=== PATIENT | female | born 1930 | race Two or more races ===

== ENCOUNTER 2016-08-03 19:11 | Inpatient (IN) | payer MEDICARE, OTHER ==
[~2016-08-03] VITALS: Ht 152.4 cm; Wt 69.5 kg
[~2016-08-03 19:11] MED LIST: ACET1TAB33 PO; AMIT25TA PO; AMOX1TAB10 PO; ANAS1TAB PO; ASPI-482 PO; BRIM5DRO4 OP; CALC1TAB PO; CARB15DR98 OP; CEPH-264 PO; CLIN300C86 PO; CLOP75TA PO; CYCL1DRO EACHEYE; DOCU100C5 PO; ERTA1VIA2 IV; FAMO40TA4 PO; FENO145T2 PO; FENO150C3 PO; FERR-26 PO; FLAX100031 PO; INSU100I13 SQ; INSU100I17 SQ; INSU100V31 SQ; INSU100V8 SQ; LEVO25TA4 PO; LINA5TAB PO; LISI2.5T PO; LORA10TA3 PO; MECL12.52 PO; METF500T9 PO; MUPI22OI TP; MUPI22OI2 TP; NIAC500T9 PO; PREG150C PO; PREG50CA PO; SYNTHROID; TRAV2.5D2 OP; TRAV5DRO LEFTEYE
[2016-08-03 19:59] LABS: BASO # 0.1 x10^3/uL (0.0-0.2); BASO % 0 % (0-3); EOS % 0 % (0-3); HEMATOCRIT 28.1 % (36.0-47.0); HEMOGLOBIN 9.1 g/dL (12.0-15.5); LYMPH # 0.6 x10^3/uL (1.0-4.8); LYMPH % 3 % (24-48); MEAN CORPUSCULAR HEMOGLOBIN 27 pg (25-35); MEAN CORPUSCULAR HGB CONC 33 g/dL (31-37); MEAN CORPUSCULAR VOLUME 83 fL (79-100); MONO % 4 % (0-9); NEUT % 92 % (31-73); PLATELET COUNT 202 x10^3/uL (140-400); RED BLOOD COUNT 3.39 x10^6/uL (3.50-5.40); RED CELL DISTRIBUTION WIDTH 15.5 % (11.5-14.5); WHITE BLOOD COUNT 20.2 x10^3/uL (4.0-11.0)
[2016-08-03] MEDS ORDERED: IV NORMAL SALINE 1000ML BAG 1,000 ML IV ONE (20:00)
[2016-08-03] MEDS ORDERED: ACETAMINOPHEN 500 MG TABLET PO ONE (20:00)
[2016-08-03 20:05] LABS: CALCIUM 8.8 mg/dL (8.5-10.1); CREATININE 1.1 mg/dL (0.6-1.0); GFR 47.3; POTASSIUM 3.5 mmol/L (3.5-5.1)
[2016-08-03 20:11] LABS: ALBUMIN 2.7 g/dL (3.4-5.0); ALBUMIN/GLOBULIN RATIO 0.6 (1.0-1.7); TOTAL BILIRUBIN 0.3 mg/dL (0.2-1.0)
[2016-08-03 20:36] LABS: HYPOCHROMIA SLIGHT; PLT ESTIMATE ADEQUATE (ADEQUATE)
[2016-08-03 20:37] LABS: ANISOCYTOSIS SLIGHT; TOXIC GRANULATION SLIGHT
[2016-08-03 20:43] LABS: OBC FLU VALID
[2016-08-03] MEDS ORDERED: CEFTRIAXONE 1GM IVPB FOR OMNI 50 ML IV ONE (21:00)
[2016-08-03] MEDS: IV NORMAL SALINE 1000ML BAG 1,000 ML IV SCH (21:12)
[2016-08-03] MEDS ORDERED: ONDANSETRON PF 4 MG/2 ML VIAL. IV PRN (21:15)
[2016-08-03] MEDS ORDERED: IV NORMAL SALINE 500ML BAG 500 ML IV ONE (21:30)
[2016-08-04] VITALS (14 sets, daily range): BP systolic 55–140; BP diastolic 35–58
[2016-08-04] MEDS ORDERED: MULT-671 PO (01:15)
[2016-08-04] MEDS ORDERED: LEVO50TA5 PO (01:15)
[2016-08-04] MEDS ORDERED: INSU100I27 SQ (01:15)
[2016-08-04] MEDS ORDERED: CHLO15MO2 (01:15)
[2016-08-04] MEDS ORDERED: ACET325T21 PO (01:15)
[2016-08-04] MEDS ORDERED: FURO-69 PO (01:15)
[2016-08-04] MEDS ORDERED: PANT40TA3 PO (01:15)
[2016-08-04] MEDS ORDERED: CEFE1VIA5 IJ (01:15)
[2016-08-04] MEDS ORDERED: LACT1CAP2 PO (01:15)
[2016-08-04] MEDS ORDERED: AMLO5TAB2 PO (01:15)
[2016-08-04] MEDS ORDERED: SILV20CR4 TP (01:15)
[2016-08-04] MEDS: ACETAMINOPHEN 325 MG TABLET. PO PRN ×2 (02:21→10:51)
[2016-08-04] MEDS: IV NORMAL SALINE 1000ML BAG 1,000 ML IV SCH ×2 (05:12→13:12)
--- NOTE | 2016-08-04 06:01 | EKG ---
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
--- NOTE | 2016-08-04 08:00 | RAD ---
Indication: Fever today. Hypertension. Technique: Upright portable chest radiograph was obtained. Comparison is from July 10, 2015. Findings: There is minimal basilar atelectasis or less likely infiltrate. Upper lung spann are clear. The heart is not enlarged. The pulmonary vasculature may be mildly cephalized. Right PICC line is noted. There are degenerative changes in the shoulders. Impression: 1. Mild basilar atelectasis and/or infiltrate. 2. Mild vascular congestion also suspected.
--- NOTE | 2016-08-04 09:16 | PDOC ---
Infectious Disease Note Subjective Subjective Pt known to us, was on cefepime at rehab , came here with fever 1 days origin, no n/v/pain was walking and doing really good per daughter. Diarrhea here today. culture and c diff ordered and pending ROS RIYA HEENT: Denies blurred vision, sore throat CV: Denies chest pain RESP: Denies shortness of air, cough GI: Denies n/v/d NEURO: Denies confusion, dizziness MSK: Denies weakness, joint pain/swelling Vital Sign Vital Signs Vital Signs Date Time Temp Pulse Resp B/P Pulse Ox O2 Delivery O2 Flow Rate FiO2 08/04/16 07:00 100.4 91 18 102/42 91 Room Air 100.4 Physical Exam PHYSICAL EXAM GENERAL: NAD, Alert HEENT: PERRL, OC/OP NECK: Supple, no JVD, no LN LUNGS: Clear HEART: S1S2, no gallop, no murmur ABD: Soft, NT, no organomegaly, no rebound EXT: No edema, no cyanosis,, left foot wound clean UR COORDINATOR: Alert, oriented x 3, no focal neurologic deficit SKIN: No rash IV: picc site good Labs Lab Laboratory Tests Test 08/03/16 19:35 08/03/16 19:50 08/03/16 20:09 08/04/16 03:29 White Blood Count 20.2x10^3/uL (4.0-11.0) Red Blood Count 3.39x10^6/uL (3.50-5.40) Hemoglobin 9.1g/dL (12.0-15.5) Hematocrit 28.1% (36.0-47.0) Mean Corpuscular Volume 83fL (79-100) Mean Corpuscular Hemoglobin 27pg (25-35) Mean Corpuscular Hemoglobin Concent 33g/dL (31-37) Red Cell Distribution Width 15.5% (11.5-14.5) Platelet Count 202x10^3/uL (140-400) Neutrophils (%) (Auto) 92% (31-73) Lymphocytes (%) (Auto) 3% (24-48) Monocytes (%) (Auto) 4% (0-9) Eosinophils (%) (Auto) 0% (0-3) Basophils (%) (Auto) 0% (0-3) Neutrophils # (Auto) 18.6x10^3uL (1.8-7.7) Lymphocytes # (Auto) 0.6x10^3/uL (1.0-4.8) Monocytes # (Auto) 0.9x10^3/uL (0.0-1.1) Eosinophils # (Auto) 0.0x10^3/uL (0.0-0.7) Basophils # (Auto) 0.1x10^3/uL (0.0-0.2) Segmented Neutrophils % 81% (35-66) Band Neutrophils % 15% (0-9) Lymphocytes % 4% (24-48) Toxic Granulation Slight Platelet Estimate Adequate (ADEQUATE) Hypochromasia Slight Anisocytosis Slight Sodium Level 136mmol/L (136-145) Potassium Level 3.5mmol/L (3.5-5.1) Chloride Level 102mmol/L (98-107) Carbon Dioxide Level 24mmol/L (21-32) Anion Gap 10 (6-14) Blood Urea Nitrogen 32mg/dL (7-20) Creatinine 1.1mg/dL (0.6-1.0) Estimated GFR (Cockcroft-Gault) 47.3 BUN/Creatinine Ratio 29 (6-20) Glucose Level 80mg/dL (70-99) Lactic Acid Level 1.4mmol/L (0.4-2.0) Calcium Level 8.8mg/dL (8.5-10.1) Total Bilirubin 0.3mg/dL (0.2-1.0) Aspartate Amino Transf (AST/SGOT) 17U/L (15-37) Alanine Aminotransferase (ALT/SGPT) 13U/L (14-59) Alkaline Phosphatase 81U/L (46-116) Total Protein 7.0g/dL (6.4-8.2) Albumin 2.7g/dL (3.4-5.0) Albumin/Globulin Ratio 0.6 (1.0-1.7) Glucose (Fingerstick) 85mg/dL (70-99) 132mg/dL (70-99) Influenza Type A Antigen Negative (NEGATIVE) Influenza Type B Antigen Negative (NEGATIVE) Objective Assessment Fever Leukocytosis Left foot wound /osteo DM Diarrhea rule out c diff Plan Plan of Care iv vanc and zosyn, po vanc check cultures and c diff d/w dr Mcdonough d/w daughter supportive care JOHANA MALDONADO MD Aug 04, 2016 09:16
[2016-08-04] MEDS ORDERED: ACETAMINOPHEN 325 MG TABLET. PO PRN (09:30)
[2016-08-04] MEDS ORDERED: VANCOMYCIN 1.5 GM in IV NORMAL SALINE 500ML BAG 500 ML IV ONE (09:30)
[2016-08-04] MEDS ORDERED: DEXTROSE 50% 25 GM / 50ML DISP.SYRIN. IV PRN (09:30)
[2016-08-04] MEDS ORDERED: ACETAMINOPHEN/CODEINE 300/30MG TABLET PO PRN (09:30)
--- NOTE | 2016-08-04 09:39 | PDOC ---
Provider Note Provider Note Pt seen.H&P dictated. #[id number] JAMES CORCORAN MD Aug 04, 2016 09:39
[2016-08-04] MEDS ORDERED: FLUCONAZOLE 200MG/100ML PREMIX 100 ML IV SCH (10:00)
[2016-08-04] MEDS ORDERED: LISINOPRIL 2.5 MG TABLET PO SCH (10:30)
[2016-08-04] MEDS ORDERED: HEPARIN PF for SUB-Q USE 5,000 UNIT/0.5 ML VIAL. SQ SCH (10:30)
[2016-08-04] MEDS ORDERED: FUROSEMIDE 20 MG TABLET PO SCH (10:30)
[2016-08-04] MEDS ORDERED: AMLODIPINE BESYLATE 5 MG TABLET PO SCH (10:30)
[2016-08-04] MEDS ORDERED: IV NORMAL SALINE 1000ML BAG 1,000 ML IV SCH ×2 (10:30→15:30)
--- NOTE | 2016-08-04 10:40 | EKG ---
[facility] [address] [place] [address] Test Date: 2016-08-04 Test Time: 10:38:20 Pat Name: CHRIS CURRIE Department: Room: 648 1 Gender: F Master [place]: HERMINIA : 1930 Requested By: JAMES CORCORAN Order Number: [id number] Reading MD: Kvng Oneal Measurements Intervals [place] Rate: 101 P: 27 MI: 154 QRS: 20 QRSD: 90 T: 22 QT: 338 QTc: 439 Interpretive Statements SINUS TACHYCARDIA NO SPECIFIC ECG ABNORMALITIES Electronically Signed On 08-04-2016 10:55:44 NETWORK DESIGNER by Kvng Oneal
[2016-08-04] MEDS: CLOPIDOGREL BISULFATE 75 MG TABLET PO SCH (10:51)
[2016-08-04] MEDS: PREGABALIN 50 MG CAPSULE PO SCH ×2 (10:52→21:09)
[2016-08-04] MEDS: ASPIRIN ENTERIC COATED 81 MG TABLET.DR. PO SCH (10:53)
[2016-08-04] MEDS: LINAGLIPTIN 5 MG TABLET PO SCH (10:53)
[2016-08-04] MEDS: PANTOPRAZOLE 40 MG TABLET. PO SCH (10:53)
[2016-08-04] MEDS: LEVOTHYROXINE 50 MCG TABLET PO SCH (10:53)
[2016-08-04] MEDS: VANCOMYCIN 125 MG/2.5 ML ORAL SOLUTION. PO SCH ×5 (10:54→22:17)
[2016-08-04] MEDS: ANASTROZOLE 1 MG TABLET PO SCH (11:09)
[2016-08-04] MEDS: INSULIN ASPART 300 UNITS/3 ML INSULN.PEN SQ SCH ×2 (12:00→18:13)
[2016-08-04] MEDS ORDERED: ALBUTEROL SULFATE 2.5 MG/3 ML NEBU. NEB ONE (12:30)
[2016-08-04] MEDS ORDERED: HEPARIN for IV BOLUS 10,000 UNIT/10 ML VIAL. IV PRN (12:45)
[2016-08-04 12:56] LABS: FIO2 ABG 32; HCO3 ABG 13 mmol/L (21-28); PCO2 ABG 22 mmHg (35-46); PO2 ABG 63 mmHg (65-108); SAT O2 ABG 91 % (92-99)
--- NOTE | 2016-08-04 12:56 | EKG ---
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
[2016-08-04] MEDS ORDERED: FUROSEMIDE 40 MG/4 ML VIAL IVP ONE (13:00)
[2016-08-04] MEDS ORDERED: ASPIRIN 325 MG TABLET PO ONE (13:00)
--- NOTE | 2016-08-04 13:08 | PDOC2 ---
KAYLA WAITE JAVA J2EE LEAD 08/04/16 1308: CARDIAC CONSULT DATE OF CONSULT Date of Consult DATE: 08/04/16 TIME: 12:30 REASON FOR CONSULT Reason for Consult: Elevated troponin REFERRING PHYSICIAN Referring Physician: Vane SOURCE Source: Caregiver (daughter), Chart review, Patient HISTORY OF PRESENT ILLNESS HISTORY OF PRESENT ILLNESS This is an 86 yo female admitted for fever and diarrhea. Talked to son briefly via phone and reported that her left foot has infection and is being treated with antibiotics. Limited details as pt is and daughter is unable to speak much Divehi. Upon admission she has been noted with elevated troponin but at the same time noted with high fever. She is currently sitting up and was noted to be in distress, SOA. After breathing treatment her SOA did not significantly improve. There was no noted cardiac symptoms prior to hospitalization. Currently denies any chest pain but SOA. No prior nausea, vomiting. Denies any prior CAD but per daughter noted with bypass to lower extremities I believe in relation to her arteries with notable toe amputations in the past. She is positive for HTN, HLP, and DM2. Rapid response was called since due to progressive SOA. EKG changes have been noted and pt is to transfer to ICU. PAST MEDICAL HISTORY Cardiovascular: HTN, Hyperlipidemia, Other (PAD) Pulmonary: No pertinent hx CENTRAL NERVOUS SYSTEM: Periperal neuropathy, Vertigo GI: GERD Heme/Onc: Anemia NOS, Cancer Hepatobiliary: No pertinent hx Psych: Anxiety Musculoskeletal: Osteoarthritis, Other (osteomyelitis) Rheumatologic: No pertinent hx Infectious disease: No pertinent hx ENT: Other (glaucoma) Renal/: Urinary Incontinence Endocrine: Diabetes (2), Hypothyroidism, Osteoporosis PAST SURGICAL HISTORY Past Surgical History: Cholecystectomy, Cataract Removal, Mastectomy (left), Other (right toe amputations) FAMILY HISTORY Family History: Diabetes SOCIAL HISTORY Smoke: No ALCOHOL: none Drugs: None Lives: with Family CURRENT MEDICATIONS CURRENT MEDICATIONS Current Medications Medications (Trade) Dose Ordered Sig/Kyle Route PRN Reason Start Time Stop Time Status Last Admin Dose Admin Acetaminophen 1000 mg 1,000 mg 1X ONCE PO 08/03/16 20:00 08/03/16 20:01 DC 08/03/16 20:02 Sodium Chloride 1,000 ml @ 1,000 mls/hr 1X ONCE IV 08/03/16 20:00 08/03/16 20:59 DC 08/03/16 20:02 Ceftriaxone Sodium 50 ml @ 100 mls/hr 1X ONCE IV 08/03/16 21:00 08/03/16 21:29 DC 08/03/16 22:07 Sodium Chloride 500 ml @ 500 mls/hr 1X ONCE IV 08/03/16 21:30 08/03/16 22:29 DC 08/03/16 23:20 Sodium Chloride (Iv Sodium Chloride 0.9% 1000ml Bag) 1,000 ml @ 125 mls/hr Q8H IV 08/03/16 21:12 08/04/16 21:11 08/04/16 05:12 Acetaminophen 650 mg 650 mg PRN Q4HRS PRN PO FEVER 08/03/16 21:15 08/04/16 21:14 08/04/16 10:51 Vancomycin HCl/ Sodium Chloride (Iv Sodium Chloride 0.9% 500ml Bag) 500 ml @ 250 mls/hr 1X ONCE IV 08/04/16 09:30 08/04/16 11:29 DC 08/04/16 10:54 Vancomycin HCl 125 mg [id number] PO 08/04/16 10:00 08/04/16 10:54 Amlodipine Besylate (Norvasc) 5 mg DAILY PO 08/04/16 10:30 08/04/16 10:52 Anastrozole (Arimidex) 1 mg DAILY PO 08/04/16 10:30 08/04/16 11:09 Aspirin (Ecotrin) 81 mg DAILY PO 08/04/16 10:30 08/04/16 10:53 Clopidogrel Bisulfate (Plavix) 75 mg DAILY PO 08/04/16 10:30 08/04/16 10:51 Furosemide (Lasix) 20 mg DAILY PO 08/04/16 10:30 08/04/16 10:53 Levothyroxine Sodium (Synthroid) 50 mcg DAILY07 PO 08/04/16 10:30 08/04/16 10:53 Linagliptin (Tradjenta) 5 mg DAILY PO 08/04/16 10:30 08/04/16 10:53 Lisinopril (Prinivil) 2.5 mg DAILY PO 08/04/16 10:30 08/04/16 10:51 Pantoprazole Sodium (Protonix) 40 mg DAILYAC PO 08/04/16 10:30 08/04/16 10:53 Pregabalin (Lyrica) 50 mg BID PO 08/04/16 10:30 08/04/16 10:52 Heparin Sodium (Porcine) 5,000 unit Q12HR SQ 08/04/16 10:30 08/04/16 11:09 Albuterol Sulfate (Ventolin Neb Soln) 2.5 mg 1X ONCE NEB 08/04/16 12:30 08/04/16 12:31 08/04/16 12:29 ALLERGIES ALLERGIES: Coded Allergies: No Known Drug Allergies (Unverified , 04/29/14) ROS Review of System limited, language barrier, pt in distress PHYSICAL EXAM General: Alert, Cooperative, moderate distress HEENT: Atraumatic, Mucous membr. moist/pink Lungs: Other (diffuse crackles with faint wheeze) Heart: Regular rate, Normal S1, Normal S2, Other (2/6 systolic murmur to LLS border) Abdomen: Soft, No tenderness Skin: Other (left toe surgical wound) Neuro: Normal speech, Sensation intact Psych/Mental Status: Mood NL MUSCULOSKELETAL: Osteoarthritic changes both hands VITALS VITALS Vital Signs Date Time Temp Pulse Resp B/P Pulse Ox O2 Delivery O2 Flow Rate FiO2 08/04/16 12:22 88 Room Air 08/04/16 11:00 102.6 102 18 116/49 102.6 LABS Lab: Laboratory Tests Test 08/03/16 19:35 08/03/16 19:50 08/03/16 20:09 08/04/16 00:15 White Blood Count 20.2x10^3/uL (4.0-11.0) Red Blood Count 3.39x10^6/uL (3.50-5.40) Hemoglobin 9.1g/dL (12.0-15.5) Hematocrit 28.1% (36.0-47.0) Mean Corpuscular Volume 83fL (79-100) Mean Corpuscular Hemoglobin 27pg (25-35) Mean Corpuscular Hemoglobin Concent 33g/dL (31-37) Red Cell Distribution Width 15.5% (11.5-14.5) Platelet Count 202x10^3/uL (140-400) Neutrophils (%) (Auto) 92% (31-73) Lymphocytes (%) (Auto) 3% (24-48) Monocytes (%) (Auto) 4% (0-9) Eosinophils (%) (Auto) 0% (0-3) Basophils (%) (Auto) 0% (0-3) Neutrophils # (Auto) 18.6x10^3uL (1.8-7.7) Lymphocytes # (Auto) 0.6x10^3/uL (1.0-4.8) Monocytes # (Auto) 0.9x10^3/uL (0.0-1.1) Eosinophils # (Auto) 0.0x10^3/uL (0.0-0.7) Basophils # (Auto) 0.1x10^3/uL (0.0-0.2) Segmented Neutrophils % 81% (35-66) Band Neutrophils % 15% (0-9) Lymphocytes % 4% (24-48) Toxic Granulation Slight Platelet Estimate Adequate (ADEQUATE) Hypochromasia Slight Anisocytosis Slight Sodium Level 136mmol/L (136-145) Potassium Level 3.5mmol/L (3.5-5.1) Chloride Level 102mmol/L (98-107) Carbon Dioxide Level 24mmol/L (21-32) Anion Gap 10 (6-14) Blood Urea Nitrogen 32mg/dL (7-20) Creatinine 1.1mg/dL (0.6-1.0) Estimated GFR (Cockcroft-Gault) 47.3 BUN/Creatinine Ratio 29 (6-20) Glucose Level 80mg/dL (70-99) Lactic Acid Level 1.4mmol/L (0.4-2.0) Calcium Level 8.8mg/dL (8.5-10.1) Total Bilirubin 0.3mg/dL (0.2-1.0) Aspartate Amino Transf (AST/SGOT) 17U/L (15-37) Alanine Aminotransferase (ALT/SGPT) 13U/L (14-59) Alkaline Phosphatase 81U/L (46-116) Total Protein 7.0g/dL (6.4-8.2) Albumin 2.7g/dL (3.4-5.0) Albumin/Globulin Ratio 0.6 (1.0-1.7) Glucose (Fingerstick) 85mg/dL (70-99) Influenza Type A Antigen Negative (NEGATIVE) Influenza Type B Antigen Negative (NEGATIVE) Nasal Screen MRSA (PCR) Negative (Negative) Test 08/04/16 03:29 08/04/16 04:00 08/04/16 09:35 Glucose (Fingerstick) 132mg/dL (70-99) Clostridium difficile Toxin (PCR) Positive (Negative) Troponin I Quantitative 1.413ng/mL (0.000-0.055) ASSESSMENT/PLAN ASSESSMENT/PLAN 1. Sepsis: T max 102.6, positive for C-diff with left foot osteomyelitis. ID following 2. Acute CHF with possible systolic dysfunction: Lasix IV to commence. Multifactorial with underlying NSTEMI. BMP, Mg, ABG, PCXR. Transfer to ICU. Replace Mg and K as warranted 3. NSTEMI: EKG changes. SR with notable ST depression to anterolateral leads. Initial troponin at 1.4, will trend. CP free with significant SOA. Heparin drip per protocol to commence. ASA. LHC once ID clears. TTE today. 4. Hx of PAD with past bypass: on plavix at home. 5. HTN: controlled 6. HLP: TSH, lipid panel. 7. DM2: per PCP 8. Hx of breast CA 9. Anemia of chronic disease: Hgb 9.1, CBC today 10. 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 Defer further to PCP Problems: GERI ANGULO MD 08/04/16 1645: CARDIAC CONSULT ALLERGIES ALLERGIES: Coded Allergies: No Known Drug Allergies (Unverified , 04/29/14) ASSESSMENT/PLAN ASSESSMENT/PLAN Patient seen and examined. Agree with AUTOMOBILE CLUB TRAVEL COUNSELOR's assessment and plan. Continue intravenous antibiotics for sepsis. Consider starting pressors for hypotension. Diabetes very gently for mild acute on chronic systolic heart failure. 2-D echo showed LVEF 40-45%. Plan for cardiac catheterization for non -STEMI once hemodynamically stable. Agree with heparin infusion per protocol. Thank you for your consultation. Problems: KAYLA WAITE APRN Aug 04, 2016 13:08 GERI ANGULO MD Aug 04, 2016 16:45
[2016-08-04] MEDS: VANCOMYCIN PER PHARMACY MC PRN ×2 (13:16→13:22)
[2016-08-04 13:28] LABS: CALCIUM 8.1 mg/dL (8.5-10.1); CHOLESTEROL/HDL RATIO 3.7; CREATININE 1.5 mg/dL (0.6-1.0); GFR 33.1; MAGNESIUM 1.4 mg/dL (1.8-2.4); POTASSIUM 3.5 mmol/L (3.5-5.1)
[2016-08-04 13:34] LABS: CKMB INDEX 0.8 % (0-4); CKMB MASS 5.8 ng/mL (0.0-3.6)
--- NOTE | 2016-08-04 14:17 | RAD ---
Indication: Dyspnea. Technique: Upright portable chest radiograph was obtained. Comparison is from one day earlier. Findings: Right PICC line is in place. Pulmonary vasculature is further cephalized with interstitial lung markings now increased. Right costophrenic angle is blunted. Heart is upper limits of normal in size. Basilar opacities are increased. Impression: 1. Vascular congestion and interstitial edema, increased. 2. Basilar atelectasis, increased. 3. Small right pleural effusion now suspected.
[2016-08-04] MEDS ORDERED: INSULIN ASPART 300 UNITS/3 ML INSULN.PEN SQ ONE ×2 (14:30→23:00)
[2016-08-04 14:39] LABS: BASO % 0 % (0-3); EOS % 0 % (0-3); HEMATOCRIT 26.8 % (36.0-47.0); HEMOGLOBIN 8.9 g/dL (12.0-15.5); LYMPH # 0.2 x10^3/uL (1.0-4.8); LYMPH % 4 % (24-48); MEAN CORPUSCULAR HEMOGLOBIN 28 pg (25-35); MEAN CORPUSCULAR HGB CONC 33 g/dL (31-37); MEAN CORPUSCULAR VOLUME 84 fL (79-100); MONO % 1 % (0-9); NEUT % 94 % (31-73); PLATELET COUNT 170 x10^3/uL (140-400); RED BLOOD COUNT 3.21 x10^6/uL (3.50-5.40); RED CELL DISTRIBUTION WIDTH 15.6 % (11.5-14.5); WHITE BLOOD COUNT 5.8 x10^3/uL (4.0-11.0)
--- NOTE | 2016-08-04 14:48 | PDOC2 ---
CONSULT Date of Consult Date of Consult DATE: 08/04/16 TIME: 14:35 Reason for Consult Reason for Consult: Left fifth toe open amputation Identification/Chief Complaint Chief Complaint Patient admitted with fever, weakness Source Source: Caregiver, Chart review History of Present Illness Reason for Visit: This is a pleasant 86 year old female admitted with fever and weakness. She is well known to our practice with recent left fifth toe open amputation with wound vac. The family states that the wound vac was removed last week with continued local wound care. Past Medical History Cardiovascular: HTN, Hyperlipidemia, Other (PAD) Pulmonary: No pertinent hx CENTRAL NERVOUS SYSTEM: Periperal neuropathy, Vertigo GI: GERD Heme/Onc: Anemia NOS, Cancer Hepatobiliary: No pertinent hx Psych: Anxiety Musculoskeletal: Osteoarthritis, Other (osteomyelitis) Rheumatologic: No pertinent hx Infectious disease: No pertinent hx ENT: Other (glaucoma) Renal/: Urinary Incontinence Endocrine: Diabetes (2), Hypothyroidism, Osteoporosis Past Surgical History Past Surgical History: Cholecystectomy, Cataract Removal, Mastectomy (left), Other (left fifth toe amputation) Family History Family History: Diabetes Social History No ALCOHOL: none Drugs: None Lives: with Family Current Problem List Problem List Problems Medical Problems: (1) NSTEMI (non-ST elevated myocardial infarction) Status: Acute (2) Sepsis Status: Acute Current Medications Current Medications Current Medications Acetaminophen 1000 mg 1,000 mg 1X ONCE PO Last administered on 08/03/16 20:02 ; Start 08/03/16 at 20:00; Stop 08/03/16 at 20:01; Status DC Sodium Chloride 1,000 ml @ 1,000 mls/hr 1X ONCE IV Last administered on 20:02; Start 08/03/16 at 20:00; Stop 08/03/16 at 20:59; Status DC Ceftriaxone Sodium 50 ml @ 100 mls/hr 1X ONCE IV Last administered on 22:07; Start 08/03/16 at 21:00; Stop 08/03/16 at 21:29; Status DC Sodium Chloride (Iv Sodium Chloride 0.9% 500ml Bag) 500 ml @ 500 mls/hr 1X ONCE IV Last administered on 08/03/16 23:20; Start 08/03/16 at 21:30; Stop at 22:29; Status DC Ondansetron HCl 4 mg 4 mg PRN Q8HRS PRN IV NAUSEA/VOMITING; Start 08/03/16 at 21 :15; Stop 08/04/16 at 21:14 Sodium Chloride (Iv Sodium Chloride 0.9% 1000ml Bag) 1,000 ml @ 125 mls/hr Q8H IV Last administered on 08/04/16 05:12; Start 08/03/16 at 21:12; Stop 08/04/16 at 21:11 Acetaminophen 650 mg 650 mg PRN Q4HRS PRN PO FEVER Last administered on 10:51; Start 08/03/16 at 21:15; Stop 08/04/16 at 21:14 Vancomycin HCl/ Sodium Chloride (Iv Sodium Chloride 0.9% 500ml Bag) 500 ml @ 250 mls/hr 1X ONCE IV Last administered on 08/04/16 10:54; Start 08/04/16 at 09 :30; Stop 08/04/16 at 11:29; Status DC Vancomycin HCl 1 each 1 each PRN DAILY PRN MC SEE COMMENTS Last administered on 08/04/16 13:22; Start 08/04/16 at 09:15 Piperacillin Sod/ Tazobactam Sod/ Sodium Chloride (Zosyn/Iv Sodium Chloride 0.9 % 50ml) 50 ml @ 100 mls/hr Q6HRS IV ; Start 08/04/16 at 10:00 Vancomycin HCl 125 mg 125 mg [id number] PO Last administered on 08/04/16 10:54; Start 08/04/16 at 10:00 Fluconazole/ Sodium Chloride (Diflucan 200mg/ 100ml Premix) 100 ml @ 100 mls/ hr Q24H IV ; Start 08/04/16 at 10:00 Acetaminophen (Tylenol) 325 mg PRN QID PRN PO FEVER; Start 08/04/16 at 09:30 Acetaminophen/ Codeine Phosphate (Tylenol #3) 1 tab PRN BID PRN PO PAIN; Start 08/04/16 at 09:30 Amitriptyline HCl (Elavil) 25 mg HS PO ; Start 08/04/16 at 21:00 Amlodipine Besylate (Norvasc) 5 mg DAILY PO Last administered on 08/04/16 10:52 ; Start 08/04/16 at 10:30 Anastrozole (Arimidex) 1 mg DAILY PO Last administered on 08/04/16 11:09; Start 08/04/16 at 10:30 Aspirin (Ecotrin) 81 mg DAILY PO Last administered on 08/04/16 10:53; Start 08/04/16 at 10:30 Clopidogrel Bisulfate (Plavix) 75 mg DAILY PO Last administered on 08/04/16 10: 51; Start 08/04/16 at 10:30 Furosemide (Lasix) 20 mg DAILY PO Last administered on 08/04/16 10:53; Start at 10:30; Stop 08/04/16 at 14:25; Status DC Insulin Aspart (Novolog) 7 units TIDWMEALS SQ ; Start 08/04/16 at 12:00 Insulin Detemir (Levemir) 10 units DAILY@18 SQ ; Start 08/04/16 at 18:00; Stop at 18:00; Status DC Levothyroxine Sodium (Synthroid) 50 mcg DAILY07 PO Last administered on 10:53; Start 08/04/16 at 10:30 Linagliptin (Tradjenta) 5 mg DAILY PO Last administered on 08/04/16 10:53; Start 08/04/16 at 10:30 Lisinopril (Prinivil) 2.5 mg DAILY PO Last administered on 08/04/16 10:51; Start 08/04/16 at 10:30 Pantoprazole Sodium (Protonix) 40 mg DAILYAC PO Last administered on 08/04/16 10:53; Start 08/04/16 at 10:30 Pregabalin (Lyrica) 50 mg BID PO Last administered on 08/04/16 10:52; Start 08/04/16 at 10:30 Silver Sulfadiazine (Silvadene) 1 suzanna DAILY TP ; Start 08/04/16 at 10:30 Dextrose 12.5 gm PRN Q15MIN PRN IV SEE COMMENTS; Start 08/04/16 at 09:30 Heparin Sodium (Porcine) 5,000 unit Q12HR SQ Last administered on 08/04/16 11: 09; Start 08/04/16 at 10:30; Stop 08/04/16 at 12:39; Status DC Insulin Detemir 20 units 20 units DAILY@18 SQ ; Start 08/04/16 at 18:00 Sodium Chloride (Iv Sodium Chloride 0.9% 1000ml Bag) 1,000 ml @ 100 mls/hr Q10H IV ; Start 08/04/16 at 10:30 Albuterol Sulfate 2.5 mg 2.5 mg 1X ONCE NEB Last administered on 08/04/16 12: 29; Start 08/04/16 at 12:30; Stop 08/04/16 at 12:31; Status DC Heparin Sodium/ Dextrose 500 ml @ 0 mls/hr CONT PRN IV SEE I/O RECORD; Start at 12:45 Heparin Sodium (Porcine) 1,600 unit PRN Q6HRS PRN IV FOR UFH LEVEL LESS THAN 0.2; Start 08/04/16 at 12:45 Info (Anti-Coagulation Monitoring By Pharmacy) 1 each PRN DAILY PRN MC SEE COMMENTS; Start 08/04/16 at 12:45 Furosemide (Lasix) 40 mg 1X ONCE IVP Last administered on 08/04/16 13:12; Start 08/04/16 at 13:00; Stop 08/04/16 at 13:01; Status DC Aspirin 325 mg 325 mg 1X ONCE PO ; Start 08/04/16 at 13:00; Stop 08/04/16 at 13: 01; Status DC Vancomycin HCl/ Sodium Chloride (Iv Sodium Chloride 0.9% 250ml) 250 ml @ 167 mls/hr Q24H IV ; Start 08/05/16 at 11:00 Vancomycin HCl 1 each 1X ONCE MC ; Start 08/06/16 at 10:30; Stop 08/06/16 at 10: 31 Insulin Aspart (Novolog) 3 units ONCE ONCE SQ Last administered on 08/04/16 14 :14; Start 08/04/16 at 14:30; Stop 08/04/16 at 14:31; Status DC Furosemide 40 mg 40 mg DAILY IVP ; Start 08/04/16 at 15:00 Magnesium Sulfate/ Dextrose 100 ml @ 25 mls/hr 1X ONCE IV ; Start 08/04/16 at 15:00; Stop 08/04/16 at 18:59 Potassium Chloride (KCl Premix 10meq) 100 ml @ 100 mls/hr Q1H IV ; Start at 15:00; Stop 08/04/16 at 16:59 Active Scripts Active Novolog Flexpen (Insulin Aspart) 300 Units/3 Ml Insuln.pen 7 Units SQ TIDWMEALS Reported Xkmlr-Djnavcx-Sdurxunf Tablet (Multivit-Min/Iron Fum/Folic AC) 1 Each Tablet 1 Each PO Acetaminophen 325 Mg Tablet 325 Mg PO Silvadene (Silver Sulfadiazine) 20 Gm Cream..g. 1 Suzanna TP DAILY Levemir Flextouch (Insulin Detemir) 100 Unit/1 Ml Insuln.pen 100 Unit SQ Levothyroxine Sodium 50 Mcg Tablet 1 Tab PO DAILY Acidophilus (Lactobacillus Acidophilus) 1 Each Capsule 1 Each PO Lasix (Furosemide) 20 Mg Tablet 1 Tab PO DAILY Protonix (Pantoprazole Sodium) 40 Mg Tablet.dr 1 Tab PO DAILY Peridex (Chlorhexidine Gluconate) 15 Ml Mouthwash 15 Ml Cefepime Hcl 1 Gm Vial 1 Gm IJ Amlodipine Besylate 5 Mg Tablet 5 Mg PO DAILY Acetaminophen-Cod #3 Tablet (Acetaminophen/Codeine Phosphate) 1 Each Tablet 1 Tab PO BID PRN Lyrica (Pregabalin) 50 Mg Capsule 50 Mg PO BID Aspir 81 (Aspirin) 81 Mg Tablet.dr 81 Mg PO DAILY Lisinopril 2.5 Mg Tablet 2.5 Mg PO DAILY Tradjenta (Linagliptin) 5 Mg Tablet 5 Mg PO DAILY Clopidogrel (Clopidogrel Bisulfate) 75 Mg Tablet 75 Mg PO DAILY Amitriptyline Hcl 25 Mg Tablet 25 Mg PO HS Anastrozole 1 Mg Tablet 1 Mg PO DAILY Allergies Allergies: Coded Allergies: No Known Drug Allergies (Unverified , 04/29/14) ROS Skin: Yes Other (negative except HPI) Physical Exam General: Alert Heart: Regular rate, Other (palpable femoral pulses bilaterally) Skin: Other (left fifth toe open amputation with some areas of fibrin and dusky tissue, foot warm, unable to palpate DP pulse) Vitals VITALS Vital Signs Date Time Temp Pulse Resp B/P Pulse Ox O2 Delivery O2 Flow Rate FiO2 08/04/16 12:22 88 Room Air 08/04/16 11:00 102.6 102 18 116/49 102.6 Labs Labs Laboratory Tests Test 08/03/16 19:35 08/03/16 19:50 08/03/16 20:09 08/04/16 00:15 White Blood Count 20.2x10^3/uL (4.0-11.0) Red Blood Count 3.39x10^6/uL (3.50-5.40) Hemoglobin 9.1g/dL (12.0-15.5) Hematocrit 28.1% (36.0-47.0) Mean Corpuscular Volume 83fL (79-100) Mean Corpuscular Hemoglobin 27pg (25-35) Mean Corpuscular Hemoglobin Concent 33g/dL (31-37) Red Cell Distribution Width 15.5% (11.5-14.5) Platelet Count 202x10^3/uL (140-400) Neutrophils (%) (Auto) 92% (31-73) Lymphocytes (%) (Auto) 3% (24-48) Monocytes (%) (Auto) 4% (0-9) Eosinophils (%) (Auto) 0% (0-3) Basophils (%) (Auto) 0% (0-3) Neutrophils # (Auto) 18.6x10^3uL (1.8-7.7) Lymphocytes # (Auto) 0.6x10^3/uL (1.0-4.8) Monocytes # (Auto) 0.9x10^3/uL (0.0-1.1) Eosinophils # (Auto) 0.0x10^3/uL (0.0-0.7) Basophils # (Auto) 0.1x10^3/uL (0.0-0.2) Segmented Neutrophils % 81% (35-66) Band Neutrophils % 15% (0-9) Lymphocytes % 4% (24-48) Toxic Granulation Slight Platelet Estimate Adequate (ADEQUATE) Hypochromasia Slight Anisocytosis Slight Sodium Level 136mmol/L (136-145) Potassium Level 3.5mmol/L (3.5-5.1) Chloride Level 102mmol/L (98-107) Carbon Dioxide Level 24mmol/L (21-32) Anion Gap 10 (6-14) Blood Urea Nitrogen 32mg/dL (7-20) Creatinine 1.1mg/dL (0.6-1.0) Estimated GFR (Cockcroft-Gault) 47.3 BUN/Creatinine Ratio 29 (6-20) Glucose Level 80mg/dL (70-99) Lactic Acid Level 1.4mmol/L (0.4-2.0) Calcium Level 8.8mg/dL (8.5-10.1) Total Bilirubin 0.3mg/dL (0.2-1.0) Aspartate Amino Transf (AST/SGOT) 17U/L (15-37) Alanine Aminotransferase (ALT/SGPT) 13U/L (14-59) Alkaline Phosphatase 81U/L (46-116) Total Protein 7.0g/dL (6.4-8.2) Albumin 2.7g/dL (3.4-5.0) Albumin/Globulin Ratio 0.6 (1.0-1.7) Glucose (Fingerstick) 85mg/dL (70-99) Influenza Type A Antigen Negative (NEGATIVE) Influenza Type B Antigen Negative (NEGATIVE) Nasal Screen MRSA (PCR) Negative (Negative) Test 08/04/16 03:29 08/04/16 04:00 08/04/16 09:35 08/04/16 12:33 Glucose (Fingerstick) 132mg/dL (70-99) Clostridium difficile Toxin (PCR) Positive (Negative) Troponin I Quantitative 1.413ng/mL (0.000-0.055) O2 Saturation 91% (92-99) Arterial Blood pH 7.40 (7.35-7.45) Arterial Blood pCO2 at Patient Temp 22mmHg (35-46) Arterial Blood pO2 at Patient Temp 63mmHg (65-108) Arterial Blood HCO3 13mmol/L (21-28) Arterial Blood Base Excess -10mmol/L (-3-3) FiO2 32 Laboratory Tests Test 08/04/16 12:45 Sodium Level 133mmol/L (136-145) Potassium Level 3.5mmol/L (3.5-5.1) Chloride Level 103mmol/L (98-107) Carbon Dioxide Level 15mmol/L (21-32) Anion Gap 15 (6-14) Blood Urea Nitrogen 34mg/dL (7-20) Creatinine 1.5mg/dL (0.6-1.0) Estimated GFR (Cockcroft-Gault) 33.1 Glucose Level 378mg/dL (70-99) Calcium Level 8.1mg/dL (8.5-10.1) Magnesium Level 1.4mg/dL (1.8-2.4) Creatine Kinase 733U/L (26-192) Creatine Kinase MB (Mass) 5.8ng/mL (0.0-3.6) Creatine Kinase MB Relative Index 0.8% (0-4) Triglycerides Level 176mg/dL (0-150) Cholesterol Level 158mg/dL (0-200) LDL Cholesterol, Calculated 80mg/dL (0-100) VLDL Cholesterol, Calculated 35mg/dL (0-40) HDL Cholesterol 43mg/dL (40-60) Cholesterol/HDL Ratio 3.7 Thyroid Stimulating Hormone (TSH) 0.955uIU/mL (0.358-3.74) Assessment/Plan Assessment/Plan Sepsis PVD with left fifth toe open amputation, wound clean with some fibrin and dusky tissue, might benefit from bedside debridement versus surgical debridement. Left leg failed bypass graft Discussed patient examination with Dr. Espinal, patient might benefit from some local bedside debridement and continued monitoring. Will consult wound care nurse, evaluate and treat, wound vac if possible. Patient may need left leg redo bypass in the future if amputation fails to heal when patient is medically stable. I agree with above assessment and plan. Please see subsequent progress note by me. BURKE VICTORIA APRN Aug 04, 2016 14:47 THAD IRAHETA II, MD Aug 05, 2016 17:26
--- NOTE | 2016-08-04 14:49 | HP ---
ADMIT DATE: 08/03/2016 PATIENT LOCATION: [facility]. REASON FOR ADMISSION TO THE HOSPITAL: Fever and sepsis. HISTORY OF PRESENT ILLNESS: The patient is an 86-year-old female. The patient was admitted last month for osteomyelitis of the left big toe. The patient underwent ray amputation of the toe and the wound was left to heal. The patient was seen by Infectious Disease. She also had intervention done to improve the circulation to the leg. The patient had a PICC line, was sent to [facility] [place] to continue IV antibiotics for a total of 4 weeks. The patient was discharged probably 2 weeks ago and she was doing well at the [facility]. She had a fever yesterday, got progressively worse. White count was 22,000 and the family decided to bring back to the hospital. She started having diarrhea yesterday, could be line infection, could be C. diff colitis. PAST MEDICAL HISTORY: The patient has history of diabetes, diabetic neuropathy, hypertension, peripheral vascular disease, breast cancer and previous amputation of the toes. PAST SURGICAL HISTORY: Gallbladder surgery, had a bypass to the right leg, bypass to the left leg, amputation of the toes on the right fourth and fifth toe and last admission, last month, she had amputation of the left fifth toe. She had a left mastectomy for breast cancer. ALLERGIES: No known drug allergies. MEDICATIONS: She is on vitamin D, calcium, Artificial Tears, Tylenol, amitriptyline 10 mg daily, anastrozole 1 mg daily, aspirin 81 mg daily, Plavix 75 mg daily, Pepcid 40 mg daily, fenofibrate 140 mg daily, iron daily, insulin 7 units 3 times daily, NovoLog 15 units three times daily, Lantus 30 units at bedtime, levothyroxine 25 mcg daily, Tradjenta 5 mg daily, lisinopril 2.5 daily, loratadine 10 mg daily, meclizine p.r.n., metformin 1000 mg daily, niacin 500 mg daily, Lyrica 50 mg twice a day, Travatan eyedrops daily. SOCIAL HISTORY: No history of smoking, alcohol or drug abuse. Lives with her daughter, walks with a walker. FAMILY HISTORY: Positive for diabetes, hypertension, heart disease. REVIEW OF SYSTEMS: CARDIAC: No chest pain. Has fever and chills. GASTROINTESTINAL: She also has diarrhea. NEUROLOGICAL: No weakness. Rest of the 14-system was reviewed and negative. PHYSICAL EXAMINATION: VITAL SIGNS: At the time of admission, 101 went up to 103, pulse 91, respirations 18, blood pressure 102/42 and 91% on room air. HEENT: Head is atraumatic. Pupils equal. Oral cavity: Dentures. NECK: Supple. Thyroid not enlarged, JVD not elevated. CHEST: Left mastectomy. CARDIOVASCULAR: S1, S2. LUNGS: Clear to auscultation. ABDOMEN: Soft. Bowel sounds present, no mass palpable, slight tender to deep palpation. No rebound. EXTERNAL GENITALIA: No Simpson. RECTAL: Deferred. EXTREMITIES: The patient had a bypass to the right leg, had a previous amputation of the right fourth and fifth toes. No open sores on the right foot. Left foot, she had a previous bypass to the left leg, pulses and patient had amputation of the left fifth toe recently as there was open wound, where she had that amputation done and is open to heal and some good granulation tissue. NEUROLOGIC: Cranial nerves intact. No focal deficit noted. LABORATORY DATA: Shows white count of 20,000, hemoglobin 9.1, platelets 202. Electrolytes show sodium 136, potassium 3.5, chloride 102, bicarbonate 24, BUN 32, creatinine 1.1, and glucose 80. LFTs were normal. Albumin 2.7. Influenza test A and B antigen was negative. Chest x-ray was negative. EKG not done. FINAL IMPRESSION: 1. Febrile illness, temperature of 103. 2. Possible sepsis, could be line infection. The patient has a PICC line in the right arm, could be Clostridium difficile colitis. 3. Diabetes, insulin dependent. 4. Hypothyroidism. 5. Peripheral vascular disease, bypass to both lower extremities. 6. Recent amputation of the left fifth toe for osteomyelitis, has open wound to heal. 7. Breast carcinoma, left mastectomy. 8. Anemia of chronic disease. 9. Protein-calorie malnutrition, mild to moderate. PLAN: At this time, was admitted to the hospital. Blood cultures, urine cultures, stool for C. diff, was given dose of vancomycin and Zosyn. ID is consulted. Wound care nurse is constant. We will have vascular consult and see how the patient's condition improves. Also if C. diff is positive, we will add vancomycin. I spoke with the family and Infectious Disease. JAMES CORCORAN MD DR: ADRIANA/liang JOB#: [id number] / [id number]
[2016-08-04] MEDS ORDERED: NOREPINEPHRINE VIAL 8 MG in IV NORMAL SALINE 250ML 250 ML IV PRN (15:00)
[2016-08-04] MEDS ORDERED: MAGNESIUM SULFATE 4GM 100 ML IV ONE (15:00)
[2016-08-04] MEDS: FUROSEMIDE 40 MG/4 ML VIAL IVP SCH (15:00)
[2016-08-04] MEDS: POTASSIUM CHLORIDE 10MEQ 100 ML IV SCH ×2 (15:08→18:06)
[2016-08-04] MEDS: silver sulfADIAZINE 1% CREAM 25GM TUBE. TP SCH (15:09)
[2016-08-04] MEDS: PIPERACILLIN/TAZOBACTAM 3.375 GM in IV NORMAL SALINE 50ML 50 ML IV SCH ×2 (15:10→19:41)
[2016-08-04 16:13] LABS: PLT ESTIMATE ADEQUATE (ADEQUATE); POIKILOCYTOSIS SLIGHT; TOXIC GRANULATION PRESENT; TOXIC VACUOLATION PRESENT
[2016-08-04 16:14] LABS: BURR CELLS OCC; OVALOCYTES FEW; SCHISTOCYTES OCC
--- NOTE | 2016-08-04 16:15 | CARD ---
APPROVED REPORT EXAM: Two-dimensional and M-mode echocardiogram with Doppler and color Doppler. Other Information Quality : GoodHR: 94bpm Rhythm : NSR INDICATION NSTEMI 2D DIMENSIONS RVDd3.4 (2.9-3.5cm)Left Atrium(2D)3.5 (1.6-4.0cm) IVSd0.9 (0.7-1.1cm)Aortic Root(2D)3.0 (2.0-3.7cm) LVDd4.3 (3.9-5.9cm)LVOT Diameter2.3 (1.8-2.4cm) PWd0.9 (0.7-1.1cm)LVDs3.3 (2.5-4.0cm) FS (%) 22.0 %SV36.5 ml LVEF(%)44.8 (>50%) Aortic Valve AoV Peak Jacobo.162.9cm/sAoV VTI28.9cm AO Peak GR.10.6mmHgLVOT Peak Jacobo.88.9cm/s AO Mean GR.6mmHgAVA (VMAX)2.17cm2 Mitral Valve MV E Ducrlltg70.3cm/sMV E Peak Gr.4mmHg MV DECEL [id number] A Zlngzxgu80.2cm/s MV E Mean Gr.2mmHgE/A Ratio0.8 MV A [id number] Pulmonary Valve PV Peak Tujzpnfp09.8cm/s Tricuspid Valve TR P. [id number]/sTR Peak Gr.21mmHg LEFT VENTRICLE The left ventricle is normal size. There is normal left ventricular wall thickness. Left ventricle sy stolic function is mildly impaired. The Ejection Fraction is 40-45%. There is global hypokinesis of t he left ventricle. Transmitral Doppler flow pattern is Grade I-abnormal relaxation pattern. RIGHT VENTRICLE The right ventricle is normal size. There is normal right ventricular wall thickness. The right ventr icular systolic function is normal. ATRIA The left atrium size is normal. The right atrium size is normal. The interatrial septum is intact wit h no evidence for an atrial septal defect or patent foramen ovale as noted on 2-D or Doppler imaging. AORTIC VALVE The aortic valve is moderately sclerotic. Doppler and Color Flow revealed no significant aortic regur gitation. There is no significant aortic valvular stenosis. MITRAL VALVE Mitral annular calcification is mild. There is no evidence of mitral valve prolapse. There is no mitr al valve stenosis. Doppler and Color Flow revealed mild mitral regurgitation. TRICUSPID VALVE Doppler and Color Flow revealed mild tricuspid regurgitation. The pulmonary artery systolic pressure is estimated at 33 mmHg. There is mild pulmonary hypertension. PULMONIC VALVE The pulmonary valve is normal in structure and function. Doppler and Color Flow revealed no pulmonic valvular regurgitation. There is no pulmonic valvular stenosis. GREAT VESSELS The aortic root is normal in size. The ascending aorta is normal in size. The pulmonary artery is nor mal. The IVC is normal in size and collapses >50% with inspiration. PERICARDIAL EFFUSION There is no evidence of significant pericardial effusion. Critical Notification Critical Value: No <Conclusion> Left ventricle systolic function is mildly impaired. The Ejection Fraction is 40-45%. Transmitral Doppler flow pattern is Grade I-abnormal relaxation pattern. Mild mitral regurgitation. Mild tricuspid regurgitation. The pulmonary artery systolic pressure is estimated at 33 mmHg. There is mild pulmonary hypertension. There is no evidence of significant pericardial effusion.
[2016-08-04 17:36] LABS: PCO2 ABG 27 mmHg (35-46); PH ABG 7.31 (7.35-7.45); PO2 ABG 79 mmHg (65-108)
[2016-08-04 17:37] LABS: FIO2 ABG 36; HCO3 ABG 13 mmol/L (21-28); SAT O2 ABG 94 % (92-99)
[2016-08-04] MEDS ORDERED: INSULIN DETEMIR 300 UNITS/3 ML INSULN.PEN. SQ SCH (18:00)
[2016-08-04] MEDS: INSULIN DETEMIR 300 UNITS/3 ML INSULN.PEN. SQ SCH (18:14)
[2016-08-04] MEDS: SODIUM BICARBONATE VIAL 75 MEQ in IV 1/2 NORMAL SALINE 1,000 ML IV SCH (19:52)
[2016-08-04] MEDS: AMITRIPTYLINE HCL 25 MG TABLET PO SCH (21:09)
[2016-08-04 21:29] LABS: BILIRUBIN,URINE NEGATIVE (NEG); GLUCOSE,URINE 500 mg/dL (NEG); NITRITE,URINE NEGATIVE (NEG); PH,URINE 5.5; PROTEIN,URINE 30 mg/dL (NEG-TRACE); UROBILINOGEN,URINE 0.2 mg/dL (0.2 mg/dL)
--- NOTE | 2016-08-04 21:30 | RAD ---
PROCEDURE Renal ultrasound. HISTORY Sepsis, fever. TECHNIQUE Real-time trejo scale imaging of the kidneys is performed and images were obtained. COMPARISON None available FINDINGS The right kidney measures 11.0 x 5.2 x 5.1 centimeter and the left kidney measures 12.4 x 4.2 x 4.6 centimeter. Mild bilateral renal cortical thinning is noted. There is no hydronephrosis or nephrolithiasis. Small bilateral pleural effusions. The urinary bladder is decompressed. IMPRESSION Mild renal cortical thinning. This is a nonspecific finding and may be related to chronic changes Small bilateral pleural effusions. Electronically signed by: Kaia Vivar MD (Aug 04, 2016 21:28:06)
[2016-08-04 21:37] LABS: BACTERIA,URINE MODERATE /HPF (0-FEW); RBC,URINE 20-40 /HPF (0-2); SQUAMOUS EPITHELIAL CELL,UR FEW /LPF; WBC,URINE TNTC /HPF (0-4); YEAST,URINE PRESENT /HPF
[2016-08-04] MEDS: ACETYLCYSTEINE 20% ORAL SOLN 600 MG/3 ML SYRINGE. PO SCH (22:18)
--- NOTE | 2016-08-04 22:50 | PHYS DOC ---
Past Medical History Past Medical History: Arthritis, Cancer, Constipation, Depression, Diabetes- Type II, Glaucoma, Hypertension, Hypothyroid, Other Additional Past Medical Histor: vertigo Past Surgical History: Cholecystectomy, Other Additional Past Surgical Histo: l mastectomy, amputation l grt toe and l 2nd toe, right leg bypass Alcohol Use: None Drug Use: None Adult General Chief Complaint Chief Complaint: FEVER HPI HPI [ 86-year-old female with a complicated history over the last month or so. She is had osteomyelitis of the left big toe where she underwent amputation of the toe. She was sent to the healthcare [facility] in [place] with a PICC line to continue IV antibiotics. She did have some diarrhea yesterday but is not had any in the last 24 hours. Patient had temperature of 103 at home. Review of Systems Review of Systems Constitutional: Denies fever or chills [] Eyes: Denies change in visual acuity, redness, or eye pain [] HENT: Denies nasal congestion or sore throat [] Respiratory: Denies cough or shortness of breath [] Cardiovascular: No additional information not addressed in HPI [] GI: Denies abdominal pain, nausea, vomiting, bloody stools or diarrhea [] : Denies dysuria or hematuria [] Musculoskeletal: Denies back pain or joint pain [] Integument: Denies rash or skin lesions [] Neurologic: Denies headache, focal weakness or sensory changes [] Endocrine: Denies polyuria or polydipsia [] Current Medications Current Medications Current Medications Medications (Trade) Dose Ordered Sig/Kyle Start Time Stop Time Status Last Admin Dose Admin Acetaminophen 1000 mg 1,000 mg 1X ONCE 08/03/16 20:00 08/03/16 20:01 DC 08/03/16 20:02 1,000 MG Ceftriaxone Sodium (Rocephin 1gm Ivpb For Omni) 50 ml @ 100 mls/hr 1X ONCE 08/03/16 21:00 08/03/16 21:29 DC 08/03/16 22:07 100 MLS/HR Sodium Chloride 1,000 ml @ 1,000 mls/hr 1X ONCE 08/03/16 20:00 08/03/16 20:59 DC 08/03/16 20:02 1,000 MLS/HR Allergies Allergies Allergies Coded Allergies Type Severity Reaction Last Updated Verified No Known Drug Allergies 04/29/14 No Physical Exam Physical Exam Constitutional: Well developed, well nourished, no acute distress, non-toxic appearance. [] HENT: Normocephalic, atraumatic, bilateral external ears normal, oropharynx moist, no oral exudates, nose normal. [] Eyes: PERRLA, EOMI, conjunctiva normal, no discharge. [] Neck: Normal range of motion, no tenderness, supple, no stridor. [] Cardiovascular:Heart rate regular rhythm, no murmur [] Lungs & Thorax: Bilateral breath sounds clear to auscultation [] Abdomen: Bowel sounds normal, soft, no tenderness, no masses, no pulsatile masses. [] Skin: Warm, dry, no erythema, no rash. [] Back: No tenderness, no CVA tenderness. [] Extremities: Amputated left big toe. [] Neurologic: Alert and oriented X 3, normal motor function, normal sensory function, no focal deficits noted. [] Psychologic: Affect normal, judgement normal, mood normal. [] Current Patient Data Vital Signs Vital Signs Date Time Temp Pulse Resp B/P Pulse Ox O2 Delivery O2 Flow Rate FiO2 08/03/16 19:21 103 94 16 148/65 93 Room Air 103.0 Lab Values Laboratory Tests Test 08/03/16 19:35 08/03/16 19:50 08/03/16 20:09 White Blood Count 20.2x10^3/uL (4.0-11.0) H Red Blood Count 3.39x10^6/uL (3.50-5.40) L Hemoglobin 9.1g/dL (12.0-15.5) L Hematocrit 28.1% (36.0-47.0) L Mean Corpuscular Volume 83fL (79-100) Mean Corpuscular Hemoglobin 27pg (25-35) Mean Corpuscular Hemoglobin Concent 33g/dL (31-37) Red Cell Distribution Width 15.5% (11.5-14.5) H Platelet Count 202x10^3/uL (140-400) Neutrophils (%) (Auto) 92% (31-73) H Lymphocytes (%) (Auto) 3% (24-48) L Monocytes (%) (Auto) 4% (0-9) Eosinophils (%) (Auto) 0% (0-3) Basophils (%) (Auto) 0% (0-3) Neutrophils # (Auto) 18.6x10^3uL (1.8-7.7) H Lymphocytes # (Auto) 0.6x10^3/uL (1.0-4.8) L Monocytes # (Auto) 0.9x10^3/uL (0.0-1.1) Eosinophils # (Auto) 0.0x10^3/uL (0.0-0.7) Basophils # (Auto) 0.1x10^3/uL (0.0-0.2) Segmented Neutrophils % 81% (35-66) H Band Neutrophils % 15% (0-9) H Lymphocytes % 4% (24-48) L Toxic Granulation Slight Platelet Estimate Adequate (ADEQUATE) Hypochromasia Slight Anisocytosis Slight Sodium Level 136mmol/L (136-145) Potassium Level 3.5mmol/L (3.5-5.1) Chloride Level 102mmol/L (98-107) Carbon Dioxide Level 24mmol/L (21-32) Anion Gap 10 (6-14) Blood Urea Nitrogen 32mg/dL (7-20) H Creatinine 1.1mg/dL (0.6-1.0) H Estimated GFR (Cockcroft-Gault) 47.3 BUN/Creatinine Ratio 29 (6-20) H Glucose Level 80mg/dL (70-99) Lactic Acid Level 1.4mmol/L (0.4-2.0) Calcium Level 8.8mg/dL (8.5-10.1) Total Bilirubin 0.3mg/dL (0.2-1.0) Aspartate Amino Transferase (AST) 17U/L (15-37) Alanine Aminotransferase (ALT) 13U/L (14-59) L Alkaline Phosphatase 81U/L (46-116) Total Protein 7.0g/dL (6.4-8.2) Albumin 2.7g/dL (3.4-5.0) L Albumin/Globulin Ratio 0.6 (1.0-1.7) L Glucose (Fingerstick) 85mg/dL (70-99) Influenza Type A Antigen Negative (NEGATIVE) Influenza Type B Antigen Negative (NEGATIVE) Laboratory Tests 08/03/16 19:35 Laboratory Tests 08/03/16 19:35 Microbiology 08/03/16 Blood Culture - Preliminary, Resulted NO GROWTH AFTER 1 DAY EKG EKG [] Radiology/Procedures Radiology/Procedures [] Impressions: PROCEDURE: CHEST AP ONLY Indication: Fever today. Hypertension. Technique: Upright portable chest radiograph was obtained. Comparison is from July 10, 2015. Findings: There is minimal basilar atelectasis or less likely infiltrate. Upper lung spann are clear. The heart is not enlarged. The pulmonary vasculature may be mildly cephalized. Right PICC line is noted. There are degenerative changes in the shoulders. Impression: 1. Mild basilar atelectasis and/or infiltrate. 2. Mild vascular congestion also suspected. Course & Med Decision Making Course & Med Decision Making Pertinent Labs and Imaging studies reviewed. (See chart for details) [ED course: Evaluation reveals an 86-year-old female who has any number of reasons to have fever. Today however it appears that a urinary tract infection as a culprit. She was given IV fluids and a gram or Rocephin during her stay in the emergency department. She does meet sepsis criteria. I will admit the patient to Dr. leon for further evaluation and treatment. We will consult infectious disease.] Dragon Disclaimer Dragon Disclaimer This electronic medical record was generated, in whole or in part, using a voice recognition dictation system. Departure Departure Impression: Primary Impression: Sepsis Additional Impression: Urinary tract infection Disposition: ADMITTED INPATIENT Admitting Physician: Jackie Mcdonough Condition: STABLE Problem Qualifiers Primary Impression: Sepsis Sepsis type: sepsis due to unspecified organism Qualified Code: A41.9 - Sepsis, unspecified organism Additional Impression: Urinary tract infection Urinary tract infection type: site unspecified Hematuria presence: without hematuria Qualified Code: N39.0 - Urinary tract infection, site not specified AUSTIN ARZATE DO Aug 04, 2016 22:50
[2016-08-05] VITALS (25 sets, daily range): BP systolic 87–143; BP diastolic 42–74
[2016-08-05] MEDS: PIPERACILLIN/TAZOBACTAM 3.375 GM in IV NORMAL SALINE 50ML 50 ML IV SCH ×5 (01:09→23:44)
[2016-08-05] MEDS: SODIUM BICARBONATE VIAL 75 MEQ in IV 1/2 NORMAL SALINE 1,000 ML IV SCH ×2 (04:45→15:30)
[2016-08-05 06:46] LABS: BASO # 0.1 x10^3/uL (0.0-0.2); BASO % 0 % (0-3); EOS % 2 % (0-3); HEMATOCRIT 23.4 % (36.0-47.0); HEMOGLOBIN 7.8 g/dL (12.0-15.5); LYMPH # 0.6 x10^3/uL (1.0-4.8); LYMPH % 5 % (24-48); MEAN CORPUSCULAR HEMOGLOBIN 27 pg (25-35); MEAN CORPUSCULAR HGB CONC 33 g/dL (31-37); MEAN CORPUSCULAR VOLUME 82 fL (79-100); MONO % 4 % (0-9); NEUT % 89 % (31-73); PLATELET COUNT 173 x10^3/uL (140-400); RED BLOOD COUNT 2.87 x10^6/uL (3.50-5.40); RED CELL DISTRIBUTION WIDTH 15.8 % (11.5-14.5); WHITE BLOOD COUNT 12.9 x10^3/uL (4.0-11.0)
[2016-08-05 06:48] LABS: CALCIUM 7.5 mg/dL (8.5-10.1); CREATININE 1.6 mg/dL (0.6-1.0); GFR 30.7
--- NOTE | 2016-08-05 07:48 | PDOC ---
Infectious Disease Note Subjective Subjective pt is hypotensive on vasopressors in ICU Elevated troponin 4 liquid stool ROS ROS GEN: Denies fevers, chills, sweats HEENT: Denies blurred vision, sore throat CV: Denies chest pain RESP: Denies shortness of air, cough GI: Denies n/v/ NEURO: Denies confusion, dizziness MSK: Denies weakness, joint pain/swelling Vital Sign Vital Signs Vital Signs Date Time Temp Pulse Resp B/P Pulse Ox O2 Delivery O2 Flow Rate FiO2 08/05/16 06:00 78 16 98/48 100 Nasal Cannula 4.0 08/05/16 04:00 98.2 98.2 Physical Exam PHYSICAL EXAM GENERAL: NAD, Alert HEENT: PERRL, OC/OP NECK: Supple, no JVD, no LN LUNGS: Clear HEART: S1S2, no gallop, no murmur ABD: Soft, NT, no organomegaly, no rebound EXT: No edema, no cyanosis GLAZIER STRUCTURAL GLASS: Alert, oriented x 3, no focal neurologic deficit SKIN: No rash IV: ok Labs Lab Laboratory Tests Test 08/04/16 09:35 08/04/16 12:33 08/04/16 12:45 08/04/16 15:22 Troponin I Quantitative 1.413ng/mL (0.000-0.055) 2.380ng/mL (0.000-0.055) O2 Saturation 91% (92-99) Arterial Blood pH 7.40 (7.35-7.45) Arterial Blood pCO2 at Patient Temp 22mmHg (35-46) Arterial Blood pO2 at Patient Temp 63mmHg (65-108) Arterial Blood HCO3 13mmol/L (21-28) Arterial Blood Base Excess -10mmol/L (-3-3) FiO2 32 White Blood Count 5.8x10^3/uL (4.0-11.0) Red Blood Count 3.21x10^6/uL (3.50-5.40) Hemoglobin 8.9g/dL (12.0-15.5) Hematocrit 26.8% (36.0-47.0) Mean Corpuscular Volume 84fL (79-100) Mean Corpuscular Hemoglobin 28pg (25-35) Mean Corpuscular Hemoglobin Concent 33g/dL (31-37) Red Cell Distribution Width 15.6% (11.5-14.5) Platelet Count 170x10^3/uL (140-400) Neutrophils (%) (Auto) 94% (31-73) Lymphocytes (%) (Auto) 4% (24-48) Monocytes (%) (Auto) 1% (0-9) Eosinophils (%) (Auto) 0% (0-3) Basophils (%) (Auto) 0% (0-3) Neutrophils # (Auto) 5.5x10^3uL (1.8-7.7) Lymphocytes # (Auto) 0.2x10^3/uL (1.0-4.8) Monocytes # (Auto) 0.1x10^3/uL (0.0-1.1) Eosinophils # (Auto) 0.0x10^3/uL (0.0-0.7) Basophils # (Auto) 0.0x10^3/uL (0.0-0.2) Segmented Neutrophils % 22% (35-66) Band Neutrophils % 70% (0-9) Lymphocytes % 5% (24-48) Monocytes % 1% (0-10) Metamyelocytes % 2% (0-0) Toxic Granulation Present Toxic Vacuolation Present Dohle Bodies Present Platelet Estimate Adequate (ADEQUATE) Poikilocytosis Slight Ovalocytes Few [place] Cells Occ Schistocytes Occ Sodium Level 133mmol/L (136-145) Potassium Level 3.5mmol/L (3.5-5.1) Chloride Level 103mmol/L (98-107) Carbon Dioxide Level 15mmol/L (21-32) Anion Gap 15 (6-14) Blood Urea Nitrogen 34mg/dL (7-20) Creatinine 1.5mg/dL (0.6-1.0) Estimated GFR (Cockcroft-Gault) 33.1 Glucose Level 378mg/dL (70-99) Lactic Acid Level 4.1mmol/L (0.4-2.0) Calcium Level 8.1mg/dL (8.5-10.1) Magnesium Level 1.4mg/dL (1.8-2.4) Creatine Kinase 733U/L (26-192) Creatine Kinase MB (Mass) 5.8ng/mL (0.0-3.6) Creatine Kinase MB Relative Index 0.8% (0-4) Triglycerides Level 176mg/dL (0-150) Cholesterol Level 158mg/dL (0-200) LDL Cholesterol, Calculated 80mg/dL (0-100) VLDL Cholesterol, Calculated 35mg/dL (0-40) HDL Cholesterol 43mg/dL (40-60) Cholesterol/HDL Ratio 3.7 Thyroid Stimulating Hormone (TSH) 0.955uIU/mL (0.358-3.74) Test 08/04/16 17:00 08/04/16 17:30 08/04/16 18:09 08/04/16 21:15 O2 Saturation 94% (92-99) Arterial Blood pH 7.31 (7.35-7.45) Arterial Blood pCO2 at Patient Temp 27mmHg (35-46) Arterial Blood pO2 at Patient Temp 79mmHg (65-108) Arterial Blood HCO3 13mmol/L (21-28) Arterial Blood Base Excess -12mmol/L (-3-3) FiO2 36 Lactic Acid Level 2.2mmol/L (0.4-2.0) Glucose (Fingerstick) 388mg/dL (70-99) Urine Collection Type Unknown Urine Color Yellow Urine Clarity Cloudy Urine pH 5.5 Urine Specific Gregory 1.010 Urine Protein 30mg/dL (NEG-TRACE) Urine Glucose (UA) 500mg/dL (NEG) Urine Ketones (Stick) Negativemg/dL (NEG) Urine Blood Large (NEG) Urine Nitrite Negative (NEG) Urine Bilirubin Negative (NEG) Urine Urobilinogen Dipstick 0.2mg/dL (0.2 mg/dL) Urine Leukocyte Esterase Large (NEG) Urine RBC 20-40/HPF (0-2) Urine WBC Tntc/HPF (0-4) Urine Squamous Epithelial Cells Few/LPF Urine Amorphous Sediment Present/HPF Urine Bacteria Moderate/HPF (0-FEW) Urine Granular Casts Occasional/HPF Urine Mucus Slight/LPF Urine Yeast Present/HPF Test 08/04/16 22:32 08/04/16 23:40 08/05/16 06:10 Glucose (Fingerstick) 445mg/dL (70-99) Heparin Anti-Xa Act, Unfractionated 0.27IU/mL (0.30-0.70) 0.29IU/mL (0.30-0.70) Troponin I Quantitative 9.002ng/mL (0.000-0.055) 9.265ng/mL (0.000-0.055) White Blood Count 12.9x10^3/uL (4.0-11.0) Red Blood Count 2.87x10^6/uL (3.50-5.40) Hemoglobin 7.8g/dL (12.0-15.5) Hematocrit 23.4% (36.0-47.0) Mean Corpuscular Volume 82fL (79-100) Mean Corpuscular Hemoglobin 27pg (25-35) Mean Corpuscular Hemoglobin Concent 33g/dL (31-37) Red Cell Distribution Width 15.8% (11.5-14.5) Platelet Count 173x10^3/uL (140-400) Neutrophils (%) (Auto) 89% (31-73) Lymphocytes (%) (Auto) 5% (24-48) Monocytes (%) (Auto) 4% (0-9) Eosinophils (%) (Auto) 2% (0-3) Basophils (%) (Auto) 0% (0-3) Neutrophils # (Auto) 11.5x10^3uL (1.8-7.7) Lymphocytes # (Auto) 0.6x10^3/uL (1.0-4.8) Monocytes # (Auto) 0.5x10^3/uL (0.0-1.1) Eosinophils # (Auto) 0.2x10^3/uL (0.0-0.7) Basophils # (Auto) 0.1x10^3/uL (0.0-0.2) Sodium Level 135mmol/L (136-145) Potassium Level 3.0mmol/L (3.5-5.1) Chloride Level 105mmol/L (98-107) Carbon Dioxide Level 20mmol/L (21-32) Anion Gap 10 (6-14) Blood Urea Nitrogen 35mg/dL (7-20) Creatinine 1.6mg/dL (0.6-1.0) Estimated GFR (Cockcroft-Gault) 30.7 Glucose Level 422mg/dL (70-99) Lactic Acid Level 1.0mmol/L (0.4-2.0) Calcium Level 7.5mg/dL (8.5-10.1) Objective Assessment Fever Leukocytosis Left foot wound /osteo DM C diff Plan Plan of Care po vanc d/c iv vanc and fluconazole d/w dr Mcdonough d/w daughter supportive care JOHANA MALDONADO MD Aug 05, 2016 07:48
[2016-08-05 08:40] LABS: % EOS 7 % (0-5); PLT ESTIMATE ADEQUATE (ADEQUATE)
[2016-08-05] MEDS: POTASSIUM CHLORIDE 20MEQ 50 ML IV SCH ×2 (09:00→10:00)
--- NOTE | 2016-08-05 09:11 | PDOC ---
PROGRESS NOTES Subjective Subjective pt had rapid response yesterday, sob and hypotension ,transferred to icu, elevated troponin non stemi Objective Objective Vital Signs Date Time Temp Pulse Resp B/P Pulse Ox O2 Delivery O2 Flow Rate FiO2 08/05/16 06:00 78 16 98/48 100 Nasal Cannula 4.0 08/05/16 04:00 98.2 98.2 Intake and Output 08/05/16 07:00 Intake Total 4106 ml Output Total 1165 ml Balance 2941 ml Intake Oral 280 ml IV Total 3786 ml Other 40 ml Output Urine Total 1165 ml # Bowel Movements 7 Physical Exam Abdomen: Soft, No tenderness Heart: Regular rate, Normal S1, Normal S2, Other (palpable femoral pulses bilaterally) General: Alert HEENT: Atraumatic, Mucous membr. moist/pink Lungs: Other (diffuse crackles with faint wheeze) MUSCULOSKELETAL: Osteoarthritic changes both hands Neuro: Normal speech, Sensation intact Psych/Mental Status: Mood NL Skin: Other (left fifth toe open amputation with some areas of fibrin and dusky tissue, foot warm, unable to palpate DP pulse) Diagnosis Problem List Problems Medical Problems: (1) NSTEMI (non-ST elevated myocardial infarction) Status: Acute (2) Sepsis Status: Acute (3) Urinary tract infection Status: Acute Assessment Assessment Problems Medical Problems: (1) NSTEMI (non-ST elevated myocardial infarction) Status: Acute (2) Sepsis Status: Acute (3) Urinary tract infection Status: Acute FINAL IMPRESSION: Acute SC -non Stemi. hypotension. C diff colitis 1. Febrile illness, temperature of 103. 2. Sepsis, could be line infection. The patient has a PICC line in the right arm, could be Clostridium difficile colitis. 3. Diabetes, insulin dependent. 4. Hypothyroidism. 5. Peripheral vascular disease, bypass to both lower extremities. 6. Recent amputation of the left fifth toe for osteomyelitis, has open wound to heal. 7. Breast carcinoma, left mastectomy. 8. Anemia of chronic disease. 9. Protein-calorie malnutrition, mild to moderate. PLAN: troponin elevated to 9.0 on heparin drip. cardiac cath once stable Levophed for hypotension. Oral avnco for c diff Zosyn for uti pot 3.0 replace cr 1.8. At this time, was admitted to the hospital. Blood cultures, urine cultures, stool for C. diff, was given dose of vancomycin and Zosyn. ID is consulted. Wound care nurse is constant. We will have vascular consult and see how the patient's condition improves. Also if C. diff is positive, we will add vancomycin. I spoke with the family and Infectious Disease. Problems: Plan Plan of Care Problems Medical Problems: (1) NSTEMI (non-ST elevated myocardial infarction) Status: Acute (2) Sepsis Status: Acute (3) Urinary tract infection Status: Acute Comment Review of Relevant I have reviewed the following items kathleen (where applicable) has been applied. Labs Laboratory Tests Test 08/04/16 09:35 08/04/16 12:33 08/04/16 12:45 08/04/16 15:22 Troponin I Quantitative 1.413ng/mL (0.000-0.055) 2.380ng/mL (0.000-0.055) O2 Saturation 91% (92-99) Arterial Blood pH 7.40 (7.35-7.45) Arterial Blood pCO2 at Patient Temp 22mmHg (35-46) Arterial Blood pO2 at Patient Temp 63mmHg (65-108) Arterial Blood HCO3 13mmol/L (21-28) Arterial Blood Base Excess -10mmol/L (-3-3) FiO2 32 White Blood Count 5.8x10^3/uL (4.0-11.0) Red Blood Count 3.21x10^6/uL (3.50-5.40) Hemoglobin 8.9g/dL (12.0-15.5) Hematocrit 26.8% (36.0-47.0) Mean Corpuscular Volume 84fL (79-100) Mean Corpuscular Hemoglobin 28pg (25-35) Mean Corpuscular Hemoglobin Concent 33g/dL (31-37) Red Cell Distribution Width 15.6% (11.5-14.5) Platelet Count 170x10^3/uL (140-400) Neutrophils (%) (Auto) 94% (31-73) Lymphocytes (%) (Auto) 4% (24-48) Monocytes (%) (Auto) 1% (0-9) Eosinophils (%) (Auto) 0% (0-3) Basophils (%) (Auto) 0% (0-3) Neutrophils # (Auto) 5.5x10^3uL (1.8-7.7) Lymphocytes # (Auto) 0.2x10^3/uL (1.0-4.8) Monocytes # (Auto) 0.1x10^3/uL (0.0-1.1) Eosinophils # (Auto) 0.0x10^3/uL (0.0-0.7) Basophils # (Auto) 0.0x10^3/uL (0.0-0.2) Segmented Neutrophils % 22% (35-66) Band Neutrophils % 70% (0-9) Lymphocytes % 5% (24-48) Monocytes % 1% (0-10) Metamyelocytes % 2% (0-0) Toxic Granulation Present Toxic Vacuolation Present Dohle Bodies Present Platelet Estimate Adequate (ADEQUATE) Poikilocytosis Slight Ovalocytes Few Matthew Cells Occ Schistocytes Occ Sodium Level 133mmol/L (136-145) Potassium Level 3.5mmol/L (3.5-5.1) Chloride Level 103mmol/L (98-107) Carbon Dioxide Level 15mmol/L (21-32) Anion Gap 15 (6-14) Blood Urea Nitrogen 34mg/dL (7-20) Creatinine 1.5mg/dL (0.6-1.0) Estimated GFR (Cockcroft-Gault) 33.1 Glucose Level 378mg/dL (70-99) Lactic Acid Level 4.1mmol/L (0.4-2.0) Calcium Level 8.1mg/dL (8.5-10.1) Magnesium Level 1.4mg/dL (1.8-2.4) Creatine Kinase 733U/L (26-192) Creatine Kinase MB (Mass) 5.8ng/mL (0.0-3.6) Creatine Kinase MB Relative Index 0.8% (0-4) Triglycerides Level 176mg/dL (0-150) Cholesterol Level 158mg/dL (0-200) LDL Cholesterol, Calculated 80mg/dL (0-100) VLDL Cholesterol, Calculated 35mg/dL (0-40) HDL Cholesterol 43mg/dL (40-60) Cholesterol/HDL Ratio 3.7 Thyroid Stimulating Hormone (TSH) 0.955uIU/mL (0.358-3.74) Test 08/04/16 17:00 08/04/16 17:30 08/04/16 18:09 08/04/16 21:15 O2 Saturation 94% (92-99) Arterial Blood pH 7.31 (7.35-7.45) Arterial Blood pCO2 at Patient Temp 27mmHg (35-46) Arterial Blood pO2 at Patient Temp 79mmHg (65-108) Arterial Blood HCO3 13mmol/L (21-28) Arterial Blood Base Excess -12mmol/L (-3-3) FiO2 36 Lactic Acid Level 2.2mmol/L (0.4-2.0) Glucose (Fingerstick) 388mg/dL (70-99) Urine Collection Type Unknown Urine Color Yellow Urine Clarity Cloudy Urine pH 5.5 Urine Specific [place] 1.010 Urine Protein 30mg/dL (NEG-TRACE) Urine Glucose (UA) 500mg/dL (NEG) Urine Ketones (Stick) Negativemg/dL (NEG) Urine Blood Large (NEG) Urine Nitrite Negative (NEG) Urine Bilirubin Negative (NEG) Urine Urobilinogen Dipstick 0.2mg/dL (0.2 mg/dL) Urine Leukocyte Esterase Large (NEG) Urine RBC 20-40/HPF (0-2) Urine WBC Tntc/HPF (0-4) Urine Squamous Epithelial Cells Few/LPF Urine Amorphous Sediment Present/HPF Urine Bacteria Moderate/HPF (0-FEW) Urine Granular Casts Occasional/HPF Urine Mucus Slight/LPF Urine Yeast Present/HPF Test 08/04/16 22:32 08/04/16 23:40 08/05/16 06:10 08/05/16 08:37 Glucose (Fingerstick) 445mg/dL (70-99) 351mg/dL (70-99) Heparin Anti-Xa Act, Unfractionated 0.27IU/mL (0.30-0.70) 0.29IU/mL (0.30-0.70) Troponin I Quantitative 9.002ng/mL (0.000-0.055) 9.265ng/mL (0.000-0.055) White Blood Count 12.9x10^3/uL (4.0-11.0) Red Blood Count 2.87x10^6/uL (3.50-5.40) Hemoglobin 7.8g/dL (12.0-15.5) Hematocrit 23.4% (36.0-47.0) Mean Corpuscular Volume 82fL (79-100) Mean Corpuscular Hemoglobin 27pg (25-35) Mean Corpuscular Hemoglobin Concent 33g/dL (31-37) Red Cell Distribution Width 15.8% (11.5-14.5) Platelet Count 173x10^3/uL (140-400) Neutrophils (%) (Auto) 89% (31-73) Lymphocytes (%) (Auto) 5% (24-48) Monocytes (%) (Auto) 4% (0-9) Eosinophils (%) (Auto) 2% (0-3) Basophils (%) (Auto) 0% (0-3) Neutrophils # (Auto) 11.5x10^3uL (1.8-7.7) Lymphocytes # (Auto) 0.6x10^3/uL (1.0-4.8) Monocytes # (Auto) 0.5x10^3/uL (0.0-1.1) Eosinophils # (Auto) 0.2x10^3/uL (0.0-0.7) Basophils # (Auto) 0.1x10^3/uL (0.0-0.2) Segmented Neutrophils % 37% (35-66) Band Neutrophils % 53% (0-9) Lymphocytes % 3% (24-48) Eosinophils % 7% (0-5) Platelet Estimate Adequate (ADEQUATE) Sodium Level 135mmol/L (136-145) Potassium Level 3.0mmol/L (3.5-5.1) Chloride Level 105mmol/L (98-107) Carbon Dioxide Level 20mmol/L (21-32) Anion Gap 10 (6-14) Blood Urea Nitrogen 35mg/dL (7-20) Creatinine 1.6mg/dL (0.6-1.0) Estimated GFR (Cockcroft-Gault) 30.7 Glucose Level 422mg/dL (70-99) Lactic Acid Level 1.0mmol/L (0.4-2.0) Calcium Level 7.5mg/dL (8.5-10.1) Magnesium Level 2.7mg/dL (1.8-2.4) Microbiology 08/03/16 Blood Culture - Preliminary, Resulted NO GROWTH AFTER 1 DAY 08/04/16 Gram Stain - Final, Complete Medications Current Medications Acetaminophen (Tylenol) 325 mg PRN QID PRN PO FEVER; Start 08/04/16 at 09:30 Acetaminophen/ Codeine Phosphate (Tylenol #3) 1 tab PRN BID PRN PO PAIN; Start 08/04/16 at 09:30 Acetylcysteine (Mucomyst 20% Oral Solution) 1,200 mg BID PO Last administered on 08/04/16 22:18; Start 08/04/16 at 21:00; Stop 08/06/16 at 20:59 Albuterol Sulfate 2.5 mg 2.5 mg 1X ONCE NEB Last administered on 08/04/16 12: 29; Start 08/04/16 at 12:30; Stop 08/04/16 at 12:31; Status DC Amitriptyline HCl (Elavil) 25 mg HS PO Last administered on 08/04/16 21:09; Start 08/04/16 at 21:00 Amlodipine Besylate (Norvasc) 5 mg DAILY PO Last administered on 08/04/16 10:52 ; Start 08/04/16 at 10:30 Anastrozole (Arimidex) 1 mg DAILY PO Last administered on 08/04/16 11:09; Start 08/04/16 at 10:30 Aspirin (Ecotrin) 81 mg DAILY PO Last administered on 08/04/16 10:53; Start 08/04/16 at 10:30 Aspirin 325 mg 325 mg 1X ONCE PO Last administered on 08/04/16 15:26; Start at 13:00; Stop 08/04/16 at 13:01; Status DC Clopidogrel Bisulfate (Plavix) 75 mg DAILY PO Last administered on 08/04/16 10: 51; Start 08/04/16 at 10:30 Dextrose 12.5 gm PRN Q15MIN PRN IV SEE COMMENTS; Start 08/04/16 at 09:30 Fluconazole/ Sodium Chloride (Diflucan 200mg/ 100ml Premix) 100 ml @ 100 mls/ hr Q24H IV Last administered on 08/04/16 15:17; Start 08/04/16 at 10:00; Stop at 07:47; Status DC Furosemide (Lasix) 20 mg DAILY PO Last administered on 08/04/16 10:53; Start at 10:30; Stop 08/04/16 at 14:25; Status DC Furosemide (Lasix) 40 mg 1X ONCE IVP Last administered on 08/04/16 13:12; Start 08/04/16 at 13:00; Stop 08/04/16 at 13:01; Status DC Furosemide 40 mg 40 mg DAILY IVP ; Start 08/04/16 at 15:00 Heparin Sodium (Porcine) 1,600 unit PRN Q6HRS PRN IV FOR UFH LEVEL LESS THAN 0.2; Start 08/04/16 at 12:45 Heparin Sodium (Porcine) 5,000 unit Q12HR SQ Last administered on 08/04/16 11: 09; Start 08/04/16 at 10:30; Stop 08/04/16 at 12:39; Status DC Heparin Sodium/ Dextrose 500 ml @ 0 mls/hr CONT PRN IV SEE I/O RECORD; Start at 12:45 Info (Anti-Coagulation Monitoring By Pharmacy) 1 each PRN DAILY PRN MC SEE COMMENTS; Start 08/04/16 at 12:45 Insulin Aspart (Novolog) 3 units ONCE ONCE SQ Last administered on 08/04/16 14 :14; Start 08/04/16 at 14:30; Stop 08/04/16 at 14:31; Status DC Insulin Aspart (Novolog) 7 units TIDWMEALS SQ Last administered on 08/04/16 18: 13; Start 08/04/16 at 12:00 Insulin Aspart 10 units 10 units 1X ONCE SQ Last administered on 08/04/16 22: 55; Start 08/04/16 at 23:00; Stop 08/04/16 at 23:01; Status DC Insulin Detemir (Levemir) 10 units DAILY@18 SQ ; Start 08/04/16 at 18:00; Stop at 18:00; Status DC Insulin Detemir 20 units 20 units DAILY@18 SQ Last administered on 08/04/16 18: 14; Start 08/04/16 at 18:00 Levothyroxine Sodium (Synthroid) 50 mcg DAILY07 PO Last administered on 10:53; Start 08/04/16 at 10:30 Linagliptin (Tradjenta) 5 mg DAILY PO Last administered on 08/04/16 10:53; Start 08/04/16 at 10:30 Lisinopril (Prinivil) 2.5 mg DAILY PO Last administered on 08/04/16 10:51; Start 08/04/16 at 10:30; Stop 08/04/16 at 15:22; Status DC Magnesium Sulfate/ Dextrose 100 ml @ 25 mls/hr 1X ONCE IV Last administered on 08/04/16 15:08; Start 08/04/16 at 15:00; Stop 08/04/16 at 18:59; Status DC Norepinephrine Bitartrate/Sodium Chloride (Levophed Vial/ Iv Sodium Chloride 0.9 % 250ml) 258 ml @ 0 mls/hr CONT PRN IV SEE I/O RECORD; Start 08/04/16 at 15:00 Pantoprazole Sodium (Protonix) 40 mg DAILYAC PO Last administered on 08/04/16 10:53; Start 08/04/16 at 10:30 Piperacillin Sod/ Tazobactam Sod/ Sodium Chloride (Zosyn/Iv Sodium Chloride 0.9 % 50ml) 50 ml @ 100 mls/hr Q6HRS IV Last administered on 08/05/16 06:03; Start 08/04/16 at 10:00 Potassium Chloride 100 ml @ 100 mls/hr Q1H IV Last administered on 08/04/16 18 :06; Start 08/04/16 at 15:00; Stop 08/04/16 at 16:59; Status DC Potassium Chloride (KCl Premix 20meq) 50 ml @ 50 mls/hr Q1H IV ; Start 08/05/16 at 09:00; Stop 08/05/16 at 10:59 Pregabalin (Lyrica) 50 mg BID PO Last administered on 08/04/16 21:09; Start 08/04/16 at 10:30 Silver Sulfadiazine (Silvadene) 1 opal DAILY TP Last administered on 08/04/16 15 :09; Start 08/04/16 at 10:30 Sodium Bicarbonate/ Sodium Chloride (Iv Sodium Chloride 0.45%) 1,075 ml @ 100 mls/hr [id number] IV Last administered on 08/05/16 04:45; Start 08/04/16 at 18:00 Sodium Chloride 1,000 ml @ 495 mls/hr Q2H2M IV Last administered on 08/04/16 15:30; Start 08/04/16 at 15:30; Stop 08/04/16 at 19:30; Status DC Sodium Chloride (Iv Sodium Chloride 0.9% 1000ml Bag) 1,000 ml @ 100 mls/hr Q10H IV ; Start 08/04/16 at 10:30 Vancomycin HCl 1 each 1X ONCE MC ; Start 08/06/16 at 10:30; Stop 08/06/16 at 10: 30; Status DC Vancomycin HCl 125 mg 125 mg [id number] PO Last administered on 08/04/16 22:17; Start 08/04/16 at 10:00 Vancomycin HCl 125 mg 125 mg [id number] PO ; Start 08/04/16 at 17:00; Stop 08/05/16 at 08:03; Status DC Vancomycin HCl 1 each 1 each PRN DAILY PRN MC SEE COMMENTS Last administered on 08/04/16 13:22; Start 08/04/16 at 09:15; Stop 08/05/16 at 08:02; Status DC Vancomycin HCl/ Sodium Chloride (Iv Sodium Chloride 0.9% 250ml) 250 ml @ 167 mls/hr Q24H IV ; Start 08/05/16 at 11:00; Stop 08/05/16 at 11:00; Status DC Vancomycin HCl/ Sodium Chloride (Iv Sodium Chloride 0.9% 500ml Bag) 500 ml @ 250 mls/hr 1X ONCE IV Last administered on 08/04/16 10:54; Start 08/04/16 at 09 :30; Stop 08/04/16 at 11:29; Status DC Vitals/I & O Vital Sign - Last 24 Hours 08/04/16 08/04/16 08/04/16 08/04/16 10:51 10:52 11:00 12:22 Temp 102.6 102.6 Pulse 91 91 102 Resp 18 B/P 102/42 102/42 116/49 Pulse Ox 91 88 O2 Delivery Room Air Room Air 08/04/16 08/04/16 08/04/16 08/04/16 14:30 15:00 16:00 16:00 Temp 99.8 97.8 99.8 97.8 Pulse 102 100 90 B/P 57/35 55/37 58/39 Pulse Ox 90 98 99 O2 Delivery Nasal Cannula Nasal Cannula Nasal Cannula Nasal Cannula O2 Flow Rate 4.0 4.0 4.0 4.0 08/04/16 08/04/16 08/04/16 08/04/16 17:00 17:30 18:00 18:45 Pulse 90 80 86 B/P 66/42 124/58 124/58 Pulse Ox 97 94 100 O2 Delivery Nasal Cannula Nasal Cannula Nasal Cannula Nasal Cannula O2 Flow Rate 4.0 4.0 4.0 4.0 08/04/16 08/04/16 08/04/16 08/04/16 19:00 19:45 20:00 21:00 Temp 98.1 98.1 Pulse 84 84 79 Resp 20 19 B/P 140/58 131/52 Pulse Ox 100 99 98 O2 Delivery Nasal Cannula Nasal Cannula Nasal Cannula Nasal Cannula O2 Flow Rate 4.0 4.0 4.0 4.0 08/04/16 08/04/16 08/05/16 08/05/16 22:00 23:00 00:10 00:20 Temp 98.4 98.4 Pulse 78 78 72 Resp 12 B/P 137/58 114/54 143/63 Pulse Ox 98 98 97 O2 Delivery Nasal Cannula Nasal Cannula Nasal Cannula Nasal Cannula O2 Flow Rate 4.0 4.0 4.0 4.0 08/05/16 08/05/16 08/05/16 08/05/16 01:00 02:00 03:00 04:00 Pulse 80 76 74 Resp 17 B/P 113/59 109/58 97/53 Pulse Ox 99 99 100 O2 Delivery Nasal Cannula Nasal Cannula Nasal Cannula Nasal Cannula O2 Flow Rate 4.0 4.0 4.0 4.0 08/05/16 08/05/16 08/05/16 08/05/16 04:00 04:30 05:00 06:00 Temp 98.2 98.2 Pulse 73 78 78 78 Resp 16 16 B/P 87/44 112/49 111/51 98/48 Pulse Ox 98 98 100 100 O2 Delivery Nasal Cannula Nasal Cannula Nasal Cannula Nasal Cannula O2 Flow Rate 4.0 4.0 4.0 4.0 Intake and Output 08/04/16 08/04/16 08/05/16 15:00 23:00 07:00 Intake Total 70 ml 2350 ml 1686 ml Output Total 450 ml 355 ml 360 ml Balance -380 ml 1995 ml 1326 ml JAMES CORCORAN MD Aug 05, 2016 09:11
[2016-08-05] MEDS: METOPROLOL TART IMMED RELEASE 25 MG TABLET PO SCH ×2 (09:15→21:00)
[2016-08-05] MEDS: LISINOPRIL 2.5 MG TABLET PO SCH (09:15)
--- NOTE | 2016-08-05 09:57 | RAD ---
Portable chest, 08/05/2016: History: Congestive heart failure Comparison is made to yesterday's study. The right PICC extends to the level of the atriocaval junction. The heart remains at the upper limits of normal in size. The pulmonary vascularity remains prominent with loss of vascular margination. There are mild basilar opacities, slightly increased on the left since yesterday's study. No pleural fluid is evident. IMPRESSION: Ongoing mild congestive heart failure with slight interval worsening of the mild left basilar infiltrate.
[2016-08-05] MEDS: ASPIRIN ENTERIC COATED 81 MG TABLET.DR. PO SCH (10:38)
[2016-08-05] MEDS: VANCOMYCIN 125 MG/2.5 ML ORAL SOLUTION. PO SCH ×4 (10:38→21:40)
--- NOTE | 2016-08-05 10:39 | PDOC ---
[facility] EVP OPERATIONS 08/05/16 1039: CARDIO Progress Notes Date and Time Date of Service 08/05/2016 Time of Evaluation 0945 Subjective Subjective: No Chest Pain, No Palpitations, No Dizziness, Other (SOA much better) Vitals Vitals Vital Signs Date Time Temp Pulse Resp B/P Pulse Ox O2 Delivery O2 Flow Rate FiO2 08/05/16 10:00 78 18 96/48 100 Nasal Cannula 4.0 08/05/16 08:00 97.9 97.9 Weight Weight [ ] Input and Output Intake and Output Intake and Output 08/05/16 07:00 Intake Total 4106 ml Output Total 1165 ml Balance 2941 ml Intake Oral 280 ml IV Total 3786 ml Other 40 ml Output Urine Total 1165 ml # Bowel Movements 7 Laboratory Labs Laboratory Tests Test 08/04/16 12:33 08/04/16 12:45 08/04/16 15:22 08/04/16 17:00 O2 Saturation 91% (92-99) 94% (92-99) Arterial Blood pH 7.40 (7.35-7.45) 7.31 (7.35-7.45) Arterial Blood pCO2 at Patient Temp 22mmHg (35-46) 27mmHg (35-46) Arterial Blood pO2 at Patient Temp 63mmHg (65-108) 79mmHg (65-108) Arterial Blood HCO3 13mmol/L (21-28) 13mmol/L (21-28) Arterial Blood Base Excess -10mmol/L (-3-3) -12mmol/L (-3-3) FiO2 32 36 White Blood Count 5.8x10^3/uL (4.0-11.0) Red Blood Count 3.21x10^6/uL (3.50-5.40) Hemoglobin 8.9g/dL (12.0-15.5) Hematocrit 26.8% (36.0-47.0) Mean Corpuscular Volume 84fL (79-100) Mean Corpuscular Hemoglobin 28pg (25-35) Mean Corpuscular Hemoglobin Concent 33g/dL (31-37) Red Cell Distribution Width 15.6% (11.5-14.5) Platelet Count 170x10^3/uL (140-400) Neutrophils (%) (Auto) 94% (31-73) Lymphocytes (%) (Auto) 4% (24-48) Monocytes (%) (Auto) 1% (0-9) Eosinophils (%) (Auto) 0% (0-3) Basophils (%) (Auto) 0% (0-3) Neutrophils # (Auto) 5.5x10^3uL (1.8-7.7) Lymphocytes # (Auto) 0.2x10^3/uL (1.0-4.8) Monocytes # (Auto) 0.1x10^3/uL (0.0-1.1) Eosinophils # (Auto) 0.0x10^3/uL (0.0-0.7) Basophils # (Auto) 0.0x10^3/uL (0.0-0.2) Segmented Neutrophils % 22% (35-66) Band Neutrophils % 70% (0-9) Lymphocytes % 5% (24-48) Monocytes % 1% (0-10) Metamyelocytes % 2% (0-0) Toxic Granulation Present Toxic Vacuolation Present Dohle Bodies Present Platelet Estimate Adequate (ADEQUATE) Poikilocytosis Slight Ovalocytes Few Matthew Cells Occ Schistocytes Occ Sodium Level 133mmol/L (136-145) Potassium Level 3.5mmol/L (3.5-5.1) Chloride Level 103mmol/L (98-107) Carbon Dioxide Level 15mmol/L (21-32) Anion Gap 15 (6-14) Blood Urea Nitrogen 34mg/dL (7-20) Creatinine 1.5mg/dL (0.6-1.0) Estimated GFR (Cockcroft-Gault) 33.1 Glucose Level 378mg/dL (70-99) Lactic Acid Level 4.1mmol/L (0.4-2.0) Calcium Level 8.1mg/dL (8.5-10.1) Magnesium Level 1.4mg/dL (1.8-2.4) Creatine Kinase 733U/L (26-192) Creatine Kinase MB (Mass) 5.8ng/mL (0.0-3.6) Creatine Kinase MB Relative Index 0.8% (0-4) Triglycerides Level 176mg/dL (0-150) Cholesterol Level 158mg/dL (0-200) LDL Cholesterol, Calculated 80mg/dL (0-100) VLDL Cholesterol, Calculated 35mg/dL (0-40) HDL Cholesterol 43mg/dL (40-60) Cholesterol/HDL Ratio 3.7 Thyroid Stimulating Hormone (TSH) 0.955uIU/mL (0.358-3.74) Troponin I Quantitative 2.380ng/mL (0.000-0.055) Test 08/04/16 17:30 08/04/16 18:09 08/04/16 21:15 08/04/16 22:32 Lactic Acid Level 2.2mmol/L (0.4-2.0) Glucose (Fingerstick) 388mg/dL (70-99) 445mg/dL (70-99) Urine Collection Type Unknown Urine Color Yellow Urine Clarity Cloudy Urine pH 5.5 Urine Specific [place] 1.010 Urine Protein 30mg/dL (NEG-TRACE) Urine Glucose (UA) 500mg/dL (NEG) Urine Ketones (Stick) Negativemg/dL (NEG) Urine Blood Large (NEG) Urine Nitrite Negative (NEG) Urine Bilirubin Negative (NEG) Urine Urobilinogen Dipstick 0.2mg/dL (0.2 mg/dL) Urine Leukocyte Esterase Large (NEG) Urine RBC 20-40/HPF (0-2) Urine WBC Tntc/HPF (0-4) Urine Squamous Epithelial Cells Few/LPF Urine Amorphous Sediment Present/HPF Urine Bacteria Moderate/HPF (0-FEW) Urine Granular Casts Occasional/HPF Urine Mucus Slight/LPF Urine Yeast Present/HPF Test 08/04/16 23:40 08/05/16 06:10 08/05/16 08:37 08/05/16 08:40 Heparin Anti-Xa Act, Unfractionated 0.27IU/mL (0.30-0.70) 0.29IU/mL (0.30-0.70) Troponin I Quantitative 9.002ng/mL (0.000-0.055) 9.265ng/mL (0.000-0.055) 7.936ng/mL (0.000-0.055) White Blood Count 12.9x10^3/uL (4.0-11.0) Red Blood Count 2.87x10^6/uL (3.50-5.40) Hemoglobin 7.8g/dL (12.0-15.5) Hematocrit 23.4% (36.0-47.0) Mean Corpuscular Volume 82fL (79-100) Mean Corpuscular Hemoglobin 27pg (25-35) Mean Corpuscular Hemoglobin Concent 33g/dL (31-37) Red Cell Distribution Width 15.8% (11.5-14.5) Platelet Count 173x10^3/uL (140-400) Neutrophils (%) (Auto) 89% (31-73) Lymphocytes (%) (Auto) 5% (24-48) Monocytes (%) (Auto) 4% (0-9) Eosinophils (%) (Auto) 2% (0-3) Basophils (%) (Auto) 0% (0-3) Neutrophils # (Auto) 11.5x10^3uL (1.8-7.7) Lymphocytes # (Auto) 0.6x10^3/uL (1.0-4.8) Monocytes # (Auto) 0.5x10^3/uL (0.0-1.1) Eosinophils # (Auto) 0.2x10^3/uL (0.0-0.7) Basophils # (Auto) 0.1x10^3/uL (0.0-0.2) Segmented Neutrophils % 37% (35-66) Band Neutrophils % 53% (0-9) Lymphocytes % 3% (24-48) Eosinophils % 7% (0-5) Platelet Estimate Adequate (ADEQUATE) Sodium Level 135mmol/L (136-145) Potassium Level 3.0mmol/L (3.5-5.1) Chloride Level 105mmol/L (98-107) Carbon Dioxide Level 20mmol/L (21-32) Anion Gap 10 (6-14) Blood Urea Nitrogen 35mg/dL (7-20) Creatinine 1.6mg/dL (0.6-1.0) Estimated GFR (Cockcroft-Gault) 30.7 Glucose Level 422mg/dL (70-99) Lactic Acid Level 1.0mmol/L (0.4-2.0) Calcium Level 7.5mg/dL (8.5-10.1) Magnesium Level 2.7mg/dL (1.8-2.4) 2.9mg/dL (1.8-2.4) Glucose (Fingerstick) 351mg/dL (70-99) Microbiology Micro Microbiology 08/04/16 Blood Culture - Preliminary, Resulted NO GROWTH AFTER 1 DAY 08/04/16 Gram Stain - Final, Complete Physical Exam HEENT: Neck Supple W Full Motion Chest: Symmetric LUNGS: Other (bibasilar crackles) Heart: S1S2, RRR (SR no significant ectopies overnight) Abdomen: Soft N/T Extremities: No Calf Tenderness, Other (trace LE edema) Neurology: alert, oriented, follow commands Assessment Assessment 1. Sepsis/hypotension: positive for C-diff/UTI with left foot osteomyelitis. Lactic acidosis resolved. vasopressor as warranted. ID following 2. Acute CHF with systolic dysfunction: improved SOA with lasix x1 yesterday with 350 ml within 2 hours post (not recorded in EMR). Continue with diuretic therapy. TTE with 40-45% with mild MR/TR and mild impariment to LV systolic function. 3. NSTEMI: CP free. Trop peaked 9.2. EKG with anterolateral ST depression. heparin drip ongoing. ASA. Further discussion with nephrology and lieu of renal dysfunction will tentatively schedule LHC for Monday next week. Discussed with pt/daughter /granddaughter re LHC and agreeable to proceed. Replace K. 4. Hx of PAD with past bypass: on plavix at home. 5. HTN: will place on BB later when of Levo and will hold any ACEi or ARB until renal function is optimized. 6. HLP: TSH normal, lipids on goal. Statin 7. DM2: uncontrolled, continue optimization per PCP 8. Hx of breast CA 9. Anemia of chronic disease: Hgb 7.8 from 9.1, likely hemodilutional 10. IGOR with suspected CKD3: Optimization per nephrology. GERI ANGULO MD 08/05/16 1209: CARDIO Progress Notes Assessment Assessment Patient seen and examined. Agree with [employer]'s assessment and plan. Agree with postponing left heart catheterization for Monday secondary to renal insufficiency as recommended by nephrology team. Continue intravenous heparin per protocol. Continue treatment of sepsis per ID team. KAYLA WAITE APRN Aug 05, 2016 10:39 GERI ANGULO MD Aug 05, 2016 12:09
[2016-08-05] MEDS: ANASTROZOLE 1 MG TABLET PO SCH (10:40)
[2016-08-05] MEDS: FUROSEMIDE 40 MG/4 ML VIAL IVP SCH (10:41)
[2016-08-05] MEDS: LEVOTHYROXINE 50 MCG TABLET PO SCH (10:41)
[2016-08-05] MEDS: CLOPIDOGREL BISULFATE 75 MG TABLET PO SCH (10:41)
[2016-08-05] MEDS: PREGABALIN 50 MG CAPSULE PO SCH ×2 (10:41→21:40)
[2016-08-05] MEDS: silver sulfADIAZINE 1% CREAM 25GM TUBE. TP SCH (10:42)
[2016-08-05] MEDS: PANTOPRAZOLE 40 MG TABLET. PO SCH (10:42)
[2016-08-05] MEDS: LINAGLIPTIN 5 MG TABLET PO SCH (10:42)
--- NOTE | 2016-08-05 10:42 | PDOC2 ---
CONSULT Date of Consult Date of Consult DATE: 08/05/16 TIME: 10:22 Reason for Consult Reason for Consult: IGOR Referring Physician Referring Physician: Dr Mcdonough Identification/Chief Complaint Chief Complaint Foot wound, fever weakness Problems: Source Source: Caregiver, Patient History of Present Illness Reason for Visit: as dictated Past Medical History Cardiovascular: HTN, Hyperlipidemia, Other (PAD) Pulmonary: No pertinent hx CENTRAL NERVOUS SYSTEM: Periperal neuropathy, Vertigo GI: GERD Heme/Onc: Anemia NOS, Cancer Hepatobiliary: No pertinent hx Psych: Anxiety Musculoskeletal: Osteoarthritis, Other (osteomyelitis) Rheumatologic: No pertinent hx Infectious disease: No pertinent hx ENT: Other (glaucoma) Renal/: Chronic renal insuff, Urinary Incontinence Endocrine: Diabetes (2), Hypothyroidism, Osteoporosis Past Surgical History Past Surgical History: Cholecystectomy, Cataract Removal, Mastectomy (left), Other (left fifth toe amputation) Family History Family History: Diabetes Social History No ALCOHOL: none Drugs: None Lives: with Family Current Problem List Problem List Problems Medical Problems: (1) NSTEMI (non-ST elevated myocardial infarction) Status: Acute (2) Sepsis Status: Acute (3) Urinary tract infection Status: Acute Current Medications Current Medications Current Medications Acetaminophen 1000 mg 1,000 mg 1X ONCE PO Last administered on 08/03/16 20:02 ; Start 08/03/16 at 20:00; Stop 08/03/16 at 20:01; Status DC Sodium Chloride 1,000 ml @ 1,000 mls/hr 1X ONCE IV Last administered on 20:02; Start 08/03/16 at 20:00; Stop 08/03/16 at 20:59; Status DC Ceftriaxone Sodium 50 ml @ 100 mls/hr 1X ONCE IV Last administered on 22:07; Start 08/03/16 at 21:00; Stop 08/03/16 at 21:29; Status DC Sodium Chloride (Iv Sodium Chloride 0.9% 500ml Bag) 500 ml @ 500 mls/hr 1X ONCE IV Last administered on 08/03/16 23:20; Start 08/03/16 at 21:30; Stop at 22:29; Status DC Ondansetron HCl 4 mg 4 mg PRN Q8HRS PRN IV NAUSEA/VOMITING; Start 08/03/16 at 21 :15; Stop 08/04/16 at 21:14; Status DC Sodium Chloride (Iv Sodium Chloride 0.9% 1000ml Bag) 1,000 ml @ 125 mls/hr Q8H IV Last administered on 08/04/16 05:12; Start 08/03/16 at 21:12; Stop 08/04/16 at 21:11; Status DC Acetaminophen 650 mg 650 mg PRN Q4HRS PRN PO FEVER Last administered on 10:51; Start 08/03/16 at 21:15; Stop 08/04/16 at 21:14; Status DC Vancomycin HCl/ Sodium Chloride (Iv Sodium Chloride 0.9% 500ml Bag) 500 ml @ 250 mls/hr 1X ONCE IV Last administered on 08/04/16 10:54; Start 08/04/16 at 09 :30; Stop 08/04/16 at 11:29; Status DC Vancomycin HCl 1 each 1 each PRN DAILY PRN MC SEE COMMENTS Last administered on 08/04/16 13:22; Start 08/04/16 at 09:15; Stop 08/05/16 at 08:02; Status DC Piperacillin Sod/ Tazobactam Sod/ Sodium Chloride (Zosyn/Iv Sodium Chloride 0.9 % 50ml) 50 ml @ 100 mls/hr Q6HRS IV Last administered on 08/05/16 06:03; Start 08/04/16 at 10:00 Vancomycin HCl 125 mg 125 mg [id number] PO Last administered on 08/04/16 22:17; Start 08/04/16 at 10:00 Fluconazole/ Sodium Chloride (Diflucan 200mg/ 100ml Premix) 100 ml @ 100 mls/ hr Q24H IV Last administered on 08/04/16 15:17; Start 08/04/16 at 10:00; Stop at 07:47; Status DC Acetaminophen (Tylenol) 325 mg PRN QID PRN PO FEVER; Start 08/04/16 at 09:30 Acetaminophen/ Codeine Phosphate (Tylenol #3) 1 tab PRN BID PRN PO PAIN; Start 08/04/16 at 09:30 Amitriptyline HCl (Elavil) 25 mg HS PO Last administered on 08/04/16 21:09; Start 08/04/16 at 21:00 Amlodipine Besylate (Norvasc) 5 mg DAILY PO Last administered on 08/04/16 10:52 ; Start 08/04/16 at 10:30; Stop 08/05/16 at 09:21; Status DC Anastrozole (Arimidex) 1 mg DAILY PO Last administered on 08/04/16 11:09; Start 08/04/16 at 10:30 Aspirin (Ecotrin) 81 mg DAILY PO Last administered on 08/04/16 10:53; Start 08/04/16 at 10:30 Clopidogrel Bisulfate (Plavix) 75 mg DAILY PO Last administered on 08/04/16 10: 51; Start 08/04/16 at 10:30 Furosemide (Lasix) 20 mg DAILY PO Last administered on 08/04/16 10:53; Start at 10:30; Stop 08/04/16 at 14:25; Status DC Insulin Aspart (Novolog) 7 units TIDWMEALS SQ Last administered on 08/04/16 18: 13; Start 08/04/16 at 12:00 Insulin Detemir (Levemir) 10 units DAILY@18 SQ ; Start 08/04/16 at 18:00; Stop at 18:00; Status DC Levothyroxine Sodium (Synthroid) 50 mcg DAILY07 PO Last administered on 10:53; Start 08/04/16 at 10:30 Linagliptin (Tradjenta) 5 mg DAILY PO Last administered on 08/04/16 10:53; Start 08/04/16 at 10:30 Lisinopril (Prinivil) 2.5 mg DAILY PO Last administered on 08/04/16 10:51; Start 08/04/16 at 10:30; Stop 08/04/16 at 15:22; Status DC Pantoprazole Sodium (Protonix) 40 mg DAILYAC PO Last administered on 08/04/16 10:53; Start 08/04/16 at 10:30 Pregabalin (Lyrica) 50 mg BID PO Last administered on 08/04/16 21:09; Start 08/04/16 at 10:30 Silver Sulfadiazine (Silvadene) 1 suzanna DAILY TP Last administered on 08/04/16 15 :09; Start 08/04/16 at 10:30 Dextrose 12.5 gm PRN Q15MIN PRN IV SEE COMMENTS; Start 08/04/16 at 09:30 Heparin Sodium (Porcine) 5,000 unit Q12HR SQ Last administered on 08/04/16 11: 09; Start 08/04/16 at 10:30; Stop 08/04/16 at 12:39; Status DC Insulin Detemir 20 units 20 units DAILY@18 SQ Last administered on 08/04/16 18: 14; Start 08/04/16 at 18:00 Sodium Chloride (Iv Sodium Chloride 0.9% 1000ml Bag) 1,000 ml @ 100 mls/hr Q10H IV ; Start 08/04/16 at 10:30; Stop 08/05/16 at 09:21; Status DC Albuterol Sulfate 2.5 mg 2.5 mg 1X ONCE NEB Last administered on 08/04/16 12: 29; Start 08/04/16 at 12:30; Stop 08/04/16 at 12:31; Status DC Heparin Sodium/ Dextrose 500 ml @ 0 mls/hr CONT PRN IV SEE I/O RECORD; Start at 12:45 Heparin Sodium (Porcine) 1,600 unit PRN Q6HRS PRN IV FOR UFH LEVEL LESS THAN 0.2; Start 08/04/16 at 12:45 Info (Anti-Coagulation Monitoring By Pharmacy) 1 each PRN DAILY PRN MC SEE COMMENTS; Start 08/04/16 at 12:45 Furosemide (Lasix) 40 mg 1X ONCE IVP Last administered on 08/04/16 13:12; Start 08/04/16 at 13:00; Stop 08/04/16 at 13:01; Status DC Aspirin 325 mg 325 mg 1X ONCE PO Last administered on 08/04/16 15:26; Start at 13:00; Stop 08/04/16 at 13:01; Status DC Vancomycin HCl/ Sodium Chloride (Iv Sodium Chloride 0.9% 250ml) 250 ml @ 167 mls/hr Q24H IV ; Start 08/05/16 at 11:00; Stop 08/05/16 at 11:00; Status DC Vancomycin HCl 1 each 1X ONCE MC ; Start 08/06/16 at 10:30; Stop 08/06/16 at 10: 30; Status DC Insulin Aspart (Novolog) 3 units ONCE ONCE SQ Last administered on 08/04/16 14 :14; Start 08/04/16 at 14:30; Stop 08/04/16 at 14:31; Status DC Furosemide 40 mg 40 mg DAILY IVP ; Start 08/04/16 at 15:00 Magnesium Sulfate/ Dextrose 100 ml @ 25 mls/hr 1X ONCE IV Last administered on 08/04/16 15:08; Start 08/04/16 at 15:00; Stop 08/04/16 at 18:59; Status DC Potassium Chloride 100 ml @ 100 mls/hr Q1H IV Last administered on 08/04/16 18 :06; Start 08/04/16 at 15:00; Stop 08/04/16 at 16:59; Status DC Sodium Chloride 1,000 ml @ 495 mls/hr Q2H2M IV Last administered on 08/04/16 15:30; Start 08/04/16 at 15:30; Stop 08/04/16 at 19:30; Status DC Norepinephrine Bitartrate/Sodium Chloride (Levophed Vial/ Iv Sodium Chloride 0.9 % 250ml) 258 ml @ 0 mls/hr CONT PRN IV SEE I/O RECORD; Start 08/04/16 at 15:00 Vancomycin HCl 125 mg 125 mg [id number] PO ; Start 08/04/16 at 17:00; Stop 08/05/16 at 08:03; Status DC Sodium Bicarbonate/ Sodium Chloride (Iv Sodium Chloride 0.45%) 1,075 ml @ 100 mls/hr [id number] IV Last administered on 08/05/16 04:45; Start 08/04/16 at 18:00 Acetylcysteine (Mucomyst 20% Oral Solution) 1,200 mg BID PO Last administered on 08/04/16 22:18; Start 08/04/16 at 21:00; Stop 08/06/16 at 20:59 Insulin Aspart 10 units 10 units 1X ONCE SQ Last administered on 08/04/16 22: 55; Start 08/04/16 at 23:00; Stop 08/04/16 at 23:01; Status DC Potassium Chloride (KCl Premix 20meq) 50 ml @ 50 mls/hr Q1H IV ; Start 08/05/16 at 09:00; Stop 08/05/16 at 10:59 Metoprolol Tartrate (Lopressor) 12.5 mg BID PO ; Start 08/05/16 at 09:15 Atorvastatin Calcium (Lipitor) 10 mg QHS PO ; Start 08/05/16 at 21:00 Lisinopril (Prinivil) 2.5 mg DAILY PO ; Start 08/05/16 at 09:15 Active Scripts Active Novolog Flexpen (Insulin Aspart) 300 Units/3 Ml Insuln.pen 7 Units SQ TIDWMEALS Reported Fvmpg-Nhmfjux-Bjdabthp Tablet (Multivit-Min/Iron Fum/Folic AC) 1 Each Tablet 1 Each PO Acetaminophen 325 Mg Tablet 325 Mg PO Silvadene (Silver Sulfadiazine) 20 Gm Cream..g. 1 Suzanna TP DAILY Levemir Flextouch (Insulin Detemir) 100 Unit/1 Ml Insuln.pen 100 Unit SQ Levothyroxine Sodium 50 Mcg Tablet 1 Tab PO DAILY Acidophilus (Lactobacillus Acidophilus) 1 Each Capsule 1 Each PO Lasix (Furosemide) 20 Mg Tablet 1 Tab PO DAILY Protonix (Pantoprazole Sodium) 40 Mg Tablet.dr 1 Tab PO DAILY Peridex (Chlorhexidine Gluconate) 15 Ml Mouthwash 15 Ml Cefepime Hcl 1 Gm Vial 1 Gm IJ Amlodipine Besylate 5 Mg Tablet 5 Mg PO DAILY Acetaminophen-Cod #3 Tablet (Acetaminophen/Codeine Phosphate) 1 Each Tablet 1 Tab PO BID PRN Lyrica (Pregabalin) 50 Mg Capsule 50 Mg PO BID Aspir 81 (Aspirin) 81 Mg Tablet.dr 81 Mg PO DAILY Lisinopril 2.5 Mg Tablet 2.5 Mg PO DAILY Tradjenta (Linagliptin) 5 Mg Tablet 5 Mg PO DAILY Clopidogrel (Clopidogrel Bisulfate) 75 Mg Tablet 75 Mg PO DAILY Amitriptyline Hcl 25 Mg Tablet 25 Mg PO HS Anastrozole 1 Mg Tablet 1 Mg PO DAILY Allergies Allergies: Coded Allergies: No Known Drug Allergies (Unverified , 04/29/14) ROS Review of System GEN: + Fevers no Chills EYES: ch Visual loss jacki ENT: no EN Drainage no Hearing deficiets CVS: no Orthopnea no CP RESP: no SOB no ORDAZ GI: no Nausea no Vomiting + Diarrhea : no Dysuria no Urgency HEME: no easy bruising no Palp Ly Nodes NEURO no Focal Weakness no Sz PSYCH: no Suicidal Ideation no Depression SKIN: no Rashes ENDO: no Polyuria or Polydipsia no Hot/Cold Intolerance MU SK: occ Arthraigia no Myalgia Physical Exam Physical Exam General Appearance: Awake Alert Oriented x 3 In no Distress Eyes: VIsion Unchanged Conjunctiva Normal EN: No EN Drainage Mucous Memb. moist Neck: no JVD min JVP Supple no Thyromegaly CVS: S1 S2 soft Murmur No Gallop No Rub no Edema Resp: few basal Rales no Rhonchi no Acc. Muscle use GI: BAS +ve NO Bruit Non Tender Non Distended : no CVA tenderness; no Suprapubic Tenderness SKIN: no Rashes Breast Exam deferred Mu.Sk: Adequate ROM no Muscle Atrophy Heme: Unable to palpate Obvious LAD no palp Splenomegaly NEURO: Good Strength and Tone Cranial Nerves II - XII grossly intact Psych: not Depressed no Active hallucination Vital Signs Vital Signs Date Time Temp Pulse Resp B/P Pulse Ox O2 Delivery O2 Flow Rate FiO2 08/05/16 10:00 78 18 96/48 100 Nasal Cannula 4.0 08/05/16 08:00 97.9 97.9 Assessment & Plan ARF/ ATN: Suspect after Rapid Response. BP are lowish still and requiring Pressors. Current FLuid and E-lyte status does not necessitate emergent need for Dialysis. Will re-evaluate for Dialysis in am - suspect ^ed CK is due to NSTEMI - doubt Rhabdo ? CKD III - baseline creat 1.1 - 1.3 Nephritic appearing Urine - ? ATN vs AIN/ Pyelo - await Urine culture Hypotension - on pressors - suspect asso with Sepsis from CDiff Met. Acidosis (with Lactic Acdemia ) - now some better with IVF with bicarb. change to PO Bicarb - suspect due to colitis too Anemia: may need Epogen. ? Transfuse as needed NSTEMI - no Arrhythmia or Angina currently - discussed with Dr Oneal - We would like to hold off of [facility] for now until Creat settles. CHF on CXR - will stop IVF for now Discussed Plan of Care and prognosis etc. at length with family - they agree to hold off of [facility] for now Labs Labs Laboratory Tests Test 08/03/16 19:35 08/03/16 19:50 08/03/16 20:09 08/04/16 00:15 White Blood Count 20.2x10^3/uL (4.0-11.0) Red Blood Count 3.39x10^6/uL (3.50-5.40) Hemoglobin 9.1g/dL (12.0-15.5) Hematocrit 28.1% (36.0-47.0) Mean Corpuscular Volume 83fL (79-100) Mean Corpuscular Hemoglobin 27pg (25-35) Mean Corpuscular Hemoglobin Concent 33g/dL (31-37) Red Cell Distribution Width 15.5% (11.5-14.5) Platelet Count 202x10^3/uL (140-400) Neutrophils (%) (Auto) 92% (31-73) Lymphocytes (%) (Auto) 3% (24-48) Monocytes (%) (Auto) 4% (0-9) Eosinophils (%) (Auto) 0% (0-3) Basophils (%) (Auto) 0% (0-3) Neutrophils # (Auto) 18.6x10^3uL (1.8-7.7) Lymphocytes # (Auto) 0.6x10^3/uL (1.0-4.8) Monocytes # (Auto) 0.9x10^3/uL (0.0-1.1) Eosinophils # (Auto) 0.0x10^3/uL (0.0-0.7) Basophils # (Auto) 0.1x10^3/uL (0.0-0.2) Segmented Neutrophils % 81% (35-66) Band Neutrophils % 15% (0-9) Lymphocytes % 4% (24-48) Toxic Granulation Slight Platelet Estimate Adequate (ADEQUATE) Hypochromasia Slight Anisocytosis Slight Sodium Level 136mmol/L (136-145) Potassium Level 3.5mmol/L (3.5-5.1) Chloride Level 102mmol/L (98-107) Carbon Dioxide Level 24mmol/L (21-32) Anion Gap 10 (6-14) Blood Urea Nitrogen 32mg/dL (7-20) Creatinine 1.1mg/dL (0.6-1.0) Estimated GFR (Cockcroft-Gault) 47.3 BUN/Creatinine Ratio 29 (6-20) Glucose Level 80mg/dL (70-99) Lactic Acid Level 1.4mmol/L (0.4-2.0) Calcium Level 8.8mg/dL (8.5-10.1) Total Bilirubin 0.3mg/dL (0.2-1.0) Aspartate Amino Transf (AST/SGOT) 17U/L (15-37) Alanine Aminotransferase (ALT/SGPT) 13U/L (14-59) Alkaline Phosphatase 81U/L (46-116) Total Protein 7.0g/dL (6.4-8.2) Albumin 2.7g/dL (3.4-5.0) Albumin/Globulin Ratio 0.6 (1.0-1.7) Glucose (Fingerstick) 85mg/dL (70-99) Influenza Type A Antigen Negative (NEGATIVE) Influenza Type B Antigen Negative (NEGATIVE) Nasal Screen MRSA (PCR) Negative (Negative) Test 08/04/16 03:29 08/04/16 04:00 08/04/16 09:35 08/04/16 12:33 Glucose (Fingerstick) 132mg/dL (70-99) Clostridium difficile Toxin (PCR) Positive (Negative) Troponin I Quantitative 1.413ng/mL (0.000-0.055) O2 Saturation 91% (92-99) Arterial Blood pH 7.40 (7.35-7.45) Arterial Blood pCO2 at Patient Temp 22mmHg (35-46) Arterial Blood pO2 at Patient Temp 63mmHg (65-108) Arterial Blood HCO3 13mmol/L (21-28) Arterial Blood Base Excess -10mmol/L (-3-3) FiO2 32 Test 08/04/16 12:45 08/04/16 15:22 08/04/16 17:00 08/04/16 17:30 White Blood Count 5.8x10^3/uL (4.0-11.0) Red Blood Count 3.21x10^6/uL (3.50-5.40) Hemoglobin 8.9g/dL (12.0-15.5) Hematocrit 26.8% (36.0-47.0) Mean Corpuscular Volume 84fL (79-100) Mean Corpuscular Hemoglobin 28pg (25-35) Mean Corpuscular Hemoglobin Concent 33g/dL (31-37) Red Cell Distribution Width 15.6% (11.5-14.5) Platelet Count 170x10^3/uL (140-400) Neutrophils (%) (Auto) 94% (31-73) Lymphocytes (%) (Auto) 4% (24-48) Monocytes (%) (Auto) 1% (0-9) Eosinophils (%) (Auto) 0% (0-3) Basophils (%) (Auto) 0% (0-3) Neutrophils # (Auto) 5.5x10^3uL (1.8-7.7) Lymphocytes # (Auto) 0.2x10^3/uL (1.0-4.8) Monocytes # (Auto) 0.1x10^3/uL (0.0-1.1) Eosinophils # (Auto) 0.0x10^3/uL (0.0-0.7) Basophils # (Auto) 0.0x10^3/uL (0.0-0.2) Segmented Neutrophils % 22% (35-66) Band Neutrophils % 70% (0-9) Lymphocytes % 5% (24-48) Monocytes % 1% (0-10) Metamyelocytes % 2% (0-0) Toxic Granulation Present Toxic Vacuolation Present Dohle Bodies Present Platelet Estimate Adequate (ADEQUATE) Poikilocytosis Slight Ovalocytes Few Matthew Cells Occ Schistocytes Occ Sodium Level 133mmol/L (136-145) Potassium Level 3.5mmol/L (3.5-5.1) Chloride Level 103mmol/L (98-107) Carbon Dioxide Level 15mmol/L (21-32) Anion Gap 15 (6-14) Blood Urea Nitrogen 34mg/dL (7-20) Creatinine 1.5mg/dL (0.6-1.0) Estimated GFR (Cockcroft-Gault) 33.1 Glucose Level 378mg/dL (70-99) Lactic Acid Level 4.1mmol/L (0.4-2.0) 2.2mmol/L (0.4-2.0) Calcium Level 8.1mg/dL (8.5-10.1) Magnesium Level 1.4mg/dL (1.8-2.4) Creatine Kinase 733U/L (26-192) Creatine Kinase MB (Mass) 5.8ng/mL (0.0-3.6) Creatine Kinase MB Relative Index 0.8% (0-4) Triglycerides Level 176mg/dL (0-150) Cholesterol Level 158mg/dL (0-200) LDL Cholesterol, Calculated 80mg/dL (0-100) VLDL Cholesterol, Calculated 35mg/dL (0-40) HDL Cholesterol 43mg/dL (40-60) Cholesterol/HDL Ratio 3.7 Thyroid Stimulating Hormone (TSH) 0.955uIU/mL (0.358-3.74) Troponin I Quantitative 2.380ng/mL (0.000-0.055) O2 Saturation 94% (92-99) Arterial Blood pH 7.31 (7.35-7.45) Arterial Blood pCO2 at Patient Temp 27mmHg (35-46) Arterial Blood pO2 at Patient Temp 79mmHg (65-108) Arterial Blood HCO3 13mmol/L (21-28) Arterial Blood Base Excess -12mmol/L (-3-3) FiO2 36 Test 08/04/16 18:09 08/04/16 21:15 08/04/16 22:32 08/04/16 23:40 Glucose (Fingerstick) 388mg/dL (70-99) 445mg/dL (70-99) Urine Collection Type Unknown Urine Color Yellow Urine Clarity Cloudy Urine pH 5.5 Urine Specific [place] 1.010 Urine Protein 30mg/dL (NEG-TRACE) Urine Glucose (UA) 500mg/dL (NEG) Urine Ketones (Stick) Negativemg/dL (NEG) Urine Blood Large (NEG) Urine Nitrite Negative (NEG) Urine Bilirubin Negative (NEG) Urine Urobilinogen Dipstick 0.2mg/dL (0.2 mg/dL) Urine Leukocyte Esterase Large (NEG) Urine RBC 20-40/HPF (0-2) Urine WBC Tntc/HPF (0-4) Urine Squamous Epithelial Cells Few/LPF Urine Amorphous Sediment Present/HPF Urine Bacteria Moderate/HPF (0-FEW) Urine Granular Casts Occasional/HPF Urine Mucus Slight/LPF Urine Yeast Present/HPF Heparin Anti-Xa Act, Unfractionated 0.27IU/mL (0.30-0.70) Troponin I Quantitative 9.002ng/mL (0.000-0.055) Test 08/05/16 06:10 08/05/16 08:37 08/05/16 08:40 White Blood Count 12.9x10^3/uL (4.0-11.0) Red Blood Count 2.87x10^6/uL (3.50-5.40) Hemoglobin 7.8g/dL (12.0-15.5) Hematocrit 23.4% (36.0-47.0) Mean Corpuscular Volume 82fL (79-100) Mean Corpuscular Hemoglobin 27pg (25-35) Mean Corpuscular Hemoglobin Concent 33g/dL (31-37) Red Cell Distribution Width 15.8% (11.5-14.5) Platelet Count 173x10^3/uL (140-400) Neutrophils (%) (Auto) 89% (31-73) Lymphocytes (%) (Auto) 5% (24-48) Monocytes (%) (Auto) 4% (0-9) Eosinophils (%) (Auto) 2% (0-3) Basophils (%) (Auto) 0% (0-3) Neutrophils # (Auto) 11.5x10^3uL (1.8-7.7) Lymphocytes # (Auto) 0.6x10^3/uL (1.0-4.8) Monocytes # (Auto) 0.5x10^3/uL (0.0-1.1) Eosinophils # (Auto) 0.2x10^3/uL (0.0-0.7) Basophils # (Auto) 0.1x10^3/uL (0.0-0.2) Segmented Neutrophils % 37% (35-66) Band Neutrophils % 53% (0-9) Lymphocytes % 3% (24-48) Eosinophils % 7% (0-5) Platelet Estimate Adequate (ADEQUATE) Heparin Anti-Xa Act, Unfractionated 0.29IU/mL (0.30-0.70) Sodium Level 135mmol/L (136-145) Potassium Level 3.0mmol/L (3.5-5.1) Chloride Level 105mmol/L (98-107) Carbon Dioxide Level 20mmol/L (21-32) Anion Gap 10 (6-14) Blood Urea Nitrogen 35mg/dL (7-20) Creatinine 1.6mg/dL (0.6-1.0) Estimated GFR (Cockcroft-Gault) 30.7 Glucose Level 422mg/dL (70-99) Lactic Acid Level 1.0mmol/L (0.4-2.0) Calcium Level 7.5mg/dL (8.5-10.1) Magnesium Level 2.7mg/dL (1.8-2.4) 2.9mg/dL (1.8-2.4) Troponin I Quantitative 9.265ng/mL (0.000-0.055) 7.936ng/mL (0.000-0.055) Glucose (Fingerstick) 351mg/dL (70-99) Laboratory Tests Test 08/04/16 12:33 08/04/16 12:45 08/04/16 15:22 08/04/16 17:00 O2 Saturation 91% (92-99) 94% (92-99) Arterial Blood pH 7.40 (7.35-7.45) 7.31 (7.35-7.45) Arterial Blood pCO2 at Patient Temp 22mmHg (35-46) 27mmHg (35-46) Arterial Blood pO2 at Patient Temp 63mmHg (65-108) 79mmHg (65-108) Arterial Blood HCO3 13mmol/L (21-28) 13mmol/L (21-28) Arterial Blood Base Excess -10mmol/L (-3-3) -12mmol/L (-3-3) FiO2 32 36 White Blood Count 5.8x10^3/uL (4.0-11.0) Red Blood Count 3.21x10^6/uL (3.50-5.40) Hemoglobin 8.9g/dL (12.0-15.5) Hematocrit 26.8% (36.0-47.0) Mean Corpuscular Volume 84fL (79-100) Mean Corpuscular Hemoglobin 28pg (25-35) Mean Corpuscular Hemoglobin Concent 33g/dL (31-37) Red Cell Distribution Width 15.6% (11.5-14.5) Platelet Count 170x10^3/uL (140-400) Neutrophils (%) (Auto) 94% (31-73) Lymphocytes (%) (Auto) 4% (24-48) Monocytes (%) (Auto) 1% (0-9) Eosinophils (%) (Auto) 0% (0-3) Basophils (%) (Auto) 0% (0-3) Neutrophils # (Auto) 5.5x10^3uL (1.8-7.7) Lymphocytes # (Auto) 0.2x10^3/uL (1.0-4.8) Monocytes # (Auto) 0.1x10^3/uL (0.0-1.1) Eosinophils # (Auto) 0.0x10^3/uL (0.0-0.7) Basophils # (Auto) 0.0x10^3/uL (0.0-0.2) Segmented Neutrophils % 22% (35-66) Band Neutrophils % 70% (0-9) Lymphocytes % 5% (24-48) Monocytes % 1% (0-10) Metamyelocytes % 2% (0-0) Toxic Granulation Present Toxic Vacuolation Present Dohle Bodies Present Platelet Estimate Adequate (ADEQUATE) Poikilocytosis Slight Ovalocytes Few [place] Cells Occ Schistocytes Occ Sodium Level 133mmol/L (136-145) Potassium Level 3.5mmol/L (3.5-5.1) Chloride Level 103mmol/L (98-107) Carbon Dioxide Level 15mmol/L (21-32) Anion Gap 15 (6-14) Blood Urea Nitrogen 34mg/dL (7-20) Creatinine 1.5mg/dL (0.6-1.0) Estimated GFR (Cockcroft-Gault) 33.1 Glucose Level 378mg/dL (70-99) Lactic Acid Level 4.1mmol/L (0.4-2.0) Calcium Level 8.1mg/dL (8.5-10.1) Magnesium Level 1.4mg/dL (1.8-2.4) Creatine Kinase 733U/L (26-192) Creatine Kinase MB (Mass) 5.8ng/mL (0.0-3.6) Creatine Kinase MB Relative Index 0.8% (0-4) Triglycerides Level 176mg/dL (0-150) Cholesterol Level 158mg/dL (0-200) LDL Cholesterol, Calculated 80mg/dL (0-100) VLDL Cholesterol, Calculated 35mg/dL (0-40) HDL Cholesterol 43mg/dL (40-60) Cholesterol/HDL Ratio 3.7 Thyroid Stimulating Hormone (TSH) 0.955uIU/mL (0.358-3.74) Troponin I Quantitative 2.380ng/mL (0.000-0.055) Test 08/04/16 17:30 08/04/16 18:09 08/04/16 21:15 08/04/16 22:32 Lactic Acid Level 2.2mmol/L (0.4-2.0) Glucose (Fingerstick) 388mg/dL (70-99) 445mg/dL (70-99) Urine Collection Type Unknown Urine Color Yellow Urine Clarity Cloudy Urine pH 5.5 Urine Specific [place] 1.010 Urine Protein 30mg/dL (NEG-TRACE) Urine Glucose (UA) 500mg/dL (NEG) Urine Ketones (Stick) Negativemg/dL (NEG) Urine Blood Large (NEG) Urine Nitrite Negative (NEG) Urine Bilirubin Negative (NEG) Urine Urobilinogen Dipstick 0.2mg/dL (0.2 mg/dL) Urine Leukocyte Esterase Large (NEG) Urine RBC 20-40/HPF (0-2) Urine WBC Tntc/HPF (0-4) Urine Squamous Epithelial Cells Few/LPF Urine Amorphous Sediment Present/HPF Urine Bacteria Moderate/HPF (0-FEW) Urine Granular Casts Occasional/HPF Urine Mucus Slight/LPF Urine Yeast Present/HPF Test 08/04/16 23:40 08/05/16 06:10 08/05/16 08:37 08/05/16 08:40 Heparin Anti-Xa Act, Unfractionated 0.27IU/mL (0.30-0.70) 0.29IU/mL (0.30-0.70) Troponin I Quantitative 9.002ng/mL (0.000-0.055) 9.265ng/mL (0.000-0.055) 7.936ng/mL (0.000-0.055) White Blood Count 12.9x10^3/uL (4.0-11.0) Red Blood Count 2.87x10^6/uL (3.50-5.40) Hemoglobin 7.8g/dL (12.0-15.5) Hematocrit 23.4% (36.0-47.0) Mean Corpuscular Volume 82fL (79-100) Mean Corpuscular Hemoglobin 27pg (25-35) Mean Corpuscular Hemoglobin Concent 33g/dL (31-37) Red Cell Distribution Width 15.8% (11.5-14.5) Platelet Count 173x10^3/uL (140-400) Neutrophils (%) (Auto) 89% (31-73) Lymphocytes (%) (Auto) 5% (24-48) Monocytes (%) (Auto) 4% (0-9) Eosinophils (%) (Auto) 2% (0-3) Basophils (%) (Auto) 0% (0-3) Neutrophils # (Auto) 11.5x10^3uL (1.8-7.7) Lymphocytes # (Auto) 0.6x10^3/uL (1.0-4.8) Monocytes # (Auto) 0.5x10^3/uL (0.0-1.1) Eosinophils # (Auto) 0.2x10^3/uL (0.0-0.7) Basophils # (Auto) 0.1x10^3/uL (0.0-0.2) Segmented Neutrophils % 37% (35-66) Band Neutrophils % 53% (0-9) Lymphocytes % 3% (24-48) Eosinophils % 7% (0-5) Platelet Estimate Adequate (ADEQUATE) Sodium Level 135mmol/L (136-145) Potassium Level 3.0mmol/L (3.5-5.1) Chloride Level 105mmol/L (98-107) Carbon Dioxide Level 20mmol/L (21-32) Anion Gap 10 (6-14) Blood Urea Nitrogen 35mg/dL (7-20) Creatinine 1.6mg/dL (0.6-1.0) Estimated GFR (Cockcroft-Gault) 30.7 Glucose Level 422mg/dL (70-99) Lactic Acid Level 1.0mmol/L (0.4-2.0) Calcium Level 7.5mg/dL (8.5-10.1) Magnesium Level 2.7mg/dL (1.8-2.4) 2.9mg/dL (1.8-2.4) Glucose (Fingerstick) 351mg/dL (70-99) Images Images The right kidney measures 11.0 x 5.2 x 5.1 centimeter and the left kidney measures 12.4 x 4.2 x 4.6 centimeter. Mild bilateral renal cortical thinning is noted. There is no hydronephrosis or nephrolithiasis. Small bilateral pleural effusions. The urinary bladder is decompressed. IMPRESSION Mild renal cortical thinning. This is a nonspecific finding and may be related to chronic changes Small bilateral pleural effusions. RAMIN MALDONADO MD Aug 05, 2016 10:42
[2016-08-05] MEDS ORDERED: MAGNESIUM SULFATE 2GM 50 ML IV PRN ×2 (10:45)
[2016-08-05] MEDS ORDERED: POTASSIUM CHLORIDE 20MEQ 50 ML IV PRN ×2 (10:45)
[2016-08-05] MEDS: INSULIN ASPART 300 UNITS/3 ML INSULN.PEN SQ SCH ×3 (10:45→21:41)
[2016-08-05] MEDS: ACETYLCYSTEINE 20% ORAL SOLN 600 MG/3 ML SYRINGE. PO SCH ×2 (10:58→21:39)
[2016-08-05] MEDS ORDERED: VANCOMYCIN 1.25 GM in IV NORMAL SALINE 250ML 250 ML IV SCH (11:00)
[2016-08-05] MEDS: NORMAL SALINE IV SCH ×4 (11:59→21:40)
[2016-08-05] MEDS: POTASSIUM ACETATE IV SCH ×4 (11:59→21:40)
--- NOTE | 2016-08-05 17:25 | PDOC ---
SURGICAL PROGRESS NOTE Vital Signs Vital Signs Date Time Temp Pulse Resp B/P Pulse Ox O2 Delivery O2 Flow Rate FiO2 08/05/16 17:00 86 18 102/42 96 Nasal Cannula 4.0 08/05/16 16:00 97.5 97.5 I&O Intake and Output 08/05/16 07:00 Intake Total 4156 ml Output Total 1165 ml Balance 2991 ml Intake Oral 280 ml IV Total 3836 ml Other 40 ml Output Urine Total 1165 ml # Bowel Movements 7 Extremities: Other (the patient has a wound vac in place. Photo taken yesterday of the wound shows a stable wound. There is no surrounding erythema.) Labs Laboratory Tests Test 08/03/16 19:35 08/03/16 19:50 08/03/16 20:09 08/04/16 00:15 White Blood Count 20.2x10^3/uL (4.0-11.0) Red Blood Count 3.39x10^6/uL (3.50-5.40) Hemoglobin 9.1g/dL (12.0-15.5) Hematocrit 28.1% (36.0-47.0) Mean Corpuscular Volume 83fL (79-100) Mean Corpuscular Hemoglobin 27pg (25-35) Mean Corpuscular Hemoglobin Concent 33g/dL (31-37) Red Cell Distribution Width 15.5% (11.5-14.5) Platelet Count 202x10^3/uL (140-400) Neutrophils (%) (Auto) 92% (31-73) Lymphocytes (%) (Auto) 3% (24-48) Monocytes (%) (Auto) 4% (0-9) Eosinophils (%) (Auto) 0% (0-3) Basophils (%) (Auto) 0% (0-3) Neutrophils # (Auto) 18.6x10^3uL (1.8-7.7) Lymphocytes # (Auto) 0.6x10^3/uL (1.0-4.8) Monocytes # (Auto) 0.9x10^3/uL (0.0-1.1) Eosinophils # (Auto) 0.0x10^3/uL (0.0-0.7) Basophils # (Auto) 0.1x10^3/uL (0.0-0.2) Segmented Neutrophils % 81% (35-66) Band Neutrophils % 15% (0-9) Lymphocytes % 4% (24-48) Toxic Granulation Slight Platelet Estimate Adequate (ADEQUATE) Hypochromasia Slight Anisocytosis Slight Sodium Level 136mmol/L (136-145) Potassium Level 3.5mmol/L (3.5-5.1) Chloride Level 102mmol/L (98-107) Carbon Dioxide Level 24mmol/L (21-32) Anion Gap 10 (6-14) Blood Urea Nitrogen 32mg/dL (7-20) Creatinine 1.1mg/dL (0.6-1.0) Estimated GFR (Cockcroft-Gault) 47.3 BUN/Creatinine Ratio 29 (6-20) Glucose Level 80mg/dL (70-99) Lactic Acid Level 1.4mmol/L (0.4-2.0) Calcium Level 8.8mg/dL (8.5-10.1) Total Bilirubin 0.3mg/dL (0.2-1.0) Aspartate Amino Transf (AST/SGOT) 17U/L (15-37) Alanine Aminotransferase (ALT/SGPT) 13U/L (14-59) Alkaline Phosphatase 81U/L (46-116) Total Protein 7.0g/dL (6.4-8.2) Albumin 2.7g/dL (3.4-5.0) Albumin/Globulin Ratio 0.6 (1.0-1.7) Glucose (Fingerstick) 85mg/dL (70-99) Influenza Type A Antigen Negative (NEGATIVE) Influenza Type B Antigen Negative (NEGATIVE) Nasal Screen MRSA (PCR) Negative (Negative) Test 08/04/16 03:29 08/04/16 04:00 08/04/16 09:35 08/04/16 12:33 Glucose (Fingerstick) 132mg/dL (70-99) Clostridium difficile Toxin (PCR) Positive (Negative) Troponin I Quantitative 1.413ng/mL (0.000-0.055) O2 Saturation 91% (92-99) Arterial Blood pH 7.40 (7.35-7.45) Arterial Blood pCO2 at Patient Temp 22mmHg (35-46) Arterial Blood pO2 at Patient Temp 63mmHg (65-108) Arterial Blood HCO3 13mmol/L (21-28) Arterial Blood Base Excess -10mmol/L (-3-3) FiO2 32 Test 08/04/16 12:45 08/04/16 15:22 08/04/16 17:00 08/04/16 17:30 White Blood Count 5.8x10^3/uL (4.0-11.0) Red Blood Count 3.21x10^6/uL (3.50-5.40) Hemoglobin 8.9g/dL (12.0-15.5) Hematocrit 26.8% (36.0-47.0) Mean Corpuscular Volume 84fL (79-100) Mean Corpuscular Hemoglobin 28pg (25-35) Mean Corpuscular Hemoglobin Concent 33g/dL (31-37) Red Cell Distribution Width 15.6% (11.5-14.5) Platelet Count 170x10^3/uL (140-400) Neutrophils (%) (Auto) 94% (31-73) Lymphocytes (%) (Auto) 4% (24-48) Monocytes (%) (Auto) 1% (0-9) Eosinophils (%) (Auto) 0% (0-3) Basophils (%) (Auto) 0% (0-3) Neutrophils # (Auto) 5.5x10^3uL (1.8-7.7) Lymphocytes # (Auto) 0.2x10^3/uL (1.0-4.8) Monocytes # (Auto) 0.1x10^3/uL (0.0-1.1) Eosinophils # (Auto) 0.0x10^3/uL (0.0-0.7) Basophils # (Auto) 0.0x10^3/uL (0.0-0.2) Segmented Neutrophils % 22% (35-66) Band Neutrophils % 70% (0-9) Lymphocytes % 5% (24-48) Monocytes % 1% (0-10) Metamyelocytes % 2% (0-0) Toxic Granulation Present Toxic Vacuolation Present Dohle Bodies Present Platelet Estimate Adequate (ADEQUATE) Poikilocytosis Slight Ovalocytes Few [place] Cells Occ Schistocytes Occ Sodium Level 133mmol/L (136-145) Potassium Level 3.5mmol/L (3.5-5.1) Chloride Level 103mmol/L (98-107) Carbon Dioxide Level 15mmol/L (21-32) Anion Gap 15 (6-14) Blood Urea Nitrogen 34mg/dL (7-20) Creatinine 1.5mg/dL (0.6-1.0) Estimated GFR (Cockcroft-Gault) 33.1 Glucose Level 378mg/dL (70-99) Lactic Acid Level 4.1mmol/L (0.4-2.0) 2.2mmol/L (0.4-2.0) Calcium Level 8.1mg/dL (8.5-10.1) Magnesium Level 1.4mg/dL (1.8-2.4) Creatine Kinase 733U/L (26-192) Creatine Kinase MB (Mass) 5.8ng/mL (0.0-3.6) Creatine Kinase MB Relative Index 0.8% (0-4) Triglycerides Level 176mg/dL (0-150) Cholesterol Level 158mg/dL (0-200) LDL Cholesterol, Calculated 80mg/dL (0-100) VLDL Cholesterol, Calculated 35mg/dL (0-40) HDL Cholesterol 43mg/dL (40-60) Cholesterol/HDL Ratio 3.7 Thyroid Stimulating Hormone (TSH) 0.955uIU/mL (0.358-3.74) Troponin I Quantitative 2.380ng/mL (0.000-0.055) O2 Saturation 94% (92-99) Arterial Blood pH 7.31 (7.35-7.45) Arterial Blood pCO2 at Patient Temp 27mmHg (35-46) Arterial Blood pO2 at Patient Temp 79mmHg (65-108) Arterial Blood HCO3 13mmol/L (21-28) Arterial Blood Base Excess -12mmol/L (-3-3) FiO2 36 Test 08/04/16 18:09 08/04/16 21:15 08/04/16 22:32 08/04/16 23:40 Glucose (Fingerstick) 388mg/dL (70-99) 445mg/dL (70-99) Urine Collection Type Unknown Urine Color Yellow Urine Clarity Cloudy Urine pH 5.5 Urine Specific [place] 1.010 Urine Protein 30mg/dL (NEG-TRACE) Urine Glucose (UA) 500mg/dL (NEG) Urine Ketones (Stick) Negativemg/dL (NEG) Urine Blood Large (NEG) Urine Nitrite Negative (NEG) Urine Bilirubin Negative (NEG) Urine Urobilinogen Dipstick 0.2mg/dL (0.2 mg/dL) Urine Leukocyte Esterase Large (NEG) Urine RBC 20-40/HPF (0-2) Urine WBC Tntc/HPF (0-4) Urine Squamous Epithelial Cells Few/LPF Urine Amorphous Sediment Present/HPF Urine Bacteria Moderate/HPF (0-FEW) Urine Granular Casts Occasional/HPF Urine Mucus Slight/LPF Urine Yeast Present/HPF Heparin Anti-Xa Act, Unfractionated 0.27IU/mL (0.30-0.70) Troponin I Quantitative 9.002ng/mL (0.000-0.055) Test 08/05/16 06:10 08/05/16 08:37 08/05/16 08:40 08/05/16 12:04 White Blood Count 12.9x10^3/uL (4.0-11.0) Red Blood Count 2.87x10^6/uL (3.50-5.40) Hemoglobin 7.8g/dL (12.0-15.5) Hematocrit 23.4% (36.0-47.0) Mean Corpuscular Volume 82fL (79-100) Mean Corpuscular Hemoglobin 27pg (25-35) Mean Corpuscular Hemoglobin Concent 33g/dL (31-37) Red Cell Distribution Width 15.8% (11.5-14.5) Platelet Count 173x10^3/uL (140-400) Neutrophils (%) (Auto) 89% (31-73) Lymphocytes (%) (Auto) 5% (24-48) Monocytes (%) (Auto) 4% (0-9) Eosinophils (%) (Auto) 2% (0-3) Basophils (%) (Auto) 0% (0-3) Neutrophils # (Auto) 11.5x10^3uL (1.8-7.7) Lymphocytes # (Auto) 0.6x10^3/uL (1.0-4.8) Monocytes # (Auto) 0.5x10^3/uL (0.0-1.1) Eosinophils # (Auto) 0.2x10^3/uL (0.0-0.7) Basophils # (Auto) 0.1x10^3/uL (0.0-0.2) Segmented Neutrophils % 37% (35-66) Band Neutrophils % 53% (0-9) Lymphocytes % 3% (24-48) Eosinophils % 7% (0-5) Platelet Estimate Adequate (ADEQUATE) Heparin Anti-Xa Act, Unfractionated 0.29IU/mL (0.30-0.70) Sodium Level 135mmol/L (136-145) Potassium Level 3.0mmol/L (3.5-5.1) Chloride Level 105mmol/L (98-107) Carbon Dioxide Level 20mmol/L (21-32) Anion Gap 10 (6-14) Blood Urea Nitrogen 35mg/dL (7-20) Creatinine 1.6mg/dL (0.6-1.0) Estimated GFR (Cockcroft-Gault) 30.7 Glucose Level 422mg/dL (70-99) Lactic Acid Level 1.0mmol/L (0.4-2.0) Calcium Level 7.5mg/dL (8.5-10.1) Magnesium Level 2.7mg/dL (1.8-2.4) 2.9mg/dL (1.8-2.4) Troponin I Quantitative 9.265ng/mL (0.000-0.055) 7.936ng/mL (0.000-0.055) Glucose (Fingerstick) 351mg/dL (70-99) 290mg/dL (70-99) Test 08/05/16 14:36 Heparin Anti-Xa Act, Unfractionated 0.27IU/mL (0.30-0.70) Laboratory Tests Test 08/04/16 17:30 08/04/16 18:09 08/04/16 21:15 08/04/16 22:32 Lactic Acid Level 2.2mmol/L (0.4-2.0) Glucose (Fingerstick) 388mg/dL (70-99) 445mg/dL (70-99) Urine Collection Type Unknown Urine Color Yellow Urine Clarity Cloudy Urine pH 5.5 Urine Specific [place] 1.010 Urine Protein 30mg/dL (NEG-TRACE) Urine Glucose (UA) 500mg/dL (NEG) Urine Ketones (Stick) Negativemg/dL (NEG) Urine Blood Large (NEG) Urine Nitrite Negative (NEG) Urine Bilirubin Negative (NEG) Urine Urobilinogen Dipstick 0.2mg/dL (0.2 mg/dL) Urine Leukocyte Esterase Large (NEG) Urine RBC 20-40/HPF (0-2) Urine WBC Tntc/HPF (0-4) Urine Squamous Epithelial Cells Few/LPF Urine Amorphous Sediment Present/HPF Urine Bacteria Moderate/HPF (0-FEW) Urine Granular Casts Occasional/HPF Urine Mucus Slight/LPF Urine Yeast Present/HPF Test 08/04/16 23:40 08/05/16 06:10 08/05/16 08:37 08/05/16 08:40 Heparin Anti-Xa Act, Unfractionated 0.27IU/mL (0.30-0.70) 0.29IU/mL (0.30-0.70) Troponin I Quantitative 9.002ng/mL (0.000-0.055) 9.265ng/mL (0.000-0.055) 7.936ng/mL (0.000-0.055) White Blood Count 12.9x10^3/uL (4.0-11.0) Red Blood Count 2.87x10^6/uL (3.50-5.40) Hemoglobin 7.8g/dL (12.0-15.5) Hematocrit 23.4% (36.0-47.0) Mean Corpuscular Volume 82fL (79-100) Mean Corpuscular Hemoglobin 27pg (25-35) Mean Corpuscular Hemoglobin Concent 33g/dL (31-37) Red Cell Distribution Width 15.8% (11.5-14.5) Platelet Count 173x10^3/uL (140-400) Neutrophils (%) (Auto) 89% (31-73) Lymphocytes (%) (Auto) 5% (24-48) Monocytes (%) (Auto) 4% (0-9) Eosinophils (%) (Auto) 2% (0-3) Basophils (%) (Auto) 0% (0-3) Neutrophils # (Auto) 11.5x10^3uL (1.8-7.7) Lymphocytes # (Auto) 0.6x10^3/uL (1.0-4.8) Monocytes # (Auto) 0.5x10^3/uL (0.0-1.1) Eosinophils # (Auto) 0.2x10^3/uL (0.0-0.7) Basophils # (Auto) 0.1x10^3/uL (0.0-0.2) Segmented Neutrophils % 37% (35-66) Band Neutrophils % 53% (0-9) Lymphocytes % 3% (24-48) Eosinophils % 7% (0-5) Platelet Estimate Adequate (ADEQUATE) Sodium Level 135mmol/L (136-145) Potassium Level 3.0mmol/L (3.5-5.1) Chloride Level 105mmol/L (98-107) Carbon Dioxide Level 20mmol/L (21-32) Anion Gap 10 (6-14) Blood Urea Nitrogen 35mg/dL (7-20) Creatinine 1.6mg/dL (0.6-1.0) Estimated GFR (Cockcroft-Gault) 30.7 Glucose Level 422mg/dL (70-99) Lactic Acid Level 1.0mmol/L (0.4-2.0) Calcium Level 7.5mg/dL (8.5-10.1) Magnesium Level 2.7mg/dL (1.8-2.4) 2.9mg/dL (1.8-2.4) Glucose (Fingerstick) 351mg/dL (70-99) Test 08/05/16 12:04 08/05/16 14:36 Glucose (Fingerstick) 290mg/dL (70-99) Heparin Anti-Xa Act, Unfractionated 0.27IU/mL (0.30-0.70) Problem List Problems Medical Problems: (1) NSTEMI (non-ST elevated myocardial infarction) Status: Acute (2) Sepsis Status: Acute (3) Urinary tract infection Status: Acute Assessment/Plan 1. nstemi . ICU monitoring. Will need heart cath pending renal assessment 2. stable wound. Failed bypass. 3. renal insuficiency Rec: cont. wound management with suction dressing. Will evaluate as necessary. Problems: THAD IRAHETA II, MD Aug 05, 2016 17:25
[2016-08-05] MEDS: HEPARIN 25,000UTS/500ML PREMIX 500 ML IV PRN (17:44)
[2016-08-05] MEDS: INSULIN DETEMIR 300 UNITS/3 ML INSULN.PEN. SQ SCH ×2 (18:00→18:03)
[2016-08-05] MEDS ORDERED: INSULIN DETEMIR 300 UNITS/3 ML INSULN.PEN. SQ ONE (18:30)
[2016-08-05] MEDS ORDERED: DEXTROSE 50% 25 GM / 50ML DISP.SYRIN. IV PRN (18:30)
[2016-08-05] MEDS ORDERED: INSULIN ASPART 300 UNITS/3 ML INSULN.PEN SQ ONE (18:45)
[2016-08-05] MEDS: ATORVASTATIN CALCIUM 10 MG TABLET. PO SCH (21:40)
[2016-08-05] MEDS: AMITRIPTYLINE HCL 25 MG TABLET PO SCH (21:40)
[2016-08-05 22:09] LABS: HEMATOCRIT 23.5 % (36.0-47.0); HEMOGLOBIN 7.8 g/dL (12.0-15.5); RED BLOOD COUNT 2.83 x10^6/uL (3.50-5.40); RED CELL DISTRIBUTION WIDTH 15.6 % (11.5-14.5); WHITE BLOOD COUNT 7.9 x10^3/uL (4.0-11.0)
[2016-08-06] VITALS (24 sets, daily range): BP systolic 95–147; BP diastolic 40–74
--- NOTE | 2016-08-06 05:27 | CONS ---
DATE OF CONSULTATION: PRIMARY PHYSICIAN: Dr. Mcdonough. REASON FOR CONSULTATION: Acute renal failure. HISTORY OF PRESENT ILLNESS: The patient is an 86-year-old female, does not speak much [place]. Her granddaughter in the room translates for me. 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 She developed fevers, chills recently. She had a PICC line and was sent to healthcare [facility] at [place] to continue IV antibiotics. She is now felt to have C. diff and febrile illness, possible sepsis. She underwent rapid response upstairs and was brought to the ICU. On arrival here, she was noted to have bicarbonate of 15, creatinine is 1.5, glucose 378, lactic acid 4.1, magnesium 1.4. In this setting, magnesium was replaced. IV fluids were changed to bicarbonate. Lactate has been trended ____ this morning. She was still running high. Creatinine has gone up from 1.5-1.6. She usually runs a baseline creatinine of about 1.1-1.3. Her renal sonogram today was normal. She does have nephritic appearing urine with a lot of glucose, large amount of blood. CK is not elevated, but she has also sustained a non-STEMI. In this setting, we were asked to see her for further evaluation. For rest of the details, please see electronic renal consult note. RAMIN MALDONADO MD DR: GABRIEL/liang JOB#: [id number] / [id number]
[2016-08-06] MEDS: PIPERACILLIN/TAZOBACTAM 3.375 GM in IV NORMAL SALINE 50ML 50 ML IV SCH (06:04)
[2016-08-06 06:47] LABS: BASO # 0.1 x10^3/uL (0.0-0.2); BASO % 1 % (0-3); EOS % 4 % (0-3); HEMATOCRIT 23.2 % (36.0-47.0); HEMOGLOBIN 7.6 g/dL (12.0-15.5); LYMPH # 0.7 x10^3/uL (1.0-4.8); LYMPH % 8 % (24-48); MEAN CORPUSCULAR HEMOGLOBIN 27 pg (25-35); MEAN CORPUSCULAR HGB CONC 33 g/dL (31-37); MEAN CORPUSCULAR VOLUME 83 fL (79-100); MONO % 6 % (0-9); NEUT % 82 % (31-73); PLATELET COUNT 164 x10^3/uL (140-400); RED CELL DISTRIBUTION WIDTH 15.7 % (11.5-14.5); WHITE BLOOD COUNT 9.4 x10^3/uL (4.0-11.0)
[2016-08-06 06:48] LABS: ALBUMIN 1.9 g/dL (3.4-5.0); CALCIUM 7.8 mg/dL (8.5-10.1); CREATININE 1.6 mg/dL (0.6-1.0); GFR 30.7; PHOSPHORUS 2.3 mg/dL (2.6-4.7); POTASSIUM 3.2 mmol/L (3.5-5.1)
[2016-08-06] MEDS: INSULIN ASPART 300 UNITS/3 ML INSULN.PEN SQ SCH ×6 (08:00→17:33)
[2016-08-06] MEDS: LISINOPRIL 2.5 MG TABLET PO SCH (09:00)
[2016-08-06] MEDS: silver sulfADIAZINE 1% CREAM 25GM TUBE. TP SCH (09:00)
[2016-08-06] MEDS: METOPROLOL TART IMMED RELEASE 25 MG TABLET PO SCH ×2 (09:00→21:00)
[2016-08-06] MEDS: VANCOMYCIN 125 MG/2.5 ML ORAL SOLUTION. PO SCH ×4 (09:20→21:17)
--- NOTE | 2016-08-06 09:20 | PDOC ---
Infectious Disease Note Subjective Subjective Fever 100.2 Hypotensive, on Levophed 2 mcg. "mucho" diarrhea. Abdomen feels sore but no cramping, N/V. Granddaughters present, assisting with interpreting. ROS ROS GEN: Denies chills CV: Denies chest pain RESP: Denies shortness of air, cough Vital Sign Vital Signs Vital Signs Date Time Temp Pulse Resp B/P Pulse Ox O2 Delivery O2 Flow Rate FiO2 08/06/16 06:00 80 19 95/53 100 Nasal Cannula 4.0 08/06/16 04:00 99.4 99.4 Physical Exam PHYSICAL EXAM GENERAL: Propped up in bed, eating HEENT: Oral cavity pink and moist NECK: Supple LUNGS: Clear HEART: S1S2 ABD: Round, BS present, soft, NT : [place] EXT: Left foot trace edema w/ wound vac in place; no redness. [employer]ING [employer]WMEMBER: Alert, coop, no focal neurologic deficit SKIN: No rash RUE-PICC. clean Labs Lab Laboratory Tests Test 08/05/16 12:04 08/05/16 14:36 08/05/16 17:41 08/05/16 21:38 Glucose (Fingerstick) 290mg/dL (70-99) 312mg/dL (70-99) 338mg/dL (70-99) Heparin Anti-Xa Act, Unfractionated 0.27IU/mL (0.30-0.70) Test 08/05/16 22:00 08/06/16 00:20 08/06/16 06:25 08/06/16 08:37 White Blood Count 7.9x10^3/uL (4.0-11.0) 9.4x10^3/uL (4.0-11.0) Red Blood Count 2.83x10^6/uL (3.50-5.40) 2.80x10^6/uL (3.50-5.40) Hemoglobin 7.8g/dL (12.0-15.5) 7.6g/dL (12.0-15.5) Hematocrit 23.5% (36.0-47.0) 23.2% (36.0-47.0) Mean Corpuscular Volume 83fL (79-100) 83fL (79-100) Mean Corpuscular Hemoglobin 28pg (25-35) 27pg (25-35) Mean Corpuscular Hemoglobin Concent 33g/dL (31-37) 33g/dL (31-37) Red Cell Distribution Width 15.6% (11.5-14.5) 15.7% (11.5-14.5) Platelet Count 165x10^3/uL (140-400) 164x10^3/uL (140-400) Potassium Level 3.4mmol/L (3.5-5.1) 3.2mmol/L (3.5-5.1) Heparin Anti-Xa Act, Unfractionated 0.36IU/mL (0.30-0.70) Neutrophils (%) (Auto) 82% (31-73) Lymphocytes (%) (Auto) 8% (24-48) Monocytes (%) (Auto) 6% (0-9) Eosinophils (%) (Auto) 4% (0-3) Basophils (%) (Auto) 1% (0-3) Neutrophils # (Auto) 7.7x10^3uL (1.8-7.7) Lymphocytes # (Auto) 0.7x10^3/uL (1.0-4.8) Monocytes # (Auto) 0.6x10^3/uL (0.0-1.1) Eosinophils # (Auto) 0.3x10^3/uL (0.0-0.7) Basophils # (Auto) 0.1x10^3/uL (0.0-0.2) Sodium Level 139mmol/L (136-145) Chloride Level 108mmol/L (98-107) Carbon Dioxide Level 21mmol/L (21-32) Anion Gap 10 (6-14) Blood Urea Nitrogen 32mg/dL (7-20) Creatinine 1.6mg/dL (0.6-1.0) Estimated GFR (Cockcroft-Gault) 30.7 Glucose Level 139mg/dL (70-99) Calcium Level 7.8mg/dL (8.5-10.1) Phosphorus Level 2.3mg/dL (2.6-4.7) Magnesium Level 2.3mg/dL (1.8-2.4) Albumin 1.9g/dL (3.4-5.0) Glucose (Fingerstick) 125mg/dL (70-99) Micro BLOOD CULTURE Preliminary NO GROWTH AFTER 1 DAY Foot GRAM STAIN Final WBCS MANY RBCS MANY GRAM NEGATIVE RODS OCCASIONAL YEAST OCCASIONAL Objective Assessment Fever Leukocytosis, improved Left foot wound /osteo. GNR and yeast on GS on Aug 04. -s/p left fifth toe open amputation with wound vac C diff. 2/2. DM w/ peripheral neuropathy PVD. s/p failed LLE bypass graft IGOR Anemia NSTEMI CHF on x-ray Plan Plan of Care Cont po vanc Add Probiitics Hold Zosyn f/u cultures and cults supportive care ARMAAN NGUYEN APRN Aug 06, 2016 09:20 CHRISTINE CARL MD Aug 06, 2016 12:13
[2016-08-06] MEDS: ACETYLCYSTEINE 20% ORAL SOLN 600 MG/3 ML SYRINGE. PO SCH (09:21)
[2016-08-06] MEDS: LEVOTHYROXINE 50 MCG TABLET PO SCH (09:22)
[2016-08-06] MEDS: PANTOPRAZOLE 40 MG TABLET. PO SCH (09:22)
[2016-08-06] MEDS: FUROSEMIDE 40 MG/4 ML VIAL IVP SCH (09:22)
[2016-08-06] MEDS: ANASTROZOLE 1 MG TABLET PO SCH (09:24)
[2016-08-06] MEDS: ASPIRIN ENTERIC COATED 81 MG TABLET.DR. PO SCH (09:26)
[2016-08-06] MEDS: CLOPIDOGREL BISULFATE 75 MG TABLET PO SCH (09:26)
[2016-08-06] MEDS: LINAGLIPTIN 5 MG TABLET PO SCH (09:27)
[2016-08-06] MEDS: PREGABALIN 50 MG CAPSULE PO SCH ×2 (09:27→21:17)
--- NOTE | 2016-08-06 12:23 | PDOC ---
SUBJECTIVE ROS IGOR DOing OK overall CVS: no Orthopnea, no CP RESP: no SOB, no ORDAZ GI: no Nausea, no Vomiting + Diarrhea : no Dysuria, no Urgency OBJECTIVE Vital Signs Vital Signs Date Time Temp Pulse Resp B/P Pulse Ox O2 Delivery O2 Flow Rate FiO2 08/06/16 06:00 80 19 95/53 100 Nasal Cannula 4.0 08/06/16 04:00 99.4 99.4 I & 0 Intake and Output 08/06/16 07:00 Intake Total 2370 ml Output Total 1325 ml Balance 1045 ml Intake Oral 1100 ml IV Total 455 ml Other 815 ml Output Urine Total 1325 ml # Bowel Movements 4 PHYSICAL EXAM Physical Exam General Appearance: Awake Alert Oriented x 3 In no Distress Eyes: VIsion Unchanged Conjunctiva Normal EN: No EN Drainage Mucous Memb. moist Neck: no JVD min JVP Supple no Thyromegaly CVS: S1 S2 soft Murmur No Gallop No Rub no Edema Resp: few basal Rales no Rhonchi no Acc. Muscle use GI: BS +ve NO Bruit min Tender on the Rt Side Non Distended : no CVA tenderness; no Suprapubic Tenderness SKIN: no Rashes Breast Exam deferred Mu.Sk: Adequate ROM no Muscle Atrophy Heme: Unable to palpate Obvious LAD no palp Splenomegaly NEURO: Good Strength and Tone Cranial Nerves II - XII grossly intact Psych: not Depressed no Active hallucination Assessment & Plan ARF/ ATN: Suspect after Rapid Response. BP are lowish still and just off of Pressors. Current FLuid and E-lyte status does not necessitate emergent need for Dialysis. Will re-evaluate for Dialysis in am - suspect ^ed CK is due to NSTEMI - doubt Rhabdo; Hold Lasix while she is having profuse diarrhea. IVF as ordered ? CKD III - baseline creat 1.1 - 1.3 Nephritic appearing Urine - ? ATN vs AIN/ Pyelo - await Urine culture Hypotension - off of pressors - suspect asso with Sepsis from CDiff Met. Acidosis (with Lactic Acdemia ) - now some better with IVF with bicarb. suspect due to colitis too Anemia: may need Epogen. ? Transfuse as needed NSTEMI - no Arrhythmia or Angina currently - discussed with Dr Oneal - We would like to hold off of [facility] for now until Creat settles. CHF on CXR - will stop IVF for now - recehck CXR - hold lasix unless worsening of CHF on CXR. Clnically looks OK Low K - replace with K PHos x 1 then KCL; Mag is OK Low PHos - K PHos x 1 Discussed Plan of Care and prognosis etc. at length with family - they agree to hold off of [facility] for now COMMENT/RELEVANT DATA Meds Current Medications Medications (Trade) Dose Ordered Sig/Kyle Start Time Stop Time Status Last Admin Dose Admin Acetaminophen (Tylenol) 325 mg PRN QID PRN 08/04/16 09:30 Acetaminophen 1000 mg 1,000 mg 1X ONCE 08/03/16 20:00 08/03/16 20:01 DC 08/03/16 20:02 1,000 MG Acetaminophen 650 mg 650 mg PRN Q4HRS PRN 08/03/16 21:15 08/04/16 21:14 DC 08/04/16 10:51 650 MG Acetaminophen/ Codeine Phosphate (Tylenol #3) 1 tab PRN BID PRN 08/04/16 09:30 Acetylcysteine (Mucomyst 20% Oral Solution) 1,200 mg BID 08/04/16 21:00 08/06/16 20:59 08/06/16 09:21 1,200 MG Albuterol Sulfate 2.5 mg 2.5 mg 1X ONCE 08/04/16 12:30 08/04/16 12:31 DC 08/04/16 12:29 2.5 MG Amitriptyline HCl (Elavil) 25 mg HS 08/04/16 21:00 08/05/16 21:40 25 MG Amlodipine Besylate (Norvasc) 5 mg DAILY 08/04/16 10:30 08/05/16 09:21 DC 08/04/16 10:52 5 MG Anastrozole (Arimidex) 1 mg DAILY 08/04/16 10:30 08/06/16 09:24 1 MG Aspirin (Ecotrin) 81 mg DAILY 08/04/16 10:30 08/06/16 09:26 81 MG Aspirin 325 mg 325 mg 1X ONCE 08/04/16 13:00 08/04/16 13:01 DC 08/04/16 15:26 325 MG Atorvastatin Calcium (Lipitor) 10 mg QHS 08/05/16 21:00 2/3/17 21:40 10 MG Ceftriaxone Sodium 50 ml @ 100 mls/hr 1X ONCE 08/03/16 21:00 08/03/16 21:29 DC 08/03/16 22:07 100 MLS/HR Clopidogrel Bisulfate (Plavix) 75 mg DAILY 08/04/16 10:30 08/06/16 09:26 75 MG Dextrose 12.5 gm PRN Q15MIN PRN 08/05/16 18:30 Fluconazole/ Sodium Chloride (Diflucan 200mg/ 100ml Premix) 100 ml @ 100 mls/hr Q24H 08/04/16 10:00 08/05/16 07:47 DC 08/04/16 15:17 100 MLS/HR Furosemide (Lasix) 40 mg 1X ONCE 08/04/16 13:00 08/04/16 13:01 DC 08/04/16 13:12 40 MG Furosemide 40 mg 40 mg DAILY 08/04/16 15:00 08/06/16 09:22 40 MG Heparin Sodium (Porcine) 1,600 unit PRN Q6HRS PRN 08/04/16 12:45 Heparin Sodium/ Dextrose 500 ml @ 0 mls/hr CONT PRN 08/04/16 12:45 08/05/16 17:44 23.8 MLS/HR Info (Anti-Coagulation Monitoring By Pharmacy) 1 each PRN DAILY PRN 08/04/16 12:45 Insulin Aspart (Novolog) 7 units 1X ONCE 08/05/16 18:45 08/05/16 18:46 DC 08/05/16 21:42 7 UNITS Insulin Aspart 10 units 10 units 1X ONCE 08/04/16 23:00 08/04/16 23:01 DC 08/04/16 22:55 10 UNITS Insulin Detemir (Levemir) 10 units 1X ONCE 08/05/16 18:30 08/05/16 18:31 DC 08/05/16 21:42 10 UNITS Insulin Detemir 20 units 20 units DAILY@18 08/04/16 18:00 08/05/16 18:23 DC 08/05/16 18:03 20 UNITS Levothyroxine Sodium (Synthroid) 50 mcg DAILY07 08/04/16 10:30 08/06/16 09:22 50 MCG Linagliptin (Tradjenta) 5 mg DAILY 08/04/16 10:30 08/06/16 09:27 5 MG Lisinopril (Prinivil) 2.5 mg DAILY 08/04/16 10:30 08/04/16 15:22 DC 08/04/16 10:51 2.5 MG Lisinopril 2.5 mg 2.5 mg DAILY 08/05/16 09:15 Magnesium Sulfate/ Dextrose 50 ml @ 25 mls/hr PRN DAILY PRN 08/05/16 10:45 Metoprolol Tartrate (Lopressor) 12.5 mg BID 08/05/16 09:15 Norepinephrine Bitartrate/Sodium Chloride (Levophed Vial/ Iv Sodium Chloride 0.9% 250ml) 258 ml @ 0 mls/hr CONT PRN 08/04/16 15:00 Ondansetron HCl (Zofran) 4 mg PRN Q8HRS PRN 08/03/16 21:15 08/04/16 21:14 DC Pantoprazole Sodium (Protonix) 40 mg DAILYAC 08/04/16 10:30 08/06/16 09:22 40 MG Piperacillin Sod/ Tazobactam Sod 3.375 gm/Sodium Chloride 50 ml @ 100 mls/hr Q6HRS 08/04/16 10:00 08/06/16 06:04 100 MLS/HR Potassium Acetate 20 meq/Sodium Chloride 110 ml @ 55 mls/hr Q2H 08/05/16 11:00 08/05/16 14:59 DC 08/05/16 11:59 55 MLS/HR Potassium Acetate/ Sodium Chloride (Iv Sodium Chloride 0.9% 100ml) 110 ml @ 55 mls/hr Q2H 08/05/16 17:00 08/05/16 20:59 DC 08/05/16 21:40 55 MLS/HR Potassium Chloride 50 ml @ 50 mls/hr PRN Q2HR PRN 08/05/16 10:45 Potassium Chloride (KCl Premix 20meq) 50 ml @ 50 mls/hr Q1H 08/05/16 09:00 08/05/16 10:59 DC Pregabalin (Lyrica) 50 mg BID 08/04/16 10:30 08/06/16 09:27 50 MG Silver Sulfadiazine (Silvadene) 1 opal DAILY 08/04/16 10:30 08/05/16 10:42 1 OPAL Sodium Bicarbonate/ Sodium Chloride (Iv Sodium Chloride 0.45%) 1,075 ml @ 100 mls/hr [id number] 08/04/16 18:00 08/06/16 03:19 DC 08/05/16 04:45 100 MLS/HR Sodium Chloride 1,000 ml @ 495 mls/hr Q2H2M 08/04/16 15:30 08/04/16 19:30 DC 08/04/16 15:30 495 MLS/HR Sodium Chloride (Iv Sodium Chloride 0.9% 500ml Bag) 500 ml @ 500 mls/hr 1X ONCE 08/03/16 21:30 08/03/16 22:29 DC 08/03/16 23:20 500 MLS/HR Sodium Chloride (Iv Sodium Chloride 0.9% 1000ml Bag) 1,000 ml @ 100 mls/hr Q10H 08/04/16 10:30 08/05/16 09:21 DC Vancomycin HCl 125 mg 125 mg [id number] 08/04/16 17:00 08/05/16 08:03 DC Vancomycin HCl 1 each 1 each PRN DAILY PRN 08/04/16 09:15 08/05/16 08:02 DC 08/04/16 13:22 1 EACH Vancomycin HCl/ Sodium Chloride (Iv Sodium Chloride 0.9% 250ml) 250 ml @ 167 mls/hr Q24H 08/05/16 11:00 08/05/16 11:00 DC Vancomycin HCl/ Sodium Chloride (Iv Sodium Chloride 0.9% 500ml Bag) 500 ml @ 250 mls/hr 1X ONCE 08/04/16 09:30 08/04/16 11:29 DC 08/04/16 10:54 250 MLS/HR Lab Laboratory Tests Test 08/05/16 14:36 08/05/16 17:41 08/05/16 21:38 08/05/16 22:00 Heparin Anti-Xa Act, Unfractionated 0.27IU/mL (0.30-0.70) Glucose (Fingerstick) 312mg/dL (70-99) 338mg/dL (70-99) White Blood Count 7.9x10^3/uL (4.0-11.0) Red Blood Count 2.83x10^6/uL (3.50-5.40) Hemoglobin 7.8g/dL (12.0-15.5) Hematocrit 23.5% (36.0-47.0) Mean Corpuscular Volume 83fL (79-100) Mean Corpuscular Hemoglobin 28pg (25-35) Mean Corpuscular Hemoglobin Concent 33g/dL (31-37) Red Cell Distribution Width 15.6% (11.5-14.5) Platelet Count 165x10^3/uL (140-400) Potassium Level 3.4mmol/L (3.5-5.1) Test 08/06/16 00:20 08/06/16 06:25 08/06/16 08:37 08/06/16 09:30 Heparin Anti-Xa Act, Unfractionated 0.36IU/mL (0.30-0.70) 0.33IU/mL (0.30-0.70) White Blood Count 9.4x10^3/uL (4.0-11.0) Red Blood Count 2.80x10^6/uL (3.50-5.40) Hemoglobin 7.6g/dL (12.0-15.5) Hematocrit 23.2% (36.0-47.0) Mean Corpuscular Volume 83fL (79-100) Mean Corpuscular Hemoglobin 27pg (25-35) Mean Corpuscular Hemoglobin Concent 33g/dL (31-37) Red Cell Distribution Width 15.7% (11.5-14.5) Platelet Count 164x10^3/uL (140-400) Neutrophils (%) (Auto) 82% (31-73) Lymphocytes (%) (Auto) 8% (24-48) Monocytes (%) (Auto) 6% (0-9) Eosinophils (%) (Auto) 4% (0-3) Basophils (%) (Auto) 1% (0-3) Neutrophils # (Auto) 7.7x10^3uL (1.8-7.7) Lymphocytes # (Auto) 0.7x10^3/uL (1.0-4.8) Monocytes # (Auto) 0.6x10^3/uL (0.0-1.1) Eosinophils # (Auto) 0.3x10^3/uL (0.0-0.7) Basophils # (Auto) 0.1x10^3/uL (0.0-0.2) Sodium Level 139mmol/L (136-145) Potassium Level 3.2mmol/L (3.5-5.1) Chloride Level 108mmol/L (98-107) Carbon Dioxide Level 21mmol/L (21-32) Anion Gap 10 (6-14) Blood Urea Nitrogen 32mg/dL (7-20) Creatinine 1.6mg/dL (0.6-1.0) Estimated GFR (Cockcroft-Gault) 30.7 Glucose Level 139mg/dL (70-99) Calcium Level 7.8mg/dL (8.5-10.1) Phosphorus Level 2.3mg/dL (2.6-4.7) Magnesium Level 2.3mg/dL (1.8-2.4) Albumin 1.9g/dL (3.4-5.0) Glucose (Fingerstick) 125mg/dL (70-99) RAMIN MALDONADO MD Aug 06, 2016 12:23
[2016-08-06] MEDS ORDERED: POTASSIUM ACETATE IV SCH (12:30)
[2016-08-06] MEDS ORDERED: SODIUM BICARBONATE IV SCH (12:30)
[2016-08-06] MEDS ORDERED: [UNRECOGNIZED DRUG - OTHER] IV SCH (12:30)
[2016-08-06] MEDS: LACTOBACILLUS ACIDOPH & BULGAR 1 TABLET. PO SCH ×2 (12:30→17:31)
--- NOTE | 2016-08-06 13:22 | RAD ---
AP portable chest radiograph 08/06/2016 Clinical History: CHF. An AP portable erect digital radiograph of the chest was obtained. Comparison study is dated 08/05/2016. A right arm PICC is unchanged position. The cardiac silhouette is mildly enlarged. The thoracic aorta is tortuous. Atherosclerotic calcification of the thoracic aorta is seen. Mild to moderate congestive changes are seen involving both lungs essentially unchanged. Improving left lower lobe atelectasis and/or infiltrate is noted. Increasing right lower lobe atelectasis and/or infiltrate is seen. No pleural effusion or pneumothorax is noted. The osseous structures are unchanged. Impression: 1. Findings consistent with CHF, unchanged. 2. Improving left lower lobe atelectasis and/or infiltrate. Increasing right lower lobe atelectasis and/or infiltrate.
[2016-08-06] MEDS: ANTI-COAG MONITOR BY PHARMACY. MC PRN (13:27)
--- NOTE | 2016-08-06 14:01 | PDOC ---
PROGRESS NOTES Subjective Subjective pt feels better ,still has loose stools Objective Objective Vital Signs Date Time Temp Pulse Resp B/P Pulse Ox O2 Delivery O2 Flow Rate FiO2 08/06/16 12:00 76 28 99/63 98 Room Air 08/06/16 11:00 98.5 4.0 98.5 Intake and Output 08/06/16 07:00 Intake Total 2370 ml Output Total 1325 ml Balance 1045 ml Intake Oral 1100 ml IV Total 455 ml Other 815 ml Output Urine Total 1325 ml # Bowel Movements 4 Physical Exam Abdomen: Soft, No tenderness Heart: Regular rate, Normal S1, Normal S2, Other (palpable femoral pulses bilaterally) Extremities: Other (the patient has a wound vac in place. Photo taken yesterday of the wound shows a stable wound. There is no surrounding erythema.) General: Alert HEENT: Atraumatic, Mucous membr. moist/pink Lungs: Other (diffuse crackles with faint wheeze) MUSCULOSKELETAL: Osteoarthritic changes both hands Neuro: Normal speech, Sensation intact Psych/Mental Status: Mood NL Skin: Other (left fifth toe open amputation with some areas of fibrin and dusky tissue, foot warm, unable to palpate DP pulse) Diagnosis Problem List Problems Medical Problems: (1) NSTEMI (non-ST elevated myocardial infarction) Status: Acute (2) Sepsis Status: Acute (3) Urinary tract infection Status: Acute Assessment Assessment Problems Medical Problems: (1) NSTEMI (non-ST elevated myocardial infarction) Status: Acute (2) Sepsis Status: Acute (3) Urinary tract infection Status: Acute FINAL IMPRESSION: chf Acute [place] -non Stemi. hypotension. C diff colitis 1. Febrile illness, temperature of 103. 2. Sepsis, could be line infection. The patient has a PICC line in the right arm, could be Clostridium difficile colitis. 3. Diabetes, insulin dependent. 4. Hypothyroidism. 5. Peripheral vascular disease, bypass to both lower extremities. 6. Recent amputation of the left fifth toe for osteomyelitis, has open wound to heal. 7. Breast carcinoma, left mastectomy. 8. Anemia of chronic disease. 9. Protein-calorie malnutrition, mild to moderate. PLAN: po vancomycin troponin elevated to 9.0 cardiac cath monday on heparin drip. cardiac cath once stable Off Levophed for hypotension. Oral avnco for c diff Zosyn for uti, on hold pot 3.2 replace cr 1.6 cxr chf. Problems: Plan Plan of Care Problems Medical Problems: (1) NSTEMI (non-ST elevated myocardial infarction) Status: Acute (2) Sepsis Status: Acute (3) Urinary tract infection Status: Acute Comment Review of Relevant I have reviewed the following items kathleen (where applicable) has been applied. Labs Laboratory Tests Test 08/05/16 14:36 08/05/16 17:41 08/05/16 21:38 08/05/16 22:00 Heparin Anti-Xa Act, Unfractionated 0.27IU/mL (0.30-0.70) Glucose (Fingerstick) 312mg/dL (70-99) 338mg/dL (70-99) White Blood Count 7.9x10^3/uL (4.0-11.0) Red Blood Count 2.83x10^6/uL (3.50-5.40) Hemoglobin 7.8g/dL (12.0-15.5) Hematocrit 23.5% (36.0-47.0) Mean Corpuscular Volume 83fL (79-100) Mean Corpuscular Hemoglobin 28pg (25-35) Mean Corpuscular Hemoglobin Concent 33g/dL (31-37) Red Cell Distribution Width 15.6% (11.5-14.5) Platelet Count 165x10^3/uL (140-400) Potassium Level 3.4mmol/L (3.5-5.1) Test 08/06/16 00:20 08/06/16 06:25 08/06/16 08:37 08/06/16 09:30 Heparin Anti-Xa Act, Unfractionated 0.36IU/mL (0.30-0.70) 0.33IU/mL (0.30-0.70) White Blood Count 9.4x10^3/uL (4.0-11.0) Red Blood Count 2.80x10^6/uL (3.50-5.40) Hemoglobin 7.6g/dL (12.0-15.5) Hematocrit 23.2% (36.0-47.0) Mean Corpuscular Volume 83fL (79-100) Mean Corpuscular Hemoglobin 27pg (25-35) Mean Corpuscular Hemoglobin Concent 33g/dL (31-37) Red Cell Distribution Width 15.7% (11.5-14.5) Platelet Count 164x10^3/uL (140-400) Neutrophils (%) (Auto) 82% (31-73) Lymphocytes (%) (Auto) 8% (24-48) Monocytes (%) (Auto) 6% (0-9) Eosinophils (%) (Auto) 4% (0-3) Basophils (%) (Auto) 1% (0-3) Neutrophils # (Auto) 7.7x10^3uL (1.8-7.7) Lymphocytes # (Auto) 0.7x10^3/uL (1.0-4.8) Monocytes # (Auto) 0.6x10^3/uL (0.0-1.1) Eosinophils # (Auto) 0.3x10^3/uL (0.0-0.7) Basophils # (Auto) 0.1x10^3/uL (0.0-0.2) Sodium Level 139mmol/L (136-145) Potassium Level 3.2mmol/L (3.5-5.1) Chloride Level 108mmol/L (98-107) Carbon Dioxide Level 21mmol/L (21-32) Anion Gap 10 (6-14) Blood Urea Nitrogen 32mg/dL (7-20) Creatinine 1.6mg/dL (0.6-1.0) Estimated GFR (Cockcroft-Gault) 30.7 Glucose Level 139mg/dL (70-99) Calcium Level 7.8mg/dL (8.5-10.1) Phosphorus Level 2.3mg/dL (2.6-4.7) Magnesium Level 2.3mg/dL (1.8-2.4) Albumin 1.9g/dL (3.4-5.0) Glucose (Fingerstick) 125mg/dL (70-99) Test 08/06/16 12:21 Glucose (Fingerstick) 222mg/dL (70-99) Microbiology 08/04/16 Blood Culture - Preliminary, Resulted NO GROWTH AFTER 2 DAYS 08/04/16 Gram Stain - Final, Complete Medications Current Medications Atorvastatin Calcium 10 mg 10 mg QHS PO Last administered on 08/05/16t 21:40; Start 08/05/16 at 21:00 Dextrose 12.5 gm PRN Q15MIN PRN IV SEE COMMENTS; Start 08/05/16 at 18:30 Insulin Aspart (Novolog) 0-7 UNITS TIDWMEALS SQ Last administered on 08/06/16 12:28; Start 08/06/16 at 08:00 Insulin Aspart (Novolog) 7 units 1X ONCE SQ Last administered on 08/05/16 21: 42; Start 08/05/16 at 18:45; Stop 08/05/16 at 18:46; Status DC Insulin Detemir (Levemir) 10 units 1X ONCE SQ Last administered on 08/05/16 21 :42; Start 08/05/16 at 18:30; Stop 08/05/16 at 18:31; Status DC Insulin Detemir (Levemir) 30 units DAILY@18 SQ ; Start 08/05/16 at 18:00 Lactobacillus Acidophilus 1 tab 1 tab TIDWMEALS PO ; Start 08/06/16 at 12:30 Potassium Phosphate 13.6 mmol/Sodium Chloride 104.5333 ml @ 52.267 m... Q2H IV ; Start 08/06/16 at 13:00; Stop 08/06/16 at 18:59 Potassium Acetate/ Sodium Chloride (Iv Sodium Chloride 0.9% 100ml) 110 ml @ 55 mls/hr Q2H IV Last administered on 08/05/16 21:40; Start 08/05/16 at 17:00; Stop 08/05/16 at 20:59; Status DC Sodium Bicarbonate/ Potassium Acetate/ Sodium Chloride (Iv Sodium Chloride 0.45% ) 1,070 ml @ 75 mls/hr [id number] IV ; Start 08/06/16 at 12:30; Stop 08/06/16 at 12: 30; Status DC Vancomycin HCl 1 each 1X ONCE MC ; Start 08/06/16 at 10:30; Stop 08/06/16 at 10: 30; Status DC Vitals/I & O Vital Sign - Last 24 Hours 08/05/16 08/05/16 08/05/16 08/05/16 14:00 15:00 16:00 16:00 Temp 97.5 97.5 Pulse 86 83 81 Resp 18 23 21 B/P 126/58 117/64 92/47 Pulse Ox 99 100 99 O2 Delivery Nasal Cannula Nasal Cannula Nasal Cannula Nasal Cannula O2 Flow Rate 4.0 4.0 4.0 4.0 08/05/16 08/05/16 08/05/16 08/05/16 17:00 18:00 19:00 20:00 Temp 99.2 99.2 Pulse 86 89 86 84 Resp 18 18 20 25 B/P 102/42 136/63 115/51 119/50 Pulse Ox 96 97 99 98 O2 Delivery Nasal Cannula Nasal Cannula Nasal Cannula Nasal Cannula O2 Flow Rate 4.0 4.0 4.0 4.0 08/05/16 08/05/16 08/05/16 08/05/16 20:00 21:00 21:00 22:00 Pulse 82 84 88 Resp B/P 113/46 104/50 113/46 Pulse Ox 98 99 O2 Delivery Nasal Cannula Nasal Cannula Nasal Cannula O2 Flow Rate 4.0 4.0 4.0 08/05/16 08/06/16 08/06/16 08/06/16 23:00 00:00 00:00 01:00 Temp 100.2 100.2 Pulse 84 84 82 Resp 20 B/P 113/48 119/51 124/49 Pulse Ox 100 97 98 O2 Delivery Nasal Cannula Nasal Cannula Nasal Cannula Nasal Cannula O2 Flow Rate 4.0 4.0 4.0 4.0 08/06/16 08/06/16 08/06/16 08/06/16 02:00 03:00 04:00 04:00 Temp 99.4 99.4 Pulse 88 79 83 Resp 23 B/P 97/46 112/49 106/45 Pulse Ox 99 99 98 O2 Delivery Nasal Cannula Nasal Cannula Nasal Cannula Nasal Cannula O2 Flow Rate 4.0 4.0 4.0 4.0 08/06/16 08/06/16 08/06/16 08/06/16 05:00 06:00 07:00 08:00 Temp 98.8 98.8 Pulse 82 80 82 82 Resp 26 19 19 18 B/P 106/40 95/53 114/47 115/49 Pulse Ox 99 100 98 98 O2 Delivery Nasal Cannula Nasal Cannula Nasal Cannula Nasal Cannula O2 Flow Rate 4.0 4.0 4.0 4.0 08/06/16 08/06/16 08/06/16 08/06/16 09:00 10:00 11:00 12:00 Temp 98.5 98.5 Pulse 82 82 78 76 Resp 16 18 24 28 B/P 137/66 104/53 100/52 99/63 Pulse Ox 96 98 99 98 O2 Delivery Nasal Cannula Nasal Cannula Nasal Cannula Room Air O2 Flow Rate 4.0 4.0 4.0 Intake and Output 08/05/16 08/05/16 08/06/16 15:00 23:00 07:00 Intake Total 655 ml 500 ml 1215 ml Output Total 340 ml 535 ml 450 ml Balance 315 ml -35 ml 765 ml JAMES CORCORAN MD Aug 06, 2016 14:01
[2016-08-06] MEDS: POTASSIUM PHOSPHATE DIBASIC 13.6 MMOL in IV NORMAL SALINE 100ML 100 ML IV SCH ×3 (14:35→18:59)
[2016-08-06] MEDS: HEPARIN 25,000UTS/500ML PREMIX 500 ML IV PRN (17:14)
[2016-08-06] MEDS: INSULIN DETEMIR 300 UNITS/3 ML INSULN.PEN. SQ SCH (17:37)
[2016-08-06] MEDS: AMITRIPTYLINE HCL 25 MG TABLET PO SCH (21:17)
[2016-08-06] MEDS: ATORVASTATIN CALCIUM 10 MG TABLET. PO SCH (21:17)
[2016-08-07] VITALS (23 sets, daily range): BP systolic 124–166; BP diastolic 51–76
[2016-08-07 05:41] LABS: BASO % 1 % (0-3); EOS % 4 % (0-3); LYMPH # 0.9 x10^3/uL (1.0-4.8); LYMPH % 14 % (24-48); MEAN CORPUSCULAR HEMOGLOBIN 27 pg (25-35); MEAN CORPUSCULAR HGB CONC 33 g/dL (31-37); MEAN CORPUSCULAR VOLUME 82 fL (79-100); MONO % 9 % (0-9); NEUT % 72 % (31-73); PLATELET COUNT 175 x10^3/uL (140-400); RED BLOOD COUNT 2.56 x10^6/uL (3.50-5.40); RED CELL DISTRIBUTION WIDTH 16.1 % (11.5-14.5); WHITE BLOOD COUNT 6.2 x10^3/uL (4.0-11.0)
[2016-08-07 05:45] LABS: HEMOGLOBIN 6.9 g/dL (12.0-15.5)
[2016-08-07 06:03] LABS: ALBUMIN 1.8 g/dL (3.4-5.0); CALCIUM 7.9 mg/dL (8.5-10.1); CREATININE 1.2 mg/dL (0.6-1.0); GFR 42.8; PHOSPHORUS 3.8 mg/dL (2.6-4.7); POTASSIUM 3.8 mmol/L (3.5-5.1)
[2016-08-07] MEDS: INSULIN ASPART 300 UNITS/3 ML INSULN.PEN SQ SCH ×6 (08:00→17:24)
[2016-08-07] MEDS ORDERED: FUROSEMIDE 20 MG/2 ML VIAL IVP ONE (08:00)
--- NOTE | 2016-08-07 08:14 | PDOC ---
Infectious Disease Note Subjective Subjective No fever last 24 hours BP stable, off pressors + diarrhea. 5 episodes through night Vital Sign Vital Signs Vital Signs Date Time Temp Pulse Resp B/P Pulse Ox O2 Delivery O2 Flow Rate FiO2 08/07/16 07:00 78 19 124/61 97 Nasal Cannula 2.0 08/07/16 04:00 99.2 99.2 Physical Exam PHYSICAL EXAM GENERAL: Resting quietly, NAD HEENT: Oral cavity pink and dry NECK: Supple LUNGS: Clear HEART: S1S2 ABD: BS present, soft, NT : Simpson EXT: Left foot trace edema w/ wound vac in place; no redness. SKIN: No rash RUE-PICC. clean Labs Lab Laboratory Tests Test 08/06/16 08:37 08/06/16 09:30 08/06/16 12:21 08/06/16 17:29 Glucose (Fingerstick) 125mg/dL (70-99) 222mg/dL (70-99) 208mg/dL (70-99) Heparin Anti-Xa Act, Unfractionated 0.33IU/mL (0.30-0.70) Test 08/06/16 21:54 08/07/16 05:20 Glucose (Fingerstick) 171mg/dL (70-99) White Blood Count 6.2x10^3/uL (4.0-11.0) Red Blood Count 2.56x10^6/uL (3.50-5.40) Hemoglobin 6.9g/dL (12.0-15.5) Hematocrit 21.0% (36.0-47.0) Mean Corpuscular Volume 82fL (79-100) Mean Corpuscular Hemoglobin 27pg (25-35) Mean Corpuscular Hemoglobin Concent 33g/dL (31-37) Red Cell Distribution Width 16.1% (11.5-14.5) Platelet Count 175x10^3/uL (140-400) Neutrophils (%) (Auto) 72% (31-73) Lymphocytes (%) (Auto) 14% (24-48) Monocytes (%) (Auto) 9% (0-9) Eosinophils (%) (Auto) 4% (0-3) Basophils (%) (Auto) 1% (0-3) Neutrophils # (Auto) 4.5x10^3uL (1.8-7.7) Lymphocytes # (Auto) 0.9x10^3/uL (1.0-4.8) Monocytes # (Auto) 0.5x10^3/uL (0.0-1.1) Eosinophils # (Auto) 0.3x10^3/uL (0.0-0.7) Basophils # (Auto) 0.0x10^3/uL (0.0-0.2) Sodium Level 143mmol/L (136-145) Potassium Level 3.8mmol/L (3.5-5.1) Chloride Level 111mmol/L (98-107) Carbon Dioxide Level 24mmol/L (21-32) Anion Gap 8 (6-14) Blood Urea Nitrogen 25mg/dL (7-20) Creatinine 1.2mg/dL (0.6-1.0) Estimated GFR (Cockcroft-Gault) 42.8 Glucose Level 109mg/dL (70-99) Calcium Level 7.9mg/dL (8.5-10.1) Phosphorus Level 3.8mg/dL (2.6-4.7) Magnesium Level 1.9mg/dL (1.8-2.4) Albumin 1.8g/dL (3.4-5.0) Micro BLOOD CULTURE Preliminary NO GROWTH AFTER 2 DAY Foot GRAM STAIN Final WBCS MANY RBCS MANY GRAM NEGATIVE RODS OCCASIONAL YEAST OCCASIONAL ANAEROBIC-AEROBIC CULTURE Preliminary Preliminary report ANAEROBIC RES 1 Preliminary Comment No anaerobes recovered in 48 hours. AEROBIC CULT Final Final report AEROBIC RES 1 Final Yeast isolated. URINE CULTURE RES 1 Preliminary Yeast isolated. 50,000-100,000 colony forming units per mL Objective Assessment Fever, better Leukocytosis, improved Left foot wound /osteo. GNR and yeast on GS on Aug 04. CX: yeast -h/o PSA -s/p left fifth toe open amputation with wound vac, 07/25 C diff. 2/2. DM w/ peripheral neuropathy PVD. s/p failed LLE bypass graft IGOR Anemia NSTEMI CHF on x-ray Yeast in urine Plan Plan of Care Cont po vanc Probiotics Add Fluconazole for a few doses Hold Zosyn Blood transfusion underway f/u cultures Supportive care D/w family Attending Co-Sign Attending Co-Sign The patient was seen and interviewed as well as examined at the bedside. The chart was reviewed. The case was discussed. Agree with the plan of care. ARMAAN NGUYEN APRN Aug 07, 2016 08:14 CHRISTINE CARL MD Aug 07, 2016 11:57
[2016-08-07] MEDS: ANASTROZOLE 1 MG TABLET PO SCH (08:34)
[2016-08-07] MEDS: LACTOBACILLUS ACIDOPH & BULGAR 1 TABLET. PO SCH ×3 (08:38→17:18)
[2016-08-07] MEDS: VANCOMYCIN 125 MG/2.5 ML ORAL SOLUTION. PO SCH ×4 (08:38→21:04)
[2016-08-07] MEDS: PANTOPRAZOLE 40 MG TABLET. PO SCH (08:40)
[2016-08-07] MEDS: LEVOTHYROXINE 50 MCG TABLET PO SCH (08:40)
[2016-08-07] MEDS: METOPROLOL TART IMMED RELEASE 25 MG TABLET PO SCH ×2 (08:40→21:05)
[2016-08-07] MEDS: ASPIRIN ENTERIC COATED 81 MG TABLET.DR. PO SCH (08:40)
[2016-08-07] MEDS: silver sulfADIAZINE 1% CREAM 25GM TUBE. TP SCH (08:41)
[2016-08-07] MEDS: LINAGLIPTIN 5 MG TABLET PO SCH (08:47)
[2016-08-07] MEDS: CLOPIDOGREL BISULFATE 75 MG TABLET PO SCH (08:47)
[2016-08-07] MEDS: LISINOPRIL 2.5 MG TABLET PO SCH (08:47)
[2016-08-07] MEDS: PREGABALIN 50 MG CAPSULE PO SCH ×2 (08:48→21:04)
--- NOTE | 2016-08-07 10:34 | PDOC ---
SUBJECTIVE ROS IGOR / ATN Doing OK OVerall CVS: no Orthopnea, no CP RESP: no SOB, no ORDAZ GI: no Nausea, no Vomiting : no Dysuria, no Urgency OBJECTIVE Vital Signs Vital Signs Date Time Temp Pulse Resp B/P Pulse Ox O2 Delivery O2 Flow Rate FiO2 08/07/16 10:00 98.6 80 20 137/56 97 Nasal Cannula 2.0 98.6 I & 0 Intake and Output 08/07/16 07:00 Intake Total 2916 ml Output Total 2280 ml Balance 636 ml Intake Oral 1030 ml Other 1886 ml Output Urine Total 2280 ml # Bowel Movements 5 PHYSICAL EXAM Physical Exam General Appearance: Awake Alert Oriented x 3 In no Distress Eyes: VIsion Unchanged Conjunctiva Normal EN: No EN Drainage Mucous Memb. moist Neck: no JVD min JVP Supple no Thyromegaly CVS: S1 S2 soft Murmur No Gallop No Rub no Edema Resp: few basal Rales no Rhonchi no Acc. Muscle use GI: BS +ve NO Bruit min Tender on the Rt Side Non Distended : no CVA tenderness; no Suprapubic Tenderness Assessment & Plan ARF/ ATN: Suspect after Rapid Response. Creat is better. Current FLuid and E- lyte status does not necessitate emergent need for Dialysis. Will re-evaluate for Dialysis in am - suspect ^ed CK is due to NSTEMI - doubt Rhabdo; Diarrhea is slowing down ? CKD III - baseline creat 1.1 - 1.3 - Creat is back to baseline today (? After IVF) Nephritic appearing Urine - Culture noted Met. Acidosis -resolved Anemia: Transfuse as planned today NSTEMI - LHC in am - No IVF ordered due to CHF on CXR CHF on CXR - No IVF, BT as Planned for Vol Expansion, Lasix as planned. Resume scheduled lasix 48-hrs post Cath Low K - replaced Low PHos -replaced Discussed Plan of Care and prognosis etc. at length with family COMMENT/RELEVANT DATA Meds Current Medications Medications (Trade) Dose Ordered Sig/Kyle Start Time Stop Time Status Last Admin Dose Admin Acetaminophen (Tylenol) 325 mg PRN QID PRN 08/04/16 09:30 Acetaminophen 1000 mg 1,000 mg 1X ONCE 08/03/16 20:00 08/03/16 20:01 DC 08/03/16 20:02 1,000 MG Acetaminophen 650 mg 650 mg PRN Q4HRS PRN 08/03/16 21:15 08/04/16 21:14 DC 08/04/16 10:51 650 MG Acetaminophen/ Codeine Phosphate (Tylenol #3) 1 tab PRN BID PRN 08/04/16 09:30 Acetylcysteine (Mucomyst 20% Oral Solution) 1,200 mg BID 08/04/16 21:00 08/06/16 20:59 DC 08/06/16 09:21 1,200 MG Albuterol Sulfate 2.5 mg 2.5 mg 1X ONCE 08/04/16 12:30 08/04/16 12:31 DC 08/04/16 12:29 2.5 MG Amitriptyline HCl (Elavil) 25 mg HS 08/04/16 21:00 08/06/16 21:17 25 MG Amlodipine Besylate (Norvasc) 5 mg DAILY 08/04/16 10:30 08/05/16 09:21 DC 08/04/16 10:52 5 MG Anastrozole (Arimidex) 1 mg DAILY 08/04/16 10:30 08/07/16 08:34 1 MG Aspirin (Ecotrin) 81 mg DAILY 08/04/16 10:30 08/07/16 08:40 81 MG Aspirin 325 mg 325 mg 1X ONCE 08/04/16 13:00 08/04/16 13:01 DC 08/04/16 15:26 325 MG Atorvastatin Calcium (Lipitor) 10 mg QHS 08/05/16 21:00 08/06/16 21:17 10 MG Ceftriaxone Sodium 50 ml @ 100 mls/hr 1X ONCE 08/03/16 21:00 08/03/16 21:29 DC 08/03/16 22:07 100 MLS/HR Clopidogrel Bisulfate (Plavix) 75 mg DAILY 08/04/16 10:30 08/07/16 08:47 75 MG Dextrose 12.5 gm PRN Q15MIN PRN 08/05/16 18:30 Fluconazole/ Sodium Chloride (Diflucan 200mg/ 100ml Premix) 100 ml @ 100 mls/hr Q24H 08/04/16 10:00 08/05/16 07:47 DC 08/04/16 15:17 100 MLS/HR Furosemide (Lasix) 20 mg 1X ONCE 08/07/16 08:00 08/07/16 08:01 DC Furosemide 40 mg 40 mg DAILY 08/04/16 15:00 08/06/16 12:13 DC 08/06/16 09:22 40 MG Heparin Sodium (Porcine) 1,600 unit PRN Q6HRS PRN 08/04/16 12:45 Heparin Sodium/ Dextrose 500 ml @ 0 mls/hr CONT PRN 08/04/16 12:45 08/06/16 17:14 23.8 MLS/HR Info (Anti-Coagulation Monitoring By Pharmacy) 1 each PRN DAILY PRN 08/04/16 12:45 08/06/16 13:27 1 EACH Insulin Aspart (Novolog) 7 units 1X ONCE 08/05/16 18:45 08/05/16 18:46 DC 08/05/16 21:42 7 UNITS Insulin Aspart 10 units 10 units 1X ONCE 08/04/16 23:00 08/04/16 23:01 DC 08/04/16 22:55 10 UNITS Insulin Detemir (Levemir) 10 units 1X ONCE 08/05/16 18:30 08/05/16 18:31 DC 08/05/16 21:42 10 UNITS Insulin Detemir 20 units 20 units DAILY@18 08/04/16 18:00 08/05/16 18:23 DC 08/05/16 18:03 20 UNITS Lactobacillus Acidophilus 1 tab 1 tab TIDWMEALS 08/06/16 12:30 08/07/16 08:38 1 TAB Levothyroxine Sodium (Synthroid) 50 mcg DAILY07 08/04/16 10:30 08/07/16 08:40 50 MCG Linagliptin (Tradjenta) 5 mg DAILY 08/04/16 10:30 08/07/16 08:47 5 MG Lisinopril (Prinivil) 2.5 mg DAILY 08/04/16 10:30 08/04/16 15:22 DC 08/04/16 10:51 2.5 MG Lisinopril 2.5 mg 2.5 mg DAILY 08/05/16 09:15 08/07/16 08:47 2.5 MG Magnesium Sulfate/ Dextrose 50 ml @ 25 mls/hr PRN DAILY PRN 08/05/16 10:45 Metoprolol Tartrate (Lopressor) 12.5 mg BID 08/05/16 09:15 08/07/16 08:40 12.5 MG Norepinephrine Bitartrate/Sodium Chloride (Levophed Vial/ Iv Sodium Chloride 0.9% 250ml) 258 ml @ 0 mls/hr CONT PRN 08/04/16 15:00 Ondansetron HCl (Zofran) 4 mg PRN Q8HRS PRN 08/03/16 21:15 08/04/16 21:14 DC Pantoprazole Sodium (Protonix) 40 mg DAILYAC 08/04/16 10:30 08/07/16 08:40 40 MG Piperacillin Sod/ Tazobactam Sod 3.375 gm/Sodium Chloride 50 ml @ 100 mls/hr Q6HRS 08/04/16 10:00 08/06/16 12:10 DC 08/06/16 06:04 100 MLS/HR Potassium Phosphate 13.6 mmol/Sodium Chloride 104.5333 ml @ 52.267 m... Q2H 08/06/16 13:00 08/06/16 18:59 DC 08/06/16 18:59 52.267 MLS/HR Potassium Acetate 20 meq/Sodium Chloride 110 ml @ 55 mls/hr Q2H 08/05/16 11:00 08/05/16 14:59 DC 08/05/16 11:59 55 MLS/HR Potassium Acetate/ Sodium Chloride (Iv Sodium Chloride 0.9% 100ml) 110 ml @ 55 mls/hr Q2H 08/05/16 17:00 08/05/16 20:59 DC 08/05/16 21:40 55 MLS/HR Potassium Chloride 50 ml @ 50 mls/hr PRN Q2HR PRN 08/05/16 10:45 Potassium Chloride (KCl Premix 20meq) 50 ml @ 50 mls/hr Q1H 08/05/16 09:00 08/05/16 10:59 DC Pregabalin (Lyrica) 50 mg BID 08/04/16 10:30 08/07/16 08:48 50 MG Silver Sulfadiazine (Silvadene) 1 opal DAILY 08/04/16 10:30 08/05/16 10:42 1 OPAL Sodium Bicarbonate/ Potassium Acetate/ Sodium Chloride (Iv Sodium Chloride 0.45%) 1,070 ml @ 75 mls/hr [id number] 08/06/16 12:30 08/06/16 12:30 DC Sodium Bicarbonate/ Sodium Chloride (Iv Sodium Chloride 0.45%) 1,075 ml @ 100 mls/hr [id number] 08/04/16 18:00 08/06/16 03:19 DC 08/05/16 04:45 100 MLS/HR Sodium Chloride 1,000 ml @ 495 mls/hr Q2H2M 08/04/16 15:30 08/04/16 19:30 DC 08/04/16 15:30 495 MLS/HR Sodium Chloride (Iv Sodium Chloride 0.9% 500ml Bag) 500 ml @ 500 mls/hr 1X ONCE 08/03/16 21:30 08/03/16 22:29 DC 08/03/16 23:20 500 MLS/HR Sodium Chloride (Iv Sodium Chloride 0.9% 1000ml Bag) 1,000 ml @ 100 mls/hr Q10H 08/04/16 10:30 08/05/16 09:21 DC Vancomycin HCl 125 mg 125 mg [id number] 08/04/16 17:00 08/05/16 08:03 DC Vancomycin HCl 1 each 1 each PRN DAILY PRN 08/04/16 09:15 08/05/16 08:02 DC 08/04/16 13:22 1 EACH Vancomycin HCl/ Sodium Chloride (Iv Sodium Chloride 0.9% 250ml) 250 ml @ 167 mls/hr Q24H 08/05/16 11:00 08/05/16 11:00 DC Vancomycin HCl/ Sodium Chloride (Iv Sodium Chloride 0.9% 500ml Bag) 500 ml @ 250 mls/hr 1X ONCE 08/04/16 09:30 08/04/16 11:29 DC 08/04/16 10:54 250 MLS/HR Lab Laboratory Tests Test 08/06/16 12:21 08/06/16 17:29 08/06/16 21:54 08/07/16 05:20 Glucose (Fingerstick) 222mg/dL (70-99) 208mg/dL (70-99) 171mg/dL (70-99) White Blood Count 6.2x10^3/uL (4.0-11.0) Red Blood Count 2.56x10^6/uL (3.50-5.40) Hemoglobin 6.9g/dL (12.0-15.5) Hematocrit 21.0% (36.0-47.0) Mean Corpuscular Volume 82fL (79-100) Mean Corpuscular Hemoglobin 27pg (25-35) Mean Corpuscular Hemoglobin Concent 33g/dL (31-37) Red Cell Distribution Width 16.1% (11.5-14.5) Platelet Count 175x10^3/uL (140-400) Neutrophils (%) (Auto) 72% (31-73) Lymphocytes (%) (Auto) 14% (24-48) Monocytes (%) (Auto) 9% (0-9) Eosinophils (%) (Auto) 4% (0-3) Basophils (%) (Auto) 1% (0-3) Neutrophils # (Auto) 4.5x10^3uL (1.8-7.7) Lymphocytes # (Auto) 0.9x10^3/uL (1.0-4.8) Monocytes # (Auto) 0.5x10^3/uL (0.0-1.1) Eosinophils # (Auto) 0.3x10^3/uL (0.0-0.7) Basophils # (Auto) 0.0x10^3/uL (0.0-0.2) Sodium Level 143mmol/L (136-145) Potassium Level 3.8mmol/L (3.5-5.1) Chloride Level 111mmol/L (98-107) Carbon Dioxide Level 24mmol/L (21-32) Anion Gap 8 (6-14) Blood Urea Nitrogen 25mg/dL (7-20) Creatinine 1.2mg/dL (0.6-1.0) Estimated GFR (Cockcroft-Gault) 42.8 Glucose Level 109mg/dL (70-99) Calcium Level 7.9mg/dL (8.5-10.1) Phosphorus Level 3.8mg/dL (2.6-4.7) Magnesium Level 1.9mg/dL (1.8-2.4) Albumin 1.8g/dL (3.4-5.0) RAMIN MALDONADO MD Aug 07, 2016 10:34
--- NOTE | 2016-08-07 10:53 | PDOC ---
PROGRESS NOTES Subjective Subjective 4 loose stools yesterday Objective Objective Vital Signs Date Time Temp Pulse Resp B/P Pulse Ox O2 Delivery O2 Flow Rate FiO2 08/07/16 10:45 98.6 79 21 142/67 98.6 08/07/16 10:00 97 Nasal Cannula 2.0 Intake and Output 08/07/16 07:00 Intake Total 2916 ml Output Total 2280 ml Balance 636 ml Intake Oral 1030 ml Other 1886 ml Output Urine Total 2280 ml # Bowel Movements 5 Physical Exam Abdomen: Soft, No tenderness Heart: Regular rate, Normal S1, Normal S2, Other (palpable femoral pulses bilaterally) Extremities: Other (the patient has a wound vac in place. Photo taken yesterday of the wound shows a stable wound. There is no surrounding erythema.) General: Alert HEENT: Atraumatic, Mucous membr. moist/pink Lungs: Other (diffuse crackles with faint wheeze) MUSCULOSKELETAL: Osteoarthritic changes both hands Neuro: Normal speech, Sensation intact Psych/Mental Status: Mood NL Skin: Other (left fifth toe open amputation with some areas of fibrin and dusky tissue, foot warm, unable to palpate DP pulse) Diagnosis Problem List Problems Medical Problems: (1) NSTEMI (non-ST elevated myocardial infarction) Status: Acute (2) Sepsis Status: Acute (3) Urinary tract infection Status: Acute Assessment Assessment Problems Medical Problems: (1) NSTEMI (non-ST elevated myocardial infarction) Status: Acute (2) Sepsis Status: Acute (3) Urinary tract infection Status: Acute FINAL IMPRESSION: anemia chf Acute CO -non Stemi. hypotension. C diff colitis 1. Febrile illness, temperature of 103. 2. Sepsis, could be line infection. The patient has a PICC line in the right arm, could be Clostridium difficile colitis. 3. Diabetes, insulin dependent. 4. Hypothyroidism. 5. Peripheral vascular disease, bypass to both lower extremities. 6. Recent amputation of the left fifth toe for osteomyelitis, has open wound to heal. 7. Breast carcinoma, left mastectomy. 8. Anemia of chronic disease. 9. Protein-calorie malnutrition, mild to moderate. PLAN: transfuse today for anemia hb 6.9 . po vancomycin+add questran powder 1 po bid troponin elevated to 9.0 cardiac cath monday on heparin drip. cardiac cath once stable Off Levophed for hypotension. Oral avnco for c diff uti-yeast pot 3.8 replaced cr 1.6 cxr chf. Problems: Plan Plan of Care Problems Medical Problems: (1) NSTEMI (non-ST elevated myocardial infarction) Status: Acute (2) Sepsis Status: Acute (3) Urinary tract infection Status: Acute Comment Review of Relevant I have reviewed the following items kathleen (where applicable) has been applied. Labs Laboratory Tests Test 08/06/16 12:21 08/06/16 17:29 08/06/16 21:54 08/07/16 05:20 Glucose (Fingerstick) 222mg/dL (70-99) 208mg/dL (70-99) 171mg/dL (70-99) White Blood Count 6.2x10^3/uL (4.0-11.0) Red Blood Count 2.56x10^6/uL (3.50-5.40) Hemoglobin 6.9g/dL (12.0-15.5) Hematocrit 21.0% (36.0-47.0) Mean Corpuscular Volume 82fL (79-100) Mean Corpuscular Hemoglobin 27pg (25-35) Mean Corpuscular Hemoglobin Concent 33g/dL (31-37) Red Cell Distribution Width 16.1% (11.5-14.5) Platelet Count 175x10^3/uL (140-400) Neutrophils (%) (Auto) 72% (31-73) Lymphocytes (%) (Auto) 14% (24-48) Monocytes (%) (Auto) 9% (0-9) Eosinophils (%) (Auto) 4% (0-3) Basophils (%) (Auto) 1% (0-3) Neutrophils # (Auto) 4.5x10^3uL (1.8-7.7) Lymphocytes # (Auto) 0.9x10^3/uL (1.0-4.8) Monocytes # (Auto) 0.5x10^3/uL (0.0-1.1) Eosinophils # (Auto) 0.3x10^3/uL (0.0-0.7) Basophils # (Auto) 0.0x10^3/uL (0.0-0.2) Sodium Level 143mmol/L (136-145) Potassium Level 3.8mmol/L (3.5-5.1) Chloride Level 111mmol/L (98-107) Carbon Dioxide Level 24mmol/L (21-32) Anion Gap 8 (6-14) Blood Urea Nitrogen 25mg/dL (7-20) Creatinine 1.2mg/dL (0.6-1.0) Estimated GFR (Cockcroft-Gault) 42.8 Glucose Level 109mg/dL (70-99) Calcium Level 7.9mg/dL (8.5-10.1) Phosphorus Level 3.8mg/dL (2.6-4.7) Magnesium Level 1.9mg/dL (1.8-2.4) Albumin 1.8g/dL (3.4-5.0) Microbiology 08/04/16 Blood Culture - Preliminary, Resulted NO GROWTH AFTER 3 DAYS 08/04/16 Urine Culture - Preliminary, Resulted 08/04/16 Urine Culture Result 1 (AMADOU) - Preliminary, Resulted 08/04/16 Gram Stain - Final, Complete Medications Current Medications Furosemide (Lasix) 20 mg 1X ONCE IVP ; Start 08/07/16 at 08:00; Stop 08/07/16 at 08:01; Status DC Lactobacillus Acidophilus 1 tab 1 tab TIDWMEALS PO Last administered on 08:38; Start 08/06/16 at 12:30 Potassium Phosphate 13.6 mmol/Sodium Chloride 104.5333 ml @ 52.267 m... Q2H IV Last administered on 08/06/16 18:59; Start 08/06/16 at 13:00; Stop 08/06/16 at 18:59; Status DC Sodium Bicarbonate/ Potassium Acetate/ Sodium Chloride (Iv Sodium Chloride 0.45% ) 1,070 ml @ 75 mls/hr [id number] IV ; Start 08/06/16 at 12:30; Stop 08/06/16 at 12: 30; Status DC Vitals/I & O Vital Sign - Last 24 Hours 08/06/16 08/06/16 08/06/16 08/06/16 11:00 12:00 12:00 13:00 Temp 98.5 98.5 Pulse 78 76 82 Resp 24 28 28 B/P 100/52 99/63 117/61 Pulse Ox 99 98 94 O2 Delivery Nasal Cannula Nasal Cannula Room Air O2 Flow Rate 4.0 4.0 08/06/16 08/06/16 08/06/16 08/06/16 14:00 15:00 16:00 16:00 Temp 98.7 98.7 Pulse 76 80 82 Resp 18 22 29 B/P 116/52 121/61 117/54 Pulse Ox 93 95 95 O2 Delivery Room Air Nasal Cannula O2 Flow Rate 4.0 08/06/16 08/06/16 08/06/16 08/06/16 17:00 18:00 19:00 20:00 Pulse 84 86 82 Resp 18 B/P 121/52 147/74 136/64 Pulse Ox 94 94 98 O2 Delivery Nasal Cannula Nasal Cannula O2 Flow Rate 2.0 2.0 08/06/16 08/06/16 08/06/16 08/06/16 20:00 21:00 21:00 22:00 Temp 98.6 98.6 Pulse 82 79 84 84 Resp 17 B/P 123/58 122/51 122/53 134/62 Pulse Ox 99 97 98 O2 Delivery Nasal Cannula Nasal Cannula Nasal Cannula O2 Flow Rate 2.0 2.0 2.0 08/06/16 08/07/16 08/07/16 08/07/16 23:00 00:00 00:00 01:00 Temp 98.5 98.5 Pulse 82 84 80 Resp 17 18 14 B/P 128/53 140/56 128/51 Pulse Ox 98 95 96 O2 Delivery Nasal Cannula Nasal Cannula Nasal Cannula Nasal Cannula O2 Flow Rate 2.0 2.0 2.0 2.0 08/07/16 08/07/16 08/07/16 08/07/16 02:00 03:00 04:00 04:00 Temp 99.2 99.2 Pulse 84 85 81 Resp 17 B/P 142/61 125/55 132/61 Pulse Ox 90 96 98 O2 Delivery Nasal Cannula Nasal Cannula Nasal Cannula Nasal Cannula O2 Flow Rate 2.0 2.0 2.0 2.0 08/07/16 08/07/16 08/07/16 08/07/16 05:00 06:00 07:00 08:00 Pulse 80 84 78 Resp 20 16 19 B/P 128/58 133/67 124/61 Pulse Ox 98 98 97 O2 Delivery Nasal Cannula Nasal Cannula Nasal Cannula Nasal Cannula O2 Flow Rate 2.0 2.0 2.0 2.0 08/07/16 08/07/16 08/07/16 08/07/16 08:00 08:40 08:47 09:00 Temp 99.1 99.1 Pulse 78 82 87 83 Resp 20 24 B/P 140/56 140/56 140/56 140/56 Pulse Ox 96 94 O2 Delivery Nasal Cannula Nasal Cannula O2 Flow Rate 2.0 2.0 08/07/16 08/07/16 08/07/16 08/07/16 09:40 10:00 10:00 10:45 Temp 99.1 98.6 98.6 98.6 99.1 98.6 98.6 98.6 Pulse 83 80 80 79 Resp 24 20 20 21 B/P 140/56 137/56 137/56 142/67 Pulse Ox 97 O2 Delivery Nasal Cannula O2 Flow Rate 2.0 Intake and Output 08/06/16 08/06/16 08/07/16 15:00 23:00 07:00 Intake Total 1193 ml 1723 ml Output Total 720 ml 950 ml 610 ml Balance -720 ml 243 ml 1113 ml JAMES CORCORAN MD Aug 07, 2016 10:53
[2016-08-07] MEDS ORDERED: DARBEPOETIN ALFA 60 MCG/0.3 ML DISP.SYRIN. SQ ONE (11:30)
--- NOTE | 2016-08-07 12:37 | RAD ---
AP portable chest radiograph 08/07/2016 Clinical History: CHF. An AP portable erect digital radiograph of the chest was obtained. Comparison study is dated 08/06/2016. The cardiac silhouette is mildly enlarged. The thoracic aorta is tortuous. The right arm PICC is unchanged position. Increasing congestive changes are seen involving both longs. No pneumothorax or large pleural effusion is seen. The osseous structures are unchanged. Impression: Increasing CHF.
[2016-08-07] MEDS: FLUCONAZOLE 100 MG TABLET. PO SCH (13:33)
[2016-08-07] MEDS: HEPARIN 25,000UTS/500ML PREMIX 500 ML IV PRN (13:34)
[2016-08-07] MEDS: ANTI-COAG MONITOR BY PHARMACY. MC PRN (16:32)
[2016-08-07] MEDS: INSULIN DETEMIR 300 UNITS/3 ML INSULN.PEN. SQ SCH (17:25)
[2016-08-07 19:34] LABS: % SAT IRON 39 % (15-34); IRON,SERUM 69 ug/dL (50-170)
[2016-08-07] MEDS: AMITRIPTYLINE HCL 25 MG TABLET PO SCH (21:04)
[2016-08-07] MEDS: ATORVASTATIN CALCIUM 10 MG TABLET. PO SCH (21:04)
[2016-08-07] MEDS: ACETYLCYSTEINE 20% ORAL SOLN 600 MG/3 ML SYRINGE. PO SCH (21:05)
[2016-08-08] VITALS (12 sets, daily range): BP systolic 124–182; BP diastolic 50–103
[2016-08-08] MEDS: POTASSIUM CHLORIDE 20MEQ 50 ML IV SCH ×2 (00:02→01:00)
[2016-08-08 05:39] LABS: BASO % 1 % (0-3); EOS % 4 % (0-3); HEMATOCRIT 30.4 % (36.0-47.0); HEMOGLOBIN 10.3 g/dL (12.0-15.5); LYMPH # 1.3 x10^3/uL (1.0-4.8); LYMPH % 19 % (24-48); MEAN CORPUSCULAR HEMOGLOBIN 28 pg (25-35); MEAN CORPUSCULAR HGB CONC 34 g/dL (31-37); MEAN CORPUSCULAR VOLUME 82 fL (79-100); MONO % 10 % (0-9); NEUT % 66 % (31-73); PLATELET COUNT 185 x10^3/uL (140-400); RED CELL DISTRIBUTION WIDTH 16.2 % (11.5-14.5); WHITE BLOOD COUNT 6.6 x10^3/uL (4.0-11.0)
[2016-08-08 05:44] LABS: CALCIUM 8.3 mg/dL (8.5-10.1); CREATININE 0.9 mg/dL (0.6-1.0); GFR 59.7; PHOSPHORUS 2.9 mg/dL (2.6-4.7); POTASSIUM 4.1 mmol/L (3.5-5.1)
[2016-08-08] MEDS: LEVOTHYROXINE 50 MCG TABLET PO SCH (07:00)
[2016-08-08] MEDS: PANTOPRAZOLE 40 MG TABLET. PO SCH (07:30)
[2016-08-08] MEDS: LACTOBACILLUS ACIDOPH & BULGAR 1 TABLET. PO SCH ×3 (08:00→18:00)
[2016-08-08] MEDS: INSULIN ASPART 300 UNITS/3 ML INSULN.PEN SQ SCH ×6 (08:00→18:05)
[2016-08-08] MEDS: ANTI-COAG MONITOR BY PHARMACY. MC PRN (08:32)
--- NOTE | 2016-08-08 08:47 | PDOC ---
Infectious Disease Note Subjective Subjective No fever last 24 hours Better 3 stools - better ROS ROS GEN: Denies fevers, chills, sweats HEENT: Denies blurred vision, sore throat CV: Denies chest pain RESP: Denies shortness of air, cough GI: Denies n/v/d NEURO: Denies confusion, dizziness MSK: Denies weakness, joint pain/swelling Vital Sign Vital Signs Vital Signs Date Time Temp Pulse Resp B/P Pulse Ox O2 Delivery O2 Flow Rate FiO2 08/08/16 08:04 Nasal Cannula 2.0 08/08/16 04:00 98.6 75 23 139/67 96 98.6 Physical Exam PHYSICAL EXAM GENERAL: Resting quietly, NAD. looks well HEENT: Oral cavity pink and dry NECK: Supple LUNGS: Clear HEART: S1S2 ABD: BS present, soft, NT : Simpson EXT: Left foot trace edema w/ wound vac in place; no redness. SKIN: No rash RUE-PICC. clean Labs Lab Laboratory Tests Test 08/07/16 10:30 08/07/16 12:00 08/07/16 16:46 08/07/16 18:15 Heparin Anti-Xa Act, Unfractionated 0.40IU/mL (0.30-0.70) Glucose (Fingerstick) 150mg/dL (70-99) 142mg/dL (70-99) Reticulocyte Count (auto) 1.0% (0.5-2.5) Potassium Level 3.3mmol/L (3.5-5.1) Iron Level 69ug/dL (50-170) Total Iron Binding Capacity 177ug/dL (250-450) Iron Saturation 39% (15-34) Ferritin 98ng/mL (8-252) Test 08/08/16 05:00 White Blood Count 6.6x10^3/uL (4.0-11.0) Red Blood Count 3.70x10^6/uL (3.50-5.40) Hemoglobin 10.3g/dL (12.0-15.5) Hematocrit 30.4% (36.0-47.0) Mean Corpuscular Volume 82fL (79-100) Mean Corpuscular Hemoglobin 28pg (25-35) Mean Corpuscular Hemoglobin Concent 34g/dL (31-37) Red Cell Distribution Width 16.2% (11.5-14.5) Platelet Count 185x10^3/uL (140-400) Neutrophils (%) (Auto) 66% (31-73) Lymphocytes (%) (Auto) 19% (24-48) Monocytes (%) (Auto) 10% (0-9) Eosinophils (%) (Auto) 4% (0-3) Basophils (%) (Auto) 1% (0-3) Neutrophils # (Auto) 4.4x10^3uL (1.8-7.7) Lymphocytes # (Auto) 1.3x10^3/uL (1.0-4.8) Monocytes # (Auto) 0.7x10^3/uL (0.0-1.1) Eosinophils # (Auto) 0.3x10^3/uL (0.0-0.7) Basophils # (Auto) 0.0x10^3/uL (0.0-0.2) Heparin Anti-Xa Act, Unfractionated 0.47IU/mL (0.30-0.70) Sodium Level 139mmol/L (136-145) Potassium Level 4.1mmol/L (3.5-5.1) Chloride Level 108mmol/L (98-107) Carbon Dioxide Level 25mmol/L (21-32) Anion Gap 6 (6-14) Blood Urea Nitrogen 18mg/dL (7-20) Creatinine 0.9mg/dL (0.6-1.0) Estimated GFR (Cockcroft-Gault) 59.7 Glucose Level 147mg/dL (70-99) Calcium Level 8.3mg/dL (8.5-10.1) Phosphorus Level 2.9mg/dL (2.6-4.7) Magnesium Level 1.8mg/dL (1.8-2.4) Albumin 2.0g/dL (3.4-5.0) Objective Assessment Fever, better Leukocytosis, improved Left foot wound /osteo. yeast on GS on Aug 04. CX: yeast -h/o PSA -s/p left fifth toe open amputation with wound vac, 07/25 C diff. 2/2. DM w/ peripheral neuropathy PVD. s/p failed LLE bypass graft IGOR Anemia NSTEMI CHF on x-ray Yeast in urine Plan Plan of Care Cont po vanc Probiotics Cont Fluconazole for a few doses f/u cultures Supportive care D/w family CHRISTINE CARL MD Aug 08, 2016 08:47
[2016-08-08] MEDS: VANCOMYCIN 125 MG/2.5 ML ORAL SOLUTION. PO SCH ×4 (09:00→21:22)
[2016-08-08] MEDS: ACETYLCYSTEINE 20% ORAL SOLN 600 MG/3 ML SYRINGE. PO SCH ×3 (09:00→21:22)
--- NOTE | 2016-08-08 09:26 | PDOC ---
PROGRESS NOTES Subjective Subjective no complaints ,waiting for cardiac cath Objective Objective Vital Signs Date Time Temp Pulse Resp B/P Pulse Ox O2 Delivery O2 Flow Rate FiO2 08/08/16 08:04 Nasal Cannula 2.0 08/08/16 04:00 98.6 75 23 139/67 96 98.6 Intake and Output 08/08/16 07:00 Intake Total 4015.8 ml Output Total 2450 ml Balance 1565.8 ml Intake Oral 237 ml IV Total 946.8 ml Blood Product 655 ml Blood Product IV Normal Saline Flush 670 ml Other 1507 ml Output Urine Total 2450 ml # Bowel Movements 6 Physical Exam Abdomen: Soft, No tenderness Heart: Regular rate, Normal S1, Normal S2, Other (palpable femoral pulses bilaterally) Extremities: Other (the patient has a wound vac in place. Photo taken yesterday of the wound shows a stable wound. There is no surrounding erythema.) General: Alert HEENT: Atraumatic, Mucous membr. moist/pink Lungs: Other (diffuse crackles with faint wheeze) MUSCULOSKELETAL: Osteoarthritic changes both hands Neuro: Normal speech, Sensation intact Psych/Mental Status: Mood NL Skin: Other (left fifth toe open amputation with some areas of fibrin and dusky tissue, foot warm, unable to palpate DP pulse) Diagnosis Problem List Problems Medical Problems: (1) NSTEMI (non-ST elevated myocardial infarction) Status: Acute (2) Sepsis Status: Acute (3) Urinary tract infection Status: Acute Assessment Assessment Problems Medical Problems: (1) NSTEMI (non-ST elevated myocardial infarction) Status: Acute (2) Sepsis Status: Acute (3) Urinary tract infection Status: Acute FINAL IMPRESSION: cad anemia chf Acute NH -non Stemi. hypotension. C diff colitis 1. Febrile illness, temperature of 103. 2. Sepsis, could be line infection. The patient has a PICC line in the right arm, could be Clostridium difficile colitis. 3. Diabetes, insulin dependent. 4. Hypothyroidism. 5. Peripheral vascular disease, bypass to both lower extremities. 6. Recent amputation of the left fifth toe for osteomyelitis, has open wound to heal. 7. Breast carcinoma, left mastectomy. 8. Anemia of chronic disease. 9. Protein-calorie malnutrition, mild to moderate. PLAN: cardiac cath today. labs good. yeast in wounds and urine on diflucan transfuse today for anemia hb 10 today . po vancomycin+add questran powder 1 po bid troponin elevated to 9.0 cardiac cath monday on heparin drip. cardiac cath once stable Off Levophed for hypotension. Oral avnco for c diff uti-yeast pot 3.8 replaced cr 1.6 cxr chf. Problems: Plan Plan of Care Problems Medical Problems: (1) NSTEMI (non-ST elevated myocardial infarction) Status: Acute (2) Sepsis Status: Acute (3) Urinary tract infection Status: Acute Comment Review of Relevant I have reviewed the following items kathleen (where applicable) has been applied. Labs Laboratory Tests Test 08/07/16 10:30 08/07/16 12:00 08/07/16 16:46 08/07/16 18:15 Heparin Anti-Xa Act, Unfractionated 0.40IU/mL (0.30-0.70) Glucose (Fingerstick) 150mg/dL (70-99) 142mg/dL (70-99) Reticulocyte Count (auto) 1.0% (0.5-2.5) Potassium Level 3.3mmol/L (3.5-5.1) Iron Level 69ug/dL (50-170) Total Iron Binding Capacity 177ug/dL (250-450) Iron Saturation 39% (15-34) Ferritin 98ng/mL (8-252) Test 08/08/16 05:00 White Blood Count 6.6x10^3/uL (4.0-11.0) Red Blood Count 3.70x10^6/uL (3.50-5.40) Hemoglobin 10.3g/dL (12.0-15.5) Hematocrit 30.4% (36.0-47.0) Mean Corpuscular Volume 82fL (79-100) Mean Corpuscular Hemoglobin 28pg (25-35) Mean Corpuscular Hemoglobin Concent 34g/dL (31-37) Red Cell Distribution Width 16.2% (11.5-14.5) Platelet Count 185x10^3/uL (140-400) Neutrophils (%) (Auto) 66% (31-73) Lymphocytes (%) (Auto) 19% (24-48) Monocytes (%) (Auto) 10% (0-9) Eosinophils (%) (Auto) 4% (0-3) Basophils (%) (Auto) 1% (0-3) Neutrophils # (Auto) 4.4x10^3uL (1.8-7.7) Lymphocytes # (Auto) 1.3x10^3/uL (1.0-4.8) Monocytes # (Auto) 0.7x10^3/uL (0.0-1.1) Eosinophils # (Auto) 0.3x10^3/uL (0.0-0.7) Basophils # (Auto) 0.0x10^3/uL (0.0-0.2) Heparin Anti-Xa Act, Unfractionated 0.47IU/mL (0.30-0.70) Sodium Level 139mmol/L (136-145) Potassium Level 4.1mmol/L (3.5-5.1) Chloride Level 108mmol/L (98-107) Carbon Dioxide Level 25mmol/L (21-32) Anion Gap 6 (6-14) Blood Urea Nitrogen 18mg/dL (7-20) Creatinine 0.9mg/dL (0.6-1.0) Estimated GFR (Cockcroft-Gault) 59.7 Glucose Level 147mg/dL (70-99) Calcium Level 8.3mg/dL (8.5-10.1) Phosphorus Level 2.9mg/dL (2.6-4.7) Magnesium Level 1.8mg/dL (1.8-2.4) Albumin 2.0g/dL (3.4-5.0) Microbiology 08/04/16 Blood Culture - Preliminary, Resulted NO GROWTH AFTER 3 DAYS 08/04/16 Urine Culture - Final, Complete 08/04/16 Urine Culture Result 1 (AMADOU) - Final, Complete 08/04/16 Gram Stain - Final, Complete Medications Current Medications Acetylcysteine (Mucomyst 20% Oral Solution) 1,200 mg BID PO Last administered on 08/07/16 21:05; Start 08/07/16 at 21:00; Stop 08/09/16 at 20:59 Darbepoetin Aidan (Aranesp) 60 mcg 1X ONCE SQ Last administered on 08/07/16 12: 03; Start 08/07/16 at 11:30; Stop 08/07/16 at 11:31; Status DC Fluconazole 100 mg 100 mg DAILY PO Last administered on 08/07/16 13:33; Start 08/07/16 at 12:00 Potassium Chloride (KCl Premix 20meq) 50 ml @ 50 mls/hr Q1H IV Last administered on 08/08/16 01:00; Start 08/08/16 at 00:00; Stop 08/08/16 at 01:59; Status DC Vitals/I & O Vital Sign - Last 24 Hours 08/07/16 08/07/16 08/07/16 08/07/16 09:40 10:00 10:00 10:45 Temp 99.1 98.6 98.6 98.6 99.1 98.6 98.6 98.6 Pulse 83 80 80 79 Resp 24 20 21 B/P 140/56 137/56 137/56 142/67 Pulse Ox 97 O2 Delivery Nasal Cannula O2 Flow Rate 2.0 08/07/16 08/07/16 08/07/16 08/07/16 11:00 11:44 12:00 12:00 Temp 99.1 99.1 99.1 99.1 Pulse 78 81 78 Resp B/P 146/69 145/69 128/59 Pulse Ox 98 97 O2 Delivery Nasal Cannula Nasal Cannula Nasal Cannula O2 Flow Rate 2.0 2.0 2.0 08/07/16 08/07/16 08/07/16 08/07/16 12:22 12:46 13:00 13:22 Temp 99.1 98.1 98.8 99.1 98.1 98.8 Pulse 74 78 78 74 Resp 19 B/P 128/59 143/59 165/76 132/56 Pulse Ox 99 O2 Delivery Nasal Cannula O2 Flow Rate 2.0 08/07/16 08/07/16 08/07/16 08/07/16 14:00 16:00 20:00 20:00 Temp 99.1 98.9 98.4 99.1 98.9 98.4 Pulse 78 77 84 Resp B/P 147/73 152/61 166/70 Pulse Ox 97 95 O2 Delivery Nasal Cannula Nasal Cannula Nasal Cannula O2 Flow Rate 2.0 2.0 2.0 08/07/16 08/08/16 08/08/16 08/08/16 21:05 00:00 04:00 08:04 Temp 98.7 98.6 98.7 98.6 Pulse 82 62 75 Resp 22 23 B/P 166/70 141/50 139/67 Pulse Ox 94 96 O2 Delivery Nasal Cannula Nasal Cannula Nasal Cannula O2 Flow Rate 2.0 2.0 2.0 Intake and Output 08/07/16 08/07/16 08/08/16 15:00 23:00 07:00 Intake Total 927 ml 2739 ml 349.8 ml Output Total 465 ml 985 ml 1000 ml Balance 462 ml 1754 ml -650.2 ml JAMES CORCORAN MD Aug 08, 2016 09:26
--- NOTE | 2016-08-08 09:30 | EKG ---
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
--- NOTE | 2016-08-08 09:48 | PDOC ---
SUBJECTIVE ROS IGOR - doing better, for LHC later today OBJECTIVE Vital Signs Vital Signs Date Time Temp Pulse Resp B/P Pulse Ox O2 Delivery O2 Flow Rate FiO2 08/08/16 08:04 Nasal Cannula 2.0 08/08/16 04:00 98.6 75 23 139/67 96 98.6 I & 0 Intake and Output 08/08/16 07:00 Intake Total 4015.8 ml Output Total 2450 ml Balance 1565.8 ml Intake Oral 237 ml IV Total 946.8 ml Blood Product 655 ml Blood Product IV Normal Saline Flush 670 ml Other 1507 ml Output Urine Total 2450 ml # Bowel Movements 6 PHYSICAL EXAM Physical Exam General Appearance: Awake Alert Oriented x 3 In no Distress Eyes: VIsion Unchanged Conjunctiva Normal EN: No EN Drainage Mucous Memb. moist Neck: no JVD min JVP Supple no Thyromegaly CVS: S1 S2 soft Murmur No Gallop No Rub no Edema Resp: few basal Rales no Rhonchi no Acc. Muscle use GI: BS +ve NO Bruit min Tender on the Rt Side Non Distended : no CVA tenderness; no Suprapubic Tenderness Assessment & Plan ARF/ ATN: Suspect after Rapid Response. Creat is better. IGOR resolved ? CKD III - baseline creat 1.1 - 1.3 - Creat is better today - suspect due to ? min Fl OVerloaded state Anemia: Transfused and better today NSTEMI - C today CHF on CXR (worse on Yesterday's CXR) - hence No IVF given pre-cath, Resume scheduled lasix 48-hrs post Cath Discussed Plan of Care and prognosis etc. at length with family; Dr Mcdonough Will be available prn COMMENT/RELEVANT DATA Meds Current Medications Medications (Trade) Dose Ordered Sig/Kyle Start Time Stop Time Status Last Admin Dose Admin Acetaminophen (Tylenol) 325 mg PRN QID PRN 08/04/16 09:30 Acetaminophen 1000 mg 1,000 mg 1X ONCE 08/03/16 20:00 08/03/16 20:01 DC 08/03/16 20:02 1,000 MG Acetaminophen 650 mg 650 mg PRN Q4HRS PRN 08/03/16 21:15 08/04/16 21:14 DC 08/04/16 10:51 650 MG Acetaminophen/ Codeine Phosphate (Tylenol #3) 1 tab PRN BID PRN 08/04/16 09:30 Acetylcysteine (Mucomyst 20% Oral Solution) 1,200 mg BID 08/07/16 21:00 08/09/16 20:59 08/07/16 21:05 1,200 MG Albuterol Sulfate 2.5 mg 2.5 mg 1X ONCE 08/04/16 12:30 08/04/16 12:31 DC 08/04/16 12:29 2.5 MG Amitriptyline HCl (Elavil) 25 mg HS 08/04/16 21:00 08/07/16 21:04 25 MG Amlodipine Besylate (Norvasc) 5 mg DAILY 08/04/16 10:30 08/05/16 09:21 DC 08/04/16 10:52 5 MG Anastrozole (Arimidex) 1 mg DAILY 08/04/16 10:30 08/07/16 08:34 1 MG Aspirin (Ecotrin) 81 mg DAILY 08/04/16 10:30 08/07/16 08:40 81 MG Aspirin 325 mg 325 mg 1X ONCE 08/04/16 13:00 08/04/16 13:01 DC 08/04/16 15:26 325 MG Atorvastatin Calcium (Lipitor) 10 mg QHS 08/05/16 21:00 08/07/16 21:04 10 MG Ceftriaxone Sodium 50 ml @ 100 mls/hr 1X ONCE 08/03/16 21:00 08/03/16 21:29 DC 08/03/16 22:07 100 MLS/HR Clopidogrel Bisulfate (Plavix) 75 mg DAILY 08/04/16 10:30 08/07/16 08:47 75 MG Darbepoetin Aidan (Aranesp) 60 mcg 1X ONCE 08/07/16 11:30 08/07/16 11:31 DC 08/07/16 12:03 60 MCG Dextrose 12.5 gm PRN Q15MIN PRN 08/05/16 18:30 Fluconazole 100 mg 100 mg DAILY 08/07/16 12:00 08/07/16 13:33 100 MG Fluconazole/ Sodium Chloride (Diflucan 200mg/ 100ml Premix) 100 ml @ 100 mls/hr Q24H 08/04/16 10:00 08/05/16 07:47 DC 08/04/16 15:17 100 MLS/HR Furosemide (Lasix) 20 mg 1X ONCE 08/07/16 08:00 08/07/16 08:01 DC 08/07/16 12:04 20 MG Furosemide 40 mg 40 mg DAILY 08/04/16 15:00 08/06/16 12:13 DC 08/06/16 09:22 40 MG Heparin Sodium (Porcine) 1,600 unit PRN Q6HRS PRN 08/04/16 12:45 Heparin Sodium/ Dextrose 500 ml @ 0 mls/hr CONT PRN 08/04/16 12:45 08/07/16 13:34 23.6 MLS/HR Info (Anti-Coagulation Monitoring By Pharmacy) 1 each PRN DAILY PRN 08/04/16 12:45 08/08/16 08:32 1 EACH Insulin Aspart (Novolog) 7 units 1X ONCE 08/05/16 18:45 08/05/16 18:46 DC 08/05/16 21:42 7 UNITS Insulin Detemir (Levemir) 10 units 1X ONCE 08/05/16 18:30 08/05/16 18:31 DC 08/05/16 21:42 10 UNITS Insulin Detemir 20 units 20 units DAILY@18 08/04/16 18:00 08/05/16 18:23 DC 08/05/16 18:03 20 UNITS Lactobacillus Acidophilus 1 tab 1 tab TIDWMEALS 08/06/16 12:30 08/07/16 17:18 1 TAB Levothyroxine Sodium (Synthroid) 50 mcg DAILY07 08/04/16 10:30 08/07/16 08:40 50 MCG Linagliptin (Tradjenta) 5 mg DAILY 08/04/16 10:30 08/07/16 08:47 5 MG Lisinopril (Prinivil) 2.5 mg DAILY 08/04/16 10:30 08/04/16 15:22 DC 08/04/16 10:51 2.5 MG Lisinopril 2.5 mg 2.5 mg DAILY 08/05/16 09:15 08/07/16 08:47 2.5 MG Magnesium Sulfate/ Dextrose 50 ml @ 25 mls/hr PRN DAILY PRN 08/05/16 10:45 Metoprolol Tartrate (Lopressor) 12.5 mg BID 08/05/16 09:15 08/07/16 21:05 12.5 MG Norepinephrine Bitartrate/Sodium Chloride (Levophed Vial/ Iv Sodium Chloride 0.9% 250ml) 258 ml @ 0 mls/hr CONT PRN 08/04/16 15:00 Ondansetron HCl (Zofran) 4 mg PRN Q8HRS PRN 08/03/16 21:15 08/04/16 21:14 DC Pantoprazole Sodium (Protonix) 40 mg DAILYAC 08/04/16 10:30 08/07/16 08:40 40 MG Piperacillin Sod/ Tazobactam Sod 3.375 gm/Sodium Chloride 50 ml @ 100 mls/hr Q6HRS 08/04/16 10:00 08/06/16 12:10 DC 08/06/16 06:04 100 MLS/HR Potassium Phosphate 13.6 mmol/Sodium Chloride 104.5333 ml @ 52.267 m... Q2H 08/06/16 13:00 08/06/16 18:59 DC 08/06/16 18:59 52.267 MLS/HR Potassium Acetate 20 meq/Sodium Chloride 110 ml @ 55 mls/hr Q2H 08/05/16 11:00 08/05/16 14:59 DC 08/05/16 11:59 55 MLS/HR Potassium Acetate/ Sodium Chloride (Iv Sodium Chloride 0.9% 100ml) 110 ml @ 55 mls/hr Q2H 08/05/16 17:00 08/05/16 20:59 DC 08/05/16 21:40 55 MLS/HR Potassium Chloride (KCl Premix 20meq) 50 ml @ 50 mls/hr Q1H 08/08/16 00:00 08/08/16 01:59 DC 08/08/16 01:00 50 MLS/HR Pregabalin (Lyrica) 50 mg BID 08/04/16 10:30 08/07/16 21:04 50 MG Silver Sulfadiazine (Silvadene) 1 opal DAILY 08/04/16 10:30 08/05/16 10:42 1 OPAL Sodium Bicarbonate/ Potassium Acetate/ Sodium Chloride (Iv Sodium Chloride 0.45%) 1,070 ml @ 75 mls/hr [id number] 08/06/16 12:30 08/06/16 12:30 DC Sodium Bicarbonate/ Sodium Chloride (Iv Sodium Chloride 0.45%) 1,075 ml @ 100 mls/hr [id number] 08/04/16 18:00 08/06/16 03:19 DC 08/05/16 04:45 100 MLS/HR Sodium Chloride 1,000 ml @ 495 mls/hr Q2H2M 08/04/16 15:30 08/04/16 19:30 DC 08/04/16 15:30 495 MLS/HR Sodium Chloride (Iv Sodium Chloride 0.9% 500ml Bag) 500 ml @ 500 mls/hr 1X ONCE 08/03/16 21:30 08/03/16 22:29 DC 08/03/16 23:20 500 MLS/HR Sodium Chloride (Iv Sodium Chloride 0.9% 1000ml Bag) 1,000 ml @ 100 mls/hr Q10H 08/04/16 10:30 08/05/16 09:21 DC Vancomycin HCl 125 mg 125 mg [id number] 08/04/16 17:00 08/05/16 08:03 DC Vancomycin HCl 1 each 1 each PRN DAILY PRN 08/04/16 09:15 08/05/16 08:02 DC 08/04/16 13:22 1 EACH Vancomycin HCl/ Sodium Chloride (Iv Sodium Chloride 0.9% 250ml) 250 ml @ 167 mls/hr Q24H 08/05/16 11:00 08/05/16 11:00 DC Vancomycin HCl/ Sodium Chloride (Iv Sodium Chloride 0.9% 500ml Bag) 500 ml @ 250 mls/hr 1X ONCE 08/04/16 09:30 08/04/16 11:29 DC 08/04/16 10:54 250 MLS/HR Lab Laboratory Tests Test 08/07/16 10:30 08/07/16 12:00 08/07/16 16:46 08/07/16 18:15 Heparin Anti-Xa Act, Unfractionated 0.40IU/mL (0.30-0.70) Glucose (Fingerstick) 150mg/dL (70-99) 142mg/dL (70-99) Reticulocyte Count (auto) 1.0% (0.5-2.5) Potassium Level 3.3mmol/L (3.5-5.1) Iron Level 69ug/dL (50-170) Total Iron Binding Capacity 177ug/dL (250-450) Iron Saturation 39% (15-34) Ferritin 98ng/mL (8-252) Test 08/08/16 05:00 White Blood Count 6.6x10^3/uL (4.0-11.0) Red Blood Count 3.70x10^6/uL (3.50-5.40) Hemoglobin 10.3g/dL (12.0-15.5) Hematocrit 30.4% (36.0-47.0) Mean Corpuscular Volume 82fL (79-100) Mean Corpuscular Hemoglobin 28pg (25-35) Mean Corpuscular Hemoglobin Concent 34g/dL (31-37) Red Cell Distribution Width 16.2% (11.5-14.5) Platelet Count 185x10^3/uL (140-400) Neutrophils (%) (Auto) 66% (31-73) Lymphocytes (%) (Auto) 19% (24-48) Monocytes (%) (Auto) 10% (0-9) Eosinophils (%) (Auto) 4% (0-3) Basophils (%) (Auto) 1% (0-3) Neutrophils # (Auto) 4.4x10^3uL (1.8-7.7) Lymphocytes # (Auto) 1.3x10^3/uL (1.0-4.8) Monocytes # (Auto) 0.7x10^3/uL (0.0-1.1) Eosinophils # (Auto) 0.3x10^3/uL (0.0-0.7) Basophils # (Auto) 0.0x10^3/uL (0.0-0.2) Heparin Anti-Xa Act, Unfractionated 0.47IU/mL (0.30-0.70) Sodium Level 139mmol/L (136-145) Potassium Level 4.1mmol/L (3.5-5.1) Chloride Level 108mmol/L (98-107) Carbon Dioxide Level 25mmol/L (21-32) Anion Gap 6 (6-14) Blood Urea Nitrogen 18mg/dL (7-20) Creatinine 0.9mg/dL (0.6-1.0) Estimated GFR (Cockcroft-Gault) 59.7 Glucose Level 147mg/dL (70-99) Calcium Level 8.3mg/dL (8.5-10.1) Phosphorus Level 2.9mg/dL (2.6-4.7) Magnesium Level 1.8mg/dL (1.8-2.4) Albumin 2.0g/dL (3.4-5.0) RAMIN MALDONADO MD Aug 08, 2016 09:48
[2016-08-08] MEDS ORDERED: IOHEXOL 300 MG/ML 100ML VIAL. ONE (11:47)
[2016-08-08] MEDS ORDERED: LIDOCAINE 2% 20 ML VIAL. ONE (11:47)
--- NOTE | 2016-08-08 11:48 | PDOC ---
PROGRESS NOTES Subjective Subjective Patient seen with multiple family members present. Per family, patient is not complaining of pain in left foot. Objective Objective Vascular Surgery - follow up: Wound vac dressing removed from 5th toe open amp site of left foot. Wound base dry. Increase in slough material in base with pallorous white tissue changes to surrounding tissue. Unable to palpate DP, PT or popliteal pulses. Assessment/Plan: 1. Sepsis - improving. Afebrile for 24 hours and improvement in leukocytosis on antibiotic therapy. ID following. C-diff+ and left foot osteo. 2. 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 Wound base has declined in appearance. Dry base without drainage and white pallorous tissue color change to surrounding tissue. No erythema. Wound vac therapy will be stopped at this time and wet dressing applied to wound to keep tissue moist. Most likely, will need additional debridement once cardiac status stabilized. Continue antiplatelet therapy on ASA and Plavix. 3. Known left leg failed bypass graft. Will need to address revascularization plan to promote amp healing once stabilized from a heart perspective. Awaiting heart cath today. 4. CKD - nephrology following. Stable renal function. 5. 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 Required blood transfusion. Continue to optimize H&H for tissue perfusion. Vital Signs Date Time Temp Pulse Resp B/P Pulse Ox O2 Delivery O2 Flow Rate FiO2 08/08/16 10:21 82 22 167/103 95 Nasal Cannula 2.0 08/08/16 08:00 98.5 98.5 Intake and Output 08/08/16 07:00 Intake Total 4015.8 ml Output Total 2450 ml Balance 1565.8 ml Intake Oral 237 ml IV Total 946.8 ml Blood Product 655 ml Blood Product IV Normal Saline Flush 670 ml Other 1507 ml Output Urine Total 2450 ml # Bowel Movements 6 Assessment Assessment Problems Medical Problems: (1) NSTEMI (non-ST elevated myocardial infarction) Status: Acute (2) Sepsis Status: Acute (3) Urinary tract infection Status: Acute Comment Review of Relevant I have reviewed the following items kathleen (where applicable) has been applied. Labs Laboratory Tests Test 08/06/16 12:21 08/06/16 17:29 08/06/16 21:54 08/07/16 05:20 Glucose (Fingerstick) 222mg/dL (70-99) 208mg/dL (70-99) 171mg/dL (70-99) White Blood Count 6.2x10^3/uL (4.0-11.0) Red Blood Count 2.56x10^6/uL (3.50-5.40) Hemoglobin 6.9g/dL (12.0-15.5) Hematocrit 21.0% (36.0-47.0) Mean Corpuscular Volume 82fL (79-100) Mean Corpuscular Hemoglobin 27pg (25-35) Mean Corpuscular Hemoglobin Concent 33g/dL (31-37) Red Cell Distribution Width 16.1% (11.5-14.5) Platelet Count 175x10^3/uL (140-400) Neutrophils (%) (Auto) 72% (31-73) Lymphocytes (%) (Auto) 14% (24-48) Monocytes (%) (Auto) 9% (0-9) Eosinophils (%) (Auto) 4% (0-3) Basophils (%) (Auto) 1% (0-3) Neutrophils # (Auto) 4.5x10^3uL (1.8-7.7) Lymphocytes # (Auto) 0.9x10^3/uL (1.0-4.8) Monocytes # (Auto) 0.5x10^3/uL (0.0-1.1) Eosinophils # (Auto) 0.3x10^3/uL (0.0-0.7) Basophils # (Auto) 0.0x10^3/uL (0.0-0.2) Sodium Level 143mmol/L (136-145) Potassium Level 3.8mmol/L (3.5-5.1) Chloride Level 111mmol/L (98-107) Carbon Dioxide Level 24mmol/L (21-32) Anion Gap 8 (6-14) Blood Urea Nitrogen 25mg/dL (7-20) Creatinine 1.2mg/dL (0.6-1.0) Estimated GFR (Cockcroft-Gault) 42.8 Glucose Level 109mg/dL (70-99) Calcium Level 7.9mg/dL (8.5-10.1) Phosphorus Level 3.8mg/dL (2.6-4.7) Magnesium Level 1.9mg/dL (1.8-2.4) Albumin 1.8g/dL (3.4-5.0) Test 08/07/16 10:30 08/07/16 12:00 08/07/16 16:46 08/07/16 18:15 Heparin Anti-Xa Act, Unfractionated 0.40IU/mL (0.30-0.70) Glucose (Fingerstick) 150mg/dL (70-99) 142mg/dL (70-99) Reticulocyte Count (auto) 1.0% (0.5-2.5) Potassium Level 3.3mmol/L (3.5-5.1) Iron Level 69ug/dL (50-170) Total Iron Binding Capacity 177ug/dL (250-450) Iron Saturation 39% (15-34) Ferritin 98ng/mL (8-252) Test 08/08/16 05:00 08/08/16 11:22 White Blood Count 6.6x10^3/uL (4.0-11.0) Red Blood Count 3.70x10^6/uL (3.50-5.40) Hemoglobin 10.3g/dL (12.0-15.5) Hematocrit 30.4% (36.0-47.0) Mean Corpuscular Volume 82fL (79-100) Mean Corpuscular Hemoglobin 28pg (25-35) Mean Corpuscular Hemoglobin Concent 34g/dL (31-37) Red Cell Distribution Width 16.2% (11.5-14.5) Platelet Count 185x10^3/uL (140-400) Neutrophils (%) (Auto) 66% (31-73) Lymphocytes (%) (Auto) 19% (24-48) Monocytes (%) (Auto) 10% (0-9) Eosinophils (%) (Auto) 4% (0-3) Basophils (%) (Auto) 1% (0-3) Neutrophils # (Auto) 4.4x10^3uL (1.8-7.7) Lymphocytes # (Auto) 1.3x10^3/uL (1.0-4.8) Monocytes # (Auto) 0.7x10^3/uL (0.0-1.1) Eosinophils # (Auto) 0.3x10^3/uL (0.0-0.7) Basophils # (Auto) 0.0x10^3/uL (0.0-0.2) Heparin Anti-Xa Act, Unfractionated 0.47IU/mL (0.30-0.70) Sodium Level 139mmol/L (136-145) Potassium Level 4.1mmol/L (3.5-5.1) Chloride Level 108mmol/L (98-107) Carbon Dioxide Level 25mmol/L (21-32) Anion Gap 6 (6-14) Blood Urea Nitrogen 18mg/dL (7-20) Creatinine 0.9mg/dL (0.6-1.0) Estimated GFR (Cockcroft-Gault) 59.7 Glucose Level 147mg/dL (70-99) Calcium Level 8.3mg/dL (8.5-10.1) Phosphorus Level 2.9mg/dL (2.6-4.7) Magnesium Level 1.8mg/dL (1.8-2.4) Albumin 2.0g/dL (3.4-5.0) Glucose (Fingerstick) 94mg/dL (70-99) Laboratory Tests Test 08/07/16 12:00 08/07/16 16:46 08/07/16 18:15 08/08/16 05:00 Glucose (Fingerstick) 150mg/dL (70-99) 142mg/dL (70-99) Reticulocyte Count (auto) 1.0% (0.5-2.5) Potassium Level 3.3mmol/L (3.5-5.1) 4.1mmol/L (3.5-5.1) Iron Level 69ug/dL (50-170) Total Iron Binding Capacity 177ug/dL (250-450) Iron Saturation 39% (15-34) Ferritin 98ng/mL (8-252) White Blood Count 6.6x10^3/uL (4.0-11.0) Red Blood Count 3.70x10^6/uL (3.50-5.40) Hemoglobin 10.3g/dL (12.0-15.5) Hematocrit 30.4% (36.0-47.0) Mean Corpuscular Volume 82fL (79-100) Mean Corpuscular Hemoglobin 28pg (25-35) Mean Corpuscular Hemoglobin Concent 34g/dL (31-37) Red Cell Distribution Width 16.2% (11.5-14.5) Platelet Count 185x10^3/uL (140-400) Neutrophils (%) (Auto) 66% (31-73) Lymphocytes (%) (Auto) 19% (24-48) Monocytes (%) (Auto) 10% (0-9) Eosinophils (%) (Auto) 4% (0-3) Basophils (%) (Auto) 1% (0-3) Neutrophils # (Auto) 4.4x10^3uL (1.8-7.7) Lymphocytes # (Auto) 1.3x10^3/uL (1.0-4.8) Monocytes # (Auto) 0.7x10^3/uL (0.0-1.1) Eosinophils # (Auto) 0.3x10^3/uL (0.0-0.7) Basophils # (Auto) 0.0x10^3/uL (0.0-0.2) Heparin Anti-Xa Act, Unfractionated 0.47IU/mL (0.30-0.70) Sodium Level 139mmol/L (136-145) Chloride Level 108mmol/L (98-107) Carbon Dioxide Level 25mmol/L (21-32) Anion Gap 6 (6-14) Blood Urea Nitrogen 18mg/dL (7-20) Creatinine 0.9mg/dL (0.6-1.0) Estimated GFR (Cockcroft-Gault) 59.7 Glucose Level 147mg/dL (70-99) Calcium Level 8.3mg/dL (8.5-10.1) Phosphorus Level 2.9mg/dL (2.6-4.7) Magnesium Level 1.8mg/dL (1.8-2.4) Albumin 2.0g/dL (3.4-5.0) Test 08/08/16 11:22 Glucose (Fingerstick) 94mg/dL (70-99) Microbiology 08/04/16 Blood Culture - Preliminary, Resulted NO GROWTH AFTER 4 DAYS 08/04/16 Urine Culture - Final, Complete 08/04/16 Urine Culture Result 1 (AMADOU) - Final, Complete 08/04/16 Gram Stain - Final, Complete Medications Current Medications Acetaminophen 1000 mg 1,000 mg 1X ONCE PO Last administered on 08/03/16 20:02 ; Start 08/03/16 at 20:00; Stop 08/03/16 at 20:01; Status DC Sodium Chloride 1,000 ml @ 1,000 mls/hr 1X ONCE IV Last administered on 20:02; Start 08/03/16 at 20:00; Stop 08/03/16 at 20:59; Status DC Ceftriaxone Sodium 50 ml @ 100 mls/hr 1X ONCE IV Last administered on 22:07; Start 08/03/16 at 21:00; Stop 08/03/16 at 21:29; Status DC Sodium Chloride (Iv Sodium Chloride 0.9% 500ml Bag) 500 ml @ 500 mls/hr 1X ONCE IV Last administered on 08/03/16 23:20; Start 08/03/16 at 21:30; Stop at 22:29; Status DC Ondansetron HCl 4 mg 4 mg PRN Q8HRS PRN IV NAUSEA/VOMITING; Start 08/03/16 at 21 :15; Stop 08/04/16 at 21:14; Status DC Sodium Chloride (Iv Sodium Chloride 0.9% 1000ml Bag) 1,000 ml @ 125 mls/hr Q8H IV Last administered on 08/04/16 05:12; Start 08/03/16 at 21:12; Stop 08/04/16 at 21:11; Status DC Acetaminophen 650 mg 650 mg PRN Q4HRS PRN PO FEVER Last administered on 10:51; Start 08/03/16 at 21:15; Stop 08/04/16 at 21:14; Status DC Vancomycin HCl/ Sodium Chloride (Iv Sodium Chloride 0.9% 500ml Bag) 500 ml @ 250 mls/hr 1X ONCE IV Last administered on 08/04/16 10:54; Start 08/04/16 at 09 :30; Stop 08/04/16 at 11:29; Status DC Vancomycin HCl 1 each 1 each PRN DAILY PRN MC SEE COMMENTS Last administered on 08/04/16 13:22; Start 08/04/16 at 09:15; Stop 08/05/16 at 08:02; Status DC Piperacillin Sod/ Tazobactam Sod/ Sodium Chloride (Zosyn/Iv Sodium Chloride 0.9 % 50ml) 50 ml @ 100 mls/hr Q6HRS IV Last administered on 08/06/16 06:04; Start 08/04/16 at 10:00; Stop 08/06/16 at 12:10; Status DC Vancomycin HCl 125 mg 125 mg [id number] PO Last administered on 08/07/16 21:04; Start 08/04/16 at 10:00 Fluconazole/ Sodium Chloride (Diflucan 200mg/ 100ml Premix) 100 ml @ 100 mls/ hr Q24H IV Last administered on 08/04/16 15:17; Start 08/04/16 at 10:00; Stop at 07:47; Status DC Acetaminophen (Tylenol) 325 mg PRN QID PRN PO FEVER; Start 08/04/16 at 09:30 Acetaminophen/ Codeine Phosphate (Tylenol #3) 1 tab PRN BID PRN PO PAIN; Start 08/04/16 at 09:30 Amitriptyline HCl (Elavil) 25 mg HS PO Last administered on 08/07/16 21:04; Start 08/04/16 at 21:00 Amlodipine Besylate (Norvasc) 5 mg DAILY PO Last administered on 08/04/16 10:52 ; Start 08/04/16 at 10:30; Stop 08/05/16 at 09:21; Status DC Anastrozole (Arimidex) 1 mg DAILY PO Last administered on 08/07/16 08:34; Start 08/04/16 at 10:30 Aspirin (Ecotrin) 81 mg DAILY PO Last administered on 08/07/16 08:40; Start 08/04/16 at 10:30 Clopidogrel Bisulfate (Plavix) 75 mg DAILY PO Last administered on 08/07/16 08: 47; Start 08/04/16 at 10:30 Furosemide (Lasix) 20 mg DAILY PO Last administered on 08/04/16 10:53; Start at 10:30; Stop 08/04/16 at 14:25; Status DC Insulin Aspart (Novolog) 7 units TIDWMEALS SQ Last administered on 08/07/16 17: 24; Start 08/04/16 at 12:00 Insulin Detemir (Levemir) 10 units DAILY@18 SQ ; Start 08/04/16 at 18:00; Stop at 18:00; Status DC Levothyroxine Sodium (Synthroid) 50 mcg DAILY07 PO Last administered on 08:40; Start 08/04/16 at 10:30 Linagliptin (Tradjenta) 5 mg DAILY PO Last administered on 08/07/16 08:47; Start 08/04/16 at 10:30 Lisinopril (Prinivil) 2.5 mg DAILY PO Last administered on 08/04/16 10:51; Start 08/04/16 at 10:30; Stop 08/04/16 at 15:22; Status DC Pantoprazole Sodium (Protonix) 40 mg DAILYAC PO Last administered on 08/07/16 08:40; Start 08/04/16 at 10:30 Pregabalin (Lyrica) 50 mg BID PO Last administered on 08/07/16 21:04; Start 08/04/16 at 10:30 Silver Sulfadiazine (Silvadene) 1 suzanna DAILY TP Last administered on 08/05/16 10 :42; Start 08/04/16 at 10:30 Dextrose 12.5 gm PRN Q15MIN PRN IV SEE COMMENTS; Start 08/04/16 at 09:30; Stop 08/05/16 at 18:24; Status DC Heparin Sodium (Porcine) 5,000 unit Q12HR SQ Last administered on 08/04/16 11: 09; Start 08/04/16 at 10:30; Stop 08/04/16 at 12:39; Status DC Insulin Detemir 20 units 20 units DAILY@18 SQ Last administered on 08/05/16 18: 03; Start 08/04/16 at 18:00; Stop 08/05/16 at 18:23; Status DC Sodium Chloride (Iv Sodium Chloride 0.9% 1000ml Bag) 1,000 ml @ 100 mls/hr Q10H IV ; Start 08/04/16 at 10:30; Stop 08/05/16 at 09:21; Status DC Albuterol Sulfate 2.5 mg 2.5 mg 1X ONCE NEB Last administered on 08/04/16 12: 29; Start 08/04/16 at 12:30; Stop 08/04/16 at 12:31; Status DC Heparin Sodium/ Dextrose 500 ml @ 0 mls/hr CONT PRN IV SEE I/O RECORD Last administered on 08/07/16 13:34; Start 08/04/16 at 12:45 Heparin Sodium (Porcine) 1,600 unit PRN Q6HRS PRN IV FOR UFH LEVEL LESS THAN 0.2; Start 08/04/16 at 12:45 Info (Anti-Coagulation Monitoring By Pharmacy) 1 each PRN DAILY PRN MC SEE COMMENTS Last administered on 08/08/16 08:32; Start 08/04/16 at 12:45 Furosemide (Lasix) 40 mg 1X ONCE IVP Last administered on 08/04/16 13:12; Start 08/04/16 at 13:00; Stop 08/04/16 at 13:01; Status DC Aspirin 325 mg 325 mg 1X ONCE PO Last administered on 08/04/16 15:26; Start at 13:00; Stop 08/04/16 at 13:01; Status DC Vancomycin HCl/ Sodium Chloride (Iv Sodium Chloride 0.9% 250ml) 250 ml @ 167 mls/hr Q24H IV ; Start 08/05/16 at 11:00; Stop 08/05/16 at 11:00; Status DC Vancomycin HCl 1 each 1X ONCE MC ; Start 08/06/16 at 10:30; Stop 08/06/16 at 10: 30; Status DC Insulin Aspart (Novolog) 3 units ONCE ONCE SQ Last administered on 08/04/16 14 :14; Start 08/04/16 at 14:30; Stop 08/04/16 at 14:31; Status DC Furosemide 40 mg 40 mg DAILY IVP Last administered on 08/06/16 09:22; Start 08/04/16 at 15:00; Stop 08/06/16 at 12:13; Status DC Magnesium Sulfate/ Dextrose 100 ml @ 25 mls/hr 1X ONCE IV Last administered on 08/04/16 15:08; Start 08/04/16 at 15:00; Stop 08/04/16 at 18:59; Status DC Potassium Chloride 100 ml @ 100 mls/hr Q1H IV Last administered on 08/04/16 18 :06; Start 08/04/16 at 15:00; Stop 08/04/16 at 16:59; Status DC Sodium Chloride 1,000 ml @ 495 mls/hr Q2H2M IV Last administered on 08/04/16 15:30; Start 08/04/16 at 15:30; Stop 08/04/16 at 19:30; Status DC Norepinephrine Bitartrate/Sodium Chloride (Levophed Vial/ Iv Sodium Chloride 0.9 % 250ml) 258 ml @ 0 mls/hr CONT PRN IV SEE I/O RECORD; Start 08/04/16 at 15:00 Vancomycin HCl 125 mg 125 mg [id number] PO ; Start 08/04/16 at 17:00; Stop 08/05/16 at 08:03; Status DC Sodium Bicarbonate/ Sodium Chloride (Iv Sodium Chloride 0.45%) 1,075 ml @ 100 mls/hr [id number] IV Last administered on 08/05/16 04:45; Start 08/04/16 at 18:00; Stop 08/06/16 at 03:19; Status DC Acetylcysteine (Mucomyst 20% Oral Solution) 1,200 mg BID PO Last administered on 08/06/16 09:21; Start 08/04/16 at 21:00; Stop 08/06/16 at 20:59; Status DC Insulin Aspart 10 units 10 units 1X ONCE SQ Last administered on 08/04/16 22: 55; Start 08/04/16 at 23:00; Stop 08/04/16 at 23:01; Status DC Potassium Chloride (KCl Premix 20meq) 50 ml @ 50 mls/hr Q1H IV ; Start 08/05/16 at 09:00; Stop 08/05/16 at 10:59; Status DC Metoprolol Tartrate (Lopressor) 12.5 mg BID PO Last administered on 08/07/16 21 :05; Start 08/05/16 at 09:15 Atorvastatin Calcium (Lipitor) 10 mg QHS PO Last administered on 08/07/16 21:04 ; Start 08/05/16 at 21:00 Lisinopril 2.5 mg 2.5 mg DAILY PO Last administered on 08/07/16 08:47; Start at 09:15 Magnesium Sulfate/ Dextrose 50 ml @ 25 mls/hr PRN DAILY PRN IV for Mag < 1.7 on am labs; Start 08/05/16 at 10:45; Stop 08/05/16 at 10:45; Status DC Magnesium Sulfate/ Dextrose 50 ml @ 25 mls/hr PRN DAILY PRN IV for Mag < 1.7 on am labs; Start 08/05/16 at 10:45 Potassium Chloride 50 ml @ 50 mls/hr PRN Q6HRS PRN IV For K < 3.7; Start at 10:45 Potassium Chloride 50 ml @ 50 mls/hr PRN Q2HR PRN IV total of 40mEq for K < 3.5; Start 08/05/16 at 10:45 Potassium Acetate 20 meq/Sodium Chloride 110 ml @ 55 mls/hr Q2H IV Last administered on 08/05/16 11:59; Start 08/05/16 at 11:00; Stop 08/05/16 at 14:59; Status DC Potassium Acetate/ Sodium Chloride (Iv Sodium Chloride 0.9% 100ml) 110 ml @ 55 mls/hr Q2H IV Last administered on 08/05/16 21:40; Start 08/05/16 at 17:00; Stop 08/05/16 at 20:59; Status DC Insulin Detemir (Levemir) 30 units DAILY@18 SQ Last administered on 08/07/16 17 :25; Start 08/05/16 at 18:00 Insulin Aspart (Novolog) 0-7 UNITS TIDWMEALS SQ Last administered on 08/06/16 17:32; Start 08/06/16 at 08:00 Dextrose 12.5 gm PRN Q15MIN PRN IV SEE COMMENTS; Start 08/05/16 at 18:30 Insulin Detemir (Levemir) 10 units 1X ONCE SQ Last administered on 08/05/16 21 :42; Start 08/05/16 at 18:30; Stop 08/05/16 at 18:31; Status DC Insulin Aspart (Novolog) 7 units 1X ONCE SQ Last administered on 08/05/16 21: 42; Start 08/05/16 at 18:45; Stop 08/05/16 at 18:46; Status DC Lactobacillus Acidophilus 1 tab 1 tab TIDWMEALS PO Last administered on 17:18; Start 08/06/16 at 12:30 Potassium Phosphate 13.6 mmol/Sodium Chloride 104.5333 ml @ 52.267 m... Q2H IV Last administered on 08/06/16 18:59; Start 08/06/16 at 13:00; Stop 08/06/16 at 18:59; Status DC Sodium Bicarbonate/ Potassium Acetate/ Sodium Chloride (Iv Sodium Chloride 0.45% ) 1,070 ml @ 75 mls/hr [id number] IV ; Start 08/06/16 at 12:30; Stop 08/06/16 at 12: 30; Status DC Furosemide (Lasix) 20 mg 1X ONCE IVP Last administered on 08/07/16 12:04; Start 08/07/16 at 08:00; Stop 08/07/16 at 08:01; Status DC Darbepoetin Aidan (Aranesp) 60 mcg 1X ONCE SQ Last administered on 08/07/16 12: 03; Start 08/07/16 at 11:30; Stop 08/07/16 at 11:31; Status DC Acetylcysteine (Mucomyst 20% Oral Solution) 1,200 mg BID PO Last administered on 08/07/16 21:05; Start 08/07/16 at 21:00; Stop 08/09/16 at 20:59 Fluconazole 100 mg 100 mg DAILY PO Last administered on 08/07/16 13:33; Start 08/07/16 at 12:00 Potassium Chloride (KCl Premix 20meq) 50 ml @ 50 mls/hr Q1H IV Last administered on 08/08/16 01:00; Start 08/08/16 at 00:00; Stop 08/08/16 at 01:59; Status DC Active Scripts Active Novolog Flexpen (Insulin Aspart) 300 Units/3 Ml Insuln.pen 7 Units SQ TIDWMEALS Reported Afeww-Uxhwpqy-Cpfjvwfm Tablet (Multivit-Min/Iron Fum/Folic AC) 1 Each Tablet 1 Each PO Acetaminophen 325 Mg Tablet 325 Mg PO Silvadene (Silver Sulfadiazine) 20 Gm Cream..g. 1 Suzanna TP DAILY Levemir Flextouch (Insulin Detemir) 100 Unit/1 Ml Insuln.pen 100 Unit SQ Levothyroxine Sodium 50 Mcg Tablet 1 Tab PO DAILY Acidophilus (Lactobacillus Acidophilus) 1 Each Capsule 1 Each PO Lasix (Furosemide) 20 Mg Tablet 1 Tab PO DAILY Protonix (Pantoprazole Sodium) 40 Mg Tablet. 1 Tab PO DAILY Peridex (Chlorhexidine Gluconate) 15 Ml Mouthwash 15 Ml Cefepime Hcl 1 Gm Vial 1 Gm IJ Amlodipine Besylate 5 Mg Tablet 5 Mg PO DAILY Acetaminophen-Cod #3 Tablet (Acetaminophen/Codeine Phosphate) 1 Each Tablet 1 Tab PO BID PRN Lyrica (Pregabalin) 50 Mg Capsule 50 Mg PO BID Aspir 81 (Aspirin) 81 Mg Tablet. 81 Mg PO DAILY Lisinopril 2.5 Mg Tablet 2.5 Mg PO DAILY Tradjenta (Linagliptin) 5 Mg Tablet 5 Mg PO DAILY Clopidogrel (Clopidogrel Bisulfate) 75 Mg Tablet 75 Mg PO DAILY Amitriptyline Hcl 25 Mg Tablet 25 Mg PO HS Anastrozole 1 Mg Tablet 1 Mg PO DAILY Vitals/I & O Vital Sign - Last 24 Hours 08/07/16 08/07/16 08/07/16 08/07/16 11:44 12:00 12:00 12:22 Temp 99.1 99.1 99.1 99.1 99.1 99.1 Pulse 81 78 74 Resp B/P 145/69 128/59 128/59 Pulse Ox 97 O2 Delivery Nasal Cannula Nasal Cannula O2 Flow Rate 2.0 2.0 08/07/16 08/07/16 08/07/16 08/07/16 12:46 13:00 13:22 14:00 Temp 98.1 98.8 99.1 98.1 98.8 99.1 Pulse 78 78 74 78 Resp 18 B/P 143/59 165/76 132/56 147/73 Pulse Ox 99 O2 Delivery Nasal Cannula O2 Flow Rate 2.0 08/07/16 08/07/16 08/07/16 08/07/16 16:00 20:00 20:00 21:05 Temp 98.9 98.4 98.9 98.4 Pulse 77 84 82 Resp 22 B/P 152/61 166/70 166/70 Pulse Ox 97 95 O2 Delivery Nasal Cannula Nasal Cannula Nasal Cannula O2 Flow Rate 2.0 2.0 2.0 08/08/16 08/08/16 08/08/16 08/08/16 00:00 04:00 08:00 08:04 Temp 98.7 98.6 98.5 98.7 98.6 98.5 Pulse 62 75 75 Resp 22 23 23 B/P 141/50 139/67 139/67 Pulse Ox 94 96 96 O2 Delivery Nasal Cannula Nasal Cannula Nasal Cannula Nasal Cannula O2 Flow Rate 2.0 2.0 2.0 2.0 08/08/16 10:21 Pulse 82 Resp 22 B/P 167/103 Pulse Ox 95 O2 Delivery Nasal Cannula O2 Flow Rate 2.0 Intake and Output 08/07/16 08/07/16 08/08/16 15:00 23:00 07:00 Intake Total 927 ml 2739 ml 349.8 ml Output Total 465 ml 985 ml 1000 ml Balance 462 ml 1754 ml -650.2 ml DENNIS MARTIN APRN Aug 08, 2016 11:47
[2016-08-08] MEDS ORDERED: FENTANYL PF 100 MCG/2 ML VIAL. ONE (11:52)
[2016-08-08] MEDS ORDERED: HEPARIN for IV BOLUS 10,000 UNIT/10 ML VIAL. ONE (11:52)
[2016-08-08] MEDS ORDERED: MIDAZOLAM HCL 2 MG/2 ML VIAL. ONE (11:52)
[2016-08-08] MEDS ORDERED: VERAPAMIL 5 MG/2 ML VIAL. ONE (11:52)
[2016-08-08] MEDS ORDERED: NITROGLYCERIN 200 MCG/2 ML SYRINGE FOR CATH/VASC LAB. ONE (11:52)
[2016-08-08] MEDS ORDERED: FENTANYL PF 100 MCG/2 ML VIAL. IV ONE (13:15)
[2016-08-08] MEDS ORDERED: HEPARIN for IV BOLUS 10,000 UNIT/10 ML VIAL. IART ONE (13:15)
[2016-08-08] MEDS ORDERED: MIDAZOLAM HCL 2 MG/2 ML VIAL. IV ONE (13:15)
[2016-08-08] MEDS ORDERED: VERAPAMIL 5 MG/2 ML VIAL. IART ONE (13:15)
[2016-08-08] MEDS ORDERED: NITROGLYCERIN 200 MCG/2 ML SYRINGE FOR CATH/VASC LAB. IART ONE (13:15)
[2016-08-08] MEDS ORDERED: IOHEXOL 300 MG/ML 50 ML VIAL. IART ONE (13:15)
[2016-08-08] MEDS ORDERED: LIDOCAINE 2% 20 ML VIAL. IJ ONE (13:15)
[2016-08-08] MEDS: PREGABALIN 50 MG CAPSULE PO SCH ×2 (13:41→21:23)
[2016-08-08] MEDS: CLOPIDOGREL BISULFATE 75 MG TABLET PO SCH (13:41)
[2016-08-08] MEDS: FLUCONAZOLE 100 MG TABLET. PO SCH (13:41)
[2016-08-08] MEDS: METOPROLOL TART IMMED RELEASE 25 MG TABLET PO SCH ×2 (13:42→21:24)
[2016-08-08] MEDS: ASPIRIN ENTERIC COATED 81 MG TABLET.DR. PO SCH (13:42)
[2016-08-08] MEDS: LINAGLIPTIN 5 MG TABLET PO SCH (13:42)
[2016-08-08] MEDS: LISINOPRIL 2.5 MG TABLET PO SCH (13:42)
[2016-08-08] MEDS: silver sulfADIAZINE 1% CREAM 25GM TUBE. TP SCH (13:43)
[2016-08-08] MEDS: ANASTROZOLE 1 MG TABLET PO SCH (13:48)
[2016-08-08] MEDS: hydrALAZINE 20 MG/ML VIAL. IVP PRN ×2 (14:57→22:18)
--- NOTE | 2016-08-08 15:08 | CARD ---
APPROVED REPORT Procedure(s) performed: Left heart catheterization, selective coronary angiography and left ventricul ography via right transradial approach INDICATION The indication(s) include : non-STEMI . PROCEDURE NARRATIVE After explaining the risks, benefits and alternative options, informed consent was obtained from katelyn ent. Patient was brought to the cardiac [employer] and right wrist was prepped and draped in the usual fashion after confirming a positive modified Simon's test. Arterial access was obtained in the [facility] radial artery and a 6 Nepalese sheath was inserted. A 5 Nepalese JL 3.5 and 5 Nepalese JR4 catheters wer e used to perform selective angiography of the left and right coronary arteries respectively after in itial attempts to engage these vessels with 6 Nepalese Tim catheter were unsuccessful. 5 Nepalese pig tail catheter was used to perform left ventriculography. Patient tolerated the procedure well. Hemo stasis was achieved using TR band. There were no immediate complications. The following findings we re noted. FINDINGS 1. Hemodynamics: Left ventricular end-diastolic pressure of 29 mmHg. No pullback gradient across th e aortic valve. 2. Left ventriculography: Mild global left ventricular systolic dysfunction with ejection fraction e stimated at 40-45%. No significant mitral regurgitation seen. 3. Coronary angiography: a. The left main coronary artery arose from the left sinus of Valsalva, gave rise to the left anteri or descending and left circumflex arteries and showed 60-70% proximal segment stenosis. b. The left anterior descending artery showed 50% stenosis the proximal segment, 60% stenosis in the midsegment and 70% stenosis in the mid to distal segment. The first diagonal branch which is a smal l caliber vessel showed 70% proximal segment stenosis. The second diagonal branch which is a medium caliber vessel showed 80% stenosis in the proximal segment. c. The left circumflex artery showed critical 90-95% stenosis involving the proximal segment. d. The right coronary artery was a large and dominant vessel arising from the right sinus of Valsalv a that showed 90% stenosis in the midsegment. The posterolateral branch showed 90% stenosis in the p roximal to midsegment. The posterior descending artery showed severe diffuse disease. Conclusion 1. Severe three-vessel coronary artery disease 2. Mild global left ventricular systolic dysfunction with ejection fraction estimated at 40-45% Recommendations Cardiothoracic surgery team referral for possible coronary artery bypass surgery. If patient is deemed a poor surgical candidate, we will consider high risk PCI with hemodynamic suppo rt from Impella percutaneous ventricular assist device.
--- NOTE | 2016-08-08 16:51 | PDOC2 ---
CONSULT Date of Consult Date of Consult DATE: 08/08/16 TIME: 16:48 Reason for Consult Reason for Consult: Three-vessel coronary artery disease Referring Physician Referring Physician: Corby Oneal MD Identification/Chief Complaint Chief Complaint Sepsis Source Source: Chart review, Patient History of Present Illness Reason for Visit: The patient is an 86-year-old female was admitted on August 04 with sepsis. Possible sources include bacteremia from a PICC vs urosepsis vs C. difficile colitis vs open toe amputation wound. The patient has a history of diabetes, hypertension and severe peripheral vascular disease for which she required a left fifth toe amputation approximately a month ago. She was placed on long- term intravenous antibiotics via PICC line. She was admitted 4 days ago with severe sepsis requiring vasopressors. She also developed a non-STEMI with a troponin leak which peaked at 9. She had an echo which showed an ejection fraction of 40-45% and no valvular disease. She had a left heart catheterization today which showed a 60% left main disease, multiple stenosis in a relatively small LAD, a proximal second diagonal stenosis which was of moderate size, a tight stenosis at a very small left circumflex, and a dominant RCA with a tight stenosis in its mid and distal segment which is followed by a small PDA which is diffusely diseased and a RPL which has a 80% proximal stenosis. I was consulted to consider the patient for surgical coronary revascularization. Past Medical History Cardiovascular: HTN, Hyperlipidemia, Other (PAD) Pulmonary: No pertinent hx CENTRAL NERVOUS SYSTEM: Periperal neuropathy, Vertigo GI: GERD Heme/Onc: Anemia NOS, Cancer Hepatobiliary: No pertinent hx Psych: Anxiety Musculoskeletal: Osteoarthritis, Other (osteomyelitis) Rheumatologic: No pertinent hx Infectious disease: No pertinent hx ENT: Other (glaucoma) Renal/: Chronic renal insuff, Urinary Incontinence Endocrine: Diabetes (2), Hypothyroidism, Osteoporosis Past Surgical History Past Surgical History: Cholecystectomy, Cataract Removal, Mastectomy (left), Other (left fifth toe amputation) Family History Family History: Diabetes Social History No ALCOHOL: none Drugs: None Lives: with Family Current Problem List Problem List Problems Medical Problems: (1) NSTEMI (non-ST elevated myocardial infarction) Status: Acute (2) Sepsis Status: Acute (3) Urinary tract infection Status: Acute Current Medications Current Medications Current Medications Acetaminophen 1000 mg 1,000 mg 1X ONCE PO Last administered on 08/03/16t 20:02 ; Start 08/03/16 at 20:00; Stop 08/03/16 at 20:01; Status DC Sodium Chloride 1,000 ml @ 1,000 mls/hr 1X ONCE IV Last administered on 20:02; Start 08/03/16 at 20:00; Stop 08/03/16 at 20:59; Status DC Ceftriaxone Sodium 50 ml @ 100 mls/hr 1X ONCE IV Last administered on 22:07; Start 08/03/16 at 21:00; Stop 08/03/16 at 21:29; Status DC Sodium Chloride (Iv Sodium Chloride 0.9% 500ml Bag) 500 ml @ 500 mls/hr 1X ONCE IV Last administered on 08/03/16 23:20; Start 08/03/16 at 21:30; Stop at 22:29; Status DC Ondansetron HCl 4 mg 4 mg PRN Q8HRS PRN IV NAUSEA/VOMITING; Start 08/03/16 at 21 :15; Stop 08/04/16 at 21:14; Status DC Sodium Chloride (Iv Sodium Chloride 0.9% 1000ml Bag) 1,000 ml @ 125 mls/hr Q8H IV Last administered on 08/04/16 05:12; Start 08/03/16 at 21:12; Stop 08/04/16 at 21:11; Status DC Acetaminophen 650 mg 650 mg PRN Q4HRS PRN PO FEVER Last administered on 10:51; Start 08/03/16 at 21:15; Stop 08/04/16 at 21:14; Status DC Vancomycin HCl/ Sodium Chloride (Iv Sodium Chloride 0.9% 500ml Bag) 500 ml @ 250 mls/hr 1X ONCE IV Last administered on 08/04/16 10:54; Start 08/04/16 at 09 :30; Stop 08/04/16 at 11:29; Status DC Vancomycin HCl 1 each 1 each PRN DAILY PRN MC SEE COMMENTS Last administered on 08/04/16 13:22; Start 08/04/16 at 09:15; Stop 08/05/16 at 08:02; Status DC Piperacillin Sod/ Tazobactam Sod/ Sodium Chloride (Zosyn/Iv Sodium Chloride 0.9 % 50ml) 50 ml @ 100 mls/hr Q6HRS IV Last administered on 08/06/16 06:04; Start 08/04/16 at 10:00; Stop 08/06/16 at 12:10; Status DC Vancomycin HCl 125 mg 125 mg [id number] PO Last administered on 08/08/16 13:43; Start 08/04/16 at 10:00 Fluconazole/ Sodium Chloride (Diflucan 200mg/ 100ml Premix) 100 ml @ 100 mls/ hr Q24H IV Last administered on 08/04/16 15:17; Start 08/04/16 at 10:00; Stop at 07:47; Status DC Acetaminophen (Tylenol) 325 mg PRN QID PRN PO FEVER; Start 08/04/16 at 09:30 Acetaminophen/ Codeine Phosphate (Tylenol #3) 1 tab PRN BID PRN PO PAIN; Start 08/04/16 at 09:30 Amitriptyline HCl (Elavil) 25 mg HS PO Last administered on 08/07/16 21:04; Start 08/04/16 at 21:00 Amlodipine Besylate (Norvasc) 5 mg DAILY PO Last administered on 08/04/16 10:52 ; Start 08/04/16 at 10:30; Stop 08/05/16 at 09:21; Status DC Anastrozole (Arimidex) 1 mg DAILY PO Last administered on 08/08/16 13:48; Start 08/04/16 at 10:30 Aspirin (Ecotrin) 81 mg DAILY PO Last administered on 08/08/16 13:42; Start 08/04/16 at 10:30 Clopidogrel Bisulfate (Plavix) 75 mg DAILY PO Last administered on 08/08/16 13: 41; Start 08/04/16 at 10:30 Furosemide (Lasix) 20 mg DAILY PO Last administered on 08/04/16 10:53; Start at 10:30; Stop 08/04/16 at 14:25; Status DC Insulin Aspart (Novolog) 7 units TIDWMEALS SQ Last administered on 08/07/16 17: 24; Start 08/04/16 at 12:00 Insulin Detemir (Levemir) 10 units DAILY@18 SQ ; Start 08/04/16 at 18:00; Stop at 18:00; Status DC Levothyroxine Sodium (Synthroid) 50 mcg DAILY07 PO Last administered on 08:40; Start 08/04/16 at 10:30 Linagliptin (Tradjenta) 5 mg DAILY PO Last administered on 08/08/16 13:42; Start 08/04/16 at 10:30 Lisinopril (Prinivil) 2.5 mg DAILY PO Last administered on 08/04/16 10:51; Start 08/04/16 at 10:30; Stop 08/04/16 at 15:22; Status DC Pantoprazole Sodium (Protonix) 40 mg DAILYAC PO Last administered on 08/07/16 08:40; Start 08/04/16 at 10:30 Pregabalin (Lyrica) 50 mg BID PO Last administered on 08/08/16 13:41; Start 08/04/16 at 10:30 Silver Sulfadiazine (Silvadene) 1 suzanna DAILY TP Last administered on 08/08/16 13 :43; Start 08/04/16 at 10:30 Dextrose 12.5 gm PRN Q15MIN PRN IV SEE COMMENTS; Start 08/04/16 at 09:30; Stop 08/05/16 at 18:24; Status DC Heparin Sodium (Porcine) 5,000 unit Q12HR SQ Last administered on 08/04/16 11: 09; Start 08/04/16 at 10:30; Stop 08/04/16 at 12:39; Status DC Insulin Detemir 20 units 20 units DAILY@18 SQ Last administered on 08/05/16 18: 03; Start 08/04/16 at 18:00; Stop 08/05/16 at 18:23; Status DC Sodium Chloride (Iv Sodium Chloride 0.9% 1000ml Bag) 1,000 ml @ 100 mls/hr Q10H IV ; Start 08/04/16 at 10:30; Stop 08/05/16 at 09:21; Status DC Albuterol Sulfate 2.5 mg 2.5 mg 1X ONCE NEB Last administered on 08/04/16 12: 29; Start 08/04/16 at 12:30; Stop 08/04/16 at 12:31; Status DC Heparin Sodium/ Dextrose 500 ml @ 0 mls/hr CONT PRN IV SEE I/O RECORD Last administered on 08/07/16 13:34; Start 08/04/16 at 12:45 Heparin Sodium (Porcine) 1,600 unit PRN Q6HRS PRN IV FOR UFH LEVEL LESS THAN 0.2; Start 08/04/16 at 12:45 Info (Anti-Coagulation Monitoring By Pharmacy) 1 each PRN DAILY PRN MC SEE COMMENTS Last administered on 08/08/16 08:32; Start 08/04/16 at 12:45 Furosemide (Lasix) 40 mg 1X ONCE IVP Last administered on 08/04/16 13:12; Start 08/04/16 at 13:00; Stop 08/04/16 at 13:01; Status DC Aspirin 325 mg 325 mg 1X ONCE PO Last administered on 08/04/16 15:26; Start at 13:00; Stop 08/04/16 at 13:01; Status DC Vancomycin HCl/ Sodium Chloride (Iv Sodium Chloride 0.9% 250ml) 250 ml @ 167 mls/hr Q24H IV ; Start 08/05/16 at 11:00; Stop 08/05/16 at 11:00; Status DC Vancomycin HCl 1 each 1X ONCE MC ; Start 08/06/16 at 10:30; Stop 08/06/16 at 10: 30; Status DC Insulin Aspart (Novolog) 3 units ONCE ONCE SQ Last administered on 08/04/16 14 :14; Start 08/04/16 at 14:30; Stop 08/04/16 at 14:31; Status DC Furosemide 40 mg 40 mg DAILY IVP Last administered on 08/06/16 09:22; Start 08/04/16 at 15:00; Stop 08/06/16 at 12:13; Status DC Magnesium Sulfate/ Dextrose 100 ml @ 25 mls/hr 1X ONCE IV Last administered on 08/04/16 15:08; Start 08/04/16 at 15:00; Stop 08/04/16 at 18:59; Status DC Potassium Chloride 100 ml @ 100 mls/hr Q1H IV Last administered on 08/04/16 18 :06; Start 08/04/16 at 15:00; Stop 08/04/16 at 16:59; Status DC Sodium Chloride 1,000 ml @ 495 mls/hr Q2H2M IV Last administered on 08/04/16 15:30; Start 08/04/16 at 15:30; Stop 08/04/16 at 19:30; Status DC Norepinephrine Bitartrate/Sodium Chloride (Levophed Vial/ Iv Sodium Chloride 0.9 % 250ml) 258 ml @ 0 mls/hr CONT PRN IV SEE I/O RECORD; Start 08/04/16 at 15:00 Vancomycin HCl 125 mg 125 mg [id number] PO ; Start 08/04/16 at 17:00; Stop 08/05/16 at 08:03; Status DC Sodium Bicarbonate/ Sodium Chloride (Iv Sodium Chloride 0.45%) 1,075 ml @ 100 mls/hr [id number] IV Last administered on 08/05/16 04:45; Start 08/04/16 at 18:00; Stop 08/06/16 at 03:19; Status DC Acetylcysteine (Mucomyst 20% Oral Solution) 1,200 mg BID PO Last administered on 08/06/16 09:21; Start 08/04/16 at 21:00; Stop 08/06/16 at 20:59; Status DC Insulin Aspart 10 units 10 units 1X ONCE SQ Last administered on 08/04/16 22: 55; Start 08/04/16 at 23:00; Stop 08/04/16 at 23:01; Status DC Potassium Chloride (KCl Premix 20meq) 50 ml @ 50 mls/hr Q1H IV ; Start 08/05/16 at 09:00; Stop 08/05/16 at 10:59; Status DC Metoprolol Tartrate (Lopressor) 12.5 mg BID PO Last administered on 08/08/16 13 :42; Start 08/05/16 at 09:15 Atorvastatin Calcium (Lipitor) 10 mg QHS PO Last administered on 08/07/16 21:04 ; Start 08/05/16 at 21:00 Lisinopril 2.5 mg 2.5 mg DAILY PO Last administered on 08/08/16 13:42; Start at 09:15 Magnesium Sulfate/ Dextrose 50 ml @ 25 mls/hr PRN DAILY PRN IV for Mag < 1.7 on am labs; Start 08/05/16 at 10:45; Stop 08/05/16 at 10:45; Status DC Magnesium Sulfate/ Dextrose 50 ml @ 25 mls/hr PRN DAILY PRN IV for Mag < 1.7 on am labs; Start 08/05/16 at 10:45 Potassium Chloride 50 ml @ 50 mls/hr PRN Q6HRS PRN IV For K < 3.7; Start at 10:45 Potassium Chloride 50 ml @ 50 mls/hr PRN Q2HR PRN IV total of 40mEq for K < 3.5; Start 08/05/16 at 10:45 Potassium Acetate 20 meq/Sodium Chloride 110 ml @ 55 mls/hr Q2H IV Last administered on 08/05/16 11:59; Start 08/05/16 at 11:00; Stop 08/05/16 at 14:59; Status DC Potassium Acetate/ Sodium Chloride (Iv Sodium Chloride 0.9% 100ml) 110 ml @ 55 mls/hr Q2H IV Last administered on 08/05/16 21:40; Start 08/05/16 at 17:00; Stop 08/05/16 at 20:59; Status DC Insulin Detemir (Levemir) 30 units DAILY@18 SQ Last administered on 08/07/16 17 :25; Start 08/05/16 at 18:00 Insulin Aspart (Novolog) 0-7 UNITS TIDWMEALS SQ Last administered on 08/06/16 17:32; Start 08/06/16 at 08:00 Dextrose 12.5 gm PRN Q15MIN PRN IV SEE COMMENTS; Start 08/05/16 at 18:30 Insulin Detemir (Levemir) 10 units 1X ONCE SQ Last administered on 08/05/16 21 :42; Start 08/05/16 at 18:30; Stop 08/05/16 at 18:31; Status DC Insulin Aspart (Novolog) 7 units 1X ONCE SQ Last administered on 08/05/16 21: 42; Start 08/05/16 at 18:45; Stop 08/05/16 at 18:46; Status DC Lactobacillus Acidophilus 1 tab 1 tab TIDWMEALS PO Last administered on 13:41; Start 08/06/16 at 12:30 Potassium Phosphate 13.6 mmol/Sodium Chloride 104.5333 ml @ 52.267 m... Q2H IV Last administered on 08/06/16 18:59; Start 08/06/16 at 13:00; Stop 08/06/16 at 18:59; Status DC Sodium Bicarbonate/ Potassium Acetate/ Sodium Chloride (Iv Sodium Chloride 0.45% ) 1,070 ml @ 75 mls/hr [id number] IV ; Start 08/06/16 at 12:30; Stop 08/06/16 at 12: 30; Status DC Furosemide (Lasix) 20 mg 1X ONCE IVP Last administered on 08/07/16 12:04; Start 08/07/16 at 08:00; Stop 08/07/16 at 08:01; Status DC Darbepoetin Aidan (Aranesp) 60 mcg 1X ONCE SQ Last administered on 08/07/16 12: 03; Start 08/07/16 at 11:30; Stop 08/07/16 at 11:31; Status DC Acetylcysteine (Mucomyst 20% Oral Solution) 1,200 mg BID PO Last administered on 08/08/16 13:52; Start 08/07/16 at 21:00; Stop 08/09/16 at 20:59 Fluconazole 100 mg 100 mg DAILY PO Last administered on 08/08/16 13:41; Start 08/07/16 at 12:00 Potassium Chloride (KCl Premix 20meq) 50 ml @ 50 mls/hr Q1H IV Last administered on 08/08/16 01:00; Start 08/08/16 at 00:00; Stop 08/08/16 at 01:59; Status DC Lidocaine HCl 20 ml 20 ml STK-MED ONCE .ROUTE ; Start 08/08/16 at 11:47; Stop 08/08/16 at 11:48; Status DC Heparin Sodium/ Sodium Chloride 500 ml @ As Directed STK-MED ONCE .ROUTE ; Start 08/08/16 at 11:47; Stop 08/08/16 at 11:48; Status DC Iohexol (Omnipaque 300 Mg/ml) 100 ml STK-MED ONCE .ROUTE ; Start 08/08/16 at 11: 47; Stop 08/08/16 at 11:48; Status DC Nitroglycerin (Nitroglycerin) 200 mcg STK-MED ONCE .ROUTE ; Start 08/08/16 at 11: 52; Stop 08/08/16 at 11:53; Status DC Verapamil HCl (Verapamil) 5 mg STK-MED ONCE .ROUTE ; Start 08/08/16 at 11:52; Stop 08/08/16 at 11:53; Status DC Midazolam HCl (Versed) 2 mg STK-MED ONCE .ROUTE ; Start 08/08/16 at 11:52; Stop 08/08/16 at 11:53; Status DC Fentanyl Citrate (Fentanyl 2ml Vial) 100 mcg STK-MED ONCE .ROUTE ; Start at 11:52; Stop 08/08/16 at 11:53; Status DC Heparin Sodium (Porcine) 10,000 unit STK-MED ONCE .ROUTE ; Start 08/08/16 at 11: 52; Stop 08/08/16 at 11:53; Status DC Nitroglycerin (Nitroglycerin) 400 mcg 1X ONCE IART Last administered on 13:15; Start 08/08/16 at 13:15; Stop 08/08/16 at 13:16; Status DC Verapamil HCl (Verapamil) 5 mg 1X ONCE IART Last administered on 08/08/16 13: 15; Start 08/08/16 at 13:15; Stop 08/08/16 at 13:16; Status DC Heparin Sodium (Porcine) 2,500 unit 1X ONCE IART Last administered on 13:15; Start 08/08/16 at 13:15; Stop 08/08/16 at 13:16; Status DC Heparin Sodium/ Sodium Chloride 1,000 unit 1X ONCE IART Last administered on 13:15; Start 08/08/16 at 13:15; Stop 08/08/16 at 13:16; Status DC Midazolam HCl (Versed) 1.5 mg 1X ONCE IV Last administered on 08/08/16 13:15; Start 08/08/16 at 13:15; Stop 08/08/16 at 13:16; Status DC Fentanyl Citrate (Fentanyl 2ml Vial) 75 mcg 1X ONCE IV Last administered on 13:15; Start 08/08/16 at 13:15; Stop 08/08/16 at 13:16; Status DC Iohexol (Omnipaque 300 Mg/ml) 140 ml 1X ONCE IART Last administered on 13:15; Start 08/08/16 at 13:15; Stop 08/08/16 at 13:16; Status DC Lidocaine HCl 1 ml 1X ONCE IJ Last administered on 08/08/16t 12:43; Start at 13:15; Stop 08/08/16 at 13:16; Status DC Hydralazine HCl (Apresoline) 10 mg PRN Q4HRS PRN IVP ELEVATED BP, SEE COMMENTS Last administered on 08/08/16 14:57; Start 08/08/16 at 15:00 Active Scripts Active Novolog Flexpen (Insulin Aspart) 300 Units/3 Ml Insuln.pen 7 Units SQ TIDWMEALS Reported Xemni-Fgselxy-Eydqdnae Tablet (Multivit-Min/Iron Fum/Folic AC) 1 Each Tablet 1 Each PO Acetaminophen 325 Mg Tablet 325 Mg PO Silvadene (Silver Sulfadiazine) 20 Gm Cream..g. 1 Suzanna TP DAILY Levemir Flextouch (Insulin Detemir) 100 Unit/1 Ml Insuln.pen 100 Unit SQ Levothyroxine Sodium 50 Mcg Tablet 1 Tab PO DAILY Acidophilus (Lactobacillus Acidophilus) 1 Each Capsule 1 Each PO Lasix (Furosemide) 20 Mg Tablet 1 Tab PO DAILY Protonix (Pantoprazole Sodium) 40 Mg Tablet.dr 1 Tab PO DAILY Peridex (Chlorhexidine Gluconate) 15 Ml Mouthwash 15 Ml Cefepime Hcl 1 Gm Vial 1 Gm IJ Amlodipine Besylate 5 Mg Tablet 5 Mg PO DAILY Acetaminophen-Cod #3 Tablet (Acetaminophen/Codeine Phosphate) 1 Each Tablet 1 Tab PO BID PRN Lyrica (Pregabalin) 50 Mg Capsule 50 Mg PO BID Aspir 81 (Aspirin) 81 Mg Tablet.dr 81 Mg PO DAILY Lisinopril 2.5 Mg Tablet 2.5 Mg PO DAILY Tradjenta (Linagliptin) 5 Mg Tablet 5 Mg PO DAILY Clopidogrel (Clopidogrel Bisulfate) 75 Mg Tablet 75 Mg PO DAILY Amitriptyline Hcl 25 Mg Tablet 25 Mg PO HS Anastrozole 1 Mg Tablet 1 Mg PO DAILY Allergies Allergies: Coded Allergies: No Known Drug Allergies (Unverified , 04/29/14) ROS General: No: Appetite, Chills, Fatigue, Malaise, Night Sweats PSYCHOLOGICAL ROS: No: Anxiety, Behavioral Disorder, Concentration difficultie , Decreased libido, Depression, Disorientation, Hallucinations, Hostility, Irritablity, Memory difficulties, Mood Swings, Obsessive thoughts, Physical abuse, Sexual abuse, Sleep disturbances, Suicidal ideation Eyes: No Blurry vision, No Decreased vision, No Double vision, No Dry eyes, No Excessive tearing, No Eye Pain, No Itchy Eyes, No Loss of vision, No Photophobia , No Scotomata, No Uses contacts, No Uses glasses HEENT: No: Epistaxis, Heacaches, Hearing change, Nasal congestion, Nasal discharge, Oral lesions, Sinus pain, Sneezing, Snoring, Sore Throat, Tinnitus, Vertigo, Visual Changes, Vocal changes ALLERGY AND IMMUNOLOGY: No: Hives, Insect Bite Sensitivity, Itchy/Watery Eyes, Nasal Congestion, Post Nasal Drip, Seasonal Allergies Hematological and Lymphatic: No: Bleeding Problems, Blood Clots, Blood Transfusions, Brusing, Night Sweats, Pallor, Swollen Lymph Nodes ENDOCRINE: No: Breast Changes, Galactorrhea, Hair Pattern Changes, Hot Flashes , Malaise/lethargy, Mood Swings, Palpitations, Polydipsia/polyuria, Skin Changes , Temperature Intolerance, Unexpected Weight Changes Breast: No New/Changing Breast Lumps, No Nipple changes, No Nipple discharge Respiratory: No: Cough, Hemoptysis, Orthopnea, Pleuritic Pain, SOB with excertion, Shortness of breath, Sputum Changes, Stridor, Tachypnea, Wheezing Cardiovascular: No Chest Pain, No Edema, No Lt Headedness, No Orthopnea, No Palpitations, No Paroxysmal Noc. Dyspnea Gastrointestinal: No Abdominal Pain, No Constipation, No Diarrhea, No Hematochezia, No Melena, No Nausea, No Vomiting Genitourinary: No Discharge, No Dysuria, No Flank Pain, No Frequency, No Hematuria, No Incontinence, No Pain, No Retention, No Urgency Musculoskeletal: No Gait Disturbance, No Joint Pain, No Joint Stiffness, No Joint Swelling, No Muscle Pain, No Muscular Weakness, No Pain In:, No Swelling In: Neurological: No Behavorial Changes, No Bowel/Bladder ControlChng, No Confusion , No Dizziness, No Gait Disturbance, No Headaches, No Impaired Coord/balance, No Memory Loss, No Numbness/Tingling, No Seizures, No Speech Problems, No Tremors, No Visual Changes, No Weakness Skin: No Acne, No Dry Skin, No Eczema, No Hair Changes, No Lumps, No Mole Changes, No Mottling, No Nail Changes, No Pruritus, No Rash, No Skin Lesion Changes Physical Exam General: Alert, Oriented X3 HEENT: Atraumatic Lungs: Clear to auscultation Heart: Regular rate, Normal S1, Normal S2, No murmurs Abdomen: Soft Extremities: No edema Skin: No breakdown Neuro: Normal speech, Strength at 5/5 X4 ext, Sensation intact, Cranial nerves 3-12 NL Psych/Mental Status: Mental status NL MUSCULOSKELETAL: No deformity Vitals VITALS Vital Signs Date Time Temp Pulse Resp B/P Pulse Ox O2 Delivery O2 Flow Rate FiO2 08/08/16 15:09 86 22 169/83 98 Nasal Cannula 2.0 08/08/16 08:00 98.5 98.5 Labs Labs Laboratory Tests Test 08/06/16 17:29 08/06/16 21:54 08/07/16 05:20 08/07/16 10:30 Glucose (Fingerstick) 208mg/dL (70-99) 171mg/dL (70-99) White Blood Count 6.2x10^3/uL (4.0-11.0) Red Blood Count 2.56x10^6/uL (3.50-5.40) Hemoglobin 6.9g/dL (12.0-15.5) Hematocrit 21.0% (36.0-47.0) Mean Corpuscular Volume 82fL (79-100) Mean Corpuscular Hemoglobin 27pg (25-35) Mean Corpuscular Hemoglobin Concent 33g/dL (31-37) Red Cell Distribution Width 16.1% (11.5-14.5) Platelet Count 175x10^3/uL (140-400) Neutrophils (%) (Auto) 72% (31-73) Lymphocytes (%) (Auto) 14% (24-48) Monocytes (%) (Auto) 9% (0-9) Eosinophils (%) (Auto) 4% (0-3) Basophils (%) (Auto) 1% (0-3) Neutrophils # (Auto) 4.5x10^3uL (1.8-7.7) Lymphocytes # (Auto) 0.9x10^3/uL (1.0-4.8) Monocytes # (Auto) 0.5x10^3/uL (0.0-1.1) Eosinophils # (Auto) 0.3x10^3/uL (0.0-0.7) Basophils # (Auto) 0.0x10^3/uL (0.0-0.2) Sodium Level 143mmol/L (136-145) Potassium Level 3.8mmol/L (3.5-5.1) Chloride Level 111mmol/L (98-107) Carbon Dioxide Level 24mmol/L (21-32) Anion Gap 8 (6-14) Blood Urea Nitrogen 25mg/dL (7-20) Creatinine 1.2mg/dL (0.6-1.0) Estimated GFR (Cockcroft-Gault) 42.8 Glucose Level 109mg/dL (70-99) Calcium Level 7.9mg/dL (8.5-10.1) Phosphorus Level 3.8mg/dL (2.6-4.7) Magnesium Level 1.9mg/dL (1.8-2.4) Albumin 1.8g/dL (3.4-5.0) Heparin Anti-Xa Act, Unfractionated 0.40IU/mL (0.30-0.70) Test 08/07/16 12:00 08/07/16 16:46 08/07/16 18:15 08/08/16 05:00 Glucose (Fingerstick) 150mg/dL (70-99) 142mg/dL (70-99) Reticulocyte Count (auto) 1.0% (0.5-2.5) Potassium Level 3.3mmol/L (3.5-5.1) 4.1mmol/L (3.5-5.1) Iron Level 69ug/dL (50-170) Total Iron Binding Capacity 177ug/dL (250-450) Iron Saturation 39% (15-34) Ferritin 98ng/mL (8-252) Vitamin B12 Level 1411pg/mL (211-946) White Blood Count 6.6x10^3/uL (4.0-11.0) Red Blood Count 3.70x10^6/uL (3.50-5.40) Hemoglobin 10.3g/dL (12.0-15.5) Hematocrit 30.4% (36.0-47.0) Mean Corpuscular Volume 82fL (79-100) Mean Corpuscular Hemoglobin 28pg (25-35) Mean Corpuscular Hemoglobin Concent 34g/dL (31-37) Red Cell Distribution Width 16.2% (11.5-14.5) Platelet Count 185x10^3/uL (140-400) Neutrophils (%) (Auto) 66% (31-73) Lymphocytes (%) (Auto) 19% (24-48) Monocytes (%) (Auto) 10% (0-9) Eosinophils (%) (Auto) 4% (0-3) Basophils (%) (Auto) 1% (0-3) Neutrophils # (Auto) 4.4x10^3uL (1.8-7.7) Lymphocytes # (Auto) 1.3x10^3/uL (1.0-4.8) Monocytes # (Auto) 0.7x10^3/uL (0.0-1.1) Eosinophils # (Auto) 0.3x10^3/uL (0.0-0.7) Basophils # (Auto) 0.0x10^3/uL (0.0-0.2) Heparin Anti-Xa Act, Unfractionated 0.47IU/mL (0.30-0.70) Sodium Level 139mmol/L (136-145) Chloride Level 108mmol/L (98-107) Carbon Dioxide Level 25mmol/L (21-32) Anion Gap 6 (6-14) Blood Urea Nitrogen 18mg/dL (7-20) Creatinine 0.9mg/dL (0.6-1.0) Estimated GFR (Cockcroft-Gault) 59.7 Glucose Level 147mg/dL (70-99) Calcium Level 8.3mg/dL (8.5-10.1) Phosphorus Level 2.9mg/dL (2.6-4.7) Magnesium Level 1.8mg/dL (1.8-2.4) Albumin 2.0g/dL (3.4-5.0) Test 08/08/16 11:22 Glucose (Fingerstick) 94mg/dL (70-99) Laboratory Tests Test 08/07/16 18:15 08/08/16 05:00 08/08/16 11:22 Reticulocyte Count (auto) 1.0% (0.5-2.5) Potassium Level 3.3mmol/L (3.5-5.1) 4.1mmol/L (3.5-5.1) Iron Level 69ug/dL (50-170) Total Iron Binding Capacity 177ug/dL (250-450) Iron Saturation 39% (15-34) Ferritin 98ng/mL (8-252) Vitamin B12 Level 1411pg/mL (211-946) White Blood Count 6.6x10^3/uL (4.0-11.0) Red Blood Count 3.70x10^6/uL (3.50-5.40) Hemoglobin 10.3g/dL (12.0-15.5) Hematocrit 30.4% (36.0-47.0) Mean Corpuscular Volume 82fL (79-100) Mean Corpuscular Hemoglobin 28pg (25-35) Mean Corpuscular Hemoglobin Concent 34g/dL (31-37) Red Cell Distribution Width 16.2% (11.5-14.5) Platelet Count 185x10^3/uL (140-400) Neutrophils (%) (Auto) 66% (31-73) Lymphocytes (%) (Auto) 19% (24-48) Monocytes (%) (Auto) 10% (0-9) Eosinophils (%) (Auto) 4% (0-3) Basophils (%) (Auto) 1% (0-3) Neutrophils # (Auto) 4.4x10^3uL (1.8-7.7) Lymphocytes # (Auto) 1.3x10^3/uL (1.0-4.8) Monocytes # (Auto) 0.7x10^3/uL (0.0-1.1) Eosinophils # (Auto) 0.3x10^3/uL (0.0-0.7) Basophils # (Auto) 0.0x10^3/uL (0.0-0.2) Heparin Anti-Xa Act, Unfractionated 0.47IU/mL (0.30-0.70) Sodium Level 139mmol/L (136-145) Chloride Level 108mmol/L (98-107) Carbon Dioxide Level 25mmol/L (21-32) Anion Gap 6 (6-14) Blood Urea Nitrogen 18mg/dL (7-20) Creatinine 0.9mg/dL (0.6-1.0) Estimated GFR (Cockcroft-Gault) 59.7 Glucose Level 147mg/dL (70-99) Calcium Level 8.3mg/dL (8.5-10.1) Phosphorus Level 2.9mg/dL (2.6-4.7) Magnesium Level 1.8mg/dL (1.8-2.4) Albumin 2.0g/dL (3.4-5.0) Glucose (Fingerstick) 94mg/dL (70-99) Images Images 1. Hemodynamics: Left ventricular end-diastolic pressure of 29 mmHg. No pullback gradient across the aortic valve. 2. Left ventriculography: Mild global left ventricular systolic dysfunction with ejection fraction estimated at 40-45%. No significant mitral regurgitation seen. 3. Coronary angiography: a. The left main coronary artery arose from the left sinus of Valsalva, gave rise to the left anterior descending and left circumflex arteries and showed 60- 70% proximal segment stenosis. b. The left anterior descending artery showed 50% stenosis the proximal segment , 60% stenosis in the midsegment and 70% stenosis in the mid to distal segment. The first diagonal branch which is a small caliber vessel showed 70% proximal segment stenosis. The second diagonal branch which is a medium caliber vessel showed 80% stenosis in the proximal segment. c. The left circumflex artery showed critical 90-95% stenosis involving the proximal segment. d. The right coronary artery was a large and dominant vessel arising from the right sinus of Valsalva that showed 90% stenosis in the midsegment. The posterolateral branch showed 90% stenosis in the proximal to midsegment. The posterior descending artery showed severe diffuse disease. Conclusion 1. Severe three-vessel coronary artery disease 2. Mild global left ventricular systolic dysfunction with ejection fraction estimated at 40-45% Assessment/Plan Assessment/Plan 86-year-old female, with a history of diabetes, severe peripheral vascular disease, left fifth toe amputation a month ago on long-term intravenous antibiotics via PICC line for osteomyelitis, hypertension, who was admitted on August 04 with severe sepsis. Sources of her sepsis include bacteremia from the PICC line, urosepsis, C. difficile colitis. The left fifth toe amputation wound is open and is currently receiving wet-to-dry dressings. During her septic episode the patient developed a non-STEMI and a left heart catheterization today demonstrated 60% left main disease, multiple stenosis in a relatively small LAD, a proximal second diagonal stenosis which was of moderate size, a tight stenosis at a very small left circumflex, and a dominant RCA with a tight stenosis in its mid and distal segment which is followed by a small PDA which is diffusely diseased and a RPL which has a 80% proximal stenosis. Her ejection fraction is 40-45% and there is no valvular disease on the transthoracic echo. The open wound of the left fifth toe is a relative contraindication for open heart surgery, as it significantly increases the risk for sternal wound infection and mediastinitis. In addition, the patient does not have targets for CABG. The LAD is small, the left circumflex is a puny system and the RCA has a moderate size but is diffusely diseased especially the RPDA which is extremely small. In addition the patient is frail and overall a poor surgical candidate. Would recommend PCI to the left main and the RCA. MARIN CANTU MD Aug 08, 2016 16:51
[2016-08-08] MEDS: INSULIN DETEMIR 300 UNITS/3 ML INSULN.PEN. SQ SCH (18:05)
[2016-08-08] MEDS: ATORVASTATIN CALCIUM 10 MG TABLET. PO SCH (21:22)
[2016-08-08] MEDS: AMITRIPTYLINE HCL 25 MG TABLET PO SCH (21:23)
[2016-08-09] VITALS (7 sets, daily range): BP systolic 124–175; BP diastolic 50–78
[2016-08-09] MEDS: LEVOTHYROXINE 50 MCG TABLET PO SCH (06:50)
[2016-08-09 07:19] LABS: BASO % 1 % (0-3); EOS % 2 % (0-3); HEMATOCRIT 30.5 % (36.0-47.0); HEMOGLOBIN 10.1 g/dL (12.0-15.5); LYMPH # 1.1 x10^3/uL (1.0-4.8); LYMPH % 11 % (24-48); MEAN CORPUSCULAR HEMOGLOBIN 28 pg (25-35); MEAN CORPUSCULAR HGB CONC 33 g/dL (31-37); MEAN CORPUSCULAR VOLUME 83 fL (79-100); MONO % 7 % (0-9); NEUT % 80 % (31-73); PLATELET COUNT 201 x10^3/uL (140-400); RED BLOOD COUNT 3.67 x10^6/uL (3.50-5.40); RED CELL DISTRIBUTION WIDTH 16.6 % (11.5-14.5); WHITE BLOOD COUNT 9.8 x10^3/uL (4.0-11.0)
[2016-08-09 07:36] LABS: CALCIUM 8.4 mg/dL (8.5-10.1); CREATININE 0.8 mg/dL (0.6-1.0); GFR 68.3; MAGNESIUM 1.7 mg/dL (1.8-2.4); PHOSPHORUS 3.4 mg/dL (2.6-4.7); POTASSIUM 3.8 mmol/L (3.5-5.1)
--- NOTE | 2016-08-09 07:42 | PDOC ---
Infectious Disease Note Subjective Subjective Low grade temp this am Better stools - better ROS ROS GEN: Denies fevers, chills, sweats HEENT: Denies blurred vision, sore throat CV: Denies chest pain RESP: Denies shortness of air, cough GI: Denies n/v/d NEURO: Denies confusion, dizziness MSK: Denies weakness, joint pain/swelling Vital Sign Vital Signs Vital Signs Date Time Temp Pulse Resp B/P Pulse Ox O2 Delivery O2 Flow Rate FiO2 08/09/16 04:08 100.4 88 22 135/59 94 Nasal Cannula 2.0 100.4 Physical Exam PHYSICAL EXAM GENERAL: NAD, Alert HEENT: PERRL, OC/OP -clear NECK: Supple, no JVD, no LN LUNGS: Clear HEART: S1S2, no gallop, no murmur ABD: Soft, NT, no organomegaly, no rebound Simpson EXT: No edema, no cyanosis. Foot wound is clean. Off vac UI ENGINEER: Alert, oriented x 3, no focal neurologic deficit SKIN: No rash IV: ok Labs Lab Laboratory Tests Test 08/08/16 11:22 08/08/16 17:59 08/08/16 21:29 08/09/16 06:55 Glucose (Fingerstick) 94mg/dL (70-99) 237mg/dL (70-99) 245mg/dL (70-99) White Blood Count 9.8x10^3/uL (4.0-11.0) Red Blood Count 3.67x10^6/uL (3.50-5.40) Hemoglobin 10.1g/dL (12.0-15.5) Hematocrit 30.5% (36.0-47.0) Mean Corpuscular Volume 83fL (79-100) Mean Corpuscular Hemoglobin 28pg (25-35) Mean Corpuscular Hemoglobin Concent 33g/dL (31-37) Red Cell Distribution Width 16.6% (11.5-14.5) Platelet Count 201x10^3/uL (140-400) Neutrophils (%) (Auto) 80% (31-73) Lymphocytes (%) (Auto) 11% (24-48) Monocytes (%) (Auto) 7% (0-9) Eosinophils (%) (Auto) 2% (0-3) Basophils (%) (Auto) 1% (0-3) Neutrophils # (Auto) 7.8x10^3uL (1.8-7.7) Lymphocytes # (Auto) 1.1x10^3/uL (1.0-4.8) Monocytes # (Auto) 0.7x10^3/uL (0.0-1.1) Eosinophils # (Auto) 0.2x10^3/uL (0.0-0.7) Basophils # (Auto) 0.0x10^3/uL (0.0-0.2) Objective Assessment Fever - ? Room was hot per nursing but will monitor. Clinically looks ok. ? PRBCs Leukocytosis, improved Left foot wound /osteo. yeast on GS on Aug 04. CX: yeast. Wound is clean -h/o PSA -s/p left fifth toe open amputation with wound vac, 07/25 C diff. 2/2. DM w/ peripheral neuropathy PVD. s/p failed LLE bypass graft IGOR Anemia s/p PRBCs 2/5 NSTEMI CHF on x-ray Yeast in urine on Fluconazole Plan Plan of Care Cont po vanc Repeat Urine. If spikes will need abx CBC in am Probiotics Cont Fluconazole for a few doses f/u cultures Supportive care D/w family CHRISTINE CARL MD Aug 09, 2016 07:42
[2016-08-09] MEDS: INSULIN ASPART 300 UNITS/3 ML INSULN.PEN SQ SCH ×6 (08:00→18:00)
[2016-08-09] MEDS: CLOPIDOGREL BISULFATE 75 MG TABLET PO SCH (08:14)
[2016-08-09] MEDS: PREGABALIN 50 MG CAPSULE PO SCH ×2 (08:14→21:17)
[2016-08-09] MEDS: LACTOBACILLUS ACIDOPH & BULGAR 1 TABLET. PO SCH ×3 (08:15→17:53)
[2016-08-09] MEDS: LINAGLIPTIN 5 MG TABLET PO SCH (08:15)
[2016-08-09] MEDS: LISINOPRIL 2.5 MG TABLET PO SCH (08:15)
[2016-08-09] MEDS: VANCOMYCIN 125 MG/2.5 ML ORAL SOLUTION. PO SCH ×4 (08:15→21:27)
[2016-08-09] MEDS: FLUCONAZOLE 100 MG TABLET. PO SCH (08:15)
[2016-08-09] MEDS: ASPIRIN ENTERIC COATED 81 MG TABLET.DR. PO SCH (08:15)
[2016-08-09] MEDS: METOPROLOL TART IMMED RELEASE 25 MG TABLET PO SCH ×2 (08:15→21:17)
[2016-08-09] MEDS: PANTOPRAZOLE 40 MG TABLET. PO SCH (08:15)
[2016-08-09] MEDS: ACETYLCYSTEINE 20% ORAL SOLN 600 MG/3 ML SYRINGE. PO SCH (08:16)
[2016-08-09] MEDS: silver sulfADIAZINE 1% CREAM 25GM TUBE. TP SCH (08:16)
[2016-08-09] MEDS: ANASTROZOLE 1 MG TABLET PO SCH (08:19)
[2016-08-09 09:47] LABS: % BASOS 1 % (0-3); % EOS 1 % (0-5); PLT ESTIMATE ADEQUATE (ADEQUATE)
[2016-08-09 09:48] LABS: ANISOCYTOSIS SLIGHT
[2016-08-09 10:02] LABS: BILIRUBIN,URINE NEGATIVE (NEG); GLUCOSE,URINE NEGATIVE (NEG); NITRITE,URINE NEGATIVE (NEG); PH,URINE 5.5; UROBILINOGEN,URINE 0.2 mg/dL (0.2 mg/dL)
--- NOTE | 2016-08-09 10:15 | PDOC ---
PROGRESS NOTES Subjective Subjective want to move to med floor Objective Objective Vital Signs Date Time Temp Pulse Resp B/P Pulse Ox O2 Delivery O2 Flow Rate FiO2 08/09/16 08:20 99.1 76 20 149/77 97 Nasal Cannula 2.0 99.1 Intake and Output 08/09/16 07:00 Intake Total 700 ml Output Total 1400 ml Balance -700 ml Intake Oral 340 ml Other 360 ml Output Urine Total 1400 ml # Bowel Movements 1 Physical Exam Abdomen: Soft Heart: Regular rate, Normal S1, Normal S2, No murmurs Extremities: No edema General: Alert, Oriented X3 HEENT: Atraumatic Lungs: Clear to auscultation MUSCULOSKELETAL: No deformity Neuro: Normal speech, Strength at 5/5 X4 ext, Sensation intact, Cranial nerves 3-12 NL Psych/Mental Status: Mental status NL Skin: No breakdown Diagnosis Problem List Problems Medical Problems: (1) NSTEMI (non-ST elevated myocardial infarction) Status: Acute (2) Sepsis Status: Acute (3) Urinary tract infection Status: Acute Assessment Assessment Problems Medical Problems: (1) NSTEMI (non-ST elevated myocardial infarction) Status: Acute (2) Sepsis Status: Acute (3) Urinary tract infection Status: Acute FINAL IMPRESSION: cad-3 vessel on cardiac cath anemia chf Acute MO -non Stemi. hypotension. C diff colitis 1. Febrile illness, temperature of 103. 2. Sepsis, could be line infection. The patient has a PICC line in the right arm, could be Clostridium difficile colitis. 3. Diabetes, insulin dependent. 4. Hypothyroidism. 5. Peripheral vascular disease, bypass to both lower extremities. 6. Recent amputation of the left fifth toe for osteomyelitis, has open wound to heal. 7. Breast carcinoma, left mastectomy. 8. Anemia of chronic disease. 9. Protein-calorie malnutrition, mild to moderate. PLAN: cardiac cath today showed 3 vessel disease. high risk for CABG, medical treatment. yeast in wounds and urine on diflucan transfuse today for anemia hb 10 today . po vancomycin+add questran powder 1 po bid troponin elevated to 9.0 on heparin drip. cardiac cath once stable Off Levophed for hypotension. Oral avnco for c diff uti-yeast pot 3.8 replaced cr 1.3 cxr chf. Problems: Plan Plan of Care Problems Medical Problems: (1) NSTEMI (non-ST elevated myocardial infarction) Status: Acute (2) Sepsis Status: Acute (3) Urinary tract infection Status: Acute Comment Review of Relevant I have reviewed the following items kathleen (where applicable) has been applied. Labs Laboratory Tests Test 08/08/16 11:22 08/08/16 17:59 08/08/16 21:29 08/09/16 06:55 Glucose (Fingerstick) 94mg/dL (70-99) 237mg/dL (70-99) 245mg/dL (70-99) White Blood Count 9.8x10^3/uL (4.0-11.0) Red Blood Count 3.67x10^6/uL (3.50-5.40) Hemoglobin 10.1g/dL (12.0-15.5) Hematocrit 30.5% (36.0-47.0) Mean Corpuscular Volume 83fL (79-100) Mean Corpuscular Hemoglobin 28pg (25-35) Mean Corpuscular Hemoglobin Concent 33g/dL (31-37) Red Cell Distribution Width 16.6% (11.5-14.5) Platelet Count 201x10^3/uL (140-400) Neutrophils (%) (Auto) 80% (31-73) Lymphocytes (%) (Auto) 11% (24-48) Monocytes (%) (Auto) 7% (0-9) Eosinophils (%) (Auto) 2% (0-3) Basophils (%) (Auto) 1% (0-3) Neutrophils # (Auto) 7.8x10^3uL (1.8-7.7) Lymphocytes # (Auto) 1.1x10^3/uL (1.0-4.8) Monocytes # (Auto) 0.7x10^3/uL (0.0-1.1) Eosinophils # (Auto) 0.2x10^3/uL (0.0-0.7) Basophils # (Auto) 0.0x10^3/uL (0.0-0.2) Segmented Neutrophils % 56% (35-66) Band Neutrophils % 16% (0-9) Lymphocytes % 22% (24-48) Atypical Lymphocytes % (Manual) 1% (0-0) Monocytes % 3% (0-10) Eosinophils % 1% (0-5) Basophils % 1% (0-3) Platelet Estimate Adequate (ADEQUATE) Anisocytosis Slight Heparin Anti-Xa Act, Unfractionated < 0.10IU/mL (0.30-0.70) Sodium Level 141mmol/L (136-145) Potassium Level 3.8mmol/L (3.5-5.1) Chloride Level 108mmol/L (98-107) Carbon Dioxide Level 26mmol/L (21-32) Anion Gap 7 (6-14) Blood Urea Nitrogen 13mg/dL (7-20) Creatinine 0.8mg/dL (0.6-1.0) Estimated GFR (Cockcroft-Gault) 68.3 Glucose Level 104mg/dL (70-99) Calcium Level 8.4mg/dL (8.5-10.1) Phosphorus Level 3.4mg/dL (2.6-4.7) Magnesium Level 1.7mg/dL (1.8-2.4) Albumin 2.0g/dL (3.4-5.0) Test 08/09/16 08:12 Glucose (Fingerstick) 71mg/dL (70-99) Microbiology 08/04/16 Blood Culture - Preliminary, Resulted NO GROWTH AFTER 4 DAYS 08/04/16 Urine Culture - Final, Complete 08/04/16 Urine Culture Result 1 (AMADOU) - Final, Complete 08/04/16 Gram Stain - Final, Complete Medications Current Medications Fentanyl Citrate (Fentanyl 2ml Vial) 75 mcg 1X ONCE IV Last administered on 13:15; Start 08/08/16 at 13:15; Stop 08/08/16 at 13:16; Status DC Fentanyl Citrate (Fentanyl 2ml Vial) 100 mcg STK-MED ONCE .ROUTE ; Start at 11:52; Stop 08/08/16 at 11:53; Status DC Heparin Sodium (Porcine) 2,500 unit 1X ONCE IART Last administered on 13:15; Start 08/08/16 at 13:15; Stop 08/08/16 at 13:16; Status DC Heparin Sodium (Porcine) 10,000 unit STK-MED ONCE .ROUTE ; Start 08/08/16 at 11: 52; Stop 08/08/16 at 11:53; Status DC Heparin Sodium/ Sodium Chloride 500 ml @ As Directed STK-MED ONCE .ROUTE ; Start 08/08/16 at 11:47; Stop 08/08/16 at 11:48; Status DC Heparin Sodium/ Sodium Chloride 1,000 unit 1X ONCE IART Last administered on 13:15; Start 08/08/16 at 13:15; Stop 08/08/16 at 13:16; Status DC Hydralazine HCl (Apresoline) 10 mg PRN Q4HRS PRN IVP ELEVATED BP, SEE COMMENTS Last administered on 08/08/16 22:18; Start 08/08/16 at 15:00 Iohexol (Omnipaque 300 Mg/ml) 100 ml STK-MED ONCE .ROUTE ; Start 08/08/16 at 11: 47; Stop 08/08/16 at 11:48; Status DC Iohexol (Omnipaque 300 Mg/ml) 140 ml 1X ONCE IART Last administered on 13:15; Start 08/08/16 at 13:15; Stop 08/08/16 at 13:16; Status DC Lidocaine HCl 1 ml 1X ONCE IJ Last administered on 08/08/16 12:43; Start at 13:15; Stop 08/08/16 at 13:16; Status DC Lidocaine HCl 20 ml 20 ml STK-MED ONCE .ROUTE ; Start 08/08/16 at 11:47; Stop 08/08/16 at 11:48; Status DC Midazolam HCl (Versed) 1.5 mg 1X ONCE IV Last administered on 08/08/16 13:15; Start 08/08/16 at 13:15; Stop 08/08/16 at 13:16; Status DC Midazolam HCl (Versed) 2 mg STK-MED ONCE .ROUTE ; Start 08/08/16 at 11:52; Stop 08/08/16 at 11:53; Status DC Nitroglycerin (Nitroglycerin) 200 mcg STK-MED ONCE .ROUTE ; Start 08/08/16 at 11: 52; Stop 08/08/16 at 11:53; Status DC Nitroglycerin (Nitroglycerin) 400 mcg 1X ONCE IART Last administered on 13:15; Start 08/08/16 at 13:15; Stop 08/08/16 at 13:16; Status DC Verapamil HCl (Verapamil) 5 mg 1X ONCE IART Last administered on 08/08/16t 13: 15; Start 08/08/16 at 13:15; Stop 08/08/16 at 13:16; Status DC Verapamil HCl (Verapamil) 5 mg STK-MED ONCE .ROUTE ; Start 08/08/16 at 11:52; Stop 08/08/16 at 11:53; Status DC Vitals/I & O Vital Sign - Last 24 Hours 08/08/16 08/08/16 08/08/16 08/08/16 10:21 13:02 13:15 13:15 Pulse 82 74 70 Resp 22 12 12 B/P 167/103 Pulse Ox 95 92 92 O2 Delivery Nasal Cannula Room Air Nasal Cannula O2 Flow Rate 2.0 4.0 08/08/16 08/08/16 08/08/16 08/08/16 13:30 13:42 13:42 13:45 Pulse 82 81 82 84 Resp 18 B/P 154/65 154/65 154/65 182/84 Pulse Ox 93 95 O2 Delivery Nasal Cannula Nasal Cannula O2 Flow Rate 2.0 2.0 08/08/16 08/08/16 08/08/16 08/08/16 14:00 14:15 14:30 14:57 Pulse 84 82 82 84 Resp 20 20 B/P 175/81 173/79 182/88 188/86 Pulse Ox 97 97 96 O2 Delivery Nasal Cannula Nasal Cannula Nasal Cannula O2 Flow Rate 2.0 2.0 2.0 08/08/16 08/08/16 08/08/16 08/08/16 15:09 20:00 20:15 21:24 Temp 99.3 99.3 Pulse 86 82 81 Resp 18 B/P 169/83 164/68 155/78 Pulse Ox 98 95 O2 Delivery Nasal Cannula Nasal Cannula Nasal Cannula O2 Flow Rate 2.0 2.0 2.0 08/08/16 08/09/16 08/09/16 08/09/16 22:18 00:00 04:08 07:43 Temp 99.3 100.4 99.3 100.4 Pulse 79 76 88 Resp B/P 161/71 124/50 135/59 Pulse Ox 93 94 O2 Delivery Nasal Cannula Nasal Cannula Nasal Cannula O2 Flow Rate 2.0 2.0 2.0 08/09/16 08/09/16 08/09/16 08:15 08:15 08:20 Temp 99.1 99.1 Pulse 77 77 76 Resp 20 B/P 149/77 149/77 149/77 Pulse Ox 97 O2 Delivery Nasal Cannula O2 Flow Rate 2.0 Intake and Output 08/08/16 08/08/16 08/09/16 15:00 23:00 07:00 Intake Total 360 ml 340 ml Output Total 1400 ml Balance -1040 ml 340 ml JAMES CORCORAN MD Aug 09, 2016 10:14
[2016-08-09 10:18] LABS: BACTERIA,URINE FEW /HPF (0-FEW); PROTEIN,URINE 20 mg/dL (NEG-TRACE); RBC,URINE OCC /HPF (0-2); SQUAMOUS EPITHELIAL CELL,UR OCC /LPF; WBC,URINE 20-40 /HPF (0-4)
[2016-08-09 10:19] LABS: YEAST,URINE PRESENT /HPF
--- NOTE | 2016-08-09 10:48 | PDOC ---
CARDIO Progress Notes Date and Time Date of Service 08/09/2016 Time of Evaluation 1045 Subjective Subjective: No Chest Pain, No shortness of breath, No Palpitations, No Dizziness Vitals Vitals Vital Signs Date Time Temp Pulse Resp B/P Pulse Ox O2 Delivery O2 Flow Rate FiO2 08/09/16 08:20 99.1 76 20 149/77 97 Nasal Cannula 2.0 99.1 Weight Weight [ ] Stability Assessment Stability Assess.: other (agreeable with transfer to [facility] - with tele) Input and Output Intake and Output Intake and Output 08/09/16 07:00 Intake Total 700 ml Output Total 1400 ml Balance -700 ml Intake Oral 340 ml Other 360 ml Output Urine Total 1400 ml # Bowel Movements 1 Laboratory Labs Laboratory Tests Test 08/08/16 11:22 08/08/16 17:59 08/08/16 21:29 08/09/16 06:55 Glucose (Fingerstick) 94mg/dL (70-99) 237mg/dL (70-99) 245mg/dL (70-99) White Blood Count 9.8x10^3/uL (4.0-11.0) Red Blood Count 3.67x10^6/uL (3.50-5.40) Hemoglobin 10.1g/dL (12.0-15.5) Hematocrit 30.5% (36.0-47.0) Mean Corpuscular Volume 83fL (79-100) Mean Corpuscular Hemoglobin 28pg (25-35) Mean Corpuscular Hemoglobin Concent 33g/dL (31-37) Red Cell Distribution Width 16.6% (11.5-14.5) Platelet Count 201x10^3/uL (140-400) Neutrophils (%) (Auto) 80% (31-73) Lymphocytes (%) (Auto) 11% (24-48) Monocytes (%) (Auto) 7% (0-9) Eosinophils (%) (Auto) 2% (0-3) Basophils (%) (Auto) 1% (0-3) Neutrophils # (Auto) 7.8x10^3uL (1.8-7.7) Lymphocytes # (Auto) 1.1x10^3/uL (1.0-4.8) Monocytes # (Auto) 0.7x10^3/uL (0.0-1.1) Eosinophils # (Auto) 0.2x10^3/uL (0.0-0.7) Basophils # (Auto) 0.0x10^3/uL (0.0-0.2) Segmented Neutrophils % 56% (35-66) Band Neutrophils % 16% (0-9) Lymphocytes % 22% (24-48) Atypical Lymphocytes % (Manual) 1% (0-0) Monocytes % 3% (0-10) Eosinophils % 1% (0-5) Basophils % 1% (0-3) Platelet Estimate Adequate (ADEQUATE) Anisocytosis Slight Heparin Anti-Xa Act, Unfractionated < 0.10IU/mL (0.30-0.70) Sodium Level 141mmol/L (136-145) Potassium Level 3.8mmol/L (3.5-5.1) Chloride Level 108mmol/L (98-107) Carbon Dioxide Level 26mmol/L (21-32) Anion Gap 7 (6-14) Blood Urea Nitrogen 13mg/dL (7-20) Creatinine 0.8mg/dL (0.6-1.0) Estimated GFR (Cockcroft-Gault) 68.3 Glucose Level 104mg/dL (70-99) Calcium Level 8.4mg/dL (8.5-10.1) Phosphorus Level 3.4mg/dL (2.6-4.7) Magnesium Level 1.7mg/dL (1.8-2.4) Albumin 2.0g/dL (3.4-5.0) Test 08/09/16 08:12 08/09/16 09:45 Glucose (Fingerstick) 71mg/dL (70-99) Urine Collection Type Unknown Urine Color Yellow Urine Clarity Clear Urine pH 5.5 Urine Specific [place] >=1.030 Urine Protein 20mg/dL (NEG-TRACE) Urine Glucose (UA) Negativemg/dL (NEG) Urine Ketones (Stick) Negativemg/dL (NEG) Urine Blood Trace (NEG) Urine Nitrite Negative (NEG) Urine Bilirubin Negative (NEG) Urine Urobilinogen Dipstick 0.2mg/dL (0.2 mg/dL) Urine Leukocyte Esterase Moderate (NEG) Urine RBC Occ/HPF (0-2) Urine WBC 20-40/HPF (0-4) Urine Squamous Epithelial Cells Occ/LPF Urine Bacteria Few/HPF (0-FEW) Urine Mucus Slight/LPF Urine Yeast Present/HPF Microbiology Micro Microbiology 08/04/16 Blood Culture - Final, Complete NO GROWTH AFTER 5 DAYS 08/04/16 Urine Culture - Final, Complete 08/04/16 Urine Culture Result 1 (AMADOU) - Final, Complete 08/04/16 Gram Stain - Final, Complete Physical Exam HEENT: Neck Supple W Full Motion Chest: Symmetric LUNGS: Clear to Auscultation (clear anteriorly) Heart: S1S2, RRR (SR no significant ectopies overnight) Abdomen: Soft N/T Extremities: Other (trace LE edema) Neurology: alert, oriented, follow commands Assessment Assessment 1. Sepsis/hypotension per ID open foot wound precludes pt undergoing cardiac surgery 2. Acute systolic CHF LVEF mildly depressed @ 40-45% reasonably compensated with medical management: BB; ACEI 3. NSTEMI cath with severe 3 vessel disease CTS declined surgery for this patient will need Impella assisted PCI - ? scheduling; Cr normal after contrast yesterday continue DAPT 4. Hx of PAD with past bypass: on plavix at home per vascular surgery 5. HTN reasonably controlled with meds 6. Hyperlipidemia LDLs = 80; 08/04/16 continue statin therapy CEDRICK CAN APRN Aug 09, 2016 10:48
[2016-08-09] MEDS: INSULIN DETEMIR 300 UNITS/3 ML INSULN.PEN. SQ SCH (18:00)
[2016-08-09] MEDS: ATORVASTATIN CALCIUM 10 MG TABLET. PO SCH (21:18)
[2016-08-09] MEDS: AMITRIPTYLINE HCL 25 MG TABLET PO SCH (21:18)
[2016-08-10 03:02] VITALS: BP 144/60
[2016-08-10] MEDS: LEVOTHYROXINE 50 MCG TABLET PO SCH (05:55)
[2016-08-10 06:07] LABS: BASO # 0.1 x10^3/uL (0.0-0.2); BASO % 1 % (0-3); EOS % 3 % (0-3); HEMOGLOBIN 9.9 g/dL (12.0-15.5); LYMPH # 1.1 x10^3/uL (1.0-4.8); LYMPH % 13 % (24-48); MEAN CORPUSCULAR HEMOGLOBIN 28 pg (25-35); MEAN CORPUSCULAR HGB CONC 33 g/dL (31-37); MEAN CORPUSCULAR VOLUME 84 fL (79-100); MONO % 8 % (0-9); NEUT % 74 % (31-73); PLATELET COUNT 227 x10^3/uL (140-400); RED BLOOD COUNT 3.57 x10^6/uL (3.50-5.40); RED CELL DISTRIBUTION WIDTH 16.7 % (11.5-14.5); WHITE BLOOD COUNT 8.3 x10^3/uL (4.0-11.0)
[2016-08-10 06:22] LABS: ALBUMIN 2.1 g/dL (3.4-5.0); CALCIUM 8.4 mg/dL (8.5-10.1); CREATININE 0.9 mg/dL (0.6-1.0); GFR 59.7; PHOSPHORUS 4.4 mg/dL (2.6-4.7); POTASSIUM 4.1 mmol/L (3.5-5.1)
[2016-08-10 07:00] VITALS: BP 159/57
[2016-08-10] MEDS: INSULIN ASPART 300 UNITS/3 ML INSULN.PEN SQ SCH ×6 (08:00→18:44)
--- NOTE | 2016-08-10 08:35 | PDOC ---
Infectious Disease Note Subjective Subjective Better stools - better Eating more ROS ROS GEN: Denies fevers, chills, sweats HEENT: Denies blurred vision, sore throat CV: Denies chest pain RESP: Denies shortness of air, cough GI: Denies n/v/d NEURO: Denies confusion, dizziness MSK: Denies weakness, joint pain/swelling Vital Sign Vital Signs Vital Signs Date Time Temp Pulse Resp B/P Pulse Ox O2 Delivery O2 Flow Rate FiO2 08/10/16 07:23 Nasal Cannula 2.0 08/10/16 07:00 98.9 81 18 159/57 95 98.9 Physical Exam PHYSICAL EXAM GENERAL: NAD, Alert - looks well HEENT: PERRL, OC/OP -clear NECK: Supple, no JVD, no LN LUNGS: Clear HEART: S1S2, no gallop, no murmur ABD: Soft, NT, no organomegaly, no rebound Simpson EXT: No edema, no cyanosis. Foot wound is clean. 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 THREAD TOOL: Alert, oriented x 3, no focal neurologic deficit SKIN: No rash IV: ok Labs Lab Laboratory Tests Test 08/09/16 09:45 08/09/16 11:47 08/09/16 16:47 08/09/16 20:48 Urine Collection Type Unknown Urine Color Yellow Urine Clarity Clear Urine pH 5.5 Urine Specific [place] >=1.030 Urine Protein 20mg/dL (NEG-TRACE) Urine Glucose (UA) Negativemg/dL (NEG) Urine Ketones (Stick) Negativemg/dL (NEG) Urine Blood Trace (NEG) Urine Nitrite Negative (NEG) Urine Bilirubin Negative (NEG) Urine Urobilinogen Dipstick 0.2mg/dL (0.2 mg/dL) Urine Leukocyte Esterase Moderate (NEG) Urine RBC Occ/HPF (0-2) Urine WBC 20-40/HPF (0-4) Urine Squamous Epithelial Cells Occ/LPF Urine Bacteria Few/HPF (0-FEW) Urine Mucus Slight/LPF Urine Yeast Present/HPF Glucose (Fingerstick) 130mg/dL (70-99) 146mg/dL (70-99) 208mg/dL (70-99) Test 08/10/16 05:45 White Blood Count 8.3x10^3/uL (4.0-11.0) Red Blood Count 3.57x10^6/uL (3.50-5.40) Hemoglobin 9.9g/dL (12.0-15.5) Hematocrit 30.0% (36.0-47.0) Mean Corpuscular Volume 84fL (79-100) Mean Corpuscular Hemoglobin 28pg (25-35) Mean Corpuscular Hemoglobin Concent 33g/dL (31-37) Red Cell Distribution Width 16.7% (11.5-14.5) Platelet Count 227x10^3/uL (140-400) Neutrophils (%) (Auto) 74% (31-73) Lymphocytes (%) (Auto) 13% (24-48) Monocytes (%) (Auto) 8% (0-9) Eosinophils (%) (Auto) 3% (0-3) Basophils (%) (Auto) 1% (0-3) Neutrophils # (Auto) 6.2x10^3uL (1.8-7.7) Lymphocytes # (Auto) 1.1x10^3/uL (1.0-4.8) Monocytes # (Auto) 0.7x10^3/uL (0.0-1.1) Eosinophils # (Auto) 0.3x10^3/uL (0.0-0.7) Basophils # (Auto) 0.1x10^3/uL (0.0-0.2) Sodium Level 141mmol/L (136-145) Potassium Level 4.1mmol/L (3.5-5.1) Chloride Level 108mmol/L (98-107) Carbon Dioxide Level 27mmol/L (21-32) Anion Gap 6 (6-14) Blood Urea Nitrogen 14mg/dL (7-20) Creatinine 0.9mg/dL (0.6-1.0) Estimated GFR (Cockcroft-Gault) 59.7 Glucose Level 146mg/dL (70-99) Calcium Level 8.4mg/dL (8.5-10.1) Phosphorus Level 4.4mg/dL (2.6-4.7) Magnesium Level 1.7mg/dL (1.8-2.4) Albumin 2.1g/dL (3.4-5.0) Objective Assessment Fever - better. UA ? contamination with Squamous cells and yeast Leukocytosis, improved Left foot wound /osteo. yeast on GS on Aug 04. CX: yeast. Wound is clean -h/o PSA -s/p left fifth toe open amputation with wound vac, 07/25 C diff. /. DM w/ peripheral neuropathy PVD. s/p failed LLE bypass graft IGOR Anemia s/p PRBCs / NSTEMI CHF on x-ray Yeast in urine on Fluconazole Plan Plan of Care Cont po vanc total of 14 days wound care Probiotics Cont Fluconazole for 2 more doses Ok to transfer D/w family CHRISTINE CARL MD Aug 10, 2016 08:35
[2016-08-10] MEDS: FLUCONAZOLE 100 MG TABLET. PO SCH (10:01)
[2016-08-10] MEDS: LACTOBACILLUS ACIDOPH & BULGAR 1 TABLET. PO SCH ×3 (10:01→18:40)
[2016-08-10] MEDS: PANTOPRAZOLE 40 MG TABLET. PO SCH (10:01)
[2016-08-10] MEDS: CLOPIDOGREL BISULFATE 75 MG TABLET PO SCH (10:01)
[2016-08-10] MEDS: ASPIRIN ENTERIC COATED 81 MG TABLET.DR. PO SCH (10:01)
[2016-08-10] MEDS: LISINOPRIL 2.5 MG TABLET PO SCH (10:01)
[2016-08-10] MEDS: PREGABALIN 50 MG CAPSULE PO SCH ×2 (10:01→20:44)
[2016-08-10] MEDS: LINAGLIPTIN 5 MG TABLET PO SCH (10:01)
[2016-08-10] MEDS: METOPROLOL TART IMMED RELEASE 25 MG TABLET PO SCH ×2 (10:02→20:47)
--- NOTE | 2016-08-10 10:10 | PDOC ---
PROGRESS NOTES Subjective Subjective feels good ,want to go home Objective Objective Vital Signs Date Time Temp Pulse Resp B/P Pulse Ox O2 Delivery O2 Flow Rate FiO2 08/10/16 07:23 Nasal Cannula 2.0 08/10/16 07:00 98.9 81 18 159/57 95 98.9 Intake and Output 08/10/16 07:00 Intake Total 220 ml Output Total 700 ml Balance -480 ml Intake Oral 220 ml Output Urine Total 700 ml # Bowel Movements 1 Physical Exam Abdomen: Soft Heart: Regular rate, Normal S1, Normal S2, No murmurs Extremities: No edema General: Alert, Oriented X3 HEENT: Atraumatic Lungs: Clear to auscultation MUSCULOSKELETAL: No deformity Neuro: Normal speech, Strength at 5/5 X4 ext, Sensation intact, Cranial nerves 3-12 NL Psych/Mental Status: Mental status NL Diagnosis Problem List Problems Medical Problems: (1) NSTEMI (non-ST elevated myocardial infarction) Status: Acute (2) Sepsis Status: Acute (3) Urinary tract infection Status: Acute Assessment Assessment Problems Medical Problems: (1) NSTEMI (non-ST elevated myocardial infarction) Status: Acute (2) Sepsis Status: Acute (3) Urinary tract infection Status: Acute FINAL IMPRESSION: 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 hypotension. C diff colitis 1. Febrile illness, temperature of 103. 2. Sepsis, could be line infection. The patient has a PICC line in the right arm, could be Clostridium difficile colitis. 3. Diabetes, insulin dependent. 4. Hypothyroidism. 5. Peripheral vascular disease, bypass to both lower extremities. 6. Recent amputation of the left fifth toe for osteomyelitis, has open wound to heal. 7. Breast carcinoma, left mastectomy. 8. Anemia of chronic disease. 9. Protein-calorie malnutrition, mild to moderate. PLAN: d/c [facility].inc ambulation.home in 1-2 days cardiac cath-showed 3 vessel disease medical treatment. high risk for CABG or stent, medical treatment spoke with cardiology. yeast in wounds and urine on diflucan transfuse today for anemia hb 10 today . po vancomycin+add questran powder 1 po bid troponin elevated to 9.0 on heparin drip. cardiac cath once stable Off Levophed for hypotension. Oral avnco for c diff uti-yeast pot 3.8 replaced cr 1.3 cxr chf. Problems: Plan Plan of Care Problems Medical Problems: (1) NSTEMI (non-ST elevated myocardial infarction) Status: Acute (2) Sepsis Status: Acute (3) Urinary tract infection Status: Acute Comment Review of Relevant I have reviewed the following items kathleen (where applicable) has been applied. Labs Laboratory Tests Test 08/09/16 11:47 08/09/16 16:47 08/09/16 20:48 08/10/16 05:45 Glucose (Fingerstick) 130mg/dL (70-99) 146mg/dL (70-99) 208mg/dL (70-99) White Blood Count 8.3x10^3/uL (4.0-11.0) Red Blood Count 3.57x10^6/uL (3.50-5.40) Hemoglobin 9.9g/dL (12.0-15.5) Hematocrit 30.0% (36.0-47.0) Mean Corpuscular Volume 84fL (79-100) Mean Corpuscular Hemoglobin 28pg (25-35) Mean Corpuscular Hemoglobin Concent 33g/dL (31-37) Red Cell Distribution Width 16.7% (11.5-14.5) Platelet Count 227x10^3/uL (140-400) Neutrophils (%) (Auto) 74% (31-73) Lymphocytes (%) (Auto) 13% (24-48) Monocytes (%) (Auto) 8% (0-9) Eosinophils (%) (Auto) 3% (0-3) Basophils (%) (Auto) 1% (0-3) Neutrophils # (Auto) 6.2x10^3uL (1.8-7.7) Lymphocytes # (Auto) 1.1x10^3/uL (1.0-4.8) Monocytes # (Auto) 0.7x10^3/uL (0.0-1.1) Eosinophils # (Auto) 0.3x10^3/uL (0.0-0.7) Basophils # (Auto) 0.1x10^3/uL (0.0-0.2) Sodium Level 141mmol/L (136-145) Potassium Level 4.1mmol/L (3.5-5.1) Chloride Level 108mmol/L (98-107) Carbon Dioxide Level 27mmol/L (21-32) Anion Gap 6 (6-14) Blood Urea Nitrogen 14mg/dL (7-20) Creatinine 0.9mg/dL (0.6-1.0) Estimated GFR (Cockcroft-Gault) 59.7 Glucose Level 146mg/dL (70-99) Calcium Level 8.4mg/dL (8.5-10.1) Phosphorus Level 4.4mg/dL (2.6-4.7) Magnesium Level 1.7mg/dL (1.8-2.4) Albumin 2.1g/dL (3.4-5.0) Microbiology 08/04/16 Blood Culture - Final, Complete NO GROWTH AFTER 5 DAYS 08/04/16 Urine Culture - Final, Complete 08/04/16 Urine Culture Result 1 (AMADOU) - Final, Complete 08/04/16 Gram Stain - Final, Complete Vitals/I & O Vital Sign - Last 24 Hours 08/09/16 08/09/16 08/09/16 08/09/16 12:07 15:05 19:54 20:00 Temp 98.8 99.0 98.8 99.0 Pulse 76 82 83 Resp 22 18 B/P 147/76 175/78 170/63 Pulse Ox 98 96 94 O2 Delivery Nasal Cannula Nasal Cannula Nasal Cannula Nasal Cannula O2 Flow Rate 2.0 2.0 2.0 2.0 08/09/16 08/09/16 08/10/16 08/10/16 21:17 23:34 03:02 07:00 Temp 98.4 98.4 98.9 98.4 98.4 98.9 Pulse 83 77 74 81 Resp 18 16 18 B/P 170/63 157/65 144/60 159/57 Pulse Ox 92 91 95 O2 Delivery Nasal Cannula Nasal Cannula Nasal Cannula O2 Flow Rate 1.0 1.0 1.0 08/10/16 07:23 O2 Delivery Nasal Cannula O2 Flow Rate 2.0 Intake and Output 08/09/16 08/09/16 08/10/16 15:00 23:00 07:00 Intake Total 120 ml 100 ml Output Total 500 ml 200 ml Balance -380 ml -100 ml JAMES CORCORAN MD Aug 10, 2016 10:10
[2016-08-10] MEDS: VANCOMYCIN 125 MG/2.5 ML ORAL SOLUTION. PO SCH ×4 (10:23→20:44)
[2016-08-10] MEDS: silver sulfADIAZINE 1% CREAM 25GM TUBE. TP SCH (10:23)
[2016-08-10] MEDS: ANASTROZOLE 1 MG TABLET PO SCH (10:27)
[2016-08-10 10:59] VITALS: BP 160/71
[2016-08-10] MEDS ORDERED: LISINOPRIL 10 MG TABLET PO ONE (11:45)
--- NOTE | 2016-08-10 11:52 | PDOC ---
KAYLA WAITE PSYCHOLOGIST CLINICAL 08/10/16 1152: CARDIO Progress Notes Date and Time Date of Service 08/10/2016 Time of Evaluation 1120 Subjective Subjective: No Chest Pain, No shortness of breath, No Palpitations, No Dizziness Vitals Vitals Vital Signs Date Time Temp Pulse Resp B/P Pulse Ox O2 Delivery O2 Flow Rate FiO2 08/10/16 10:59 98.1 81 18 160/71 96 Nasal Cannula 1.0 98.1 Weight Weight [ ] Input and Output Intake and Output Intake and Output 08/10/16 07:00 Intake Total 220 ml Output Total 700 ml Balance -480 ml Intake Oral 220 ml Output Urine Total 700 ml # Bowel Movements 1 Laboratory Labs Laboratory Tests Test 08/09/16 11:47 08/09/16 16:47 08/09/16 20:48 08/10/16 05:45 Glucose (Fingerstick) 130mg/dL (70-99) 146mg/dL (70-99) 208mg/dL (70-99) White Blood Count 8.3x10^3/uL (4.0-11.0) Red Blood Count 3.57x10^6/uL (3.50-5.40) Hemoglobin 9.9g/dL (12.0-15.5) Hematocrit 30.0% (36.0-47.0) Mean Corpuscular Volume 84fL (79-100) Mean Corpuscular Hemoglobin 28pg (25-35) Mean Corpuscular Hemoglobin Concent 33g/dL (31-37) Red Cell Distribution Width 16.7% (11.5-14.5) Platelet Count 227x10^3/uL (140-400) Neutrophils (%) (Auto) 74% (31-73) Lymphocytes (%) (Auto) 13% (24-48) Monocytes (%) (Auto) 8% (0-9) Eosinophils (%) (Auto) 3% (0-3) Basophils (%) (Auto) 1% (0-3) Neutrophils # (Auto) 6.2x10^3uL (1.8-7.7) Lymphocytes # (Auto) 1.1x10^3/uL (1.0-4.8) Monocytes # (Auto) 0.7x10^3/uL (0.0-1.1) Eosinophils # (Auto) 0.3x10^3/uL (0.0-0.7) Basophils # (Auto) 0.1x10^3/uL (0.0-0.2) Sodium Level 141mmol/L (136-145) Potassium Level 4.1mmol/L (3.5-5.1) Chloride Level 108mmol/L (98-107) Carbon Dioxide Level 27mmol/L (21-32) Anion Gap 6 (6-14) Blood Urea Nitrogen 14mg/dL (7-20) Creatinine 0.9mg/dL (0.6-1.0) Estimated GFR (Cockcroft-Gault) 59.7 Glucose Level 146mg/dL (70-99) Calcium Level 8.4mg/dL (8.5-10.1) Phosphorus Level 4.4mg/dL (2.6-4.7) Magnesium Level 1.7mg/dL (1.8-2.4) Albumin 2.1g/dL (3.4-5.0) Microbiology Micro Microbiology 08/04/16 Blood Culture - Final, Complete NO GROWTH AFTER 5 DAYS 08/04/16 Urine Culture - Final, Complete 08/04/16 Urine Culture Result 1 (AMADOU) - Final, Complete 08/04/16 Gram Stain - Final, Complete Physical Exam HEENT: Neck Supple W Full Motion Chest: Symmetric LUNGS: Clear to Auscultation, Other (right basilar crackles) Heart: S1S2, RRR (SR no significant ectopies overnight) Abdomen: Soft N/T Extremities: No Calf Tenderness, Other (1+ bilateral LE pitting edema) Neurology: alert, oriented, follow commands Assessment Assessment 1. Sepsis/hypotension: much improved 2. Left foot osteomyelitis/UTI/C-diff 3. Acute systolic CHF/ischemic cardiomyopathy: compensated 4. CAD/NSTEMI/TVD 5. Hx of PAD with past bypass 6. HTN: labile 7. Hyperlipidemia Recommendations 1. Continue with secondary prevention including DAPT. 2. Not a surgical candidate, significant CAD and considering for complex PCI with impella assistance. Will need to discuss with family re procedure. Will discuss with primary front services agent. 3. Continue antibiotic therapy per ID. 4. Replace Mg 5. Increase lisinopril. Continue with IV PRN hydralazine. Start on low dose lasix. 6. Lytes and Mg in AM. PASNOORI,GERI R MD 08/11/16 0906: CARDIO Progress Notes Assessment Assessment Patient seen and examined 08/10/16. Agree with TUTORING CLINICIAN's assessment and plan. Patient presently chest pain-free. She was deemed a poor surgical candidate for coronary artery bypass surgery. The option of high risk PCI was discussed in detail with patient and family who opted for conservative medical management. Continue intravenous antibiotics per ID team. KAYLA WAITE APRN Aug 10, 2016 11:52 GERI ANGULO MD Aug 11, 2016 09:06
[2016-08-10 15:43] VITALS: BP 173/72
[2016-08-10] MEDS: INSULIN DETEMIR 300 UNITS/3 ML INSULN.PEN. SQ SCH (18:43)
[2016-08-10 19:00] VITALS: BP 183/77
[2016-08-10] MEDS: ATORVASTATIN CALCIUM 10 MG TABLET. PO SCH (20:45)
[2016-08-10] MEDS: AMITRIPTYLINE HCL 25 MG TABLET PO SCH (20:45)
[2016-08-10 23:00] VITALS: BP 177/72
[2016-08-11 04:00] VITALS: BP 158/69
[2016-08-11] MEDS: LEVOTHYROXINE 50 MCG TABLET PO SCH (05:58)
[2016-08-11 07:07] LABS: ALBUMIN 2.1 g/dL (3.4-5.0); CALCIUM 8.5 mg/dL (8.5-10.1); CREATININE 0.8 mg/dL (0.6-1.0); GFR 68.3; PHOSPHORUS 5.7 mg/dL (2.6-4.7); POTASSIUM 4.1 mmol/L (3.5-5.1)
[2016-08-11 07:54] VITALS: BP 158/60
[2016-08-11] MEDS: INSULIN ASPART 300 UNITS/3 ML INSULN.PEN SQ SCH ×6 (08:00→17:14)
[2016-08-11] MEDS: ASPIRIN ENTERIC COATED 81 MG TABLET.DR. PO SCH (08:08)
[2016-08-11] MEDS: PANTOPRAZOLE 40 MG TABLET. PO SCH (08:08)
[2016-08-11] MEDS: LACTOBACILLUS ACIDOPH & BULGAR 1 TABLET. PO SCH ×3 (08:09→17:10)
[2016-08-11] MEDS: CLOPIDOGREL BISULFATE 75 MG TABLET PO SCH (08:09)
[2016-08-11] MEDS: METOPROLOL TART IMMED RELEASE 25 MG TABLET PO SCH ×2 (08:09→22:05)
[2016-08-11] MEDS: PREGABALIN 50 MG CAPSULE PO SCH ×2 (08:10→22:05)
[2016-08-11] MEDS: FLUCONAZOLE 100 MG TABLET. PO SCH (08:10)
[2016-08-11] MEDS: LINAGLIPTIN 5 MG TABLET PO SCH (08:11)
[2016-08-11] MEDS: VANCOMYCIN 125 MG/2.5 ML ORAL SOLUTION. PO SCH ×4 (08:11→22:06)
[2016-08-11] MEDS: ANASTROZOLE 1 MG TABLET PO SCH (08:18)
[2016-08-11] MEDS ORDERED: LISINOPRIL 10 MG TABLET PO SCH (09:00)
[2016-08-11] MEDS: silver sulfADIAZINE 1% CREAM 25GM TUBE. TP SCH (09:00)
[2016-08-11] MEDS: FUROSEMIDE 20 MG TABLET PO SCH (09:16)
[2016-08-11] MEDS ORDERED: LISINOPRIL 10 MG TABLET PO ONE (09:30)
--- NOTE | 2016-08-11 09:32 | PDOC ---
CARDIO Progress Notes Date and Time Date of Service 08/11/2016 Time of Evaluation 0920 Subjective Subjective: No Chest Pain, No shortness of breath, No Palpitations, No Dizziness Vitals Vitals Vital Signs Date Time Temp Pulse Resp B/P Pulse Ox O2 Delivery O2 Flow Rate FiO2 08/11/16 09:16 72 158/60 08/11/16 07:54 98.6 16 100 Room Air 98.6 08/10/16 15:43 1.0 Weight Weight [ ] Input and Output Intake and Output Intake and Output 08/11/16 07:00 Intake Total 270 ml Output Total 600 ml Balance -330 ml Intake Oral 270 ml Output Urine Total 600 ml Laboratory Labs Laboratory Tests Test 08/10/16 11:45 08/10/16 17:09 08/11/16 06:30 08/11/16 07:57 Glucose (Fingerstick) 117mg/dL (70-99) 129mg/dL (70-99) 116mg/dL (70-99) Heparin Anti-Xa Act, Unfractionated 0.15IU/mL (0.30-0.70) Sodium Level 142mmol/L (136-145) Potassium Level 4.1mmol/L (3.5-5.1) Chloride Level 108mmol/L (98-107) Carbon Dioxide Level 27mmol/L (21-32) Anion Gap 7 (6-14) Blood Urea Nitrogen 15mg/dL (7-20) Creatinine 0.8mg/dL (0.6-1.0) Estimated GFR (Cockcroft-Gault) 68.3 Glucose Level 133mg/dL (70-99) Calcium Level 8.5mg/dL (8.5-10.1) Phosphorus Level 5.7mg/dL (2.6-4.7) Albumin 2.1g/dL (3.4-5.0) Microbiology Micro Microbiology 08/04/16 Blood Culture - Final, Complete NO GROWTH AFTER 5 DAYS 08/09/16 Urine Culture - Preliminary, Resulted 08/09/16 Urine Culture Result 1 (AMADOU) - Preliminary, Resulted 08/04/16 Gram Stain - Final, Complete Physical Exam HEENT: Neck Supple W Full Motion Chest: Symmetric LUNGS: Clear to Auscultation, Other (right basilar crackles) Heart: S1S2, RRR (SR no significant ectopies overnight) Abdomen: Soft N/T Extremities: No Calf Tenderness, Other (1+ bilateral LE pitting edema) Neurology: alert, oriented, follow commands Assessment Assessment 1. Sepsis/hypotension: much improved 2. Left foot osteomyelitis/UTI/C-diff 3. Acute systolic CHF/ischemic cardiomyopathy: compensated 4. CAD/NSTEMI/TVD 5. Hx of PAD with past bypass 6. HTN: labile 7. Hyperlipidemia Recommendations 1. Continue with secondary prevention including DAPT. 2. Not a surgical candidate, discussion with family with concluded conservative measures only and opt out any PCIs. 3. Continue antibiotic therapy per ID. 4. Continue with po diuretic therapy, increase metoprolol and lisinopril. Hydralazine IV prn. 5. Continue with med optimization 6. Rehab as tolerated. Possible DC tomorrow. Follow up in office in 2-3 weeks. KAYLA WAITE APRN Aug 11, 2016 09:32
--- NOTE | 2016-08-11 10:14 | PDOC ---
PROGRESS NOTES Subjective Subjective anxious to go home Objective Objective Vital Signs Date Time Temp Pulse Resp B/P Pulse Ox O2 Delivery O2 Flow Rate FiO2 08/11/16 09:16 72 158/60 08/11/16 08:00 Nasal Cannula 2.0 08/11/16 07:54 98.6 16 100 98.6 Intake and Output 08/11/16 07:00 Intake Total 270 ml Output Total 600 ml Balance -330 ml Intake Oral 270 ml Output Urine Total 600 ml Physical Exam Abdomen: Soft Heart: Regular rate, Normal S1, Normal S2, No murmurs Extremities: No edema General: Alert, Oriented X3 HEENT: Atraumatic Lungs: Clear to auscultation MUSCULOSKELETAL: No deformity Neuro: Normal speech, Strength at 5/5 X4 ext, Sensation intact, Cranial nerves 3-12 NL Psych/Mental Status: Mental status NL Diagnosis Problem List Problems Medical Problems: (1) NSTEMI (non-ST elevated myocardial infarction) Status: Acute (2) Sepsis Status: Acute (3) Urinary tract infection Status: Acute Assessment Assessment Problems Medical Problems: (1) NSTEMI (non-ST elevated myocardial infarction) Status: Acute (2) Sepsis Status: Acute (3) Urinary tract infection Status: Acute FINAL IMPRESSION: 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 hypotension. C diff colitis wounds left foot 1. Febrile illness, temperature of 103. 2. Sepsis, could be line infection. The patient has a PICC line in the right arm, could be Clostridium difficile colitis. 3. Diabetes, insulin dependent. 4. Hypothyroidism. 5. Peripheral vascular disease, bypass to both lower extremities. 6. Recent amputation of the left fifth toe for osteomyelitis, has open wound to heal. 7. Breast carcinoma, left mastectomy. 8. Anemia of chronic disease. 9. Protein-calorie malnutrition, mild to moderate. PLAN: social service consult. d/c home tomorrow. d/c picc line d/cd agu[facility].inc ambulation.home in 1 day cardiac cath-showed 3 vessel disease medical treatment. high risk for CABG or stent, medical treatment spoke with cardiology. yeast in wounds and urine on diflucan transfuse today for anemia hb 10 today . po vancomycin+add questran powder 1 po bid troponin elevated to 9.0 on heparin drip. cardiac cath once stable Off Levophed for hypotension. Oral avnco for c diff uti-yeast pot 3.8 replaced cr 1.3 cxr chf. Problems: Plan Plan of Care Problems Medical Problems: (1) NSTEMI (non-ST elevated myocardial infarction) Status: Acute (2) Sepsis Status: Acute (3) Urinary tract infection Status: Acute Comment Review of Relevant I have reviewed the following items kathleen (where applicable) has been applied. Labs Laboratory Tests Test 08/10/16 11:45 08/10/16 17:09 08/11/16 06:30 08/11/16 07:57 Glucose (Fingerstick) 117mg/dL (70-99) 129mg/dL (70-99) 116mg/dL (70-99) Heparin Anti-Xa Act, Unfractionated 0.15IU/mL (0.30-0.70) Sodium Level 142mmol/L (136-145) Potassium Level 4.1mmol/L (3.5-5.1) Chloride Level 108mmol/L (98-107) Carbon Dioxide Level 27mmol/L (21-32) Anion Gap 7 (6-14) Blood Urea Nitrogen 15mg/dL (7-20) Creatinine 0.8mg/dL (0.6-1.0) Estimated GFR (Cockcroft-Gault) 68.3 Glucose Level 133mg/dL (70-99) Calcium Level 8.5mg/dL (8.5-10.1) Phosphorus Level 5.7mg/dL (2.6-4.7) Albumin 2.1g/dL (3.4-5.0) Microbiology 08/04/16 Blood Culture - Final, Complete NO GROWTH AFTER 5 DAYS 08/09/16 Urine Culture - Preliminary, Resulted 08/09/16 Urine Culture Result 1 (AMADOU) - Preliminary, Resulted 08/04/16 Gram Stain - Final, Complete Medications Current Medications Furosemide (Lasix) 20 mg DAILY PO Last administered on 08/11/16 09:16; Start at 09:00 Lisinopril (Prinivil) 10 mg 1X ONCE PO Last administered on 08/10/16 12:44; Start 08/10/16 at 11:45; Stop 08/10/16 at 11:46; Status DC Lisinopril (Prinivil) 10 mg DAILY PO Last administered on 2/9/17at 09:16; Start 08/11/16 at 09:00; Stop 08/11/16 at 09:33; Status DC Lisinopril (Prinivil) 20 mg 1X ONCE PO ; Start 08/11/16 at 09:30; Stop 08/11/16 at 09:35; Status DC Lisinopril (Prinivil) 40 mg DAILY PO ; Start 08/12/16 at 09:00 Metoprolol Tartrate (Lopressor) 25 mg BID PO ; Start 08/11/16 at 21:00 Vitals/I & O Vital Sign - Last 24 Hours 08/10/16 08/10/16 08/10/16 08/10/16 10:59 12:44 15:43 19:00 Temp 98.1 97.9 97.0 98.1 97.9 97.0 Pulse 81 81 78 83 Resp 18 18 18 B/P 160/71 160/71 173/72 183/77 Pulse Ox 96 88 93 O2 Delivery Nasal Cannula Nasal Cannula Room Air O2 Flow Rate 1.0 1.0 08/10/16 08/10/16 08/10/16 08/11/16 20:00 20:47 23:00 04:00 Temp 97.8 97.8 Pulse 80 77 79 Resp 16 18 B/P 183/77 177/72 158/69 Pulse Ox 100 97 O2 Delivery Nasal Cannula Room Air 08/11/16 08/11/16 08/11/16 08/11/16 07:54 08:00 08:09 09:16 Temp 98.6 98.6 Pulse 72 72 72 Resp 16 B/P 158/60 158/60 158/60 Pulse Ox 100 O2 Delivery Room Air Nasal Cannula O2 Flow Rate 2.0 Intake and Output 08/10/16 08/10/16 08/11/16 15:00 23:00 07:00 Intake Total 120 ml 150 ml Output Total 400 ml 200 ml Balance -400 ml 120 ml -50 ml JAMES CORCORAN MD Aug 11, 2016 10:14
[2016-08-11 11:27] VITALS: BP 165/70
[2016-08-11 15:20] VITALS: BP 178/72
[2016-08-11] MEDS: INSULIN DETEMIR 300 UNITS/3 ML INSULN.PEN. SQ SCH (18:12)
[2016-08-11 19:42] VITALS: BP 191/81
[2016-08-11] MEDS: AMITRIPTYLINE HCL 25 MG TABLET PO SCH (22:05)
[2016-08-11] MEDS: ATORVASTATIN CALCIUM 10 MG TABLET. PO SCH (22:05)
[2016-08-11] MEDS: hydrALAZINE 20 MG/ML VIAL. IVP PRN (22:06)
[2016-08-11 22:51] VITALS: BP 128/57
[2016-08-12 02:15] VITALS: BP 125/56
[2016-08-12 05:18] LABS: ALBUMIN 2.1 g/dL (3.4-5.0); CALCIUM 8.5 mg/dL (8.5-10.1); CREATININE 0.9 mg/dL (0.6-1.0); GFR 59.7; PHOSPHORUS 4.7 mg/dL (2.6-4.7)
[2016-08-12 07:27] VITALS: BP 144/60
[2016-08-12] MEDS: INSULIN ASPART 300 UNITS/3 ML INSULN.PEN SQ SCH ×3 (08:00→12:00)
[2016-08-12] MEDS: FUROSEMIDE 20 MG TABLET PO SCH (08:52)
[2016-08-12] MEDS: LACTOBACILLUS ACIDOPH & BULGAR 1 TABLET. PO SCH ×2 (08:52→12:27)
[2016-08-12] MEDS: CLOPIDOGREL BISULFATE 75 MG TABLET PO SCH (08:52)
[2016-08-12] MEDS: LEVOTHYROXINE 50 MCG TABLET PO SCH (08:52)
[2016-08-12] MEDS: PANTOPRAZOLE 40 MG TABLET. PO SCH (08:53)
[2016-08-12] MEDS: PREGABALIN 50 MG CAPSULE PO SCH (08:53)
[2016-08-12] MEDS: FLUCONAZOLE 100 MG TABLET. PO SCH (08:53)
[2016-08-12] MEDS: ASPIRIN ENTERIC COATED 81 MG TABLET.DR. PO SCH (08:53)
[2016-08-12] MEDS: LINAGLIPTIN 5 MG TABLET PO SCH (08:53)
[2016-08-12] MEDS: METOPROLOL TART IMMED RELEASE 25 MG TABLET PO SCH (08:55)
[2016-08-12] MEDS: silver sulfADIAZINE 1% CREAM 25GM TUBE. TP SCH (08:56)
[2016-08-12] MEDS: ANASTROZOLE 1 MG TABLET PO SCH (08:59)
[2016-08-12] MEDS ORDERED: LISINOPRIL 40 MG TABLET. PO SCH (09:00)
[2016-08-12] MEDS: VANCOMYCIN 125 MG/2.5 ML ORAL SOLUTION. PO SCH (09:37)
--- NOTE | 2016-08-12 09:48 | PDOC ---
PROGRESS NOTES Subjective Subjective want to go home Objective Objective Vital Signs Date Time Temp Pulse Resp B/P Pulse Ox O2 Delivery O2 Flow Rate FiO2 08/12/16 08:55 72 144/60 08/12/16 07:27 98.1 18 95 Nasal Cannula 1.0 98.1 Intake and Output 08/12/16 07:00 Intake Total 350 ml Output Total 700 ml Balance -350 ml Intake Oral 350 ml Output Urine Total 700 ml # Voids 1 # Bowel Movements 5 Physical Exam Abdomen: Soft Heart: Regular rate, Normal S1, Normal S2, No murmurs Extremities: No edema General: Alert, Oriented X3 HEENT: Atraumatic Lungs: Clear to auscultation MUSCULOSKELETAL: No deformity Neuro: Normal speech, Strength at 5/5 X4 ext, Sensation intact, Cranial nerves 3-12 NL Psych/Mental Status: Mental status NL COMMENT lt foot ulcer Diagnosis Problem List Problems Medical Problems: (1) NSTEMI (non-ST elevated myocardial infarction) Status: Acute (2) Sepsis Status: Acute (3) Urinary tract infection Status: Acute Assessment Assessment Problems Medical Problems: (1) NSTEMI (non-ST elevated myocardial infarction) Status: Acute (2) Sepsis Status: Acute (3) Urinary tract infection Status: Acute FINAL IMPRESSION: stable for discharge 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 hypotension. C diff colitis wounds left foot 1. Febrile illness, temperature of 103. 2. Sepsis, could be line infection. The patient has a PICC line in the right arm, could be Clostridium difficile colitis. 3. Diabetes, insulin dependent. 4. Hypothyroidism. 5. Peripheral vascular disease, bypass to both lower extremities. 6. Recent amputation of the left fifth toe for osteomyelitis, has open wound to heal. 7. Breast carcinoma, left mastectomy. 8. Anemia of chronic disease. 9. Protein-calorie malnutrition, mild to moderate. PLAN: 6 mts walk. d/c picc ;ine d/c home with home health. social service consult. d/c home tomorrow. d/c picc line d/cd ag[facility].inc ambulation.home in 1 day cardiac cath-showed 3 vessel disease medical treatment. high risk for CABG or stent, medical treatment spoke with cardiology. yeast in wounds and urine on diflucan transfuse today for anemia hb 10 today . po vancomycin+add questran powder 1 po bid troponin elevated to 9.0 on heparin ip. cardiac cath once stable Off Levophed for hypotension. Oral avnco for c diff uti-yeast pot 3.8 replaced cr 1.3 cxr chf. Problems: Plan Plan of Care Problems Medical Problems: (1) NSTEMI (non-ST elevated myocardial infarction) Status: Acute (2) Sepsis Status: Acute (3) Urinary tract infection Status: Acute Comment Review of Relevant I have reviewed the following items kathleen (where applicable) has been applied. Labs Laboratory Tests Test 08/11/16 12:15 08/11/16 17:08 08/11/16 20:36 08/12/16 05:00 Glucose (Fingerstick) 109mg/dL (70-99) 242mg/dL (70-99) 209mg/dL (70-99) Sodium Level 141mmol/L (136-145) Potassium Level 4.0mmol/L (3.5-5.1) Chloride Level 107mmol/L (98-107) Carbon Dioxide Level 29mmol/L (21-32) Anion Gap 5 (6-14) Blood Urea Nitrogen 19mg/dL (7-20) Creatinine 0.9mg/dL (0.6-1.0) Estimated GFR (Cockcroft-Gault) 59.7 Glucose Level 162mg/dL (70-99) Calcium Level 8.5mg/dL (8.5-10.1) Phosphorus Level 4.7mg/dL (2.6-4.7) Albumin 2.1g/dL (3.4-5.0) Test 08/12/16 07:29 Glucose (Fingerstick) 104mg/dL (70-99) Microbiology 08/04/16 Blood Culture - Final, Complete NO GROWTH AFTER 5 DAYS 08/09/16 Urine Culture - Final, Complete 08/09/16 Urine Culture Result 1 (AMADOU) - Final, Complete 08/04/16 Gram Stain - Final, Complete Medications Current Medications Lisinopril (Prinivil) 40 mg DAILY PO Last administered on 08/12/16 08:52; Start 08/12/16 at 09:00 Metoprolol Tartrate (Lopressor) 25 mg BID PO Last administered on 08/12/16 08: 55; Start 08/11/16 at 21:00 Vitals/I & O Vital Sign - Last 24 Hours 08/11/16 08/11/16 08/11/16 08/11/16 11:27 12:17 15:20 19:42 Temp 98.3 97.3 97.6 98.3 97.3 97.6 Pulse 77 77 77 82 Resp 18 18 18 B/P 165/70 165/70 178/72 191/81 Pulse Ox 97 98 96 O2 Delivery Nasal Cannula Nasal Cannula Room Air O2 Flow Rate 1.0 1.0 08/11/16 08/11/16 08/11/16 08/11/16 20:00 22:05 22:06 22:51 Temp 99.0 99.0 Pulse 82 Resp 20 B/P 191/81 191/81 128/57 Pulse Ox 93 O2 Delivery Nasal Cannula Nasal Cannula O2 Flow Rate 1.0 1.0 08/12/16 08/12/16 08/12/16 08/12/16 02:15 07:27 08:52 08:55 Temp 99.0 98.1 99.0 98.1 Pulse 83 72 72 72 Resp B/P 125/56 144/60 144/60 144/60 Pulse Ox 93 95 O2 Delivery Nasal Cannula Nasal Cannula O2 Flow Rate 1.0 1.0 Intake and Output 08/11/16 08/11/16 08/12/16 15:00 23:00 07:00 Intake Total 350 ml Output Total 300 ml 400 ml Balance 50 ml -400 ml JAMES CORCORAN MD Aug 12, 2016 09:48
[2016-08-12] MEDS ORDERED: LISI40TA PO (09:58)
[2016-08-12] MEDS ORDERED: ATOR10TA60 PO (09:58)
[2016-08-12] MEDS ORDERED: METO25TA4 PO (09:58)
[2016-08-12] MEDS ORDERED: Vancomycin Hcl PO (09:58)
[2016-08-12 11:50] VITALS: BP 123/62
[2016-08-12 11:55] VITALS: BP 176/77
--- NOTE | 2016-08-12 12:57 | PDOC ---
PROGRESS NOTES Subjective Subjective Per daughter at bedside (interpreting) "I am ready to go home." Objective Objective Vascular Surgery follow up: Patient dressed in clothes and ready for discharge. Left foot dressing was just changed about 30 minutes ago. Daughter states wound has improved with less pallor around wound edges since the last time I looked at it last week. No local erythema to foot. Assessment/Plan: 1. PAD - known occluded bypass graft to LLE. Recent amp of left 5th toe with non-healing of amp site. Wound vac therapy stopped due to dry wound base. Continue daily local wound care with cleansing and Silvadene to keep wound base slightly moist. Scheduled with Dr. Hong in 2 weeks to follow up and make further decisions about if add'l wound debridement necessary. Need to recover from ACS/Non-STEMI. Continue antiplatelet therapy on ASA+Plavix upon discharge. Vital Signs Date Time Temp Pulse Resp B/P Pulse Ox O2 Delivery O2 Flow Rate FiO2 08/12/16 11:55 98.2 70 18 176/77 95 Nasal Cannula 1.0 98.2 Intake and Output 08/12/16 07:00 Intake Total 350 ml Output Total 700 ml Balance -350 ml Intake Oral 350 ml Output Urine Total 700 ml # Voids 1 # Bowel Movements 5 Assessment Assessment Problems Medical Problems: (1) NSTEMI (non-ST elevated myocardial infarction) Status: Acute (2) Osteomyelitis Status: Acute (3) Sepsis Status: Acute (4) Urinary tract infection Status: Acute Comment Review of Relevant I have reviewed the following items kathleen (where applicable) has been applied. Labs Laboratory Tests Test 08/10/16 17:09 08/11/16 06:30 08/11/16 07:57 08/11/16 12:15 Glucose (Fingerstick) 129mg/dL (70-99) 116mg/dL (70-99) 109mg/dL (70-99) Heparin Anti-Xa Act, Unfractionated 0.15IU/mL (0.30-0.70) Sodium Level 142mmol/L (136-145) Potassium Level 4.1mmol/L (3.5-5.1) Chloride Level 108mmol/L (98-107) Carbon Dioxide Level 27mmol/L (21-32) Anion Gap 7 (6-14) Blood Urea Nitrogen 15mg/dL (7-20) Creatinine 0.8mg/dL (0.6-1.0) Estimated GFR (Cockcroft-Gault) 68.3 Glucose Level 133mg/dL (70-99) Calcium Level 8.5mg/dL (8.5-10.1) Phosphorus Level 5.7mg/dL (2.6-4.7) Albumin 2.1g/dL (3.4-5.0) Test 08/11/16 17:08 08/11/16 20:36 08/12/16 05:00 08/12/16 07:29 Glucose (Fingerstick) 242mg/dL (70-99) 209mg/dL (70-99) 104mg/dL (70-99) Sodium Level 141mmol/L (136-145) Potassium Level 4.0mmol/L (3.5-5.1) Chloride Level 107mmol/L (98-107) Carbon Dioxide Level 29mmol/L (21-32) Anion Gap 5 (6-14) Blood Urea Nitrogen 19mg/dL (7-20) Creatinine 0.9mg/dL (0.6-1.0) Estimated GFR (Cockcroft-Gault) 59.7 Glucose Level 162mg/dL (70-99) Calcium Level 8.5mg/dL (8.5-10.1) Phosphorus Level 4.7mg/dL (2.6-4.7) Albumin 2.1g/dL (3.4-5.0) Laboratory Tests Test 08/11/16 17:08 08/11/16 20:36 08/12/16 05:00 08/12/16 07:29 Glucose (Fingerstick) 242mg/dL (70-99) 209mg/dL (70-99) 104mg/dL (70-99) Sodium Level 141mmol/L (136-145) Potassium Level 4.0mmol/L (3.5-5.1) Chloride Level 107mmol/L (98-107) Carbon Dioxide Level 29mmol/L (21-32) Anion Gap 5 (6-14) Blood Urea Nitrogen 19mg/dL (7-20) Creatinine 0.9mg/dL (0.6-1.0) Estimated GFR (Cockcroft-Gault) 59.7 Glucose Level 162mg/dL (70-99) Calcium Level 8.5mg/dL (8.5-10.1) Phosphorus Level 4.7mg/dL (2.6-4.7) Albumin 2.1g/dL (3.4-5.0) Microbiology 08/04/16 Blood Culture - Final, Complete NO GROWTH AFTER 5 DAYS 08/09/16 Urine Culture - Final, Complete 08/09/16 Urine Culture Result 1 (AMADOU) - Final, Complete 08/04/16 Gram Stain - Final, Complete Medications Current Medications Acetaminophen 1000 mg 1,000 mg 1X ONCE PO Last administered on 08/03/16 20:02 ; Start 08/03/16 at 20:00; Stop 08/03/16 at 20:01; Status DC Sodium Chloride 1,000 ml @ 1,000 mls/hr 1X ONCE IV Last administered on 20:02; Start 08/03/16 at 20:00; Stop 08/03/16 at 20:59; Status DC Ceftriaxone Sodium 50 ml @ 100 mls/hr 1X ONCE IV Last administered on 22:07; Start 08/03/16 at 21:00; Stop 08/03/16 at 21:29; Status DC Sodium Chloride (Iv Sodium Chloride 0.9% 500ml Bag) 500 ml @ 500 mls/hr 1X ONCE IV Last administered on 08/03/16 23:20; Start 08/03/16 at 21:30; Stop at 22:29; Status DC Ondansetron HCl 4 mg 4 mg PRN Q8HRS PRN IV NAUSEA/VOMITING; Start 08/03/16 at 21 :15; Stop 08/04/16 at 21:14; Status DC Sodium Chloride (Iv Sodium Chloride 0.9% 1000ml Bag) 1,000 ml @ 125 mls/hr Q8H IV Last administered on 08/04/16 05:12; Start 08/03/16 at 21:12; Stop 08/04/16 at 21:11; Status DC Acetaminophen 650 mg 650 mg PRN Q4HRS PRN PO FEVER Last administered on 10:51; Start 08/03/16 at 21:15; Stop 08/04/16 at 21:14; Status DC Vancomycin HCl/ Sodium Chloride (Iv Sodium Chloride 0.9% 500ml Bag) 500 ml @ 250 mls/hr 1X ONCE IV Last administered on 08/04/16 10:54; Start 08/04/16 at 09 :30; Stop 08/04/16 at 11:29; Status DC Vancomycin HCl 1 each 1 each PRN DAILY PRN MC SEE COMMENTS Last administered on 08/04/16 13:22; Start 08/04/16 at 09:15; Stop 08/05/16 at 08:02; Status DC Piperacillin Sod/ Tazobactam Sod/ Sodium Chloride (Zosyn/Iv Sodium Chloride 0.9 % 50ml) 50 ml @ 100 mls/hr Q6HRS IV Last administered on 08/06/16 06:04; Start 08/04/16 at 10:00; Stop 08/06/16 at 12:10; Status DC Vancomycin HCl 125 mg 125 mg [id number] PO Last administered on 08/12/16 09:37; Start 08/04/16 at 10:00 Fluconazole/ Sodium Chloride (Diflucan 200mg/ 100ml Premix) 100 ml @ 100 mls/ hr Q24H IV Last administered on 08/04/16 15:17; Start 08/04/16 at 10:00; Stop at 07:47; Status DC Acetaminophen (Tylenol) 325 mg PRN QID PRN PO FEVER Last administered on 04:06; Start 08/04/16 at 09:30 Acetaminophen/ Codeine Phosphate (Tylenol #3) 1 tab PRN BID PRN PO PAIN; Start 08/04/16 at 09:30 Amitriptyline HCl (Elavil) 25 mg HS PO Last administered on 08/11/16 22:05; Start 08/04/16 at 21:00 Amlodipine Besylate (Norvasc) 5 mg DAILY PO Last administered on 08/04/16 10:52 ; Start 08/04/16 at 10:30; Stop 08/05/16 at 09:21; Status DC Anastrozole (Arimidex) 1 mg DAILY PO Last administered on 08/12/16 08:59; Start 08/04/16 at 10:30 Aspirin (Ecotrin) 81 mg DAILY PO Last administered on 08/12/16 08:53; Start at 10:30 Clopidogrel Bisulfate (Plavix) 75 mg DAILY PO Last administered on 08/12/16 08 :52; Start 08/04/16 at 10:30 Furosemide (Lasix) 20 mg DAILY PO Last administered on 08/04/16 10:53; Start at 10:30; Stop 08/04/16 at 14:25; Status DC Insulin Aspart (Novolog) 7 units TIDWMEALS SQ Last administered on 08/12/16 09 :00; Start 08/04/16 at 12:00 Insulin Detemir (Levemir) 10 units DAILY@18 SQ ; Start 08/04/16 at 18:00; Stop at 18:00; Status DC Levothyroxine Sodium (Synthroid) 50 mcg DAILY07 PO Last administered on 08:52; Start 08/04/16 at 10:30 Linagliptin (Tradjenta) 5 mg DAILY PO Last administered on 08/12/16 08:53; Start 08/04/16 at 10:30 Lisinopril (Prinivil) 2.5 mg DAILY PO Last administered on 08/04/16 10:51; Start 08/04/16 at 10:30; Stop 08/04/16 at 15:22; Status DC Pantoprazole Sodium (Protonix) 40 mg DAILYAC PO Last administered on 08/12/16 08:53; Start 08/04/16 at 10:30 Pregabalin (Lyrica) 50 mg BID PO Last administered on 08/12/16 08:53; Start at 10:30 Silver Sulfadiazine (Silvadene) 1 suzanna DAILY TP Last administered on 08/12/16 08:56; Start 08/04/16 at 10:30 Dextrose 12.5 gm PRN Q15MIN PRN IV SEE COMMENTS; Start 08/04/16 at 09:30; Stop 08/05/16 at 18:24; Status DC Heparin Sodium (Porcine) 5,000 unit Q12HR SQ Last administered on 08/04/16 11: 09; Start 08/04/16 at 10:30; Stop 08/04/16 at 12:39; Status DC Insulin Detemir 20 units 20 units DAILY@18 SQ Last administered on 2/3/17at 18: 03; Start 08/04/16 at 18:00; Stop 08/05/16 at 18:23; Status DC Sodium Chloride (Iv Sodium Chloride 0.9% 1000ml Bag) 1,000 ml @ 100 mls/hr Q10H IV ; Start 08/04/16 at 10:30; Stop 08/05/16 at 09:21; Status DC Albuterol Sulfate 2.5 mg 2.5 mg 1X ONCE NEB Last administered on 08/04/16 12: 29; Start 08/04/16 at 12:30; Stop 08/04/16 at 12:31; Status DC Heparin Sodium/ Dextrose 500 ml @ 0 mls/hr CONT PRN IV SEE I/O RECORD Last administered on 08/07/16 13:34; Start 08/04/16 at 12:45; Stop 08/10/16 at 10:12; Status DC Heparin Sodium (Porcine) 1,600 unit PRN Q6HRS PRN IV FOR UFH LEVEL LESS THAN 0.2; Start 08/04/16 at 12:45; Stop 08/10/16 at 10:12; Status DC Info (Anti-Coagulation Monitoring By Pharmacy) 1 each PRN DAILY PRN MC SEE COMMENTS Last administered on 08/08/16 08:32; Start 08/04/16 at 12:45; Stop at 10:13; Status DC Furosemide (Lasix) 40 mg 1X ONCE IVP Last administered on 08/04/16 13:12; Start 08/04/16 at 13:00; Stop 08/04/16 at 13:01; Status DC Aspirin 325 mg 325 mg 1X ONCE PO Last administered on 08/04/16 15:26; Start at 13:00; Stop 08/04/16 at 13:01; Status DC Vancomycin HCl/ Sodium Chloride (Iv Sodium Chloride 0.9% 250ml) 250 ml @ 167 mls/hr Q24H IV ; Start 08/05/16 at 11:00; Stop 08/05/16 at 11:00; Status DC Vancomycin HCl 1 each 1X ONCE MC ; Start 08/06/16 at 10:30; Stop 08/06/16 at 10: 30; Status DC Insulin Aspart (Novolog) 3 units ONCE ONCE SQ Last administered on 08/04/16 14 :14; Start 08/04/16 at 14:30; Stop 08/04/16 at 14:31; Status DC Furosemide 40 mg 40 mg DAILY IVP Last administered on 08/06/16 09:22; Start 08/04/16 at 15:00; Stop 08/06/16 at 12:13; Status DC Magnesium Sulfate/ Dextrose 100 ml @ 25 mls/hr 1X ONCE IV Last administered on 08/04/16 15:08; Start 08/04/16 at 15:00; Stop 08/04/16 at 18:59; Status DC Potassium Chloride 100 ml @ 100 mls/hr Q1H IV Last administered on 08/04/16 18 :06; Start 08/04/16 at 15:00; Stop 08/04/16 at 16:59; Status DC Sodium Chloride 1,000 ml @ 495 mls/hr Q2H2M IV Last administered on 08/04/16 15:30; Start 08/04/16 at 15:30; Stop 08/04/16 at 19:30; Status DC Norepinephrine Bitartrate/Sodium Chloride (Levophed Vial/ Iv Sodium Chloride 0.9 % 250ml) 258 ml @ 0 mls/hr CONT PRN IV SEE I/O RECORD; Start 08/04/16 at 15:00; Stop 08/10/16 at 07:47; Status DC Vancomycin HCl 125 mg 125 mg [id number] PO ; Start 08/04/16 at 17:00; Stop 08/05/16 at 08:03; Status DC Sodium Bicarbonate/ Sodium Chloride (Iv Sodium Chloride 0.45%) 1,075 ml @ 100 mls/hr [id number] IV Last administered on 08/05/16 04:45; Start 08/04/16 at 18:00; Stop 08/06/16 at 03:19; Status DC Acetylcysteine (Mucomyst 20% Oral Solution) 1,200 mg BID PO Last administered on 08/06/16 09:21; Start 08/04/16 at 21:00; Stop 08/06/16 at 20:59; Status DC Insulin Aspart 10 units 10 units 1X ONCE SQ Last administered on 08/04/16 22: 55; Start 08/04/16 at 23:00; Stop 08/04/16 at 23:01; Status DC Potassium Chloride (KCl Premix 20meq) 50 ml @ 50 mls/hr Q1H IV ; Start 08/05/16 at 09:00; Stop 08/05/16 at 10:59; Status DC Metoprolol Tartrate (Lopressor) 12.5 mg BID PO Last administered on 08/11/16 08 :09; Start 08/05/16 at 09:15; Stop 08/11/16 at 09:33; Status DC Atorvastatin Calcium (Lipitor) 10 mg QHS PO Last administered on 08/11/16 22:05 ; Start 08/05/16 at 21:00 Lisinopril 2.5 mg 2.5 mg DAILY PO Last administered on 08/10/16 10:01; Start at 09:15; Stop 08/10/16 at 11:44; Status DC Magnesium Sulfate/ Dextrose 50 ml @ 25 mls/hr PRN DAILY PRN IV for Mag < 1.7 on am labs; Start 08/05/16 at 10:45; Stop 08/05/16 at 10:45; Status DC Magnesium Sulfate/ Dextrose 50 ml @ 25 mls/hr PRN DAILY PRN IV for Mag < 1.7 on am labs Last administered on 08/10/16 12:43; Start 08/05/16 at 10:45 Potassium Chloride 50 ml @ 50 mls/hr PRN Q6HRS PRN IV For K < 3.7; Start at 10:45 Potassium Chloride 50 ml @ 50 mls/hr PRN Q2HR PRN IV total of 40mEq for K < 3.5; Start 08/05/16 at 10:45 Potassium Acetate 20 meq/Sodium Chloride 110 ml @ 55 mls/hr Q2H IV Last administered on 08/05/16 11:59; Start 08/05/16 at 11:00; Stop 08/05/16 at 14:59; Status DC Potassium Acetate/ Sodium Chloride (Iv Sodium Chloride 0.9% 100ml) 110 ml @ 55 mls/hr Q2H IV Last administered on 08/05/16 21:40; Start 08/05/16 at 17:00; Stop 08/05/16 at 20:59; Status DC Insulin Detemir (Levemir) 30 units DAILY@18 SQ Last administered on 08/11/16 18 :12; Start 08/05/16 at 18:00 Insulin Aspart (Novolog) 0-7 UNITS TIDWMEALS SQ Last administered on 08/08/16 18:05; Start 08/06/16 at 08:00 Dextrose 12.5 gm PRN Q15MIN PRN IV SEE COMMENTS; Start 08/05/16 at 18:30 Insulin Detemir (Levemir) 10 units 1X ONCE SQ Last administered on 08/05/16 21 :42; Start 08/05/16 at 18:30; Stop 08/05/16 at 18:31; Status DC Insulin Aspart (Novolog) 7 units 1X ONCE SQ Last administered on 08/05/16 21: 42; Start 08/05/16 at 18:45; Stop 08/05/16 at 18:46; Status DC Lactobacillus Acidophilus 1 tab 1 tab TIDWMEALS PO Last administered on 12:27; Start 08/06/16 at 12:30 Potassium Phosphate 13.6 mmol/Sodium Chloride 104.5333 ml @ 52.267 m... Q2H IV Last administered on 08/06/16 18:59; Start 08/06/16 at 13:00; Stop 08/06/16 at 18:59; Status DC Sodium Bicarbonate/ Potassium Acetate/ Sodium Chloride (Iv Sodium Chloride 0.45% ) 1,070 ml @ 75 mls/hr [id number] IV ; Start 08/06/16 at 12:30; Stop 08/06/16 at 12: 30; Status DC Furosemide (Lasix) 20 mg 1X ONCE IVP Last administered on 08/07/16 12:04; Start 08/07/16 at 08:00; Stop 08/07/16 at 08:01; Status DC Darbepoetin Aidan (Aranesp) 60 mcg 1X ONCE SQ Last administered on 08/07/16 12: 03; Start 08/07/16 at 11:30; Stop 08/07/16 at 11:31; Status DC Acetylcysteine (Mucomyst 20% Oral Solution) 1,200 mg BID PO Last administered on 08/09/16 08:16; Start 08/07/16 at 21:00; Stop 08/09/16 at 20:59; Status DC Fluconazole 100 mg 100 mg DAILY PO Last administered on 08/12/16 08:53; Start 08/07/16 at 12:00 Potassium Chloride (KCl Premix 20meq) 50 ml @ 50 mls/hr Q1H IV Last administered on 08/08/16 01:00; Start 08/08/16 at 00:00; Stop 08/08/16 at 01:59; Status DC Lidocaine HCl 20 ml 20 ml STK-MED ONCE .ROUTE ; Start 08/08/16 at 11:47; Stop 08/08/16 at 11:48; Status DC Heparin Sodium/ Sodium Chloride 500 ml @ As Directed STK-MED ONCE .ROUTE ; Start 08/08/16 at 11:47; Stop 08/08/16 at 11:48; Status DC Iohexol (Omnipaque 300 Mg/ml) 100 ml STK-MED ONCE .ROUTE ; Start 08/08/16 at 11: 47; Stop 08/08/16 at 11:48; Status DC Nitroglycerin (Nitroglycerin) 200 mcg STK-MED ONCE .ROUTE ; Start 08/08/16 at 11: 52; Stop 08/08/16 at 11:53; Status DC Verapamil HCl (Verapamil) 5 mg STK-MED ONCE .ROUTE ; Start 08/08/16 at 11:52; Stop 08/08/16 at 11:53; Status DC Midazolam HCl (Versed) 2 mg STK-MED ONCE .ROUTE ; Start 08/08/16 at 11:52; Stop 08/08/16 at 11:53; Status DC Fentanyl Citrate (Fentanyl 2ml Vial) 100 mcg STK-MED ONCE .ROUTE ; Start at 11:52; Stop 08/08/16 at 11:53; Status DC Heparin Sodium (Porcine) 10,000 unit STK-MED ONCE .ROUTE ; Start 08/08/16 at 11: 52; Stop 08/08/16 at 11:53; Status DC Nitroglycerin (Nitroglycerin) 400 mcg 1X ONCE IART Last administered on 13:15; Start 08/08/16 at 13:15; Stop 08/08/16 at 13:16; Status DC Verapamil HCl (Verapamil) 5 mg 1X ONCE IART Last administered on 08/08/16 13: 15; Start 08/08/16 at 13:15; Stop 08/08/16 at 13:16; Status DC Heparin Sodium (Porcine) 2,500 unit 1X ONCE IART Last administered on 13:15; Start 08/08/16 at 13:15; Stop 08/08/16 at 13:16; Status DC Heparin Sodium/ Sodium Chloride 1,000 unit 1X ONCE IART Last administered on 13:15; Start 08/08/16 at 13:15; Stop 08/08/16 at 13:16; Status DC Midazolam HCl (Versed) 1.5 mg 1X ONCE IV Last administered on 08/08/16 13:15; Start 08/08/16 at 13:15; Stop 08/08/16 at 13:16; Status DC Fentanyl Citrate (Fentanyl 2ml Vial) 75 mcg 1X ONCE IV Last administered on 13:15; Start 08/08/16 at 13:15; Stop 08/08/16 at 13:16; Status DC Iohexol (Omnipaque 300 Mg/ml) 140 ml 1X ONCE IART Last administered on 13:15; Start 08/08/16 at 13:15; Stop 08/08/16 at 13:16; Status DC Lidocaine HCl 1 ml 1X ONCE IJ Last administered on 08/08/16 12:43; Start at 13:15; Stop 08/08/16 at 13:16; Status DC Hydralazine HCl (Apresoline) 10 mg PRN Q4HRS PRN IVP ELEVATED BP, SEE COMMENTS Last administered on 08/11/16 22:06; Start 08/08/16 at 15:00 Lisinopril (Prinivil) 10 mg DAILY PO Last administered on 08/11/16 09:16; Start 08/11/16 at 09:00; Stop 08/11/16 at 09:33; Status DC Lisinopril (Prinivil) 10 mg 1X ONCE PO Last administered on 08/10/16 12:44; Start 08/10/16 at 11:45; Stop 08/10/16 at 11:46; Status DC Furosemide (Lasix) 20 mg DAILY PO Last administered on 08/12/16 08:52; Start 08/11/16 at 09:00 Lisinopril (Prinivil) 40 mg DAILY PO Last administered on 08/12/16 08:52; Start 08/12/16 at 09:00 Metoprolol Tartrate (Lopressor) 25 mg BID PO Last administered on 08/12/16 08: 55; Start 08/11/16 at 21:00 Lisinopril (Prinivil) 20 mg 1X ONCE PO Last administered on 08/11/16 12:17; Start 08/11/16 at 09:30; Stop 08/11/16 at 09:35; Status DC Active Scripts Active [Vancomycin Hcl] 125 MG/2.5 ML Solution 125 Mg PO [id number] 5 Days Metoprolol Tartrate 25 Mg Tablet 25 Mg PO BID 30 Days Lisinopril 40 Mg Tablet 40 Mg PO DAILY 30 Days Atorvastatin Calcium 10 Mg Tablet 10 Mg PO QHS 30 Days Novolog Flexpen (Insulin Aspart) 300 Units/3 Ml Insuln.pen 7 Units SQ TIDWMEALS Reported [id number] Tablet (Multivit-Min/Iron Fum/Folic AC) 1 Each Tablet 1 Each PO Acetaminophen 325 Mg Tablet 325 Mg PO Silvadene (Silver Sulfadiazine) 20 Gm Cream..g. 1 Suzanna TP DAILY Levemir Flextouch (Insulin Detemir) 100 Unit/1 Ml Insuln.pen 100 Unit SQ Levothyroxine Sodium 50 Mcg Tablet 1 Tab PO DAILY Acidophilus (Lactobacillus Acidophilus) 1 Each Capsule 1 Each PO Lasix (Furosemide) 20 Mg Tablet 1 Tab PO DAILY Protonix (Pantoprazole Sodium) 40 Mg Tablet.dr 1 Tab PO DAILY Peridex (Chlorhexidine Gluconate) 15 Ml Mouthwash 15 Ml Acetaminophen-Cod #3 Tablet (Acetaminophen/Codeine Phosphate) 1 Each Tablet 1 Tab PO BID PRN Lyrica (Pregabalin) 50 Mg Capsule 50 Mg PO BID Aspir 81 (Aspirin) 81 Mg Tablet. 81 Mg PO DAILY Tradjenta (Linagliptin) 5 Mg Tablet 5 Mg PO DAILY Clopidogrel (Clopidogrel Bisulfate) 75 Mg Tablet 75 Mg PO DAILY Amitriptyline Hcl 25 Mg Tablet 25 Mg PO HS Anastrozole 1 Mg Tablet 1 Mg PO DAILY Vitals/I & O Vital Sign - Last 24 Hours 08/11/16 08/11/16 08/11/16 08/11/16 15:20 19:42 20:00 22:05 Temp 97.3 97.6 97.3 97.6 Pulse 77 82 Resp 18 18 B/P 178/72 191/81 191/81 Pulse Ox 98 96 O2 Delivery Nasal Cannula Room Air Nasal Cannula O2 Flow Rate 1.0 1.0 08/11/16 08/11/16 08/12/16 08/12/16 22:06 22:51 02:15 07:27 Temp 99.0 99.0 98.1 99.0 99.0 98.1 Pulse 82 83 72 Resp 20 18 18 B/P 191/81 128/57 125/56 144/60 Pulse Ox 93 93 95 O2 Delivery Nasal Cannula Nasal Cannula Nasal Cannula O2 Flow Rate 1.0 1.0 1.0 08/12/16 08/12/16 08/12/16 08/12/16 08:00 08:52 08:55 11:55 Temp 98.2 98.2 Pulse 72 72 70 Resp 18 B/P 144/60 144/60 176/77 Pulse Ox 95 O2 Delivery Nasal Cannula Nasal Cannula O2 Flow Rate 1.0 1.0 Intake and Output 08/11/16 08/11/16 08/12/16 15:00 23:00 07:00 Intake Total 350 ml Output Total 300 ml 400 ml Balance 50 ml -400 ml DENNIS MARTIN APRN Aug 12, 2016 12:57
== END 2016-08-12 14:40 | disposition home or self-care (01) | DRG 871 ==
LOC: ER 19:11 → 6 SOUTH 21:10 → 1 WEST ICU 08-04 12:45 → 2 NORTH 08-09 13:56
PROVIDERS: ADMIT Internal Medicine; ATTEND Internal Medicine
PROC: 30233N1 Transfusion of Nonautologous Red Blood Cells into Peripheral Vein, Percutaneous Approach (ICD-10-PCS; 2016-08-07)
PROC: 4A023N7 Measurement of Cardiac Sampling and Pressure, Left Heart, Percutaneous Approach (ICD-10-PCS; principal; 2016-08-08)
PROC: B2111ZZ Fluoroscopy of Multiple Coronary Arteries using Low Osmolar Contrast (ICD-10-PCS; 2016-08-08)
PROC: B2151ZZ Fluoroscopy of Left Heart using Low Osmolar Contrast (ICD-10-PCS; 2016-08-08)
DX: A41.9 Sepsis, unspecified organism (principal); I21.4 Non-ST elevation (NSTEMI) myocardial infarction; I50.23 Acute on chronic systolic (congestive) heart failure; N17.0 Acute kidney failure with tubular necrosis; A04.7 Enterocolitis due to Clostridium difficile; E44.1 Mild protein-calorie malnutrition; I13.0 Hypertensive heart and chronic kidney disease with heart failure and stage 1 through stage 4 chronic kidney disease, or unspecified chronic kidney disease; N39.0 Urinary tract infection, site not specified; D63.8 Anemia in other chronic diseases classified elsewhere; E03.9 Hypothyroidism, unspecified; E11.22 Type 2 diabetes mellitus with diabetic chronic kidney disease; E11.42 Type 2 diabetes mellitus with diabetic polyneuropathy; E11.51 Type 2 diabetes mellitus with diabetic peripheral angiopathy without gangrene; E11.65 Type 2 diabetes mellitus with hyperglycemia; Z68.29 Body mass index [BMI] 29.0-29.9, adult; E78.5 Hyperlipidemia, unspecified; H40.9 Unspecified glaucoma; I25.10 Atherosclerotic heart disease of native coronary artery without angina pectoris; I25.5 Ischemic cardiomyopathy; K21.9 Gastro-esophageal reflux disease without esophagitis; M81.0 Age-related osteoporosis without current pathological fracture; N18.9 Chronic kidney disease, unspecified; R65.20 Severe sepsis without septic shock; S91.302A Unspecified open wound, left foot, initial encounter; Z79.02 Long term (current) use of antithrombotics/antiplatelets; Z79.4 Long term (current) use of insulin; Z82.49 Family history of ischemic heart disease and other diseases of the circulatory system; Z83.3 Family history of diabetes mellitus; Z85.3 Personal history of malignant neoplasm of breast; Z89.429 Acquired absence of other toe(s), unspecified side; Z90.12 Acquired absence of left breast and nipple
CPT/HCPCS: 36415; 36600; 71010; 76770; 80048; 80053; 80061; 80069; 81001; 82553; 82607; 82728; 82805; 82947; 83540; 83550; 83605; 83735; 84132; 84443; 84484; 85007; 85027; 85045; 85520; 86850; 86900; 86901; 86920; 87040; 87071; 87075; 87086; 87205; 87324; 87641; 87804; 93005; 93306; 93458; 94620; 94640; 96361; 96365; C1769; C1892; J0360; J0690; J0881; J1450; J1815; J1940; J2250; J2543; J3010; J3370; J3475; J3480; J3490; J7030; J7040; J7060; P9016; Q9967; 97110; 97116; 97530; 97535; 97605; 99285-25

== ENCOUNTER → 2016-09-23 | Day surgery (SDC) | payer MEDICARE, OTHER ==
[~2016-09-23] VITALS: Ht 162.6 cm; Wt 63.5 kg
[~2016-09-23] MED LIST changes: +ACET-704 PO; +ACET325T21 PO; +AMLO5TAB2 PO; +ANAS1TAB3 PO; +ATOR10TA60 PO; +ATOR20TA58 PO; +BUME1TAB PO; +BUPIVACAINE 0.25% 50 ML VIAL. ONE; +CARV6.252 PO; +CEFAZOLIN 2GM PREMIX 50 ML IV PRN; +CEFE1VIA5 IJ; +CEPH500T PO; +CHLO15MO2; +DOCU100T5 PO; +FAMO40TA57 PO; +FENTANYL PF 100 MCG/2 ML VIAL. IV PRN; +FENTANYL PF 100 MCG/2 ML VIAL. ONE; +FERR325C PO; +FURO-69 PO; +HYDROMORPHONE 2 MG/ML VIAL. IV PRN; +INSU100I27 SQ; +ISOS30TA4 PO; +IV RINGERS,LACTATED 1000ML 1,000 ML IV SCH; +LACT1CAP2 PO; +LEVO50TA PO; +LEVO50TA5 PO; +LIDOCAINE 1% 1 ML SYRINGE. ID PRN; +LIDOCAINE 1% 20 ML VIAL. ONE; +LIDOCAINE 1% PF 48 ML, SODIUM BICARBONATE VIAL 12 MEQ in TOTAL VOLUME SYRINGE 60 ML ID ONE; +LINE600T PO; +LISI40TA PO; +METF500T4 PO; +METO2.5T PO; +METO25TA4 PO; +MORPHINE SULFATE 2 MG/ML DISP.SYRIN. IV PRN; +MULT-671 PO; +MUPI15CR TP; +NITR0.4T SL; +ONDANSETRON PF 4 MG/2 ML VIAL. IV PRN; +ONDANSETRON PF 4 MG/2 ML VIAL. ONE; +PANT40TA3 PO; +POTA20TA4 PO; +PROCHLORPERAZINE 10 MG/2 ML VIAL. IV PRN; +PROPOFOL 20 ML IV ONE; +SILV20CR4 TP; +SURGICEL FIBRILLAR 1X2 EACH. ONE; +Vancomycin Hcl PO
[2016-09-23 09:58] LABS: BASO % 0 % (0-3); EOS % 1 % (0-3); HEMATOCRIT 29.6 % (36.0-47.0); LYMPH # 1.1 x10^3/uL (1.0-4.8); LYMPH % 12 % (24-48); MEAN CORPUSCULAR HEMOGLOBIN 27 pg (25-35); MEAN CORPUSCULAR HGB CONC 34 g/dL (31-37); MEAN CORPUSCULAR VOLUME 80 fL (79-100); MONO % 6 % (0-9); NEUT % 81 % (31-73); PLATELET COUNT 257 x10^3/uL (140-400); RED BLOOD COUNT 3.72 x10^6/uL (3.50-5.40); RED CELL DISTRIBUTION WIDTH 15.3 % (11.5-14.5); WHITE BLOOD COUNT 9.7 x10^3/uL (4.0-11.0)
[2016-09-23 10:12] LABS: CALCIUM 9.4 mg/dL (8.5-10.1); CREATININE 1.1 mg/dL (0.6-1.0); GFR 47.3; POTASSIUM 3.9 mmol/L (3.5-5.1)
[2016-09-23 10:26] LABS: INR 1.1 (0.8-1.1); PROTHROMBIN TIME PATIENT 13.8 SEC (11.7-14.0)
--- NOTE | 2016-09-23 13:50 | DISCH ---
DISCHARGE WITH HOME HEALTH DISCHARGE INFORMATION: Condition on Discharge: Stable HOME HEALTH: Face to Face: I certify this patient is under my care and that I, or a nurse practitioner or physician's surgeon assistant working with me, had a face to face encounter that meets the physician face to face encounter requirements with this patient on [Date]. Medical Condition(s): Other Nursing Home For: Wound Vac FOLLOW-UP: Follow up with: Dr sheehan at [facility] Follow Up With: Puja Musa [facility] 1 week 1030am on CERTIFICATION STATEMENT: Certification Statement: Certification Statement: Based on the above finding, I certify that this patient is confined to the home and needs intermittent shelter care, physical therapy and/or speech therapy, or continues to need occupational therapy.~ This patient is under my care, and I have initiated the establishment of the plan of care.~ This patient will be followed by myself or a community physician who will periodically review the plan of care. MORGAN SHEEHAN MD Sep 23, 2016 13:50
--- NOTE | 2016-09-23 13:53 | PDOC ---
VASCULAR BRIEF OPERATIVE NOTE Date: Sep 23, 2016 Pre-Op Diagnosis exposed joint space 4th M-P joint right foot Post-Op Diagnosis same Procedure Performed open 3,4th ray amp left foot Surgeon Teddy Anesthesia Type: MAC, Local Blood Loss min MORGAN ELIAS MD Sep 23, 2016 13:53
[2016-09-23 14:18] VITALS: BP 187/81
--- NOTE | 2016-09-23 15:04 | OP ---
DATE OF SURGERY: 09/23/2016 PREOPERATIVE DIAGNOSIS: Exposed fourth metatarsophalangeal joint. 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 Open left fifth toe amputation wound. POSTOPERATIVE DIAGNOSIS: Exposed fourth metatarsophalangeal joint. 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 Open left fifth toe amputation wound. PROCEDURE PERFORMED: Ray amputation of the third and fourth toes. cultures. INDICATIONS: This is an 86-year-old female with severe peripheral vascular disease, had a previous fifth toe amputation and she has a chronic wound at the base of that wound. She has exposed metatarsophalangeal joint of the fourth toe and severe arthritic deformity, recommendation was for third and fourth toe ray amputation, reapplication of wound VAC therapy and bone cultures. DESCRIPTION OF PROCEDURE: The patient was given intravenous sedation. Preoperative antibiotics had been administered. She was prepped and draped in sterile fashion. 1% Xylocaine was utilized as a digit block. An elliptical incision was placed at the digit at the base of the third and fourth toes. Soft tissues were divided sharply. Hemostasis was achieved with electrocautery. There was excellent bleeding. The metatarsophalangeal joint was entered and the digits were amputated. Rongeur was utilized to remove additional proximal bony spicules. Segment of bone was sent for culture. Hemostasis achieved with electrocautery. The wound was dressed with Silvercel and AG, moistened and covered with Xeroform gauze, 4 x 4s, and a Kerlix wrap. The patient tolerated procedure well, moved to recovery in satisfactory stable condition. MORGAN ELIAS MD DR: HELENA/liang JOB#: [id number] / [id number]
--- NOTE | 2016-09-23 15:09 | OP ---
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 PROCEDURE PERFORMED: Open third and fourth toe ray amputation, debridement of residual left foot wound. Bone culture. INDICATION: An 86-year-old female who underwent an open fifth toe amputation in July of this year. She had a previous femoral, dorsalis pedis bypass graft, which was occluded. [facility] where she was noted to have an open wound penetrating down to the fourth metatarsophalangeal joint. She already had the first and second toes partially removed and with a severe deformity of the third toe was also subluxed at the metatarsophalangeal joint was recommended to undergo third and fourth toe ray amputation with a wound VAC placement. The residual fifth toe wound had improved significantly. There is granulation tissue in about 50-60% of the wound. The plantar surface wound still had some nonviable fat. DESCRIPTION: The patient was given intravenous sedation, prepped and draped in a sterile fashion, 1% Xylocaine was utilized as a digital block adjacent to the second and third metatarsals. Elliptical incision was then placed. Soft tissues were divided with electrocautery, metatarsophalangeal joint was entered and the digits were removed. Rongeur was utilized to remove more proximal metatarsal and a bone culture of this bone was obtained. This bone was surprisingly soft, which may indicate underlying chronic osteomyelitis. Hemostasis achieved with electrocautery. Because of the significant wound bleeding, the wound VAC was not reapplied, a dressing was applied using Silvercel dressing covered with Vaseline gauze, 4 x 4 and a Kerlix wrap. We will replace the wound VAC for chronic wound care beginning in a.m. Cultures were obtained. The patient will continue her previous medications. Follow up in the [facility] next week. MORGAN ELIAS MD DR: HELENA/liang JOB#: [id number] / [id number]
== END | disposition home or self-care (01) ==
LOC: SURG 08:45
DX: M19.072 Primary osteoarthritis, left ankle and foot (principal); I73.9 Peripheral vascular disease, unspecified; I25.10 Atherosclerotic heart disease of native coronary artery without angina pectoris; I10 Essential (primary) hypertension; F41.9 Anxiety disorder, unspecified; F32.9 Major depressive disorder, single episode, unspecified; E03.9 Hypothyroidism, unspecified; Z89.422 Acquired absence of other left toe(s); Z90.49 Acquired absence of other specified parts of digestive tract; Z79.01 Long term (current) use of anticoagulants
CPT/HCPCS: 28820; 36415; 80048; 82947; 85027; 85610; 85730; 87071; 87075; 87205; J0690; J2405; J2704; J3010; J3490

== ENCOUNTER → 2018-03-02 | Outpatient (CLI) | payer MEDICARE, OTHER ==
[2018-02-19 12:01] VITALS: BP 215/88
[~2018-03-02] MED LIST changes: +AMIT50TA PO; +ASCO500C9 PO; +ASPI-612 PO; +B12/1TAB3 PO; -BUPIVACAINE 0.25% 50 ML VIAL. ONE; +CALC-98 PO; +CARB15DR2 OP; -CARB15DR98 OP; -CEFAZOLIN 2GM PREMIX 50 ML IV PRN; +CLIN300C8 PO; -CLIN300C86 PO; +DOCU100C28 PO; -DOCU100C5 PO; +FAMO20TA5 PO; -FENO145T2 PO; +FENO145T30 PO; -FENTANYL PF 100 MCG/2 ML VIAL. IV PRN; -FENTANYL PF 100 MCG/2 ML VIAL. ONE; -FERR-26 PO; +FERR325T14 PO; +FOLI1TAB16 PO; +FURO80TA3 PO; +HYDR-2762 PO; -HYDROMORPHONE 2 MG/ML VIAL. IV PRN; +IBUP-1027 PO; +INSU100C SQ; +INSU100I32 SQ; +IPRA3AMP29 NEB; -IV RINGERS,LACTATED 1000ML 1,000 ML IV SCH; -LIDOCAINE 1% 1 ML SYRINGE. ID PRN; -LIDOCAINE 1% 20 ML VIAL. ONE; -LIDOCAINE 1% PF 48 ML, SODIUM BICARBONATE VIAL 12 MEQ in TOTAL VOLUME SYRINGE 60 ML ID ONE; -LINA5TAB PO; +LINA5TAB4 PO; +LISI-130 PO; -LISI40TA PO; +LOSA100T6 PO; -METF500T4 PO; +METF500T5 PO; +METO-239 PO; -MORPHINE SULFATE 2 MG/ML DISP.SYRIN. IV PRN; +ONDA4TAB11 PO; -ONDANSETRON PF 4 MG/2 ML VIAL. IV PRN; -ONDANSETRON PF 4 MG/2 ML VIAL. ONE; +POLY119P19 PO; +POLY17PO29 PO; +POTA10TA12 PO; -PROCHLORPERAZINE 10 MG/2 ML VIAL. IV PRN; -PROPOFOL 20 ML IV ONE; +SENN1TAB21 PO; +SILV20CR14 TP; -SILV20CR4 TP; +SULF-143 PO; -SURGICEL FIBRILLAR 1X2 EACH. ONE; +TAMS0.4C97 PO; +WARF2.5T83 PO; +WARF3TAB50 PO; +[UNRECOGNIZED DRUG - CODE] PO
--- NOTE | 2018-03-02 15:27 | RAD ---
CT HEAD WITHOUT CONTRAST 03/02/2018 3:03 PM Indication: Follow-up traumatic subarachnoid hemorrhage. Comparison: CT head without contrast February 19, 2018 Procedure: Multidetector CT imaging of the head was performed without the administration of contrast. Findings: Interval significant decrease in visualized subarachnoid hemorrhage in the bilateral frontal regions. No new hemorrhage is identified. No acute mass effect or midline shift. The ventricles and basilar cisterns have a stable configuration. No new extra-axial hemorrhage or other abnormal extra-axial fluid collection is identified. Right frontal scalp hematoma has decreased as well. No acute osseous changes are identified in the interim. IMPRESSION: Decreasing bifrontal subarachnoid hemorrhage. Otherwise stable exam. CT DOSING PQRS STATEMENT: One or more of the following individualized dose reduction techniques were utilized for this examination: 1. Automated exposure control 2. Adjustment of the mA and/or kV according to patient size 3. Use of iterative reconstruction technique Electronically signed by: Andre Gil MD (03/02/2018 3:24 PM) [id number]
== END | disposition home or self-care (01) ==
LOC: CT 14:49
PROVIDERS: ATTEND Neurological Surgery
DX: S06.6X9D Traumatic subarachnoid hemorrhage with loss of consciousness of unspecified duration, subsequent encounter (principal); S00.03XD Contusion of scalp, subsequent encounter; I13.0 Hypertensive heart and chronic kidney disease with heart failure and stage 1 through stage 4 chronic kidney disease, or unspecified chronic kidney disease; E11.22 Type 2 diabetes mellitus with diabetic chronic kidney disease; I50.9 Heart failure, unspecified; N18.3 Chronic kidney disease, stage 3 (moderate); D63.8 Anemia in other chronic diseases classified elsewhere; K21.9 Gastro-esophageal reflux disease without esophagitis; Z90.49 Acquired absence of other specified parts of digestive tract; Z89.421 Acquired absence of other right toe(s); Z89.422 Acquired absence of other left toe(s); Z89.412 Acquired absence of left great toe; Z68.31 Body mass index [BMI] 31.0-31.9, adult; Z85.3 Personal history of malignant neoplasm of breast; Z87.891 Personal history of nicotine dependence; Z79.4 Long term (current) use of insulin; Z82.49 Family history of ischemic heart disease and other diseases of the circulatory system; Z83.3 Family history of diabetes mellitus; X58.XXXD Exposure to other specified factors, subsequent encounter
CPT/HCPCS: 70450

== ENCOUNTER → 2018-08-01 | Outpatient (CLI) | payer MEDICARE, OTHER ==
[~2018-08-01] MED LIST changes: +AMLO5TAB10 PO; -AMLO5TAB2 PO; -ANAS1TAB3 PO; +ANAS1TAB47 PO; +BUTA1CAP31 PO; +CARV12.511 PO; +CARV6.2511 PO; -CARV6.252 PO; +CIPR250T PO; +COLC0.6T34 PO; +FURO-68 PO; -HYDR-2762 PO; +HYDR-2765 PO; +LACT1CAP6 PO; +LIDO700A39 TP; +LINA5TAB PO; -LINA5TAB4 PO; +LOPE2CAP88 PO; +LOSA100T14 PO; -LOSA100T6 PO; +MAGN400T3 PO; +MEROPENEM 1 GM in IV NORMAL SALINE 100ML 100 ML IV ONE; +METF500T16 PO; -METF500T5 PO; +NITR0.4T22 SL; -SENN1TAB21 PO; +SENN1TAB62 PO; +TAMS0.4C2 PO; +TRAM50TA PO
[2018-08-01 10:34] VITALS: BP 160/67
--- NOTE | 2018-08-01 11:00 | NUR ---
PICC DRESSING HAS BLOOD FROM INSERTION AND STARTING TO FALL OFF. JERRI BEAR RN TOOK OVER FOR MY LUNCH AND IS TO FLUSH PICC AFTER INFUSION AND CHANGE PICC DRESSING.
== END | disposition home or self-care (01) ==
LOC: OPS 09:55
PROVIDERS: ATTEND Urology
DX: N30.20 Other chronic cystitis without hematuria (principal); I13.0 Hypertensive heart and chronic kidney disease with heart failure and stage 1 through stage 4 chronic kidney disease, or unspecified chronic kidney disease; E11.22 Type 2 diabetes mellitus with diabetic chronic kidney disease; I50.42 Chronic combined systolic (congestive) and diastolic (congestive) heart failure; N18.4 Chronic kidney disease, stage 4 (severe); E11.51 Type 2 diabetes mellitus with diabetic peripheral angiopathy without gangrene; E11.42 Type 2 diabetes mellitus with diabetic polyneuropathy; E11.39 Type 2 diabetes mellitus with other diabetic ophthalmic complication; H42 Glaucoma in diseases classified elsewhere; I25.10 Atherosclerotic heart disease of native coronary artery without angina pectoris; K21.9 Gastro-esophageal reflux disease without esophagitis; E11.36 Type 2 diabetes mellitus with diabetic cataract; I25.5 Ischemic cardiomyopathy; I25.2 Old myocardial infarction; E78.5 Hyperlipidemia, unspecified; E03.9 Hypothyroidism, unspecified; G89.29 Other chronic pain; E78.00 Pure hypercholesterolemia, unspecified; M19.072 Primary osteoarthritis, left ankle and foot; M81.0 Age-related osteoporosis without current pathological fracture; F03.90 Unspecified dementia, unspecified severity, without behavioral disturbance, psychotic disturbance, mood disturbance, and anxiety; F32.9 Major depressive disorder, single episode, unspecified; E43 Unspecified severe protein-calorie malnutrition; F41.8 Other specified anxiety disorders; Z85.3 Personal history of malignant neoplasm of breast; Z89.432 Acquired absence of left foot; Z89.421 Acquired absence of other right toe(s); Z79.4 Long term (current) use of insulin; Z96.642 Presence of left artificial hip joint; Z79.01 Long term (current) use of anticoagulants; Z79.899 Other long term (current) drug therapy; Z79.82 Long term (current) use of aspirin; Z79.1 Long term (current) use of non-steroidal anti-inflammatories (NSAID); Z79.02 Long term (current) use of antithrombotics/antiplatelets; Z90.49 Acquired absence of other specified parts of digestive tract; Z87.891 Personal history of nicotine dependence
CPT/HCPCS: 96365; G0463; J2185

== ENCOUNTER → 2018-08-01 | Outpatient (CLI) | payer MEDICARE, OTHER ==
[~2018-08-01] VITALS: Ht 162.6 cm; Wt 64.4 kg
[~2018-08-01] MED LIST changes: +BUME0.5T2 PO; -BUME1TAB PO; +BUME1TAB3 PO; +CEFP200T PO; +DICL100G18 TP; +LEVO100T5 PO; +LIDO700A21 TP; -LIDO700A39 TP; +LIDOCAINE WITH 8.4% SOD BICARB 3 ML DISP.SYRIN. ONE; +MERO500V15 IV; -MEROPENEM 1 GM in IV NORMAL SALINE 100ML 100 ML IV ONE; -PANT40TA3 PO; +PANT40TA77 PO
[2018-08-01 08:50] VITALS: BP 169/75
--- NOTE | 2018-08-01 13:27 | RAD ---
Procedure: Upper extremity PICC line placement Clinical Indication: 87-year-old requiring central venous access Sedation: Local anesthesia only was provided Antibiotics: None Fluoro Time: 0.6 minutes. Images: 1 Contrast: None Sterility: All elements of maximal sterile barrier technique including the use of a cap, mask, sterile gown, sterile gloves, large sterile sheet, appropriate hand hygiene, and 2% chlorhexidine for cutaneous antisepsis (or acceptable alternative antiseptic per current guidelines) were followed for this procedure. Consent: The procedure was explained in its entirety to the patient or the patients designated sales representative malt liquors by a member of the treatment team, including a discussion of the risks, benefits and commonly accepted alternatives to the procedure, as well as the expected consequences of no therapy whatsoever. Discussion of the risks included, but was not limited to, those that are most frequent and those that are rare but possibly severe or life-threatening, as well as the possibility of unforeseen complications. Technique and Findings: Following informed consent, the patient was prepped and draped in the usual sterile fashion. Ultrasound interrogation of the right arm revealed patency and compressibility of the brachial vein. A hard copy ultrasound image was recorded. 1% Lidocaine was used to achieve local anesthesia and a 21-gauge micropuncture needle was used to gain access to the targeted vein. The needle was exchanged over wire for a 5 [place] peel-away sheath which was used to deploy a PICC line under fluoroscopic guidance such that the distal tip resided at the cavoatrial junction. The catheter flushed and aspirated with ease and was sutured to the skin. Complications: No immediate Impression: 1. Ultrasound guided PICC line placement as described.
== END | disposition home or self-care (01) ==
LOC: INTRAD 08:07
PROVIDERS: ATTEND Urology
DX: Z45.2 Encounter for adjustment and management of vascular access device (principal); N39.0 Urinary tract infection, site not specified; Z79.01 Long term (current) use of anticoagulants; Z79.899 Other long term (current) drug therapy
CPT/HCPCS: 36569; 76937; 77001; C1751; C1892

== ENCOUNTER 2018-08-29 12:51 | Inpatient (IN) | payer MEDICARE, OTHER ==
[~2018-08-29] VITALS: Ht 160 cm; Wt 63.0 kg
[~2018-08-29 12:51] MED LIST changes: -BUME0.5T2 PO; -CEFP200T PO; -DICL100G18 TP; -LEVO100T5 PO; -LIDO700A21 TP; +LIDO700A39 TP; -LIDOCAINE WITH 8.4% SOD BICARB 3 ML DISP.SYRIN. ONE; -MERO500V15 IV; +PANT40TA3 PO; -PANT40TA77 PO
[2018-08-29 14:30] VITALS: BP 130/57
[2018-08-29] MEDS ORDERED: C.DIFF MED SCREEN BY RX. MC ONE (15:15)
[2018-08-29] MEDS ORDERED: CEFP200T PO (15:16)
--- NOTE | 2018-08-29 15:34 | NUR ---
pt admitted direct to 550. pg sent to Dr. Mcdonough for orders
[2018-08-29] MEDS ORDERED: ACETAMINOPHEN/CODEINE 300/30MG TABLET. PO PRN (16:00)
[2018-08-29] MEDS ORDERED: DEXTROSE 50% 25 GM / 50ML DISP.SYRIN. IV PRN (16:00)
[2018-08-29] MEDS ORDERED: IV NORMAL SALINE 250ML 250 ML IV ONE (16:00)
[2018-08-29] MEDS ORDERED: NITROGLYCERIN SUBLINGUAL 0.4 MG BOTTLE OF 25. SL PRN (16:00)
--- NOTE | 2018-08-29 16:47 | EKG ---
[facility] [address] [place] [address] Test Date: 2018-08-29 Test Time: 16:32:27 Pat Name: CHRSI HO Department: Room: [facility] Gender: F Door Slinger: AT : 1930 Requested By: JAMES CORCORAN Order Number: [id number] Reading MD: Manuel Ellis MD Measurements Intervals [place] Rate: 65 P: 37 [place]: 204 QRS: 9 QRSD: 98 T: 31 QT: 420 QTc: 442 Interpretive Statements SINUS RHYTHM PVC'S Electronically Signed On 09-04-2018 10:27:04 EPIC TRAINER by Manuel Ellis MD
[2018-08-29 16:48] LABS: BASO % 0 % (0-3); EOS # 0.2 x10^3/uL (0.0-0.7); EOS % 3 % (0-3); HEMATOCRIT 29.3 % (36.0-47.0); HEMOGLOBIN 9.9 g/dL (12.0-15.5); LYMPH # 1.3 x10^3/uL (1.0-4.8); LYMPH % 18 % (24-48); MEAN CORPUSCULAR HEMOGLOBIN 28 pg (25-35); MEAN CORPUSCULAR HGB CONC 34 g/dL (31-37); MEAN CORPUSCULAR VOLUME 83 fL (79-100); MONO # 0.4 x10^3/uL (0.0-1.1); MONO % 6 % (0-9); NEUT % 72 % (31-73); PLATELET COUNT 147 x10^3/uL (140-400); RED BLOOD COUNT 3.53 x10^6/uL (3.50-5.40); RED CELL DISTRIBUTION WIDTH 14.1 % (11.5-14.5); WHITE BLOOD COUNT 6.9 x10^3/uL (4.0-11.0)
[2018-08-29] MEDS: INSULIN LISPRO 300 UNITS/3 ML INSULN.PEN. SQ SCH (17:00)
[2018-08-29 17:01] LABS: ALBUMIN 3.4 g/dL (3.4-5.0); ALBUMIN/GLOBULIN RATIO 0.8 (1.0-1.7); CALCIUM 8.6 mg/dL (8.5-10.1); CREATININE 2.8 mg/dL (0.6-1.0); POTASSIUM 4.7 mmol/L (3.5-5.1); TOTAL BILIRUBIN 0.2 mg/dL (0.2-1.0); TOTAL PROTEIN 7.7 g/dL (6.4-8.2)
[2018-08-29] MEDS: LIDOCAINE (700MG/PATCH) PATCH. TD SCH (17:27)
[2018-08-29] MEDS: CARVEDILOL 12.5 MG TABLET. PO SCH (17:28)
[2018-08-29 17:52] LABS: BILIRUBIN,URINE NEGATIVE (NEG); CLARITY,URINE CLEAR; COLOR,URINE YELLOW; NITRITE,URINE NEGATIVE (NEG); PROTEIN,URINE NEGATIVE (NEG-TRACE); UROBILINOGEN,URINE 0.2 mg/dL (0.2 mg/dL)
[2018-08-29 17:59] LABS: BACTERIA,URINE 0 /HPF (0-FEW); HYALINE CASTS, URINE FEW /HPF; RBC,URINE RARE /HPF (0-2); SQUAMOUS EPITHELIAL CELL,UR FEW /LPF; WBC,URINE OCC /HPF (0-4)
[2018-08-29] MEDS: IV NORMAL SALINE 1000ML BAG 1,000 ML IV SCH (18:12)
[2018-08-29 19:00] VITALS: BP 119/51
[2018-08-29] MEDS: ATORVASTATIN CALCIUM 20 MG TABLET PO SCH (20:11)
[2018-08-29] MEDS: PREGABALIN 50 MG CAPSULE PO SCH (20:11)
[2018-08-29] MEDS: PATCH REMOVAL. MC SCH (20:18)
[2018-08-29] MEDS: IPRATRPIUM/ALBUTEROL 0.5/2.5MG 3 ML NEBU. NEB SCH (20:58)
[2018-08-29] MEDS ORDERED: FAMOTIDINE 20 MG TABLET. PO PRN (21:00)
[2018-08-29] MEDS ORDERED: INSULIN GLARGINE 300 UNITS/3 ML INSULN.PEN. SQ SCH ×2 (21:00)
[2018-08-29 22:48] VITALS: BP 118/49
--- NOTE | 2018-08-29 23:10 | RAD ---
PROCEDURE: PORTABLE CHEST 1V CLINICAL INDICATION: INPATIENT. CHF. HX HTN, DIABETES, CAD, LEFT MASECTOMY, PRIOR XRAY
COMPARISON: 08/10/2018 FINDINGS: No pneumothorax identified. Cardiac and mediastinal contours unremarkable. No pulmonary consolidation or acute airspace disease. No acute osseous abnormalities identified. IMPRESSION: No pulmonary consolidation or acute airspace disease. Electronically signed by: Seth Stevens DO (08/29/2018 11:08 PM) [facility]
[2018-08-30 02:44] VITALS: BP 137/55
[2018-08-30 05:00] LABS: CALCIUM 8.8 mg/dL (8.5-10.1); CREATININE 2.2 mg/dL (0.6-1.0); GFR 21.2; POTASSIUM 4.2 mmol/L (3.5-5.1)
[2018-08-30] MEDS: LEVOTHYROXINE 50 MCG TABLET PO SCH (05:25)
[2018-08-30] MEDS: IV NORMAL SALINE 1000ML BAG 1,000 ML IV SCH ×2 (05:39→21:32)
--- NOTE | 2018-08-30 05:50 | NUR ---
Pt blood sugar this morning was 43, gave 12.5 gm of D50, sugar went up to 217 after five minutes, rechecked again after 15 min, bs 184, notified Dr. Stevens and received order to hold morning insulin until further 's order. Will continue to monitor pt.
[2018-08-30 07:00] VITALS: BP 107/49
[2018-08-30] MEDS: INSULIN LISPRO 300 UNITS/3 ML INSULN.PEN. SQ SCH ×3 (07:17→17:00)
--- NOTE | 2018-08-30 07:56 | RAD ---
RENAL COMPLETE BILATERAL History: Elevated labs Comparison: None. Findings: Multiple sonographic images of the kidneys and retroperitoneal structures are submitted. Right kidney measured 10.2 x 4.5 x 4 cm. Left kidney measured 11.6 x 3.9 x 4.6 cm. There is no hydronephrosis of either kidney. Visualized abdominal aortic caliber is within normal limits in greatest dimension 2 cm proximally. Distal abdominal aorta is obscured by bowel gas. There is segmental visualization of the proximal inferior vena cava. Urinary bladder morphology is within normal limits, ureteral jets seen bilaterally in the urinary bladder lumen. Impression: 1. No significant abnormality is demonstrated. Electronically signed by: Feliciano Vázquez MD (08/30/2018 7:53 AM) [facility]
[2018-08-30] MEDS: CARVEDILOL 12.5 MG TABLET. PO SCH ×2 (08:00→17:52)
[2018-08-30] MEDS: LIDOCAINE (700MG/PATCH) PATCH. TD SCH (08:12)
[2018-08-30] MEDS: ISOSORBIDE MONONITRATE ER 30 MG TAB.ER.24H PO SCH (08:17)
[2018-08-30] MEDS: DOCUSATE SODIUM 100 MG CAPSULE. PO SCH (08:17)
[2018-08-30] MEDS: PREGABALIN 50 MG CAPSULE PO SCH ×2 (08:19→21:28)
[2018-08-30] MEDS: IPRATRPIUM/ALBUTEROL 0.5/2.5MG 3 ML NEBU. NEB SCH ×3 (08:29→19:47)
[2018-08-30] MEDS: CLOPIDOGREL BISULFATE 75 MG TABLET PO SCH (08:43)
[2018-08-30] MEDS ORDERED: LOSARTAN POTASSIUM 50 MG TABLET. PO SCH (09:00)
[2018-08-30 11:01] VITALS: BP 119/52
--- NOTE | 2018-08-30 11:06 | HP ---
ADMIT DATE: 08/29/2018 LOCATION: [facility]. REASON FOR ADMISSION TO THE HOSPITAL: Acute renal insufficiency on chronic renal failure. HISTORY OF PRESENT ILLNESS: The patient is an 88-year-old female. The patient has chronic systolic heart failure, chronic kidney disease, ejection fraction 20% and hard time balancing her heart failure with kidney problems. She takes Bumex 1 mg twice a day, Lasix 20 mg twice a day. She is being followed by home health. They did labs yesterday, her BUN was 150, creatinine was 2.5. She is usually around 60 BUN and creatinine around less than 2. The patient was admitted to the hospital to correct the acute kidney insufficiency with IV fluids. Her urine was negative, and a chest x-ray was negative. An ultrasound of the kidneys was negative for any hydronephrosis. PAST MEDICAL HISTORY: As mentioned, the patient has a history of chronic kidney disease stage 3 to stage 4. BUN around 60, creatinine around 2. She also has coronary artery disease, 3-vessel, medical management. She also has congestive heart failure, chronic, systolic, ejection fraction 20-30%. She has hypertension, hyperlipidemia, breast cancer, hypothyroidism, anxiety, depression, hyperlipidemia, recurrent UTIs. PAST SURGICAL HISTORY: Left mastectomy, hip replacement from fracture. Cardiac cath shows 3-vessel disease, only medical management. Recurrent UTIs. ALLERGIES: No known drug allergies. MEDICATIONS AT HOME: She is on calcium with vitamin D, Colace 100 mg daily, colchicine 0.6 daily, Fioricet p.r.n., nitro p.r.n., DuoNeb 4 times daily, Lyrica 50 mg twice a day, Plavix 75 mg daily, Lantus 35 units at bedtime, NovoLog 10-15 units 3 times daily, Synthroid 50 mcg daily, Tradjenta 5 mg daily, Bumex 1 mg twice a day, Lasix 40 mg twice a day, Coreg 12.5 twice a day, Pepcid 40 mg daily, amitriptyline 25 mg daily, Flector patch daily, losartan 100 mg daily, isosorbide mononitrate 30 mg daily. PERSONAL HISTORY: No history of smoking, alcohol, drug abuse. SOCIAL HISTORY: She lives at home with her daughter, wheelchair level of activity. REVIEW OF SYSTEMS: CARDIAC: No chest pain. GASTROINTESTINAL: No nausea, no vomiting. NEUROLOGICAL: No weakness. Rest of the 14-system was reviewed and negative. PHYSICAL EXAMINATION: GENERAL: The patient is not in any distress. VITAL SIGNS: Temperature 97, pulse 63, respirations 18, blood pressure 130/57, 95% on room air. HEENT: Head is atraumatic. Pupils equal. Oral cavity: Dentures. NECK: Supple. Thyroid not enlarged. JVD not elevated. CHEST: Left mastectomy. CARDIOVASCULAR: S1, S2. No murmurs. LUNGS: Clear to auscultation. No wheezing, few crackles at the bases. ABDOMEN: Soft, bowel sounds present, no mass palpable. EXTERNAL GENITALIA: No Simpson. RECTAL: Deferred. 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 On the right foot, she had a fifth toe amputation. She had a bypass to lower extremities, bilateral. No skin breakdown, no edema. LABORATORY DATA: Shows a white count of 7, hemoglobin 10, platelets 147. Electrolytes show sodium 144, potassium 4.2, chloride 108, bicarbonate 23, BUN 150, creatinine 2.2, glucose 114 at the time of admission. LFTs were normal. Urine was negative for nitrites and leukocytes. Chest x-ray was negative for infiltrates. Ultrasound of the kidneys negative for hydronephrosis. FINAL IMPRESSION: 1. Acute renal insufficiency. 2. Chronic kidney disease. The patient has stage 3-4. At baseline, BUN around 60, creatinine around less than 2. At the present time, her BUN 160, creatinine was 2.5. 3. Chronic systolic heart failure, ejection fraction 20-30%. 4. Coronary artery disease, 3-vessel disease, medical management. 5. Insulin-dependent diabetes. 6. Hypertension. 7. Hyperlipidemia. 8. Breast cancer, left mastectomy. 9. Peripheral vascular disease, history of previous toe amputations and bypass of lower extremities. 10. General decline. PLAN: At this time, the patient's condition has been deteriorating hard to balance heart failure as well as kidneys, and we will hold off on the Bumex and Lasix, hydrate with IV fluids, bolus 500 mL was given and 75 mL and monitor kidney function. Ultrasound of the kidneys was negative for hydronephrosis. Continue DVT prevention and see how the patient's condition improves. JAMES CORCORAN MD DR: ADRIANA/liang JOB#: [id number] / [id number]
[2018-08-30] MEDS ORDERED: LINAGLIPTIN 5 MG TABLET PO SCH (12:00)
[2018-08-30] MEDS: HEPARIN for SUB-Q USE 5,000 UNIT/ML VIAL. SQ SCH ×2 (12:40→21:00)
[2018-08-30 15:07] VITALS: BP 110/51
--- NOTE | 2018-08-30 15:38 | NUR ---
SS following for discharge planning. SS reviewed pt chart. Pt is from home with daughter, Fide, and was current with [facility]. Pt's RN reported that pt's family has started the process of transitioning pt to [facility] and pt is currently pending hospice services. SS contacted both pt's daughters and left a voicemail for return call for more information and also left a message for [facility] worker, Yasmin, , as well. SS will await return calls from family and [facility] and will proceed accordingly.
[2018-08-30 19:00] VITALS: BP 124/48
[2018-08-30] MEDS ORDERED: INSULIN GLARGINE 300 UNITS/3 ML INSULN.PEN. SQ SCH (21:00)
[2018-08-30] MEDS: PATCH REMOVAL. MC SCH (21:00)
[2018-08-30] MEDS: ATORVASTATIN CALCIUM 20 MG TABLET PO SCH (21:27)
[2018-08-30] MEDS ORDERED: LEVO100T5 PO (22:47)
[2018-08-30 22:49] VITALS: BP 129/50
[2018-08-31 02:46] VITALS: BP 142/60
[2018-08-31] MEDS: LEVOTHYROXINE 50 MCG TABLET PO SCH (05:48)
[2018-08-31] MEDS ORDERED: LEVOTHYROXINE 50 MCG TABLET PO SCH (06:00)
[2018-08-31 06:23] LABS: CALCIUM 8.5 mg/dL (8.5-10.1); CREATININE 1.7 mg/dL (0.6-1.0); GFR 28.5; POTASSIUM 4.8 mmol/L (3.5-5.1)
[2018-08-31 07:00] VITALS: BP 149/57
[2018-08-31] MEDS: IPRATRPIUM/ALBUTEROL 0.5/2.5MG 3 ML NEBU. NEB SCH (07:11)
[2018-08-31] MEDS: INSULIN LISPRO 300 UNITS/3 ML INSULN.PEN. SQ SCH (08:00)
[2018-08-31] MEDS: IV NORMAL SALINE 1000ML BAG 1,000 ML IV SCH (08:00)
[2018-08-31] MEDS: CARVEDILOL 12.5 MG TABLET. PO SCH (08:47)
[2018-08-31] MEDS: DOCUSATE SODIUM 100 MG CAPSULE. PO SCH (08:47)
[2018-08-31] MEDS: ISOSORBIDE MONONITRATE ER 30 MG TAB.ER.24H PO SCH (08:47)
[2018-08-31] MEDS: CLOPIDOGREL BISULFATE 75 MG TABLET PO SCH (08:48)
[2018-08-31] MEDS: LIDOCAINE (700MG/PATCH) PATCH. TD SCH (08:48)
[2018-08-31] MEDS: PREGABALIN 50 MG CAPSULE PO SCH (08:48)
[2018-08-31] MEDS: HEPARIN for SUB-Q USE 5,000 UNIT/ML VIAL. SQ SCH (09:00)
--- NOTE | 2018-08-31 10:07 | PDOC ---
PROGRESS NOTES Subjective Subjective feels better want to go home Objective Objective Vital Signs Date Time Temp Pulse Resp B/P (MAP) Pulse Ox O2 Delivery O2 Flow Rate FiO2 08/31/18 08:47 70 149/57 08/31/18 07:13 98 Room Air 08/31/18 07:00 98.6 18 98.6 Intake and Output 08/31/18 07:00 Intake Total 1840 ml Balance 1840 ml Intake Oral 1840 ml # Voids 4 Physical Exam Abdomen: Normal bowel sounds, Soft Heart: Regular rate, Normal S1, Normal S2 Extremities: No clubbing, No cyanosis General: Alert, Oriented X3 HEENT: Atraumatic Lungs: Clear to auscultation MUSCULOSKELETAL: No swelling Neck: Supple Neuro: Normal speech Psych/Mental Status: Mental status NL Skin: No breakdown Assessment Assessment FINAL IMPRESSION: 1. Acute renal insufficiency improving with iv fluids. 2. Chronic kidney disease. The patient has stage 3-4. At baseline, BUN around 60, creatinine around less than 2. At the present time, her BUN 160, creatinine was 2.5. 3. Chronic systolic heart failure, ejection fraction 20-30%. 4. Coronary artery disease, 3-vessel disease, medical management. 5. Insulin-dependent diabetes. 6. Hypertension. 7. Hyperlipidemia. 8. Breast cancer, left mastectomy. 9. Peripheral vascular disease, history of previous toe amputations and bypass of lower extremities. 10. General decline. PLAN: BUN 112, cr 1.6 improving with iv fluids. pt want to go home.d/c home later today stop bumex and lasix at home check labs monday by home health. At this time, the patient's condition has been deteriorating hard to balance heart failure as well as kidneys, and we will hold off on the Bumex and Lasix, hydrate with IV fluids, bolus 500 mL was given and 75 mL and monitor kidney function. Ultrasound of the kidneys was negative for hydronephrosis. Continue DVT prevention and see how the patient's condition improves. Comment Review of Relevant I have reviewed the following items kathleen (where applicable) has been applied. Labs Laboratory Tests Test 08/30/18 11:39 08/30/18 16:50 08/30/18 20:26 08/31/18 05:29 Glucose (Fingerstick) 228 mg/dL (70-99) 106 mg/dL (70-99) 181 mg/dL (70-99) Sodium Level 147 mmol/L (136-145) Potassium Level 4.8 mmol/L (3.5-5.1) Chloride Level 113 mmol/L (98-107) Carbon Dioxide Level 23 mmol/L (21-32) Anion Gap 11 (6-14) Blood Urea Nitrogen 114 mg/dL (7-20) Creatinine 1.7 mg/dL (0.6-1.0) Estimated GFR (Cockcroft-Gault) 28.5 Glucose Level 158 mg/dL (70-99) Calcium Level 8.5 mg/dL (8.5-10.1) Test 08/31/18 07:58 Glucose (Fingerstick) 133 mg/dL (70-99) Medications Current Medications Heparin Sodium (Porcine) (Heparin Sodium) 5,000 unit Q12HR SQ Last administered on 08/30/18at 12:40; Start 08/30/18 at 11:00 Insulin Glargine (Lantus) 20 units QHS SQ ; Start 08/30/18 at 21:00 Levothyroxine Sodium (Synthroid) 50 mcg WEEKLYAC PO Last administered on at 05:48; Start 08/31/18 at 06:00 Linagliptin (Tradjenta) 5 mg DAILYWLUN PO ; Start 08/30/18 at 12:00; Stop at 12:00; Status DC Vitals/I & O Vital Sign - Last 24 Hours 08/30/18 08/30/18 08/30/18 08/30/18 11:01 13:47 15:07 17:52 Temp 98.4 97.9 98.4 97.9 Pulse 69 69 69 Resp 18 18 B/P (MAP) 119/52 (74) 110/51 (70) 110/51 Pulse Ox 96 97 97 O2 Delivery Room Air Room Air Room Air 08/30/18 08/30/18 08/30/18 08/30/18 19:00 19:47 20:00 22:49 Temp 98.2 97.8 98.2 97.8 Pulse 65 68 Resp 15 17 B/P (MAP) 124/48 (73) 129/50 (76) Pulse Ox 97 97 95 O2 Delivery Room Air Room Air Room Air Room Air 308/31/18 08/31/18 08/31/18 02:46 07:00 07:13 08:47 Temp 98.8 98.6 98.8 98.6 Pulse 58 70 70 Resp 16 18 B/P (MAP) 142/60 (87) 149/57 (87) 149/57 Pulse Ox 95 97 98 O2 Delivery Room Air Room Air Room Air 08/31/18 08:47 Pulse 70 B/P (MAP) 149/57 Intake and Output 08/30/18 08/30/18 08/31/18 15:00 23:00 07:00 Intake Total 660 ml 280 ml 900 ml Balance 660 ml 280 ml 900 ml JAMES CORCORAN MD Aug 31, 2018 10:07
--- NOTE | 2018-08-31 10:13 | DISCH ---
DISCHARGE WITH HOME HEALTH DISCHARGE INFORMATION: Discharge Date: Aug 31, 2018 Condition on Discharge: Stable CODE STATUS: Code Status: Full HOME HEALTH: Face to Face: I certify this patient is under my care and that I, or a nurse practitioner or physician's school psychologist assistant working with me, had a face to face encounter that meets the physician face to face encounter requirements with this patient on [08/31/18]. Medical Complications: CHF, DM, Other (renal failure) Pt Meets Homebound Status: Poor coordination w/ amb. POST DISCHARGE ORDERS: Activity Instructions for Disc: No restrictions Weight Bearing Status after Di: No restrictions Bathing Instructions: No Tub Bath until see DIET AFTER DISCHARGE: Cardiac Wound/Incision Care: Ice to area for comfort, Change dressing, Routine catheter care CHECKS AFTER DISCHARGE: Checks after discharge: Check blood sugar, ac/hs, Weigh Yourself Daily Comment: bmp weekly fax to [phone] TREATMENT/EQUIPMENT ORDERS: Adaptive Equipment Issued: None, Four wheeled walker Discharge Respiratory Equipmen: Oxygen CERTIFICATION STATEMENT: Certification Statement: Certification Statement: Based on the above finding, I certify that this patient is confined to the home and needs intermittent custodial care, physical therapy and/or speech therapy, or continues to need occupational therapy.~ This patient is under my care, and I have initiated the establishment of the plan of care.~ This patient will be followed by myself or a community physician who will periodically review the plan of care. Home Meds Active Scripts Furosemide (LASIX) 40 Mg Tablet, 40 MG PO BID for chf for 30 Days, #60 TAB Prov:JAMES CORCORAN MD 08/13/18 Bumetanide (BUMETANIDE) 1 Mg Tablet, 1 TAB PO BID for chf, #60 TAB 1 Refill Prov:JAMES CORCORAN MD 08/13/18 Carvedilol (CARVEDILOL ) 12.5 Mg Tablet, 12.5 MG PO BIDWMEALS for cad for 30 Days, #60 TAB Prov:JAMES CORCORAN MD 07/23/18 Isosorbide Mononitrate (ISOSORBIDE MONONITRATE ER) 30 Mg Tab.er.24h, 30 MG PO DAILY for 30 Days, TAB 3 Refills Prov:JAMES CORCORAN MD 08/18/16 Atorvastatin Calcium (ATORVASTATIN CALCIUM) 20 Mg Tablet, 20 MG PO QHS for 30 Days, TAB 2 Refills Prov:JAMES CORCORAN MD 08/18/16 Reported Medications Levothyroxine Sodium (LEVOTHYROXINE SODIUM) 100 Mcg Tablet, 1 TAB PO QFR for thyroid, #30 TAB 5 Refills 08/30/18 Cefpodoxime Proxetil (CEFPODOXIME PROXETIL) 200 Mg Tablet, 0.5 TAB PO BID for UTI, #14 TAB 08/29/18 Clopidogrel Bisulfate (CLOPIDOGREL) 75 Mg Tablet, 75 MG PO DAILY for TO PREVENT BLOOD CLOTS, #30 TAB 0 Refills 06/04/18 Pregabalin (LYRICA) 50 Mg Capsule, 1 CAP PO BID for pain, #90 CAP 06/04/18 Famotidine (PEPCID) 40 Mg Tablet, 40 MG PO DAILY PRN for HEARTBURN / GAS, TAB 06/04/18 Ipratropium/Albuterol Sulfate (DUONEB 0.5-3(2.5) MG/3 ML) 3 Ml Ampul.neb, 3 ML NEB TID for difficulty breathing, EACH 06/04/18 Lidocaine (Lidocaine) 1 Each Adh..patch, 1 EACH TP DAILY for pain, PATCH 06/04/18 Nitroglycerin (NITROGLYCERIN SubLingual) 0.4 Mg Tab.subl, 1 TAB SL UD PRN for prn, #25 TAB 3 Refills 06/04/18 Acetaminophen With Codeine (TYLENOL WITH CODEINE #3 TABLET) 1 Each Tablet, 1 TAB PO PRN Q12HR PRN for PAIN, TAB 06/04/18 Losartan Potassium (LOSARTAN POTASSIUM) 100 Mg Tablet, 100 MG PO DAILY, TAB 01/21/18 Insulin Lispro (HUMALOG) 100 Unit/1 Ml Cartridge, 15 UNIT SQ TIDWMEALS, EACH 01/21/18 Docusate Sodium (DOCUSATE SODIUM) 100 Mg Capsule, 1 CAP PO DAILY, #30 CAP 01/21/18 Calcium Carbonate/Vitamin D3 (CALCIUM + VITAMIN D TABLET) 1 Each Tablet, 1 EACH PO, TAB 01/21/18 Insulin Glargine,Hum.rec.anlog (LANTUS) 100 Unit/1 Ml Vial, 35 UNIT SQ HS, VIAL 07/19/16 Linagliptin (TRADJENTA) 5 Mg Tablet, 1 TAB PO DAILYWLUN, #90 TAB 1 Refill 07/19/16 Levothyroxine Sodium (SYNTHROID) 50 Mcg Tablet, 1 TAB PO DAILY06 for thyroid, # 30 TAB 5 Refills 07/19/16 JAMES CORCORAN MD Aug 31, 2018 10:13
[2018-08-31 11:00] VITALS: BP 142/96
--- NOTE | 2018-08-31 11:33 | PDOC2 ---
CONSULT Date of Consult Date of Consult DATE: 08/31/18 TIME: 11:29 Reason for Consult Reason for Consult: ABNORMAL LABS Referring Physician Referring Physician: JEWELL Identification/Chief Complaint Chief Complaint WEAKNESS Source Source: Chart review History of Present Illness Reason for Visit: THIS IS AN 88 YR OLD WITH CKD STAGE 4 WITH CR OF 2.0. SHE IS NOTED TO BE WEAK AND OP LABS SHOWED A BUN OF 164 AND CR OF 2.8. SHE HAS A HX OF CM AND CHF AND HAS BEEN ON DIURETICS. NO COMPLAINTS OF ANY SOB. CKD DUE TO HTN AND DM II HX. RENAL SONO AND CXRAY ARE NEG Past Medical History Cardiovascular: CAD, CHF, HTN, Hyperlipidemia, Other Pulmonary: No pertinent hx CENTRAL NERVOUS SYSTEM: Other GI: Other Heme/Onc: Anemia NOS, Cancer Hepatobiliary: No pertinent hx Psych: Anxiety, Depression Musculoskeletal: Osteoarthritis Rheumatologic: No pertinent hx Infectious disease: Other Renal/: UTI Endocrine: Diabetes Past Surgical History Past Surgical History: Total hip replacement Family History Family History: Other Social History ALCOHOL: none Drugs: None Lives: with Family Current Medications Current Medications Current Medications Pharmacy Consult (C.diff Med Screen By Rx) 1 each 1X ONCE MC ; Start 08/29/18 at 15:15; Stop 08/29/18 at 15:16; Status DC Sodium Chloride 1,000 ml @ 75 mls/hr [id number] IV Last administered on at 21:32; Start 08/29/18 at 16:00 Sodium Chloride 250 ml @ 250 mls/hr 1X ONCE IV Last administered on at 18:12; Start 08/29/18 at 16:00; Stop 08/29/18 at 16:59; Status DC Insulin Glargine (Lantus) 35 units QHS SQ ; Start 08/29/18 at 21:00; Stop at 09:46; Status DC Insulin Human Lispro (HumaLOG) 0-7 UNITS TIDWMEALS SQ Last administered on 08/30at 12:37; Start 08/29/18 at 17:00 Dextrose (Dextrose 50%-Water Syringe) 12.5 gm PRN Q15MIN PRN IV SEE COMMENTS Last administered on 08/30/18at 05:18; Start 08/29/18 at 16:00 Acetaminophen/ Codeine Phosphate (Tylenol #3) 1 tab PRN Q12HR PRN PO PAIN Last administered on 08/31/18 08:52; Start 08/29/18 at 16:00 Atorvastatin Calcium (Lipitor) 20 mg QHS PO Last administered on 08/30/18 21: 27; Start 08/29/18 at 21:00 Carvedilol (Coreg) 12.5 mg BIDWMEALS PO Last administered on 08/31/18 08:47; Start 08/29/18 at 17:00 Clopidogrel Bisulfate (Plavix) 75 mg DAILY PO Last administered on 08/31/18 08: 48; Start 08/30/18 at 09:00 Docusate Sodium (Colace) 100 mg DAILY PO Last administered on 08/31/18 08:47; Start 08/30/18 at 09:00 Albuterol/ Ipratropium (Duoneb) 3 ml TID NEB Last administered on 08/31/18 07: 11; Start 08/29/18 at 21:00 Isosorbide Mononitrate (Imdur) 30 mg DAILY PO Last administered on 08/31/18 08: 47; Start 08/30/18 at 09:00 Linagliptin (Tradjenta) 5 mg DAILYWLUN PO ; Start 08/30/18 at 12:00; Stop at 12:00; Status DC Nitroglycerin (Nitrostat) 0.4 mg PRN Q15MIN PRN SL prn; Start 08/29/18 at 16:00 Pregabalin (Lyrica) 50 mg BID PO Last administered on 08/31/18 08:48; Start at 21:00 Famotidine (Pepcid) 20 mg PRN DAILY PRN PO GI; Start 08/29/18 at 21:00 Insulin Glargine (Lantus) 35 units QHS SQ ; Start 08/29/18 at 21:00; Stop at 09:45; Status DC Levothyroxine Sodium (Synthroid) 50 mcg DAILY06 PO Last administered on 05:48; Start 08/30/18 at 06:00 Lidocaine (Lidoderm) 1 patch DAILY TD Last administered on 08/31/18 08:48; Start 08/29/18 at 16:30 Losartan Potassium (Cozaar) 100 mg DAILY PO Last administered on 08/30/18at 08: 20; Start 08/30/18 at 09:00; Stop 08/30/18 at 09:45; Status DC Miscellaneous (Lidoderm Patch Removal) 1 ea QHS MC Last administered on at 21:00; Start 08/29/18 at 21:00 Insulin Glargine (Lantus) 20 units QHS SQ ; Start 08/30/18 at 21:00 Heparin Sodium (Porcine) (Heparin Sodium) 5,000 unit Q12HR SQ Last administered on 08/30/18at 12:40; Start 08/30/18 at 11:00 Levothyroxine Sodium (Synthroid) 50 mcg WEEKLYAC PO Last administered on at 05:48; Start 08/31/18 at 06:00 Active Scripts Active Carvedilol (Carvedilol) 12.5 Mg Tablet 12.5 Mg PO BIDWMEALS 30 Days Isosorbide Mononitrate Er (Isosorbide Mononitrate) 30 Mg Tab.er.24h 30 Mg PO DAILY 30 Days Atorvastatin Calcium 20 Mg Tablet 20 Mg PO QHS 30 Days Reported Levothyroxine Sodium 100 Mcg Tablet 1 Tab PO QFR Clopidogrel (Clopidogrel Bisulfate) 75 Mg Tablet 75 Mg PO DAILY Lyrica (Pregabalin) 50 Mg Capsule 1 Cap PO BID Pepcid (Famotidine) 40 Mg Tablet 40 Mg PO DAILY PRN Duoneb 0.5-3(2.5) Mg/3 Ml (Albuterol/Ipratropium) 3 Ml Ampul.neb 3 Ml NEB TID Lidocaine 1 Each Adh..patch 1 Each TP DAILY NITROGLYCERIN SubLingual (Nitroglycerin) 0.4 Mg Tab.subl 1 Tab SL UD PRN Tylenol With Codeine #3 Tablet (Acetaminophen/Codeine Phosphate) 1 Each Tablet 1 Tab PO PRN Q12HR PRN Losartan Potassium 100 Mg Tablet 100 Mg PO DAILY Humalog (Insulin Lispro) 100 Unit/1 Ml Cartridge 15 Unit SQ TIDWMEALS Docusate Sodium 100 Mg Capsule 1 Cap PO DAILY Calcium + Vitamin D Tablet (Calcium Carbonate/Vitamin D3) 1 Each Tablet 1 Each PO Lantus (Insulin Glargine,Hum.rec.anlog) 100 Unit/1 Ml Vial 35 Unit SQ HS Synthroid (Levothyroxine Sodium) 50 Mcg Tablet 1 Tab PO DAILY06 Allergies Allergies: Coded Allergies: No Known Medication Allergies (Verified Allergy, Unknown, 08/01/18) ROS Review of System CONFUSED Physical Exam General: Alert, Cooperative, No acute distress HEENT: Atraumatic, PERRLA Lungs: Clear to auscultation Heart: Regular rate, Normal S1, Normal S2 Abdomen: Normal bowel sounds, Soft, No tenderness Extremities: No cyanosis Skin: No breakdown Neuro: Other (CONFUSED) Psych/Mental Status: Other (CONFUSED) MUSCULOSKELETAL: No deformity, No swelling Vitals VITALS Vital Signs Date Time Temp Pulse Resp B/P (MAP) Pulse Ox O2 Delivery O2 Flow Rate FiO2 08/31/18 10:23 Room Air 08/31/18 08:47 70 149/57 08/31/18 07:13 98 08/31/18 07:00 98.6 18 98.6 Labs Labs Laboratory Tests Test 08/29/18 16:29 08/29/18 16:35 08/29/18 17:00 08/29/18 20:10 Glucose (Fingerstick) 114 mg/dL (70-99) 119 mg/dL (70-99) White Blood Count 6.9 x10^3/uL (4.0-11.0) Red Blood Count 3.53 x10^6/uL (3.50-5.40) Hemoglobin 9.9 g/dL (12.0-15.5) Hematocrit 29.3 % (36.0-47.0) Mean Corpuscular Volume 83 fL (79-100) Mean Corpuscular Hemoglobin 28 pg (25-35) Mean Corpuscular Hemoglobin Concent 34 g/dL (31-37) Red Cell Distribution Width 14.1 % (11.5-14.5) Platelet Count 147 x10^3/uL (140-400) Neutrophils (%) (Auto) 72 % (31-73) Lymphocytes (%) (Auto) 18 % (24-48) Monocytes (%) (Auto) 6 % (0-9) Eosinophils (%) (Auto) 3 % (0-3) Basophils (%) (Auto) 0 % (0-3) Neutrophils # (Auto) 5.0 x10^3uL (1.8-7.7) Lymphocytes # (Auto) 1.3 x10^3/uL (1.0-4.8) Monocytes # (Auto) 0.4 x10^3/uL (0.0-1.1) Eosinophils # (Auto) 0.2 x10^3/uL (0.0-0.7) Basophils # (Auto) 0.0 x10^3/uL (0.0-0.2) Sodium Level 138 mmol/L (136-145) Potassium Level 4.7 mmol/L (3.5-5.1) Chloride Level 101 mmol/L (98-107) Carbon Dioxide Level 23 mmol/L (21-32) Anion Gap 14 (6-14) Blood Urea Nitrogen 164 mg/dL (7-20) Creatinine 2.8 mg/dL (0.6-1.0) Estimated GFR (Cockcroft-Gault) 16.0 BUN/Creatinine Ratio 59 (6-20) Glucose Level 126 mg/dL (70-99) Calcium Level 8.6 mg/dL (8.5-10.1) Total Bilirubin 0.2 mg/dL (0.2-1.0) Aspartate Amino Transf (AST/SGOT) 25 U/L (15-37) Alanine Aminotransferase (ALT/SGPT) 30 U/L (14-59) Alkaline Phosphatase 123 U/L (46-116) Total Protein 7.7 g/dL (6.4-8.2) Albumin 3.4 g/dL (3.4-5.0) Albumin/Globulin Ratio 0.8 (1.0-1.7) Urine Collection Type Unknown Urine Color Yellow Urine Clarity Clear Urine pH 5.0 Urine Specific Potter 1.010 Urine Protein Negative mg/dL (NEG-TRACE) Urine Glucose (UA) Negative mg/dL (NEG) Urine Ketones (Stick) Negative mg/dL (NEG) Urine Blood Trace (NEG) Urine Nitrite Negative (NEG) Urine Bilirubin Negative (NEG) Urine Urobilinogen Dipstick 0.2 mg/dL (0.2 mg/dL) Urine Leukocyte Esterase Negative (NEG) Urine RBC Rare /HPF (0-2) Urine WBC Occ /HPF (0-4) Urine Squamous Epithelial Cells Few /LPF Urine Bacteria 0 /HPF (0-FEW) Urine Hyaline Casts Few /HPF Urine Mucus Slight /LPF Test 08/30/18 03:35 08/30/18 05:13 08/30/18 05:28 08/30/18 05:41 Sodium Level 144 mmol/L (136-145) Potassium Level 4.2 mmol/L (3.5-5.1) Chloride Level 108 mmol/L (98-107) Carbon Dioxide Level 23 mmol/L (21-32) Anion Gap 13 (6-14) Blood Urea Nitrogen 150 mg/dL (7-20) Creatinine 2.2 mg/dL (0.6-1.0) Estimated GFR (Cockcroft-Gault) 21.2 Glucose Level 47 mg/dL (70-99) Calcium Level 8.8 mg/dL (8.5-10.1) Glucose (Fingerstick) 43 mg/dL (70-99) 217 mg/dL (70-99) 184 mg/dL (70-99) Test 08/30/18 07:48 08/30/18 11:39 08/30/18 16:50 08/30/18 20:26 Glucose (Fingerstick) 100 mg/dL (70-99) 228 mg/dL (70-99) 106 mg/dL (70-99) 181 mg/dL (70-99) Test 08/31/18 05:29 08/31/18 07:58 Sodium Level 147 mmol/L (136-145) Potassium Level 4.8 mmol/L (3.5-5.1) Chloride Level 113 mmol/L (98-107) Carbon Dioxide Level 23 mmol/L (21-32) Anion Gap 11 (6-14) Blood Urea Nitrogen 114 mg/dL (7-20) Creatinine 1.7 mg/dL (0.6-1.0) Estimated GFR (Cockcroft-Gault) 28.5 Glucose Level 158 mg/dL (70-99) Calcium Level 8.5 mg/dL (8.5-10.1) Glucose (Fingerstick) 133 mg/dL (70-99) Laboratory Tests Test 08/30/18 11:39 08/30/18 16:50 08/30/18 20:26 08/31/18 05:29 Glucose (Fingerstick) 228 mg/dL (70-99) 106 mg/dL (70-99) 181 mg/dL (70-99) Sodium Level 147 mmol/L (136-145) Potassium Level 4.8 mmol/L (3.5-5.1) Chloride Level 113 mmol/L (98-107) Carbon Dioxide Level 23 mmol/L (21-32) Anion Gap 11 (6-14) Blood Urea Nitrogen 114 mg/dL (7-20) Creatinine 1.7 mg/dL (0.6-1.0) Estimated GFR (Cockcroft-Gault) 28.5 Glucose Level 158 mg/dL (70-99) Calcium Level 8.5 mg/dL (8.5-10.1) Test 08/31/18 07:58 Glucose (Fingerstick) 133 mg/dL (70-99) Assessment/Plan Assessment/Plan IMP IGOR WITH CR OF 2.8 DEHYDRATION CKD STAGE 45 WITH CR OF 2.0 CM WITH EF OF 20-30% HX OF ACUTE ON CHRONIC D AND S CHF-COMPENSATED HTN HX DM II PLAN HOLD HER LOSARTAN HYDRATE MONITOR FOR VOLUME OVERLOAD WILL FOLLOW VLADIMIR LAMB MD Aug 31, 2018 11:33
--- NOTE | 2018-08-31 12:00 | NUR ---
pt dishcarged home with family. orders for HH to resume, per Dr. Mcdonough. meds and follow up reviewed. pt daughter voiced understanding.
--- NOTE | 2018-08-31 15:34 | NUR ---
SS following up with discharge planning. Discharge orders for return to home with home healthcare received. SS phoned and faxed referral and discharge order to [facility], ; fax [phone].
--- NOTE | 2018-09-03 15:42 | PDOC ---
Provider Note Provider Note Discharge summary dictated. #[id number] JAMES CORCORAN MD Sep 03, 2018 15:42
--- NOTE | 2018-09-03 23:12 | DS ---
DATE OF DISCHARGE: 08/31/2018 REASON FOR ADMISSION TO THE HOSPITAL: [id number] renal insufficiency. CONSULTATION: Dr. Palacio. PROCEDURE DONE: Ultrasound of the kidneys. HOSPITAL COURSE: The patient is an 88-year-old female with history of chronic congestive heart failure and diuretics, Bumex 1 mg twice a day, Lasix twice a day. She was dry. BUN went up to 150, creatinine 2.5, was admitted to the hospital, given IV fluids and BUN came down to 116, creatinine 1.7 and the patient was feeling better. She was anxious to go home, did not want to stay in the hospital. It was felt that she could be discharged home, hold any diuretics and do outpatient labs by home health. FINAL DIAGNOSES: 1. Kceee-yo-yrtxjcu renal failure, stage 3-4 2. Chronic systolic heart failure 30-40 % ejf. 3. Coronary artery disease 3 vessel disease. 4. Diabetes iddm. DISPOSITION: Home with home health. DISCHARGE MEDICATIONS: See MRAD for discharge medications. JAMES CORCORAN MD DR: ADRIANA/liang JOB#: [id number] / [id number] FERNANDO
== END 2018-08-31 12:00 | disposition home health service (06) | DRG 683 ==
LOC: 5 SOUTH 13:50
PROVIDERS: ADMIT Internal Medicine; ATTEND Internal Medicine
DX: N17.9 Acute kidney failure, unspecified (principal); I13.0 Hypertensive heart and chronic kidney disease with heart failure and stage 1 through stage 4 chronic kidney disease, or unspecified chronic kidney disease; I50.22 Chronic systolic (congestive) heart failure; I42.9 Cardiomyopathy, unspecified; N18.4 Chronic kidney disease, stage 4 (severe); E11.22 Type 2 diabetes mellitus with diabetic chronic kidney disease; I25.10 Atherosclerotic heart disease of native coronary artery without angina pectoris; E03.9 Hypothyroidism, unspecified; E11.51 Type 2 diabetes mellitus with diabetic peripheral angiopathy without gangrene; F32.9 Major depressive disorder, single episode, unspecified; F41.9 Anxiety disorder, unspecified; Z96.643 Presence of artificial hip joint, bilateral; M19.90 Unspecified osteoarthritis, unspecified site; E78.5 Hyperlipidemia, unspecified; E86.0 Dehydration; Z79.4 Long term (current) use of insulin; Z79.899 Other long term (current) drug therapy; Z85.3 Personal history of malignant neoplasm of breast; Z87.440 Personal history of urinary (tract) infections; Z90.12 Acquired absence of left breast and nipple; Z89.422 Acquired absence of other left toe(s); Z89.421 Acquired absence of other right toe(s)
CPT/HCPCS: 36415; 71045; 76770; 80048; 80053; 81001; 82962; 85025; 93005; 94640; J1644; J1815; J7030; J7042; J7050; J7620; 97116; 97535

== ENCOUNTER → 2018-11-15 | Outpatient (CLI) | payer MEDICARE, OTHER ==
[~2018-11-15] MED LIST changes: +BUME0.5T2 PO; +CEFP200T PO; +DICL100G18 TP; +LEVO100T5 PO
--- NOTE | 2018-11-15 16:35 | RAD ---
Cervical spine, 3 views, 11/15/2018: HISTORY: Neck pain, weakness The lower cervical spine was not optimally visualized in the lateral projection due to the high position of the patient shoulders. There is moderate spurring in the mid and lower cervical spine. There are mild mild to moderate degenerative changes involving scattered facet joints bilaterally. No fracture or dislocation is identified. No prevertebral soft tissue swelling is seen. There is moderate calcific plaquing at both carotid bifurcations. IMPRESSION: 1. Mild to moderate scattered degenerative changes. 2. No acute bony abnormality is detected. Electronically signed by: Wil Escudero MD (11/15/2018 4:32 PM) [facility]
== END | disposition home or self-care (01) ==
LOC: RAD 12:28
PROVIDERS: ATTEND Internal Medicine
DX: M47.812 Spondylosis without myelopathy or radiculopathy, cervical region (principal); M46.02 Spinal enthesopathy, cervical region; I65.23 Occlusion and stenosis of bilateral carotid arteries
CPT/HCPCS: 72040

== ENCOUNTER 2018-11-29 18:16 | Inpatient (IN) | payer MEDICARE, OTHER ==
[~2018-11-29] VITALS: Ht 152.4 cm; Wt 64.1 kg
[~2018-11-29 18:16] MED LIST changes: -BUME0.5T2 PO; -DICL100G18 TP
--- NOTE | 2018-11-29 18:41 | PHYS DOC ---
Past Medical History Past Medical History: Anemia, Cancer, CHF, Diabetes-Type II, GERD, High Cholesterol, Hypertension, Hypothyroid, SD, Other Additional Past Medical Histor: L. BREAST CA,CHRONIC PAIN, L EYE BLIND Past Surgical History: Cholecystectomy, Other Additional Past Surgical Histo: L. MASTECTOMY,LEG SURG; L HIPbypass bilat LE,cardiac cath/no stents Smoking: Quit Greater Than 1 Year Alcohol Use: None Drug Use: None Adult General Chief Complaint Chief Complaint: SHORTNESS OF BREATH HPI HPI 88-year-old female with pmh of CHF, kidney failure, DM, hx of pleural effusion, CAD, HTN, breast CA, and hyperlipidemia presents with report of sudden shortness of breath that started at approximately 1500 today. Denies fever or chills. Patient does have a history of former smoking and is prescribed no laser treatments at home. Patient reports she used a nebulizer treatment prior to arrival with some limited improvement of symptoms. Denies leg swelling or calf tenderness. Denies pleuritic pain. Denies known trauma. Patient does report positive sick contact of daughter with URI-type symptoms. Denies chest pain. Denies nausea/vomiting/diarrhea. Denies abdominal pain. Review of Systems Review of Systems Constitutional: Denies fever or chills Eyes: Denies redness or eye pain HENT: Denies nasal congestion or sore throat Respiratory: Reports shortness of breath Cardiovascular: Denies chest pain or palpitations GI: Denies abdominal pain, nausea, or vomiting : Denies dysuria or hematuria Musculoskeletal: Denies back pain or joint pain Integument: Denies rash or skin lesions Neurologic: Denies headache, focal weakness or sensory changes Complete systems were reviewed and found to be within normal limits, except as documented in this note. Current Medications Current Medications Current Medications Medications (Trade) Dose Ordered Sig/Kyle Start Time Stop Time Status Last Admin Dose Admin Acetaminophen (Tylenol) 650 mg PRN Q4HRS PRN 11/29/18 20:30 11/30/18 20:29 Albuterol/ Ipratropium (Duoneb) 3 ml 1X ONCE 11/29/18 18:45 11/29/18 18:46 DC 11/29/18 18:55 3 ML Aspirin (Gege Aspirin) 325 mg 1X ONCE 11/29/18 18:45 11/29/18 18:46 DC 5/30/19 18:45 325 MG Bumetanide (Bumex) 0.5 mg 1X ONCE 11/29/18 20:45 11/29/18 20:46 DC Ceftriaxone Sodium (Rocephin) 1 gm 1X ONCE 11/29/18 20:45 11/29/18 20:46 DC Dexamethasone Sodium Phosphate (Decadron) 10 mg 1X ONCE 11/29/18 18:45 11/29/18 18:46 DC 11/29/18 18:51 10 MG Dextrose (Dextrose 50%-Water Syringe) 12.5 gm PRN Q15MIN PRN 11/29/18 20:30 Enoxaparin Sodium (Lovenox 60mg Syringe) 60 mg 1X ONCE 11/29/18 21:00 11/29/18 21:01 Insulin Human Lispro (HumaLOG) 0-5 UNITS TIDWMEALS 11/30/18 08:00 UNV Labetalol HCl (Normodyne Iv Push) 10 mg 1X ONCE 11/29/18 19:15 11/29/18 19:16 DC 11/29/18 19:24 10 MG Allergies Allergies Allergies Coded Allergies Type Severity Reaction Last Updated Verified No Known Medication Allergies Allergy Unknown 08/01/18 Yes Physical Exam Physical Exam Constitutional: Well developed, well nourished, no acute distress, non-toxic appearance HENT: Normocephalic, atraumatic, oropharynx moist Eyes: Conjunctiva normal, no discharge Neck: Normal range of motion, no tenderness, supple Cardiovascular: Heart rate normal, regular rhythm Lungs & Thorax: Bilateral breath sounds diminished at bases, no distress noted Abdomen: Soft, no tenderness, mild distention Skin: Warm, dry, no erythema, no rash Back: No tenderness, no CVA tenderness Extremities: No tenderness, ROM intact, no edema Neurologic: Alert and oriented X 3, normal motor function, normal sensory function, no focal deficits noted Psychologic: Affect normal, judgement normal, mood normal Current Patient Data Vital Signs Vital Signs Date Time Temp Pulse Resp B/P (MAP) Pulse Ox O2 Delivery O2 Flow Rate FiO2 11/29/18 19:24 67 178/69 11/29/18 18:56 97 Room Air 11/29/18 18:38 99.0 18 99.0 Lab Values Laboratory Tests Test 11/29/18 18:33 11/29/18 18:35 Urine Collection Type Unknown Urine Color Yellow Urine Clarity Clear Urine pH 5.0 Urine Specific [place] 1.015 Urine Protein >=300 mg/dL (NEG-TRACE) Urine Glucose (UA) Negative mg/dL (NEG) Urine Ketones (Stick) Negative mg/dL (NEG) Urine Blood Large (NEG) Urine Nitrite Positive (NEG) Urine Bilirubin Negative (NEG) Urine Urobilinogen Dipstick 0.2 mg/dL (0.2 mg/dL) Urine Leukocyte Esterase Large (NEG) Urine RBC 1-2 /HPF (0-2) Urine WBC 20-40 /HPF (0-4) Urine Squamous Epithelial Cells Mod /LPF Urine Bacteria Many /HPF (0-FEW) White Blood Count 5.7 x10^3/uL (4.0-11.0) Red Blood Count 3.39 x10^6/uL (3.50-5.40) L Hemoglobin 9.6 g/dL (12.0-15.5) L Hematocrit 28.7 % (36.0-47.0) L Mean Corpuscular Volume 85 fL (79-100) Mean Corpuscular Hemoglobin 28 pg (25-35) Mean Corpuscular Hemoglobin Concent 33 g/dL (31-37) Red Cell Distribution Width 14.9 % (11.5-14.5) H Platelet Count 141 x10^3/uL (140-400) Neutrophils (%) (Auto) 70 % (31-73) Lymphocytes (%) (Auto) 21 % (24-48) L Monocytes (%) (Auto) 6 % (0-9) Eosinophils (%) (Auto) 2 % (0-3) Basophils (%) (Auto) 1 % (0-3) Neutrophils # (Auto) 4.0 x10^3uL (1.8-7.7) Lymphocytes # (Auto) 1.2 x10^3/uL (1.0-4.8) Monocytes # (Auto) 0.4 x10^3/uL (0.0-1.1) Eosinophils # (Auto) 0.1 x10^3/uL (0.0-0.7) Basophils # (Auto) 0.0 x10^3/uL (0.0-0.2) D-Dimer (Kristina) 0.91 ug/mlFEU (0.00-0.50) H Sodium Level 139 mmol/L (136-145) Potassium Level 5.2 mmol/L (3.5-5.1) H Chloride Level 106 mmol/L (98-107) Carbon Dioxide Level 24 mmol/L (21-32) Anion Gap 9 (6-14) Blood Urea Nitrogen 54 mg/dL (7-20) H Creatinine 1.6 mg/dL (0.6-1.0) H Estimated GFR (Cockcroft-Gault) 30.6 BUN/Creatinine Ratio 34 (6-20) H Glucose Level 147 mg/dL (70-99) H Lactic Acid Level 0.9 mmol/L (0.4-2.0) Calcium Level 8.7 mg/dL (8.5-10.1) Magnesium Level 2.6 mg/dL (1.8-2.4) H Total Bilirubin 0.3 mg/dL (0.2-1.0) Aspartate Amino Transferase (AST) 20 U/L (15-37) Alanine Aminotransferase (ALT) 27 U/L (14-59) Alkaline Phosphatase 136 U/L (46-116) H Creatine Kinase 127 U/L (26-192) Creatine Kinase MB (Mass) 3.0 ng/mL (0.0-3.6) Creatine Kinase MB Relative Index 2.4 % (0-4) Troponin I Quantitative 0.025 ng/mL (0.000-0.055) WX-Uov-C-Type Natriuretic Peptide 59926 pg/mL (0-449) H Total Protein 6.8 g/dL (6.4-8.2) Albumin 3.4 g/dL (3.4-5.0) Albumin/Globulin Ratio 1.0 (1.0-1.7) Laboratory Tests 11/29/18 18:35 Laboratory Tests 11/29/18 18:35 EKG EKG @1828 NSR at 69bpm, frequent PVCs, NO ST elevation Radiology/Procedures Radiology/Procedures [] Course & Med Decision Making Course & Med Decision Making Pertinent Labs and Imaging studies reviewed. (See chart for details) Patient presents with shortness of breath started today at 1500. Denies trauma. Denies chest pain or pleuritic pain. No edema or calf tenderness noted. Patient unsure of diagnosis of chronic bronchitis or COPD. Patient does have a history of former smoking and is currently prescribed nebulizer treatments. No respiratory distress noted. Symptomatic treatment provided with DuoNeb and IV dexamethasone. Aspirin also provided. Blood pressure elevated upon arrival. Blood pressure addressed. Labs obtained and posted to chart. Troponin ....... D-dimer ....... Lactic acid....EKG stable. Chest x-ray....... Dragon Disclaimer Dragon Disclaimer This electronic medical record was generated, in whole or in part, using a voice recognition dictation system. Departure Departure Impression: Primary Impression: CHF exacerbation Additional Impressions: Elevated d-dimer Urinary tract infection Disposition: ADMITTED INPATIENT Admitting Physician: Jackie Mcdonough Condition: STABLE Referrals: JACKIE MCDONOUGH MD (PCP) Problem Qualifiers Primary Impression: CHF exacerbation Heart failure type: systolic Qualified Codes: I50.23 - Acute on chronic systolic (congestive) heart failure Additional Impressions: Urinary tract infection Urinary tract infection type: acute cystitis Hematuria presence: without hematuria Qualified Codes: N30.00 - Acute cystitis without hematuria HU BUENO DO November 29, 2018 18:41
[2018-11-29] MEDS ORDERED: DEXAMETHASONE SOD PHOS 20 MG/5 ML VIAL. IV ONE (18:45)
[2018-11-29] MEDS ORDERED: ASPIRIN 325 MG TABLET PO ONE (18:45)
[2018-11-29] MEDS ORDERED: IPRATRPIUM/ALBUTEROL 0.5/2.5MG 3 ML NEBU. NEB ONE (18:45)
[2018-11-29 18:50] LABS: BILIRUBIN,URINE NEGATIVE (NEG); CLARITY,URINE CLEAR; COLOR,URINE YELLOW; NITRITE,URINE POSITIVE (NEG); PROTEIN,URINE >=300 mg/dL (NEG-TRACE); UROBILINOGEN,URINE 0.2 mg/dL (0.2 mg/dL)
[2018-11-29 18:50] LABS: BASO % 1 % (0-3); EOS # 0.1 x10^3/uL (0.0-0.7); EOS % 2 % (0-3); HEMATOCRIT 28.7 % (36.0-47.0); HEMOGLOBIN 9.6 g/dL (12.0-15.5); LYMPH # 1.2 x10^3/uL (1.0-4.8); LYMPH % 21 % (24-48); MEAN CORPUSCULAR HEMOGLOBIN 28 pg (25-35); MEAN CORPUSCULAR HGB CONC 33 g/dL (31-37); MEAN CORPUSCULAR VOLUME 85 fL (79-100); MONO # 0.4 x10^3/uL (0.0-1.1); MONO % 6 % (0-9); NEUT % 70 % (31-73); PLATELET COUNT 141 x10^3/uL (140-400); RED BLOOD COUNT 3.39 x10^6/uL (3.50-5.40); RED CELL DISTRIBUTION WIDTH 14.9 % (11.5-14.5); WHITE BLOOD COUNT 5.7 x10^3/uL (4.0-11.0)
[2018-11-29 19:01] LABS: BACTERIA,URINE MANY /HPF (0-FEW); SQUAMOUS EPITHELIAL CELL,UR MOD /LPF; WBC,URINE 20-40 /HPF (0-4)
[2018-11-29 19:11] LABS: CALCIUM 8.7 mg/dL (8.5-10.1); CREATININE 1.6 mg/dL (0.6-1.0); GFR 30.6; POTASSIUM 5.2 mmol/L (3.5-5.1)
[2018-11-29] MEDS ORDERED: LABETALOL 20 MG/4 ML DISP.SYRIN. IVP ONE (19:15)
[2018-11-29 19:18] LABS: ALBUMIN 3.4 g/dL (3.4-5.0); MAGNESIUM 2.6 mg/dL (1.8-2.4); TOTAL BILIRUBIN 0.3 mg/dL (0.2-1.0); TOTAL PROTEIN 6.8 g/dL (6.4-8.2)
[2018-11-29] MEDS ORDERED: ACETAMINOPHEN 325 MG TABLET. PO PRN (20:30)
[2018-11-29] MEDS ORDERED: cefTRIAXone IV Push 1 GM VIAL. IVP ONE (20:45)
[2018-11-29] MEDS ORDERED: BUMETANIDE 1 MG/4 ML VIAL. IV ONE (20:45)
[2018-11-29 23:00] VITALS: BP 191/70
--- NOTE | 2018-11-29 23:40 | RAD ---
PA and lateral chest radiographs 11/29/2018 CLINICAL HISTORY: Shortness of breath. PA and lateral digital radiographs of chest were obtained. Comparison study is dated 08/29/2018. The cardiac silhouette is mildly enlarged. The thoracic aorta is tortuous. Atherosclerotic calcification thoracic aorta is seen. Slight prominence of pulmonary vasculature is seen which could reflect mild CHF. No area of consolidation is noted. No pneumothorax or definite pleural effusion is noted. The osseous structures are unchanged. IMPRESSION: Findings suggesting mild CHF. Electronically signed by: Anand Contreras MD (11/29/2018 11:37 PM) [facility]
[2018-11-30 03:00] VITALS: BP 109/70
[2018-11-30] MEDS ORDERED: FERR325T14 PO (05:35)
[2018-11-30] MEDS ORDERED: DICL100G18 TP (05:35)
--- NOTE | 2018-11-30 06:10 | EKG ---
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
[2018-11-30 07:00] VITALS: BP 204/78
[2018-11-30] MEDS ORDERED: INSULIN LISPRO 300 UNITS/3 ML INSULN.PEN. SQ SCH ×2 (08:00→12:00)
[2018-11-30] MEDS ORDERED: hydrALAZINE 20 MG/ML VIAL. IVP ONE (08:15)
[2018-11-30] MEDS ORDERED: DEXTROSE 50% 25 GM / 50ML DISP.SYRIN. IV PRN (09:45)
--- NOTE | 2018-11-30 09:52 | PDOC ---
Provider Note Provider Note Pt seen.H&P dictated. #[id number] JAMES CORCORAN MD November 30, 2018 09:51
[2018-11-30] MEDS ORDERED: LEVOTHYROXINE 100 MCG TABLET PO SCH (10:00)
[2018-11-30] MEDS: DOCUSATE SODIUM 100 MG CAPSULE. PO SCH (10:00)
[2018-11-30] MEDS ORDERED: BUMETANIDE 1 MG/4 ML VIAL. IV ONE (10:00)
[2018-11-30] MEDS: PREGABALIN 50 MG CAPSULE PO SCH ×2 (10:00→20:59)
--- NOTE | 2018-11-30 10:33 | HP ---
ADMIT DATE: 11/29/2018 LOCATION: 352. REASON FOR ADMISSION TO THE HOSPITAL: Shortness of breath, congestive heart failure exacerbation. HISTORY OF PRESENT ILLNESS: The patient is an 88-year-old female. She has a known 3-vessel disease, not a good candidate for intervention and medical management. She also has chronic systolic heart failure, ejection fraction of 30-35%. She was having shortness of breath, was brought to the hospital. Her BNP was elevated. Chest x-ray shows CHF, was admitted to the hospital, was given IV Bumex. PAST MEDICAL HISTORY: She has history of diabetes, insulin-dependent. Chronic coronary artery disease, 3-vessel, not a candidate for bypass or intervention, conservative with medical treatment. She also has chronic systolic heart failure, and she also has recurrent UTIs. OTHER MEDICAL HISTORY: Breast cancer, hip fracture, hyperlipidemia, hypothyroidism, anxiety, depression, recurrent UTIs. PAST SURGICAL HISTORY: Left mastectomy for breast cancer, left hip replacement for fracture from fall. Cardiac cath shows 3-vessel disease. ALLERGIES: No known allergies. MEDICATIONS: As above. PERSONAL HISTORY: No history of smoking, alcohol or drug abuse FAMILY HISTORY: Positive for diabetes, heart disease. SOCIAL HISTORY: Lives with her daughter. She is in a wheelchair level. She had a trip to [place] recently, came back last week. MEDICATIONS AT HOME: She is on insulin 15 units 3 times daily. NovoLog and Lantus, she takes 35 at bedtime. Iron 325 daily, sublingual nitro, Tylenol p.r.n., atorvastatin 20 mg daily. Calcium with vitamin D daily, Coreg 12.5 mg twice a day. Plavix 75 mg daily. Diclofenac for arthritis, Colace 100 mg daily, Pepcid 40 mg daily, DuoNeb 4 times daily, isosorbide 30 mg daily, levothyroxine 100 mcg daily, losartan 100 mg daily, Lyrica 50 mg twice a day. REVIEW OF SYSTEMS: Denies any chest pain. Comes with shortness of breath, no swelling in the legs. Rest of the 14-system was reviewed and negative. PHYSICAL EXAMINATION: GENERAL: The patient is an elderly female, not in any distress. VITAL SIGNS: Temperature 99, pulse 66, respirations 18, blood pressure 197/86, 98 on room air. HEENT: Head is atraumatic. 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 Oral cavity: Dentures. NECK: Supple. Thyroid not enlarged. JVD not elevated. CHEST: Left mastectomy. CARDIOVASCULAR: S1, S2. No murmurs. LUNGS: Few crackles, otherwise no wheezing. ABDOMEN: Soft, bowel sounds present, no mass palpable. EXTERNAL GENITALIA: No Simpson. RECTAL: Deferred. EXTREMITIES: The patient has no edema. The patient had a previous amputation of a couple of toes and no sores, no ulcers at this time. She also had a history of angioplasty of the leg before for circulation. LABORATORY DATA: Shows a white count 5.7, hemoglobin 9.6, platelets 141. Electrolytes show sodium 139, potassium 5.2, chloride 106, bicarbonate 24, BUN 54, creatinine 1.6, glucose 147. Magnesium 2.6. LFTs normal. BNP 25,000. Troponin 0.025. Albumin 3.4. Urine shows a large leukocyte esterase, 20-40 wbc's. Chest x-ray with mild CHF. EKG negative for ischemia. FINAL IMPRESSION: 1. Congestive heart failure, acute on chronic exacerbation. 2. Coronary artery disease, 3-vessel disease, not a candidate for revascularization. Medical management. 3. Recurrent urinary tract infections. 4. Chronic kidney disease stage 3. 5. Insulin-dependent diabetes. 6. Breast carcinoma, left mastectomy. 7. History of hip fracture. 8. Hypertension. 9. Hyperlipidemia. 10. Hypothyroidism. PLAN: At this time, was admit to hospital. Titrate chronic systolic heart failure with IV Bumex. Monitor electrolytes. Cardiology is consulted. I think last echo shows 25% ejection fraction, and the patient also has elevated D-dimer. We will give Lovenox 1 dose, scheduled for a V/Q scan. JAMES CORCORAN MD DR: ADRIANA/liang JOB#: [id number] / [id number]
[2018-11-30 11:00] VITALS: BP 149/64
[2018-11-30] MEDS: IPRATRPIUM/ALBUTEROL 0.5/2.5MG 3 ML NEBU. NEB SCH ×3 (11:04→20:50)
--- NOTE | 2018-11-30 12:24 | RAD ---
Ventilation/perfusion lung scan, 11/30/2018: HISTORY: Shortness of breath, elevated d-dimer The ventilation study was performed utilizing 14.7 mCi of xenon-133. There is mildly heterogeneous activity in the lungs. There is fairly good washout of the xenon from both lungs. Perfusion imaging was performed utilizing 5.4 mCi of technetium 99m MAA. A similar pattern of activity is present in the lungs. No segmental or significant unmatched perfusion defects are seen. IMPRESSION: There are no VQ findings to suggest pulmonary emboli. Electronically signed by: Wil Escudero MD (11/30/2018 12:21 PM) [facility]
--- NOTE | 2018-11-30 12:33 | PDOC2 ---
CARDIAC CONSULT DATE OF CONSULT Date of Consult DATE: 11/30/18 TIME: 12:28 REASON FOR CONSULT Reason for Consult: CAD CHF REFERRING PHYSICIAN Referring Physician: Dr. Mcdonough SOURCE Source: Chart review, Patient HISTORY OF PRESENT ILLNESS HISTORY OF PRESENT ILLNESS This is a 88 yo female who presented secondary to weakness, fatigue, and shortness of breath. Daughter reports she has been tired/weak for the last couple of days. Has had LE edema. More short of breath the day of arrival. No chest pain, palpitations, dizziness, diaphoresis, or nausea/vomiting. Reports compliance with meds. PAST MEDICAL HISTORY Past Medical History Cardiovascular: CAD, CHF, HTN, Hyperlipidemia, Other ((3 vessel - considered not a surgical candidate; family declined Impella assisted PCI), CHF (chronic systolic), HTN, PA (NSTEMI - 08/2016), Hyperlipidemia, Other (PAD with previous bilateral LE bypass)) Pulmonary: No pertinent hx CENTRAL NERVOUS SYSTEM: Other (traumatic SAH) GI: Other (C-diff) Heme/Onc: Anemia NOS, Cancer (breast) Psych: Anxiety, Depression Musculoskeletal: Osteoarthritis Rheumatologic: No pertinent hx Infectious disease: Other (C-DIff) ENT: Other (glaucoma) Renal/: UTI, CKD Endocrine: Diabetes PAST SURGICAL HISTORY Past Surgical History Mastectomy (left), Total hip replacement (left - after mechanical fall), Other (bilateral LE bypass graft; toe amputations bilaterally) Total hip replacement (left hemiarthroplasty) FAMILY HISTORY Family History noncontributory SOCIAL HISTORY Social History Smoke: No ALCOHOL: none Drugs: None Lives: with Family CURRENT MEDICATIONS CURRENT MEDICATIONS Current Medications Medications (Trade) Dose Ordered Sig/Kyle Route PRN Reason Start Time Stop Time Status Last Admin Dose Admin Albuterol/ Ipratropium (Duoneb) 3 ml 1X ONCE NEB 11/29/18 18:45 11/29/18 18:46 DC 11/29/18 18:55 Dexamethasone Sodium Phosphate (Decadron) 10 mg 1X ONCE IV 11/29/18 18:45 11/29/18 18:46 DC 11/29/18 18:51 Aspirin (Gege Aspirin) 325 mg 1X ONCE PO 11/29/18 18:45 11/29/18 18:46 DC 11/29/18 18:45 Labetalol HCl (Normodyne Iv Push) 10 mg 1X ONCE IVP 11/29/18 19:15 11/29/18 19:16 DC 11/29/18 19:24 Bumetanide (Bumex) 0.5 mg 1X ONCE IV 11/29/18 20:45 11/29/18 20:46 DC 11/29/18 20:57 Ceftriaxone Sodium (Rocephin) 1 gm 1X ONCE IVP 11/29/18 20:45 11/29/18 20:46 DC 11/29/18 21:06 Insulin Human Lispro (HumaLOG) 0-5 UNITS TIDWMEALS SQ 11/30/18 08:00 11/30/18 09:48 DC 11/30/18 08:27 Enoxaparin Sodium (Lovenox 60mg Syringe) 60 mg 1X ONCE SQ 11/29/18 21:00 11/29/18 21:01 DC 11/29/18 21:07 Hydralazine HCl (Apresoline Inj) 10 mg 1X ONCE IVP 11/30/18 08:15 11/30/18 08:16 DC 11/30/18 08:18 Albuterol/ Ipratropium (Duoneb) 3 ml TID NEB 11/30/18 10:00 11/30/18 11:04 ALLERGIES ALLERGIES: Coded Allergies: No Known Medication Allergies (Verified Allergy, Unknown, 08/01/18) ROS Review of System 14 point ROS conducted with pertinent positives noted above in HPI. PHYSICAL EXAM PHYSICAL EXAM General: Alert, Oriented X3, Cooperative, No acute distress HEENT: Mucous membr. moist/pink, Other (JVD) Lungs: Other (basilar crackles) Heart: Regular rate (SR), Other (3/6 systolic murmur to LLS border) Abdomen: Soft, Other (lower abd tenderness) Extremities: No cyanosis, Other (2+ bilateral LE pitting edema) Skin: No breakdown, No significant lesion Psych/Mental Status: Mental status NL, Other (appears tired) MUSCULOSKELETAL: Osteoarthritic changes both hands VITALS VITALS Vital Signs Date Time Temp Pulse Resp B/P (MAP) Pulse Ox O2 Delivery O2 Flow Rate FiO2 11/30/18 11:04 99 Room Air 11/30/18 11:00 97.7 79 16 149/64 (92) 97.7 LABS Lab: Laboratory Tests Test 11/29/18 18:33 11/29/18 18:35 11/29/18 22:47 11/29/18 23:20 Urine Collection Type Unknown Urine Color Yellow Urine Clarity Clear Urine pH 5.0 Urine Specific [place] 1.015 Urine Protein >=300 mg/dL (NEG-TRACE) Urine Glucose (UA) Negative mg/dL (NEG) Urine Ketones (Stick) Negative mg/dL (NEG) Urine Blood Large (NEG) Urine Nitrite Positive (NEG) Urine Bilirubin Negative (NEG) Urine Urobilinogen Dipstick 0.2 mg/dL (0.2 mg/dL) Urine Leukocyte Esterase Large (NEG) Urine RBC 1-2 /HPF (0-2) Urine WBC 20-40 /HPF (0-4) Urine Squamous Epithelial Cells Mod /LPF Urine Bacteria Many /HPF (0-FEW) White Blood Count 5.7 x10^3/uL (4.0-11.0) Red Blood Count 3.39 x10^6/uL (3.50-5.40) Hemoglobin 9.6 g/dL (12.0-15.5) Hematocrit 28.7 % (36.0-47.0) Mean Corpuscular Volume 85 fL (79-100) Mean Corpuscular Hemoglobin 28 pg (25-35) Mean Corpuscular Hemoglobin Concent 33 g/dL (31-37) Red Cell Distribution Width 14.9 % (11.5-14.5) Platelet Count 141 x10^3/uL (140-400) Neutrophils (%) (Auto) 70 % (31-73) Lymphocytes (%) (Auto) 21 % (24-48) Monocytes (%) (Auto) 6 % (0-9) Eosinophils (%) (Auto) 2 % (0-3) Basophils (%) (Auto) 1 % (0-3) Neutrophils # (Auto) 4.0 x10^3uL (1.8-7.7) Lymphocytes # (Auto) 1.2 x10^3/uL (1.0-4.8) Monocytes # (Auto) 0.4 x10^3/uL (0.0-1.1) Eosinophils # (Auto) 0.1 x10^3/uL (0.0-0.7) Basophils # (Auto) 0.0 x10^3/uL (0.0-0.2) D-Dimer (Kristina) 0.91 ug/mlFEU (0.00-0.50) Sodium Level 139 mmol/L (136-145) Potassium Level 5.2 mmol/L (3.5-5.1) Chloride Level 106 mmol/L (98-107) Carbon Dioxide Level 24 mmol/L (21-32) Anion Gap 9 (6-14) Blood Urea Nitrogen 54 mg/dL (7-20) Creatinine 1.6 mg/dL (0.6-1.0) Estimated GFR (Cockcroft-Gault) 30.6 BUN/Creatinine Ratio 34 (6-20) Glucose Level 147 mg/dL (70-99) Lactic Acid Level 0.9 mmol/L (0.4-2.0) Calcium Level 8.7 mg/dL (8.5-10.1) Magnesium Level 2.6 mg/dL (1.8-2.4) Total Bilirubin 0.3 mg/dL (0.2-1.0) Aspartate Amino Transf (AST/SGOT) 20 U/L (15-37) Alanine Aminotransferase (ALT/SGPT) 27 U/L (14-59) Alkaline Phosphatase 136 U/L (46-116) Creatine Kinase 127 U/L (26-192) Creatine Kinase MB (Mass) 3.0 ng/mL (0.0-3.6) Creatine Kinase MB Relative Index 2.4 % (0-4) Troponin I Quantitative 0.025 ng/mL (0.000-0.055) 0.021 ng/mL (0.000-0.055) RW-Xyl-Z-Type Natriuretic Peptide 93607 pg/mL (0-449) Total Protein 6.8 g/dL (6.4-8.2) Albumin 3.4 g/dL (3.4-5.0) Albumin/Globulin Ratio 1.0 (1.0-1.7) Glucose (Fingerstick) 117 mg/dL (70-99) Test 11/30/18 04:30 11/30/18 07:28 Troponin I Quantitative 0.017 ng/mL (0.000-0.055) Glucose (Fingerstick) 264 mg/dL (70-99) ECHOCARDIOGRAM ECHOCARDIOGRAM <Conclusion> The systolic function is mild moderately impaired. The Ejection Fraction is 40%. Septal motion consistent with conduction defect. There is otherwise global hypokinesis. Doppler and Color Flow revealed trace tricuspid regurgitation. There is moderate pulmonary hypertension. PASP is 54mmHg. DATE: 01/18/18 1508 ASSESSMENT/PLAN ASSESSMENT/PLAN 1. Acute on chronic systolic CHF; likely induced by labile BP. 2. Accelerated HTN; labile 3. CAD/3VD; has declined intervention multiple times in the past. Known for d iffused disease as well. Clinically stable. CP free. Daughter confirms desire for medical management 4. Ischemic cardiomyopathy; LVEF 40% 5. CKD; CR stable 6. Diabetes, II 7. Hyperlipidemia Recommendations Diuresis with monitoring of renal function BP control Resume home therapy and titrate as warranted Continue secondary prevention measures. Maintain conservative measures. Daily wt. Monitor I and O. LEVAR ELLIOTT APRN November 30, 2018 12:33
[2018-11-30] MEDS: ENOXAPARIN 30 MG/0.3 ML SYRINGE. SQ SCH (12:48)
[2018-11-30] MEDS: ISOSORBIDE MONONITRATE ER 30 MG TAB.ER.24H PO SCH (12:49)
[2018-11-30] MEDS: CALCIUM CARB/VIT D3 500/200 TABLET. PO SCH (12:49)
[2018-11-30] MEDS: CLOPIDOGREL BISULFATE 75 MG TABLET PO SCH (12:49)
[2018-11-30] MEDS: CARVEDILOL 12.5 MG TABLET. PO SCH ×2 (12:50→17:09)
[2018-11-30] MEDS: LOSARTAN POTASSIUM 50 MG TABLET. PO SCH (12:50)
[2018-11-30] MEDS: DICLOFENAC SODIUM 1% TOPICAL GEL 100GM TUBE. TP SCH ×4 (12:50→20:59)
[2018-11-30] MEDS: cefTRIAXone IV Push 1 GM VIAL. IVP SCH (12:53)
--- NOTE | 2018-11-30 12:53 | NUR ---
SS following for discharge planning. SS reviewed pt chart. Pt is from home with daughter and is currently on room air. Pt was previously on services with [facility], ; fax [phone]. SS will continue to follow for discharge planning.
[2018-11-30] MEDS: INSULIN LISPRO 300 UNITS/3 ML INSULN.PEN. SQ SCH ×4 (14:22→17:16)
--- NOTE | 2018-11-30 15:36 | CARD ---
MR#: [id number] Date of Study: 11/30/2018 Ordering Physician: LEVAR ELLIOTT, Referring Physician: JAMES CORCORAN Tech: Soledad Capone, [facility] APPROVED REPORT EXAM: Two-dimensional and M-mode echocardiogram with Doppler and color Doppler. Other Information Quality : Average Rhythm : Other INDICATION Congestive Heart Failure 2D DIMENSIONS RVDd3.0 (2.9-3.5cm)Left Atrium(2D)3.5 (1.6-4.0cm) IVSd0.9 (0.7-1.1cm)Aortic Root(2D)3.1 (2.0-3.7cm) LVDd5.2 (3.9-5.9cm)LVOT Diameter2.0 (1.8-2.4cm) PWd0.9 (0.7-1.1cm)LVDs3.9 (2.5-4.0cm) FS (%) 24.2 %SV61.2 ml LVEF(%)47.8 (>50%) Aortic Valve AoV Peak Jacobo.204.6cm/sAoV VTI42.6cm AO Peak GR.16.7mmHgLVOT Peak Jacobo.98.7cm/s AO Mean GR.8mmHgAVA (VMAX)1.52cm2 MARITZA (VTI)1.60cm2 Mitral Valve MV E Fjepumcj52.1cm/sMV E Peak Gr.12mmHg MV DECEL [id number] A Jfiakycz934.6cm/s MV E Mean Gr.4mmHgE/A Ratio0.5 Pulmonary Valve PV Peak Qrjhjsfs00.6cm/s Tricuspid Valve TR P. [id number] [id number] TR Peak Gr.45haBbVHJV24ovWe LEFT VENTRICLE The left ventricle is normal size. There is normal left ventricular wall thickness. Left ventricle sy stolic function is mildly impaired. The Ejection Fraction is 45-50%. Septal motion consistent with co nduction abnormality. Transmitral Doppler flow pattern is Grade I-abnormal relaxation pattern. RIGHT VENTRICLE The right ventricle is normal size. There is normal right ventricular wall thickness. The right ventr icular systolic function is normal. ATRIA The left atrium size is normal. The right atrium size is normal. The interatrial septum is intact wit h no evidence for an atrial septal defect or patent foramen ovale as noted on 2-D or Doppler imaging. AORTIC VALVE The aortic valve is mildly calcified. The aortic valve is trileaflet. Doppler and Color Flow revealed no significant aortic regurgitation. There is no significant aortic valvular stenosis. There is no a ortic valvular vegetation. MITRAL VALVE Mitral annular calcification is moderate. There is no evidence of mitral valve prolapse. There is no significant mitral valve stenosis. Doppler and Color-flow revealed trace to mild mitral regurgitation . TRICUSPID VALVE The tricuspid valve is normal in structure and function. Doppler and Color Flow revealed trace tricus pid regurgitation. There is moderate pulmonary hypertension. The PA pressure was estimated at 42 mmHg . There is no tricuspid valve prolapse or vegetation. There is no tricuspid valve stenosis. PULMONIC VALVE The pulmonic valve is not well visualized. GREAT VESSELS The aortic root is normal in size. The ascending aorta is normal in size. The IVC is normal in size a nd collapses >50% with inspiration. PERICARDIAL EFFUSION There is no evidence of significant pericardial effusion. Critical Notification Critical Value: No <Conclusion> Left ventricle systolic function is mildly impaired. The Ejection Fraction is 45-50%. Septal motion consistent with conduction abnormality. Doppler and Color Flow revealed trace tricuspid regurgitation. There is moderate pulmonary hypertensi on. The PA pressure was estimated at 42 mmHg. Signed by : Manuel Ellis, Electronically Approved : 11/30/2018 15:36:23
[2018-11-30 15:45] VITALS: BP 119/49
[2018-11-30] MEDS: ACETAMINOPHEN/CODEINE 300/30MG TABLET. PO PRN (19:21)
[2018-11-30 19:30] VITALS: BP 131/44
[2018-11-30] MEDS: DEXTROSE 50% 25 GM / 50ML DISP.SYRIN. IV PRN (20:56)
[2018-11-30] MEDS: ATORVASTATIN CALCIUM 20 MG TABLET PO SCH (20:59)
[2018-11-30] MEDS ORDERED: FAMOTIDINE 20 MG TABLET. PO PRN (21:00)
[2018-11-30] MEDS ORDERED: INSULIN GLARGINE 300 UNITS/3 ML INSULN.PEN. SQ SCH ×2 (21:00)
[2018-11-30 23:35] VITALS: BP 134/54
[2018-12-01] MEDS: DEXTROSE 50% 25 GM / 50ML DISP.SYRIN. IV PRN (00:08)
[2018-12-01 03:00] VITALS: BP 147/69
[2018-12-01 05:10] LABS: BASO % 1 % (0-3); EOS # 0.1 x10^3/uL (0.0-0.7); EOS % 2 % (0-3); HEMATOCRIT 24.4 % (36.0-47.0); HEMOGLOBIN 8.2 g/dL (12.0-15.5); LYMPH # 1.6 x10^3/uL (1.0-4.8); LYMPH % 32 % (24-48); MEAN CORPUSCULAR HEMOGLOBIN 28 pg (25-35); MEAN CORPUSCULAR HGB CONC 34 g/dL (31-37); MEAN CORPUSCULAR VOLUME 85 fL (79-100); MONO # 0.4 x10^3/uL (0.0-1.1); MONO % 7 % (0-9); NEUT % 59 % (31-73); PLATELET COUNT 114 x10^3/uL (140-400); RED BLOOD COUNT 2.89 x10^6/uL (3.50-5.40); RED CELL DISTRIBUTION WIDTH 15.1 % (11.5-14.5); WHITE BLOOD COUNT 5.1 x10^3/uL (4.0-11.0)
[2018-12-01 05:40] LABS: CALCIUM 8.4 mg/dL (8.5-10.1); CREATININE 1.9 mg/dL (0.6-1.0); GFR 25.1
[2018-12-01 07:00] VITALS: BP 176/93
[2018-12-01] MEDS: IPRATRPIUM/ALBUTEROL 0.5/2.5MG 3 ML NEBU. NEB SCH ×3 (07:50→20:42)
[2018-12-01] MEDS: INSULIN LISPRO 300 UNITS/3 ML INSULN.PEN. SQ SCH ×6 (08:00→17:22)
[2018-12-01] MEDS: CLOPIDOGREL BISULFATE 75 MG TABLET PO SCH (08:33)
[2018-12-01] MEDS: DOCUSATE SODIUM 100 MG CAPSULE. PO SCH (08:33)
[2018-12-01] MEDS: CALCIUM CARB/VIT D3 500/200 TABLET. PO SCH (08:33)
[2018-12-01] MEDS: LACTOBACILLUS RHAMNOSUS GG 1 CAPSULE. PO SCH ×2 (08:33→21:15)
[2018-12-01] MEDS: PREGABALIN 50 MG CAPSULE PO SCH ×2 (08:33→21:16)
[2018-12-01] MEDS: ISOSORBIDE MONONITRATE ER 30 MG TAB.ER.24H PO SCH (08:34)
[2018-12-01] MEDS: BUMETANIDE 1 MG TABLET. PO SCH (08:34)
[2018-12-01] MEDS: CARVEDILOL 12.5 MG TABLET. PO SCH ×2 (08:34→17:20)
[2018-12-01] MEDS: DICLOFENAC SODIUM 1% TOPICAL GEL 100GM TUBE. TP SCH ×5 (08:34→21:16)
[2018-12-01] MEDS: LOSARTAN POTASSIUM 50 MG TABLET. PO SCH (08:34)
[2018-12-01 11:00] VITALS: BP 109/58
--- NOTE | 2018-12-01 11:03 | PDOC ---
IM PROGRESS NOTES- Subjective Subjective She had hypoglycemia yesterday evening. No complaints of dyspnea or dizziness this morning. Eating better. Objective Vitals Vital Signs Date Time Temp Pulse Resp B/P (MAP) Pulse Ox O2 Delivery O2 Flow Rate FiO2 12/01/18 08:34 75 176/93 12/01/18 08:00 Room Air 12/01/18 07:51 98 12/01/18 07:00 97.3 22 97.3 Input & Output Intake and Output 12/01/18 07:00 Intake Total 400 ml Output Total 100 ml Balance 300 ml Intake Oral 400 ml Output Urine Total 100 ml # Voids 7 # Bowel Movements 6 Physical Exam Physical Exam General appearance - alert,well appearing, and in no distress and oriented to person, place, and time Mental Status - alert, oriented to person, place, and time, affect appropriate to mood Head - normal Chest - clear to auscultation, no wheezes, rales or rhonchi, symmetric air entry Heart - S1 and S2 normal Abdomen - soft, nontender, nondistended, no masses or organomegaly Neurological - alert and oriented Musculoskeletal - no muscular tenderness noted Extremities - no pedal edema Skin - warm and dry Labs Laboratory Tests Test 11/29/18 18:33 11/29/18 18:35 11/29/18 22:47 11/29/18 23:20 Urine Collection Type Unknown Urine Color Yellow Urine Clarity Clear Urine pH 5.0 Urine Specific [place] 1.015 Urine Protein >=300 mg/dL (NEG-TRACE) Urine Glucose (UA) Negative mg/dL (NEG) Urine Ketones (Stick) Negative mg/dL (NEG) Urine Blood Large (NEG) Urine Nitrite Positive (NEG) Urine Bilirubin Negative (NEG) Urine Urobilinogen Dipstick 0.2 mg/dL (0.2 mg/dL) Urine Leukocyte Esterase Large (NEG) Urine RBC 1-2 /HPF (0-2) Urine WBC 20-40 /HPF (0-4) Urine Squamous Epithelial Cells Mod /LPF Urine Bacteria Many /HPF (0-FEW) White Blood Count 5.7 x10^3/uL (4.0-11.0) Red Blood Count 3.39 x10^6/uL (3.50-5.40) Hemoglobin 9.6 g/dL (12.0-15.5) Hematocrit 28.7 % (36.0-47.0) Mean Corpuscular Volume 85 fL (79-100) Mean Corpuscular Hemoglobin 28 pg (25-35) Mean Corpuscular Hemoglobin Concent 33 g/dL (31-37) Red Cell Distribution Width 14.9 % (11.5-14.5) Platelet Count 141 x10^3/uL (140-400) Neutrophils (%) (Auto) 70 % (31-73) Lymphocytes (%) (Auto) 21 % (24-48) Monocytes (%) (Auto) 6 % (0-9) Eosinophils (%) (Auto) 2 % (0-3) Basophils (%) (Auto) 1 % (0-3) Neutrophils # (Auto) 4.0 x10^3uL (1.8-7.7) Lymphocytes # (Auto) 1.2 x10^3/uL (1.0-4.8) Monocytes # (Auto) 0.4 x10^3/uL (0.0-1.1) Eosinophils # (Auto) 0.1 x10^3/uL (0.0-0.7) Basophils # (Auto) 0.0 x10^3/uL (0.0-0.2) D-Dimer (Kristina) 0.91 ug/mlFEU (0.00-0.50) Sodium Level 139 mmol/L (136-145) Potassium Level 5.2 mmol/L (3.5-5.1) Chloride Level 106 mmol/L (98-107) Carbon Dioxide Level 24 mmol/L (21-32) Anion Gap 9 (6-14) Blood Urea Nitrogen 54 mg/dL (7-20) Creatinine 1.6 mg/dL (0.6-1.0) Estimated GFR (Cockcroft-Gault) 30.6 BUN/Creatinine Ratio 34 (6-20) Glucose Level 147 mg/dL (70-99) Lactic Acid Level 0.9 mmol/L (0.4-2.0) Calcium Level 8.7 mg/dL (8.5-10.1) Magnesium Level 2.6 mg/dL (1.8-2.4) Total Bilirubin 0.3 mg/dL (0.2-1.0) Aspartate Amino Transf (AST/SGOT) 20 U/L (15-37) Alanine Aminotransferase (ALT/SGPT) 27 U/L (14-59) Alkaline Phosphatase 136 U/L (46-116) Creatine Kinase 127 U/L (26-192) Creatine Kinase MB (Mass) 3.0 ng/mL (0.0-3.6) Creatine Kinase MB Relative Index 2.4 % (0-4) Troponin I Quantitative 0.025 ng/mL (0.000-0.055) 0.021 ng/mL (0.000-0.055) FN-Asa-D-Type Natriuretic Peptide 66210 pg/mL (0-449) Total Protein 6.8 g/dL (6.4-8.2) Albumin 3.4 g/dL (3.4-5.0) Albumin/Globulin Ratio 1.0 (1.0-1.7) Glucose (Fingerstick) 117 mg/dL (70-99) Test 11/30/18 04:30 11/30/18 07:28 11/30/18 12:53 11/30/18 17:00 Troponin I Quantitative 0.017 ng/mL (0.000-0.055) Glucose (Fingerstick) 264 mg/dL (70-99) 277 mg/dL (70-99) 200 mg/dL (70-99) Test 11/30/18 20:53 11/30/18 21:20 12/01/18 00:03 12/01/18 00:19 Glucose (Fingerstick) 31 mg/dL (70-99) 144 mg/dL (70-99) 67 mg/dL (70-99) 147 mg/dL (70-99) Test 12/01/18 04:35 12/01/18 05:31 12/01/18 07:30 White Blood Count 5.1 x10^3/uL (4.0-11.0) Red Blood Count 2.89 x10^6/uL (3.50-5.40) Hemoglobin 8.2 g/dL (12.0-15.5) Hematocrit 24.4 % (36.0-47.0) Mean Corpuscular Volume 85 fL (79-100) Mean Corpuscular Hemoglobin 28 pg (25-35) Mean Corpuscular Hemoglobin Concent 34 g/dL (31-37) Red Cell Distribution Width 15.1 % (11.5-14.5) Platelet Count 114 x10^3/uL (140-400) Neutrophils (%) (Auto) 59 % (31-73) Lymphocytes (%) (Auto) 32 % (24-48) Monocytes (%) (Auto) 7 % (0-9) Eosinophils (%) (Auto) 2 % (0-3) Basophils (%) (Auto) 1 % (0-3) Neutrophils # (Auto) 3.0 x10^3uL (1.8-7.7) Lymphocytes # (Auto) 1.6 x10^3/uL (1.0-4.8) Monocytes # (Auto) 0.4 x10^3/uL (0.0-1.1) Eosinophils # (Auto) 0.1 x10^3/uL (0.0-0.7) Basophils # (Auto) 0.0 x10^3/uL (0.0-0.2) Sodium Level 142 mmol/L (136-145) Potassium Level 5.0 mmol/L (3.5-5.1) Chloride Level 109 mmol/L (98-107) Carbon Dioxide Level 22 mmol/L (21-32) Anion Gap 11 (6-14) Blood Urea Nitrogen 68 mg/dL (7-20) Creatinine 1.9 mg/dL (0.6-1.0) Estimated GFR (Cockcroft-Gault) 25.1 Glucose Level 118 mg/dL (70-99) Calcium Level 8.4 mg/dL (8.5-10.1) Glucose (Fingerstick) 135 mg/dL (70-99) 153 mg/dL (70-99) Laboratory Tests Test 11/30/18 12:53 11/30/18 17:00 11/30/18 20:53 11/30/18 21:20 Glucose (Fingerstick) 277 mg/dL (70-99) 200 mg/dL (70-99) 31 mg/dL (70-99) 144 mg/dL (70-99) Test 12/01/18 00:03 12/01/18 00:19 12/01/18 04:35 12/01/18 05:31 Glucose (Fingerstick) 67 mg/dL (70-99) 147 mg/dL (70-99) 135 mg/dL (70-99) White Blood Count 5.1 x10^3/uL (4.0-11.0) Red Blood Count 2.89 x10^6/uL (3.50-5.40) Hemoglobin 8.2 g/dL (12.0-15.5) Hematocrit 24.4 % (36.0-47.0) Mean Corpuscular Volume 85 fL (79-100) Mean Corpuscular Hemoglobin 28 pg (25-35) Mean Corpuscular Hemoglobin Concent 34 g/dL (31-37) Red Cell Distribution Width 15.1 % (11.5-14.5) Platelet Count 114 x10^3/uL (140-400) Neutrophils (%) (Auto) 59 % (31-73) Lymphocytes (%) (Auto) 32 % (24-48) Monocytes (%) (Auto) 7 % (0-9) Eosinophils (%) (Auto) 2 % (0-3) Basophils (%) (Auto) 1 % (0-3) Neutrophils # (Auto) 3.0 x10^3uL (1.8-7.7) Lymphocytes # (Auto) 1.6 x10^3/uL (1.0-4.8) Monocytes # (Auto) 0.4 x10^3/uL (0.0-1.1) Eosinophils # (Auto) 0.1 x10^3/uL (0.0-0.7) Basophils # (Auto) 0.0 x10^3/uL (0.0-0.2) Sodium Level 142 mmol/L (136-145) Potassium Level 5.0 mmol/L (3.5-5.1) Chloride Level 109 mmol/L (98-107) Carbon Dioxide Level 22 mmol/L (21-32) Anion Gap 11 (6-14) Blood Urea Nitrogen 68 mg/dL (7-20) Creatinine 1.9 mg/dL (0.6-1.0) Estimated GFR (Cockcroft-Gault) 25.1 Glucose Level 118 mg/dL (70-99) Calcium Level 8.4 mg/dL (8.5-10.1) Test 12/01/18 07:30 Glucose (Fingerstick) 153 mg/dL (70-99) Meds Current Medications Atorvastatin Calcium (Lipitor) 20 mg QHS PO Last administered on 11/30/18at 20:59; Start 11/30/18 at 21:00 Bumetanide (Bumex) 1 mg DAILY PO Last administered on 12/01/18at 08:34; Start 12/01/18 at 09:00 Ceftriaxone Sodium (Rocephin) 1 gm Q24H IVP Last administered on 11/30/18at 12:53; Start 11/30/18 at 16:00 Famotidine (Pepcid) 40 mg PRN DAILY PRN PO HEARTBURN.; Start 11/30/18 at 21:00 Insulin Glargine (Lantus) 20 units QHS SQ ; Start 11/30/18 at 21:00; Stop 11/30/18 at 21:33; Status DC Insulin Glargine (Lantus) 35 units QHS SQ ; Start 11/30/18 at 21:00; Stop 11/30/18 at 21:00; Status DC Insulin Human Lispro (HumaLOG) 0-7 UNITS TIDWMEALS SQ Last administered on 12/01/18at 08:41; Start 11/30/18 at 12:00 Insulin Human Lispro (HumaLOG) 6 units TIDWMEALS SQ ; Start 12/01/18 at 08:00 Insulin Human Lispro (HumaLOG) 10 units TIDWMEALS SQ Last administered on 11/30/18at 17:15; Start 11/30/18 at 12:00; Stop 11/30/18 at 21:34; Status DC Insulin Human Lispro (HumaLOG) 15 units TIDWMEALS SQ ; Start 11/30/18 at 12:00; Stop 11/30/18 at 12:00; Status DC Lactobacillus Rhamnosus (Culturelle) 1 cap BID PO Last administered on 12/01/18at 08:33; Start 12/01/18 at 09:00 Assessment Assessment 1. Congestive heart failure, acute on chronic exacerbation. 2. Coronary artery disease, 3-vessel disease, not a candidate for revascularization. Medical management. 3. Recurrent urinary tract infections. 4. Chronic kidney disease stage 3. 5. Insulin-dependent diabetes. 6. Breast carcinoma, left mastectomy. 7. History of hip fracture. 8. Hypertension. 9. Hyperlipidemia. 10. Hypothyroidism. PLAN: At this time, was admit to hospital. Titrate chronic systolic heart failure with IV Bumex. Monitor electrolytes. Cardiology is consulted. I think last echo shows 25% ejection fraction, and the patient also has elevated D-dimer. We will give Lovenox 1 dose, scheduled for a V/Q scan. Hypoglycemia- glucose 31 yesterday evening. Blood sugar is 135 this morning. Insulin was held. Discussed with daughter. She'll use her on average about 5 units of Humalog 3 times a day and the 25-30 units of Lantus at bedtime. She ate well this morning so I will restart the Lantus at about 15 units subcutaneous daily at bedtime and use low-dose sliding scale insulin. Lung V/Q scan is negative for pulmonary emboli. Plan Plan For more details regarding further plans, please refer to the orders. XENA MALAGON MD Dec 01, 2018 11:03
[2018-12-01] MEDS: ENOXAPARIN 30 MG/0.3 ML SYRINGE. SQ SCH (11:32)
--- NOTE | 2018-12-01 14:13 | PDOC ---
PROGRESS NOTES Subjective Subjective Patient seen and examined She looks and feels better today. Objective Objective Vital Signs Date Time Temp Pulse Resp B/P (MAP) Pulse Ox O2 Delivery O2 Flow Rate FiO2 12/01/18 12:14 Room Air 12/01/18 11:00 97.6 69 21 109/58 (75) 96 97.6 Intake and Output 12/01/18 07:00 Intake Total 400 ml Output Total 100 ml Balance 300 ml Intake Oral 400 ml Output Urine Total 100 ml # Voids 7 # Bowel Movements 6 Physical Exam Abdomen: Normal bowel sounds Heart: Regular rate General: mild distress Lungs: Other (mildly decreased breath sounds) Assessment Assessment Problems Medical Problems: (1) Elevated d-dimer Status: Acute (2) Urinary tract infection Status: Acute ASSESSMENT/PLAN 1. Acute on chronic systolic CHF; improved today. Updated echo shows an ejection fraction of 45-50% with moderate pulmonary artery hypertension with CPAP of 42 mmHg. Improving on present treatment. 2. Accelerated HTN; also improved. Continue present treatment. 3. CAD/3VD; has declined intervention multiple times in the past. Known for diffused disease as well. Clinically stable. CP free. 4. Ischemic cardiomyopathy; LVEF now at 45 to 50%. 5. CKD; monitoring lab. 6. Diabetes, II 7. Hyperlipidemia 8. Elevated d-dimer with low probability VQ scan. Comment Review of Relevant I have reviewed the following items kathleen (where applicable) has been applied. Labs Laboratory Tests Test 11/29/18 18:33 11/29/18 18:35 11/29/18 22:47 11/29/18 23:20 Urine Collection Type Unknown Urine Color Yellow Urine Clarity Clear Urine pH 5.0 Urine Specific [place] 1.015 Urine Protein >=300 mg/dL (NEG-TRACE) Urine Glucose (UA) Negative mg/dL (NEG) Urine Ketones (Stick) Negative mg/dL (NEG) Urine Blood Large (NEG) Urine Nitrite Positive (NEG) Urine Bilirubin Negative (NEG) Urine Urobilinogen Dipstick 0.2 mg/dL (0.2 mg/dL) Urine Leukocyte Esterase Large (NEG) Urine RBC 1-2 /HPF (0-2) Urine WBC 20-40 /HPF (0-4) Urine Squamous Epithelial Cells Mod /LPF Urine Bacteria Many /HPF (0-FEW) White Blood Count 5.7 x10^3/uL (4.0-11.0) Red Blood Count 3.39 x10^6/uL (3.50-5.40) Hemoglobin 9.6 g/dL (12.0-15.5) Hematocrit 28.7 % (36.0-47.0) Mean Corpuscular Volume 85 fL (79-100) Mean Corpuscular Hemoglobin 28 pg (25-35) Mean Corpuscular Hemoglobin Concent 33 g/dL (31-37) Red Cell Distribution Width 14.9 % (11.5-14.5) Platelet Count 141 x10^3/uL (140-400) Neutrophils (%) (Auto) 70 % (31-73) Lymphocytes (%) (Auto) 21 % (24-48) Monocytes (%) (Auto) 6 % (0-9) Eosinophils (%) (Auto) 2 % (0-3) Basophils (%) (Auto) 1 % (0-3) Neutrophils # (Auto) 4.0 x10^3uL (1.8-7.7) Lymphocytes # (Auto) 1.2 x10^3/uL (1.0-4.8) Monocytes # (Auto) 0.4 x10^3/uL (0.0-1.1) Eosinophils # (Auto) 0.1 x10^3/uL (0.0-0.7) Basophils # (Auto) 0.0 x10^3/uL (0.0-0.2) D-Dimer (Kristina) 0.91 ug/mlFEU (0.00-0.50) Sodium Level 139 mmol/L (136-145) Potassium Level 5.2 mmol/L (3.5-5.1) Chloride Level 106 mmol/L (98-107) Carbon Dioxide Level 24 mmol/L (21-32) Anion Gap 9 (6-14) Blood Urea Nitrogen 54 mg/dL (7-20) Creatinine 1.6 mg/dL (0.6-1.0) Estimated GFR (Cockcroft-Gault) 30.6 BUN/Creatinine Ratio 34 (6-20) Glucose Level 147 mg/dL (70-99) Lactic Acid Level 0.9 mmol/L (0.4-2.0) Calcium Level 8.7 mg/dL (8.5-10.1) Magnesium Level 2.6 mg/dL (1.8-2.4) Total Bilirubin 0.3 mg/dL (0.2-1.0) Aspartate Amino Transf (AST/SGOT) 20 U/L (15-37) Alanine Aminotransferase (ALT/SGPT) 27 U/L (14-59) Alkaline Phosphatase 136 U/L (46-116) Creatine Kinase 127 U/L (26-192) Creatine Kinase MB (Mass) 3.0 ng/mL (0.0-3.6) Creatine Kinase MB Relative Index 2.4 % (0-4) Troponin I Quantitative 0.025 ng/mL (0.000-0.055) 0.021 ng/mL (0.000-0.055) BG-Kio-B-Type Natriuretic Peptide 66424 pg/mL (0-449) Total Protein 6.8 g/dL (6.4-8.2) Albumin 3.4 g/dL (3.4-5.0) Albumin/Globulin Ratio 1.0 (1.0-1.7) Glucose (Fingerstick) 117 mg/dL (70-99) Test 11/30/18 04:30 11/30/18 07:28 11/30/18 12:53 11/30/18 17:00 Troponin I Quantitative 0.017 ng/mL (0.000-0.055) Glucose (Fingerstick) 264 mg/dL (70-99) 277 mg/dL (70-99) 200 mg/dL (70-99) Test 11/30/18 20:53 11/30/18 21:20 12/01/18 00:03 12/01/18 00:19 Glucose (Fingerstick) 31 mg/dL (70-99) 144 mg/dL (70-99) 67 mg/dL (70-99) 147 mg/dL (70-99) Test 12/01/18 04:35 12/01/18 05:31 12/01/18 07:30 12/01/18 11:29 White Blood Count 5.1 x10^3/uL (4.0-11.0) Red Blood Count 2.89 x10^6/uL (3.50-5.40) Hemoglobin 8.2 g/dL (12.0-15.5) Hematocrit 24.4 % (36.0-47.0) Mean Corpuscular Volume 85 fL (79-100) Mean Corpuscular Hemoglobin 28 pg (25-35) Mean Corpuscular Hemoglobin Concent 34 g/dL (31-37) Red Cell Distribution Width 15.1 % (11.5-14.5) Platelet Count 114 x10^3/uL (140-400) Neutrophils (%) (Auto) 59 % (31-73) Lymphocytes (%) (Auto) 32 % (24-48) Monocytes (%) (Auto) 7 % (0-9) Eosinophils (%) (Auto) 2 % (0-3) Basophils (%) (Auto) 1 % (0-3) Neutrophils # (Auto) 3.0 x10^3uL (1.8-7.7) Lymphocytes # (Auto) 1.6 x10^3/uL (1.0-4.8) Monocytes # (Auto) 0.4 x10^3/uL (0.0-1.1) Eosinophils # (Auto) 0.1 x10^3/uL (0.0-0.7) Basophils # (Auto) 0.0 x10^3/uL (0.0-0.2) Sodium Level 142 mmol/L (136-145) Potassium Level 5.0 mmol/L (3.5-5.1) Chloride Level 109 mmol/L (98-107) Carbon Dioxide Level 22 mmol/L (21-32) Anion Gap 11 (6-14) Blood Urea Nitrogen 68 mg/dL (7-20) Creatinine 1.9 mg/dL (0.6-1.0) Estimated GFR (Cockcroft-Gault) 25.1 Glucose Level 118 mg/dL (70-99) Calcium Level 8.4 mg/dL (8.5-10.1) Glucose (Fingerstick) 135 mg/dL (70-99) 153 mg/dL (70-99) 295 mg/dL (70-99) Laboratory Tests Test 11/30/18 17:00 11/30/18 20:53 11/30/18 21:20 12/01/18 00:03 Glucose (Fingerstick) 200 mg/dL (70-99) 31 mg/dL (70-99) 144 mg/dL (70-99) 67 mg/dL (70-99) Test 12/01/18 00:19 12/01/18 04:35 12/01/18 05:31 12/01/18 07:30 Glucose (Fingerstick) 147 mg/dL (70-99) 135 mg/dL (70-99) 153 mg/dL (70-99) White Blood Count 5.1 x10^3/uL (4.0-11.0) Red Blood Count 2.89 x10^6/uL (3.50-5.40) Hemoglobin 8.2 g/dL (12.0-15.5) Hematocrit 24.4 % (36.0-47.0) Mean Corpuscular Volume 85 fL (79-100) Mean Corpuscular Hemoglobin 28 pg (25-35) Mean Corpuscular Hemoglobin Concent 34 g/dL (31-37) Red Cell Distribution Width 15.1 % (11.5-14.5) Platelet Count 114 x10^3/uL (140-400) Neutrophils (%) (Auto) 59 % (31-73) Lymphocytes (%) (Auto) 32 % (24-48) Monocytes (%) (Auto) 7 % (0-9) Eosinophils (%) (Auto) 2 % (0-3) Basophils (%) (Auto) 1 % (0-3) Neutrophils # (Auto) 3.0 x10^3uL (1.8-7.7) Lymphocytes # (Auto) 1.6 x10^3/uL (1.0-4.8) Monocytes # (Auto) 0.4 x10^3/uL (0.0-1.1) Eosinophils # (Auto) 0.1 x10^3/uL (0.0-0.7) Basophils # (Auto) 0.0 x10^3/uL (0.0-0.2) Sodium Level 142 mmol/L (136-145) Potassium Level 5.0 mmol/L (3.5-5.1) Chloride Level 109 mmol/L (98-107) Carbon Dioxide Level 22 mmol/L (21-32) Anion Gap 11 (6-14) Blood Urea Nitrogen 68 mg/dL (7-20) Creatinine 1.9 mg/dL (0.6-1.0) Estimated GFR (Cockcroft-Gault) 25.1 Glucose Level 118 mg/dL (70-99) Calcium Level 8.4 mg/dL (8.5-10.1) Test 12/01/18 11:29 Glucose (Fingerstick) 295 mg/dL (70-99) Medications Current Medications Albuterol/ Ipratropium (Duoneb) 3 ml 1X ONCE NEB Last administered on 11/29/18 18:55; Start 11/29/18 at 18:45; Stop 11/29/18 at 18:46; Status DC Dexamethasone Sodium Phosphate (Decadron) 10 mg 1X ONCE IV Last administered on 11/29/18at 18:51; Start 11/29/18 at 18:45; Stop 11/29/18 at 18:46; Status DC Aspirin (Gege Aspirin) 325 mg 1X ONCE PO Last administered on 11/29/18at 18:45; Start 11/29/18 at 18:45; Stop 11/29/18 at 18:46; Status DC Labetalol HCl (Normodyne Iv Push) 10 mg 1X ONCE IVP Last administered on 11/29/18at 19:24; Start 11/29/18 at 19:15; Stop 11/29/18 at 19:16; Status DC Bumetanide (Bumex) 0.5 mg 1X ONCE IV Last administered on 11/29/18at 20:57; Start 11/29/18 at 20:45; Stop 11/29/18 at 20:46; Status DC Ceftriaxone Sodium (Rocephin) 1 gm 1X ONCE IVP Last administered on 11/29/18at 21:06; Start 11/29/18 at 20:45; Stop 11/29/18 at 20:46; Status DC Acetaminophen (Tylenol) 650 mg PRN Q4HRS PRN PO FEVER; Start 11/29/18 at 20:30; Stop 11/30/18 at 20:29; Status DC Insulin Human Lispro (HumaLOG) 0-5 UNITS TIDWMEALS SQ Last administered on 11/30/18at 08:27; Start 11/30/18 at 08:00; Stop 11/30/18 at 09:48; Status DC Dextrose (Dextrose 50%-Water Syringe) 12.5 gm PRN Q15MIN PRN IV SEE COMMENTS Last administered on 12/01/18at 00:08; Start 11/29/18 at 20:30; Stop 12/01/18 at 09:19; Status DC Enoxaparin Sodium (Lovenox 60mg Syringe) 60 mg 1X ONCE SQ Last administered on 11/29/18at 21:07; Start 11/29/18 at 21:00; Stop 11/29/18 at 21:01; Status DC Hydralazine HCl (Apresoline Inj) 10 mg 1X ONCE IVP Last administered on 11/30/18 08:18; Start 11/30/18 at 08:15; Stop 11/30/18 at 08:16; Status DC Acetaminophen/ Codeine Phosphate (Tylenol #3) 1 tab PRN Q12HR PRN PO PAIN Last administered on 11/30/18 19:21; Start 11/30/18 at 09:45 Atorvastatin Calcium (Lipitor) 20 mg QHS PO Last administered on 11/30/18 20:59; Start 11/30/18 at 21:00 Carvedilol (Coreg) 12.5 mg BIDWMEALS PO Last administered on 12/01/18 08:34; Start 11/30/18 at 10:00 Clopidogrel Bisulfate (Plavix) 75 mg DAILY PO Last administered on 12/01/18 08:33; Start 11/30/18 at 10:00 Diclofenac Sodium (Voltaren) 1 opal QID TP Last administered on 12/01/18 11:32; Start 11/30/18 at 10:00 Docusate Sodium (Colace) 100 mg DAILY PO Last administered on 12/01/18 08:33; Start 11/30/18 at 10:00 Albuterol/ Ipratropium (Duoneb) 3 ml TID NEB Last administered on 12/01/18 12:13; Start 11/30/18 at 10:00 Isosorbide Mononitrate (Imdur) 30 mg DAILY PO Last administered on 12/01/18 0 8:34; Start 11/30/18 at 10:00 Levothyroxine Sodium (Synthroid) 100 mcg Fr@0600 PO Last administered on 11/30/18at 12:50; Start 11/30/18 at 10:00 Pregabalin (Lyrica) 50 mg BID PO Last administered on 12/01/18 08:33; Start 11/30/18 at 10:00 Calcium/Vitamin D (Oscal D 500mg/ 200uts) 1 tab DAILY PO Last administered on 12/01/18at 08:33; Start 11/30/18 at 10:00 Famotidine (Pepcid) 40 mg PRN DAILY PRN PO HEARTBURN.; Start 11/30/18 at 21:00 Insulin Glargine (Lantus) 35 units QHS SQ ; Start 11/30/18 at 21:00; Stop 11/30/18 at 21:00; Status DC Insulin Human Lispro (HumaLOG) 15 units TIDWMEALS SQ ; Start 11/30/18 at 12:00; Stop 11/30/18 at 12:00; Status DC Losartan Potassium (Cozaar) 100 mg DAILY PO Last administered on 12/01/18at 08:34; Start 11/30/18 at 10:00 Bumetanide (Bumex) 1 mg DAILY PO Last administered on 12/01/18at 08:34; Start 12/01/18 at 09:00 Bumetanide (Bumex) 0.5 mg 1X ONCE IV Last administered on 11/30/18at 12:49; Start 11/30/18 at 10:00; Stop 11/30/18 at 10:01; Status DC Ceftriaxone Sodium (Rocephin) 1 gm Q24H IVP Last administered on 11/30/18at 12:53; Start 11/30/18 at 16:00 Insulin Glargine (Lantus) 20 units QHS SQ ; Start 11/30/18 at 21:00; Stop 11/30/18 at 21:33; Status DC Insulin Human Lispro (HumaLOG) 10 units TIDWMEALS SQ Last administered on 11/30/18at 17:15; Start 11/30/18 at 12:00; Stop 11/30/18 at 21:34; Status DC Enoxaparin Sodium (Lovenox 30mg Syringe) 30 mg Q24H SQ Last administered on 12/01/18at 11:32; Start 11/30/18 at 10:00 Insulin Human Lispro (HumaLOG) 0-7 UNITS TIDWMEALS SQ Last administered on 12/01/18at 08:41; Start 11/30/18 at 12:00; Stop 12/01/18 at 11:16; Status DC Dextrose (Dextrose 50%-Water Syringe) 12.5 gm PRN Q15MIN PRN IV SEE COMMENTS; Start 11/30/18 at 09:45 Insulin Human Lispro (HumaLOG) 6 units TIDWMEALS SQ Last administered on 12/01/18at 12:29; Start 12/01/18 at 08:00 Lactobacillus Rhamnosus (Culturelle) 1 cap BID PO Last administered on 12/01/18at 08:33; Start 12/01/18 at 09:00 Insulin Human Lispro (HumaLOG) 0-8 UNITS TIDBFRMEAL SQ Last administered on 12/01/18at 12:28; Start 12/01/18 at 11:30 Active Scripts Active Carvedilol (Carvedilol) 12.5 Mg Tablet 12.5 Mg PO BIDWMEALS 30 Days Isosorbide Mononitrate Er (Isosorbide Mononitrate) 30 Mg Tab.er.24h 30 Mg PO DAILY 30 Days Atorvastatin Calcium 20 Mg Tablet 20 Mg PO QHS 30 Days Reported Voltaren (Diclofenac Sodium) 100 Gm Gel..gram. 1 Gm TP QID Ferrous Sulfate 325 Mg Tablet 325 Mg PO DAILY Levothyroxine Sodium 100 Mcg Tablet 1 Tab PO QFR Clopidogrel (Clopidogrel Bisulfate) 75 Mg Tablet 75 Mg PO DAILY Lyrica (Pregabalin) 50 Mg Capsule 1 Cap PO BID Pepcid (Famotidine) 40 Mg Tablet 40 Mg PO DAILY PRN Duoneb 0.5-3(2.5) Mg/3 Ml (Albuterol/Ipratropium) 3 Ml Ampul.neb 3 Ml NEB TID NITROGLYCERIN SubLingual (Nitroglycerin) 0.4 Mg Tab.subl 1 Tab SL UD PRN Tylenol With Codeine #3 Tablet (Acetaminophen/Codeine Phosphate) 1 Each Tablet 1 Tab PO PRN Q12HR PRN Losartan Potassium 100 Mg Tablet 100 Mg PO DAILY Humalog (Insulin Lispro) 100 Unit/1 Ml Cartridge 15 Unit SQ TIDWMEALS Docusate Sodium 100 Mg Capsule 1 Cap PO DAILY Calcium + Vitamin D Tablet (Calcium Carbonate/Vitamin D3) 1 Each Tablet 1 Each PO DAILY Lantus (Insulin Glargine,Hum.rec.anlog) 100 Unit/1 Ml Vial 35 Unit SQ HS Synthroid (Levothyroxine Sodium) 50 Mcg Tablet 1 Tab PO DAILY06 Vitals/I & O Vital Sign - Last 24 Hours 11/30/18 11/30/18 11/30/18 11/30/18 15:37 15:45 17:09 19:21 Temp 99.1 99.1 Pulse 75 75 Resp 16 20 B/P (MAP) 119/49 (72) 126/58 Pulse Ox 97 O2 Delivery Room Air Room Air Room Air 11/30/18 11/30/18 11/30/18 11/30/18 19:30 19:44 20:49 20:59 Temp 98.0 98.0 Pulse 62 Resp 22 20 B/P (MAP) 131/44 (73) Pulse Ox 99 98 O2 Delivery Room Air Room Air Room Air Room Air 11/30/18 12/01/18 12/01/18 12/01/18 23:35 03:00 07:00 07:51 Temp 98.2 98.0 97.3 98.2 98.0 97.3 Pulse 69 68 75 Resp 21 22 22 B/P (MAP) 134/54 (80) 147/69 (95) 176/93 (120) Pulse Ox 97 96 93 98 O2 Delivery Room Air Room Air Room Air Room Air 12/01/18 12/01/18 12/01/18 12/01/18 08:00 08:34 08:34 08:34 Pulse 75 75 75 B/P (MAP) 176/93 176/93 176/93 O2 Delivery Room Air 12/01/18 12/01/18 11:00 12:14 Temp 97.6 97.6 Pulse 69 Resp 21 B/P (MAP) 109/58 (75) Pulse Ox 96 O2 Delivery Room Air Room Air Intake and Output 11/30/18 11/30/18 12/01/18 15:00 23:00 07:00 Intake Total 100 ml 300 ml 0 ml Output Total 100 ml Balance 0 ml 300 ml 0 ml DANIELLE JERONIMO MD Dec 01, 2018 14:13
[2018-12-01 15:00] VITALS: BP 126/43
[2018-12-01] MEDS: cefTRIAXone IV Push 1 GM VIAL. IVP SCH (17:20)
[2018-12-01 19:20] VITALS: BP 105/54
[2018-12-01] MEDS: ATORVASTATIN CALCIUM 20 MG TABLET PO SCH (21:15)
[2018-12-01 23:49] VITALS: BP 124/59
[2018-12-02 03:30] VITALS: BP 155/56
[2018-12-02 05:53] LABS: CALCIUM 8.6 mg/dL (8.5-10.1); CREATININE 1.9 mg/dL (0.6-1.0); GFR 25.1; POTASSIUM 5.3 mmol/L (3.5-5.1)
[2018-12-02 06:26] LABS: BASO # 0.1 x10^3/uL (0.0-0.2); BASO % 1 % (0-3); EOS # 0.1 x10^3/uL (0.0-0.7); EOS % 2 % (0-3); HEMATOCRIT 28.2 % (36.0-47.0); HEMOGLOBIN 9.4 g/dL (12.0-15.5); LYMPH # 1.3 x10^3/uL (1.0-4.8); LYMPH % 23 % (24-48); MEAN CORPUSCULAR HEMOGLOBIN 29 pg (25-35); MEAN CORPUSCULAR HGB CONC 33 g/dL (31-37); MEAN CORPUSCULAR VOLUME 86 fL (79-100); MONO # 0.4 x10^3/uL (0.0-1.1); MONO % 7 % (0-9); NEUT # 3.9 x10^3uL (1.8-7.7); NEUT % 68 % (31-73); PLATELET COUNT 152 x10^3/uL (140-400); RED BLOOD COUNT 3.27 x10^6/uL (3.50-5.40); WHITE BLOOD COUNT 5.8 x10^3/uL (4.0-11.0)
[2018-12-02 07:00] VITALS: BP 183/61
[2018-12-02] MEDS: BUMETANIDE 1 MG TABLET. PO SCH (08:28)
[2018-12-02] MEDS: CALCIUM CARB/VIT D3 500/200 TABLET. PO SCH (08:28)
[2018-12-02] MEDS: CLOPIDOGREL BISULFATE 75 MG TABLET PO SCH (08:28)
[2018-12-02] MEDS: LACTOBACILLUS RHAMNOSUS GG 1 CAPSULE. PO SCH ×2 (08:28→21:09)
[2018-12-02] MEDS: DOCUSATE SODIUM 100 MG CAPSULE. PO SCH (08:28)
[2018-12-02] MEDS: CARVEDILOL 12.5 MG TABLET. PO SCH ×2 (08:30→16:33)
[2018-12-02] MEDS: PREGABALIN 50 MG CAPSULE PO SCH ×2 (08:30→21:09)
[2018-12-02] MEDS: LOSARTAN POTASSIUM 50 MG TABLET. PO SCH (08:31)
[2018-12-02] MEDS: ISOSORBIDE MONONITRATE ER 30 MG TAB.ER.24H PO SCH (08:31)
[2018-12-02] MEDS: DICLOFENAC SODIUM 1% TOPICAL GEL 100GM TUBE. TP SCH ×4 (08:32→21:00)
[2018-12-02] MEDS: INSULIN LISPRO 300 UNITS/3 ML INSULN.PEN. SQ SCH ×6 (08:45→17:56)
[2018-12-02] MEDS: IPRATRPIUM/ALBUTEROL 0.5/2.5MG 3 ML NEBU. NEB SCH ×3 (08:50→20:55)
[2018-12-02] MEDS: ENOXAPARIN 30 MG/0.3 ML SYRINGE. SQ SCH (10:23)
--- NOTE | 2018-12-02 10:46 | PDOC ---
IM PROGRESS NOTES- Subjective Subjective She has tingling in her hands. Objective Vitals Vital Signs Date Time Temp Pulse Resp B/P (MAP) Pulse Ox O2 Delivery O2 Flow Rate FiO2 12/02/18 08:51 Room Air 12/02/18 08:31 73 155/56 12/02/18 07:00 98.3 18 95 98.3 Input & Output Intake and Output 12/02/18 07:00 Intake Total 100 ml Output Total 0 ml Balance 100 ml Intake Oral 100 ml Output Urine Total 0 ml # Voids 4 Physical Exam Physical Exam General appearance - alert,well appearing, and in no distress and oriented to person, place, and time Mental Status - alert, oriented to person, place, and time, affect appropriate to mood Head - normal Chest - clear to auscultation, no wheezes, rales or rhonchi, symmetric air entry Heart - S1 and S2 normal Abdomen - soft, nontender, nondistended, no masses or organomegaly Neurological - alert and oriented Musculoskeletal - no muscular tenderness noted Extremities - no pedal edema Skin - warm and dry Labs Laboratory Tests Test 11/30/18 12:53 11/30/18 17:00 11/30/18 20:53 11/30/18 21:20 Glucose (Fingerstick) 277 mg/dL (70-99) 200 mg/dL (70-99) 31 mg/dL (70-99) 144 mg/dL (70-99) Test 12/01/18 00:03 12/01/18 00:19 12/01/18 04:35 12/01/18 05:31 Glucose (Fingerstick) 67 mg/dL (70-99) 147 mg/dL (70-99) 135 mg/dL (70-99) White Blood Count 5.1 x10^3/uL (4.0-11.0) Red Blood Count 2.89 x10^6/uL (3.50-5.40) Hemoglobin 8.2 g/dL (12.0-15.5) Hematocrit 24.4 % (36.0-47.0) Mean Corpuscular Volume 85 fL (79-100) Mean Corpuscular Hemoglobin 28 pg (25-35) Mean Corpuscular Hemoglobin Concent 34 g/dL (31-37) Red Cell Distribution Width 15.1 % (11.5-14.5) Platelet Count 114 x10^3/uL (140-400) Neutrophils (%) (Auto) 59 % (31-73) Lymphocytes (%) (Auto) 32 % (24-48) Monocytes (%) (Auto) 7 % (0-9) Eosinophils (%) (Auto) 2 % (0-3) Basophils (%) (Auto) 1 % (0-3) Neutrophils # (Auto) 3.0 x10^3uL (1.8-7.7) Lymphocytes # (Auto) 1.6 x10^3/uL (1.0-4.8) Monocytes # (Auto) 0.4 x10^3/uL (0.0-1.1) Eosinophils # (Auto) 0.1 x10^3/uL (0.0-0.7) Basophils # (Auto) 0.0 x10^3/uL (0.0-0.2) Sodium Level 142 mmol/L (136-145) Potassium Level 5.0 mmol/L (3.5-5.1) Chloride Level 109 mmol/L (98-107) Carbon Dioxide Level 22 mmol/L (21-32) Anion Gap 11 (6-14) Blood Urea Nitrogen 68 mg/dL (7-20) Creatinine 1.9 mg/dL (0.6-1.0) Estimated GFR (Cockcroft-Gault) 25.1 Glucose Level 118 mg/dL (70-99) Calcium Level 8.4 mg/dL (8.5-10.1) Test 12/01/18 07:30 12/01/18 11:29 12/01/18 16:43 12/01/18 20:49 Glucose (Fingerstick) 153 mg/dL (70-99) 295 mg/dL (70-99) 224 mg/dL (70-99) 159 mg/dL (70-99) Test 12/02/18 04:45 White Blood Count 5.8 x10^3/uL (4.0-11.0) Red Blood Count 3.27 x10^6/uL (3.50-5.40) Hemoglobin 9.4 g/dL (12.0-15.5) Hematocrit 28.2 % (36.0-47.0) Mean Corpuscular Volume 86 fL (79-100) Mean Corpuscular Hemoglobin 29 pg (25-35) Mean Corpuscular Hemoglobin Concent 33 g/dL (31-37) Red Cell Distribution Width 15.0 % (11.5-14.5) Platelet Count 152 x10^3/uL (140-400) Neutrophils (%) (Auto) 68 % (31-73) Lymphocytes (%) (Auto) 23 % (24-48) Monocytes (%) (Auto) 7 % (0-9) Eosinophils (%) (Auto) 2 % (0-3) Basophils (%) (Auto) 1 % (0-3) Neutrophils # (Auto) 3.9 x10^3uL (1.8-7.7) Lymphocytes # (Auto) 1.3 x10^3/uL (1.0-4.8) Monocytes # (Auto) 0.4 x10^3/uL (0.0-1.1) Eosinophils # (Auto) 0.1 x10^3/uL (0.0-0.7) Basophils # (Auto) 0.1 x10^3/uL (0.0-0.2) Sodium Level 141 mmol/L (136-145) Potassium Level 5.3 mmol/L (3.5-5.1) Chloride Level 110 mmol/L (98-107) Carbon Dioxide Level 17 mmol/L (21-32) Anion Gap 14 (6-14) Blood Urea Nitrogen 73 mg/dL (7-20) Creatinine 1.9 mg/dL (0.6-1.0) Estimated GFR (Cockcroft-Gault) 25.1 Glucose Level 178 mg/dL (70-99) Calcium Level 8.6 mg/dL (8.5-10.1) Laboratory Tests Test 12/01/18 11:29 12/01/18 16:43 12/01/18 20:49 12/02/18 04:45 Glucose (Fingerstick) 295 mg/dL (70-99) 224 mg/dL (70-99) 159 mg/dL (70-99) White Blood Count 5.8 x10^3/uL (4.0-11.0) Red Blood Count 3.27 x10^6/uL (3.50-5.40) Hemoglobin 9.4 g/dL (12.0-15.5) Hematocrit 28.2 % (36.0-47.0) Mean Corpuscular Volume 86 fL (79-100) Mean Corpuscular Hemoglobin 29 pg (25-35) Mean Corpuscular Hemoglobin Concent 33 g/dL (31-37) Red Cell Distribution Width 15.0 % (11.5-14.5) Platelet Count 152 x10^3/uL (140-400) Neutrophils (%) (Auto) 68 % (31-73) Lymphocytes (%) (Auto) 23 % (24-48) Monocytes (%) (Auto) 7 % (0-9) Eosinophils (%) (Auto) 2 % (0-3) Basophils (%) (Auto) 1 % (0-3) Neutrophils # (Auto) 3.9 x10^3uL (1.8-7.7) Lymphocytes # (Auto) 1.3 x10^3/uL (1.0-4.8) Monocytes # (Auto) 0.4 x10^3/uL (0.0-1.1) Eosinophils # (Auto) 0.1 x10^3/uL (0.0-0.7) Basophils # (Auto) 0.1 x10^3/uL (0.0-0.2) Sodium Level 141 mmol/L (136-145) Potassium Level 5.3 mmol/L (3.5-5.1) Chloride Level 110 mmol/L (98-107) Carbon Dioxide Level 17 mmol/L (21-32) Anion Gap 14 (6-14) Blood Urea Nitrogen 73 mg/dL (7-20) Creatinine 1.9 mg/dL (0.6-1.0) Estimated GFR (Cockcroft-Gault) 25.1 Glucose Level 178 mg/dL (70-99) Calcium Level 8.6 mg/dL (8.5-10.1) Meds Current Medications Insulin Human Lispro (HumaLOG) 0-8 UNITS TIDBFRMEAL SQ Last administered on 12/02/18at 08:45; Start 12/01/18 at 11:30 Assessment Assessment 1. Congestive heart failure, acute on chronic exacerbation. 2. Coronary artery disease, 3-vessel disease, not a candidate for revascularization. Medical management. 3. Recurrent urinary tract infections. 4. Chronic kidney disease stage 3. 5. Insulin-dependent diabetes. 6. Breast carcinoma, left mastectomy. 7. History of hip fracture. 8. Hypertension. 9. Hyperlipidemia. 10. Hypothyroidism. PLAN: At this time, was admit to hospital. Titrate chronic systolic heart failure with IV Bumex. Monitor electrolytes. Cardiology is consulted. I think last echo shows 25% ejection fraction, and the patient also has elevated D-dimer. We will give Lovenox 1 dose, scheduled for a V/Q scan. Hypoglycemia- glucose 31 yesterday evening. Blood sugar is 135 this morning. Insulin was held. Discussed with daughter. She'll use her on average about 5 units of Humalog 3 times a day and the 25-30 units of Lantus at bedtime. She ate well this morning so I will restart the Lantus at about 15 units subcutaneous daily at bedtime and use low-dose sliding scale insulin. Lung V/Q scan is negative for pulmonary emboli. Hypertension not controlled . 183/61-155/56. Renal function is getting worse. Potassium is 5.3 creatinine 1.9 and BUN is 73. Consult Dr. Alonso for nephrology evaluation and management. Plan Plan For more details regarding further plans, please refer to the orders. XENA MALAGON MD Dec 02, 2018 10:46
[2018-12-02 11:00] VITALS: BP 179/62
--- NOTE | 2018-12-02 12:55 | PDOC ---
PROGRESS NOTES Subjective Subjective Patient seen and examined Objective Objective Vital Signs Date Time Temp Pulse Resp B/P (MAP) Pulse Ox O2 Delivery O2 Flow Rate FiO2 12/02/18 11:00 97.9 73 18 179/62 (101) 95 Room Air 97.9 Intake and Output 12/02/18 07:00 Intake Total 100 ml Output Total 0 ml Balance 100 ml Intake Oral 100 ml Output Urine Total 0 ml # Voids 4 Physical Exam Abdomen: Normal bowel sounds Heart: Regular rate General: mild distress Lungs: Other (mildly decreased breath sounds) Assessment Assessment Problems Medical Problems: (1) Elevated d-dimer Status: Acute (2) Urinary tract infection Status: Acute 1. Acute on chronic systolic CHF; improved. Updated echo shows an ejection fraction of 45-50% with moderate pulmonary artery hypertension with CPAP of 42 mmHg. 2. Accelerated HTN; also improved. Continue present treatment. 3. CAD/3VD; has declined intervention multiple times in the past. Known for diffused disease as well. Clinically stable. CP free. 4. Ischemic cardiomyopathy; LVEF now at 45 to 50%. 5. CKD; monitoring lab. Renal evaluation pending. 6. Diabetes, II 7. Hyperlipidemia 8. Elevated d-dimer with low probability VQ scan. Comment Review of Relevant I have reviewed the following items kathleen (where applicable) has been applied. Labs Laboratory Tests Test 11/30/18 17:00 11/30/18 20:53 11/30/18 21:20 12/01/18 00:03 Glucose (Fingerstick) 200 mg/dL (70-99) 31 mg/dL (70-99) 144 mg/dL (70-99) 67 mg/dL (70-99) Test 12/01/18 00:19 12/01/18 04:35 12/01/18 05:31 12/01/18 07:30 Glucose (Fingerstick) 147 mg/dL (70-99) 135 mg/dL (70-99) 153 mg/dL (70-99) White Blood Count 5.1 x10^3/uL (4.0-11.0) Red Blood Count 2.89 x10^6/uL (3.50-5.40) Hemoglobin 8.2 g/dL (12.0-15.5) Hematocrit 24.4 % (36.0-47.0) Mean Corpuscular Volume 85 fL (79-100) Mean Corpuscular Hemoglobin 28 pg (25-35) Mean Corpuscular Hemoglobin Concent 34 g/dL (31-37) Red Cell Distribution Width 15.1 % (11.5-14.5) Platelet Count 114 x10^3/uL (140-400) Neutrophils (%) (Auto) 59 % (31-73) Lymphocytes (%) (Auto) 32 % (24-48) Monocytes (%) (Auto) 7 % (0-9) Eosinophils (%) (Auto) 2 % (0-3) Basophils (%) (Auto) 1 % (0-3) Neutrophils # (Auto) 3.0 x10^3uL (1.8-7.7) Lymphocytes # (Auto) 1.6 x10^3/uL (1.0-4.8) Monocytes # (Auto) 0.4 x10^3/uL (0.0-1.1) Eosinophils # (Auto) 0.1 x10^3/uL (0.0-0.7) Basophils # (Auto) 0.0 x10^3/uL (0.0-0.2) Sodium Level 142 mmol/L (136-145) Potassium Level 5.0 mmol/L (3.5-5.1) Chloride Level 109 mmol/L (98-107) Carbon Dioxide Level 22 mmol/L (21-32) Anion Gap 11 (6-14) Blood Urea Nitrogen 68 mg/dL (7-20) Creatinine 1.9 mg/dL (0.6-1.0) Estimated GFR (Cockcroft-Gault) 25.1 Glucose Level 118 mg/dL (70-99) Calcium Level 8.4 mg/dL (8.5-10.1) Test 12/01/18 11:29 12/01/18 16:43 12/01/18 20:49 12/02/18 04:45 Glucose (Fingerstick) 295 mg/dL (70-99) 224 mg/dL (70-99) 159 mg/dL (70-99) White Blood Count 5.8 x10^3/uL (4.0-11.0) Red Blood Count 3.27 x10^6/uL (3.50-5.40) Hemoglobin 9.4 g/dL (12.0-15.5) Hematocrit 28.2 % (36.0-47.0) Mean Corpuscular Volume 86 fL (79-100) Mean Corpuscular Hemoglobin 29 pg (25-35) Mean Corpuscular Hemoglobin Concent 33 g/dL (31-37) Red Cell Distribution Width 15.0 % (11.5-14.5) Platelet Count 152 x10^3/uL (140-400) Neutrophils (%) (Auto) 68 % (31-73) Lymphocytes (%) (Auto) 23 % (24-48) Monocytes (%) (Auto) 7 % (0-9) Eosinophils (%) (Auto) 2 % (0-3) Basophils (%) (Auto) 1 % (0-3) Neutrophils # (Auto) 3.9 x10^3uL (1.8-7.7) Lymphocytes # (Auto) 1.3 x10^3/uL (1.0-4.8) Monocytes # (Auto) 0.4 x10^3/uL (0.0-1.1) Eosinophils # (Auto) 0.1 x10^3/uL (0.0-0.7) Basophils # (Auto) 0.1 x10^3/uL (0.0-0.2) Sodium Level 141 mmol/L (136-145) Potassium Level 5.3 mmol/L (3.5-5.1) Chloride Level 110 mmol/L (98-107) Carbon Dioxide Level 17 mmol/L (21-32) Anion Gap 14 (6-14) Blood Urea Nitrogen 73 mg/dL (7-20) Creatinine 1.9 mg/dL (0.6-1.0) Estimated GFR (Cockcroft-Gault) 25.1 Glucose Level 178 mg/dL (70-99) Calcium Level 8.6 mg/dL (8.5-10.1) Test 12/02/18 08:26 12/02/18 11:23 Glucose (Fingerstick) 248 mg/dL (70-99) 249 mg/dL (70-99) Laboratory Tests Test 12/01/18 16:43 12/01/18 20:49 12/02/18 04:45 12/02/18 08:26 Glucose (Fingerstick) 224 mg/dL (70-99) 159 mg/dL (70-99) 248 mg/dL (70-99) White Blood Count 5.8 x10^3/uL (4.0-11.0) Red Blood Count 3.27 x10^6/uL (3.50-5.40) Hemoglobin 9.4 g/dL (12.0-15.5) Hematocrit 28.2 % (36.0-47.0) Mean Corpuscular Volume 86 fL (79-100) Mean Corpuscular Hemoglobin 29 pg (25-35) Mean Corpuscular Hemoglobin Concent 33 g/dL (31-37) Red Cell Distribution Width 15.0 % (11.5-14.5) Platelet Count 152 x10^3/uL (140-400) Neutrophils (%) (Auto) 68 % (31-73) Lymphocytes (%) (Auto) 23 % (24-48) Monocytes (%) (Auto) 7 % (0-9) Eosinophils (%) (Auto) 2 % (0-3) Basophils (%) (Auto) 1 % (0-3) Neutrophils # (Auto) 3.9 x10^3uL (1.8-7.7) Lymphocytes # (Auto) 1.3 x10^3/uL (1.0-4.8) Monocytes # (Auto) 0.4 x10^3/uL (0.0-1.1) Eosinophils # (Auto) 0.1 x10^3/uL (0.0-0.7) Basophils # (Auto) 0.1 x10^3/uL (0.0-0.2) Sodium Level 141 mmol/L (136-145) Potassium Level 5.3 mmol/L (3.5-5.1) Chloride Level 110 mmol/L (98-107) Carbon Dioxide Level 17 mmol/L (21-32) Anion Gap 14 (6-14) Blood Urea Nitrogen 73 mg/dL (7-20) Creatinine 1.9 mg/dL (0.6-1.0) Estimated GFR (Cockcroft-Gault) 25.1 Glucose Level 178 mg/dL (70-99) Calcium Level 8.6 mg/dL (8.5-10.1) Test 12/02/18 11:23 Glucose (Fingerstick) 249 mg/dL (70-99) Microbiology 11/29/18 Urine Culture - Preliminary, Resulted 11/29/18 Urine Culture Result 1 (AMADOU) - Preliminary, Resulted Medications Current Medications Albuterol/ Ipratropium (Duoneb) 3 ml 1X ONCE NEB Last administered on at 18:55; Start 11/29/18 at 18:45; Stop 11/29/18 at 18:46; Status DC Dexamethasone Sodium Phosphate (Decadron) 10 mg 1X ONCE IV Last administered on 11/29/18at 18:51; Start 11/29/18 at 18:45; Stop 11/29/18 at 18:46; Status DC Aspirin (Gege Aspirin) 325 mg 1X ONCE PO Last administered on 11/29/18at 18:45; Start 11/29/18 at 18:45; Stop 11/29/18 at 18:46; Status DC Labetalol HCl (Normodyne Iv Push) 10 mg 1X ONCE IVP Last administered on 11/29/18at 19:24; Start 11/29/18 at 19:15; Stop 11/29/18 at 19:16; Status DC Bumetanide (Bumex) 0.5 mg 1X ONCE IV Last administered on 11/29/18at 20:57; Start 11/29/18 at 20:45; Stop 11/29/18 at 20:46; Status DC Ceftriaxone Sodium (Rocephin) 1 gm 1X ONCE IVP Last administered on 11/29/18at 21:06; Start 11/29/18 at 20:45; Stop 11/29/18 at 20:46; Status DC Acetaminophen (Tylenol) 650 mg PRN Q4HRS PRN PO FEVER; Start 11/29/18 at 20:30; Stop 11/30/18 at 20:29; Status DC Insulin Human Lispro (HumaLOG) 0-5 UNITS TIDWMEALS SQ Last administered on 11/30/18at 08:27; Start 11/30/18 at 08:00; Stop 11/30/18 at 09:48; Status DC Dextrose (Dextrose 50%-Water Syringe) 12.5 gm PRN Q15MIN PRN IV SEE COMMENTS Last administered on 12/01/18at 00:08; Start 11/29/18 at 20:30; Stop 12/01/18 at 09:19; Status DC Enoxaparin Sodium (Lovenox 60mg Syringe) 60 mg 1X ONCE SQ Last administered on 11/29/18 21:07; Start 11/29/18 at 21:00; Stop 11/29/18 at 21:01; Status DC Hydralazine HCl (Apresoline Inj) 10 mg 1X ONCE IVP Last administered on 11/30/18 08:18; Start 11/30/18 at 08:15; Stop 11/30/18 at 08:16; Status DC Acetaminophen/ Codeine Phosphate (Tylenol #3) 1 tab PRN Q12HR PRN PO PAIN Last administered on 11/30/18 19:21; Start 11/30/18 at 09:45 Atorvastatin Calcium (Lipitor) 20 mg QHS PO Last administered on 12/01/18 21:15; Start 11/30/18 at 21:00 Carvedilol (Coreg) 12.5 mg BIDWMEALS PO Last administered on 12/02/18 08:30; Start 11/30/18 at 10:00 Clopidogrel Bisulfate (Plavix) 75 mg DAILY PO Last administered on 12/02/18 08:28; Start 11/30/18 at 10:00 Diclofenac Sodium (Voltaren) 1 opal QID TP Last administered on 12/02/18 08:32; Start 11/30/18 at 10:00 Docusate Sodium (Colace) 100 mg DAILY PO Last administered on 12/02/18 08:28; Start 11/30/18 at 10:00 Albuterol/ Ipratropium (Duoneb) 3 ml TID NEB Last administered on 12/02/18 08: 50; Start 11/30/18 at 10:00 Isosorbide Mononitrate (Imdur) 30 mg DAILY PO Last administered on 12/02/18 08:31; Start 11/30/18 at 10:00 Levothyroxine Sodium (Synthroid) 100 mcg Fr@0600 PO Last administered on 11/30/18 12:50; Start 11/30/18 at 10:00 Pregabalin (Lyrica) 50 mg BID PO Last administered on 12/02/18 08:30; Start 11/30/18 at 10:00 Calcium/Vitamin D (Oscal D 500mg/ 200uts) 1 tab DAILY PO Last administered on 6/2/19at 08:28; Start 11/30/18 at 10:00 Famotidine (Pepcid) 40 mg PRN DAILY PRN PO HEARTBURN.; Start 11/30/18 at 21:00 Insulin Glargine (Lantus) 35 units QHS SQ ; Start 11/30/18 at 21:00; Stop 11/30/18 at 21:00; Status DC Insulin Human Lispro (HumaLOG) 15 units TIDWMEALS SQ ; Start 11/30/18 at 12:00; Stop 11/30/18 at 12:00; Status DC Losartan Potassium (Cozaar) 100 mg DAILY PO Last administered on 12/02/18at 08:31; Start 11/30/18 at 10:00 Bumetanide (Bumex) 1 mg DAILY PO Last administered on 12/02/18at 08:28; Start 12/01/18 at 09:00 Bumetanide (Bumex) 0.5 mg 1X ONCE IV Last administered on 11/30/18at 12:49; Start 11/30/18 at 10:00; Stop 11/30/18 at 10:01; Status DC Ceftriaxone Sodium (Rocephin) 1 gm Q24H IVP Last administered on 12/01/18at 17:20; Start 11/30/18 at 16:00 Insulin Glargine (Lantus) 20 units QHS SQ ; Start 11/30/18 at 21:00; Stop 11/30/18 at 21:33; Status DC Insulin Human Lispro (HumaLOG) 10 units TIDWMEALS SQ Last administered on 11/30/18at 17:15; Start 11/30/18 at 12:00; Stop 11/30/18 at 21:34; Status DC Enoxaparin Sodium (Lovenox 30mg Syringe) 30 mg Q24H SQ Last administered on 12/02/18at 10:23; Start 11/30/18 at 10:00 Insulin Human Lispro (HumaLOG) 0-7 UNITS TIDWMEALS SQ Last administered on 12/01/18at 08:41; Start 11/30/18 at 12:00; Stop 12/01/18 at 11:16; Status DC Dextrose (Dextrose 50%-Water Syringe) 12.5 gm PRN Q15MIN PRN IV SEE COMMENTS; Start 11/30/18 at 09:45 Insulin Human Lispro (HumaLOG) 6 units TIDWMEALS SQ Last administered on 12/02/18at 12:38; Start 12/01/18 at 08:00 Lactobacillus Rhamnosus (Culturelle) 1 cap BID PO Last administered on 12/02/18at 08:28; Start 12/01/18 at 09:00 Insulin Human Lispro (HumaLOG) 0-8 UNITS TIDBFRMEAL SQ Last administered on 12/02/18at 12:37; Start 12/01/18 at 11:30 Active Scripts Active Carvedilol (Carvedilol) 12.5 Mg Tablet 12.5 Mg PO BIDWMEALS 30 Days Isosorbide Mononitrate Er (Isosorbide Mononitrate) 30 Mg Tab.er.24h 30 Mg PO DAILY 30 Days Atorvastatin Calcium 20 Mg Tablet 20 Mg PO QHS 30 Days Reported Voltaren (Diclofenac Sodium) 100 Gm Gel..gram. 1 Gm TP QID Ferrous Sulfate 325 Mg Tablet 325 Mg PO DAILY Levothyroxine Sodium 100 Mcg Tablet 1 Tab PO QFR Clopidogrel (Clopidogrel Bisulfate) 75 Mg Tablet 75 Mg PO DAILY Lyrica (Pregabalin) 50 Mg Capsule 1 Cap PO BID Pepcid (Famotidine) 40 Mg Tablet 40 Mg PO DAILY PRN Duoneb 0.5-3(2.5) Mg/3 Ml (Albuterol/Ipratropium) 3 Ml Ampul.neb 3 Ml NEB TID NITROGLYCERIN SubLingual (Nitroglycerin) 0.4 Mg Tab.subl 1 Tab SL UD PRN Tylenol With Codeine #3 Tablet (Acetaminophen/Codeine Phosphate) 1 Each Tablet 1 Tab PO PRN Q12HR PRN Losartan Potassium 100 Mg Tablet 100 Mg PO DAILY Humalog (Insulin Lispro) 100 Unit/1 Ml Cartridge 15 Unit SQ TIDWMEALS Docusate Sodium 100 Mg Capsule 1 Cap PO DAILY Calcium + Vitamin D Tablet (Calcium Carbonate/Vitamin D3) 1 Each Tablet 1 Each PO DAILY Lantus (Insulin Glargine,Hum.rec.anlog) 100 Unit/1 Ml Vial 35 Unit SQ HS Synthroid (Levothyroxine Sodium) 50 Mcg Tablet 1 Tab PO DAILY06 Vitals/I & O Vital Sign - Last 24 Hours 12/01/18 12/01/18 12/01/18 12/01/18 15:00 17:20 19:20 19:32 Temp 97.7 97.8 97.7 97.8 Pulse 65 72 70 Resp 22 21 B/P (MAP) 126/43 (70) 183/66 105/54 (71) Pulse Ox 96 96 O2 Delivery Room Air Room Air Room Air 12/01/18 12/01/18 12/02/18 12/02/18 20:42 23:49 03:30 07:00 Temp 97.7 97.9 98.3 97.7 97.9 98.3 Pulse 67 73 73 Resp 20 20 18 B/P (MAP) 124/59 (80) 155/56 (89) 183/61 (101) Pulse Ox 95 98 95 95 O2 Delivery Room Air Room Air Room Air Room Air 12/02/18 12/02/18 12/02/18 12/02/18 08:30 08:31 08:31 08:51 Pulse 73 73 73 B/P (MAP) 155/56 155/56 155/56 O2 Delivery Room Air 12/02/18 11:00 Temp 97.9 97.9 Pulse 73 Resp 18 B/P (MAP) 179/62 (101) Pulse Ox 95 O2 Delivery Room Air Intake and Output 12/01/18 12/01/18 12/02/18 15:00 23:00 07:00 Intake Total 100 ml Output Total 0 ml Balance 100 ml DANIELLE JERONIMO MD Dec 02, 2018 12:55
[2018-12-02 15:00] VITALS: BP 182/66
[2018-12-02] MEDS: cefTRIAXone IV Push 1 GM VIAL. IVP SCH (16:27)
[2018-12-02 19:00] VITALS: BP 140/51
[2018-12-02] MEDS: ATORVASTATIN CALCIUM 20 MG TABLET PO SCH (21:09)
[2018-12-02 23:00] VITALS: BP 110/68
[2018-12-03] VITALS (7 sets, daily range): BP systolic 131–191; BP diastolic 52–83
[2018-12-03 06:28] LABS: CREATININE 1.6 mg/dL (0.6-1.0); GFR 30.6; POTASSIUM 4.9 mmol/L (3.5-5.1)
[2018-12-03] MEDS: IPRATRPIUM/ALBUTEROL 0.5/2.5MG 3 ML NEBU. NEB SCH ×3 (07:30→20:18)
[2018-12-03] MEDS: CARVEDILOL 12.5 MG TABLET. PO SCH ×2 (08:13→17:37)
[2018-12-03] MEDS: INSULIN LISPRO 300 UNITS/3 ML INSULN.PEN. SQ SCH ×6 (08:17→17:43)
[2018-12-03] MEDS: ACETAMINOPHEN/CODEINE 300/30MG TABLET. PO PRN (08:45)
[2018-12-03] MEDS: LACTOBACILLUS RHAMNOSUS GG 1 CAPSULE. PO SCH ×2 (08:45→21:21)
[2018-12-03] MEDS: BUMETANIDE 1 MG TABLET. PO SCH (08:45)
[2018-12-03] MEDS: CLOPIDOGREL BISULFATE 75 MG TABLET PO SCH (08:45)
[2018-12-03] MEDS: CALCIUM CARB/VIT D3 500/200 TABLET. PO SCH (08:46)
[2018-12-03] MEDS: DOCUSATE SODIUM 100 MG CAPSULE. PO SCH (08:46)
[2018-12-03] MEDS: PREGABALIN 50 MG CAPSULE PO SCH ×2 (08:46→21:22)
[2018-12-03] MEDS: ISOSORBIDE MONONITRATE ER 30 MG TAB.ER.24H PO SCH (08:46)
[2018-12-03] MEDS: DICLOFENAC SODIUM 1% TOPICAL GEL 100GM TUBE. TP SCH ×4 (08:47→21:21)
[2018-12-03] MEDS: LOSARTAN POTASSIUM 50 MG TABLET. PO SCH (08:47)
--- NOTE | 2018-12-03 09:39 | PDOC ---
PROGRESS NOTES Subjective Subjective feels better today Objective Objective Vital Signs Date Time Temp Pulse Resp B/P (MAP) Pulse Ox O2 Delivery O2 Flow Rate FiO2 12/03/18 09:17 72 152/68 (96) 12/03/18 08:45 99 Room Air 12/03/18 07:00 99.3 14 99.3 Intake and Output 12/03/18 07:00 Intake Total 430 ml Balance 430 ml Intake Oral 430 ml # Voids 6 # Bowel Movements 2 Physical Exam Abdomen: Normal bowel sounds Heart: Regular rate General: Alert, mild distress HEENT: Atraumatic Lungs: Clear to auscultation, Other (mildly decreased breath sounds) MUSCULOSKELETAL: No deformity, No swelling Psych/Mental Status: Mental status NL Skin: No breakdown Diagnosis Problem List Problems Medical Problems: (1) Elevated d-dimer Status: Acute (2) Urinary tract infection Status: Acute Assessment Assessment 1. Congestive heart failure, acute on chronic exacerbation. 2. Coronary artery disease, 3-vessel disease, not a candidate for revascularization. Medical management. 3. Recurrent urinary tract infections. 4. Chronic kidney disease stage 3. 5. Insulin-dependent diabetes. 6. Breast carcinoma, left mastectomy. 7. History of hip fracture. 8. Hypertension. 9. Hyperlipidemia. 10. Hypothyroidism. PLAN: ECHO 40-45% cr 1,6 stable cxr mild chf urine c/s 100,000gram neg iv Rocephin. Low-dose sliding scale insulin. Lung V/Q scan is negative for pulmonary emboli. Hypertension not controlled . 183/61-155/56. Renal function is stable Plan Plan of Care Problems Medical Problems: (1) Elevated d-dimer Status: Acute (2) Urinary tract infection Status: Acute Comment Review of Relevant I have reviewed the following items kathleen (where applicable) has been applied. Labs Laboratory Tests Test 12/02/18 11:23 12/02/18 17:38 12/02/18 20:18 12/03/18 05:15 Glucose (Fingerstick) 249 mg/dL (70-99) 259 mg/dL (70-99) 273 mg/dL (70-99) Sodium Level 141 mmol/L (136-145) Potassium Level 4.9 mmol/L (3.5-5.1) Chloride Level 108 mmol/L (98-107) Carbon Dioxide Level 22 mmol/L (21-32) Anion Gap 11 (6-14) Blood Urea Nitrogen 66 mg/dL (7-20) Creatinine 1.6 mg/dL (0.6-1.0) Estimated GFR (Cockcroft-Gault) 30.6 Glucose Level 273 mg/dL (70-99) Calcium Level 8.0 mg/dL (8.5-10.1) Test 12/03/18 07:39 Glucose (Fingerstick) 277 mg/dL (70-99) Microbiology 11/29/18 Urine Culture - Preliminary, Resulted 11/29/18 Urine Culture Result 1 (AMADOU) - Preliminary, Resulted Vitals/I & O Vital Sign - Last 24 Hours 12/02/18 12/02/18 12/02/18 12/02/18 11:00 12:56 15:00 16:33 Temp 97.9 98.0 97.9 98.0 Pulse 73 74 74 Resp 18 18 B/P (MAP) 179/62 (101) 182/66 (104) 182/66 Pulse Ox 95 98 O2 Delivery Room Air Room Air Room Air 12/02/18 12/02/18 12/02/18 12/02/18 19:00 19:40 20:55 23:00 Temp 98.0 98.1 98.0 98.1 Pulse 66 73 Resp 20 20 B/P (MAP) 140/51 (80) 110/68 (82) Pulse Ox 95 99 99 O2 Delivery Room Air Room Air Room Air Room Air 12/03/18 12/03/18 12/03/18 12/03/18 03:43 07:00 07:30 08:13 Temp 98.3 99.3 98.3 99.3 Pulse 60 72 69 Resp 20 14 B/P (MAP) 164/60 (94) 191/73 (112) 191/73 Pulse Ox 97 99 99 O2 Delivery Room Air Room Air Room Air 12/03/18 12/03/18 12/03/18 12/03/18 08:45 08:46 08:47 09:17 Pulse 69 69 72 B/P (MAP) 191/73 191/73 152/68 (96) Pulse Ox 99 O2 Delivery Room Air Intake and Output 12/02/18 12/02/18 12/03/18 15:00 23:00 07:00 Intake Total 280 ml 150 ml Balance 280 ml 150 ml JAMES CORCORAN MD Dec 03, 2018 09:39
[2018-12-03] MEDS: ENOXAPARIN 30 MG/0.3 ML SYRINGE. SQ SCH (10:42)
--- NOTE | 2018-12-03 10:48 | NUR ---
SS following up with discharge planning. PT/OT recommended home with assistance. Pt was previously on services with [facility], ; fax [phone]. SS will await resumption of care orders for home healthcare and will proceed accordingly.
--- NOTE | 2018-12-03 11:05 | PDOC2 ---
CONSULT Date of Consult Date of Consult DATE: 12/03/18 TIME: 10:51 Reason for Consult Reason for Consult: "Azotemia and Hyperkalemia" Source Source: Caregiver, Chart review History of Present Illness Reason for Visit: The patient is an 88-year-old female ,known 3-vessel disease, not a good candidate for intervention , chronic systolic heart failure, ejection fraction of 30-35%. Presented with c/o shortness of breath, BNP was elevated. Chest x- ray shows CHF , was given IV Bumex. in the ER Currently feeling better per daughter (pt doesn't speak/understand paraguayan) No CP, No N/V/D. No urinary complaints, denies symptoms of UTI . During previous admissions advised to follow with us as OP - non compliant Past Medical History Cardiovascular: CAD, CHF, HTN, Hyperlipidemia, Other Pulmonary: No pertinent hx CENTRAL NERVOUS SYSTEM: Other GI: Other Heme/Onc: Anemia NOS, Cancer Hepatobiliary: No pertinent hx Psych: Anxiety, Depression Musculoskeletal: Osteoarthritis Rheumatologic: No pertinent hx Infectious disease: Other Renal/: UTI Endocrine: Diabetes Past Surgical History Past Surgical History: Total hip replacement Family History Family History: Other Social History ALCOHOL: none Drugs: None Lives: with Family Current Problem List Problem List Problems Medical Problems: (1) Elevated d-dimer Status: Acute (2) Urinary tract infection Status: Acute Current Medications Current Medications Current Medications Albuterol/ Ipratropium (Duoneb) 3 ml 1X ONCE NEB Last administered on 11/29/18at 18:55; Start 11/29/18 at 18:45; Stop 11/29/18 at 18:46; Status DC Dexamethasone Sodium Phosphate (Decadron) 10 mg 1X ONCE IV Last administered on 11/29/18at 18:51; Start 11/29/18 at 18:45; Stop 11/29/18 at 18:46; Status DC Aspirin (Gege Aspirin) 325 mg 1X ONCE PO Last administered on 11/29/18at 18:45; Start 11/29/18 at 18:45; Stop 11/29/18 at 18:46; Status DC Labetalol HCl (Normodyne Iv Push) 10 mg 1X ONCE IVP Last administered on 11/29/18at 19:24; Start 11/29/18 at 19:15; Stop 11/29/18 at 19:16; Status DC Bumetanide (Bumex) 0.5 mg 1X ONCE IV Last administered on 11/29/18 20:57; Start 11/29/18 at 20:45; Stop 11/29/18 at 20:46; Status DC Ceftriaxone Sodium (Rocephin) 1 gm 1X ONCE IVP Last administered on 11/29/18 21:06; Start 11/29/18 at 20:45; Stop 11/29/18 at 20:46; Status DC Acetaminophen (Tylenol) 650 mg PRN Q4HRS PRN PO FEVER; Start 11/29/18 at 20:30; Stop 11/30/18 at 20:29; Status DC Insulin Human Lispro (HumaLOG) 0-5 UNITS TIDWMEALS SQ Last administered on 11/30/18 08:27; Start 11/30/18 at 08:00; Stop 11/30/18 at 09:48; Status DC Dextrose (Dextrose 50%-Water Syringe) 12.5 gm PRN Q15MIN PRN IV SEE COMMENTS Last administered on 12/01/18at 00:08; Start 11/29/18 at 20:30; Stop 12/01/18 at 09:19; Status DC Enoxaparin Sodium (Lovenox 60mg Syringe) 60 mg 1X ONCE SQ Last administered on 11/29/18 21:07; Start 11/29/18 at 21:00; Stop 11/29/18 at 21:01; Status DC Hydralazine HCl (Apresoline Inj) 10 mg 1X ONCE IVP Last administered on 11/30/18 08:18; Start 11/30/18 at 08:15; Stop 11/30/18 at 08:16; Status DC Acetaminophen/ Codeine Phosphate (Tylenol #3) 1 tab PRN Q12HR PRN PO PAIN Last administered on 12/03/18 08:45; Start 11/30/18 at 09:45 Atorvastatin Calcium (Lipitor) 20 mg QHS PO Last administered on 12/02/18 21:09; Start 11/30/18 at 21:00 Carvedilol (Coreg) 12.5 mg BIDWMEALS PO Last administered on 12/03/18 08:13; Start 11/30/18 at 10:00 Clopidogrel Bisulfate (Plavix) 75 mg DAILY PO Last administered on 12/03/18 08:45; Start 11/30/18 at 10:00 Diclofenac Sodium (Voltaren) 1 opal QID TP Last administered on 12/03/18 08:47; Start 11/30/18 at 10:00 Docusate Sodium (Colace) 100 mg DAILY PO Last administered on 12/03/18 08:46; Start 11/30/18 at 10:00 Albuterol/ Ipratropium (Duoneb) 3 ml TID NEB Last administered on 12/03/18 07:30; Start 11/30/18 at 10:00 Isosorbide Mononitrate (Imdur) 30 mg DAILY PO Last administered on 12/03/18 08:46; Start 11/30/18 at 10:00 Levothyroxine Sodium (Synthroid) 100 mcg Fr@0600 PO Last administered on 11/30/18 12:50; Start 11/30/18 at 10:00 Pregabalin (Lyrica) 50 mg BID PO Last administered on 12/03/18 08:46; Start 11/30/18 at 10:00 Calcium/Vitamin D (Oscal D 500mg/ 200uts) 1 tab DAILY PO Last administered on 12/03/18 08:46; Start 11/30/18 at 10:00 Famotidine (Pepcid) 40 mg PRN DAILY PRN PO HEARTBURN.; Start 11/30/18 at 21:00 Insulin Glargine (Lantus) 35 units QHS SQ ; Start 11/30/18 at 21:00; Stop 11/30/18 at 21:00; Status DC Insulin Human Lispro (HumaLOG) 15 units TIDWMEALS SQ ; Start 11/30/18 at 12:00; Stop 11/30/18 at 12:00; Status DC Losartan Potassium (Cozaar) 100 mg DAILY PO Last administered on 12/03/18 08:47; Start 11/30/18 at 10:00 Bumetanide (Bumex) 1 mg DAILY PO Last administered on 12/03/18 08:45; Start 12/01/18 at 09:00 Bumetanide (Bumex) 0.5 mg 1X ONCE IV Last administered on 11/30/18 12:49; Start 11/30/18 at 10:00; Stop 11/30/18 at 10:01; Status DC Ceftriaxone Sodium (Rocephin) 1 gm Q24H IVP Last administered on 12/02/18at 16:27; Start 11/30/18 at 16:00 Insulin Glargine (Lantus) 20 units QHS SQ ; Start 11/30/18 at 21:00; Stop 11/30/18 at 21:33; Status DC Insulin Human Lispro (HumaLOG) 10 units TIDWMEALS SQ Last administered on 11/30/18at 17:15; Start 11/30/18 at 12:00; Stop 11/30/18 at 21:34; Status DC Enoxaparin Sodium (Lovenox 30mg Syringe) 30 mg Q24H SQ Last administered on 12/03/18at 10:42; Start 11/30/18 at 10:00 Insulin Human Lispro (HumaLOG) 0-7 UNITS TIDWMEALS SQ Last administered on 12/01/18at 08:41; Start 11/30/18 at 12:00; Stop 12/01/18 at 11:16; Status DC Dextrose (Dextrose 50%-Water Syringe) 12.5 gm PRN Q15MIN PRN IV SEE COMMENTS; Start 11/30/18 at 09:45 Insulin Human Lispro (HumaLOG) 6 units TIDWMEALS SQ Last administered on 12/03/18at 08:18; Start 12/01/18 at 08:00 Lactobacillus Rhamnosus (Culturelle) 1 cap BID PO Last administered on 12/03/18at 08:45; Start 12/01/18 at 09:00 Insulin Human Lispro (HumaLOG) 0-8 UNITS TIDBFRMEAL SQ Last administered on 12/03/18 08:17; Start 12/01/18 at 11:30 Active Scripts Active Carvedilol (Carvedilol) 12.5 Mg Tablet 12.5 Mg PO BIDWMEALS 30 Days Isosorbide Mononitrate Er (Isosorbide Mononitrate) 30 Mg Tab.er.24h 30 Mg PO DAILY 30 Days Atorvastatin Calcium 20 Mg Tablet 20 Mg PO QHS 30 Days Reported Voltaren (Diclofenac Sodium) 100 Gm Gel..gram. 1 Gm TP QID Ferrous Sulfate 325 Mg Tablet 325 Mg PO DAILY Levothyroxine Sodium 100 Mcg Tablet 1 Tab PO QFR Clopidogrel (Clopidogrel Bisulfate) 75 Mg Tablet 75 Mg PO DAILY Lyrica (Pregabalin) 50 Mg Capsule 1 Cap PO BID Pepcid (Famotidine) 40 Mg Tablet 40 Mg PO DAILY PRN Duoneb 0.5-3(2.5) Mg/3 Ml (Albuterol/Ipratropium) 3 Ml Ampul.neb 3 Ml NEB TID NITROGLYCERIN SubLingual (Nitroglycerin) 0.4 Mg Tab.subl 1 Tab SL UD PRN Tylenol With Codeine #3 Tablet (Acetaminophen/Codeine Phosphate) 1 Each Tablet 1 Tab PO PRN Q12HR PRN Losartan Potassium 100 Mg Tablet 100 Mg PO DAILY Humalog (Insulin Lispro) 100 Unit/1 Ml Cartridge 15 Unit SQ TIDWMEALS Docusate Sodium 100 Mg Capsule 1 Cap PO DAILY Calcium + Vitamin D Tablet (Calcium Carbonate/Vitamin D3) 1 Each Tablet 1 Each PO DAILY Lantus (Insulin Glargine,Hum.rec.anlog) 100 Unit/1 Ml Vial 35 Unit SQ HS Synthroid (Levothyroxine Sodium) 50 Mcg Tablet 1 Tab PO DAILY06 Allergies Allergies: Coded Allergies: No Known Medication Allergies (Verified Allergy, Unknown, 08/01/18) ROS Review of System Per HPI Physical Exam Physical Exam GEN: NAD HEENT: patient is blind in the left eye, OM moist NECK: Supple. CARDIOVASCULAR: S1, S2. No murmurs. LUNGS: CTA, Non labored ABDOMEN: Soft, bowel sounds present No Simpson, No CVA or SP tenderness EXTREMITIES: no edema. 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 Stable renal function ,E-Lytes stable, Monitor Frequent hospitalizations Didn't keep OP follow up appt with renal Hyperkalemia- Mild at presentation Resolved Low K diet UTI- Per Primary Acute on chronic systolic CHF Not on Home O2 On IV Lasix, Cardiology managing Hx of Thoracentesis -in Aug 2018 (1200 Ml drained) HTN: Adrenals Normal on CT Renal Duplex in 2017- No e/o significant ALVARADO CAD/3VD; Not a candidates for Intervention Cardiology following DM2 Labs Labs Laboratory Tests Test 12/01/18 11:29 12/01/18 16:43 12/01/18 20:49 12/02/18 04:45 Glucose (Fingerstick) 295 mg/dL (70-99) 224 mg/dL (70-99) 159 mg/dL (70-99) White Blood Count 5.8 x10^3/uL (4.0-11.0) Red Blood Count 3.27 x10^6/uL (3.50-5.40) Hemoglobin 9.4 g/dL (12.0-15.5) Hematocrit 28.2 % (36.0-47.0) Mean Corpuscular Volume 86 fL (79-100) Mean Corpuscular Hemoglobin 29 pg (25-35) Mean Corpuscular Hemoglobin Concent 33 g/dL (31-37) Red Cell Distribution Width 15.0 % (11.5-14.5) Platelet Count 152 x10^3/uL (140-400) Neutrophils (%) (Auto) 68 % (31-73) Lymphocytes (%) (Auto) 23 % (24-48) Monocytes (%) (Auto) 7 % (0-9) Eosinophils (%) (Auto) 2 % (0-3) Basophils (%) (Auto) 1 % (0-3) Neutrophils # (Auto) 3.9 x10^3uL (1.8-7.7) Lymphocytes # (Auto) 1.3 x10^3/uL (1.0-4.8) Monocytes # (Auto) 0.4 x10^3/uL (0.0-1.1) Eosinophils # (Auto) 0.1 x10^3/uL (0.0-0.7) Basophils # (Auto) 0.1 x10^3/uL (0.0-0.2) Sodium Level 141 mmol/L (136-145) Potassium Level 5.3 mmol/L (3.5-5.1) Chloride Level 110 mmol/L (98-107) Carbon Dioxide Level 17 mmol/L (21-32) Anion Gap 14 (6-14) Blood Urea Nitrogen 73 mg/dL (7-20) Creatinine 1.9 mg/dL (0.6-1.0) Estimated GFR (Cockcroft-Gault) 25.1 Glucose Level 178 mg/dL (70-99) Calcium Level 8.6 mg/dL (8.5-10.1) Test 12/02/18 08:26 12/02/18 11:23 12/02/18 17:38 12/02/18 20:18 Glucose (Fingerstick) 248 mg/dL (70-99) 249 mg/dL (70-99) 259 mg/dL (70-99) 273 mg/dL (70-99) Test 12/03/18 05:15 12/03/18 07:39 Sodium Level 141 mmol/L (136-145) Potassium Level 4.9 mmol/L (3.5-5.1) Chloride Level 108 mmol/L (98-107) Carbon Dioxide Level 22 mmol/L (21-32) Anion Gap 11 (6-14) Blood Urea Nitrogen 66 mg/dL (7-20) Creatinine 1.6 mg/dL (0.6-1.0) Estimated GFR (Cockcroft-Gault) 30.6 Glucose Level 273 mg/dL (70-99) Calcium Level 8.0 mg/dL (8.5-10.1) Glucose (Fingerstick) 277 mg/dL (70-99) Laboratory Tests Test 12/02/18 11:23 12/02/18 17:38 12/02/18 20:18 12/03/18 05:15 Glucose (Fingerstick) 249 mg/dL (70-99) 259 mg/dL (70-99) 273 mg/dL (70-99) Sodium Level 141 mmol/L (136-145) Potassium Level 4.9 mmol/L (3.5-5.1) Chloride Level 108 mmol/L (98-107) Carbon Dioxide Level 22 mmol/L (21-32) Anion Gap 11 (6-14) Blood Urea Nitrogen 66 mg/dL (7-20) Creatinine 1.6 mg/dL (0.6-1.0) Estimated GFR (Cockcroft-Gault) 30.6 Glucose Level 273 mg/dL (70-99) Calcium Level 8.0 mg/dL (8.5-10.1) Test 12/03/18 07:39 Glucose (Fingerstick) 277 mg/dL (70-99) Review All relevant outside records, renal labs, imaging studies, telemetry/EKG's were reviewed. Images Images IMPRESSION: Findings suggesting mild CHF. MAGALY STANLEY MD Dec 03, 2018 11:05
[2018-12-03] MEDS: cefTRIAXone IV Push 1 GM VIAL. IVP SCH (16:07)
[2018-12-03] MEDS: ATORVASTATIN CALCIUM 20 MG TABLET PO SCH (21:21)
[2018-12-04 02:06] VITALS: BP 155/71
[2018-12-04 07:00] VITALS: BP 195/84
[2018-12-04] MEDS: IPRATRPIUM/ALBUTEROL 0.5/2.5MG 3 ML NEBU. NEB SCH (07:31)
[2018-12-04] MEDS: CARVEDILOL 12.5 MG TABLET. PO SCH (08:14)
[2018-12-04] MEDS: INSULIN LISPRO 300 UNITS/3 ML INSULN.PEN. SQ SCH ×4 (08:17→12:37)
[2018-12-04] MEDS: CALCIUM CARB/VIT D3 500/200 TABLET. PO SCH (08:40)
[2018-12-04] MEDS: PREGABALIN 50 MG CAPSULE PO SCH (08:40)
[2018-12-04] MEDS: CLOPIDOGREL BISULFATE 75 MG TABLET PO SCH (08:40)
[2018-12-04] MEDS: LACTOBACILLUS RHAMNOSUS GG 1 CAPSULE. PO SCH (08:40)
[2018-12-04] MEDS: BUMETANIDE 1 MG TABLET. PO SCH (08:41)
[2018-12-04] MEDS: LOSARTAN POTASSIUM 50 MG TABLET. PO SCH (08:41)
[2018-12-04] MEDS: DOCUSATE SODIUM 100 MG CAPSULE. PO SCH (08:41)
[2018-12-04] MEDS: DICLOFENAC SODIUM 1% TOPICAL GEL 100GM TUBE. TP SCH ×2 (08:41→13:00)
[2018-12-04] MEDS: ISOSORBIDE MONONITRATE ER 30 MG TAB.ER.24H PO SCH (08:41)
--- NOTE | 2018-12-04 09:53 | PDOC ---
PROGRESS NOTES Subjective Subjective feels good ,wanting to go home Objective Objective Vital Signs Date Time Temp Pulse Resp B/P (MAP) Pulse Ox O2 Delivery O2 Flow Rate FiO2 12/04/18 08:41 79 183/80 12/04/18 08:00 Room Air 12/04/18 07:32 96 12/04/18 07:00 97.6 18 97.6 Intake and Output 12/04/18 07:00 Intake Total 656 ml Balance 656 ml Intake Oral 656 ml # Voids 7 # Bowel Movements 1 Physical Exam Abdomen: Normal bowel sounds Heart: Regular rate General: Alert, mild distress HEENT: Atraumatic Lungs: Clear to auscultation, Other (mildly decreased breath sounds) MUSCULOSKELETAL: No deformity, No swelling Psych/Mental Status: Mental status NL Skin: No breakdown Diagnosis Problem List Problems Medical Problems: (1) Elevated d-dimer Status: Acute (2) Urinary tract infection Status: Acute Assessment Assessment 1. Congestive heart failure, acute on chronic exacerbation. 2. Coronary artery disease, 3-vessel disease, not a candidate for revascularization. Medical management. 3. Recurrent urinary tract infections,h/o drug resistant uti. 4. Chronic kidney disease stage 3. 5. Insulin-dependent diabetes. 6. Breast carcinoma, left mastectomy. 7. History of hip fracture. 8. Hypertension. 9. Hyperlipidemia. 10. Hypothyroidism. PLAN: hopefully can d/c later today waiting for urine c/s.h/o drug resistant uti ECHO 40-45% cr 1,6 stable cxr mild chf urine c/s 100,000gram neg iv Rocephin. Low-dose sliding scale insulin. Lung V/Q scan is negative for pulmonary emboli. Renal function is stable Plan Plan of Care Problems Medical Problems: (1) Elevated d-dimer Status: Acute (2) Urinary tract infection Status: Acute Comment Review of Relevant I have reviewed the following items kathleen (where applicable) has been applied. Labs Laboratory Tests Test 12/03/18 11:58 12/03/18 16:55 12/03/18 20:19 12/04/18 07:38 Glucose (Fingerstick) 285 mg/dL (70-99) 159 mg/dL (70-99) 154 mg/dL (70-99) 233 mg/dL (70-99) Microbiology 11/29/18 Urine Culture - Preliminary, Resulted 11/29/18 Urine Culture Result 1 (AMADOU) - Preliminary, Resulted Vitals/I & O Vital Sign - Last 24 Hours 12/03/18 12/03/18 12/03/18 12/03/18 11:00 12:07 15:00 17:37 Temp 98.3 97.7 98.3 97.7 Pulse 76 69 70 Resp 14 14 B/P (MAP) 131/57 (81) 170/60 (96) 147/60 Pulse Ox 96 96 O2 Delivery Room Air Room Air Room Air 12/03/18 12/03/18 12/03/18 12/03/18 19:50 20:00 20:19 22:50 Temp 97.1 97.9 97.1 97.9 Pulse 65 69 Resp 16 17 B/P (MAP) 142/52 (82) 179/83 (115) Pulse Ox 96 97 O2 Delivery Room Air Room Air Room Air Room Air 12/04/18 12/04/18 12/04/18 12/04/18 02:06 07:00 07:32 08:00 Temp 97.9 97.6 97.9 97.6 Pulse 64 74 Resp 17 18 B/P (MAP) 155/71 (99) 195/84 (121) Pulse Ox 96 99 96 O2 Delivery Room Air Room Air Room Air Room Air 12/04/18 12/04/18 12/04/18 08:14 08:41 08:41 Pulse 79 79 79 B/P (MAP) 183/80 183/80 183/80 Intake and Output 12/03/18 12/03/18 12/04/18 15:00 23:00 07:00 Intake Total 236 ml 420 ml Balance 236 ml 420 ml JAMES CORCORAN MD Dec 04, 2018 09:53
[2018-12-04] MEDS ORDERED: BUME0.5T2 PO (09:57)
[2018-12-04] MEDS: ENOXAPARIN 30 MG/0.3 ML SYRINGE. SQ SCH (10:00)
--- NOTE | 2018-12-04 10:13 | PDOC ---
SUBJECTIVE ROS No complaints, OBJECTIVE Vital Signs Vital Signs Date Time Temp Pulse Resp B/P (MAP) Pulse Ox O2 Delivery O2 Flow Rate FiO2 12/04/18 08:41 79 183/80 12/04/18 08:00 Room Air 12/04/18 07:32 96 12/04/18 07:00 97.6 18 97.6 I & 0 Intake and Output 12/04/18 07:00 Intake Total 656 ml Balance 656 ml Intake Oral 656 ml # Voids 7 # Bowel Movements 1 PHYSICAL EXAM Physical Exam GEN: NAD HEENT: patient is blind in the left eye, OM moist NECK: Supple. CARDIOVASCULAR: S1, S2. No murmurs. LUNGS: CTA, Non labored ABDOMEN: Soft, bowel sounds present No Simpson, No CVA or SP tenderness EXTREMITIES: no edema. 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 Stable renal function ,E-Lytes stable, Monitor , No labs today Frequent hospitalizations Didn't keep OP follow up appt with renal Hyperkalemia- Mild at presentation Resolved Low K diet UTI- Per Primary Acute on chronic systolic CHF On PO Bumex , continue as OP , titrate based on wt , edema, BP, Resp symptoms Hx of Thoracentesis -in Aug 2018 (1200 Ml drained) HTN: Adrenals Normal on CT Renal Duplex in 2017- No e/o significant ALVARADO CAD/3VD; Not a candidates for Intervention Cardiology following DM2 COMMENT/RELEVANT DATA Meds Current Medications Medications (Trade) Dose Ordered Sig/Kyle Start Time Stop Time Status Last Admin Dose Admin Acetaminophen (Tylenol) 650 mg PRN Q4HRS PRN 11/29/18 20:30 11/30/18 20:29 DC Acetaminophen/ Codeine Phosphate (Tylenol #3) 1 tab PRN Q12HR PRN 11/30/18 09:45 12/03/18 08:45 1 TAB Albuterol/ Ipratropium (Duoneb) 3 ml TID 11/30/18 10:00 12/04/18 07:31 3 ML Aspirin (Gege Aspirin) 325 mg 1X ONCE 11/29/18 18:45 11/29/18 18:46 DC 11/29/18 18:45 325 MG Atorvastatin Calcium (Lipitor) 20 mg QHS 11/30/18 21:00 12/03/18 21:21 20 MG Bumetanide (Bumex) 0.5 mg 1X ONCE 11/30/18 10:00 11/30/18 10:01 DC 11/30/18 12:49 0.5 MG Calcium/Vitamin D (Oscal D 500mg/ 200uts) 1 tab DAILY 11/30/18 10:00 12/04/18 08:40 1 TAB Carvedilol (Coreg) 12.5 mg BIDWMEALS 11/30/18 10:00 12/04/18 08:14 12.5 MG Ceftriaxone Sodium (Rocephin) 1 gm Q24H 11/30/18 16:00 12/03/18 16:07 1 GM Clopidogrel Bisulfate (Plavix) 75 mg DAILY 11/30/18 10:00 12/04/18 08:40 75 MG Dexamethasone Sodium Phosphate (Decadron) 10 mg 1X ONCE 11/29/18 18:45 11/29/18 18:46 DC 11/29/18 18:51 10 MG Dextrose (Dextrose 50%-Water Syringe) 12.5 gm PRN Q15MIN PRN 11/30/18 09:45 Diclofenac Sodium (Voltaren) 1 opal QID 11/30/18 10:00 12/04/18 08:41 1 OPAL Docusate Sodium (Colace) 100 mg DAILY 11/30/18 10:00 12/04/18 08:41 100 MG Enoxaparin Sodium (Lovenox 30mg Syringe) 30 mg Q24H 11/30/18 10:00 12/03/18 10:42 30 MG Enoxaparin Sodium (Lovenox 60mg Syringe) 60 mg 1X ONCE 11/29/18 21:00 11/29/18 21:01 DC 11/29/18 21:07 60 MG Famotidine (Pepcid) 40 mg PRN DAILY PRN 11/30/18 21:00 Hydralazine HCl (Apresoline Inj) 10 mg 1X ONCE 11/30/18 08:15 11/30/18 08:16 DC 11/30/18 08:18 10 MG Insulin Glargine (Lantus) 20 units QHS 11/30/18 21:00 11/30/18 21:33 DC Insulin Human Lispro (HumaLOG) 0-8 UNITS TIDBFRMEAL 12/01/18 11:30 12/04/18 08:17 3 UNITS Isosorbide Mononitrate (Imdur) 30 mg DAILY 11/30/18 10:00 12/04/18 08:41 30 MG Labetalol HCl (Normodyne Iv Push) 10 mg 1X ONCE 11/29/18 19:15 11/29/18 19:16 DC 11/29/18 19:24 10 MG Lactobacillus Rhamnosus (Culturelle) 1 cap BID 12/01/18 09:00 12/04/18 08:40 1 CAP Levothyroxine Sodium (Synthroid) 100 mcg Fr@0600 11/30/18 10:00 11/30/18 12:50 100 MCG Losartan Potassium (Cozaar) 100 mg DAILY 11/30/18 10:00 12/04/18 08:41 100 MG Pregabalin (Lyrica) 50 mg BID 11/30/18 10:00 12/04/18 08:40 50 MG Lab Laboratory Tests Test 12/03/18 11:58 12/03/18 16:55 12/03/18 20:19 12/04/18 07:38 Glucose (Fingerstick) 285 mg/dL (70-99) 159 mg/dL (70-99) 154 mg/dL (70-99) 233 mg/dL (70-99) Results All relevant outside records, renal labs, imaging studies, telemetry/EKG's were reviewed. MAGALY STANLEY MD Dec 04, 2018 10:13
[2018-12-04 11:00] VITALS: BP 147/53
[2018-12-04] MEDS ORDERED: CEPH-264 PO (12:37)
--- NOTE | 2018-12-04 12:40 | SNU/HH DC ---
DISCHARGE WITH HOME HEALTH DISCHARGE INFORMATION: Discharge Date: Dec 04, 2018 Final Diagnosis: Problems Medical Problems: (1) Elevated d-dimer Status: Acute (2) Urinary tract infection Status: Acute Condition on Discharge: Stable CODE STATUS: Code Status: Full HOME HEALTH: Face to Face: I certify this patient is under my care and that I, or a nurse practitioner or physician's sales assistant displays working with me, had a face to face encounter that meets the physician face to face encounter requirements with this patient on []. Medical Complications: CHF RN For Eval/Treatment: Yes Physical Therapy For: Evalulation/Treatment Home Health Aide For: Self-care VICE PRESIDENT SAFETY For: Community Resources Pt Meets Homebound Status: Fatigue w/ amb. POST DISCHARGE ORDERS: Activity Instructions for Disc: Activity as tolerated Weight Bearing Status after Di: No restrictions Bathing Instructions: No Tub Bath until see Dr. PORTER AFTER DISCHARGE: Cardiac Wound/Incision Care: Ice to area for comfort, Change dressing, Routine catheter care CHECKS AFTER DISCHARGE: Checks after discharge: Check blood sugar, ac/hs TREATMENT/EQUIPMENT ORDERS: Adaptive Equipment Issued: Walker Discharge Respiratory Equipmen: Oxygen CERTIFICATION STATEMENT: Certification Statement: Certification Statement: Based on the above finding, I certify that this patient is confined to the home and needs intermittent care home care, physical therapy and/or speech therapy, or continues to need occupational therapy.~ This patient is under my care, and I have initiated the establishment of the plan of care.~ This patient will be followed by myself or a community physician who will periodically review the plan of care. Home Meds Active Scripts Cephalexin (KEFLEX) 500 Mg Capsule, 1 CAP PO BID for uti, #14 CAP Prov:JAMES CORCORAN MD 12/04/18 Bumetanide (BUMETANIDE) 0.5 Mg Tablet, 0.5 MG PO BID for chf for 30 Days, #60 TAB Prov:JAMES CORCORAN MD 12/04/18 Carvedilol (CARVEDILOL ) 12.5 Mg Tablet, 12.5 MG PO BIDWMEALS for cad for 30 Days, #60 TAB Prov:JAMES CORCORAN MD 07/23/18 Isosorbide Mononitrate (ISOSORBIDE MONONITRATE ER) 30 Mg Tab.er.24h, 30 MG PO DAILY for 30 Days, TAB 3 Refills Prov:JAMES CORCORAN MD 08/18/16 Atorvastatin Calcium (ATORVASTATIN CALCIUM) 20 Mg Tablet, 20 MG PO QHS for 30 Days, TAB 2 Refills Prov:JAMES CORCORAN MD 08/18/16 Reported Medications Diclofenac Sodium (VOLTAREN) 100 Gm Gel..gram., 1 GM TP QID for PAIN, #100 GM 2 Refills 11/30/18 Ferrous Sulfate (FERROUS SULFATE) 325 Mg Tablet, 325 MG PO DAILY for BLOOD, TAB 11/30/18 Levothyroxine Sodium (LEVOTHYROXINE SODIUM) 100 Mcg Tablet, 1 TAB PO QFR for thyroid, #30 TAB 5 Refills 08/30/18 Clopidogrel Bisulfate (CLOPIDOGREL) 75 Mg Tablet, 75 MG PO DAILY for TO PREVENT BLOOD CLOTS, #30 TAB 0 Refills 06/04/18 Pregabalin (LYRICA) 50 Mg Capsule, 1 CAP PO BID for pain, #90 CAP 06/04/18 Famotidine (PEPCID) 40 Mg Tablet, 40 MG PO DAILY PRN for HEARTBURN / GAS, TAB 06/04/18 Ipratropium/Albuterol Sulfate (DUONEB 0.5-3(2.5) MG/3 ML) 3 Ml Ampul.neb, 3 ML NEB TID for difficulty breathing, EACH 06/04/18 Nitroglycerin (NITROGLYCERIN SubLingual) 0.4 Mg Tab.subl, 1 TAB SL UD PRN for prn, #25 TAB 3 Refills 06/04/18 Acetaminophen With Codeine (TYLENOL WITH CODEINE #3 TABLET) 1 Each Tablet, 1 TAB PO PRN Q12HR PRN for PAIN, TAB 06/04/18 Losartan Potassium (LOSARTAN POTASSIUM) 100 Mg Tablet, 100 MG PO DAILY for HEART, TAB 01/21/18 Insulin Lispro (HUMALOG) 100 Unit/1 Ml Cartridge, 15 UNIT SQ TIDWMEALS, EACH 01/21/18 Docusate Sodium (DOCUSATE SODIUM) 100 Mg Capsule, 1 CAP PO DAILY, #30 CAP 01/21/18 Calcium Carbonate/Vitamin D3 (CALCIUM + VITAMIN D TABLET) 1 Each Tablet, 1 EACH PO DAILY for BONES, TAB 01/21/18 Insulin Glargine,Hum.rec.anlog (LANTUS) 100 Unit/1 Ml Vial, 35 UNIT SQ HS, VIAL 1/17/17 Discontinued Reported Medications Levothyroxine Sodium (SYNTHROID) 50 Mcg Tablet, 1 TAB PO DAILY06 for thyroid, #30 TAB 5 Refills 07/19/16 JAMES COROCRAN MD Dec 04, 2018 12:40
--- NOTE | 2018-12-04 13:13 | NUR ---
SS following up with discharge planning. Discharge orders for home healthcare received. SS phoned and faxed orders for home healthcare to [facility], ; fax [phone]. Pt's RN notified.
--- NOTE | 2018-12-04 13:40 | NUR ---
Discharge Note: [facility] Discharge instructions and discharge home medications reviewed with Patient and patient's daughter. Prescriptions called in to preferred pharmacy. All questions have been answered and understanding verbalized. The following instructions and handouts were given: UTI and heart failure Discontinued lines and drains: Peripheral IV intact. Patient discharged to Home or Self Care with Family Member via Wheelchair
--- NOTE | 2018-12-05 15:03 | PDOC ---
Provider Note Provider Note Discharge summary dictated. #[id number]. JAMES CORCORAN MD Dec 05, 2018 15:03
--- NOTE | 2018-12-06 02:43 | DS ---
DATE OF DISCHARGE: 12/04/2018 REASON FOR ADMISSION TO THE HOSPITAL: Congestive heart failure, acute on chronic. CONSULTATIONS: Dr. Oneal; Dr. Zambrano, Renal. PROCEDURES DONE: Echocardiogram and V/Q scan. HOSPITAL COURSE: The patient is an 88-year-old female who has coronary artery disease, 3-vessel disease, chronic systolic heart failure. She was having more shortness of breath and was brought to the hospital. She also had recurrent UTIs, multidrug-resistant UTIs in the past. She has also diabetes, insulin-dependent. Was admitted to the hospital with congestive heart failure, BNP was elevated, was given IV Bumex and her condition improved. Unfortunately, her BUN and creatinine went up, was seen by Renal. At the time of admission, her D-dimer was elevated. Had a V/Q scan, which was negative for PE. White count was 5, hemoglobin 9, platelets 141. Her BUN remained stable at 66, creatinine 1.6, which is at baseline. Urine shows nitrites and leukocytes were positive. Urine culture shows Klebsiella pneumonia. The patient was treated with Rocephin, changed it to cefazolin. It was sensitive to cefazolin. Otherwise, the patient's condition remained stable. She was discharged. The patient had echocardiogram, which shows 40-45% systolic function. FINAL DIAGNOSES: 1. Combined systolic and diastolic heart failure, acute on chronic. 2. Three-vessel coronary artery disease, medical treatment, not a candidate for revascularization. 3. Insulin-dependent diabetes. 4. 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 5. Hypertension. 6. Hyperlipidemia. 7. Hypothyroidism. 8. History of breast cancer, status post mastectomy. 9. Klebsiella UTI DISPOSITION: Home. See MRAD for discharge medications. Home with home health. JAMES CORCORAN MD DR: ADRIANA/liang JOB#: [id number] / [id number] FERNANDO
== END 2018-12-04 13:50 | disposition home health service (06) | DRG 291 ==
LOC: ER 18:16 → 2 SOUTH 20:15
PROVIDERS: ADMIT Internal Medicine; ATTEND Internal Medicine
DX: I13.0 Hypertensive heart and chronic kidney disease with heart failure and stage 1 through stage 4 chronic kidney disease, or unspecified chronic kidney disease (principal); I50.23 Acute on chronic systolic (congestive) heart failure; N39.0 Urinary tract infection, site not specified; F32.9 Major depressive disorder, single episode, unspecified; I25.5 Ischemic cardiomyopathy; F41.9 Anxiety disorder, unspecified; G89.29 Other chronic pain; M19.90 Unspecified osteoarthritis, unspecified site; E11.22 Type 2 diabetes mellitus with diabetic chronic kidney disease; E03.9 Hypothyroidism, unspecified; I25.10 Atherosclerotic heart disease of native coronary artery without angina pectoris; E78.5 Hyperlipidemia, unspecified; Z96.642 Presence of left artificial hip joint; E78.00 Pure hypercholesterolemia, unspecified; N18.3 Chronic kidney disease, stage 3 (moderate); I27.21 Secondary pulmonary arterial hypertension; K21.9 Gastro-esophageal reflux disease without esophagitis; E11.649 Type 2 diabetes mellitus with hypoglycemia without coma; Z90.49 Acquired absence of other specified parts of digestive tract; Z79.4 Long term (current) use of insulin; Z83.3 Family history of diabetes mellitus; Z85.3 Personal history of malignant neoplasm of breast; Z87.440 Personal history of urinary (tract) infections; Z87.81 Personal history of (healed) traumatic fracture; Z87.891 Personal history of nicotine dependence; Z90.12 Acquired absence of left breast and nipple; Z91.19 Patient's noncompliance with other medical treatment and regimen; Z79.899 Other long term (current) drug therapy
CPT/HCPCS: 36415; 71046; 78582; 80048; 80053; 81001; 82553; 82962; 83605; 83735; 83880; 84484; 85025; 85379; 87086; 87186; 93005; 93306; 94640; 94760; 96372; 96374; 96375; A9540; A9558; J0360; J0696; J1100; J1650; J1815; J3490; J7042; J7620; 97116; 97530; 99285-25

== ENCOUNTER 2018-12-25 16:15 | Inpatient (IN) | payer MEDICARE, OTHER ==
[~2018-12-25] VITALS: Ht 152.4 cm; Wt 64.2 kg
[~2018-12-25 16:15] MED LIST changes: +BUME0.5T2 PO; +DICL100G18 TP; +LIDO700A21 TP; -LIDO700A39 TP; -PANT40TA3 PO; +PANT40TA77 PO
[2018-12-25] MEDS ORDERED: DEXTROSE 50% 25 GM / 50ML DISP.SYRIN. IV PRN (17:00)
[2018-12-25] MEDS ORDERED: ENOXAPARIN 40 MG/0.4 ML SYRINGE. SQ SCH (17:00)
[2018-12-25] MEDS: INSULIN LISPRO 300 UNITS/3 ML INSULN.PEN. SQ SCH ×2 (17:00→18:06)
[2018-12-25] MEDS ORDERED: ACETAMINOPHEN/CODEINE 300/30MG TABLET. PO PRN (17:00)
[2018-12-25] MEDS: CARVEDILOL 12.5 MG TABLET. PO SCH (17:00)
[2018-12-25 19:00] VITALS: BP 146/60
[2018-12-25] MEDS ORDERED: MEROPENEM 500 MG in IV NORMAL SALINE 50ML 50 ML IV SCH (19:00)
[2018-12-25 19:26] LABS: BASO % 1 % (0-3); EOS # 0.1 x10^3/uL (0.0-0.7); EOS % 3 % (0-3); HEMATOCRIT 27.9 % (36.0-47.0); HEMOGLOBIN 9.7 g/dL (12.0-15.5); LYMPH # 0.8 x10^3/uL (1.0-4.8); LYMPH % 15 % (24-48); MEAN CORPUSCULAR HEMOGLOBIN 30 pg (25-35); MEAN CORPUSCULAR HGB CONC 35 g/dL (31-37); MEAN CORPUSCULAR VOLUME 85 fL (79-100); MONO # 0.2 x10^3/uL (0.0-1.1); MONO % 5 % (0-9); NEUT # 4.2 x10^3uL (1.8-7.7); NEUT % 78 % (31-73); PLATELET COUNT 139 x10^3/uL (140-400); RED BLOOD COUNT 3.27 x10^6/uL (3.50-5.40); RED CELL DISTRIBUTION WIDTH 14.5 % (11.5-14.5); WHITE BLOOD COUNT 5.5 x10^3/uL (4.0-11.0)
[2018-12-25 19:44] LABS: ALBUMIN 3.5 g/dL (3.4-5.0); ALBUMIN/GLOBULIN RATIO 1.1 (1.0-1.7); CALCIUM 8.8 mg/dL (8.5-10.1); GFR 23.6; TOTAL BILIRUBIN 0.2 mg/dL (0.2-1.0); TOTAL PROTEIN 6.8 g/dL (6.4-8.2)
[2018-12-25] MEDS: IPRATRPIUM/ALBUTEROL 0.5/2.5MG 3 ML NEBU. NEB SCH (20:27)
[2018-12-25] MEDS: ATORVASTATIN CALCIUM 20 MG TABLET PO SCH (20:45)
[2018-12-25] MEDS: PREGABALIN 50 MG CAPSULE PO SCH ×2 (20:46→22:10)
[2018-12-25] MEDS: ENOXAPARIN 30 MG/0.3 ML SYRINGE. SQ SCH (20:47)
[2018-12-25] MEDS: INSULIN GLARGINE 300 UNITS/3 ML INSULN.PEN. SQ SCH (20:48)
[2018-12-25] MEDS ORDERED: NON FORMULARY ITEM (Cephalexin (Keflex) 1 CAP) PO SCH (21:00)
[2018-12-25] MEDS ORDERED: FAMOTIDINE 20 MG TABLET. PO PRN (21:00)
[2018-12-25] MEDS ORDERED: IV NORMAL SALINE 500ML BAG 500 ML IV ONE (22:00)
[2018-12-25] MEDS: DICLOFENAC SODIUM 1% TOPICAL GEL 100GM TUBE. TP SCH (22:08)
[2018-12-25 23:02] VITALS: BP 162/54
[2018-12-26] MEDS: IV NORMAL SALINE 1000ML BAG 1,000 ML IV SCH ×2 (00:16→15:44)
[2018-12-26 03:00] VITALS: BP 139/60
[2018-12-26 04:10] LABS: BASO % 1 % (0-3); EOS # 0.2 x10^3/uL (0.0-0.7); EOS % 3 % (0-3); HEMATOCRIT 25.1 % (36.0-47.0); HEMOGLOBIN 8.6 g/dL (12.0-15.5); LYMPH # 0.9 x10^3/uL (1.0-4.8); LYMPH % 18 % (24-48); MEAN CORPUSCULAR HEMOGLOBIN 29 pg (25-35); MEAN CORPUSCULAR HGB CONC 34 g/dL (31-37); MEAN CORPUSCULAR VOLUME 85 fL (79-100); MONO # 0.3 x10^3/uL (0.0-1.1); MONO % 7 % (0-9); NEUT # 3.7 x10^3uL (1.8-7.7); NEUT % 72 % (31-73); PLATELET COUNT 123 x10^3/uL (140-400); RED BLOOD COUNT 2.95 x10^6/uL (3.50-5.40); RED CELL DISTRIBUTION WIDTH 14.3 % (11.5-14.5); WHITE BLOOD COUNT 5.2 x10^3/uL (4.0-11.0)
[2018-12-26 04:25] LABS: CALCIUM 8.6 mg/dL (8.5-10.1); CREATININE 1.6 mg/dL (0.6-1.0); GFR 30.6; POTASSIUM 4.9 mmol/L (3.5-5.1)
[2018-12-26 07:00] VITALS: BP 158/48
[2018-12-26] MEDS: IPRATRPIUM/ALBUTEROL 0.5/2.5MG 3 ML NEBU. NEB SCH ×3 (07:23→19:45)
--- NOTE | 2018-12-26 07:46 | RAD ---
Portable chest, 12/25/2018: HISTORY: Congestive heart failure Comparison is made to a study from 11/29/2018. The heart is mildly enlarged. There is calcific plaquing the aorta. There is minimal parenchymal scarring. No acute infiltrate is seen. There is no evidence of pleural fluid. IMPRESSION: 1. Mild cardiomegaly. 2. No acute cardiopulmonary abnormality is detected. Electronically signed by: Wil Escudero MD (12/26/2018 7:43 AM) [facility]
--- NOTE | 2018-12-26 08:39 | EKG ---
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
[2018-12-26] MEDS: DICLOFENAC SODIUM 1% TOPICAL GEL 100GM TUBE. TP SCH ×4 (09:00→20:55)
[2018-12-26] MEDS ORDERED: BUMETANIDE 1 MG TABLET. PO SCH (09:00)
--- NOTE | 2018-12-26 10:05 | PDOC ---
Provider Note Provider Note Pt seen ,H&P dictated.#[id number]. JAMES CORCORAN MD Dec 26, 2018 10:05
[2018-12-26] MEDS: CALCIUM CARB/VIT D3 500/200 TABLET. PO SCH (10:15)
[2018-12-26] MEDS: CLOPIDOGREL BISULFATE 75 MG TABLET PO SCH (10:15)
[2018-12-26] MEDS: ISOSORBIDE MONONITRATE ER 30 MG TAB.ER.24H PO SCH (10:16)
[2018-12-26] MEDS: PREGABALIN 50 MG CAPSULE PO SCH ×2 (10:17→20:48)
[2018-12-26] MEDS: LOSARTAN POTASSIUM 50 MG TABLET. PO SCH (10:17)
[2018-12-26] MEDS: FERROUS SULFATE 325 MG TABLET. PO SCH (10:18)
[2018-12-26] MEDS: DOCUSATE SODIUM 100 MG CAPSULE. PO SCH (10:18)
[2018-12-26] MEDS: CARVEDILOL 12.5 MG TABLET. PO SCH ×2 (10:18→17:20)
[2018-12-26] MEDS: INSULIN LISPRO 300 UNITS/3 ML INSULN.PEN. SQ SCH ×6 (10:19→17:27)
[2018-12-26] MEDS: MEROPENEM 500 MG in IV NORMAL SALINE 50ML 50 ML IV SCH ×2 (10:20→20:51)
--- NOTE | 2018-12-26 10:37 | HP ---
ADMIT DATE: 12/25/2018 MEDICAL HISTORY AND PHYSICAL PATIENT LOCATION: [facility]. REASON FOR ADMISSION TO THE HOSPITAL: Multidrug-resistant E. coli and Klebsiella multi-resistant urinary tract infection, acute on chronic renal insufficiency. HISTORY OF PRESENT ILLNESS: The patient is an 88-year-old female, has weak bladder, incontinent, she also has recurrent UTIs. She had a urine which was sent last week and it shows multidrug-resistant E. coli and Klebsiella, which is only sensitive to IV antibiotics, meropenem and amikacin. The patient was admitted to the hospital for IV antibiotics. She also was found to have acute on chronic renal insufficiency. She is usually around BUN 40, creatinine 1.5. This time, BUN was 80, creatinine was 2. She was given IV fluids, started on meropenem IV and asked for a PICC line, so she could get rest of the antibiotics at home. PAST MEDICAL HISTORY: She was multiple times in the hospital, has coronary artery disease, 3-vessel, medical management; congestive heart failure, 40% ejection fraction and she also has diabetes, hypertension, hyperlipidemia, history of breast cancer, hip fracture and anxiety, depression, hypothyroidism. PAST SURGICAL HISTORY: Left mastectomy for breast cancer, left hip replacement because of the fall. 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 ALLERGIES: No known drug allergies. MEDICATIONS: She is on Tylenol with codeine for pain twice a day, atorvastatin 20 mg daily, bumetanide 0.5 mg twice a day, vitamin D with calcium daily, Coreg 12.5 twice a day, Plavix 75 mg daily, Voltaren 1 gram 4 times daily local application, Colace 100 mg daily, Pepcid 40 mg daily, iron 325 daily, insulin 35 units at bedtime, 15 units of NovoLog with each meal, DuoNeb 4 times daily, isosorbide 30 mg daily, levothyroxine 100 mcg daily, losartan 100 mg daily, Lyrica 50 mg twice a day, sublingual nitro p.r.n. PERSONAL HISTORY: No history of smoking, alcohol, drug abuse. SOCIAL HISTORY: Lives with her daughter. She has a home health. FOURTEEN-SYSTEM REVIEW: Denies any chest pain, shortness of breath; complains of feeling weak and irritation in the bladder. Rest of the 14-system was reviewed and negative. PHYSICAL EXAMINATION: VITAL SIGNS: At the time of admission shows a temperature 98, pulse 73, respirations 18, blood pressure 160/52, 98 on room air. HEENT: Head is atraumatic. Pupils are equal. Oral cavity, dentures. NECK: Supple. Thyroid not enlarged. JVD not elevated. CHEST: Left mastectomy. Right breast, no mass palpable. LUNGS: Clear. CARDIOVASCULAR: S1 and S2. ABDOMEN: Soft, no mass palpable. EXTERNAL GENITALIA: No Simpson. RECTAL: Deferred. EXTREMITIES: The patient had a bypass to lower extremities bilateral. 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 NEUROLOGIC: Moving all extremities. No focal deficit noted. LABORATORY DATA AND DIAGNOSTIC STUDIES: Shows a white count of 5.5, hemoglobin 9.7, platelets 139 and also shows sodium 138, potassium 5.0, chloride 106, bicarb 23, BUN 88, creatinine 2.0, glucose 159. LFTs were normal. Chest x-ray; mild cardiomegaly, no acute abnormality. EKG done, report is pending. FINAL IMPRESSION: 1. Multidrug-resistant recurrent urinary tract infections. The patient has a drug resistant Escherichia coli and Klebsiella, only sensitive to meropenem and amikacin IV antibiotics. The patient was admitted for IV antibiotics. 2. Acute on chronic renal insufficiency. 3. Chronic kidney failure, stage 3-4. 4. Diabetes. 5. Hypertension. 6. Hyperlipidemia. 7. Hypothyroidism. 8. Coronary artery disease, 3-vessel disease, medical management. 9. History of chronic systolic heart failure, ejection fraction 40%. 10. History of previous peripheral vascular disease, previous bypass surgeries on both legs as well as amputation of the toes, healed well. PLAN: At this time, admit to hospital, hydrate with IV fluids, meropenem q 12 hours IV and have a PICC line, probably she could finish rest of the course at home with home IV antibiotics.total 7 day treatment. JAMES CORCORAN MD DR: ADRIANA/liang JOB#: [id number] / [id number] FERNANDO
[2018-12-26 10:44] VITALS: BP 168/46
--- NOTE | 2018-12-26 11:23 | NUR ---
KASI notified by RN pt will need IV Meropenem 500mg q12hrs for 7 days upon dc. KASI phoned and faxed referral to [facility] and pt's home health agency, [facility]. KASI spoke with Susan from [facility] who reported they have been working with family to admit pt to their hospice care and family is agreeable. KASI discussed plan for IV abx and Susan will verify if they can admit pt on hospice while she is still on IV abx. [facility] will notify KASI with benefits for IV abx. SW continue to follow.
[2018-12-26 14:32] VITALS: BP 157/47
--- NOTE | 2018-12-26 16:16 | NUR ---
SW following pt. Pt has 100% coverage for IV abx and Susan at [facility] advised they will keep pt on home health until IV abx is complete and transition her into hospice. KASI requested for Rx for IV abx.
[2018-12-26 19:00] VITALS: BP 168/59
[2018-12-26] MEDS: LACTOBACILLUS RHAMNOSUS GG 1 CAPSULE. PO SCH (20:48)
[2018-12-26] MEDS: ATORVASTATIN CALCIUM 20 MG TABLET PO SCH (20:48)
[2018-12-26] MEDS: ENOXAPARIN 30 MG/0.3 ML SYRINGE. SQ SCH (20:48)
[2018-12-26] MEDS: INSULIN GLARGINE 300 UNITS/3 ML INSULN.PEN. SQ SCH (20:49)
[2018-12-26 22:48] VITALS: BP 150/43
[2018-12-27 02:54] VITALS: BP 159/55
[2018-12-27 05:08] LABS: CALCIUM 8.1 mg/dL (8.5-10.1); CREATININE 1.3 mg/dL (0.6-1.0); GFR 38.8; POTASSIUM 4.8 mmol/L (3.5-5.1)
[2018-12-27] MEDS: IV NORMAL SALINE 1000ML BAG 1,000 ML IV SCH (05:09)
[2018-12-27 07:00] VITALS: BP 138/40
[2018-12-27] MEDS: IPRATRPIUM/ALBUTEROL 0.5/2.5MG 3 ML NEBU. NEB SCH ×2 (07:57→11:27)
[2018-12-27] MEDS: INSULIN LISPRO 300 UNITS/3 ML INSULN.PEN. SQ SCH ×4 (08:00→12:50)
[2018-12-27] MEDS ORDERED: LIDOCAINE WITH 8.4% SOD BICARB 3 ML DISP.SYRIN. ONE (08:28)
[2018-12-27] MEDS ORDERED: LIDOCAINE WITH 8.4% SOD BICARB 3 ML DISP.SYRIN. INJ ONE (09:00)
[2018-12-27] MEDS: DOCUSATE SODIUM 100 MG CAPSULE. PO SCH (09:43)
[2018-12-27] MEDS: LACTOBACILLUS RHAMNOSUS GG 1 CAPSULE. PO SCH (09:43)
[2018-12-27] MEDS: CLOPIDOGREL BISULFATE 75 MG TABLET PO SCH (09:43)
[2018-12-27] MEDS: PREGABALIN 50 MG CAPSULE PO SCH (09:43)
[2018-12-27] MEDS: ISOSORBIDE MONONITRATE ER 30 MG TAB.ER.24H PO SCH (09:44)
[2018-12-27] MEDS: CALCIUM CARB/VIT D3 500/200 TABLET. PO SCH (09:44)
[2018-12-27] MEDS: LOSARTAN POTASSIUM 50 MG TABLET. PO SCH (09:45)
[2018-12-27] MEDS: FERROUS SULFATE 325 MG TABLET. PO SCH (09:45)
[2018-12-27] MEDS: MEROPENEM 500 MG in IV NORMAL SALINE 50ML 50 ML IV SCH (09:46)
[2018-12-27] MEDS: CARVEDILOL 12.5 MG TABLET. PO SCH (09:46)
[2018-12-27] MEDS: DICLOFENAC SODIUM 1% TOPICAL GEL 100GM TUBE. TP SCH ×2 (09:47→12:50)
--- NOTE | 2018-12-27 10:03 | PDOC ---
PROGRESS NOTES Subjective Subjective just back from picc line placement Objective Objective Vital Signs Date Time Temp Pulse Resp B/P (MAP) Pulse Ox O2 Delivery O2 Flow Rate FiO2 12/27/18 09:46 50 138/40 12/27/18 07:58 92 Room Air 12/27/18 07:00 98.1 18 98.1 Intake and Output 12/27/18 07:00 Intake Total 350 ml Balance 350 ml Intake Oral 300 ml IV Total 50 ml # Voids 5 # Bowel Movements 1 Physical Exam Abdomen: Normal bowel sounds, Soft Heart: Regular rate, Normal S1 Extremities: No clubbing General: Alert HEENT: Atraumatic Lungs: Clear to auscultation MUSCULOSKELETAL: No deformity, No swelling Neuro: Normal gait Psych/Mental Status: Mental status NL Skin: No breakdown Assessment Assessment FINAL IMPRESSION: 1. Multidrug-resistant recurrent urinary tract infections. The patient has a drug resistant Escherichia coli and Klebsiella, only sensitive to meropenem and amikacin IV antibiotics. The patient was admitted for IV antibiotics. 2. Acute on chronic renal insufficiency. 3. Chronic kidney failure, stage 3-4. 4. Diabetes. 5. Hypertension. 6. Hyperlipidemia. 7. Hypothyroidism. 8. Coronary artery disease, 3-vessel disease, medical management. 9. History of chronic systolic heart failure, ejection fraction 40%. 10. History of previous peripheral vascular disease, previous bypass surgeries on both legs as well as amputation of the toes, healed well. PLAN: picc line placed d/c home on meropenum 500 mg q 12 h for 5 days. cr 1.3 improved. home health At this time, admit to hospital, hydrate with IV fluids, meropenem q 12 hours IV and have a PICC line, probably she could finish rest of the course at home with home IV antibiotics.total 7 day treatment. Comment Review of Relevant I have reviewed the following items kathleen (where applicable) has been applied. Labs Laboratory Tests Test 12/26/18 11:51 12/26/18 16:35 12/26/18 20:33 12/27/18 03:40 Glucose (Fingerstick) 202 mg/dL (70-99) 268 mg/dL (70-99) 198 mg/dL (70-99) Sodium Level 142 mmol/L (136-145) Potassium Level 4.8 mmol/L (3.5-5.1) Chloride Level 111 mmol/L (98-107) Carbon Dioxide Level 21 mmol/L (21-32) Anion Gap 10 (6-14) Blood Urea Nitrogen 66 mg/dL (7-20) Creatinine 1.3 mg/dL (0.6-1.0) Estimated GFR (Cockcroft-Gault) 38.8 Glucose Level 143 mg/dL (70-99) Calcium Level 8.1 mg/dL (8.5-10.1) Test 12/27/18 07:42 Glucose (Fingerstick) 77 mg/dL (70-99) Medications Current Medications Lactobacillus Rhamnosus (Culturelle) 1 cap BID PO Last administered on 12/27/18at 09:43; Start 12/26/18 at 21:00 Levothyroxine Sodium (Synthroid) 100 mcg QFR PO ; Start 12/28/18 at 16:00 Lidocaine/Sodium Bicarbonate (Buffered Lidocaine 1%) 3 ml STK-MED ONCE .ROUTE ; Start 12/27/18 at 08:28; Stop 12/27/18 at 08:29; Status DC Lidocaine/Sodium Bicarbonate (Buffered Lidocaine 1%) 6 ml 1X ONCE INJ Last administered on 12/27/18at 09:10; Start 12/27/18 at 09:00; Stop 12/27/18 at 09:08; Status DC Vitals/I & O Vital Sign - Last 24 Hours 12/26/18 12/26/18 12/26/18 12/26/18 10:16 10:17 10:18 10:44 Temp 98.1 98.1 Pulse 68 68 68 68 Resp 17 B/P (MAP) 168/46 168/46 168/46 168/46 (86) Pulse Ox 98 O2 Delivery Room Air 12/26/18 12/26/18 12/26/18 12/26/18 13:20 14:32 17:20 19:00 Temp 98.2 97.4 98.2 97.4 Pulse 68 67 68 Resp 18 15 B/P (MAP) 157/47 (83) 158/67 168/59 (95) Pulse Ox 96 96 O2 Delivery Room Air Room Air Room Air 12/26/18 12/26/18 12/26/18 12/26/18 19:49 20:00 20:59 22:48 Temp 98.3 98.3 Pulse 72 Resp 15 B/P (MAP) 150/43 (78) Pulse Ox 100 O2 Delivery Room Air Room Air Room Air Room Air 12/27/18 12/27/18 12/27/18 12/27/18 02:54 07:00 07:58 09:44 Temp 98.7 98.1 98.7 98.1 Pulse 52 50 50 Resp 16 18 B/P (MAP) 159/55 (89) 138/40 (72) 138/40 Pulse Ox 96 94 92 O2 Delivery Room Air Room Air Room Air 12/27/18 12/27/18 09:45 09:46 Pulse 50 50 B/P (MAP) 138/40 138/40 Intake and Output 12/26/18 12/26/18 12/27/18 15:00 23:00 07:00 Intake Total 50 ml 300 ml Balance 50 ml 300 ml JAMES CORCORAN MD Dec 27, 2018 10:03
[2018-12-27] MEDS ORDERED: MERO500V15 IV (10:07)
--- NOTE | 2018-12-27 10:09 | SNU/HH DC ---
DISCHARGE WITH HOME HEALTH DISCHARGE INFORMATION: Discharge Date: Dec 27, 2018 Condition on Discharge: Stable CODE STATUS: Code Status: Full HOME HEALTH: Face to Face: I certify this patient is under my care and that I, or a nurse practitioner or herlinda hernández's assistant family teacher working with me, had a face to face encounter that meets the physician face to face encounter requirements with this patient on []. Medical Complications: CHF RN For Eval/Treatment: Yes Physical Therapy For: Evalulation/Treatment Occupational Therapy For: Evaluation/Treatment Pt Meets Homebound Status: Poor coordination w/ amb. POST DISCHARGE ORDERS: Activity Instructions for Disc: No restrictions, Activity as tolerated Weight Bearing Status after Di: No restrictions, As tolerated Bathing Instructions: No Tub Bath until see DIET AFTER DISCHARGE: Cardiac Wound/Incision Care: Ice to area for comfort, Change dressing, Routine catheter care Other wound/incision instructi: picc line care CHECKS AFTER DISCHARGE: Checks after discharge: Check blood press - daily, Check blood sugar, ac/hs Comment: iv antibiotics for 5 days,d/c picc line after that TREATMENT/EQUIPMENT ORDERS: Adaptive Equipment Issued: [facility], home use: PICC Line Discharge Respiratory Equipmen: Oxygen CERTIFICATION STATEMENT: Certification Statement: Certification Statement: Based on the above finding, I certify that this patient is confined to the home and needs intermittent longterm care, physical t herapy and/or speech therapy, or continues to need occupational therapy.~ This patient is under my care, and I have initiated the establishment of the plan of care.~ This patient will be followed by myself or a community physician who will periodically review the plan of care. Home Meds Active Scripts Meropenem (MEROPENEM) 500 Mg Vial, 500 MG IV BID for uti for 5 Days, #10 EACH Prov:JAMES CORCORAN MD 12/27/18 Bumetanide (BUMETANIDE) 0.5 Mg Tablet, 0.5 MG PO BID for chf for 30 Days, #60 TAB Prov:JAMES CORCORAN MD 12/04/18 Carvedilol (CARVEDILOL ) 12.5 Mg Tablet, 12.5 MG PO BIDWMEALS for cad for 30 Days, #60 TAB Prov:JAMES CORCORAN MD 07/23/18 Isosorbide Mononitrate (ISOSORBIDE MONONITRATE ER) 30 Mg Tab.er.24h, 30 MG PO DAILY for 30 Days, TAB 3 Refills Prov:JAMES CORCORAN MD 08/18/16 Atorvastatin Calcium (ATORVASTATIN CALCIUM) 20 Mg Tablet, 20 MG PO QHS for 30 Days, TAB 2 Refills Prov:JAMES CORCORAN MD 08/18/16 Reported Medications Diclofenac Sodium (VOLTAREN) 100 Gm Gel..gram., 1 GM TP QID for PAIN, #100 GM 2 Refills 11/30/18 Ferrous Sulfate (FERROUS SULFATE) 325 Mg Tablet, 325 MG PO DAILY for BLOOD, TAB 11/30/18 Levothyroxine Sodium (LEVOTHYROXINE SODIUM) 100 Mcg Tablet, 1 TAB PO QFR for thyroid, #30 TAB 5 Refills 08/30/18 Clopidogrel Bisulfate (CLOPIDOGREL) 75 Mg Tablet, 75 MG PO DAILY for TO PREVENT BLOOD CLOTS, #30 TAB 0 Refills 06/04/18 Pregabalin (LYRICA) 50 Mg Capsule, 1 CAP PO BID for pain, #90 CAP 06/04/18 Famotidine (PEPCID) 40 Mg Tablet, 40 MG PO DAILY PRN for HEARTBURN / GAS, TAB 06/04/18 Ipratropium/Albuterol Sulfate (DUONEB 0.5-3(2.5) MG/3 ML) 3 Ml Ampul.neb, 3 ML NEB TID for difficulty breathing, EACH 06/04/18 Nitroglycerin (NITROGLYCERIN SubLingual) 0.4 Mg Tab.subl, 1 TAB SL UD PRN for prn, #25 TAB 3 Refills 06/04/18 Acetaminophen With Codeine (TYLENOL WITH CODEINE #3 TABLET) 1 Each Tablet, 1 TAB PO PRN Q12HR PRN for PAIN, TAB 06/04/18 Losartan Potassium (LOSARTAN POTASSIUM) 100 Mg Tablet, 100 MG PO DAILY for HEART, TAB 01/21/18 Insulin Lispro (HUMALOG) 100 Unit/1 Ml Cartridge, 15 UNIT SQ TIDWMEALS, EACH 01/21/18 Docusate Sodium (DOCUSATE SODIUM) 100 Mg Capsule, 1 CAP PO DAILY, #30 CAP 01/21/18 Calcium Carbonate/Vitamin D3 (CALCIUM + VITAMIN D TABLET) 1 Each Tablet, 1 EACH PO DAILY for BONES, TAB 01/21/18 Insulin Glargine,Hum.rec.anlog (LANTUS) 100 Unit/1 Ml Vial, 35 UNIT SQ HS, VIAL 07/19/16 Discontinued Scripts Cephalexin (KEFLEX) 500 Mg Capsule, 1 CAP PO BID for uti, #14 CAP Prov:JAMES CORCORAN MD 12/04/18 JAMES CORCORAN MD Dec 27, 2018 10:09
[2018-12-27 11:00] VITALS: BP 156/65
--- NOTE | 2018-12-27 11:33 | NUR ---
SW following. [facility] will be here around 1230 to do bedside teach with pt's daughter. RN notified.
--- NOTE | 2018-12-27 11:45 | RAD ---
Exam: Fluoroscopic and ultrasound guided right percutaneous inserted central venous catheter placement 12/27/2018 11:41 AM .Indication: Long-term IV antibiotic therapy Technique: Informed oral and written consent were obtained. The right upper extremity was prepped and draped using sterile barrier technique. All elements of maximal sterile barrier technique including the use of a cap, mask, sterile gown, sterile gloves, large sterile sheet, appropriate hand hygiene, and 2% chlorhexidine for cutaneous antisepsis (or acceptable alternative antiseptic per current guidelines) were followed for this procedure.. Real-time ultrasound demonstrated a patent right basilic vein. The right upper extremity was prepped and draped in usual sterile fashion. 1% lidocaine used for local anesthesia. Using real-time ultrasound guidance the access needle percutaneously punctured the selected vein. Reference ultrasound images were saved to the medical record. A guidewire was advanced through the needle to the cavoatrial junction, and a peel-away sheath placed. The catheter was cut to length and inserted through the peel-away sheath such that its tip is at the cavoatrial junction. The wire and sheath were removed, and the catheter secured in place, and a sterile dressing was applied. Catheter was found to flush and aspirate normally. No immediate complications are identified. FLUORO TIME: 1.1 MINUTES DOSE AREA PRODUCT: 3 Gycm2 Impression: Ultrasound and fluoroscopically guided placement of a right upper extremity PICC line.
--- NOTE | 2018-12-27 15:06 | NUR ---
Discharge Note: SYD HO Discharge instructions and discharge home medications reviewed with Patient and a copy given. All questions have been answered and understanding verbalized. The following instructions and handouts were given: Discharge Instructions, Prescriptions, Education Materials Discontinued lines and drains: PIV R Forearm removed, Catheter intact. PICC line Right Arm remains at discharge Patient discharged to Home with Home Health via [facility]
[2018-12-28] MEDS ORDERED: LEVOTHYROXINE 100 MCG TABLET PO SCH (16:00)
--- NOTE | 2019-01-03 10:56 | PDOC ---
Provider Note Provider Note Discharge summary dictated. #[id number] JAMES CORCORAN MD Jan 03, 2019 10:56
--- NOTE | 2019-01-03 11:12 | DS ---
DATE OF DISCHARGE: 12/27/2018 REASON FOR ADMISSION TO THE HOSPITAL: Multiple drug resistant complicated UTI. CONSULTATIONS: None. PROCEDURES: PICC line placement. HOSPITAL COURSE: The patient is an 88-year-old female with history of chronic recurrent UTIs. The patient had seen Urology in the past, had E. coli resistant to multiple medications and the patient was admitted for IV antibiotics because there is no oral option. The patient was given meropenem 500 mg twice a day and it was sensitive to that. The patient had a PICC line placed and needed 5 more days of IV antibiotics at home. The patient also had a BUN 88, creatinine 2.0, was given fluids, it came down to 66; BUN and creatinine 1.3. The patient was discharged home for 5 more days of IV antibiotic of meropenem. FINAL DIAGNOSES: 1. Multiple drug resistant Escherichia coli. 2. Acute on chronic renal insufficiency. 3. Chronic systolic heart failure. 4. Chronic CAD 3-vessel medical management. 5. Diabetes. DISPOSITION: Home. See [facility] for discharge medications: Meropenem IV twice a day for 5 days, to finish 7 days of antibiotics for multidrug resistant UTI with Escherichia coli. JAMES CORCORAN MD DR: ADRIANA/liang JOB#: [id number] / [id number]
== END 2018-12-27 13:50 | disposition home health service (06) | DRG 689 ==
LOC: 5 NORTH 16:15
PROVIDERS: ADMIT Internal Medicine; ATTEND Internal Medicine
PROC: 02HV33Z Insertion of Infusion Device into Superior Vena Cava, Percutaneous Approach (ICD-10-PCS; principal; 2018-12-27)
PROC: B5181ZA Fluoroscopy of Superior Vena Cava using Low Osmolar Contrast, Guidance (ICD-10-PCS; 2018-12-27)
DX: N39.0 Urinary tract infection, site not specified (principal); N17.0 Acute kidney failure with tubular necrosis; I13.0 Hypertensive heart and chronic kidney disease with heart failure and stage 1 through stage 4 chronic kidney disease, or unspecified chronic kidney disease; I50.22 Chronic systolic (congestive) heart failure; N18.4 Chronic kidney disease, stage 4 (severe); B96.20 Unspecified Escherichia coli [E. coli] as the cause of diseases classified elsewhere; I25.10 Atherosclerotic heart disease of native coronary artery without angina pectoris; E78.5 Hyperlipidemia, unspecified; F41.9 Anxiety disorder, unspecified; F32.9 Major depressive disorder, single episode, unspecified; E03.9 Hypothyroidism, unspecified; Z96.642 Presence of left artificial hip joint; H54.62 Unqualified visual loss, left eye, normal vision right eye; B96.1 Klebsiella pneumoniae [K. pneumoniae] as the cause of diseases classified elsewhere; E11.51 Type 2 diabetes mellitus with diabetic peripheral angiopathy without gangrene; E11.22 Type 2 diabetes mellitus with diabetic chronic kidney disease; Z16.24 Resistance to multiple antibiotics; Z90.12 Acquired absence of left breast and nipple; Z85.3 Personal history of malignant neoplasm of breast; Z87.440 Personal history of urinary (tract) infections
CPT/HCPCS: 36415; 36569; 71045; 76937; 77001; 80048; 80053; 82962; 85025; 93005; 94640; 94760; C1751; C1892; J1650; J1815; J2185; J7030; J7040; J7620

== ENCOUNTER 2019-04-09 04:53 | Inpatient (IN) | payer OTHER ==
[~2019-04-09] VITALS: Ht 152.4 cm; Wt 67.8 kg
[~2019-04-09 04:53] MED LIST changes: -LINE600T PO; +LINE600T12 PO; +LOPE-101 PO; -LOPE2CAP88 PO; -MAGN400T3 PO; +MAGN400T5 PO; +MERO500V15 IV; +METF500T11 PO; -METF500T9 PO; -NITR0.4T SL; +NITR0.4T24 SL
[2019-04-09] MEDS ORDERED: ASPIRIN CHEWABLE 81 MG TABLET. PO ONE (05:15)
[2019-04-09 05:17] LABS: BASO # 0.1 x10^3/uL (0.0-0.2); BASO % 1 % (0-3); EOS # 0.1 x10^3/uL (0.0-0.7); EOS % 1 % (0-3); HEMATOCRIT 31.2 % (36.0-47.0); HEMOGLOBIN 10.7 g/dL (12.0-15.5); LYMPH # 1.3 x10^3/uL (1.0-4.8); LYMPH % 15 % (24-48); MEAN CORPUSCULAR HEMOGLOBIN 30 pg (25-35); MEAN CORPUSCULAR HGB CONC 34 g/dL (31-37); MEAN CORPUSCULAR VOLUME 87 fL (79-100); MONO # 0.6 x10^3/uL (0.0-1.1); MONO % 6 % (0-9); NEUT # 6.9 x10^3/uL (1.8-7.7); NEUT % 77 % (31-73); PLATELET COUNT 165 x10^3/uL (140-400); RED BLOOD COUNT 3.59 x10^6/uL (3.50-5.40); RED CELL DISTRIBUTION WIDTH 13.5 % (11.5-14.5)
[2019-04-09 05:29] LABS: CALCIUM 8.6 mg/dL (8.5-10.1); CREATININE 2.1 mg/dL (0.6-1.0); GFR 22.3; POTASSIUM 4.2 mmol/L (3.5-5.1)
[2019-04-09] MEDS ORDERED: fentaNYL PF VIAL 100 MCG/2 ML VIAL IV ONE (05:30)
[2019-04-09] MEDS ORDERED: NITROGLYCERIN OINT 1 GM PACKET. TP ONE (05:30)
[2019-04-09] MEDS ORDERED: fentaNYL PF VIAL 100 MCG/2 ML VIAL IV PRN (05:30)
[2019-04-09] MEDS ORDERED: ONDANSETRON PF 4 MG/2 ML VIAL. IV PRN (05:30)
[2019-04-09] MEDS ORDERED: ACETAMINOPHEN 325 MG TABLET. PO PRN (05:30)
[2019-04-09 05:35] LABS: TOTAL BILIRUBIN 0.3 mg/dL (0.2-1.0); TOTAL PROTEIN 6.6 g/dL (6.4-8.2)
--- NOTE | 2019-04-09 05:35 | PHYS DOC ---
Past Medical History Past Medical History: Anemia, Cancer, CHF, Diabetes-Type II, GERD, High Cholesterol, Hypertension, Hypothyroid, TN, Other Additional Past Medical Histor: L. BREAST CA,CHRONIC PAIN, L EYE BLIND Past Surgical History: Cholecystectomy, Other Additional Past Surgical Histo: L. MASTECTOMY,LEG SURG; L HIPbypass bilat LE,cardiac cath/no stents Alcohol Use: None Drug Use: None Adult General Chief Complaint Chief Complaint: CHEST PAIN HPI HPI 88-year-old female with a history of what sounds like nonischemic cardiomyopathy presents with approximately 6 hour history of chest pain. Family states that the patient woke her up at approximately 11:30 yesterday evening with substernal chest discomfort and some shortness of breath. She denied any nausea or vomiti ng. She has not been sweating. She has had this type of pain in the past. She has had a cardiac catheter in the past without any stenting. She did have nitroglycerin prior to arrival [place] reduced her pain from a 10 to a 6. She currently states the pain is relatively severe.[] Review of Systems Review of Systems Constitutional: Denies fever or chills [] Eyes: Denies change in visual acuity, redness, or eye pain [] HENT: Denies nasal congestion or sore throat [] Respiratory: Reports some shortness of breath[] Cardiovascular: No additional information not addressed in HPI [] GI: Denies abdominal pain, nausea, vomiting, bloody stools or diarrhea [] : Denies dysuria or hematuria [] Musculoskeletal: Denies back pain or joint pain [] Integument: Denies rash or skin lesions [] Neurologic: Denies headache, focal weakness or sensory changes [] Endocrine: Denies polyuria or polydipsia [] All other systems were reviewed and found to be within normal limits, except as documented in this note. Current Medications Current Medications Current Medications Medications (Trade) Dose Ordered Sig/Kyle Start Time Stop Time Status Last Admin Dose Admin Acetaminophen (Tylenol) 650 mg PRN Q4HRS PRN 04/09/19 05:30 04/10/19 05:29 UNV Aspirin (Children'S Aspirin) 324 mg 1X ONCE 04/09/19 05:15 04/09/19 05:16 UNV Fentanyl Citrate (Fentanyl 2ml Vial) 50 mcg PRN Q1HR PRN 04/09/19 05:30 04/10/19 05:29 UNV Nitroglycerin (Nitro-Bid Oint) 1 inch 1X ONCE 04/09/19 05:30 04/09/19 05:31 UNV Ondansetron HCl (Zofran) 4 mg PRN Q8HRS PRN 04/09/19 05:30 04/10/19 05:29 UNV Sodium Chloride 500 ml @ 500 mls/hr 1X ONCE 04/09/19 05:45 04/09/19 06:44 UNV Allergies Allergies Allergies Coded Allergies Type Severity Reaction Last Updated Verified No Known Medication Allergies Allergy Unknown 08/01/18 Yes Physical Exam Physical Exam Constitutional: Frail, elderly mild distress. [] HENT: Normocephalic, atraumatic, bilateral external ears normal, oropharynx moist, no oral exudates, nose normal. [] Eyes: PERRLA, EOMI, conjunctiva normal, no discharge. [] Neck: Normal range of motion, no tenderness, supple, no stridor. [] Cardiovascular:Heart rate regular rhythm, no murmur [] Lungs & Thorax: Bilateral breath sounds clear to auscultation [] Abdomen: Bowel sounds normal, soft, no tenderness, no masses, no pulsatile masses. [] Skin: Warm, dry, no erythema, no rash. [] Back: No tenderness, no CVA tenderness. [] Extremities: No tenderness, no cyanosis, no clubbing, ROM intact, no edema. [] Neurologic: Alert and oriented X 3, normal motor function, normal sensory function, no focal deficits noted. [] Psychologic: Depressed affect. [] Current Patient Data Vital Signs Vital Signs Date Time Temp Pulse Resp B/P (MAP) Pulse Ox O2 Delivery O2 Flow Rate FiO2 04/09/19 04:55 98.1 85 17 172/82 (112) 92 Nasal Cannula 98.1 Lab Values Laboratory Tests Test 04/09/19 05:10 White Blood Count 9.0 x10^3/uL (4.0-11.0) Red Blood Count 3.59 x10^6/uL (3.50-5.40) Hemoglobin 10.7 g/dL (12.0-15.5) L Hematocrit 31.2 % (36.0-47.0) L Mean Corpuscular Volume 87 fL (79-100) Mean Corpuscular Hemoglobin 30 pg (25-35) Mean Corpuscular Hemoglobin Concent 34 g/dL (31-37) Red Cell Distribution Width 13.5 % (11.5-14.5) Platelet Count 165 x10^3/uL (140-400) Neutrophils (%) (Auto) 77 % (31-73) H Lymphocytes (%) (Auto) 15 % (24-48) L Monocytes (%) (Auto) 6 % (0-9) Eosinophils (%) (Auto) 1 % (0-3) Basophils (%) (Auto) 1 % (0-3) Neutrophils # (Auto) 6.9 x10^3/uL (1.8-7.7) Lymphocytes # (Auto) 1.3 x10^3/uL (1.0-4.8) Monocytes # (Auto) 0.6 x10^3/uL (0.0-1.1) Eosinophils # (Auto) 0.1 x10^3/uL (0.0-0.7) Basophils # (Auto) 0.1 x10^3/uL (0.0-0.2) Sodium Level 146 mmol/L (136-145) H Potassium Level 4.2 mmol/L (3.5-5.1) Chloride Level 110 mmol/L (98-107) H Carbon Dioxide Level 25 mmol/L (21-32) Anion Gap 11 (6-14) Blood Urea Nitrogen 73 mg/dL (7-20) H Creatinine 2.1 mg/dL (0.6-1.0) H Estimated GFR (Cockcroft-Gault) 22.3 BUN/Creatinine Ratio 35 (6-20) H Glucose Level 242 mg/dL (70-99) H Calcium Level 8.6 mg/dL (8.5-10.1) Total Bilirubin 0.3 mg/dL (0.2-1.0) Aspartate Amino Transferase (AST) 76 U/L (15-37) H Alanine Aminotransferase (ALT) 28 U/L (14-59) Alkaline Phosphatase 130 U/L (46-116) H Troponin I Quantitative 21.346 ng/mL (0.000-0.055) Total Protein 6.6 g/dL (6.4-8.2) Albumin 3.5 g/dL (3.4-5.0) Albumin/Globulin Ratio 1.1 (1.0-1.7) Laboratory Tests 04/09/19 05:10 Laboratory Tests 04/09/19 05:10 EKG EKG [] Interpretation Time: EKG: Normal sinus rhythm rate of 80 with significant anterior lateral ST depression this does not appear significantly different than an EKG done in December of this year Radiology/Procedures Radiology/Procedures [] Impressions: Chest x-ray: Appears to be mild to moderate vascular congestion consistent with congestive heart failure Course & Med Decision Making Course & Med Decision Making Pertinent Labs and Imaging studies reviewed. (See chart for details) [ED course: Evaluation reveals an 88-year-old female presents with chest pain. Her chest x-ray appears to have some mild congestive heart failure. Her troponin came back markedly elevated. She was started on Nitrol paste and was given when necessary fit no for pain. She was very comfortable in the emergency department. She was also started on a heparin drip per cardiac protocol. I spoke with Dr. Stevens and we'll admit her to the hospital and have has nor a follow along.] CRITICAL CARE: Time spent was 35 minutes. This includes medical management, evaluation, reevaluation, discussion with consultants and family. Critical Care does NOT include time spent on separately billed procedures. Dragon Disclaimer Dragon Disclaimer This electronic medical record was generated, in whole or in part, using a voice recognition dictation system. Departure Departure Impression: Primary Impression: NSTEMI (non-ST elevated myocardial infarction) Additional Impression: Acute on chronic renal failure Disposition: ADMITTED INPATIENT Admitting Physician: James Corcoran Condition: GUARDED Referrals: JAMES CORCORAN MD (PCP) Problem Qualifiers Additional Impression: Acute on chronic renal failure Acute renal failure type: unspecified Chronic kidney disease stage: unspecified stage Qualified Codes: N17.9 - Acute kidney failure, unspecified; N18.9 - Chronic kidney disease, unspecified AUSTIN ARZATE DO Apr 09, 2019 05:35
[2019-04-09 05:42] LABS: ALBUMIN 3.5 g/dL (3.4-5.0); ALBUMIN/GLOBULIN RATIO 1.1 (1.0-1.7)
[2019-04-09] MEDS ORDERED: IV NORMAL SALINE 500ML BAG 500 ML IV ONE (05:45)
--- NOTE | 2019-04-09 05:56 | EKG ---
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
[2019-04-09] MEDS ORDERED: HEPARIN for IV BOLUS 10,000 UNIT/10 ML VIAL. IV PRN (06:00)
[2019-04-09] MEDS ORDERED: HEPARIN for IV BOLUS 10,000 UNIT/10 ML VIAL. IV ONE (06:00)
[2019-04-09] MEDS: HEPARIN 25,000UTS/500ML PREMIX 500 ML IV PRN (06:12)
[2019-04-09 06:55] VITALS: BP 172/98
--- NOTE | 2019-04-09 07:42 | RAD ---
AP portable chest radiograph 04/09/2019 Clinical History: Chest pain. An AP erect portable digital radiograph of the chest was obtained. Comparison study is dated 12/25/2018. The cardiac silhouette is mildly enlarged. The thoracic aorta is tortuous. Atherosclerotic calcification of the thoracic aorta is seen. There are small bilateral pleural effusions which are new since the previous examination. Bilateral perihilar infiltrates are seen consistent with pulmonary edema from CHF. No pneumothorax is noted. The osseous structures are unchanged. Impression: Bilateral perihilar infiltrates are seen consistent with pulmonary edema from CHF. Electronically signed by: Anand Contreras MD (04/09/2019 7:39 AM) [facility]
[2019-04-09] MEDS ORDERED: FUROSEMIDE 40 MG/4 ML VIAL. IVP ONE (10:00)
[2019-04-09] MEDS ORDERED: CLOPIDOGREL BISULFATE 75 MG TABLET PO ONE (10:00)
--- NOTE | 2019-04-09 10:03 | PDOC2 ---
KAYLA WAITE SUGAR CANE GROWER 04/09/19 1003: CARDIAC CONSULT DATE OF CONSULT Date of Consult DATE: 04/09/19 TIME: 09:37 REASON FOR CONSULT Reason for Consult: Chest pain REFERRING PHYSICIAN Referring Physician: German SOURCE Source: Caregiver (daughter), Chart review, Patient HISTORY OF PRESENT ILLNESS HISTORY OF PRESENT ILLNESS This is an 88 yo female admitted for chest pain. She has been having chest pressure and shortness of breast since yesterday. No nausea or vomiting. She has CKD and known CAD and has refused multiple times as far as any cardiac intervention knowing the consequences. She has orthopnea and currently sitting up and in no distress but notable for acute CHF. No frequent dizziness, palpitations or any recent falls or injury. No fever or chills. She has been offered PCI multiple times in the past but refused. PAST MEDICAL HISTORY Past Medical History Cardiovascular: CAD, CHF, HTN, Hyperlipidemia, Other ((3 vessel - considered not a surgical candidate; family declined Impella assisted PCI), CHF (chronic systolic), HTN, MT (NSTEMI - 08/2016), Hyperlipidemia, Other (PAD with previous bilateral LE bypass)) Pulmonary: No pertinent hx CENTRAL NERVOUS SYSTEM: Other (traumatic SAH) GI: Other (C-diff) Heme/Onc: Anemia NOS, Cancer (breast) Psych: Anxiety, Depression Musculoskeletal: Osteoarthritis Rheumatologic: No pertinent hx Infectious disease: Other (C-DIff) ENT: Other (glaucoma) Renal/: UTI, CKD Endocrine: Diabetes PAST SURGICAL HISTORY Past Surgical History Mastectomy (left), Total hip replacement (left - after mechanical fall), Other (bilateral LE bypass graft; toe amputations bilaterally) Total hip replacement (left hemiarthroplasty) FAMILY HISTORY Family History noncontributory SOCIAL HISTORY Smoke: No ALCOHOL: none Drugs: None Lives: with Family CURRENT MEDICATIONS CURRENT MEDICATIONS Current Medications Medications (Trade) Dose Ordered Sig/Kyle Route PRN Reason Start Time Stop Time Status Last Admin Dose Admin Aspirin (Children'S Aspirin) 324 mg 1X ONCE PO 04/09/19 05:15 04/09/19 05:50 DC 04/09/19 05:47 Fentanyl Citrate (Fentanyl 2ml Vial) 50 mcg 1X ONCE IV 04/09/19 05:30 04/09/19 05:50 DC 04/09/19 05:47 Nitroglycerin (Nitro-Bid Oint) 1 inch 1X ONCE TP 04/09/19 05:30 04/09/19 05:51 DC 04/09/19 05:47 Heparin Sodium/ Dextrose 500 ml @ 0 mls/hr CONT PRN IV PER PROTOCOL 04/09/19 06:00 04/09/19 06:12 Heparin Sodium (Porcine) (Heparin Sodium) 3,900 unit 1X ONCE IV 04/09/19 06:00 04/09/19 06:01 DC 04/09/19 06:11 ALLERGIES ALLERGIES: Coded Allergies: No Known Medication Allergies (Verified Allergy, Unknown, 08/01/18) ROS Review of System Limited due to language barrier, details discussed with daughter whom she lives with and takes care of her PHYSICAL EXAM General: Alert, Oriented X3, Cooperative, No acute distress HEENT: Mucous membr. moist/pink Lungs: Other (basilar crackles) Abdomen: Soft, No tenderness Extremities: No cyanosis, Other (1+ bilateral LE pitting edema) Skin: No breakdown, No significant lesion Neuro: Normal speech, Sensation intact Psych/Mental Status: Mental status NL, Mood NL MUSCULOSKELETAL: Osteoarthritic changes both hands VITALS/I&O VITALS/I&O: Vital Signs Date Time Temp Pulse Resp B/P (MAP) Pulse Ox O2 Delivery O2 Flow Rate FiO2 04/09/19 06:55 98.3 85 24 172/98 (122) 94 Nasal Cannula 2.0 98.3 LABS Lab: Laboratory Tests Test 04/09/19 05:10 04/09/19 08:17 04/09/19 08:40 White Blood Count 9.0 x10^3/uL (4.0-11.0) Red Blood Count 3.59 x10^6/uL (3.50-5.40) Hemoglobin 10.7 g/dL (12.0-15.5) L Hematocrit 31.2 % (36.0-47.0) L Mean Corpuscular Volume 87 fL (79-100) Mean Corpuscular Hemoglobin 30 pg (25-35) Mean Corpuscular Hemoglobin Concent 34 g/dL (31-37) Red Cell Distribution Width 13.5 % (11.5-14.5) Platelet Count 165 x10^3/uL (140-400) Neutrophils (%) (Auto) 77 % (31-73) H Lymphocytes (%) (Auto) 15 % (24-48) L Monocytes (%) (Auto) 6 % (0-9) Eosinophils (%) (Auto) 1 % (0-3) Basophils (%) (Auto) 1 % (0-3) Neutrophils # (Auto) 6.9 x10^3/uL (1.8-7.7) Lymphocytes # (Auto) 1.3 x10^3/uL (1.0-4.8) Monocytes # (Auto) 0.6 x10^3/uL (0.0-1.1) Eosinophils # (Auto) 0.1 x10^3/uL (0.0-0.7) Basophils # (Auto) 0.1 x10^3/uL (0.0-0.2) Sodium Level 146 mmol/L (136-145) H Potassium Level 4.2 mmol/L (3.5-5.1) Chloride Level 110 mmol/L (98-107) H Carbon Dioxide Level 25 mmol/L (21-32) Anion Gap 11 (6-14) Blood Urea Nitrogen 73 mg/dL (7-20) H Creatinine 2.1 mg/dL (0.6-1.0) H Estimated GFR (Cockcroft-Gault) 22.3 BUN/Creatinine Ratio 35 (6-20) H Glucose Level 242 mg/dL (70-99) H Calcium Level 8.6 mg/dL (8.5-10.1) Total Bilirubin 0.3 mg/dL (0.2-1.0) Aspartate Amino Transferase (AST) 76 U/L (15-37) H Alanine Aminotransferase (ALT) 28 U/L (14-59) Alkaline Phosphatase 130 U/L (46-116) H Troponin I Quantitative 21.346 ng/mL (0.000-0.055) 29.935 ng/mL (0.000-0.055) KY-Khn-K-Type Natriuretic Peptide > 43348 pg/mL (0-449) H Total Protein 6.6 g/dL (6.4-8.2) Albumin 3.5 g/dL (3.4-5.0) Albumin/Globulin Ratio 1.1 (1.0-1.7) Glucose (Fingerstick) 199 mg/dL (70-99) H Laboratory Tests 04/09/19 05:10 Laboratory Tests 04/09/19 05:10 ECHOCARDIOGRAM ECHOCARDIOGRAM <Conclusion> Left ventricle systolic function is mildly impaired. The Ejection Fraction is 45-50%. Septal motion consistent with conduction abnormality. Doppler and Color Flow revealed trace tricuspid regurgitation. There is moderate pulmonary hypertension. The PA pressure was estimated at 42 mmHg. DATE: 11/30/18 1536 HEART CATH HEART CATH Conclusion 1. Severe three-vessel coronary artery disease 2. Mild global left ventricular systolic dysfunction with ejection fraction estimated at 40-45% Recommendations Cardiothoracic surgery team referral for possible coronary artery bypass surgery. If patient is deemed a poor surgical candidate, we will consider high risk PCI with hemodynamic support from Impella percutaneous ventricular assist device. DATE: 08/08/16 1507 ASSESSMENT/PLAN ASSESSMENT/PLAN 1. NSTEMI 2. Acute on chronic systolic CHF 3. Accelerated HTN 4. HLP 5. DM2 6. IGOR on CKD: Cr at 2.1, uremic 7. Known CAD/3VD and ICM Recommendations 1. Discussed multiple times in the past in regards to PCI, risks including potential HD and beneftis and has declined intervention and wants to continue medical therapy per pt and daughter. Will optimize 2. Norvasc x1. Lasix therapy. ASA and plavix. Continue heparin drip 3. Will review home meds then resume as tolerated. 4. Hold ACEi/ARB at this time. 5. TTE and lipids. GERI ANGULO MD 04/09/19 1600: CARDIAC CONSULT ASSESSMENT/PLAN ASSESSMENT/PLAN Patient seen and examined. Agree with MICROSTRATEGY ARCHITECT DEVELOPER's assessment and plan. Patient with known three-vessel coronary artery disease on conservative management based on her wishes, has been admitted with non-STEMI Continue heparin infusion per protocol Continue gentle diuresis for acute on chronic systolic heart failure with close monitoring of BUN/creatinine Check 2-D echo to assess LV systolic function Options discussed again with patient and family - consensus to pursue conservative management Thank you for your consultation KAYLA WAITE APRN Apr 09, 2019 10:03 GERI ANGULO MD Apr 09, 2019 16:00
[2019-04-09] MEDS: ANTI-COAG MONITOR BY PHARMACY. MC PRN (10:17)
--- NOTE | 2019-04-09 10:29 | PDOC ---
Provider Note Provider Note Pt seen.H&P #[id number]. dictated. Pt do not want cardiac intervention. medical treatment for non STEMI JAMES CORCORAN MD Apr 09, 2019 10:29
[2019-04-09] MEDS ORDERED: amLODIPine BESYLATE 5 MG TABLET PO ONE (10:30)
[2019-04-09] MEDS ORDERED: LEVO50TA5 PO (10:52)
[2019-04-09 11:00] VITALS: BP 183/85
[2019-04-09] MEDS: DOCUSATE SODIUM 100 MG CAPSULE. PO SCH (11:00)
[2019-04-09] MEDS ORDERED: DEXTROSE 50% 25 GM / 50ML DISP.SYRIN. IV PRN (11:45)
[2019-04-09] MEDS: INSULIN LISPRO 300 UNITS/3 ML VIAL. SQ SCH ×4 (12:00→17:42)
--- NOTE | 2019-04-09 12:44 | HP ---
ADMIT DATE: 04/09/2019 MEDICAL HISTORY AND PHYSICAL PATIENT LOCATION: 207. REASON FOR ADMISSION TO THE HOSPITAL: Cardiac ischemia, myocardial infarction. HISTORY OF PRESENT ILLNESS: The patient is an 88-year-old female. The patient has a known coronary artery disease, 3-vessel disease, not a candidate for bypass, and she refused other interventions. The plan was to do medical management. She was having pain for 6 hours prior to admission to the ER, and she had an EKG and a troponin went up to 29 troponin, EKG negative for ST elevation. The patient was admitted to the hospital, was put on heparin as well as nitroglycerin drip. PAST MEDICAL HISTORY: The patient has a known coronary artery disease, had a cardiac catheterization last year, shows a 3-vessel disease, and did not want any intervention at that time and not a candidate for bypass; and she also has chronic kidney disease, stage 3 to stage 4; diabetes, insulin-dependent; hypertension; hyperlipidemia; recurrent UTIs; congestive heart failure, chronic, systolic. PAST SURGICAL HISTORY: She had a breast cancer, a left mastectomy, cardiac catheterization, also had a hip surgery. ALLERGIES: No known allergies. MEDICATIONS AT HOME: The patient is on levothyroxine 50 mcg daily, nitroglycerin sublingual, Tylenol with Codeine q.12h., atorvastatin 20 mg daily, Bumex 0.5 twice a day, calcium with vitamin D 2 a day, Coreg 12.5 twice a day, Plavix 75 mg daily, Voltaren gel daily, Colace 100 mg daily, Pepcid 40 mg daily, iron 325 daily, insulin Lantus 30 at bedtime, Humalog 15 units 3 times daily, DuoNeb 4 times daily, isosorbide 30 mg daily, levothyroxine 100 mcg daily, losartan 100 mg daily, Lyrica 50 mg twice a day and sublingual nitroglycerin. PERSONAL HISTORY: No history of smoking, alcohol, drug abuse. FAMILY HISTORY: Positive for diabetes, heart disease. REVIEW OF SYMPTOMS: Complains of shortness of breath and chest pain; chest pain-free now, feels better; and rest of the 14 systems were reviewed and negative. PHYSICAL EXAMINATION: GENERAL: The patient is sitting in chair, not in any distress. VITAL SIGNS: Temperature 98, pulse 85, respirations 17, blood pressure 172/82 and 92 on 2 liters. HEENT: Head is atraumatic. Pupils equal. Oral cavity, no congestion. CHEST: Had a left mastectomy. CARDIOVASCULAR: S1, S2. LUNGS: Few crackles at the bases. ABDOMEN: Soft. No mass palpable. EXTERNAL GENITALIA: No Sipmson. RECTAL: Deferred. EXTREMITIES: Had trace edema. NEUROLOGICAL: Moving all extremities. No focal deficits noted. LABORATORY DATA: Shows a white count of 9, hemoglobin 10.7, platelets 165. Electrolytes show sodium 146, potassium 4.2, chloride 110, bicarbonate 25, BUN 73, creatinine 2.1, glucose 242. AST normal. Troponin 21. BNP 35,000. TSH 11. Cholesterol 132, LDL 72. Chest x-ray, CHF. EKG, no acute ischemic changes, no ST elevation. FINAL IMPRESSION: 1. Non-ST elevation myocardial infarction. 2. Congestive heart failure, [id number], systolic. 3. Known 3-vessel disease, coronary artery disease. 4. Hypertension. 5. Hyperlipidemia. 6. 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 7. Insulin-dependent diabetes. 8. Recurrent urinary tract infections. 9. Hypothyroidism. PLAN: At this time was to admit to hospital. The patient refused cardiac intervention at this time. Continue medical treatment with nitroglycerin and heparin. Monitor kidney function. Also check for urinary tract infection, she gets frequent UTIs. JAMES CORCORAN MD DR: ADRIANA/liang JOB#: [id number] / [id number]
--- NOTE | 2019-04-09 13:51 | NUR ---
SS following for discharge planning. SS reviewed pt chart. Pt is from home and is currently requiring oxygen. Pt was previously on services with [facility], ; fax [phone]. PT/OT ordered. SS will continue to follow for discharge planning.
[2019-04-09] MEDS: LOSARTAN POTASSIUM 50 MG TABLET. PO SCH (13:53)
[2019-04-09] MEDS: ISOSORBIDE MONONITRATE ER 30 MG TAB.ER.24H PO SCH (13:53)
[2019-04-09] MEDS: PREGABALIN 50 MG CAPSULE PO SCH ×2 (13:53→21:39)
[2019-04-09] MEDS: CARVEDILOL 12.5 MG TABLET. PO SCH ×2 (13:53→17:37)
[2019-04-09] MEDS: CALCIUM CARB/VIT D3 500/200 TABLET. PO SCH (13:53)
[2019-04-09] MEDS: DICLOFENAC SODIUM 1% TOPICAL GEL 100GM TUBE. TP SCH ×3 (13:54→21:39)
[2019-04-09] MEDS: FERROUS SULFATE 325 MG TABLET. PO SCH (13:54)
[2019-04-09] MEDS: LEVOTHYROXINE 50 MCG TABLET PO SCH (13:54)
[2019-04-09 14:56] LABS: BILIRUBIN,URINE NEGATIVE (NEG); CLARITY,URINE CLEAR; COLOR,URINE YELLOW; NITRITE,URINE NEGATIVE (NEG); PROTEIN,URINE >=300 mg/dL (NEG-TRACE); UROBILINOGEN,URINE 0.2 mg/dL (0.2 mg/dL)
[2019-04-09 15:00] VITALS: BP 176/84
[2019-04-09 15:05] LABS: BACTERIA,URINE MANY /HPF (0-FEW)
[2019-04-09] MEDS: IPRATRPIUM/ALBUTEROL 0.5/2.5MG 3 ML NEBU. NEB SCH ×2 (16:14→20:47)
--- NOTE | 2019-04-09 16:44 | CARD ---
MR#: [id number] Date of Study: 04/09/2019 Ordering Physician: KAYLA WAITE, Referring Physician: KAYLA WAITE, Tech: Soledad Capone RDCS APPROVED REPORT EXAM: Two-dimensional and M-mode echocardiogram with Doppler and color Doppler. Other Information Quality : AverageHR: 72bpm Rhythm : NSR INDICATION Non STEMI 2D DIMENSIONS RVDd3.1 (2.9-3.5cm)Left Atrium(2D)4.1 (1.6-4.0cm) IVSd1.4 (0.7-1.1cm)Aortic Root(2D)3.0 (2.0-3.7cm) LVDd4.2 (3.9-5.9cm)LVOT Diameter1.8 (1.8-2.4cm) PWd1.1 (0.7-1.1cm)LVDs3.6 (2.5-4.0cm) FS (%) 14.7 %SV24.9 ml LVEF(%)31.5 (>50%) M-Mode DIMENSIONS Left Atrium(MM)4.17 (2.5-4.0cm)Aortic Root3.32 (2.2-3.7cm) Aortic Valve AoV Peak Jacobo.168.0cm/sAoV VTI35.8cm AO Peak GR.11.3mmHgLVOT Peak Jacobo.81.8cm/s AO Mean GR.6mmHgAVA (VMAX)1.27cm2 MARITZA (VTI)1.50cm2 Mitral Valve MV E Wgummwoo038.5cm/sMV E Peak Gr.8mmHg MV DECEL [id number] A Hrnjywme059.6cm/s MV E Mean Gr.4mmHgE/A Ratio0.9 Tricuspid Valve TR P. Doqagovb080ue/sRAP PWXBOFAP4mnHa TR Peak Gr.90bhKuRVWK28jyQl LEFT VENTRICLE The left ventricle is normal size. There is mild concentric left ventricular hypertrophy. The ejectio n fraction is severely impaired. The Ejection Fraction is 30-35%. There is global hypokinesis of the left ventricle with severe hypokinesis of the septum and anterior wall Transmitral Doppler flow patte rn is Grade I-abnormal relaxation pattern. RIGHT VENTRICLE The right ventricle is mildly to moderately dilated. There is normal right ventricular wall thickness . The right ventricular systolic function is normal. ATRIA The left atrium is mildly dilated. The right atrium size is normal. The interatrial septum is intact with no evidence for an atrial septal defect or patent foramen ovale as noted on 2-D or Doppler imagi ng. AORTIC VALVE The aortic valve is mildly calcified. The aortic valve is trileaflet. Doppler and Color Flow revealed no significant aortic regurgitation. There is no significant aortic valvular stenosis. There is no a ortic valvular vegetation. MITRAL VALVE Mitral annular calcification is moderate. There is no evidence of mitral valve prolapse. There is no mitral valve stenosis. Doppler and Color-flow revealed mild to moderate mitral regurgitation. TRICUSPID VALVE The tricuspid valve is normal in structure and function. Doppler and Color Flow revealed mild tricusp id regurgitation. There is moderate pulmonary hypertension. The PA pressure was estimated at 59 mmHg. There is no tricuspid valve prolapse or vegetation. There is no tricuspid valve stenosis. PULMONIC VALVE The pulmonic valve is not well visualized. GREAT VESSELS The aortic root is normal in size. The ascending aorta is normal in size. The IVC is dilated and jax apses >50% with inspiration. PERICARDIAL EFFUSION There is no evidence of significant pericardial effusion. Critical Notification Critical Value: No <Conclusion> The ejection fraction is severely impaired. The Ejection Fraction is 30-35%. There is global hypokinesis of the left ventricle with severe hypokinesis of the septum and anterior wall Doppler and Color Flow revealed mild tricuspid regurgitation. There is moderate pulmonary hypertensio n. The PA pressure was estimated at 59 mmHg. Doppler and Color-flow revealed mild to moderate mitral regurgitation. Signed by : Manuel Ellis, Electronically Approved : 04/09/2019 16:44:17
[2019-04-09 19:51] VITALS: BP 127/61
[2019-04-09] MEDS ORDERED: BUMETANIDE 0.5 MG PO SCH (21:00)
[2019-04-09] MEDS ORDERED: MEROPENEM 500 MG VIAL IV SCH (21:00)
[2019-04-09] MEDS ORDERED: FAMOTIDINE 20 MG TABLET. PO PRN (21:00)
[2019-04-09] MEDS: ATORVASTATIN CALCIUM 20 MG TABLET PO SCH (21:39)
[2019-04-09] MEDS: INSULIN GLARGINE SYRINGE. SQ SCH (21:42)
--- NOTE | 2019-04-09 21:45 | NUR ---
Patients daughter would only allow patient to be given 7 units of Lantus tonight. States that is all they give her at home or her blood sugar will be 40s in the morning. Will continue to monitor.
[2019-04-09 23:00] VITALS: BP 138/66
[2019-04-10 03:15] VITALS: BP 134/61
[2019-04-10 05:10] LABS: HEMOGLOBIN A1C 7.8 % (4.8-5.6)
[2019-04-10 05:54] LABS: BASO % 1 % (0-3); EOS # 0.1 x10^3/uL (0.0-0.7); EOS % 2 % (0-3); HEMATOCRIT 24.9 % (36.0-47.0); HEMOGLOBIN 8.5 g/dL (12.0-15.5); LYMPH # 1.6 x10^3/uL (1.0-4.8); LYMPH % 26 % (24-48); MEAN CORPUSCULAR HEMOGLOBIN 30 pg (25-35); MEAN CORPUSCULAR HGB CONC 34 g/dL (31-37); MEAN CORPUSCULAR VOLUME 87 fL (79-100); MONO # 0.5 x10^3/uL (0.0-1.1); MONO % 8 % (0-9); NEUT % 64 % (31-73); PLATELET COUNT 131 x10^3/uL (140-400); RED BLOOD COUNT 2.87 x10^6/uL (3.50-5.40); RED CELL DISTRIBUTION WIDTH 13.6 % (11.5-14.5); WHITE BLOOD COUNT 6.2 x10^3/uL (4.0-11.0)
[2019-04-10 06:01] LABS: CALCIUM 8.3 mg/dL (8.5-10.1); CREATININE 2.3 mg/dL (0.6-1.0); GFR 20.1; POTASSIUM 3.5 mmol/L (3.5-5.1)
[2019-04-10] MEDS: LEVOTHYROXINE 50 MCG TABLET PO SCH (06:48)
[2019-04-10 07:27] VITALS: BP 131/61
[2019-04-10] MEDS: INSULIN LISPRO 300 UNITS/3 ML VIAL. SQ SCH ×6 (08:00→17:00)
[2019-04-10] MEDS: IPRATRPIUM/ALBUTEROL 0.5/2.5MG 3 ML NEBU. NEB SCH ×3 (08:10→19:58)
[2019-04-10] MEDS: DICLOFENAC SODIUM 1% TOPICAL GEL 100GM TUBE. TP SCH ×4 (09:00→21:00)
[2019-04-10] MEDS ORDERED: CLOPIDOGREL BISULFATE 75 MG TABLET PO SCH (09:00)
[2019-04-10] MEDS ORDERED: FLU VAX QS 2019-20 (36MOS+)/PF 0.5 ML SYRINGE. VAX IM ONE (09:15)
--- NOTE | 2019-04-10 10:30 | PDOC ---
PROGRESS NOTES Subjective Subjective sob Objective Objective Vital Signs Date Time Temp Pulse Resp B/P (MAP) Pulse Ox O2 Delivery O2 Flow Rate FiO2 04/10/19 08:10 80 Nasal Cannula 2.0 04/10/19 07:27 98.0 74 18 131/61 (84) 98.0 Intake and Output 04/10/19 07:00 Intake Total 660 ml Output Total 630 ml Balance 30 ml Intake Oral 340 ml IV Total 320 ml Output Urine Total 630 ml # Voids 5 Physical Exam Abdomen: Soft, No tenderness Extremities: No cyanosis, Other (1+ bilateral LE pitting edema) General: Alert, Oriented X3, Cooperative, No acute distress HEENT: Mucous membr. moist/pink Lungs: Other (basilar crackles) MUSCULOSKELETAL: Osteoarthritic changes both hands Neuro: Normal speech, Sensation intact Psych/Mental Status: Mental status NL, Mood NL Skin: No breakdown, No significant lesion Diagnosis Problem List Problems Medical Problems: (1) NSTEMI (non-ST elevated myocardial infarction) Status: Acute Assessment Assessment Problems Medical Problems: (1) NSTEMI (non-ST elevated myocardial infarction) Status: Acute FINAL IMPRESSION: 1. Non-ST elevation myocardial infarction. 2. Congestive heart failure, [id number], systolic. 3. Known 3-vessel disease, coronary artery disease. 4. Hypertension. 5. Hyperlipidemia. 6. 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 7. Insulin-dependent diabetes. 8. Recurrent urinary tract infections. 9. Hypothyroidism. PLAN: cr 2.3 worse, troponin trending up 39 today pt and family want to proceed with cath and angioplasty. spoke with cardiology.Procedure planned for tomorrow. cxr jacki pleural effusion. iv lasix for now. At this time was to admit to hospital. The patient refused cardiac intervention at this time. Continue medical treatment with nitroglycerin and heparin. Monitor kidney function. Also check for urinary tract infection, she gets frequent UTIs. Plan Plan of Care Problems Medical Problems: (1) NSTEMI (non-ST elevated myocardial infarction) Status: Acute Comment Review of Relevant I have reviewed the following items kathleen (where applicable) has been applied. Labs Laboratory Tests Test 04/09/19 11:32 04/09/19 11:45 04/09/19 14:30 04/09/19 17:00 Glucose (Fingerstick) 205 mg/dL (70-99) 193 mg/dL (70-99) Heparin Anti-Xa Act, Unfractionated 0.66 IU/mL (0.30-0.70) Troponin I Quantitative 36.776 ng/mL (0.000-0.055) Urine Collection Type Unknown Urine Color Yellow Urine Clarity Clear Urine pH 7.0 Urine Specific [place] 1.010 Urine Protein >=300 mg/dL (NEG-TRACE) Urine Glucose (UA) Negative mg/dL (NEG) Urine Ketones (Stick) Negative mg/dL (NEG) Urine Blood Small (NEG) Urine Nitrite Negative (NEG) Urine Bilirubin Negative (NEG) Urine Urobilinogen Dipstick 0.2 mg/dL (0.2 mg/dL) Urine Leukocyte Esterase Small (NEG) Urine RBC 1-2 /HPF (0-2) Urine WBC 11-20 /HPF (0-4) Urine Bacteria Many /HPF (0-FEW) Test 04/09/19 17:55 04/09/19 21:00 04/09/19 22:55 04/10/19 05:45 Heparin Anti-Xa Act, Unfractionated 0.26 IU/mL (0.30-0.70) 0.33 IU/mL (0.30-0.70) 0.34 IU/mL (0.30-0.70) Glucose (Fingerstick) 157 mg/dL (70-99) White Blood Count 6.2 x10^3/uL (4.0-11.0) Red Blood Count 2.87 x10^6/uL (3.50-5.40) Hemoglobin 8.5 g/dL (12.0-15.5) Hematocrit 24.9 % (36.0-47.0) Mean Corpuscular Volume 87 fL (79-100) Mean Corpuscular Hemoglobin 30 pg (25-35) Mean Corpuscular Hemoglobin Concent 34 g/dL (31-37) Red Cell Distribution Width 13.6 % (11.5-14.5) Platelet Count 131 x10^3/uL (140-400) Neutrophils (%) (Auto) 64 % (31-73) Lymphocytes (%) (Auto) 26 % (24-48) Monocytes (%) (Auto) 8 % (0-9) Eosinophils (%) (Auto) 2 % (0-3) Basophils (%) (Auto) 1 % (0-3) Neutrophils # (Auto) 4.0 x10^3/uL (1.8-7.7) Lymphocytes # (Auto) 1.6 x10^3/uL (1.0-4.8) Monocytes # (Auto) 0.5 x10^3/uL (0.0-1.1) Eosinophils # (Auto) 0.1 x10^3/uL (0.0-0.7) Basophils # (Auto) 0.0 x10^3/uL (0.0-0.2) Sodium Level 148 mmol/L (136-145) Potassium Level 3.5 mmol/L (3.5-5.1) Chloride Level 112 mmol/L (98-107) Carbon Dioxide Level 27 mmol/L (21-32) Anion Gap 9 (6-14) Blood Urea Nitrogen 72 mg/dL (7-20) Creatinine 2.3 mg/dL (0.6-1.0) Estimated GFR (Cockcroft-Gault) 20.1 Glucose Level 128 mg/dL (70-99) Calcium Level 8.3 mg/dL (8.5-10.1) Test 04/10/19 07:32 Glucose (Fingerstick) 113 mg/dL (70-99) Medications Current Medications Albuterol/ Ipratropium (Duoneb) 3 ml TID NEB Last administered on 04/10/19at 08:10; Start 04/09/19 at 14:00 Aspirin (Ecotrin) 81 mg DAILYWBKFT PO ; Start 04/10/19 at 08:00 Atorvastatin Calcium (Lipitor) 20 mg QHS PO Last administered on 04/09/19at 21:39; Start 04/09/19 at 21:00 Calcium/Vitamin D (Oscal D 500mg/ 200uts) 1 tab DAILY PO Last administered on 04/09/19at 13:53; Start 04/09/19 at 11:00 Carvedilol (Coreg) 12.5 mg BIDWMEALS PO Last administered on 04/09/19at 17:37; Start 04/09/19 at 11:00 Clopidogrel Bisulfate (Plavix) 75 mg DAILY PO ; Start 04/10/19 at 09:00; Status UNV Clopidogrel Bisulfate (Plavix) 75 mg DAILYWBKFT PO ; Start 04/10/19 at 08:00 Dextrose (Dextrose 50%-Water Syringe) 12.5 gm PRN Q15MIN PRN IV SEE COMMENTS; Start 04/09/19 at 11:45 Diclofenac Sodium (Voltaren) 1 opal QID TP Last administered on 04/09/19at 21:39; Start 04/09/19 at 13:00 Docusate Sodium (Colace) 100 mg DAILY PO ; Start 04/09/19 at 11:00 Famotidine (Pepcid) 20 mg PRN DAILY PRN PO HEARTBURN / GAS; Start 04/09/19 at 21:00 Ferrous Sulfate (Feosol) 325 mg DAILY PO Last administered on 04/09/19at 13:54; Start 04/09/19 at 11:00 Furosemide (Lasix) 40 mg DAILY IVP ; Start 04/10/19 at 09:00 Influenza Virus Vaccine Quadrival (Afluria Quad 2019-20 (3yr Up) Syringe) 0.5 ml ONCE ONCE VAX IM ; Start 04/10/19 at 09:15; Stop 04/10/19 at 09:17; Status DC Insulin Glargine (Lantus Syringe) 35 unit HS SQ Last administered on 04/09/19at 21:42; Start 04/09/19 at 21:00 Insulin Human Lispro (HumaLOG) 0-5 UNITS TIDWMEALS SQ Last administered on 04/09/19at 17:42; Start 04/09/19 at 12:00 Insulin Human Lispro (HumaLOG) 15 units TIDWMEALS SQ ; Start 04/09/19 at 12:00 Isosorbide Mononitrate (Imdur) 30 mg DAILY PO Last administered on 04/09/19at 13:53; Start 04/09/19 at 11:00 Levothyroxine Sodium (Synthroid) 50 mcg DAILY06 PO Last administered on 04/10/19at 06:48; Start 04/09/19 at 11:00 Levothyroxine Sodium (Synthroid) 50 mcg QFR@0600 PO ; Start 04/12/19 at 06:00 Levothyroxine Sodium (Synthroid) 100 mcg QFR@0700 PO ; Start 04/12/19 at 07:00 Losartan Potassium (Cozaar) 100 mg DAILY PO Last administered on 04/09/19at 13:53; Start 04/09/19 at 11:00 Meropenem (Merrem) 500 mg BID IV ; Start 04/09/19 at 21:00; Status UNV Non-Formulary Medication (Bumetanide ) 0.5 mg BID PO ; Start 04/09/19 at 21:00; Status UNV Pregabalin (Lyrica) 50 mg BID PO Last administered on 04/09/19at 21:39; Start 04/09/19 at 11:00 Vitals/I & O Vital Sign - Last 24 Hours 04/09/19 04/09/19 04/09/19 04/09/19 11:00 13:53 13:53 13:53 Temp 98.0 98.0 Pulse 81 81 81 81 Resp 20 B/P (MAP) 183/85 (117) 183/85 183/85 183/85 Pulse Ox 97 O2 Delivery Nasal Cannula O2 Flow Rate 2.0 04/09/19 04/09/19 04/09/19 04/09/19 15:00 16:17 17:37 19:51 Temp 98.2 98.7 98.2 98.7 Pulse 80 80 66 Resp 16 18 B/P (MAP) 176/84 (114) 144/66 127/61 (83) Pulse Ox 92 98 96 O2 Delivery Nasal Cannula Nasal Cannula Nasal Cannula O2 Flow Rate 2.0 2.0 2.0 04/09/19 04/09/19 04/09/19 04/10/19 20:00 20:46 23:00 03:15 Temp 98.3 98.7 98.3 98.7 Pulse 70 70 Resp 16 18 B/P (MAP) 138/66 (90) 134/61 (85) Pulse Ox 97 93 94 O2 Delivery Nasal Cannula Nasal Cannula Nasal Cannula Nasal Cannula O2 Flow Rate 2.0 2.0 2.0 2.0 04/10/19 04/10/19 07:27 08:10 Temp 98.0 98.0 Pulse 74 Resp 18 B/P (MAP) 131/61 (84) Pulse Ox 92 80 O2 Delivery Nasal Cannula Nasal Cannula O2 Flow Rate 2.0 2.0 Intake and Output 04/09/19 04/09/19 04/10/19 15:00 23:00 07:00 Intake Total 120 ml 160 ml 380 ml Output Total 180 ml 450 ml Balance -60 ml -290 ml 380 ml JAMES CORCORAN MD Apr 10, 2019 10:30
[2019-04-10 10:31] VITALS: BP 161/72
--- NOTE | 2019-04-10 11:02 | RAD ---
EXAM: Chest, 2 views. HISTORY: Congestive heart failure. COMPARISON: 04/09/2019 FINDINGS: 2 views of the chest are obtained. There has been interval increase in a large left pleural effusion and there is a stable moderate right pleural effusion. There is slight increased diffuse mixed interstitial and alveolar infiltrate throughout the left lung with suspected partial left lower lobe collapse or consolidation. There is also increased lower lobe predominant right lung infiltrate with possible superimposed partial lower lobe collapse or consolidation. There is stable enlargement of the cardiac silhouette. There is no pneumothorax. IMPRESSION: 1. Large left pleural effusion and moderate right pleural effusion, the former which is increased compared to the prior study. 2. Slight increased diffuse left upper lobe predominant mixed interstitial and alveolar infiltrate with suspected superimposed bilateral lower lobe partial collapse or partial consolidation. Electronically signed by: Elaina Aaron MD (04/10/2019 10:59 AM) [place] [id number]
[2019-04-10] MEDS: CLOPIDOGREL BISULFATE 75 MG TABLET PO SCH (11:07)
[2019-04-10] MEDS: FUROSEMIDE 40 MG/4 ML VIAL. IVP SCH (11:07)
[2019-04-10] MEDS: CALCIUM CARB/VIT D3 500/200 TABLET. PO SCH (11:07)
[2019-04-10] MEDS: PREGABALIN 50 MG CAPSULE PO SCH ×2 (11:07→21:27)
[2019-04-10] MEDS: LOSARTAN POTASSIUM 50 MG TABLET. PO SCH (11:08)
[2019-04-10] MEDS: ISOSORBIDE MONONITRATE ER 30 MG TAB.ER.24H PO SCH (11:08)
[2019-04-10] MEDS: CARVEDILOL 12.5 MG TABLET. PO SCH ×2 (11:08→18:30)
[2019-04-10] MEDS: DOCUSATE SODIUM 100 MG CAPSULE. PO SCH (11:09)
[2019-04-10] MEDS: FERROUS SULFATE 325 MG TABLET. PO SCH (11:09)
[2019-04-10] MEDS: ASPIRIN ENTERIC COATED 81 MG TABLET.DR. PO SCH (11:09)
[2019-04-10] MEDS: ANTI-COAG MONITOR BY PHARMACY. MC PRN (12:55)
--- NOTE | 2019-04-10 13:14 | PDOC ---
LEVAR ELLIOTT EMMA 04/10/19 1314: CARDIO Progress Notes Date and Time Date of Service 04/10/19 Time of Evaluation 1310 Subjective Subjective: No Chest Pain, No shortness of breath Vitals Vitals Vital Signs Date Time Temp Pulse Resp B/P (MAP) Pulse Ox O2 Delivery O2 Flow Rate FiO2 04/10/19 12:38 98 Nasal Cannula 4.0 04/10/19 11:08 85 04/10/19 10:31 98.2 18 161/72 (101) 98.2 Weight Weight [ ] Input and Output Intake and Output Intake and Output 04/10/19 06:59 Intake Total 660 ml Output Total 630 ml Balance 30 ml Intake Oral 340 ml IV Total 320 ml Output Urine Total 630 ml # Voids 5 Laboratory Labs Laboratory Tests Test 04/09/19 14:30 04/09/19 17:00 04/09/19 17:55 04/09/19 21:00 Urine Collection Type Unknown Urine Color Yellow Urine Clarity Clear Urine pH 7.0 Urine Specific [place] 1.010 Urine Protein >=300 mg/dL (NEG-TRACE) Urine Glucose (UA) Negative mg/dL (NEG) Urine Ketones (Stick) Negative mg/dL (NEG) Urine Blood Small (NEG) Urine Nitrite Negative (NEG) Urine Bilirubin Negative (NEG) Urine Urobilinogen Dipstick 0.2 mg/dL (0.2 mg/dL) Urine Leukocyte Esterase Small (NEG) Urine RBC 1-2 /HPF (0-2) Urine WBC 11-20 /HPF (0-4) Urine Bacteria Many /HPF (0-FEW) Glucose (Fingerstick) 193 mg/dL (70-99) 157 mg/dL (70-99) Heparin Anti-Xa Act, Unfractionated 0.26 IU/mL (0.30-0.70) Test 04/09/19 22:55 04/10/19 05:45 04/10/19 07:32 04/10/19 11:47 Heparin Anti-Xa Act, Unfractionated 0.33 IU/mL (0.30-0.70) 0.34 IU/mL (0.30-0.70) White Blood Count 6.2 x10^3/uL (4.0-11.0) Red Blood Count 2.87 x10^6/uL (3.50-5.40) Hemoglobin 8.5 g/dL (12.0-15.5) Hematocrit 24.9 % (36.0-47.0) Mean Corpuscular Volume 87 fL (79-100) Mean Corpuscular Hemoglobin 30 pg (25-35) Mean Corpuscular Hemoglobin Concent 34 g/dL (31-37) Red Cell Distribution Width 13.6 % (11.5-14.5) Platelet Count 131 x10^3/uL (140-400) Neutrophils (%) (Auto) 64 % (31-73) Lymphocytes (%) (Auto) 26 % (24-48) Monocytes (%) (Auto) 8 % (0-9) Eosinophils (%) (Auto) 2 % (0-3) Basophils (%) (Auto) 1 % (0-3) Neutrophils # (Auto) 4.0 x10^3/uL (1.8-7.7) Lymphocytes # (Auto) 1.6 x10^3/uL (1.0-4.8) Monocytes # (Auto) 0.5 x10^3/uL (0.0-1.1) Eosinophils # (Auto) 0.1 x10^3/uL (0.0-0.7) Basophils # (Auto) 0.0 x10^3/uL (0.0-0.2) Sodium Level 148 mmol/L (136-145) Potassium Level 3.5 mmol/L (3.5-5.1) Chloride Level 112 mmol/L (98-107) Carbon Dioxide Level 27 mmol/L (21-32) Anion Gap 9 (6-14) Blood Urea Nitrogen 72 mg/dL (7-20) Creatinine 2.3 mg/dL (0.6-1.0) Estimated GFR (Cockcroft-Gault) 20.1 Glucose Level 128 mg/dL (70-99) Calcium Level 8.3 mg/dL (8.5-10.1) Glucose (Fingerstick) 113 mg/dL (70-99) 229 mg/dL (70-99) Physical Exam HEENT: Neck Supple W Full Motion Chest: Symmetric LUNGS: Clear to Auscultation Heart: S1S2, RRR Abdomen: Soft N/T Extremities: No Edema Neurology: alert, oriented, follow commands Assessment Assessment 1. NSTEMI; highest 36 2. CAD/3VD and ICM; managed medically as patient/family has declined high- risk intervention multiple times in the past, but now considering. Would like to discussed further with primary director of supply chain, Dr. Oneal. Discussed r/b/a including risk for ROSENDO requiring HD 3. Acute on chronic systolic CHF; Echo showed LVEF 30-35% 3. Accelerated HTN; labile 4. Hyperlipidemia; statin 5. Diabetes, II; as per PCP 6. IGOR on CKD: Cr at 2.3 Recommendations Gentle diuresis Continue heparin drip Hold ACEi/ARB at this time. Supportive care GERI ONEAL MD 04/11/19 0859: CARDIO Progress Notes Assessment Assessment Patient seen and examined 04/10/19. Agree with USED CAR LOT ATTENDANT's assessment and plan. Continue gentle diuresis for acute on chronic systolic heart failure - improving clinically Continue heparin infusion for non-STEMI Patient and family more amenable for cardiac catheterization/high risk PCI Consult nephrology team for renal optimization Plan for cardiac catheterization if patient and family still wants to pursue aggressive measures after discussing with airworthiness safety inspector LEVAR ELLIOTT APRN Apr 10, 2019 13:14 GERI ONEAL MD Apr 11, 2019 08:59
[2019-04-10 14:44] VITALS: BP 144/65
--- NOTE | 2019-04-10 15:28 | PDOC2 ---
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 HAS HAD HX OF CAD NOT AMENABLE TO CABG. NOW HAS CHF. SHE HAS REFUSED ANY PERCUTANEOUS INTERVENTION FROM WHAT I UNDERSTAND. RENAL CONSULT FOR INCREASED CR OF 2.3. SHE HAS LATE STAGE 3,EARLY STAGE 4 CKD WITH CR OF 1.5-2.0 AT BASELINE. 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 Past Medical History Cardiovascular: CAD, CHF, HTN, Hyperlipidemia, Other Pulmonary: No pertinent hx CENTRAL NERVOUS SYSTEM: Other GI: Other Heme/Onc: Anemia NOS, Cancer Hepatobiliary: No pertinent hx Psych: Anxiety, Depression Musculoskeletal: Osteoarthritis Rheumatologic: No pertinent hx Infectious disease: Other Renal/: UTI Endocrine: Diabetes Past Surgical History Past Surgical History: Total hip replacement Family History Family History: No Significant, Other Social History No ALCOHOL: none Drugs: None Lives: with Family Current Problem List Problem List Problems Medical Problems: (1) NSTEMI (non-ST elevated myocardial infarction) Status: Acute Current Medications Current Medications Current Medications Aspirin (Children'S Aspirin) 324 mg 1X ONCE PO Last administered on 04/09/19at 05:47; Start 04/09/19 at 05:15; Stop 04/09/19 at 05:50; Status DC Fentanyl Citrate (Fentanyl 2ml Vial) 50 mcg 1X ONCE IV Last administered on 04/09/19at 05:47; Start 04/09/19 at 05:30; Stop 04/09/19 at 05:50; Status DC Nitroglycerin (Nitro-Bid Oint) 1 inch 1X ONCE TP Last administered on 04/09/19at 05:47; Start 04/09/19 at 05:30; Stop 04/09/19 at 05:51; Status DC Ondansetron HCl (Zofran) 4 mg PRN Q8HRS PRN IV NAUSEA/VOMITING; Start 04/09/19 at 05:30; Stop 04/10/19 at 05:29; Status DC Fentanyl Citrate (Fentanyl 2ml Vial) 50 mcg PRN Q1HR PRN IV PAIN; Start at 05:30; Stop 04/10/19 at 05:29; Status DC Acetaminophen (Tylenol) 650 mg PRN Q4HRS PRN PO FEVER; Start 04/09/19 at 05:30; Stop 04/10/19 at 05:29; Status DC Sodium Chloride 500 ml @ 500 mls/hr 1X ONCE IV ; Start 04/09/19 at 05:45; Stop 04/09/19 at 06:44; Status UNV Heparin Sodium/ Dextrose 500 ml @ 0 mls/hr CONT PRN IV PER PROTOCOL Last administered on 04/09/19at 06:12; Start 04/09/19 at 06:00 Heparin Sodium (Porcine) (Heparin Sodium) 1,600 unit PRN Q6HRS PRN IV FOR UFH LEVEL LESS THAN 0.2; Start 04/09/19 at 06:00 Heparin Sodium (Porcine) (Heparin Sodium) 3,900 unit 1X ONCE IV Last administered on 04/09/19at 06:11; Start 04/09/19 at 06:00; Stop 04/09/19 at 06:01; Status DC Furosemide (Lasix) 40 mg 1X ONCE IVP Last administered on 04/09/19at 10:22; Start 04/09/19 at 10:00; Stop 04/09/19 at 10:01; Status DC Furosemide (Lasix) 40 mg DAILY IVP Last administered on 04/10/19at 11:07; Start 04/10/19 at 09:00 Aspirin (Ecotrin) 81 mg DAILYWBKFT PO Last administered on 04/10/19at 11:09; Start 04/10/19 at 08:00 Clopidogrel Bisulfate (Plavix) 75 mg DAILYWBKFT PO Last administered on 04/10/19at 11:07; Start 04/10/19 at 08:00 Clopidogrel Bisulfate (Plavix) 75 mg 1X ONCE PO Last administered on 04/09/19at 10:23; Start 04/09/19 at 10:00; Stop 04/09/19 at 10:01; Status DC Amlodipine Besylate (Norvasc) 10 mg 1X ONCE PO Last administered on 04/09/19at 10:23; Start 04/09/19 at 10:30; Stop 04/09/19 at 10:31; Status DC Info (Anti-Coagulation Monitoring By Pharmacy) 1 each PRN DAILY PRN MC SEE COMMENTS Last administered on 04/10/19 12:55; Start 04/09/19 at 10:15 Acetaminophen/ Codeine Phosphate (Tylenol #3) 1 tab PRN Q12HR PRN PO PAIN; Start 04/09/19 at 10:30 Atorvastatin Calcium (Lipitor) 20 mg QHS PO Last administered on 04/09/19 21:39; Start 04/09/19 at 21:00 Carvedilol (Coreg) 12.5 mg BIDWMEALS PO Last administered on 04/10/19 11:08; Start 04/09/19 at 11:00 Clopidogrel Bisulfate (Plavix) 75 mg DAILY PO ; Start 04/10/19 at 09:00; Status UNV Diclofenac Sodium (Voltaren) 1 opal QID TP Last administered on 04/09/19 21:39; Start 04/09/19 at 13:00 Docusate Sodium (Colace) 100 mg DAILY PO Last administered on 04/10/19 11:09; Start 04/09/19 at 11:00 Ferrous Sulfate (Feosol) 325 mg DAILY PO Last administered on 04/10/19 11:09; Start 04/09/19 at 11:00 Insulin Glargine (Lantus Syringe) 35 unit HS SQ Last administered on 04/09/19 21:42; Start 04/09/19 at 21:00 Albuterol/ Ipratropium (Duoneb) 3 ml TID NEB Last administered on 04/10/19 12:38; Start 04/09/19 at 14:00 Isosorbide Mononitrate (Imdur) 30 mg DAILY PO Last administered on 04/10/19 11:08; Start 04/09/19 at 11:00 Levothyroxine Sodium (Synthroid) 100 mcg QFR@0700 PO ; Start 04/12/19 at 07:00; Status Cancel Meropenem (Merrem) 500 mg BID IV ; Start 04/09/19 at 21:00; Status UNV Pregabalin (Lyrica) 50 mg BID PO Last administered on 04/10/19 11:07; Start 04/09/19 at 11:00 Non-Formulary Medication (Bumetanide ) 0.5 mg BID PO ; Start 04/09/19 at 21:00; Status UNV Calcium/Vitamin D (Oscal D 500mg/ 200uts) 1 tab DAILY PO Last administered on 04/10/19at 11:07; Start 04/09/19 at 11:00 Famotidine (Pepcid) 20 mg PRN DAILY PRN PO HEARTBURN / GAS; Start 04/09/19 at 21:00 Insulin Human Lispro (HumaLOG) 15 units TIDWMEALS SQ Last administered on 04/10/19at 13:20; Start 04/09/19 at 12:00 Losartan Potassium (Cozaar) 100 mg DAILY PO Last administered on 04/10/19at 11:08; Start 04/09/19 at 11:00 Levothyroxine Sodium (Synthroid) 50 mcg DAILY06 PO Last administered on 04/10/19at 06:48; Start 04/09/19 at 11:00 Levothyroxine Sodium (Synthroid) 50 mcg QFR@0600 PO ; Start 04/12/19 at 06:00 Insulin Human Lispro (HumaLOG) 0-5 UNITS TIDWMEALS SQ Last administered on 04/09/19at 17:42; Start 04/09/19 at 12:00 Dextrose (Dextrose 50%-Water Syringe) 12.5 gm PRN Q15MIN PRN IV SEE COMMENTS; Start 04/09/19 at 11:45 Influenza Virus Vaccine Quadrival (Afluria Quad 2019-20 (3yr Up) Syringe) 0.5 ml ONCE ONCE VAX IM ; Start 04/10/19 at 09:15; Stop 04/10/19 at 09:17; Status DC Active Scripts Active Meropenem 500 Mg Vial 500 Mg IV BID 5 Days Bumetanide 0.5 Mg Tablet 0.5 Mg PO BID 30 Days Carvedilol (Carvedilol) 12.5 Mg Tablet 12.5 Mg PO BIDWMEALS 30 Days Isosorbide Mononitrate Er (Isosorbide Mononitrate) 30 Mg Tab.er.24h 30 Mg PO DAILY 30 Days Atorvastatin Calcium 20 Mg Tablet 20 Mg PO QHS 30 Days Reported Levothyroxine Sodium 50 Mcg Tablet 50 Mcg PO DAILYAC Voltaren (Diclofenac Sodium) 100 Gm Gel..gram. 1 Gm TP QID Ferrous Sulfate 325 Mg Tablet 325 Mg PO DAILY Levothyroxine Sodium 100 Mcg Tablet 1 Tab PO QFR Clopidogrel (Clopidogrel Bisulfate) 75 Mg Tablet 75 Mg PO DAILY Lyrica (Pregabalin) 50 Mg Capsule 1 Cap PO BID Pepcid (Famotidine) 40 Mg Tablet 40 Mg PO DAILY PRN Duoneb 0.5-3(2.5) Mg/3 Ml (Albuterol/Ipratropium) 3 Ml Ampul.neb 3 Ml NEB TID NITROGLYCERIN SubLingual (Nitroglycerin) 0.4 Mg Tab.subl 1 Tab SL UD PRN Tylenol With Codeine #3 Tablet (Acetaminophen/Codeine Phosphate) 1 Each Tablet 1 Tab PO PRN Q12HR PRN Losartan Potassium 100 Mg Tablet 100 Mg PO DAILY Humalog (Insulin Lispro) 100 Unit/1 Ml Cartridge 15 Unit SQ TIDWMEALS Docusate Sodium 100 Mg Capsule 1 Cap PO DAILY Calcium + Vitamin D Tablet (Calcium Carbonate/Vitamin D3) 1 Each Tablet 1 Each PO DAILY Lantus (Insulin Glargine,Hum.rec.anlog) 100 Unit/1 Ml Vial 35 Unit SQ HS Allergies Allergies: Coded Allergies: No Known Medication Allergies (Verified Allergy, Unknown, 08/01/18) ROS Review of System FULL ROS DONE. ABOVE AND UNRELIABLE FOR REST Physical Exam General: Alert, Cooperative, No acute distress HEENT: Atraumatic Lungs: Other (DECREASED AT BASES) Heart: Regular rate Abdomen: Normal bowel sounds, No tenderness Extremities: No clubbing Skin: No breakdown Neuro: Normal speech Psych/Mental Status: Mental status NL MUSCULOSKELETAL: No joint tenderness, No deformity Vitals VITALS Vital Signs Date Time Temp Pulse Resp B/P (MAP) Pulse Ox O2 Delivery O2 Flow Rate FiO2 04/10/19 14:44 98.4 68 18 144/65 (91) 98 Nasal Cannula 2.0 98.4 Labs Labs Laboratory Tests Test 04/09/19 05:10 04/09/19 08:17 04/09/19 08:40 04/09/19 11:32 White Blood Count 9.0 x10^3/uL (4.0-11.0) Red Blood Count 3.59 x10^6/uL (3.50-5.40) Hemoglobin 10.7 g/dL (12.0-15.5) Hematocrit 31.2 % (36.0-47.0) Mean Corpuscular Volume 87 fL (79-100) Mean Corpuscular Hemoglobin 30 pg (25-35) Mean Corpuscular Hemoglobin Concent 34 g/dL (31-37) Red Cell Distribution Width 13.5 % (11.5-14.5) Platelet Count 165 x10^3/uL (140-400) Neutrophils (%) (Auto) 77 % (31-73) Lymphocytes (%) (Auto) 15 % (24-48) Monocytes (%) (Auto) 6 % (0-9) Eosinophils (%) (Auto) 1 % (0-3) Basophils (%) (Auto) 1 % (0-3) Neutrophils # (Auto) 6.9 x10^3/uL (1.8-7.7) Lymphocytes # (Auto) 1.3 x10^3/uL (1.0-4.8) Monocytes # (Auto) 0.6 x10^3/uL (0.0-1.1) Eosinophils # (Auto) 0.1 x10^3/uL (0.0-0.7) Basophils # (Auto) 0.1 x10^3/uL (0.0-0.2) Sodium Level 146 mmol/L (136-145) Potassium Level 4.2 mmol/L (3.5-5.1) Chloride Level 110 mmol/L (98-107) Carbon Dioxide Level 25 mmol/L (21-32) Anion Gap 11 (6-14) Blood Urea Nitrogen 73 mg/dL (7-20) Creatinine 2.1 mg/dL (0.6-1.0) Estimated GFR (Cockcroft-Gault) 22.3 BUN/Creatinine Ratio 35 (6-20) Glucose Level 242 mg/dL (70-99) Hemoglobin A1c 7.8 % (4.8-5.6) Calcium Level 8.6 mg/dL (8.5-10.1) Total Bilirubin 0.3 mg/dL (0.2-1.0) Aspartate Amino Transf (AST/SGOT) 76 U/L (15-37) Alanine Aminotransferase (ALT/SGPT) 28 U/L (14-59) Alkaline Phosphatase 130 U/L (46-116) Troponin I Quantitative 21.346 ng/mL (0.000-0.055) 29.935 ng/mL (0.000-0.055) VT-Pnk-M-Type Natriuretic Peptide > 19382 pg/mL (0-449) Total Protein 6.6 g/dL (6.4-8.2) Albumin 3.5 g/dL (3.4-5.0) Albumin/Globulin Ratio 1.1 (1.0-1.7) Thyroid Stimulating Hormone (TSH) 11.950 uIU/mL (0.358-3.74) Glucose (Fingerstick) 199 mg/dL (70-99) 205 mg/dL (70-99) Triglycerides Level 76 mg/dL (0-150) Cholesterol Level 131 mg/dL (0-200) LDL Cholesterol, Calculated 72 mg/dL (0-100) VLDL Cholesterol, Calculated 15 mg/dL (0-40) Non-HDL Cholesterol Calculated 87 mg/dL (0-129) HDL Cholesterol 44 mg/dL (40-60) Cholesterol/HDL Ratio 3.0 Test 04/09/19 11:45 04/09/19 14:30 04/09/19 17:00 04/09/19 17:55 Heparin Anti-Xa Act, Unfractionated 0.66 IU/mL (0.30-0.70) 0.26 IU/mL (0.30-0.70) Troponin I Quantitative 36.776 ng/mL (0.000-0.055) Urine Collection Type Unknown Urine Color Yellow Urine Clarity Clear Urine pH 7.0 Urine Specific [place] 1.010 Urine Protein >=300 mg/dL (NEG-TRACE) Urine Glucose (UA) Negative mg/dL (NEG) Urine Ketones (Stick) Negative mg/dL (NEG) Urine Blood Small (NEG) Urine Nitrite Negative (NEG) Urine Bilirubin Negative (NEG) Urine Urobilinogen Dipstick 0.2 mg/dL (0.2 mg/dL) Urine Leukocyte Esterase Small (NEG) Urine RBC 1-2 /HPF (0-2) Urine WBC 11-20 /HPF (0-4) Urine Bacteria Many /HPF (0-FEW) Glucose (Fingerstick) 193 mg/dL (70-99) Test 04/09/19 21:00 04/09/19 22:55 04/10/19 05:45 04/10/19 07:32 Glucose (Fingerstick) 157 mg/dL (70-99) 113 mg/dL (70-99) Heparin Anti-Xa Act, Unfractionated 0.33 IU/mL (0.30-0.70) 0.34 IU/mL (0.30-0.70) White Blood Count 6.2 x10^3/uL (4.0-11.0) Red Blood Count 2.87 x10^6/uL (3.50-5.40) Hemoglobin 8.5 g/dL (12.0-15.5) Hematocrit 24.9 % (36.0-47.0) Mean Corpuscular Volume 87 fL (79-100) Mean Corpuscular Hemoglobin 30 pg (25-35) Mean Corpuscular Hemoglobin Concent 34 g/dL (31-37) Red Cell Distribution Width 13.6 % (11.5-14.5) Platelet Count 131 x10^3/uL (140-400) Neutrophils (%) (Auto) 64 % (31-73) Lymphocytes (%) (Auto) 26 % (24-48) Monocytes (%) (Auto) 8 % (0-9) Eosinophils (%) (Auto) 2 % (0-3) Basophils (%) (Auto) 1 % (0-3) Neutrophils # (Auto) 4.0 x10^3/uL (1.8-7.7) Lymphocytes # (Auto) 1.6 x10^3/uL (1.0-4.8) Monocytes # (Auto) 0.5 x10^3/uL (0.0-1.1) Eosinophils # (Auto) 0.1 x10^3/uL (0.0-0.7) Basophils # (Auto) 0.0 x10^3/uL (0.0-0.2) Sodium Level 148 mmol/L (136-145) Potassium Level 3.5 mmol/L (3.5-5.1) Chloride Level 112 mmol/L (98-107) Carbon Dioxide Level 27 mmol/L (21-32) Anion Gap 9 (6-14) Blood Urea Nitrogen 72 mg/dL (7-20) Creatinine 2.3 mg/dL (0.6-1.0) Estimated GFR (Cockcroft-Gault) 20.1 Glucose Level 128 mg/dL (70-99) Calcium Level 8.3 mg/dL (8.5-10.1) Test 04/10/19 11:47 Glucose (Fingerstick) 229 mg/dL (70-99) Laboratory Tests Test 04/09/19 17:00 04/09/19 17:55 04/09/19 21:00 04/09/19 22:55 Glucose (Fingerstick) 193 mg/dL (70-99) 157 mg/dL (70-99) Heparin Anti-Xa Act, Unfractionated 0.26 IU/mL (0.30-0.70) 0.33 IU/mL (0.30-0.70) Test 04/10/19 05:45 04/10/19 07:32 04/10/19 11:47 White Blood Count 6.2 x10^3/uL (4.0-11.0) Red Blood Count 2.87 x10^6/uL (3.50-5.40) Hemoglobin 8.5 g/dL (12.0-15.5) Hematocrit 24.9 % (36.0-47.0) Mean Corpuscular Volume 87 fL (79-100) Mean Corpuscular Hemoglobin 30 pg (25-35) Mean Corpuscular Hemoglobin Concent 34 g/dL (31-37) Red Cell Distribution Width 13.6 % (11.5-14.5) Platelet Count 131 x10^3/uL (140-400) Neutrophils (%) (Auto) 64 % (31-73) Lymphocytes (%) (Auto) 26 % (24-48) Monocytes (%) (Auto) 8 % (0-9) Eosinophils (%) (Auto) 2 % (0-3) Basophils (%) (Auto) 1 % (0-3) Neutrophils # (Auto) 4.0 x10^3/uL (1.8-7.7) Lymphocytes # (Auto) 1.6 x10^3/uL (1.0-4.8) Monocytes # (Auto) 0.5 x10^3/uL (0.0-1.1) Eosinophils # (Auto) 0.1 x10^3/uL (0.0-0.7) Basophils # (Auto) 0.0 x10^3/uL (0.0-0.2) Heparin Anti-Xa Act, Unfractionated 0.34 IU/mL (0.30-0.70) Sodium Level 148 mmol/L (136-145) Potassium Level 3.5 mmol/L (3.5-5.1) Chloride Level 112 mmol/L (98-107) Carbon Dioxide Level 27 mmol/L (21-32) Anion Gap 9 (6-14) Blood Urea Nitrogen 72 mg/dL (7-20) Creatinine 2.3 mg/dL (0.6-1.0) Estimated GFR (Cockcroft-Gault) 20.1 Glucose Level 128 mg/dL (70-99) Calcium Level 8.3 mg/dL (8.5-10.1) Glucose (Fingerstick) 113 mg/dL (70-99) 229 mg/dL (70-99) Assessment/Plan Assessment/Plan IMP CKD STAGE 3B TO 4 ACUTE ON CHRONIC CHF MALIGNANT HTN DM II HTN PLAN CARDIOLOGY EVAL AND TX DIURESIS AFTER LOAD REDUCTION WILL FOLLOW VLADIMIR LAMB MD Apr 10, 2019 15:28
[2019-04-10] MEDS: HEPARIN 25,000UTS/500ML PREMIX 500 ML IV PRN (18:42)
[2019-04-10 19:00] VITALS: BP 167/74
[2019-04-10] MEDS: ATORVASTATIN CALCIUM 20 MG TABLET PO SCH (21:27)
[2019-04-10] MEDS: INSULIN GLARGINE SYRINGE. SQ SCH (21:31)
[2019-04-10] MEDS: ACETAMINOPHEN/CODEINE 300/30MG TABLET. PO PRN (21:39)
[2019-04-10 23:00] VITALS: BP 143/67
[2019-04-11 03:00] VITALS: BP 142/64
[2019-04-11 05:52] LABS: BASO % 1 % (0-3); EOS # 0.1 x10^3/uL (0.0-0.7); EOS % 2 % (0-3); HEMATOCRIT 23.1 % (36.0-47.0); HEMOGLOBIN 7.9 g/dL (12.0-15.5); LYMPH # 1.2 x10^3/uL (1.0-4.8); LYMPH % 22 % (24-48); MEAN CORPUSCULAR HEMOGLOBIN 30 pg (25-35); MEAN CORPUSCULAR HGB CONC 34 g/dL (31-37); MEAN CORPUSCULAR VOLUME 87 fL (79-100); MONO # 0.5 x10^3/uL (0.0-1.1); MONO % 9 % (0-9); NEUT # 3.4 x10^3/uL (1.8-7.7); NEUT % 66 % (31-73); PLATELET COUNT 110 x10^3/uL (140-400); RED BLOOD COUNT 2.64 x10^6/uL (3.50-5.40); RED CELL DISTRIBUTION WIDTH 13.4 % (11.5-14.5); WHITE BLOOD COUNT 5.1 x10^3/uL (4.0-11.0)
[2019-04-11] MEDS: LEVOTHYROXINE 50 MCG TABLET PO SCH (06:00)
[2019-04-11 06:02] LABS: CREATININE 2.3 mg/dL (0.6-1.0); GFR 20.1; MAGNESIUM 2.2 mg/dL (1.8-2.4); POTASSIUM 3.6 mmol/L (3.5-5.1)
[2019-04-11 07:00] VITALS: BP 143/65
[2019-04-11] MEDS: INSULIN LISPRO 300 UNITS/3 ML VIAL. SQ SCH ×6 (08:00→17:00)
[2019-04-11] MEDS: IPRATRPIUM/ALBUTEROL 0.5/2.5MG 3 ML NEBU. NEB SCH ×3 (08:12→20:11)
[2019-04-11] MEDS: DICLOFENAC SODIUM 1% TOPICAL GEL 100GM TUBE. TP SCH ×4 (09:00→20:46)
[2019-04-11] MEDS: CALCIUM CARB/VIT D3 500/200 TABLET. PO SCH (09:01)
[2019-04-11] MEDS: CARVEDILOL 12.5 MG TABLET. PO SCH ×2 (09:01→17:16)
[2019-04-11] MEDS: FERROUS SULFATE 325 MG TABLET. PO SCH (09:01)
[2019-04-11] MEDS: PREGABALIN 50 MG CAPSULE PO SCH ×2 (09:02→20:46)
[2019-04-11] MEDS: DOCUSATE SODIUM 100 MG CAPSULE. PO SCH (09:02)
[2019-04-11] MEDS: LOSARTAN POTASSIUM 50 MG TABLET. PO SCH (09:02)
[2019-04-11] MEDS: ISOSORBIDE MONONITRATE ER 30 MG TAB.ER.24H PO SCH (09:02)
[2019-04-11] MEDS: ASPIRIN ENTERIC COATED 81 MG TABLET.DR. PO SCH (09:02)
[2019-04-11] MEDS: FUROSEMIDE 40 MG/4 ML VIAL. IVP SCH (09:03)
[2019-04-11] MEDS: CLOPIDOGREL BISULFATE 75 MG TABLET PO SCH (09:03)
--- NOTE | 2019-04-11 10:01 | PDOC ---
PROGRESS NOTES Subjective Subjective feels ok Objective Objective Vital Signs Date Time Temp Pulse Resp B/P (MAP) Pulse Ox O2 Delivery O2 Flow Rate FiO2 04/11/19 09:02 67 143/65 04/11/19 08:13 97 Nasal Cannula 3.0 04/11/19 07:00 98.3 16 98.3 Intake and Output 04/11/19 07:00 Intake Total 920 ml Output Total 250 ml Balance 670 ml Intake Oral 920 ml Stool Total 250 ml # Voids 7 Physical Exam Abdomen: Normal bowel sounds, No tenderness Heart: Regular rate Extremities: No clubbing General: Alert, Cooperative, No acute distress HEENT: Atraumatic Lungs: Other (DECREASED AT BASES) MUSCULOSKELETAL: No joint tenderness, No deformity Neuro: Normal speech Psych/Mental Status: Mental status NL Skin: No breakdown Diagnosis Problem List Problems Medical Problems: (1) NSTEMI (non-ST elevated myocardial infarction) Status: Acute Assessment Assessment Problems Medical Problems: (1) NSTEMI (non-ST elevated myocardial infarction) Status: Acute FINAL IMPRESSION: 1. Non-ST elevation myocardial infarction. 2. Congestive heart failure, [id number], systolic. 3. Known 3-vessel disease, coronary artery disease. 4. Hypertension. 5. Hyperlipidemia. 6. 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 7. Insulin-dependent diabetes. 8. Recurrent urinary tract infections. 9. Hypothyroidism. PLAN:Renal consult appreciated. going for cath/stent placement /impalla tomorrow. cr 2.3 worse, troponin trending up 39 today pt and family want to proceed with cath and angioplasty. spoke with cardiology.Procedure planned for tomorrow. cxr jacki pleural effusion. iv lasix for now. At this time was to admit to hospital. The patient refused cardiac intervention at this time. Continue medical treatment with nitroglycerin and heparin. Monitor kidney function. Also check for urinary tract infection, she gets frequent UTIs. Plan Plan of Care Problems Medical Problems: (1) NSTEMI (non-ST elevated myocardial infarction) Status: Acute Comment Review of Relevant I have reviewed the following items kathleen (where applicable) has been applied. Labs Laboratory Tests Test 04/10/19 11:47 04/10/19 16:58 04/10/19 21:07 04/11/19 05:00 Glucose (Fingerstick) 229 mg/dL (70-99) 107 mg/dL (70-99) 226 mg/dL (70-99) White Blood Count 5.1 x10^3/uL (4.0-11.0) Red Blood Count 2.64 x10^6/uL (3.50-5.40) Hemoglobin 7.9 g/dL (12.0-15.5) Hematocrit 23.1 % (36.0-47.0) Mean Corpuscular Volume 87 fL (79-100) Mean Corpuscular Hemoglobin 30 pg (25-35) Mean Corpuscular Hemoglobin Concent 34 g/dL (31-37) Red Cell Distribution Width 13.4 % (11.5-14.5) Platelet Count 110 x10^3/uL (140-400) Neutrophils (%) (Auto) 66 % (31-73) Lymphocytes (%) (Auto) 22 % (24-48) Monocytes (%) (Auto) 9 % (0-9) Eosinophils (%) (Auto) 2 % (0-3) Basophils (%) (Auto) 1 % (0-3) Neutrophils # (Auto) 3.4 x10^3/uL (1.8-7.7) Lymphocytes # (Auto) 1.2 x10^3/uL (1.0-4.8) Monocytes # (Auto) 0.5 x10^3/uL (0.0-1.1) Eosinophils # (Auto) 0.1 x10^3/uL (0.0-0.7) Basophils # (Auto) 0.0 x10^3/uL (0.0-0.2) Heparin Anti-Xa Act, Unfractionated 0.12 IU/mL (0.30-0.70) Sodium Level 144 mmol/L (136-145) Potassium Level 3.6 mmol/L (3.5-5.1) Chloride Level 109 mmol/L (98-107) Carbon Dioxide Level 27 mmol/L (21-32) Anion Gap 8 (6-14) Blood Urea Nitrogen 73 mg/dL (7-20) Creatinine 2.3 mg/dL (0.6-1.0) Estimated GFR (Cockcroft-Gault) 20.1 Glucose Level 179 mg/dL (70-99) Calcium Level 8.0 mg/dL (8.5-10.1) Magnesium Level 2.2 mg/dL (1.8-2.4) Test 04/11/19 08:01 Glucose (Fingerstick) 111 mg/dL (70-99) Medications Current Medications Carvedilol (Coreg) 25 mg BIDWMEALS PO Last administered on 04/11/19at 09:01; Start 04/10/19 at 17:00 Insulin Glargine (Lantus Syringe) 15 unit HS SQ ; Start 04/11/19 at 21:00; Status UNV Insulin Human Lispro (HumaLOG) 5 units TIDWMEALS SQ ; Start 04/11/19 at 12:00; Status UNV Levothyroxine Sodium (Synthroid) 50 mcg QFR@0600 PO ; Start 04/12/19 at 06:00 Levothyroxine Sodium (Synthroid) 100 mcg QFR@0700 PO ; Start 04/12/19 at 07:00; Status Cancel Vitals/I & O Vital Sign - Last 24 Hours 04/10/19 04/10/19 04/10/19 04/10/19 10:31 11:08 11:08 11:08 Temp 98.2 98.2 Pulse 80 80 79 85 Resp 18 B/P (MAP) 161/72 (101) Pulse Ox 92 O2 Delivery Nasal Cannula O2 Flow Rate 2.0 04/10/19 04/10/19 04/10/19 04/10/19 12:38 14:44 18:30 19:00 Temp 98.4 98.2 98.4 98.2 Pulse 68 80 78 Resp 18 20 B/P (MAP) 144/65 (91) 167/74 (105) Pulse Ox 98 98 96 O2 Delivery Nasal Cannula Nasal Cannula Nasal Cannula O2 Flow Rate 4.0 2.0 2.0 04/10/19 04/10/19 04/10/19 04/10/19 20:00 21:39 22:39 23:00 Temp 98.1 98.1 Pulse 74 Resp 16 B/P (MAP) 143/67 (92) Pulse Ox 96 96 96 O2 Delivery Nasal Cannula Nasal Cannula Nasal Cannula Nasal Cannula O2 Flow Rate 2.0 2.0 2.0 2.0 04/11/19 04/11/19 04/11/19 04/11/19 03:00 07:00 08:13 09:01 Temp 98.5 98.3 98.5 98.3 Pulse 72 67 67 Resp 16 16 B/P (MAP) 142/64 (90) 143/65 (91) 143/65 Pulse Ox 95 98 97 O2 Delivery Nasal Cannula Nasal Cannula O2 Flow Rate 2.0 2.0 3.0 04/11/19 04/11/19 09:02 09:02 Pulse 67 67 B/P (MAP) 143/65 143/65 Intake and Output 04/10/19 04/10/19 04/11/19 15:00 23:00 07:00 Intake Total 120 ml 800 ml Output Total 250 ml Balance 120 ml 800 ml -250 ml JAMES CORCORAN MD Apr 11, 2019 10:01
--- NOTE | 2019-04-11 10:56 | PDOC ---
SUBJECTIVE ROS Stable , On o2 by NC, NAD OBJECTIVE Vital Signs Vital Signs Date Time Temp Pulse Resp B/P (MAP) Pulse Ox O2 Delivery O2 Flow Rate FiO2 04/11/19 09:02 67 143/65 04/11/19 08:13 97 Nasal Cannula 3.0 04/11/19 07:00 98.3 16 98.3 I & 0 Intake and Output 04/11/19 07:00 Intake Total 920 ml Output Total 250 ml Balance 670 ml Intake Oral 920 ml Stool Total 250 ml # Voids 7 PHYSICAL EXAM Physical Exam GEN: NAD HEENT: patient is blind in the left eye, On o2 by NC NECK: Supple. CARDIOVASCULAR: S1, S2. No murmurs. LUNGS: CTA, Non labored ABDOMEN: Soft, bowel sounds present No Simpson, No CVA or SP tenderness EXTREMITIES: no edema. 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 Didn't keep follow up appt with renal as OP in December -Pt 's family informed us that she decided to go on Hospice Malignant HTN - Stable currently Recurrent UTI- per primary HTN: Adrenals Normal on CT Renal Duplex in 2016- No e/o significant ALVARADO Non-ST elevation myocardial infarction managed medically as patient/family has declined high-risk intervention multiple times in the past, but now considering Acute on chronic systolic CHF; Echo showed LVEF 30-35% CAD / 3 V Deon pleural effusion- Thoracentesis in the past On iv lasix DM2 COMMENT/RELEVANT DATA Meds Current Medications Medications (Trade) Dose Ordered Sig/Kyle Start Time Stop Time Status Last Admin Dose Admin Acetaminophen (Tylenol) 650 mg PRN Q4HRS PRN 04/09/19 05:30 04/10/19 05:29 DC Acetaminophen/ Codeine Phosphate (Tylenol #3) 1 tab PRN Q12HR PRN 04/09/19 10:30 04/10/19 21:39 1 TAB Albuterol/ Ipratropium (Duoneb) 3 ml TID 04/09/19 14:00 04/11/19 08:12 3 ML Amlodipine Besylate (Norvasc) 10 mg 1X ONCE 04/09/19 10:30 04/09/19 10:31 DC 04/09/19 10:23 10 MG Aspirin (Children'S Aspirin) 324 mg 1X ONCE 04/09/19 05:15 04/09/19 05:50 DC 04/09/19 05:47 324 MG Aspirin (Ecotrin) 81 mg DAILYWBKFT 04/10/19 08:00 04/11/19 09:02 81 MG Atorvastatin Calcium (Lipitor) 20 mg QHS 04/09/19 21:00 04/10/19 21:27 20 MG Calcium/Vitamin D (Oscal D 500mg/ 200uts) 1 tab DAILY 04/09/19 11:00 04/11/19 09:01 1 TAB Carvedilol (Coreg) 25 mg BIDWMEALS 04/10/19 17:00 04/11/19 09:01 25 MG Clopidogrel Bisulfate (Plavix) 75 mg DAILY 04/10/19 09:00 UNV Dextrose (Dextrose 50%-Water Syringe) 12.5 gm PRN Q15MIN PRN 04/09/19 11:45 Diclofenac Sodium (Voltaren) 1 opal QID 04/09/19 13:00 04/09/19 21:39 1 OPAL Docusate Sodium (Colace) 100 mg DAILY 04/09/19 11:00 04/11/19 09:02 100 MG Famotidine (Pepcid) 20 mg PRN DAILY PRN 04/09/19 21:00 Fentanyl Citrate (Fentanyl 2ml Vial) 50 mcg PRN Q1HR PRN 04/09/19 05:30 04/10/19 05:29 DC Ferrous Sulfate (Feosol) 325 mg DAILY 04/09/19 11:00 04/11/19 09:01 325 MG Furosemide (Lasix) 40 mg DAILY 04/10/19 09:00 04/11/19 09:03 40 MG Heparin Sodium (Porcine) (Heparin Sodium) 3,900 unit 1X ONCE 04/09/19 06:00 04/09/19 06:01 DC 04/09/19 06:11 3,900 UNIT Heparin Sodium/ Dextrose 500 ml @ 0 mls/hr CONT PRN 04/09/19 06:00 04/10/19 18:42 15.6 MLS/HR Influenza Virus Vaccine Quadrival (Afluria Quad 2019-20 (3yr Up) Syringe) 0.5 ml ONCE ONCE 04/10/19 09:15 04/10/19 09:17 DC Info (Anti-Coagulation Monitoring By Pharmacy) 1 each PRN DAILY PRN 04/09/19 10:15 04/10/19 12:55 1 EACH Insulin Glargine (Lantus Syringe) 15 unit HS 04/11/19 21:00 Insulin Human Lispro (HumaLOG) 5 units TIDWMEALS 04/11/19 12:00 Isosorbide Mononitrate (Imdur) 30 mg DAILY 04/09/19 11:00 04/11/19 09:02 30 MG Levothyroxine Sodium (Synthroid) 50 mcg QFR@0600 04/12/19 06:00 Losartan Potassium (Cozaar) 100 mg DAILY 04/09/19 11:00 04/11/19 09:02 100 MG Meropenem (Merrem) 500 mg BID 04/09/19 21:00 UNV Nitroglycerin (Nitro-Bid Oint) 1 inch 1X ONCE 04/09/19 05:30 04/09/19 05:51 DC 04/09/19 05:47 1 INCH Non-Formulary Medication (Bumetanide ) 0.5 mg BID 04/09/19 21:00 UNV Ondansetron HCl (Zofran) 4 mg PRN Q8HRS PRN 04/09/19 05:30 04/10/19 05:29 DC Pregabalin (Lyrica) 50 mg BID 04/09/19 11:00 04/11/19 09:02 50 MG Sodium Chloride 500 ml @ 500 mls/hr 1X ONCE 04/09/19 05:45 04/09/19 06:44 UNV Lab Laboratory Tests Test 04/10/19 11:47 04/10/19 16:58 04/10/19 21:07 04/11/19 05:00 Glucose (Fingerstick) 229 mg/dL (70-99) 107 mg/dL (70-99) 226 mg/dL (70-99) White Blood Count 5.1 x10^3/uL (4.0-11.0) Red Blood Count 2.64 x10^6/uL (3.50-5.40) Hemoglobin 7.9 g/dL (12.0-15.5) Hematocrit 23.1 % (36.0-47.0) Mean Corpuscular Volume 87 fL (79-100) Mean Corpuscular Hemoglobin 30 pg (25-35) Mean Corpuscular Hemoglobin Concent 34 g/dL (31-37) Red Cell Distribution Width 13.4 % (11.5-14.5) Platelet Count 110 x10^3/uL (140-400) Neutrophils (%) (Auto) 66 % (31-73) Lymphocytes (%) (Auto) 22 % (24-48) Monocytes (%) (Auto) 9 % (0-9) Eosinophils (%) (Auto) 2 % (0-3) Basophils (%) (Auto) 1 % (0-3) Neutrophils # (Auto) 3.4 x10^3/uL (1.8-7.7) Lymphocytes # (Auto) 1.2 x10^3/uL (1.0-4.8) Monocytes # (Auto) 0.5 x10^3/uL (0.0-1.1) Eosinophils # (Auto) 0.1 x10^3/uL (0.0-0.7) Basophils # (Auto) 0.0 x10^3/uL (0.0-0.2) Heparin Anti-Xa Act, Unfractionated 0.12 IU/mL (0.30-0.70) Sodium Level 144 mmol/L (136-145) Potassium Level 3.6 mmol/L (3.5-5.1) Chloride Level 109 mmol/L (98-107) Carbon Dioxide Level 27 mmol/L (21-32) Anion Gap 8 (6-14) Blood Urea Nitrogen 73 mg/dL (7-20) Creatinine 2.3 mg/dL (0.6-1.0) Estimated GFR (Cockcroft-Gault) 20.1 Glucose Level 179 mg/dL (70-99) Calcium Level 8.0 mg/dL (8.5-10.1) Magnesium Level 2.2 mg/dL (1.8-2.4) Test 04/11/19 08:01 Glucose (Fingerstick) 111 mg/dL (70-99) Results All relevant outside records, renal labs, imaging studies, telemetry/EKG's were reviewed. MAGALY STANLEY MD Apr 11, 2019 10:56
[2019-04-11 11:00] VITALS: BP 162/73
[2019-04-11 11:22] LABS: BILIRUBIN,URINE NEGATIVE (NEG); CLARITY,URINE TURBID; COLOR,URINE YELLOW; NITRITE,URINE NEGATIVE (NEG); PH,URINE 7.5; PROTEIN,URINE 100 mg/dL (NEG-TRACE); UROBILINOGEN,URINE 0.2 mg/dL (0.2 mg/dL)
[2019-04-11 11:27] LABS: BACTERIA,URINE MANY /HPF (0-FEW); WBC,URINE 20-40 /HPF (0-4)
[2019-04-11] MEDS: ANTI-COAG MONITOR BY PHARMACY. MC PRN (13:31)
--- NOTE | 2019-04-11 14:08 | PDOC ---
LEVAR ELLIOTT LAMP TESTER AND INSPECTOR 04/11/19 1408: CARDIO Progress Notes Date and Time Date of Service 04/11/19 Subjective Subjective: No Chest Pain, No shortness of breath, No Palpitations Vitals Vitals Vital Signs Date Time Temp Pulse Resp B/P (MAP) Pulse Ox O2 Delivery O2 Flow Rate FiO2 04/11/19 12:06 97 Nasal Cannula 3.0 04/11/19 11:00 98.1 70 16 162/73 (102) 98.1 Weight Weight [ ] Input and Output Intake and Output l Intake and Output 04/11/19 07:00 Intake Total 920 ml Output Total 250 ml Balance 670 ml Intake Oral 920 ml Stool Total 250 ml # Voids 7 Laboratory Labs Laboratory Tests Test 04/10/19 16:58 04/10/19 21:07 04/11/19 05:00 04/11/19 08:01 Glucose (Fingerstick) 107 mg/dL (70-99) 226 mg/dL (70-99) 111 mg/dL (70-99) White Blood Count 5.1 x10^3/uL (4.0-11.0) Red Blood Count 2.64 x10^6/uL (3.50-5.40) Hemoglobin 7.9 g/dL (12.0-15.5) Hematocrit 23.1 % (36.0-47.0) Mean Corpuscular Volume 87 fL (79-100) Mean Corpuscular Hemoglobin 30 pg (25-35) Mean Corpuscular Hemoglobin Concent 34 g/dL (31-37) Red Cell Distribution Width 13.4 % (11.5-14.5) Platelet Count 110 x10^3/uL (140-400) Neutrophils (%) (Auto) 66 % (31-73) Lymphocytes (%) (Auto) 22 % (24-48) Monocytes (%) (Auto) 9 % (0-9) Eosinophils (%) (Auto) 2 % (0-3) Basophils (%) (Auto) 1 % (0-3) Neutrophils # (Auto) 3.4 x10^3/uL (1.8-7.7) Lymphocytes # (Auto) 1.2 x10^3/uL (1.0-4.8) Monocytes # (Auto) 0.5 x10^3/uL (0.0-1.1) Eosinophils # (Auto) 0.1 x10^3/uL (0.0-0.7) Basophils # (Auto) 0.0 x10^3/uL (0.0-0.2) Heparin Anti-Xa Act, Unfractionated 0.12 IU/mL (0.30-0.70) Sodium Level 144 mmol/L (136-145) Potassium Level 3.6 mmol/L (3.5-5.1) Chloride Level 109 mmol/L (98-107) Carbon Dioxide Level 27 mmol/L (21-32) Anion Gap 8 (6-14) Blood Urea Nitrogen 73 mg/dL (7-20) Creatinine 2.3 mg/dL (0.6-1.0) Estimated GFR (Cockcroft-Gault) 20.1 Glucose Level 179 mg/dL (70-99) Calcium Level 8.0 mg/dL (8.5-10.1) Magnesium Level 2.2 mg/dL (1.8-2.4) Test 04/11/19 11:05 04/11/19 11:49 Urine Collection Type Unknown Urine Color Yellow Urine Clarity Turbid Urine pH 7.5 Urine Specific [place] 1.010 Urine Protein 100 mg/dL (NEG-TRACE) Urine Glucose (UA) Negative mg/dL (NEG) Urine Ketones (Stick) Negative mg/dL (NEG) Urine Blood Small (NEG) Urine Nitrite Negative (NEG) Urine Bilirubin Negative (NEG) Urine Urobilinogen Dipstick 0.2 mg/dL (0.2 mg/dL) Urine Leukocyte Esterase Large (NEG) Urine RBC 3-5 /HPF (0-2) Urine WBC 20-40 /HPF (0-4) Urine Bacteria Many /HPF (0-FEW) Glucose (Fingerstick) 99 mg/dL (70-99) Physical Exam HEENT: Neck Supple W Full Motion Chest: Symmetric LUNGS: Clear to Auscultation Heart: S1S2, RRR Abdomen: Soft N/T Extremities: No Edema Neurology: alert, oriented, follow commands Assessment Assessment 1. NSTEMI 2. CAD/3VD and ICM; managed medically as patient/family has declined high- risk intervention multiple times in the past, but now considering. R/b/a thoroughly discussed by myself and primary hand mounter including high-risk nature of intervention and risk for ROSENDO requiring potential half-way HD. To make decision today. 3. Acute on chronic systolic CHF; Echo showed LVEF 30-35%. Better compensated 3. Accelerated HTN; better controlled 4. Hyperlipidemia; statin 5. Diabetes, II; as per PCP 6. IGOR on CKD: Cr stable at 2.3 Recommendations Convert diuretic to oral. Discontinue heparin drip. Continue ASA/Plavix Secondary prevention, medical management with DAPT, statin, BB, ACEi, and Imdur Supportive care GERI ANGULO MD 04/11/192056: CARDIO Progress Notes Assessment Assessment Patient seen and examined. Agree with ELECTRIC MOTOR CONTROL ASSEMBLER's assessment and plan. Ac on chronic systolic HF better compensated Patient and family decided to pursue conservative medical management for CAD/NSTEMI. I think it is very reasonable considering her comorbidities LEVAR ELLIOTT APRN Apr 11, 2019 14:08 GERI ANGULO MD Apr 11, 2019 20:57
[2019-04-11 15:00] VITALS: BP 139/63
[2019-04-11] MEDS: cefTRIAXone IV Push 1 GM VIAL. IVP SCH (17:16)
[2019-04-11] MEDS: POLYETHYLENE GLYCOL 3350 17 GM PACKET. PO PRN (17:17)
[2019-04-11 19:39] VITALS: BP 153/67
[2019-04-11] MEDS: ATORVASTATIN CALCIUM 20 MG TABLET PO SCH (20:46)
[2019-04-11] MEDS: INSULIN GLARGINE SYRINGE. SQ SCH (20:54)
[2019-04-11 22:58] VITALS: BP 157/70
[2019-04-12 02:15] VITALS: BP 158/71
[2019-04-12 04:57] LABS: BASO % 1 % (0-3); EOS # 0.1 x10^3/uL (0.0-0.7); EOS % 3 % (0-3); HEMATOCRIT 24.8 % (36.0-47.0); HEMOGLOBIN 8.4 g/dL (12.0-15.5); LYMPH # 0.8 x10^3/uL (1.0-4.8); LYMPH % 15 % (24-48); MEAN CORPUSCULAR HEMOGLOBIN 30 pg (25-35); MEAN CORPUSCULAR HGB CONC 34 g/dL (31-37); MEAN CORPUSCULAR VOLUME 88 fL (79-100); MONO # 0.5 x10^3/uL (0.0-1.1); MONO % 10 % (0-9); NEUT # 3.9 x10^3/uL (1.8-7.7); NEUT % 73 % (31-73); PLATELET COUNT 126 x10^3/uL (140-400); RED BLOOD COUNT 2.84 x10^6/uL (3.50-5.40); RED CELL DISTRIBUTION WIDTH 13.4 % (11.5-14.5); WHITE BLOOD COUNT 5.4 x10^3/uL (4.0-11.0)
[2019-04-12 05:26] LABS: CALCIUM 8.4 mg/dL (8.5-10.1); CREATININE 2.2 mg/dL (0.6-1.0); GFR 21.2; POTASSIUM 3.9 mmol/L (3.5-5.1)
[2019-04-12] MEDS ORDERED: LEVOTHYROXINE 50 MCG TABLET PO SCH (06:00)
[2019-04-12 07:00] VITALS: BP 162/74
[2019-04-12] MEDS ORDERED: LEVOTHYROXINE 100 MCG TABLET PO SCH (07:00)
[2019-04-12] MEDS: LEVOTHYROXINE 50 MCG TABLET PO SCH (07:04)
[2019-04-12] MEDS: INSULIN LISPRO 300 UNITS/3 ML VIAL. SQ SCH ×6 (08:00→17:00)
[2019-04-12] MEDS: BUMETANIDE 1 MG TABLET. PO SCH (08:48)
[2019-04-12] MEDS: FERROUS SULFATE 325 MG TABLET. PO SCH (08:48)
[2019-04-12] MEDS: PREGABALIN 50 MG CAPSULE PO SCH ×2 (08:48→21:23)
[2019-04-12] MEDS: CLOPIDOGREL BISULFATE 75 MG TABLET PO SCH (08:48)
[2019-04-12] MEDS: LOSARTAN POTASSIUM 50 MG TABLET. PO SCH (08:49)
[2019-04-12] MEDS: DOCUSATE SODIUM 100 MG CAPSULE. PO SCH (08:49)
[2019-04-12] MEDS: ASPIRIN ENTERIC COATED 81 MG TABLET.DR. PO SCH (08:49)
[2019-04-12] MEDS: POLYETHYLENE GLYCOL 3350 17 GM PACKET. PO PRN (08:49)
[2019-04-12] MEDS: ISOSORBIDE MONONITRATE ER 30 MG TAB.ER.24H PO SCH (08:49)
[2019-04-12] MEDS: CARVEDILOL 12.5 MG TABLET. PO SCH ×2 (08:49→17:26)
[2019-04-12] MEDS: CALCIUM CARB/VIT D3 500/200 TABLET. PO SCH (08:49)
[2019-04-12] MEDS: DICLOFENAC SODIUM 1% TOPICAL GEL 100GM TUBE. TP SCH ×4 (09:00→21:00)
--- NOTE | 2019-04-12 09:09 | PDOC ---
SUBJECTIVE ROS Stable , On o2 by NC, NAD OBJECTIVE Vital Signs Vital Signs Date Time Temp Pulse Resp B/P (MAP) Pulse Ox O2 Delivery O2 Flow Rate FiO2 04/12/19 08:49 72 162/74 04/12/19 07:00 98.4 16 95 Nasal Cannula 2.0 98.4 I & 0 Intake and Output 04/12/19 06:59 Intake Total 200 ml Output Total 725 ml Balance -525 ml Intake Oral 200 ml Output Urine Total 725 ml PHYSICAL EXAM Physical Exam GEN: NAD HEENT: patient is blind in the left eye, On o2 by NC NECK: Supple. CARDIOVASCULAR: S1, S2. No murmurs. LUNGS: CTA, Non labored ABDOMEN: Soft, bowel sounds present No Simpson, No CVA or SP tenderness EXTREMITIES: no edema. 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 Didn't keep follow up appt with renal as OP in December -Pt 's family informed us that she decided to go on Hospice Follow up with renal as OP post dc- routine Malignant HTN - Stable currently Recurrent UTI- per primary Anemia - stable HTN: Adrenals Normal on CT Renal Duplex in 2016- No e/o significant ALVARADO Non-ST elevation myocardial infarction managed medically as patient/family has declined high-risk intervention multiple times in the past Family wants to continue conservative management Acute on chronic systolic CHF; Echo showed LVEF 30-35% Ca5rd managing, switched to PO diuretics CAD / 3 V Deon pleural effusion- Thoracentesis in the past On PO Diuretics DM2 COMMENT/RELEVANT DATA Meds Current Medications Medications (Trade) Dose Ordered Sig/Kyle Start Time Stop Time Status Last Admin Dose Admin Acetaminophen (Tylenol) 650 mg PRN Q4HRS PRN 04/09/19 05:30 04/10/19 05:29 DC Acetaminophen/ Codeine Phosphate (Tylenol #3) 1 tab PRN Q12HR PRN 04/09/19 10:30 04/10/19 21:39 1 TAB Albuterol/ Ipratropium (Duoneb) 3 ml TID 04/09/19 14:00 04/11/19 20:11 3 ML Amlodipine Besylate (Norvasc) 10 mg 1X ONCE 04/09/19 10:30 04/09/19 10:31 DC 04/09/19 10:23 10 MG Aspirin (Children'S Aspirin) 324 mg 1X ONCE 04/09/19 05:15 04/09/19 05:50 DC 04/09/19 05:47 324 MG Aspirin (Ecotrin) 81 mg DAILYWBKFT 04/10/19 08:00 04/12/19 08:49 81 MG Atorvastatin Calcium (Lipitor) 20 mg QHS 04/09/19 21:00 04/11/19 20:46 20 MG Bumetanide (Bumex) 1 mg DAILY 04/12/19 09:00 04/12/19 08:48 1 MG Calcium/Vitamin D (Oscal D 500mg/ 200uts) 1 tab DAILY 04/09/19 11:00 04/12/19 08:49 1 TAB Carvedilol (Coreg) 25 mg BIDWMEALS 04/10/19 17:00 04/12/19 08:49 25 MG Ceftriaxone Sodium (Rocephin) 1 gm Q24H 04/11/19 17:00 04/11/19 17:16 1 GM Clopidogrel Bisulfate (Plavix) 75 mg DAILY 04/10/19 09:00 UNV Dextrose (Dextrose 50%-Water Syringe) 12.5 gm PRN Q15MIN PRN 04/09/19 11:45 Diclofenac Sodium (Voltaren) 1 opal QID 04/09/19 13:00 04/11/19 20:46 1 OPAL Docusate Sodium (Colace) 100 mg DAILY 04/09/19 11:00 04/12/19 08:49 100 MG Famotidine (Pepcid) 20 mg PRN DAILY PRN 04/09/19 21:00 Fentanyl Citrate (Fentanyl 2ml Vial) 50 mcg PRN Q1HR PRN 04/09/19 05:30 04/10/19 05:29 DC Ferrous Sulfate (Feosol) 325 mg DAILY 04/09/19 11:00 04/12/19 08:48 325 MG Furosemide (Lasix) 40 mg DAILY 04/10/19 09:00 04/11/19 15:58 DC 04/11/19 09:03 40 MG Heparin Sodium (Porcine) (Heparin Sodium) 3,900 unit 1X ONCE 04/09/19 06:00 04/09/19 06:01 DC 04/09/19 06:11 3,900 UNIT Heparin Sodium/ Dextrose 500 ml @ 0 mls/hr CONT PRN 04/09/19 06:00 04/11/19 15:51 DC 04/10/19 18:42 15.6 MLS/HR Influenza Virus Vaccine Quadrival (Afluria Quad 2019-20 (3yr Up) Syringe) 0.5 ml ONCE ONCE 04/10/19 09:15 04/10/19 09:17 DC 04/11/19 17:21 0.5 ML Info (Anti-Coagulation Monitoring By Pharmacy) 1 each PRN DAILY PRN 04/09/19 10:15 04/11/19 13:31 1 EACH Insulin Glargine (Lantus Syringe) 15 unit HS 04/11/19 21:00 04/11/19 20:54 15 UNIT Insulin Human Lispro (HumaLOG) 5 units TIDWMEALS 04/11/19 12:00 04/12/19 09:01 5 UNITS Isosorbide Mononitrate (Imdur) 30 mg DAILY 04/09/19 11:00 04/12/19 08:49 30 MG Levothyroxine Sodium (Synthroid) 50 mcg QFR@0600 04/12/19 06:00 04/12/19 07:04 50 MCG Losartan Potassium (Cozaar) 100 mg DAILY 04/09/19 11:00 04/12/19 08:49 100 MG Meropenem (Merrem) 500 mg BID 04/09/19 21:00 UNV Nitroglycerin (Nitro-Bid Oint) 1 inch 1X ONCE 04/09/19 05:30 04/09/19 05:51 DC 04/09/19 05:47 1 INCH Non-Formulary Medication (Bumetanide ) 0.5 mg BID 04/09/19 21:00 UNV Ondansetron HCl (Zofran) 4 mg PRN Q8HRS PRN 04/09/19 05:30 04/10/19 05:29 DC Polyethylene Glycol (miraLAX PACKET) 17 gm PRN DAILY PRN 04/11/19 16:45 04/12/19 08:49 17 GM Pregabalin (Lyrica) 50 mg BID 04/09/19 11:00 04/12/19 08:48 50 MG Sodium Chloride 500 ml @ 500 mls/hr 1X ONCE 04/09/19 05:45 04/09/19 06:44 UNV Lab Laboratory Tests Test 04/11/19 11:05 04/11/19 11:49 04/11/19 13:25 04/11/19 17:07 Urine Collection Type Unknown Urine Color Yellow Urine Clarity Turbid Urine pH 7.5 Urine Specific [place] 1.010 Urine Protein 100 mg/dL (NEG-TRACE) Urine Glucose (UA) Negative mg/dL (NEG) Urine Ketones (Stick) Negative mg/dL (NEG) Urine Blood Small (NEG) Urine Nitrite Negative (NEG) Urine Bilirubin Negative (NEG) Urine Urobilinogen Dipstick 0.2 mg/dL (0.2 mg/dL) Urine Leukocyte Esterase Large (NEG) Urine RBC 3-5 /HPF (0-2) Urine WBC 20-40 /HPF (0-4) Urine Bacteria Many /HPF (0-FEW) Glucose (Fingerstick) 99 mg/dL (70-99) 93 mg/dL (70-99) Heparin Anti-Xa Act, Unfractionated 0.53 IU/mL (0.30-0.70) Test 04/11/19 20:34 04/12/19 04:30 04/12/19 07:25 Glucose (Fingerstick) 233 mg/dL (70-99) 100 mg/dL (70-99) White Blood Count 5.4 x10^3/uL (4.0-11.0) Red Blood Count 2.84 x10^6/uL (3.50-5.40) Hemoglobin 8.4 g/dL (12.0-15.5) Hematocrit 24.8 % (36.0-47.0) Mean Corpuscular Volume 88 fL (79-100) Mean Corpuscular Hemoglobin 30 pg (25-35) Mean Corpuscular Hemoglobin Concent 34 g/dL (31-37) Red Cell Distribution Width 13.4 % (11.5-14.5) Platelet Count 126 x10^3/uL (140-400) Neutrophils (%) (Auto) 73 % (31-73) Lymphocytes (%) (Auto) 15 % (24-48) Monocytes (%) (Auto) 10 % (0-9) Eosinophils (%) (Auto) 3 % (0-3) Basophils (%) (Auto) 1 % (0-3) Neutrophils # (Auto) 3.9 x10^3/uL (1.8-7.7) Lymphocytes # (Auto) 0.8 x10^3/uL (1.0-4.8) Monocytes # (Auto) 0.5 x10^3/uL (0.0-1.1) Eosinophils # (Auto) 0.1 x10^3/uL (0.0-0.7) Basophils # (Auto) 0.0 x10^3/uL (0.0-0.2) Sodium Level 142 mmol/L (136-145) Potassium Level 3.9 mmol/L (3.5-5.1) Chloride Level 106 mmol/L (98-107) Carbon Dioxide Level 26 mmol/L (21-32) Anion Gap 10 (6-14) Blood Urea Nitrogen 74 mg/dL (7-20) Creatinine 2.2 mg/dL (0.6-1.0) Estimated GFR (Cockcroft-Gault) 21.2 Glucose Level 165 mg/dL (70-99) Calcium Level 8.4 mg/dL (8.5-10.1) Results All relevant outside records, renal labs, imaging studies, telemetry/EKG's were reviewed. MAGALY STANLEY MD Apr 12, 2019 09:09
[2019-04-12] MEDS: IPRATRPIUM/ALBUTEROL 0.5/2.5MG 3 ML NEBU. NEB SCH ×3 (09:13→20:37)
--- NOTE | 2019-04-12 10:07 | PDOC ---
PROGRESS NOTES Subjective Subjective pt refused cardiac cath and possible dialysis Objective Objective Vital Signs Date Time Temp Pulse Resp B/P (MAP) Pulse Ox O2 Delivery O2 Flow Rate FiO2 04/12/19 09:15 94 Nasal Cannula 2.0 04/12/19 08:49 72 162/74 04/12/19 07:00 98.4 16 98.4 Intake and Output 04/12/19 06:59 Intake Total 200 ml Output Total 725 ml Balance -525 ml Intake Oral 200 ml Output Urine Total 725 ml Physical Exam Abdomen: Normal bowel sounds, No tenderness Heart: Regular rate Extremities: No clubbing General: Alert, Cooperative, No acute distress HEENT: Atraumatic Lungs: Other (DECREASED AT BASES) MUSCULOSKELETAL: No joint tenderness, No deformity Neuro: Normal speech Psych/Mental Status: Mental status NL Skin: No breakdown Diagnosis Problem List Problems Medical Problems: (1) NSTEMI (non-ST elevated myocardial infarction) Status: Acute Assessment Assessment Problems Medical Problems: (1) NSTEMI (non-ST elevated myocardial infarction) Status: Acute FINAL IMPRESSION:UTI-gram neg (POA) 1. Non-ST elevation myocardial infarction. 2. Congestive heart failure, [id number], systolic. 3. Known 3-vessel disease, coronary artery disease. 4. Hypertension. 5. Hyperlipidemia. 6. 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 7. Insulin-dependent diabetes. 8. Recurrent urinary tract infections. 9. Hypothyroidism. PLAN: IV Rocephin. Renal consult appreciated. pt refused cath/stent placement /impalla. cr 2.3 worse, troponin trending up 39 today pt/ot/ cxr jacki pleural effusion. iv lasix for now. d/c home monday. At this time was to admit to hospital. The patient refused cardiac intervention at this time. Continue medical treatment with nitroglycerin and heparin. Monitor kidney function. Also check for urinary tract infection, she gets frequent UTIs. Plan Plan of Care Problems Medical Problems: (1) NSTEMI (non-ST elevated myocardial infarction) Status: Acute Comment Review of Relevant I have reviewed the following items kathleen (where applicable) has been applied. Labs Laboratory Tests Test 04/11/19 11:05 04/11/19 11:49 04/11/19 13:25 04/11/19 17:07 Urine Collection Type Unknown Urine Color Yellow Urine Clarity Turbid Urine pH 7.5 Urine Specific [place] 1.010 Urine Protein 100 mg/dL (NEG-TRACE) Urine Glucose (UA) Negative mg/dL (NEG) Urine Ketones (Stick) Negative mg/dL (NEG) Urine Blood Small (NEG) Urine Nitrite Negative (NEG) Urine Bilirubin Negative (NEG) Urine Urobilinogen Dipstick 0.2 mg/dL (0.2 mg/dL) Urine Leukocyte Esterase Large (NEG) Urine RBC 3-5 /HPF (0-2) Urine WBC 20-40 /HPF (0-4) Urine Bacteria Many /HPF (0-FEW) Glucose (Fingerstick) 99 mg/dL (70-99) 93 mg/dL (70-99) Heparin Anti-Xa Act, Unfractionated 0.53 IU/mL (0.30-0.70) Test 04/11/19 20:34 04/12/19 04:30 04/12/19 07:25 Glucose (Fingerstick) 233 mg/dL (70-99) 100 mg/dL (70-99) White Blood Count 5.4 x10^3/uL (4.0-11.0) Red Blood Count 2.84 x10^6/uL (3.50-5.40) Hemoglobin 8.4 g/dL (12.0-15.5) Hematocrit 24.8 % (36.0-47.0) Mean Corpuscular Volume 88 fL (79-100) Mean Corpuscular Hemoglobin 30 pg (25-35) Mean Corpuscular Hemoglobin Concent 34 g/dL (31-37) Red Cell Distribution Width 13.4 % (11.5-14.5) Platelet Count 126 x10^3/uL (140-400) Neutrophils (%) (Auto) 73 % (31-73) Lymphocytes (%) (Auto) 15 % (24-48) Monocytes (%) (Auto) 10 % (0-9) Eosinophils (%) (Auto) 3 % (0-3) Basophils (%) (Auto) 1 % (0-3) Neutrophils # (Auto) 3.9 x10^3/uL (1.8-7.7) Lymphocytes # (Auto) 0.8 x10^3/uL (1.0-4.8) Monocytes # (Auto) 0.5 x10^3/uL (0.0-1.1) Eosinophils # (Auto) 0.1 x10^3/uL (0.0-0.7) Basophils # (Auto) 0.0 x10^3/uL (0.0-0.2) Sodium Level 142 mmol/L (136-145) Potassium Level 3.9 mmol/L (3.5-5.1) Chloride Level 106 mmol/L (98-107) Carbon Dioxide Level 26 mmol/L (21-32) Anion Gap 10 (6-14) Blood Urea Nitrogen 74 mg/dL (7-20) Creatinine 2.2 mg/dL (0.6-1.0) Estimated GFR (Cockcroft-Gault) 21.2 Glucose Level 165 mg/dL (70-99) Calcium Level 8.4 mg/dL (8.5-10.1) Microbiology 04/09/19 Urine Culture - Preliminary, Resulted 04/09/19 Urine Culture Result 1 (AMADOU) - Preliminary, Resulted Medications Current Medications Bumetanide (Bumex) 1 mg DAILY PO Last administered on 04/12/19at 08:48; Start 04/12/19 at 09:00 Ceftriaxone Sodium (Rocephin) 1 gm Q24H IVP Last administered on 04/11/19at 17:16; Start 04/11/19 at 17:00 Insulin Glargine (Lantus Syringe) 15 unit HS SQ Last administered on 04/11/19at 20:54; Start 04/11/19 at 21:00 Insulin Human Lispro (HumaLOG) 5 units TIDWMEALS SQ Last administered on 04/12/19at 09:01; Start 04/11/19 at 12:00 Levothyroxine Sodium (Synthroid) 50 mcg QFR@0600 PO Last administered on 04/12/19at 07:04; Start 04/12/19 at 06:00 Levothyroxine Sodium (Synthroid) 100 mcg QFR@0700 PO ; Start 04/12/19 at 07:00; Status Cancel Polyethylene Glycol (miraLAX PACKET) 17 gm PRN DAILY PRN PO CONSTIPATION Last administered on 04/12/19at 08:49; Start 04/11/19 at 16:45 Vitals/I & O Vital Sign - Last 24 Hours 04/11/19 04/11/19 04/11/1910/19 11:00 12:06 15:00 17:16 Temp 98.1 97.6 98.1 97.6 Pulse 70 63 63 Resp 16 16 B/P (MAP) 162/73 (102) 139/63 (88) 139/63 Pulse Ox 95 97 97 O2 Delivery Room Air Nasal Cannula O2 Flow Rate 3.0 2.0 04/11/19 04/11/19 04/11/19 04/11/19 19:39 20:00 20:12 22:58 Temp 97.8 98.3 97.8 98.3 Pulse 66 66 Resp 16 16 B/P (MAP) 153/67 (95) 157/70 (99) Pulse Ox 97 98 97 O2 Delivery Nasal Cannula Nasal Cannula Nasal Cannula Nasal Cannula O2 Flow Rate 3.0 3.0 3.0 2.0 04/12/19 04/12/19 04/12/19 04/12/19 02:15 07:00 08:49 08:49 Temp 98.5 98.4 98.5 98.4 Pulse 72 72 72 72 Resp 18 16 B/P (MAP) 158/71 (100) 162/74 (103) 162/74 162/74 Pulse Ox 96 95 O2 Delivery Nasal Cannula Nasal Cannula O2 Flow Rate 2.0 2.0 04/12/19 04/12/19 08:49 09:15 Pulse 72 B/P (MAP) 162/74 Pulse Ox 94 O2 Delivery Nasal Cannula O2 Flow Rate 2.0 Intake and Output 04/11/19 04/11/19 04/12/19 14:59 22:59 06:59 Intake Total 200 ml Output Total 300 ml 350 ml 75 ml Balance -300 ml -350 ml 125 ml JAMES CORCORAN MD Apr 12, 2019 10:07
[2019-04-12 11:00] VITALS: BP 161/68
[2019-04-12] MEDS: ACETAMINOPHEN/CODEINE 300/30MG TABLET. PO PRN (12:38)
--- NOTE | 2019-04-12 13:28 | RAD ---
EXAM: Chest, 2 views. HISTORY: Congestive heart failure. COMPARISON: 04/10/2019 FINDINGS: 2 views of the chest are obtained. There has been interval decrease in a now moderate left pleural effusion and there is a stable moderate right pleural effusion. There is stable diffuse interstitial infiltrate due to congestion. There is stable cardiomegaly. There is no pneumothorax. IMPRESSION: 1. Decreased left and stable right moderate pleural effusions. There may be superimposed bilateral lower lobe and right middle lobe partial collapse or consolidation. 2. Stable diffuse interstitial infiltrate due to congestion. 3. Cardiomegaly. Electronically signed by: Elaina Aaron MD (04/12/2019 1:25 PM) [place] [id number]
[2019-04-12 15:00] VITALS: BP 143/65
--- NOTE | 2019-04-12 15:21 | NUR ---
SS following up with discharge planning. PT recommended home with home healthcare. SS will continue to follow for discharge planning.
--- NOTE | 2019-04-12 15:58 | PDOC ---
PROGRESS NOTES Subjective Subjective Denied any chest pain. Dyspnea improved. Objective Objective Vital Signs Date Time Temp Pulse Resp B/P (MAP) Pulse Ox O2 Delivery O2 Flow Rate FiO2 04/12/19 15:00 97.6 65 16 143/65 (91) 98 Nasal Cannula 2.0 97.6 Intake and Output 04/12/19 06:59 Intake Total 200 ml Output Total 725 ml Balance -525 ml Intake Oral 200 ml Output Urine Total 725 ml Physical Exam Abdomen: Normal bowel sounds, No tenderness Heart: Regular rate Extremities: No clubbing General: Alert, Cooperative, No acute distress HEENT: Atraumatic Lungs: Other (DECREASED AT BASES) MUSCULOSKELETAL: No joint tenderness, No deformity Neuro: Normal speech Psych/Mental Status: Mental status NL Skin: No breakdown Assessment Assessment 1. NSTEMI, CAD/3VD and ICM; continue conservative medical management per patient and families wishes. She is presently chest pain-free. 2. Acute on chronic systolic CHF; Echo showed LVEF 30-35%. Better compensated. Continue current medical regimen. 3. Accelerated HTN; better controlled 4. Hyperlipidemia; statin 5. Diabetes, II; as per PCP 6. IGOR on CKD: Plan Plan of Care Problems Medical Problems: (1) NSTEMI (non-ST elevated myocardial infarction) Status: Acute Comment Review of Relevant I have reviewed the following items kathleen (where applicable) has been applied. Labs Laboratory Tests Test 04/11/19 17:07 04/11/19 20:34 04/12/19 04:30 04/12/19 07:25 Glucose (Fingerstick) 93 mg/dL (70-99) 233 mg/dL (70-99) 100 mg/dL (70-99) White Blood Count 5.4 x10^3/uL (4.0-11.0) Red Blood Count 2.84 x10^6/uL (3.50-5.40) Hemoglobin 8.4 g/dL (12.0-15.5) Hematocrit 24.8 % (36.0-47.0) Mean Corpuscular Volume 88 fL (79-100) Mean Corpuscular Hemoglobin 30 pg (25-35) Mean Corpuscular Hemoglobin Concent 34 g/dL (31-37) Red Cell Distribution Width 13.4 % (11.5-14.5) Platelet Count 126 x10^3/uL (140-400) Neutrophils (%) (Auto) 73 % (31-73) Lymphocytes (%) (Auto) 15 % (24-48) Monocytes (%) (Auto) 10 % (0-9) Eosinophils (%) (Auto) 3 % (0-3) Basophils (%) (Auto) 1 % (0-3) Neutrophils # (Auto) 3.9 x10^3/uL (1.8-7.7) Lymphocytes # (Auto) 0.8 x10^3/uL (1.0-4.8) Monocytes # (Auto) 0.5 x10^3/uL (0.0-1.1) Eosinophils # (Auto) 0.1 x10^3/uL (0.0-0.7) Basophils # (Auto) 0.0 x10^3/uL (0.0-0.2) Sodium Level 142 mmol/L (136-145) Potassium Level 3.9 mmol/L (3.5-5.1) Chloride Level 106 mmol/L (98-107) Carbon Dioxide Level 26 mmol/L (21-32) Anion Gap 10 (6-14) Blood Urea Nitrogen 74 mg/dL (7-20) Creatinine 2.2 mg/dL (0.6-1.0) Estimated GFR (Cockcroft-Gault) 21.2 Glucose Level 165 mg/dL (70-99) Calcium Level 8.4 mg/dL (8.5-10.1) Test 04/12/19 12:22 Glucose (Fingerstick) 115 mg/dL (70-99) Microbiology 04/09/19 Urine Culture - Preliminary, Resulted 04/09/19 Urine Culture Result 1 (AMADOU) - Preliminary, Resulted Medications Current Medications Bumetanide (Bumex) 1 mg DAILY PO Last administered on 04/12/19at 08:48; Start 04/12/19 at 09:00 Ceftriaxone Sodium (Rocephin) 1 gm Q24H IVP Last administered on 04/11/19at 17: 16; Start 04/11/19 at 17:00 Insulin Glargine (Lantus Syringe) 15 unit HS SQ Last administered on 04/11/19at 20:54; Start 04/11/19 at 21:00 Lactobacillus Rhamnosus (Culturelle) 1 cap BID PO ; Start 04/12/19 at 21:00 Levothyroxine Sodium (Synthroid) 50 mcg QFR@0600 PO Last administered on 04/12/19at 07:04; Start 04/12/19 at 06:00 Levothyroxine Sodium (Synthroid) 100 mcg QFR@0700 PO ; Start 04/12/19 at 07:00; Status Cancel Polyethylene Glycol (miraLAX PACKET) 17 gm PRN DAILY PRN PO CONSTIPATION Last a dministered on 04/12/19at 08:49; Start 04/11/19 at 16:45 Vitals/I & O Vital Sign - Last 24 Hours 04/11/19 04/11/19 04/11/19 04/11/19 17:16 19:39 20:00 20:12 Temp 97.8 97.8 Pulse 63 66 Resp 16 B/P (MAP) 139/63 153/67 (95) Pulse Ox 97 98 O2 Delivery Nasal Cannula Nasal Cannula Nasal Cannula O2 Flow Rate 3.0 3.0 3.0 04/11/19 04/12/19 04/12/19 04/12/19 22:58 02:15 07:00 08:00 Temp 98.3 98.5 98.4 98.3 98.5 98.4 Pulse 66 72 72 Resp 16 18 16 B/P (MAP) 157/70 (99) 158/71 (100) 162/74 (103) Pulse Ox 97 96 95 O2 Delivery Nasal Cannula Nasal Cannula Nasal Cannula Nasal Cannula O2 Flow Rate 2.0 2.0 2.0 3.0 04/12/19 04/12/19 04/12/19 04/12/19 08:49 08:49 08:49 09:15 Pulse 72 72 72 B/P (MAP) 162/74 162/74 162/74 Pulse Ox 94 O2 Delivery Nasal Cannula O2 Flow Rate 2.0 04/12/19 04/12/19 04/12/19 04/12/19 11:00 12:38 13:46 15:00 Temp 98.0 97.6 98.0 97.6 Pulse 78 65 Resp 16 18 16 16 B/P (MAP) 161/68 (99) 143/65 (91) Pulse Ox 95 98 O2 Delivery Nasal Cannula Room Air Nasal Cannula Nasal Cannula O2 Flow Rate 2.0 3.0 2.0 Intake and Output 04/11/19 04/11/19 04/12/19 14:59 22:59 06:59 Intake Total 200 ml Output Total 300 ml 350 ml 75 ml Balance -300 ml -350 ml 125 ml GERI ANGULO MD Apr 12, 2019 15:58
[2019-04-12] MEDS: cefTRIAXone IV Push 1 GM VIAL. IVP SCH (17:25)
[2019-04-12 19:12] VITALS: BP 163/77
[2019-04-12] MEDS: ATORVASTATIN CALCIUM 20 MG TABLET PO SCH (21:23)
[2019-04-12] MEDS: LACTOBACILLUS RHAMNOSUS GG 1 CAPSULE. PO SCH (21:23)
[2019-04-12] MEDS: INSULIN GLARGINE SYRINGE. SQ SCH (21:29)
[2019-04-12 23:14] VITALS: BP 150/73
[2019-04-13] MEDS: ACETAMINOPHEN/CODEINE 300/30MG TABLET. PO PRN (03:31)
[2019-04-13 03:59] VITALS: BP 167/77
[2019-04-13] MEDS ORDERED: BENZOCAINE/MENTHOL LOZENGE. PO PRN (05:00)
[2019-04-13] MEDS: LEVOTHYROXINE 50 MCG TABLET PO SCH (05:36)
[2019-04-13 07:00] VITALS: BP 161/72
[2019-04-13] MEDS: IPRATRPIUM/ALBUTEROL 0.5/2.5MG 3 ML NEBU. NEB SCH ×3 (07:38→20:08)
[2019-04-13 07:42] LABS: CALCIUM 8.5 mg/dL (8.5-10.1); CREATININE 2.1 mg/dL (0.6-1.0); GFR 22.3; POTASSIUM 4.8 mmol/L (3.5-5.1)
[2019-04-13] MEDS: ISOSORBIDE MONONITRATE ER 30 MG TAB.ER.24H PO SCH (08:33)
[2019-04-13] MEDS: ASPIRIN ENTERIC COATED 81 MG TABLET.DR. PO SCH (08:33)
[2019-04-13] MEDS: BUMETANIDE 1 MG TABLET. PO SCH (08:33)
[2019-04-13] MEDS: DOCUSATE SODIUM 100 MG CAPSULE. PO SCH (08:33)
[2019-04-13] MEDS: CLOPIDOGREL BISULFATE 75 MG TABLET PO SCH (08:33)
[2019-04-13] MEDS: PREGABALIN 50 MG CAPSULE PO SCH ×2 (08:40→20:32)
[2019-04-13] MEDS: CALCIUM CARB/VIT D3 500/200 TABLET. PO SCH (08:40)
[2019-04-13] MEDS: FERROUS SULFATE 325 MG TABLET. PO SCH (08:40)
[2019-04-13] MEDS: CARVEDILOL 12.5 MG TABLET. PO SCH ×2 (08:40→18:12)
[2019-04-13] MEDS: LOSARTAN POTASSIUM 50 MG TABLET. PO SCH (08:40)
[2019-04-13] MEDS: LACTOBACILLUS RHAMNOSUS GG 1 CAPSULE. PO SCH ×2 (08:40→20:31)
[2019-04-13] MEDS: DICLOFENAC SODIUM 1% TOPICAL GEL 100GM TUBE. TP SCH ×4 (09:00→20:33)
--- NOTE | 2019-04-13 09:02 | PDOC ---
IM PROGRESS NOTES- Subjective Subjective She has increased cough, congestion and dyspnea. Feeling worse. Objective Vitals/I&O Vital Signs Date Time Temp Pulse Resp B/P (MAP) Pulse Ox O2 Delivery O2 Flow Rate FiO2 04/13/19 08:40 80 04/13/19 07:39 94 Nasal Cannula 2.0 04/13/19 07:00 98.3 18 161/72 (101) 98.3 I & O 04/12/19 04/12/19 04/13/19 14:59 22:59 06:59 Intake Total 418 ml 200 ml Output Total 200 ml 350 ml Balance 218 ml -350 ml 200 ml Physical Exam Physical Exam General appearance - alert, chronically ill appearing, and in no distress and oriented to person, place, and time Mental Status - alert Head - normal Chest -bilateral rhonchi and mild dyspnea. Heart - S1 and S2 normal Abdomen - soft, nontender, nondistended, Neurological - alert and oriented Extremities -edema plus Skin - warm and dry Labs Laboratory Tests Test 04/12/19 12:22 04/12/19 17:16 04/12/19 20:41 04/13/19 07:00 Glucose (Fingerstick) 115 mg/dL (70-99) H 72 mg/dL (70-99) 253 mg/dL (70-99) H Sodium Level 140 mmol/L (136-145) Potassium Level 4.8 mmol/L (3.5-5.1) Chloride Level 106 mmol/L (98-107) Carbon Dioxide Level 27 mmol/L (21-32) Anion Gap 7 (6-14) Blood Urea Nitrogen 73 mg/dL (7-20) H Creatinine 2.1 mg/dL (0.6-1.0) H Estimated GFR (Cockcroft-Gault) 22.3 Glucose Level 257 mg/dL (70-99) H Calcium Level 8.5 mg/dL (8.5-10.1) Test 04/13/19 07:54 Glucose (Fingerstick) 247 mg/dL (70-99) H Laboratory Tests 04/13/19 07:00 Meds Current Medications Medications (Trade) Dose Ordered Sig/Kyle Route PRN Reason Start Time Stop Time Status Last Admin Dose Admin Lactobacillus Rhamnosus (Culturelle) 1 cap BID PO 04/12/19 21:00 04/13/19 08:40 Throat Lozenges (Cepacol Sore Throat Lozenge) 1 isaias PRN Q2HRS PRN PO SORE THROAT 04/13/19 05:00 04/13/19 05:36 Assessment Assessment Problems Medical Problems: (1) NSTEMI (non-ST elevated myocardial infarction) Status: Acute FINAL IMPRESSION:UTI-gram neg (POA) 1. Non-ST elevation myocardial infarction. 2. Congestive heart failure, buvil-ti-yquwsvy, systolic. 3. Known 3-vessel disease, coronary artery disease. 4. Hypertension. 5. Hyperlipidemia. 6. 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 7. Insulin-dependent diabetes. 8. Recurrent urinary tract infections. 9. Hypothyroidism. PLAN: UTI- greater than 100 K gram-negative rods. Continue IV Rocephin. Renal insufficiency- BUN is 73 creatinine 2.1. pt refused cath/stent placement /impalla. pt/ot/ cxr jacki pleural effusion. iv lasix for now. Dyspnea-increase DuoNeb breathing treatment to 4 times a day. Solu-Medrol 40 mg IV 1. Condition treatment discussed with the patient and the daughter. Plan Plan For more details regarding further plans, please refer to the orders. XENA MALAGON MD Apr 13, 2019 09:02
[2019-04-13] MEDS: INSULIN LISPRO 300 UNITS/3 ML VIAL. SQ SCH ×6 (09:20→19:07)
[2019-04-13] MEDS ORDERED: methylPREDNISolone SOD SUCC PF 40 MG/ML VIAL. IV ONE (10:30)
[2019-04-13 11:18] VITALS: BP 171/79
--- NOTE | 2019-04-13 12:45 | PDOC ---
SUBJECTIVE ROS Follow-up for chronic kidney disease stage IV Patient and family deny new complaints OBJECTIVE Vital Signs Vital Signs Date Time Temp Pulse Resp B/P (MAP) Pulse Ox O2 Delivery O2 Flow Rate FiO2 04/13/19 11:18 98.1 70 16 171/79 (109) 96 Nasal Cannula 2.0 98.1 I & 0 Intake and Output 04/13/19 07:00 Intake Total 618 ml Output Total 550 ml Balance 68 ml Intake Oral 618 ml Output Urine Total 550 ml # Voids 2 PHYSICAL EXAM Physical Exam General Appearance: Awake: Alert Oriented x 2 Neck: No JVD or JVP Chest: CTA Deon Heart: S1 S2 Abdomen - Soft NTND Extremities - No Edema DIAGNOSIS/ASSESSMENT Assessment & Plan Chronic kidney disease stage IV: Creatinine has been stable between 2.1 and 2.3. No new recommendations at this time. We'll follow up on Monday COMMENT/RELEVANT DATA Meds Current Medications Medications (Trade) Dose Ordered Sig/Kyle Start Time Stop Time Status Last Admin Dose Admin Acetaminophen (Tylenol) 650 mg PRN Q4HRS PRN 04/09/19 05:30 04/10/19 05:29 DC Acetaminophen/ Codeine Phosphate (Tylenol #3) 1 tab PRN Q12HR PRN 04/09/19 10:30 04/13/19 03:31 1 TAB Albuterol/ Ipratropium (Duoneb) 3 ml TID 04/09/19 14:00 04/13/19 07:38 3 ML Amlodipine Besylate (Norvasc) 10 mg 1X ONCE 04/09/19 10:30 04/09/19 10:31 DC 04/09/19 10:23 10 MG Aspirin (Children'S Aspirin) 324 mg 1X ONCE 04/09/19 05:15 04/09/19 05:50 DC 04/09/19 05:47 324 MG Aspirin (Ecotrin) 81 mg DAILYWBKFT 04/10/19 08:00 04/13/19 08:33 81 MG Atorvastatin Calcium (Lipitor) 20 mg QHS 04/09/19 21:00 04/12/19 21:23 20 MG Bumetanide (Bumex) 1 mg DAILY 04/12/19 09:00 04/13/19 08:33 1 MG Calcium/Vitamin D (Oscal D 500mg/ 200uts) 1 tab DAILY 04/09/19 11:00 04/13/19 08:40 1 TAB Carvedilol (Coreg) 25 mg BIDWMEALS 04/10/19 17:00 04/13/19 08:40 25 MG Ceftriaxone Sodium (Rocephin) 1 gm Q24H 04/11/19 17:00 04/12/19 17:25 1 GM Clopidogrel Bisulfate (Plavix) 75 mg DAILY 04/10/19 09:00 UNV Dextrose (Dextrose 50%-Water Syringe) 12.5 gm PRN Q15MIN PRN 04/09/19 11:45 Diclofenac Sodium (Voltaren) 1 opal QID 04/09/19 13:00 04/12/19 12:36 1 OPAL Docusate Sodium (Colace) 100 mg DAILY 04/09/19 11:00 04/13/19 08:33 100 MG Famotidine (Pepcid) 20 mg PRN DAILY PRN 04/09/19 21:00 Fentanyl Citrate (Fentanyl 2ml Vial) 50 mcg PRN Q1HR PRN 04/09/19 05:30 04/10/19 05:29 DC Ferrous Sulfate (Feosol) 325 mg DAILY 04/09/19 11:00 04/13/19 08:40 325 MG Furosemide (Lasix) 40 mg DAILY 04/10/19 09:00 04/11/19 15:58 DC 04/11/19 09:03 40 MG Heparin Sodium (Porcine) (Heparin Sodium) 3,900 unit 1X ONCE 04/09/19 06:00 04/09/19 06:01 DC 04/09/19 06:11 3,900 UNIT Heparin Sodium/ Dextrose 500 ml @ 0 mls/hr CONT PRN 04/09/19 06:00 04/11/19 15:51 DC 04/10/19 18:42 15.6 MLS/HR Influenza Virus Vaccine Quadrival (Afluria Quad 2019-20 (3yr Up) Syringe) 0.5 ml ONCE ONCE 04/10/19 09:15 04/10/19 09:17 DC 04/11/19 17:21 0.5 ML Info (Anti-Coagulation Monitoring By Pharmacy) 1 each PRN DAILY PRN 04/09/19 10:15 04/12/19 15:29 DC 04/11/19 13:31 1 EACH Insulin Glargine (Lantus Syringe) 15 unit HS 04/11/19 21:00 04/12/19 21:29 15 UNIT Insulin Human Lispro (HumaLOG) 5 units TIDWMEALS 04/11/19 12:00 04/13/19 09:21 5 UNITS Isosorbide Mononitrate (Imdur) 30 mg DAILY 04/09/19 11:00 04/13/19 08:33 30 MG Lactobacillus Rhamnosus (Culturelle) 1 cap BID 04/12/19 21:00 04/13/19 08:40 1 CAP Levothyroxine Sodium (Synthroid) 50 mcg QFR@0600 04/12/19 06:00 04/12/19 07:04 50 MCG Losartan Potassium (Cozaar) 100 mg DAILY 04/09/19 11:00 04/13/19 08:40 100 MG Meropenem (Merrem) 500 mg BID 04/09/19 21:00 UNV Methylprednisolone Sodium Succinate (SOLU-Medrol 40MG VIAL) 40 mg 1X ONCE 04/13/19 10:30 04/13/19 10:31 DC 04/13/19 11:26 40 MG Nitroglycerin (Nitro-Bid Oint) 1 inch 1X ONCE 04/09/19 05:30 04/09/19 05:51 DC 04/09/19 05:47 1 INCH Non-Formulary Medication (Bumetanide ) 0.5 mg BID 04/09/19 21:00 UNV Ondansetron HCl (Zofran) 4 mg PRN Q8HRS PRN 04/09/19 05:30 04/10/19 05:29 DC Polyethylene Glycol (miraLAX PACKET) 17 gm PRN DAILY PRN 04/11/19 16:45 04/12/19 08:49 17 GM Pregabalin (Lyrica) 50 mg BID 04/09/19 11:00 04/13/19 08:40 50 MG Sodium Chloride 500 ml @ 500 mls/hr 1X ONCE 04/09/19 05:45 04/09/19 06:44 UNV Throat Lozenges (Cepacol Sore Throat Lozenge) 1 charlie PRN Q2HRS PRN 04/13/19 05:00 04/13/19 05:36 1 CHARLIE Lab Laboratory Tests Test 04/12/19 17:16 04/12/19 20:41 10/12/19 07:00 04/13/19 07:54 Glucose (Fingerstick) 72 mg/dL (70-99) 253 mg/dL (70-99) 247 mg/dL (70-99) Sodium Level 140 mmol/L (136-145) Potassium Level 4.8 mmol/L (3.5-5.1) Chloride Level 106 mmol/L (98-107) Carbon Dioxide Level 27 mmol/L (21-32) Anion Gap 7 (6-14) Blood Urea Nitrogen 73 mg/dL (7-20) Creatinine 2.1 mg/dL (0.6-1.0) Estimated GFR (Cockcroft-Gault) 22.3 Glucose Level 257 mg/dL (70-99) Calcium Level 8.5 mg/dL (8.5-10.1) Test 04/13/19 11:44 Glucose (Fingerstick) 169 mg/dL (70-99) Results All relevant outside records, renal labs, imaging studies, telemetry/EKG's were reviewed. RAMIN MALDONADO MD Apr 13, 2019 12:45
[2019-04-13 15:00] VITALS: BP 150/60
[2019-04-13] MEDS: cefTRIAXone IV Push 1 GM VIAL. IVP SCH (18:07)
[2019-04-13 19:35] VITALS: BP 175/71
[2019-04-13] MEDS: ATORVASTATIN CALCIUM 20 MG TABLET PO SCH (20:33)
[2019-04-13] MEDS: INSULIN GLARGINE SYRINGE. SQ SCH (20:33)
[2019-04-13 22:50] VITALS: BP 183/84
[2019-04-14 03:45] VITALS: BP 180/84
[2019-04-14] MEDS: LEVOTHYROXINE 50 MCG TABLET PO SCH (05:13)
[2019-04-14 07:00] VITALS: BP 163/70
[2019-04-14] MEDS: INSULIN LISPRO 300 UNITS/3 ML VIAL. SQ SCH ×6 (08:00→17:28)
[2019-04-14] MEDS: IPRATRPIUM/ALBUTEROL 0.5/2.5MG 3 ML NEBU. NEB SCH ×4 (08:00→20:09)
[2019-04-14] MEDS: BUMETANIDE 1 MG TABLET. PO SCH (08:56)
[2019-04-14] MEDS: FERROUS SULFATE 325 MG TABLET. PO SCH (08:56)
[2019-04-14] MEDS: LOSARTAN POTASSIUM 50 MG TABLET. PO SCH (08:57)
[2019-04-14] MEDS: PREGABALIN 50 MG CAPSULE PO SCH ×2 (08:57→20:42)
[2019-04-14] MEDS: ASPIRIN ENTERIC COATED 81 MG TABLET.DR. PO SCH (08:57)
[2019-04-14] MEDS: CALCIUM CARB/VIT D3 500/200 TABLET. PO SCH (08:58)
[2019-04-14] MEDS: LACTOBACILLUS RHAMNOSUS GG 1 CAPSULE. PO SCH ×2 (08:58→20:41)
[2019-04-14] MEDS: POLYETHYLENE GLYCOL 3350 17 GM PACKET. PO PRN (08:58)
[2019-04-14] MEDS: CARVEDILOL 12.5 MG TABLET. PO SCH ×2 (08:58→17:21)
[2019-04-14] MEDS: CLOPIDOGREL BISULFATE 75 MG TABLET PO SCH (08:58)
[2019-04-14] MEDS: DOCUSATE SODIUM 100 MG CAPSULE. PO SCH (08:58)
[2019-04-14] MEDS: ISOSORBIDE MONONITRATE ER 30 MG TAB.ER.24H PO SCH (08:58)
[2019-04-14] MEDS: DICLOFENAC SODIUM 1% TOPICAL GEL 100GM TUBE. TP SCH ×4 (09:00→21:00)
--- NOTE | 2019-04-14 10:11 | PDOC ---
IM PROGRESS NOTES- Subjective Subjective Complaints of abdominal pain, constipation, left-sided the anterior wall chest pain as well as pain in the left side of the chest and the back. No chest pains at this time. Objective Vitals/I&O Vital Signs Date Time Temp Pulse Resp B/P (MAP) Pulse Ox O2 Delivery O2 Flow Rate FiO2 04/14/19 08:58 80 04/14/19 08:05 Nasal Cannula 2.0 04/14/19 07:00 98.4 16 163/70 (101) 96 98.4 I & O 04/13/19 04/13/19 04/14/19 14:59 22:59 06:59 Intake Total 480 ml 0 ml 200 ml Output Total 400 ml 300 ml Balance 480 ml -400 ml -100 ml Physical Exam Physical Exam General appearance - alert, chronically ill appearing, and in no distress and oriented to person, place, and time Mental Status - alert Head - normal Chest -increased air entry, no tenderness of the left shoulder. Heart - S1 and S2 normal Abdomen - soft, nontender, nondistended, Neurological - alert and oriented Extremities -edema plus Skin - warm and dry Labs Laboratory Tests Test 04/13/19 11:44 04/13/19 17:20 04/13/19 20:30 04/14/19 07:45 Glucose (Fingerstick) 169 mg/dL (70-99) H 158 mg/dL (70-99) H 227 mg/dL (70-99) H 225 mg/dL (70-99) H Meds Current Medications Medications (Trade) Dose Ordered Sig/Kyle Route PRN Reason Start Time Stop Time Status Last Admin Dose Admin Methylprednisolone Sodium Succinate (SOLU-Medrol 40MG VIAL) 40 mg 1X ONCE IV 04/13/19 10:30 04/13/19 10:31 DC 04/13/19 11:26 Albuterol/ Ipratropium (Duoneb) 3 ml RTQID NEB 04/13/19 16:00 04/13/19 20:08 Assessment Assessment Problems Medical Problems: (1) NSTEMI (non-ST elevated myocardial infarction) Status: Acute FINAL IMPRESSION:UTI-gram neg (POA) 1. Non-ST elevation myocardial infarction. 2. Congestive heart failure, wfryw-al-bbmrehc, systolic. 3. Known 3-vessel disease, coronary artery disease. 4. Hypertension. 5. Hyperlipidemia. 6. 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 7. Insulin-dependent diabetes. 8. Recurrent urinary tract infections. 9. Hypothyroidism. PLAN: UTI- greater than 100 K gram-negative rods. ID still pending. Continue IV Rocephin. Still has dysuria. Renal insufficiency- BUN is 73 creatinine 2.1. pt refused cath/stent placement /impala. pt/ot/ Coronary artery disease- staff for last the day habilitation specialist to see the patient again. Blood pressure also remains elevated Constipation- continue MiraLAX. Add senna plus. Prognosis is poor. Dyspnea-increase DuoNeb breathing treatment to 4 times a day. Dyspnea is improving. Condition treatment discussed with the patient and the daughter. Plan Plan For more details regarding further plans, please refer to the orders. XENA MALAGON MD Apr 14, 2019 10:11
[2019-04-14 11:07] VITALS: BP 157/70
[2019-04-14] MEDS: SENNOSIDES/DOCUSATE 8.6/50MG TABLET. PO SCH (12:40)
[2019-04-14 15:12] VITALS: BP 143/65
[2019-04-14] MEDS ORDERED: MEROPENEM 500 MG in IV NORMAL SALINE 50ML 50 ML IV ONE (16:00)
[2019-04-14 19:10] VITALS: BP 121/57
[2019-04-14] MEDS: INSULIN GLARGINE SYRINGE. SQ SCH (20:41)
[2019-04-14] MEDS: ATORVASTATIN CALCIUM 20 MG TABLET PO SCH (20:42)
[2019-04-14 23:05] VITALS: BP 146/66
[2019-04-15] VITALS (12 sets, daily range): BP systolic 116–175; BP diastolic 55–77
[2019-04-15 04:01] LABS: CALCIUM 8.6 mg/dL (8.5-10.1); CREATININE 2.2 mg/dL (0.6-1.0); GFR 21.2; POTASSIUM 5.2 mmol/L (3.5-5.1)
[2019-04-15] MEDS: LEVOTHYROXINE 50 MCG TABLET PO SCH (05:09)
[2019-04-15] MEDS: MEROPENEM 500 MG in IV NORMAL SALINE 50ML 50 ML IV SCH ×2 (05:18→20:43)
[2019-04-15] MEDS: INSULIN LISPRO 300 UNITS/3 ML VIAL. SQ SCH ×6 (08:00→17:45)
[2019-04-15] MEDS: IPRATRPIUM/ALBUTEROL 0.5/2.5MG 3 ML NEBU. NEB SCH ×4 (08:19→19:29)
--- NOTE | 2019-04-15 08:57 | NUR ---
IP: Pt is + for (R) Klebsiella pneumoniae with ESBL in urine requiring contact precautions.
[2019-04-15] MEDS ORDERED: IPRATRPIUM/ALBUTEROL 0.5/2.5MG 3 ML NEBU. NEB ONE (09:15)
[2019-04-15] MEDS ORDERED: BUMETANIDE 1 MG/4 ML VIAL. IV SCH (09:15)
--- NOTE | 2019-04-15 09:22 | PDOC ---
PROGRESS NOTES Subjective Subjective SOB and coughing Objective Objective Vital Signs Date Time Temp Pulse Resp B/P (MAP) Pulse Ox O2 Delivery O2 Flow Rate FiO2 04/15/19 08:19 95 Nasal Cannula 2.0 04/15/19 07:00 98.0 70 18 166/77 (106) 98.0 Intake and Output 04/15/19 06:59 Intake Total 480 ml Output Total 600 ml Balance -120 ml Intake Oral 480 ml Output Urine Total 600 ml # Voids 4 Physical Exam Abdomen: Normal bowel sounds, No tenderness Heart: Regular rate Extremities: No clubbing General: Alert, Cooperative, No acute distress HEENT: Atraumatic Lungs: Other (crackles at bases) MUSCULOSKELETAL: No joint tenderness, No deformity Neuro: Normal speech Psych/Mental Status: Mental status NL Skin: No breakdown Diagnosis Problem List Problems Medical Problems: (1) NSTEMI (non-ST elevated myocardial infarction) Status: Acute Assessment Assessment Problems Medical Problems: (1) NSTEMI (non-ST elevated myocardial infarction) Status: Acute FINAL IMPRESSION: chf systolic exacerbration. UTI-gram neg (POA)Klebsella 1. Non-ST elevation myocardial infarction. 2. Congestive heart failure, accsw-sg-rriahco, systolic. 3. Known 3-vessel disease, coronary artery disease. 4. Hypertension. 5. Hyperlipidemia. 6. 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 7. Insulin-dependent diabetes. 8. Recurrent urinary tract infections. 9. Hypothyroidism. PLAN:iv bumex. cxr.duoneb qid. snu screen spoke with family. UTI- greater than 100 K gram-negative rods. Klebsella on meropenum Renal insufficiency- BUN is 73 creatinine 2.2. pt refused cath/stent placement /impala. pt/ot/ Coronary artery disease- staff for last the manager public to see the patient again. Blood pressure also remains elevated Constipation- continue MiraLAX. Add senna plus. Prognosis is poor. Dyspnea-increase DuoNeb breathing treatment to 4 times a day. Dyspnea is improving. Condition treatment discussed with the patient and the daughter. Plan Plan of Care Problems Medical Problems: (1) NSTEMI (non-ST elevated myocardial infarction) Status: Acute Comment Review of Relevant I have reviewed the following items kathleen (where applicable) has been applied. Labs Laboratory Tests Test 04/14/19 11:22 04/14/19 16:46 04/14/19 20:40 04/15/19 03:30 Glucose (Fingerstick) 315 mg/dL (70-99) 118 mg/dL (70-99) 85 mg/dL (70-99) Sodium Level 140 mmol/L (136-145) Potassium Level 5.2 mmol/L (3.5-5.1) Chloride Level 104 mmol/L (98-107) Carbon Dioxide Level 29 mmol/L (21-32) Anion Gap 7 (6-14) Blood Urea Nitrogen 84 mg/dL (7-20) Creatinine 2.2 mg/dL (0.6-1.0) Estimated GFR (Cockcroft-Gault) 21.2 Glucose Level 120 mg/dL (70-99) Calcium Level 8.6 mg/dL (8.5-10.1) Test 04/15/19 07:19 Glucose (Fingerstick) 201 mg/dL (70-99) Microbiology 04/11/19 Urine Culture - Preliminary, Resulted 04/11/19 Urine Culture Result 1 (AMADOU) - Preliminary, Resulted Medications Current Medications Meropenem 500 mg/ Sodium Chloride 50 ml @ 100 mls/hr 1X ONCE IV Last administered on 04/14/19at 17:21; Start 04/14/19 at 16:00; Stop 04/14/19 at 16:29; Status DC Meropenem 500 mg/ Sodium Chloride 50 ml @ 100 mls/hr Q12HR IV Last administered on 04/15/19at 05:18; Start 04/15/19 at 06:00 Senna/Docusate Sodium (Senna Plus) 2 tab DAILY PO Last administered on 04/14/19at 12:40; Start 04/14/19 at 11:00 Vitals/I & O Vital Sign - Last 24 Hours 04/14/19 04/14/19 04/14/19 04/14/19 11:05 11:07 15:12 17:21 Temp 98.1 98.1 98.1 98.1 Pulse 71 74 80 Resp 18 16 B/P (MAP) 157/70 (99) 143/65 (91) Pulse Ox 98 95 96 O2 Delivery Nasal Cannula Nasal Cannula Nasal Cannula O2 Flow Rate 2.0 2.0 2.0 04/14/19 04/14/19 04/14/19 04/14/19 19:10 19:52 20:09 23:05 Temp 98.1 98.2 98.1 98.2 Pulse 63 65 Resp 18 18 B/P (MAP) 121/57 (78) 146/66 (92) Pulse Ox 96 98 97 O2 Delivery Nasal Cannula Nasal Cannula Nasal Cannula Nasal Cannula O2 Flow Rate 2.0 2.0 2.0 2.0 04/15/19 04/15/19 04/15/19 02:50 07:00 08:19 Temp 98.3 98.0 98.3 98.0 Pulse 65 70 Resp 18 18 B/P (MAP) 146/67 (93) 166/77 (106) Pulse Ox 97 90 95 O2 Delivery Nasal Cannula Nasal Cannula Nasal Cannula O2 Flow Rate 2.0 2.0 2.0 Intake and Output 04/14/19 04/14/19 04/15/19 14:59 22:59 06:59 Intake Total 240 ml 240 ml Output Total 600 ml Balance 240 ml 240 ml -600 ml JAMES CORCORAN MD Apr 15, 2019 09:22
--- NOTE | 2019-04-15 09:34 | PDOC ---
SUBJECTIVE ROS On o2 by NC, NAD states not feeling good this morning, no specific complaints OBJECTIVE Vital Signs Vital Signs Date Time Temp Pulse Resp B/P (MAP) Pulse Ox O2 Delivery O2 Flow Rate FiO2 04/15/19 08:19 95 Nasal Cannula 2.0 04/15/19 07:00 98.0 70 18 166/77 (106) 98.0 I & 0 Intake and Output 04/15/19 06:59 Intake Total 480 ml Output Total 600 ml Balance -120 ml Intake Oral 480 ml Output Urine Total 600 ml # Voids 4 PHYSICAL EXAM Physical Exam GEN: NAD HEENT: patient is blind in the left eye, On o2 by NC NECK: Supple. CARDIOVASCULAR: S1, S2. No murmurs. LUNGS: CTA, Non labored ABDOMEN: Soft, bowel sounds present No Simpson, No CVA or SP tenderness EXTREMITIES: no edema. 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 Didn't keep follow up appt with renal as OP in December -Pt 's family informed us that she decided to go on Hospice Malignant HTN - Stable currently Recurrent UTI- per primary HTN: Adrenals Normal on CT Renal Duplex in 2017- No e/o significant ALVARADO Non-ST elevation myocardial infarction managed medically as patient/family has declined high-risk intervention multiple times in the past, but now considering Acute on chronic systolic CHF; Echo showed LVEF 30-35% CAD / 3 V Deon pleural effusion- Thoracentesis in the past On iv lasix DM2 COMMENT/RELEVANT DATA Meds Current Medications Medications (Trade) Dose Ordered Sig/Kyle Start Time Stop Time Status Last Admin Dose Admin Acetaminophen (Tylenol) 650 mg PRN Q4HRS PRN 04/09/19 05:30 04/10/19 05:29 DC Acetaminophen/ Codeine Phosphate (Tylenol #3) 1 tab PRN Q12HR PRN 04/09/19 10:30 04/13/19 03:31 1 TAB Albuterol/ Ipratropium (Duoneb) 3 ml RTQID 04/15/19 12:00 Amlodipine Besylate (Norvasc) 10 mg 1X ONCE 04/09/19 10:30 04/09/19 10:31 DC 04/09/19 10:23 10 MG Aspirin (Children'S Aspirin) 324 mg 1X ONCE 04/09/19 05:15 04/09/19 05:50 DC 04/09/19 05:47 324 MG Aspirin (Ecotrin) 81 mg DAILYWBKFT 04/10/19 08:00 04/14/19 08:57 81 MG Atorvastatin Calcium (Lipitor) 20 mg QHS 04/09/19 21:00 04/14/19 20:42 20 MG Bumetanide (Bumex) 1 mg 1X 04/15/19 09:15 Calcium/Vitamin D (Oscal D 500mg/ 200uts) 1 tab DAILY 04/09/19 11:00 04/14/19 08:58 1 TAB Carvedilol (Coreg) 25 mg BIDWMEALS 04/10/19 17:00 04/14/19 17:21 25 MG Ceftriaxone Sodium (Rocephin) 1 gm Q24H 04/11/19 17:00 04/14/19 15:53 DC 04/13/19 18:07 1 GM Clopidogrel Bisulfate (Plavix) 75 mg DAILY 04/10/19 09:00 UNV Dextrose (Dextrose 50%-Water Syringe) 12.5 gm PRN Q15MIN PRN 04/09/19 11:45 Diclofenac Sodium (Voltaren) 1 opal QID 04/09/19 13:00 04/12/19 12:36 1 OPAL Docusate Sodium (Colace) 100 mg DAILY 04/09/19 11:00 04/14/19 10:36 DC 04/14/19 08:58 100 MG Famotidine (Pepcid) 20 mg PRN DAILY PRN 04/09/19 21:00 Fentanyl Citrate (Fentanyl 2ml Vial) 50 mcg PRN Q1HR PRN 04/09/19 05:30 04/10/19 05:29 DC Ferrous Sulfate (Feosol) 325 mg DAILY 04/09/19 11:00 04/14/19 08:56 325 MG Furosemide (Lasix) 40 mg DAILY 04/10/19 09:00 04/11/19 15:58 DC 04/11/19 09:03 40 MG Heparin Sodium (Porcine) (Heparin Sodium) 3,900 unit 1X ONCE 04/09/19 06:00 04/09/19 06:01 DC 04/09/19 06:11 3,900 UNIT Heparin Sodium/ Dextrose 500 ml @ 0 mls/hr CONT PRN 04/09/19 06:00 04/11/19 15:51 DC 04/10/19 18:42 15.6 MLS/HR Influenza Virus Vaccine Quadrival (Afluria Quad 2019-20 (3yr Up) Syringe) 0.5 ml ONCE ONCE 04/10/19 09:15 04/10/19 09:17 DC 04/11/19 17:21 0.5 ML Info (Anti-Coagulation Monitoring By Pharmacy) 1 each PRN DAILY PRN 04/09/19 10:15 04/12/19 15:29 DC 04/11/19 13:31 1 EACH Insulin Glargine (Lantus Syringe) 15 unit HS 04/11/19 21:00 04/13/19 20:33 15 UNIT Insulin Human Lispro (HumaLOG) 5 units TIDWMEALS 04/11/19 12:00 04/14/19 17:28 5 UNITS Isosorbide Mononitrate (Imdur) 30 mg DAILY 04/09/19 11:00 04/14/19 08:58 30 MG Lactobacillus Rhamnosus (Culturelle) 1 cap BID 04/12/19 21:00 04/14/19 20:41 1 CAP Levothyroxine Sodium (Synthroid) 50 mcg QFR@0600 04/12/19 06:00 04/12/19 07:04 50 MCG Losartan Potassium (Cozaar) 100 mg DAILY 04/09/19 11:00 04/14/19 08:57 100 MG Meropenem (Merrem) 500 mg BID 04/09/19 21:00 UNV Meropenem 500 mg/ Sodium Chloride 50 ml @ 100 mls/hr Q12HR 04/15/19 06:00 04/15/19 05:18 100 MLS/HR Methylprednisolone Sodium Succinate (SOLU-Medrol 40MG VIAL) 40 mg 1X ONCE 04/13/19 10:30 04/13/19 10:31 DC 04/13/19 11:26 40 MG Nitroglycerin (Nitro-Bid Oint) 1 inch 1X ONCE 04/09/19 05:30 04/09/19 05:51 DC 04/09/19 05:47 1 INCH Non-Formulary Medication (Bumetanide ) 0.5 mg BID 04/09/19 21:00 UNV Ondansetron HCl (Zofran) 4 mg PRN Q8HRS PRN 04/09/19 05:30 04/10/19 05:29 DC Polyethylene Glycol (miraLAX PACKET) 17 gm PRN DAILY PRN 04/11/19 16:45 04/14/19 08:58 17 GM Pregabalin (Lyrica) 50 mg BID 04/09/19 11:00 04/14/19 20:42 50 MG Senna/Docusate Sodium (Senna Plus) 2 tab DAILY 04/14/19 11:00 04/14/19 12:40 2 TAB Sodium Chloride 500 ml @ 500 mls/hr 1X ONCE 04/09/19 05:45 04/09/19 06:44 UNV Throat Lozenges (Cepacol Sore Throat Lozenge) 1 charlie PRN Q2HRS PRN 04/13/19 05:00 04/13/19 05:36 1 CHARLIE Lab Laboratory Tests Test 04/14/19 11:22 04/14/19 16:46 04/14/19 20:40 04/15/19 03:30 Glucose (Fingerstick) 315 mg/dL (70-99) 118 mg/dL (70-99) 85 mg/dL (70-99) Sodium Level 140 mmol/L (136-145) Potassium Level 5.2 mmol/L (3.5-5.1) Chloride Level 104 mmol/L (98-107) Carbon Dioxide Level 29 mmol/L (21-32) Anion Gap 7 (6-14) Blood Urea Nitrogen 84 mg/dL (7-20) Creatinine 2.2 mg/dL (0.6-1.0) Estimated GFR (Cockcroft-Gault) 21.2 Glucose Level 120 mg/dL (70-99) Calcium Level 8.6 mg/dL (8.5-10.1) Test 04/15/19 07:19 Glucose (Fingerstick) 201 mg/dL (70-99) Results All relevant outside records, renal labs, imaging studies, telemetry/EKG's were reviewed. MAGALY STANLEY MD Apr 15, 2019 09:34
[2019-04-15] MEDS: ASPIRIN ENTERIC COATED 81 MG TABLET.DR. PO SCH (10:05)
[2019-04-15] MEDS: SENNOSIDES/DOCUSATE 8.6/50MG TABLET. PO SCH (10:05)
[2019-04-15] MEDS: ISOSORBIDE MONONITRATE ER 30 MG TAB.ER.24H PO SCH (10:06)
[2019-04-15] MEDS: PREGABALIN 50 MG CAPSULE PO SCH ×2 (10:07→20:44)
[2019-04-15] MEDS: POLYETHYLENE GLYCOL 3350 17 GM PACKET. PO PRN (10:07)
[2019-04-15] MEDS: FERROUS SULFATE 325 MG TABLET. PO SCH (10:07)
[2019-04-15] MEDS: LACTOBACILLUS RHAMNOSUS GG 1 CAPSULE. PO SCH ×2 (10:07→20:46)
[2019-04-15] MEDS: BUMETANIDE 1 MG TABLET. PO SCH (10:07)
[2019-04-15] MEDS: CARVEDILOL 12.5 MG TABLET. PO SCH ×2 (10:07→17:41)
[2019-04-15] MEDS: CLOPIDOGREL BISULFATE 75 MG TABLET PO SCH (10:08)
[2019-04-15] MEDS: CALCIUM CARB/VIT D3 500/200 TABLET. PO SCH (10:51)
[2019-04-15] MEDS: LOSARTAN POTASSIUM 50 MG TABLET. PO SCH (10:56)
[2019-04-15] MEDS: DICLOFENAC SODIUM 1% TOPICAL GEL 100GM TUBE. TP SCH ×5 (11:00→20:50)
[2019-04-15] MEDS ORDERED: IPRATRPIUM/ALBUTEROL 0.5/2.5MG 3 ML NEBU. NEB SCH (12:00)
--- NOTE | 2019-04-15 13:56 | NUR ---
SS following up with discharge planning. Pt is currently requiring oxygen. PT recommended home with assistance. Pt was previously on services with [facility], ; fax [phone]. SS will continue to follow for discharge planning.
--- NOTE | 2019-04-15 14:06 | RAD ---
Examination: PORTABLE CHEST 1V History: Congestive heart failure Comparison/Correlation: 04/12/2019 two-view chest x-ray exam Findings: Portable Chest X-ray Exam was performed with the patient upright. Heart size is enlarged. Small to moderate-sized bilateral pleural effusions are present greater on the right. Pulmonary vascular congestion is noted with interstitial edema. Increased opacification in the lung bases especially on the right. No pneumothorax. Advanced degenerative changes of a left glenohumeral joint are noted. Impression: Congestive heart failure with bilateral pleural effusions. Increased vascular congestion in the interval. Decreased aeration of the lung bases with increased atelectasis or infiltrate especially on the right. Electronically signed by: Jostin Jones MD (04/15/2019 2:03 PM) [facility]
--- NOTE | 2019-04-15 20:33 | PDOC ---
PROGRESS NOTES Subjective Subjective Had epigastric pain this morning, currently resolved Objective Objective Vital Signs Date Time Temp Pulse Resp B/P (MAP) Pulse Ox O2 Delivery O2 Flow Rate FiO2 04/15/19 19:49 Nasal Cannula 2.0 04/15/19 19:35 98.1 64 20 116/55 (75) 97 98.1 Intake and Output 04/15/19 07:00 Intake Total 480 ml Output Total 600 ml Balance -120 ml Intake Oral 480 ml Output Urine Total 600 ml # Voids 4 Physical Exam Abdomen: Normal bowel sounds, No tenderness Heart: Regular rate Extremities: No clubbing General: Alert, Cooperative, No acute distress HEENT: Atraumatic Lungs: Other (crackles at bases) MUSCULOSKELETAL: No joint tenderness, No deformity Neuro: Normal speech Psych/Mental Status: Mental status NL Skin: No breakdown Assessment Assessment 1. NSTEMI, CAD/3VD and ICM; continue conservative medical management per patient and families wishes. She had epigastric pain this morning but is chest pain-free. Continue ASA, Plavix and nitrates 2. Acute on chronic systolic CHF; Echo showed LVEF 30-35%. Better compensated. Continue current medical regimen. 3. Accelerated HTN; better controlled 4. Hyperlipidemia; statin 5. Diabetes, II; as per PCP 6. IGOR on CKD: Nephrology following Plan Plan of Care Problems Medical Problems: (1) NSTEMI (non-ST elevated myocardial infarction) Status: Acute Comment Review of Relevant I have reviewed the following items kathleen (where applicable) has been applied. Labs Laboratory Tests Test 04/14/19 20:40 04/15/19 03:30 04/15/19 07:19 04/15/19 12:00 Glucose (Fingerstick) 85 mg/dL (70-99) 201 mg/dL (70-99) 381 mg/dL (70-99) Sodium Level 140 mmol/L (136-145) Potassium Level 5.2 mmol/L (3.5-5.1) Chloride Level 104 mmol/L (98-107) Carbon Dioxide Level 29 mmol/L (21-32) Anion Gap 7 (6-14) Blood Urea Nitrogen 84 mg/dL (7-20) Creatinine 2.2 mg/dL (0.6-1.0) Estimated GFR (Cockcroft-Gault) 21.2 Glucose Level 120 mg/dL (70-99) Calcium Level 8.6 mg/dL (8.5-10.1) Test 04/15/19 16:58 Glucose (Fingerstick) 286 mg/dL (70-99) Microbiology 04/11/19 Urine Culture - Preliminary, Resulted 04/11/19 Urine Culture Result 1 (AMADOU) - Preliminary, Resulted Medications Current Medications Albuterol/ Ipratropium (Duoneb) 3 ml 1X ONCE NEB ; Start 04/15/19 at 09:15; Stop 04/15/19 at 09:22; Status DC Albuterol/ Ipratropium (Duoneb) 3 ml RTQID NEB ; Start 04/15/19 at 12:00; Status Cancel Bumetanide (Bumex) 1 mg 1X IV ; Start 04/15/19 at 09:15 Meropenem 500 mg/ Sodium Chloride 50 ml @ 100 mls/hr Q12HR IV Last administered on 04/15/19at 05:18; Start 04/15/19 at 06:00 Vitals/I & O Vital Sign - Last 24 Hours 04/14/19 04/15/19 04/15/19 04/15/19 23:05 02:50 07:00 08:00 Temp 98.2 98.3 98.0 98.2 98.3 98.0 Pulse 65 65 70 Resp 18 18 18 B/P (MAP) 146/66 (92) 146/67 (93) 166/77 (106) Pulse Ox 97 97 90 O2 Delivery Nasal Cannula Nasal Cannula Nasal Cannula Nasal Cannula O2 Flow Rate 2.0 2.0 2.0 2.0 04/15/19 04/15/19 04/15/19 04/15/19 08:19 10:06 10:07 10:34 Temp 98.3 98.3 Pulse 70 70 75 Resp 18 B/P (MAP) 166/77 166/77 175/74 (107) Pulse Ox 95 95 O2 Delivery Nasal Cannula Nasal Cannula O2 Flow Rate 2.0 2.0 04/15/19 04/15/19 04/15/19 04/15/19 10:56 12:09 14:15 14:30 Temp 98.6 98.6 Pulse 75 69 69 Resp 18 18 B/P (MAP) 175/74 153/71 (98) 161/56 (91) Pulse Ox 94 98 98 O2 Delivery Nasal Cannula Nasal Cannula Nasal Cannula O2 Flow Rate 2.0 2.0 2.0 04/15/19 04/15/19 04/15/19 04/15/19 14:45 14:50 15:00 15:30 Temp 97.7 97.7 Pulse 87 67 69 69 Resp 18 18 18 18 B/P (MAP) 159/73 (101) 136/62 (86) 149/60 (89) 146/63 (90) Pulse Ox 98 95 96 96 O2 Delivery Nasal Cannula Nasal Cannula Nasal Cannula Nasal Cannula O2 Flow Rate 2.0 2.0 2.0 2.0 04/15/19 04/15/19 04/15/19 04/15/19 16:00 16:33 17:41 19:32 Pulse 80 67 Resp 18 B/P (MAP) 141/69 (93) 136/62 Pulse Ox 96 96 95 O2 Delivery Nasal Cannula Nasal Cannula Nasal Cannula O2 Flow Rate 2.0 2.0 2.0 04/15/19 04/15/19 19:35 19:49 Temp 98.1 98.1 Pulse 64 Resp 20 B/P (MAP) 116/55 (75) Pulse Ox 97 O2 Delivery Nasal Cannula Nasal Cannula O2 Flow Rate 2.0 2.0 Intake and Output 04/14/19 04/14/19 04/15/19 15:00 23:00 07:00 Intake Total 240 ml 240 ml Output Total 600 ml Balance 240 ml 240 ml -600 ml GERI ANGULO MD Apr 15, 2019 20:33
[2019-04-15] MEDS: ATORVASTATIN CALCIUM 20 MG TABLET PO SCH (20:43)
[2019-04-15] MEDS: INSULIN GLARGINE SYRINGE. SQ SCH (20:44)
[2019-04-16 03:30] VITALS: BP 145/66
[2019-04-16 04:53] LABS: BASO % 1 % (0-3); EOS # 0.2 x10^3/uL (0.0-0.7); EOS % 3 % (0-3); HEMATOCRIT 24.9 % (36.0-47.0); HEMOGLOBIN 8.5 g/dL (12.0-15.5); LYMPH # 1.2 x10^3/uL (1.0-4.8); LYMPH % 22 % (24-48); MEAN CORPUSCULAR HEMOGLOBIN 30 pg (25-35); MEAN CORPUSCULAR HGB CONC 34 g/dL (31-37); MEAN CORPUSCULAR VOLUME 87 fL (79-100); MONO # 0.5 x10^3/uL (0.0-1.1); MONO % 9 % (0-9); NEUT # 3.5 x10^3/uL (1.8-7.7); NEUT % 66 % (31-73); PLATELET COUNT 157 x10^3/uL (140-400); RED BLOOD COUNT 2.85 x10^6/uL (3.50-5.40); RED CELL DISTRIBUTION WIDTH 13.4 % (11.5-14.5); WHITE BLOOD COUNT 5.3 x10^3/uL (4.0-11.0)
[2019-04-16] MEDS: LEVOTHYROXINE 50 MCG TABLET PO SCH (05:09)
[2019-04-16 05:13] LABS: CALCIUM 8.4 mg/dL (8.5-10.1); CREATININE 2.2 mg/dL (0.6-1.0); GFR 21.2
[2019-04-16 05:20] LABS: POTASSIUM 5.8 mmol/L (3.5-5.1)
[2019-04-16 07:00] VITALS: BP 162/70
[2019-04-16] MEDS: IPRATRPIUM/ALBUTEROL 0.5/2.5MG 3 ML NEBU. NEB SCH ×2 (08:49→11:29)
[2019-04-16] MEDS: BUMETANIDE 1 MG TABLET. PO SCH (08:57)
[2019-04-16] MEDS: CALCIUM CARB/VIT D3 500/200 TABLET. PO SCH (08:57)
[2019-04-16] MEDS: ASPIRIN ENTERIC COATED 81 MG TABLET.DR. PO SCH (08:57)
[2019-04-16] MEDS: ISOSORBIDE MONONITRATE ER 30 MG TAB.ER.24H PO SCH (08:57)
[2019-04-16] MEDS: LOSARTAN POTASSIUM 50 MG TABLET. PO SCH (08:58)
[2019-04-16] MEDS: CLOPIDOGREL BISULFATE 75 MG TABLET PO SCH (08:58)
[2019-04-16] MEDS: SENNOSIDES/DOCUSATE 8.6/50MG TABLET. PO SCH (08:58)
[2019-04-16] MEDS: LACTOBACILLUS RHAMNOSUS GG 1 CAPSULE. PO SCH (08:59)
[2019-04-16] MEDS: FERROUS SULFATE 325 MG TABLET. PO SCH (08:59)
[2019-04-16] MEDS: CARVEDILOL 12.5 MG TABLET. PO SCH (08:59)
[2019-04-16] MEDS: DICLOFENAC SODIUM 1% TOPICAL GEL 100GM TUBE. TP SCH ×2 (09:00→12:57)
[2019-04-16] MEDS: PREGABALIN 50 MG CAPSULE PO SCH (09:03)
[2019-04-16] MEDS: INSULIN LISPRO 300 UNITS/3 ML VIAL. SQ SCH ×4 (09:09→12:56)
[2019-04-16] MEDS ORDERED: ASPI-612 PO (10:15)
[2019-04-16] MEDS ORDERED: SODIUM POLYSTYRENE SULFON/SORB 15 GM/60 ML ORAL.SUSP PO ONE (10:15)
[2019-04-16] MEDS ORDERED: CEFP100T PO (10:15)
--- NOTE | 2019-04-16 10:19 | PDOC ---
PROGRESS NOTES Subjective Subjective feels bettr want to go home Objective Objective Vital Signs Date Time Temp Pulse Resp B/P (MAP) Pulse Ox O2 Delivery O2 Flow Rate FiO2 04/16/19 08:59 100 162/70 04/16/19 08:51 97 Nasal Cannula 3.0 04/16/19 07:00 98.2 16 98.2 Intake and Output 04/16/19 07:00 Intake Total 940 ml Output Total 700 ml Balance 240 ml Intake Oral 940 ml Output Urine Total 700 ml # Voids 4 # Bowel Movements 2 Physical Exam Abdomen: Normal bowel sounds, No tenderness Heart: Regular rate Extremities: No clubbing General: Alert, Cooperative, No acute distress HEENT: Atraumatic Lungs: Other (crackles at bases) MUSCULOSKELETAL: No joint tenderness, No deformity Neuro: Normal speech Psych/Mental Status: Mental status NL Skin: No breakdown Diagnosis Problem List Problems Medical Problems: (1) NSTEMI (non-ST elevated myocardial infarction) Status: Acute Assessment Assessment Problems Medical Problems: (1) NSTEMI (non-ST elevated myocardial infarction) Status: Acute FINAL IMPRESSION:Hyperkalemia,pot 5.8 chf systolic exacerbration. UTI-gram neg (POA)Klebsella 1. Non-ST elevation myocardial infarction. 2. Congestive heart failure, [id number], systolic. 3. Known 3-vessel disease, coronary artery disease. 4. Hypertension. 5. Hyperlipidemia. 6. 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 7. Insulin-dependent diabetes. 8. Recurrent urinary tract infections. 9. Hypothyroidism. PLAN:d/c home with home health. poor prognosis. d/c losartin give Kaexelate. iv bumex. cxr. chf ,duoneb qid. spoke with family. UTI- greater than 100 K gram-negative rods. Klebsella on Vantin x5 days Renal insufficiency- BUN is 73 creatinine 2.2. pt refused cath/stent placement /impala. chance of readmission high. Plan Plan of Care Problems Medical Problems: (1) NSTEMI (non-ST elevated myocardial infarction) Status: Acute Comment Review of Relevant I have reviewed the following items kathleen (where applicable) has been applied. Labs Laboratory Tests Test 04/15/19 12:00 04/15/19 16:58 04/15/19 20:42 04/16/19 04:35 Glucose (Fingerstick) 381 mg/dL (70-99) 286 mg/dL (70-99) 134 mg/dL (70-99) White Blood Count 5.3 x10^3/uL (4.0-11.0) Red Blood Count 2.85 x10^6/uL (3.50-5.40) Hemoglobin 8.5 g/dL (12.0-15.5) Hematocrit 24.9 % (36.0-47.0) Mean Corpuscular Volume 87 fL (79-100) Mean Corpuscular Hemoglobin 30 pg (25-35) Mean Corpuscular Hemoglobin Concent 34 g/dL (31-37) Red Cell Distribution Width 13.4 % (11.5-14.5) Platelet Count 157 x10^3/uL (140-400) Neutrophils (%) (Auto) 66 % (31-73) Lymphocytes (%) (Auto) 22 % (24-48) Monocytes (%) (Auto) 9 % (0-9) Eosinophils (%) (Auto) 3 % (0-3) Basophils (%) (Auto) 1 % (0-3) Neutrophils # (Auto) 3.5 x10^3/uL (1.8-7.7) Lymphocytes # (Auto) 1.2 x10^3/uL (1.0-4.8) Monocytes # (Auto) 0.5 x10^3/uL (0.0-1.1) Eosinophils # (Auto) 0.2 x10^3/uL (0.0-0.7) Basophils # (Auto) 0.0 x10^3/uL (0.0-0.2) Sodium Level 141 mmol/L (136-145) Potassium Level 5.8 mmol/L (3.5-5.1) Chloride Level 106 mmol/L (98-107) Carbon Dioxide Level 27 mmol/L (21-32) Anion Gap 8 (6-14) Blood Urea Nitrogen 85 mg/dL (7-20) Creatinine 2.2 mg/dL (0.6-1.0) Estimated GFR (Cockcroft-Gault) 21.2 Glucose Level 163 mg/dL (70-99) Calcium Level 8.4 mg/dL (8.5-10.1) Test 04/16/19 08:08 Glucose (Fingerstick) 199 mg/dL (70-99) Microbiology 04/11/19 Urine Culture - Preliminary, Resulted 04/11/19 Urine Culture Result 1 (AMADOU) - Preliminary, Resulted Medications Current Medications Albuterol/ Ipratropium (Duoneb) 3 ml RTQID NEB ; Start 04/15/19 at 12:00; Status Cancel Vitals/I & O Vital Sign - Last 24 Hours 04/15/19 04/15/19 04/15/19 04/15/19 10:34 10:56 12:09 14:15 Temp 98.3 98.6 98.3 98.6 Pulse 75 75 69 Resp 18 18 B/P (MAP) 175/74 (107) 175/74 153/71 (98) Pulse Ox 95 94 98 O2 Delivery Nasal Cannula Nasal Cannula Nasal Cannula O2 Flow Rate 2.0 2.0 2.0 04/15/19 04/15/19 04/15/19 04/15/19 14:30 14:45 14:50 15:00 Temp 97.7 97.7 Pulse 69 87 67 69 Resp 18 18 18 18 B/P (MAP) 161/56 (91) 159/73 (101) 136/62 (86) 149/60 (89) Pulse Ox 98 98 95 96 O2 Delivery Nasal Cannula Nasal Cannula Nasal Cannula Nasal Cannula O2 Flow Rate 2.0 2.0 2.0 2.0 04/15/19 04/15/19 04/15/19 04/15/19 15:30 16:00 16:33 17:41 Pulse 69 80 67 Resp 18 18 B/P (MAP) 146/63 (90) 141/69 (93) 136/62 Pulse Ox 96 96 96 O2 Delivery Nasal Cannula Nasal Cannula Nasal Cannula O2 Flow Rate 2.0 2.0 2.0 04/15/19 04/15/19 04/15/19 04/15/19 19:32 19:35 19:49 22:45 Temp 98.1 98.3 98.1 98.3 Pulse 64 64 Resp 20 18 B/P (MAP) 116/55 (75) 163/69 (100) Pulse Ox 95 97 98 O2 Delivery Nasal Cannula Nasal Cannula Nasal Cannula Nasal Cannula O2 Flow Rate 2.0 2.0 2.0 2.0 04/16/19 04/16/19 04/16/1904/16/19 03:30 07:00 08:51 08:57 Temp 98.4 98.2 98.4 98.2 Pulse 63 100 63 Resp 18 16 B/P (MAP) 145/66 (92) 162/70 (100) 145/66 Pulse Ox 97 97 97 O2 Delivery Nasal Cannula Nasal Cannula Nasal Cannula O2 Flow Rate 2.0 2.0 3.0 04/16/19 04/16/19 08:58 08:59 Pulse 100 100 B/P (MAP) 162/70 162/70 Intake and Output 04/15/19 04/15/19 04/16/19 15:00 23:00 07:00 Intake Total 480 ml 240 ml 220 ml Output Total 600 ml 100 ml Balance 480 ml -360 ml 120 ml JAMES CORCORAN MD Apr 16, 2019 10:19
--- NOTE | 2019-04-16 10:40 | PDOC ---
SUBJECTIVE ROS On o2 by NC, NAD OBJECTIVE Vital Signs Vital Signs Date Time Temp Pulse Resp B/P (MAP) Pulse Ox O2 Delivery O2 Flow Rate FiO2 04/16/19 08:59 100 162/70 04/16/19 08:51 97 Nasal Cannula 3.0 04/16/19 07:00 98.2 16 98.2 I & 0 Intake and Output 04/16/19 06:59 Intake Total 940 ml Output Total 700 ml Balance 240 ml Intake Oral 940 ml Output Urine Total 700 ml # Voids 4 # Bowel Movements 2 PHYSICAL EXAM Physical Exam GEN: NAD HEENT: patient is blind in the left eye, On o2 by NC NECK: Supple. CARDIOVASCULAR: S1, S2. No murmurs. LUNGS: CTA, Non labored ABDOMEN: Soft, bowel sounds present No Simpson, No CVA or SP tenderness EXTREMITIES: no edema. 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 Didn't keep follow up appt with renal as OP in December -Pt 's family informed us that she decided to go on Hospice Malignant HTN - Stable currently Recurrent UTI- per primary HTN: Adrenals Normal on CT Renal Duplex in 2016- No e/o significant ALVARADO Non-ST elevation myocardial infarction managed medically as patient/family has declined high-risk intervention multiple times in the past, but now considering Acute on chronic systolic CHF; Echo showed LVEF 30-35% CAD / 3 V Deon pleural effusion- Thoracentesis in the past On iv lasix DM2 COMMENT/RELEVANT DATA Meds Current Medications Medications (Trade) Dose Ordered Sig/Kyle Start Time Stop Time Status Last Admin Dose Admin Acetaminophen (Tylenol) 650 mg PRN Q4HRS PRN 04/09/19 05:30 04/10/19 05:29 DC Acetaminophen/ Codeine Phosphate (Tylenol #3) 1 tab PRN Q12HR PRN 04/09/19 10:30 04/13/19 03:31 1 TAB Albuterol/ Ipratropium (Duoneb) 3 ml RTQID 04/15/19 12:00 Cancel Amlodipine Besylate (Norvasc) 10 mg 1X ONCE 04/09/19 10:30 04/09/19 10:31 DC 04/09/19 10:23 10 MG Aspirin (Children'S Aspirin) 324 mg 1X ONCE 04/09/19 05:15 04/09/19 05:50 DC 04/09/19 05:47 324 MG Aspirin (Ecotrin) 81 mg DAILYWBKFT 04/10/19 08:00 04/16/19 08:57 81 MG Atorvastatin Calcium (Lipitor) 20 mg QHS 04/09/19 21:00 04/15/19 20:43 20 MG Bumetanide (Bumex) 1 mg 1X 04/15/19 09:15 Calcium/Vitamin D (Oscal D 500mg/ 200uts) 1 tab DAILY 04/09/19 11:00 04/16/19 08:57 1 TAB Carvedilol (Coreg) 25 mg BIDWMEALS 04/10/19 17:00 04/16/19 08:59 25 MG Ceftriaxone Sodium (Rocephin) 1 gm Q24H 04/11/19 17:00 04/14/19 15:53 DC 04/13/19 18:07 1 GM Clopidogrel Bisulfate (Plavix) 75 mg DAILY 04/10/19 09:00 UNV Dextrose (Dextrose 50%-Water Syringe) 12.5 gm PRN Q15MIN PRN 04/09/19 11:45 Diclofenac Sodium (Voltaren) 1 opal QID 04/09/19 13:00 04/15/19 17:00 1 OPAL Docusate Sodium (Colace) 100 mg DAILY 04/09/19 11:00 04/14/19 10:36 DC 04/14/19 08:58 100 MG Famotidine (Pepcid) 20 mg PRN DAILY PRN 04/09/19 21:00 Fentanyl Citrate (Fentanyl 2ml Vial) 50 mcg PRN Q1HR PRN 04/09/19 05:30 04/10/19 05:29 DC Ferrous Sulfate (Feosol) 325 mg DAILY 04/09/19 11:00 04/16/19 08:59 325 MG Furosemide (Lasix) 40 mg DAILY 04/10/19 09:00 04/11/19 15:58 DC 04/11/19 09:03 40 MG Heparin Sodium (Porcine) (Heparin Sodium) 3,900 unit 1X ONCE 10/8/19 06:00 04/09/19 06:01 DC 04/09/19 06:11 3,900 UNIT Heparin Sodium/ Dextrose 500 ml @ 0 mls/hr CONT PRN 04/09/19 06:00 04/11/19 15:51 DC 04/10/19 18:42 15.6 MLS/HR Influenza Virus Vaccine Quadrival (Afluria Quad 2019-20 (3yr Up) Syringe) 0.5 ml ONCE ONCE 04/10/19 09:15 04/10/19 09:17 DC 04/11/19 17:21 0.5 ML Info (Anti-Coagulation Monitoring By Pharmacy) 1 each PRN DAILY PRN 04/09/19 10:15 04/12/19 15:29 DC 04/11/19 13:31 1 EACH Insulin Glargine (Lantus Syringe) 15 unit HS 04/11/19 21:00 04/13/19 20:33 15 UNIT Insulin Human Lispro (HumaLOG) 5 units TIDWMEALS 04/11/19 12:00 04/16/19 09:09 5 UNITS Isosorbide Mononitrate (Imdur) 30 mg DAILY 04/09/19 11:00 04/16/19 08:57 30 MG Lactobacillus Rhamnosus (Culturelle) 1 cap BID 04/12/19 21:00 04/16/19 08:59 1 CAP Levothyroxine Sodium (Synthroid) 50 mcg QFR@0600 04/12/19 06:00 04/12/19 07:04 50 MCG Losartan Potassium (Cozaar) 100 mg DAILY 04/09/19 11:00 04/16/19 10:16 DC 04/16/19 08:58 100 MG Meropenem (Merrem) 500 mg BID 04/09/19 21:00 UNV Meropenem 500 mg/ Sodium Chloride 50 ml @ 100 mls/hr Q12HR 04/15/19 06:00 04/16/19 10:16 DC 04/15/19 20:43 100 MLS/HR Methylprednisolone Sodium Succinate (SOLU-Medrol 40MG VIAL) 40 mg 1X ONCE 04/13/19 10:30 04/13/19 10:31 DC 04/13/19 11:26 40 MG Nitroglycerin (Nitro-Bid Oint) 1 inch 1X ONCE 04/09/19 05:30 04/09/19 05:51 DC 04/09/19 05:47 1 INCH Non-Formulary Medication (Bumetanide ) 0.5 mg BID 04/09/19 21:00 UNV Ondansetron HCl (Zofran) 4 mg PRN Q8HRS PRN 04/09/19 05:30 04/10/19 05:29 DC Polyethylene Glycol (miraLAX PACKET) 17 gm PRN DAILY PRN 04/11/19 16:45 04/15/19 10:07 17 GM Pregabalin (Lyrica) 50 mg BID 04/09/19 11:00 04/16/19 09:03 50 MG Senna/Docusate Sodium (Senna Plus) 2 tab DAILY 04/14/19 11:00 04/16/19 08:58 2 TAB Sodium Polystyrene Sulfonate (Kayexalate) 15 gm 1X ONCE 04/16/19 10:15 04/16/19 10:17 DC Sodium Chloride 500 ml @ 500 mls/hr 1X ONCE 04/09/19 05:45 04/09/19 06:44 UNV Throat Lozenges (Cepacol Sore Throat Lozenge) 1 charlie PRN Q2HRS PRN 04/13/19 05:00 04/13/19 05:36 1 CHARLIE Lab Laboratory Tests Test 04/15/19 12:00 04/15/19 16:58 04/15/19 20:42 04/16/19 04:35 Glucose (Fingerstick) 381 mg/dL (70-99) 286 mg/dL (70-99) 134 mg/dL (70-99) White Blood Count 5.3 x10^3/uL (4.0-11.0) Red Blood Count 2.85 x10^6/uL (3.50-5.40) Hemoglobin 8.5 g/dL (12.0-15.5) Hematocrit 24.9 % (36.0-47.0) Mean Corpuscular Volume 87 fL (79-100) Mean Corpuscular Hemoglobin 30 pg (25-35) Mean Corpuscular Hemoglobin Concent 34 g/dL (31-37) Red Cell Distribution Width 13.4 % (11.5-14.5) Platelet Count 157 x10^3/uL (140-400) Neutrophils (%) (Auto) 66 % (31-73) Lymphocytes (%) (Auto) 22 % (24-48) Monocytes (%) (Auto) 9 % (0-9) Eosinophils (%) (Auto) 3 % (0-3) Basophils (%) (Auto) 1 % (0-3) Neutrophils # (Auto) 3.5 x10^3/uL (1.8-7.7) Lymphocytes # (Auto) 1.2 x10^3/uL (1.0-4.8) Monocytes # (Auto) 0.5 x10^3/uL (0.0-1.1) Eosinophils # (Auto) 0.2 x10^3/uL (0.0-0.7) Basophils # (Auto) 0.0 x10^3/uL (0.0-0.2) Sodium Level 141 mmol/L (136-145) Potassium Level 5.8 mmol/L (3.5-5.1) Chloride Level 106 mmol/L (98-107) Carbon Dioxide Level 27 mmol/L (21-32) Anion Gap 8 (6-14) Blood Urea Nitrogen 85 mg/dL (7-20) Creatinine 2.2 mg/dL (0.6-1.0) Estimated GFR (Cockcroft-Gault) 21.2 Glucose Level 163 mg/dL (70-99) Calcium Level 8.4 mg/dL (8.5-10.1) Test 04/16/19 08:08 Glucose (Fingerstick) 199 mg/dL (70-99) Results All relevant outside records, renal labs, imaging studies, telemetry/EKG's were reviewed. MAGALY STANLEY MD Apr 16, 2019 10:40
[2019-04-16 10:47] VITALS: BP 137/62
--- NOTE | 2019-04-16 13:13 | NUR ---
SS following up with discharge planning. Discharge orders received for home with home healthcare. SS contacted [facility], ; fax [phone] and was notified that they no longer accept pt's insurance. SS discussed with pt's family and pt's family requested referral be phoned and faxed to [facility], ; fax [phone]. SS contacted [facility] and was notified that they are not in network with pt's insurance. Pt' family now requesting referral be phoned and faxed to [facility], ; fax [phone]. SS phoned and faxed referral to [facility] and was notified that they do accept pt's insurance. Pt's RN notified.
[2019-04-16 15:00] VITALS: BP 156/66
--- NOTE | 2019-04-16 15:09 | PDOC ---
Provider Note Provider Note Discharge summary dictated,[id number]. JAMES CORCORAN MD Apr 16, 2019 15:09
[2019-04-16] MEDS ORDERED: CARV25TA2 PO (15:20)
--- NOTE | 2019-04-16 16:03 | NUR ---
Discharge instructions reviewed with patient and family, follow ups and prescription given, verbalizes understanding.
--- NOTE | 2019-04-16 20:12 | DS ---
DATE OF DISCHARGE: 04/16/2019 REASON FOR ADMISSION TO THE HOSPITAL: 1. Acute non-ST elevation myocardial infarction. 2. Acute congestive heart failure and pulmonary edema. 3. Chronic kidney disease. 4. Urinary tract infection. CONSULTATIONS: 1. Dr. Oneal. 2. Dr. Palacio. PROCEDURES DONE: Echocardiogram. HOSPITAL COURSE: The patient is an 88-year-old female. She has a 3-vessel coronary artery disease, had a cardiac catheterization 1 year ago. At that time, she refused further intervention. She came with chest pain lasted for more than 6 hours. She came with non-STEMI and troponin went up to 30. The patient was put on heparin drip. The patient initially wanted intervention, but when she was explained that she could go into kidney failure, needing dialysis, she refused cardiac intervention. The patient was given IV Lasix or IV Bumex because she developed congestive heart failure and pulmonary edema. The patient's echocardiogram shows ejection fraction of 35%, severely impaired left ventricular hypokinesia, moderate pulmonary hypertension, PA pressure is 60, and rhoi-qg-tuhllrvz mitral regurgitation. The patient also had a urinary tract infection, Klebsiella pneumoniae, is a multidrug-resistant Klebsiella. The patient was put on the meropenem and then changed it to Vantin as outpatient. The patient had a kidney around 2.3. Her potassium went up to 5.8. The patient was given Kayexalate, stopped losartan, and the patient had a CHF exacerbation and that was optimized. On the whole, the patient's condition was improving. Poor prognosis. The patient wanted to go home and refused further interventions. FINAL DIAGNOSES: 1. Acute myocardial infarction, [id number] myocardial infarction. 2. Acute pulmonary edema/congestive heart failure. 3. Chronic systolic heart failure with the acute exacerbation secondary to myocardial infarction. 4. Pulmonary hypertension. 5. Insulin-dependent diabetes. 6. Hypertension. 7. Hyperlipidemia. 8. Chronic kidney disease, stage 3 and 4. 9. Hyperkalemia secondary to ____ ARB inhibitors. 10. History of breast cancer, had a mastectomy. DISPOSITION: Home with the home health. DISCHARGE MEDICATIONS: See MRAD. PROGNOSIS: Poor. JAMES CORCORAN MD DR: ADRIANA/liang JOB#: [id number] / [id number]
== END 2019-04-16 15:56 | disposition home health service (06) | DRG 280 ==
LOC: ER 04:53 → 2 NORTH 05:26
PROVIDERS: ADMIT Internal Medicine; ATTEND Internal Medicine
DX: I21.4 Non-ST elevation (NSTEMI) myocardial infarction (principal); I50.23 Acute on chronic systolic (congestive) heart failure; N17.9 Acute kidney failure, unspecified; I13.0 Hypertensive heart and chronic kidney disease with heart failure and stage 1 through stage 4 chronic kidney disease, or unspecified chronic kidney disease; N18.4 Chronic kidney disease, stage 4 (severe); N39.0 Urinary tract infection, site not specified; Z16.24 Resistance to multiple antibiotics; B96.1 Klebsiella pneumoniae [K. pneumoniae] as the cause of diseases classified elsewhere; E03.9 Hypothyroidism, unspecified; E11.22 Type 2 diabetes mellitus with diabetic chronic kidney disease; E78.00 Pure hypercholesterolemia, unspecified; E78.5 Hyperlipidemia, unspecified; Z96.642 Presence of left artificial hip joint; F32.9 Major depressive disorder, single episode, unspecified; F41.9 Anxiety disorder, unspecified; E87.5 Hyperkalemia; H40.9 Unspecified glaucoma; I25.10 Atherosclerotic heart disease of native coronary artery without angina pectoris; I27.20 Pulmonary hypertension, unspecified; K21.9 Gastro-esophageal reflux disease without esophagitis; K59.00 Constipation, unspecified; Z79.4 Long term (current) use of insulin; Z83.3 Family history of diabetes mellitus; Z85.3 Personal history of malignant neoplasm of breast; Z87.440 Personal history of urinary (tract) infections; Z90.12 Acquired absence of left breast and nipple; G89.29 Other chronic pain; M19.90 Unspecified osteoarthritis, unspecified site; Z90.49 Acquired absence of other specified parts of digestive tract
CPT/HCPCS: 36415; 71045; 71046; 80048; 80053; 80061; 81001; 82962; 83036; 83735; 83880; 84132; 84443; 84484; 85025; 85520; 87086; 87186; 90471; 90686; 93005; 93306; 94618; 94640; 94760; 96374; 96375; J0696; J1644; J1815; J1940; J2185; J2920; J3010; J7620; 99291-25; G0378

== ENCOUNTER 2020-02-14 12:53 | Inpatient (IN) | payer OTHER ==
[~2020-02-14] VITALS: Ht 149.9 cm; Wt 68.5 kg
[~2020-02-14 12:53] MED LIST changes: -ASPI-612 PO; +ASPI-886 PO; +CARV25TA2 PO; +CEFP100T PO; -DICL100G18 TP; +DICL100G54 TP; +FENO145T3 PO; -FENO145T30 PO; -MECL12.52 PO; +MECL12.573 PO; -MERO500V15 IV; +MERO500V24 IV; +METF-658 PO; -METF500T11 PO; +ONDA-84 PO; -ONDA4TAB11 PO; -POTA10TA12 PO; +POTASSIUM CHLO10 ME1 PO; -PREG50CA PO; +PREG50CA91 PO; +WARF2.5T2 PO; -WARF2.5T83 PO
--- NOTE | 2020-02-14 14:24 | RAD ---
EXAM: CHEST 1 VIEW History: Weakness COMPARISON: 04/12/2019 TECHNIQUE: Single portable radiograph of the chest FINDINGS: Low lung volumes and technique accentuates heart size and pulmonary vascularity. Mild bibasilar lung airspace opacities likely atelectasis or infiltrates. The costophrenic sulci are clear and well demarcated. IMPRESSION: Mild bibasilar lung airspace opacities likely atelectasis or infiltrates. Electronically signed by: Ruben Farooq MD (02/14/2020 2:21 PM) [id number]
[2020-02-14 14:39] LABS: BASO % 1 % (0-3); EOS # 0.2 x10^3/uL (0.0-0.7); EOS % 3 % (0-3); HEMATOCRIT 26.7 % (36.0-47.0); HEMOGLOBIN 9.3 g/dL (12.0-15.5); LYMPH # 1.5 x10^3/uL (1.0-4.8); LYMPH % 26 % (24-48); MEAN CORPUSCULAR HEMOGLOBIN 30 pg (25-35); MEAN CORPUSCULAR HGB CONC 35 g/dL (31-37); MEAN CORPUSCULAR VOLUME 87 fL (79-100); MONO # 0.4 x10^3/uL (0.0-1.1); MONO % 7 % (0-9); NEUT # 3.7 x10^3/uL (1.8-7.7); NEUT % 64 % (31-73); PLATELET COUNT 167 x10^3/uL (140-400); RED BLOOD COUNT 3.08 x10^6/uL (3.50-5.40); RED CELL DISTRIBUTION WIDTH 13.3 % (11.5-14.5); WHITE BLOOD COUNT 5.9 x10^3/uL (4.0-11.0)
[2020-02-14 14:47] LABS: CALCIUM 7.9 mg/dL (8.5-10.1); CREATININE 3.7 mg/dL (0.6-1.0); GFR 11.6; POTASSIUM 4.7 mmol/L (3.5-5.1)
[2020-02-14 14:52] LABS: ALBUMIN/GLOBULIN RATIO 0.8 (1.0-1.7); TOTAL BILIRUBIN 0.2 mg/dL (0.2-1.0); TOTAL PROTEIN 6.8 g/dL (6.4-8.2)
--- NOTE | 2020-02-14 14:53 | PHYS DOC ---
Past Medical History Past Medical History: Anemia, Cancer, CHF, Diabetes-Type II, GERD, High Cholesterol, Hypertension, Hypothyroid, VT, Other Additional Past Medical Histor: L. BREAST CA,CHRONIC PAIN, L EYE BLIND Past Surgical History: Cholecystectomy, Other Additional Past Surgical Histo: L. MASTECTOMY,LEG SURG; L HIPbypass bilat LE,cardiac cath/no stents Smoking Status: Former Smoker Alcohol Use: None Drug Use: None General Adult EDM: Chief Complaint: WEAKNESS/GENERALIZED HPI: HPI: Patient is an 89-year-old female who presents to the emergency room complaining of hypotension and dizziness. Family states that on Monday her blood pressure was 70/30. Today it has been 100s/40s. They did hold her blood pressure medicine this morning. She is been feeling generally weak and only feels dizzy when she stands up. She has no other symptoms. She denies chest pain, shortness of breath, headache, nausea, vomiting, abdominal pain. Review of Systems: Review of Systems: General: Denies fever, chills, sweats. reports fatigue Eyes: Denies drainage, blurred vision, eye redness HENT: Denies rhinorrhea, sore throat, earache Respiratory: Denies cough, shortness of breath, wheezing Cardiac: Denies edema, palpitations, chest pain GI: Denies abdominal pain, Nausea, vomiting MSK: Denies back pain, neck pain Skin: Denies rash, jaundice Neuro: Denies headache. Reports dizziness Psychiatric: Denies SI/HI Heart Score: Risk Factors: Risk Factors: DM, Current or recent (<one month) smoker, HTN, HLP, family history of CAD, obesity. Risk Scores: Score 0 - 3: 2.5% MACE over next 6 weeks - Discharge Home Score 4 - 6: 20.3% MACE over next 6 weeks - Admit for Clinical Observation Score 7 - 10: 72.7% MACE over next 6 weeks - Early Invasive Strategies Allergies: Allergies: Allergies Coded Allergies Type Severity Reaction Last Updated Verified I S O L A T I O N *CONTACT* Allergy Unknown 04/15/19 Yes No Known Medication Allergies Allergy Unknown 08/01/18 Yes Physical Exam: PE: General: Awake, alert, NAD. Well Nourished, well hydrated. Cooperative HEENT: Atraumatic, EOMI, PERRL, airway patent, moist oral mucosa Neck: Supple, trachea midline Respiratory: CTA bilaterally, normal effort, no wheezing/crackles CV: RRR, no murmur, cap refill <2 GI: Soft, nondistended, nontender, no masses MSK: No obvious deformities Skin: Warm, dry, intact Neuro: A&O x3, speech NL, sensory and motor grossly intact, no focal deficits Psych: Normal affect, normal mood, not suicidal or homicidal Current Patient Data: Labs: Laboratory Tests Test 02/14/20 14:25 White Blood Count 5.9 x10^3/uL (4.0-11.0) Red Blood Count 3.08 x10^6/uL (3.50-5.40) L Hemoglobin 9.3 g/dL (12.0-15.5) L Hematocrit 26.7 % (36.0-47.0) L Mean Corpuscular Volume 87 fL (79-100) Mean Corpuscular Hemoglobin 30 pg (25-35) Mean Corpuscular Hemoglobin Concent 35 g/dL (31-37) Red Cell Distribution Width 13.3 % (11.5-14.5) Platelet Count 167 x10^3/uL (140-400) Neutrophils (%) (Auto) 64 % (31-73) Lymphocytes (%) (Auto) 26 % (24-48) Monocytes (%) (Auto) 7 % (0-9) Eosinophils (%) (Auto) 3 % (0-3) Basophils (%) (Auto) 1 % (0-3) Neutrophils # (Auto) 3.7 x10^3/uL (1.8-7.7) Lymphocytes # (Auto) 1.5 x10^3/uL (1.0-4.8) Monocytes # (Auto) 0.4 x10^3/uL (0.0-1.1) Eosinophils # (Auto) 0.2 x10^3/uL (0.0-0.7) Basophils # (Auto) 0.0 x10^3/uL (0.0-0.2) Laboratory Tests 02/14/20 14:25 EKG: EKG: [] Radiology/Procedures: Radiology/Procedures: [] Course & Med Decision Making: Course & Med Decision Making Pertinent Labs and Imaging studies reviewed. (See chart for details) Patient is an 89-year-old female who presents to the emergency room with dizziness. Blood pressure stable at this time. Work-up will be ordered including CBC, BMP, troponin, EKG, chest x-ray. Patient is generally well-ap pearing. Patient's labs shows worsening kidney failure. Will gently hydrate her here in the emergency room. This is likely due to a large amount of diuretics. Patient will be admitted and a renal consult will be placed. Work up was reviewed and was remarkable for kidney failure with elevated BUN. At this time, patient would benefit from further work up and management. Patient is not stable for discharge at this time. Results, vitals, interventions, and plan was discussed with the patient. Patient was given opportunity to ask any questions and are in agreement with plan for admission. Patient was discussed with admitting physician and bridge admission orders were placed. Further care will be managed by inpatient team. Dragon Disclaimer: Dragon Disclaimer: This electronic medical record was generated, in whole or in part, using a voice recognition dictation system. Departure Departure Impression: Primary Impression: Weakness Additional Impressions: Kidney failure Hyperuricemia Disposition: ADMITTED INPATIENT Condition: STABLE Referrals: JAMES CORCORAN MD (PCP) Justicifation of Admission Dx: Justifications for Admission: Justification of Admission Dx: Yes CONNIE RODRIGUEZ MD Feb 14, 2020 14:53
[2020-02-14] MEDS ORDERED: IV NORMAL SALINE 1000ML BAG 1,000 ML IV ONE ×2 (15:15→16:00)
--- NOTE | 2020-02-14 15:56 | EKG ---
[facility] [address] [place] [address] Test Date: 2020-02-14 Test Time: 14:11:47 Pat Name: CHRIS HO Department: Room: Gender: F Cotton Baler: : 1930 Requested By: CONNIE RODRIGUEZ Order Number: [id number] Reading MD: Measurements Intervals [place] Rate: 70 P: 24 [place]: 208 QRS: -16 QRSD: 96 T: 88 QT: 386 QTc: 420 Interpretive Statements SINUS RHYTHM LEFTWARD AXIS CONSIDER LEFT VENTRICULAR HYPERTROPHY QRS(T) CONTOUR ABNORMALITY CONSIDER INFERIOR INFARCT ST & T ABNORMALITY, CONSIDER HIGH LATERAL ISCHEMIA OR LEFT VENTRICULAR STRAIN T ABNORMALITY IN LATERAL LEADS ABNORMAL ECG RI6.01 No previous ECG available for comparison
--- NOTE | 2020-02-14 16:05 | RAD ---
Examination: Ultrasound kidneys HISTORY: History of acute renal failure COMPARISON: None available FINDINGS: The right kidney measures 9.3 x 5.0 x 3.9 cm. The left kidney measures 9.8 x 3.8 x 4.7 cm. Urinary bladder is mildly distended. The prevoid urinary bladder volume is 497 cm3. IMPRESSION: 1. No evidence of hydronephrosis. 2. The prevoid urinary bladder volume is 497 cm3. Electronically signed by: Ruben Farooq MD (02/14/2020 4:03 PM) [id number]
[2020-02-14 16:27] LABS: BILIRUBIN,URINE NEGATIVE (NEG); CLARITY,URINE CLEAR; COLOR,URINE YELLOW; NITRITE,URINE NEGATIVE (NEG); PROTEIN,URINE 100 mg/dL (NEG-TRACE); UROBILINOGEN,URINE 0.2 mg/dL (0.2 mg/dL)
[2020-02-14 16:31] LABS: BACTERIA,URINE MANY /HPF (0-FEW); SQUAMOUS EPITHELIAL CELL,UR FEW /LPF; WBC,URINE >40 /HPF (0-4)
--- NOTE | 2020-02-14 20:15 | NUR ---
ADMISSION NOTE Pt admitted to room 534 from ER. Pt transferred over to bed with 2 assist. Pt is alert and lithuanian speaking. Attempting to locate materials technician phone. Bed alarm on, call light in reach and attempted to explain.
[2020-02-14 20:30] VITALS: BP 173/74
[2020-02-14] MEDS ORDERED: LEVO50TA5 PO (20:55)
[2020-02-14] MEDS ORDERED: OLME40TA16 PO (20:55)
--- NOTE | 2020-02-14 22:00 | NUR ---
NURSING NOTE Chucking [employer] Sawing Machine Operator phone found, able to use it somewhat with pt. Pt is WIYOT and blurred vision, had difficulty understanding what it was for. Able to get some questions answered, other questions were answered by pts daughter, Fide at pts request that we refer to Fide for questions. Fide provided health history information to the best of her ability. Stated that pts other daughter, Niru, is the one who sets up her medications, but she did know the insulin doses. Other medications were taken from the external med hx list. Dr. Stevens called for admission orders. Will monitor.
[2020-02-14 23:00] VITALS: BP 177/78
[2020-02-14] MEDS ORDERED: NITROGLYCERIN SUBLINGUAL 0.4 MG BOTTLE OF 25. SL PRN (23:15)
[2020-02-14] MEDS ORDERED: DEXTROSE 50% 25 GM / 50ML DISP.SYRIN. IV PRN (23:15)
[2020-02-14] MEDS ORDERED: ALBUTEROL SULFATE 2.5 MG/3 ML NEBU. NEB PRN (23:30)
[2020-02-14] MEDS: IV NORMAL SALINE 1000ML BAG 1,000 ML IV SCH (23:48)
[2020-02-15 03:00] VITALS: BP 176/67
[2020-02-15] MEDS ORDERED: C.DIFF MED SCREEN BY RX. MC ONE (04:15)
[2020-02-15] MEDS: LEVOTHYROXINE 50 MCG TABLET PO SCH (06:08)
[2020-02-15 07:05] LABS: BASO % 1 % (0-3); CALCIUM 8.4 mg/dL (8.5-10.1); EOS # 0.2 x10^3/uL (0.0-0.7); EOS % 3 % (0-3); GFR 14.8; HEMATOCRIT 28.9 % (36.0-47.0); HEMOGLOBIN 9.8 g/dL (12.0-15.5); LYMPH # 1.5 x10^3/uL (1.0-4.8); LYMPH % 23 % (24-48); MEAN CORPUSCULAR HEMOGLOBIN 30 pg (25-35); MEAN CORPUSCULAR HGB CONC 34 g/dL (31-37); MEAN CORPUSCULAR VOLUME 88 fL (79-100); MONO # 0.4 x10^3/uL (0.0-1.1); MONO % 7 % (0-9); NEUT # 4.2 x10^3/uL (1.8-7.7); NEUT % 67 % (31-73); PLATELET COUNT 168 x10^3/uL (140-400); POTASSIUM 4.5 mmol/L (3.5-5.1); RED BLOOD COUNT 3.29 x10^6/uL (3.50-5.40); RED CELL DISTRIBUTION WIDTH 13.4 % (11.5-14.5); WHITE BLOOD COUNT 6.3 x10^3/uL (4.0-11.0)
[2020-02-15] MEDS: INSULIN LISPRO 300 UNITS/3 ML VIAL. SQ SCH ×3 (07:26→17:02)
[2020-02-15 07:30] VITALS: BP 183/80
[2020-02-15] MEDS ORDERED: CALCIUM CARB/VIT D3 500/200 TABLET. PO SCH (08:00)
[2020-02-15] MEDS ORDERED: INSULIN LISPRO 300 UNITS/3 ML VIAL. SQ SCH (08:00)
[2020-02-15] MEDS: ISOSORBIDE MONONITRATE ER 30 MG TAB.ER.24H PO SCH (08:14)
[2020-02-15] MEDS: CARVEDILOL 12.5 MG TABLET. PO SCH ×2 (08:19→16:54)
[2020-02-15] MEDS: DOCUSATE SODIUM 100 MG CAPSULE. PO SCH (08:19)
[2020-02-15] MEDS: FERROUS SULFATE 325 MG TABLET. PO SCH (08:19)
[2020-02-15] MEDS: ASPIRIN ENTERIC COATED 81 MG TABLET.DR. PO SCH (08:19)
[2020-02-15] MEDS: PREGABALIN 50 MG CAPSULE PO SCH ×2 (08:20→21:18)
[2020-02-15] MEDS: DICLOFENAC SODIUM 1% TOPICAL GEL 100GM TUBE. TP SCH ×5 (08:20→23:51)
[2020-02-15] MEDS: LOSARTAN POTASSIUM 50 MG TABLET. PO SCH (08:20)
[2020-02-15] MEDS: CLOPIDOGREL BISULFATE 75 MG TABLET PO SCH (08:20)
[2020-02-15] MEDS ORDERED: BUMETANIDE 1 MG TABLET. PO SCH (09:00)
[2020-02-15] MEDS ORDERED: FAMOTIDINE 20 MG TABLET. PO PRN (09:00)
[2020-02-15 11:00] VITALS: BP 154/63
--- NOTE | 2020-02-15 11:19 | PDOC ---
Provider Note Provider Note H&P dictated #[id number] Justicifation of Admission Dx: Justifications for Admission: Justification of Admission Dx: Yes XENA MALAGON MD Feb 15, 2020 11:19
--- NOTE | 2020-02-15 11:30 | HP ---
ADMIT DATE: HISTORY OF PRESENT ILLNESS: This 89-year-old female who has been admitted to this institution several times in the past, started having dizziness, weakness and low blood pressure at home. Family did hold blood pressure medication at home, but she continued to be dizzy and because of that, she was brought to the Emergency Room. In the Emergency Room, her BUN was 87 and creatinine was 3.7. Her baseline creatinine is somewhere between 1.5 and 2. Because of the acute renal failure with CKD 3 in the setting of chronic systolic congestive heart failure, the patient was admitted for further evaluation and management. REVIEW OF SYSTEMS: At present time, the patient still feels weak, but she is slightly better. She was started on IV fluids yesterday. She denies any cold, cough, congestion, chest pain, abdominal pain, nausea, vomiting and diarrhea. She was also recently started on Keflex for a left heel and left foot wound. She denies any pain. Cancer Registrar is the patient's family member. Other systems reviewed and are negative. PAST MEDICAL HISTORY: The patient has a history of coronary artery disease. She had acute non-ST elevation myocardial infarction in 04/2019. She has coronary artery disease, 3-vessel disease, hypertension, hyperlipidemia, chronic kidney disease stage 3 to 4, insulin-dependent diabetes, recurrent UTI, hypothyroidism. PAST SURGICAL HISTORY: She has a history of breast cancer and left mastectomy, cardiac catheterization and a hip surgery. ALLERGIES: None known any. MEDICATIONS: Reviewed and reconciled. SOCIAL HISTORY: No history of smoking, alcoholism or drug abuse. FAMILY HISTORY: Positive for diabetes and heart disease. PHYSICAL EXAMINATION: VITAL SIGNS: Temperature 98.2, pulse 71 per minute, respirations 20 per minute, blood pressure 165/70 on admission. GENERAL: The patient is an elderly female who is alert, oriented, chronically ill and not in acute distress HEENT: Pupils reacting to light. Conjunctivae pale. Sclerae muddy. HEENT unremarkable. NECK: Supple. JVP normal. No thyromegaly. Trachea midline. LUNGS: Decreased breath sounds at bases. No wheezing. No significant rales. CARDIOVASCULAR: S1, S2 regular. ABDOMEN: Soft, nontender, no guarding, no rigidity. Bowel sounds present. EXTREMITIES: No edema. SKIN: The patient has a left heel wound and a left foot wound, pictures reviewed. CENTRAL NERVOUS SYSTEM: Alert and oriented, generalized weakness. LABORATORY FINDINGS: Sodium 138, potassium 4.7, BUN 83, creatinine 3.7, calcium 7.9. AST 14, ALT 14, albumin 3, total protein 6.8. Troponin less than 0.017. Magnesium 2.3. WBC count 5.9 and hemoglobin 9.3 on admission. On 02/15/2020, BUN has decreased to 74, creatinine 3, calcium 8.4, blood sugars have been running low from 60-68. Urinalysis is not significant. Renal sonogram shows no hydronephrosis. Prevoid urinary bladder volume is 497. Chest x-ray: Mild bibasilar lung airspace opacities, likely atelectasis or infiltrates. IMPRESSION: 1. Acute renal failure with chronic kidney disease 3. 2. Left heel and left foot wounds. 3. Chronic systolic congestive heart failure. 4. Coronary artery disease with 3-vessel coronary artery disease. 5. Diabetes mellitus type 2 with hypoglycemia. 6. Pulmonary hypertension. 7. Hypertension, now the blood pressure is higher, but at home, it was low. 8. Hyperlipidemia. 9. History of breast cancer with left mastectomy. PLAN: Consult Dr. Palacio for nephrology evaluation and management. Consult Dr. Ernandez for wound care evaluation and management. The patient was started on Keflex at home about 3 days ago, so we will continue that. The patient was given 1 dose of Bumex today. She is on Bumex twice daily at home, so I will hold it for today and maybe considering restart it at a low dose tomorrow. I will hold insulin at this time because of the hypoglycemia. For details, please refer to the orders. XENA MALAGON MD DR: LILI/liang JOB#: [id number] / [id number]
[2020-02-15] MEDS: IV NORMAL SALINE 1000ML BAG 1,000 ML IV SCH (12:11)
[2020-02-15] MEDS: CEPHALEXIN 250 MG CAPSULE. PO SCH ×2 (13:00→21:17)
[2020-02-15 15:00] VITALS: BP 154/70
[2020-02-15 19:32] VITALS: BP 165/64
--- NOTE | 2020-02-15 20:40 | CONS ---
DATE OF CONSULTATION: REQUESTING PHYSICIAN: Josr Stevens M.D. REASON FOR CONSULTATION: Renal failure, [id number]. HISTORY OF PRESENT ILLNESS: This is an 89-year-old female with history of diabetes mellitus, hypertension, and chronic kidney disease stage 3/4. She follows with Dr. Bebe Alonso of our practice. Apparently per the patient's daughter who is at the bedside, patient has declined dialysis. She currently presents with increasing weakness and dizziness. She has chronic congestive cardiomyopathy and is on Bumex b.i.d. dosing at home. This has been on hold, pending assessment of renal function. No nausea, vomiting, diarrhea. No difficulty urination, hesitancy, dribbling. Only recent new medication is Keflex for a left foot wound. PAST MEDICAL HISTORY: Diabetes mellitus, hypertension, chronic kidney disease stage 3/4, coronary artery disease 3-vessel, hyperlipidemia, recurrent urinary tract infections, hypothyroidism, breast carcinoma, status post left mastectomy, hip surgery. ALLERGIES: None are noted. MEDICATIONS: Reviewed per med list and did include Bumex at home. FAMILY HISTORY: Noncontributory for renal disease. History diabetes mellitus and heart disease. SOCIAL HISTORY: The patient resides independently with assistance from family. No tobacco and ethanol use. REVIEW OF SYSTEMS: No headache, sinus problem, nasal drainage, epistaxis, change in vision or hearing. She has had dizziness, weakness. No chest pain, shortness of breath, PND, orthopnea, dyspnea on exertion. No abdominal pain. No nausea, vomiting or diarrhea. No seizures. She has history of breast carcinoma, status post mastectomy. PHYSICAL EXAMINATION: GENERAL APPEARANCE: The patient is awake, conversant. She speaks only Estonian. Her daughter is at the bedside and provides interpretation. HEENT: Sallow complexion, otherwise clear. NECK: No increased JVD. LUNGS: Clear. CARDIAC: Without S3 or rub. ABDOMEN: Soft, nontender, no bruits. EXTREMITIES: Without edema. NEUROLOGIC: Nonfocal, nonlocalized. PSYCHIATRIC: Appears to have appropriate affect. LABORATORY DATA: Hemoglobin 9.8, hematocrit 28.9, white count 6.3. Sodium 144, potassium 4.5, chloride 112, CO2 of 20, BUN 74, creatinine 3, glomerular filtration rate is 14.8. Laboratory yesterday was creatinine 3.7, glomerular filtration rate 11.6. IMPRESSION: chronic kidney disease stage 3/4. Likely stage 4. Current setting of diabetes mellitus and hypertension. Acute exacerbation, likely due to reduced intravascular volume in setting of diuresis and likely poor reduced oral intake. DISCUSSION AND RECOMMENDATIONS: 1. Isotonic saline as you are doing for rehydration. 2. Trend labs. 3. Again, discussed with the patient through her daughter and she continues to decline dialysis if she remains in end-stage renal disease range. It is promising however that her renal function has improved since admission. We will continue to monitor. HU CHARLTON MD DR: CIARAN/liang JOB#: [id number] / [id number]
[2020-02-15] MEDS ORDERED: INSULIN GLARGINE SYRINGE. SQ SCH (21:00)
[2020-02-15] MEDS: LACTOBACILLUS RHAMNOSUS GG 1 CAPSULE. PO SCH (21:18)
[2020-02-15] MEDS: ATORVASTATIN CALCIUM 20 MG TABLET PO SCH (21:18)
[2020-02-15 23:00] VITALS: BP 189/66
[2020-02-15] MEDS ORDERED: hydrALAZINE 20 MG/ML VIAL. IVP PRN (23:45)
[2020-02-16 03:21] VITALS: BP 152/52
[2020-02-16] MEDS: LEVOTHYROXINE 50 MCG TABLET PO SCH (06:30)
[2020-02-16] MEDS: IV NORMAL SALINE 1000ML BAG 1,000 ML IV SCH ×2 (06:32→16:23)
[2020-02-16 07:00] VITALS: BP 136/64
[2020-02-16 07:40] LABS: BASO % 0 % (0-3); EOS # 0.1 x10^3/uL (0.0-0.7); EOS % 1 % (0-3); HEMATOCRIT 27.9 % (36.0-47.0); HEMOGLOBIN 9.5 g/dL (12.0-15.5); LYMPH # 1.1 x10^3/uL (1.0-4.8); LYMPH % 17 % (24-48); MEAN CORPUSCULAR HEMOGLOBIN 30 pg (25-35); MEAN CORPUSCULAR HGB CONC 34 g/dL (31-37); MEAN CORPUSCULAR VOLUME 87 fL (79-100); MONO # 0.3 x10^3/uL (0.0-1.1); MONO % 4 % (0-9); NEUT # 4.8 x10^3/uL (1.8-7.7); NEUT % 77 % (31-73); PLATELET COUNT 156 x10^3/uL (140-400); RED BLOOD COUNT 3.19 x10^6/uL (3.50-5.40); RED CELL DISTRIBUTION WIDTH 13.5 % (11.5-14.5); WHITE BLOOD COUNT 6.2 x10^3/uL (4.0-11.0)
[2020-02-16 07:51] LABS: ALBUMIN 2.6 g/dL (3.4-5.0); ALBUMIN/GLOBULIN RATIO 0.6 (1.0-1.7); CALCIUM 7.7 mg/dL (8.5-10.1); CREATININE 2.6 mg/dL (0.6-1.0); GFR 17.4; POTASSIUM 4.7 mmol/L (3.5-5.1); TOTAL BILIRUBIN 0.3 mg/dL (0.2-1.0); TOTAL PROTEIN 6.7 g/dL (6.4-8.2)
[2020-02-16] MEDS: DICLOFENAC SODIUM 1% TOPICAL GEL 100GM TUBE. TP SCH ×4 (09:00→21:00)
--- NOTE | 2020-02-16 09:48 | PDOC ---
IM PROGRESS NOTES- Subjective Subjective Patient is complaining of epigastric pain. Objective Vitals/I&O Vital Signs Date Time Temp Pulse Resp B/P (MAP) Pulse Ox O2 Delivery O2 Flow Rate FiO2 02/16/20 03:21 98.2 75 16 152/52 (85) 93 Room Air 98.2 I & O 02/15/20 02/15/20 02/16/20 15:00 23:00 07:00 Intake Total 640 ml 1000 ml Output Total 150 ml 1100 ml Balance 490 ml -100 ml Physical Exam Physical Exam General appearance - alert, chronically ill appearing, and in no distress Mental Status - alert, oriented Chest -decreased breath sounds at bases Heart - S1 and S2 normal Abdomen - soft, non tender, no guarding no rigidity Neurological - alert and oriented Musculoskeletal -generalized weakness Extremities - no pedal edema Labs Laboratory Tests Test 02/15/20 11:31 02/15/20 16:54 02/15/20 21:22 02/16/20 06:40 Glucose (Fingerstick) 207 mg/dL (70-99) H 203 mg/dL (70-99) H 241 mg/dL (70-99) H White Blood Count 6.2 x10^3/uL (4.0-11.0) Red Blood Count 3.19 x10^6/uL (3.50-5.40) L Hemoglobin 9.5 g/dL (12.0-15.5) L Hematocrit 27.9 % (36.0-47.0) L Mean Corpuscular Volume 87 fL (79-100) Mean Corpuscular Hemoglobin 30 pg (25-35) Mean Corpuscular Hemoglobin Concent 34 g/dL (31-37) Red Cell Distribution Width 13.5 % (11.5-14.5) Platelet Count 156 x10^3/uL (140-400) Neutrophils (%) (Auto) 77 % (31-73) H Lymphocytes (%) (Auto) 17 % (24-48) L Monocytes (%) (Auto) 4 % (0-9) Eosinophils (%) (Auto) 1 % (0-3) Basophils (%) (Auto) 0 % (0-3) Neutrophils # (Auto) 4.8 x10^3/uL (1.8-7.7) Lymphocytes # (Auto) 1.1 x10^3/uL (1.0-4.8) Monocytes # (Auto) 0.3 x10^3/uL (0.0-1.1) Eosinophils # (Auto) 0.1 x10^3/uL (0.0-0.7) Basophils # (Auto) 0.0 x10^3/uL (0.0-0.2) Sodium Level 142 mmol/L (136-145) Potassium Level 4.7 mmol/L (3.5-5.1) Chloride Level 110 mmol/L (98-107) H Carbon Dioxide Level 18 mmol/L (21-32) L Anion Gap 14 (6-14) Blood Urea Nitrogen 70 mg/dL (7-20) H Creatinine 2.6 mg/dL (0.6-1.0) H Estimated GFR (Cockcroft-Gault) 17.4 BUN/Creatinine Ratio 27 (6-20) H Glucose Level 280 mg/dL (70-99) H Calcium Level 7.7 mg/dL (8.5-10.1) L Total Bilirubin 0.3 mg/dL (0.2-1.0) Aspartate Amino Transferase (AST) 15 U/L (15-37) Alanine Aminotransferase (ALT) 13 U/L (14-59) L Alkaline Phosphatase 130 U/L (46-116) H Total Protein 6.7 g/dL (6.4-8.2) Albumin 2.6 g/dL (3.4-5.0) L Albumin/Globulin Ratio 0.6 (1.0-1.7) L Test 02/16/20 08:14 Glucose (Fingerstick) 256 mg/dL (70-99) H Laboratory Tests 02/16/20 06:40 Laboratory Tests 02/16/20 06:40 Meds Current Medications Medications (Trade) Dose Ordered Sig/Kyle Route PRN Reason Start Time Stop Time Status Last Admin Dose Admin Atorvastatin Calcium (Lipitor) 20 mg QHS PO 02/15/20 21:00 02/15/20 21:18 Cephalexin HCl (Keflex) 500 mg BID PO 02/15/20 13:00 02/15/20 21:17 Lactobacillus Rhamnosus (Culturelle) 1 cap BID PO 02/15/20 21:00 02/15/20 21:18 Hydralazine HCl (Apresoline Inj) 10 mg PRN Q4HRS PRN IVP FOR SBP > 160 02/15/20 23:45 02/16/20 00:39 Assessment Assessment 1. Acute renal failure with chronic kidney disease 3. 2. Left heel and left foot wounds. 3. Chronic systolic congestive heart failure. 4. Coronary artery disease with 3-vessel coronary artery disease. 5. Diabetes mellitus type 2 with hypoglycemia. 6. Pulmonary hypertension. 7. Hypertension, now the blood pressure is higher, but at home, it was low. 8. Hyperlipidemia. 9. History of breast cancer with left mastectomy. PLAN: Consult Dr. Palacio for nephrology evaluation and management. Consult Dr. Ernandez for wound care evaluation and management. The patient was started on Keflex at home about 3 days ago, so we will continue that. The patient was given 1 dose of Bumex today. She is on Bumex twice daily at home, so I will hold it for today and maybe considering restart it at a low dose tomorrow. I will hold insulin at this time because of the hypoglycemia. For details, please refer to the orders. Acute renal failure with CKD 3-creatinine has decreased to 2.6. Decrease IV fluids. Accelerated hypertension-started on IV hydralazine resume Bumex in a.m. only Diabetes mellitus type 2 with both hyperglycemia and hypoglycemia-restart Lantus at 12 units at bedtime. Continue to hold 3 times a day scheduled Humalog. Low- dose sliding scale insulin. Epigastric pain-cussed with staff. Will give medications for nausea or constipation if needed. Continue Pepcid. Discontinue ferrous sulfate Plan Plan For more details regarding further plans, please refer to the orders. Justicifation of Admission Dx: Justifications for Admission: Justification of Admission Dx: Yes XENA MALAGON MD Feb 16, 2020 09:47
[2020-02-16] MEDS: DOCUSATE SODIUM 100 MG CAPSULE. PO SCH (10:35)
[2020-02-16] MEDS: FERROUS SULFATE 325 MG TABLET. PO SCH (10:35)
[2020-02-16] MEDS: PREGABALIN 50 MG CAPSULE PO SCH ×2 (10:35→21:10)
[2020-02-16] MEDS: INSULIN LISPRO 300 UNITS/3 ML VIAL. SQ SCH ×3 (10:35→17:11)
[2020-02-16] MEDS: CLOPIDOGREL BISULFATE 75 MG TABLET PO SCH (10:35)
[2020-02-16] MEDS: CEPHALEXIN 250 MG CAPSULE. PO SCH ×2 (10:36→21:11)
[2020-02-16] MEDS: ASPIRIN ENTERIC COATED 81 MG TABLET.DR. PO SCH (10:36)
[2020-02-16] MEDS: LACTOBACILLUS RHAMNOSUS GG 1 CAPSULE. PO SCH ×2 (10:36→21:10)
[2020-02-16] MEDS: BUMETANIDE 1 MG TABLET. PO SCH (10:36)
[2020-02-16] MEDS: CARVEDILOL 12.5 MG TABLET. PO SCH ×2 (10:36→17:06)
[2020-02-16] MEDS: ISOSORBIDE MONONITRATE ER 30 MG TAB.ER.24H PO SCH (10:37)
[2020-02-16] MEDS: LOSARTAN POTASSIUM 50 MG TABLET. PO SCH (10:37)
[2020-02-16] MEDS: ACETAMINOPHEN 325 MG TABLET. PO PRN (10:46)
[2020-02-16 11:00] VITALS: BP 142/52
[2020-02-16 15:00] VITALS: BP 151/61
[2020-02-16] MEDS: POLYETHYLENE GLYCOL 3350 17 GM PACKET. PO SCH (15:34)
[2020-02-16 19:00] VITALS: BP 150/63
[2020-02-16] MEDS ORDERED: INSULIN GLARGINE SYRINGE. SQ SCH (21:00)
[2020-02-16] MEDS: ATORVASTATIN CALCIUM 20 MG TABLET PO SCH (21:10)
[2020-02-16 23:00] VITALS: BP 190/82
[2020-02-17 03:45] VITALS: BP 185/76
[2020-02-17] MEDS: LEVOTHYROXINE 50 MCG TABLET PO SCH (06:13)
[2020-02-17 06:48] LABS: ALBUMIN 2.8 g/dL (3.4-5.0); ALBUMIN/GLOBULIN RATIO 0.8 (1.0-1.7); CREATININE 2.5 mg/dL (0.6-1.0); GFR 18.2; POTASSIUM 5.3 mmol/L (3.5-5.1); TOTAL BILIRUBIN 0.2 mg/dL (0.2-1.0); TOTAL PROTEIN 6.3 g/dL (6.4-8.2)
[2020-02-17 07:00] VITALS: BP 200/87
--- NOTE | 2020-02-17 07:05 | NUR ---
IP: Pt has a hx of (R) Klebsiella with ESBL in urine on 04/09/19. Pt current urine is + with culture pending. Pt to be in contact precautions until culture is verified.
--- NOTE | 2020-02-17 08:40 | PDOC ---
PROGRESS NOTES Date of Service: DATE: 02/17/20 TIME: 08:38 Subjective Subjective c/o rt upper quadrent pain Objective Objective Vital Signs Date Time Temp Pulse Resp B/P (MAP) Pulse Ox O2 Delivery O2 Flow Rate FiO2 02/17/20 03:45 97.8 73 18 185/76 (112) 93 Room Air 97.8 Intake and Output 02/17/20 07:00 Intake Total 1120 ml Balance 1120 ml Intake Oral 120 ml IV Total 1000 ml # Voids 4 # Bowel Movements 2 Physical Exam Abdomen: Soft Heart: Regular rate Extremities: No clubbing General: Alert HEENT: Atraumatic Lungs: Clear to auscultation MUSCULOSKELETAL: No joint tenderness, No deformity Neuro: Normal speech Psych/Mental Status: Mental status NL Skin: No significant lesion (lt foot ulcer) Diagnosis Problem List Problems Medical Problems: (1) Hyperuricemia Status: Acute (2) Kidney failure Status: Acute (3) Weakness Status: Acute Assessment Assessment abd pain r/o gall stones. 1. Acute renal failure with chronic kidney disease 3. 2. Left heel and left foot wounds. 3. Chronic systolic congestive heart failure. 4. Coronary artery disease with 3-vessel coronary artery disease. 5. Diabetes mellitus type 2 with hypoglycemia. 6. Pulmonary hypertension. 7. Hypertension, now the blood pressure is higher, but at home, it was low. 8. Hyperlipidemia. 9. History of breast cancer with left mastectomy. PLAN: sono gall bladder. kidney improved to base line can d/c home later today if gall bladder ok. cr 2.[address] Palacio for nephrology evaluation and management. Consult Dr. Ernandez for wound care evaluation and management. The patient was started on Keflex at home about 3 days ago, so we will continue that. The patient was given 1 dose of Bumex today. She is on Bumex twice daily at home, so I will hold it for today and maybe considering restart it at a low dose tomorrow. I will hold insulin at this time because of the hypoglycemia. For details, please refer to the orders. Acute renal failure with CKD 3-creatinine has decreased to 2.6. Decrease IV fluids. Accelerated hypertension-started on IV hydralazine resume Bumex in a.m. only Diabetes mellitus type 2 with both hyperglycemia and hypoglycemia-restart Lantus at 12 units at bedtime. Continue to hold 3 times a day scheduled Humalog. Low- dose sliding scale insulin. Epigastric pain-cussed with staff. Will give medications for nausea or constipation if needed. Continue Pepcid. Discontinue ferrous sulfate Plan Plan of Care Problems Medical Problems: (1) Hyperuricemia Status: Acute (2) Kidney failure Status: Acute (3) Weakness Status: Acute Comment Review of Relevant I have reviewed the following items kathleen (where applicable) has been applied. Labs Laboratory Tests Test 02/16/20 12:26 02/16/20 16:34 02/17/20 05:55 02/17/20 07:52 Glucose (Fingerstick) 311 mg/dL (70-99) 173 mg/dL (70-99) 304 mg/dL (70-99) Sodium Level 141 mmol/L (136-145) Potassium Level 5.3 mmol/L (3.5-5.1) Chloride Level 111 mmol/L (98-107) Carbon Dioxide Level 17 mmol/L (21-32) Anion Gap 13 (6-14) Blood Urea Nitrogen 68 mg/dL (7-20) Creatinine 2.5 mg/dL (0.6-1.0) Estimated GFR (Cockcroft-Gault) 18.2 BUN/Creatinine Ratio 27 (6-20) Glucose Level 288 mg/dL (70-99) Calcium Level 8.0 mg/dL (8.5-10.1) Total Bilirubin 0.2 mg/dL (0.2-1.0) Aspartate Amino Transf (AST/SGOT) 37 U/L (15-37) Alanine Aminotransferase (ALT/SGPT) 19 U/L (14-59) Alkaline Phosphatase 135 U/L (46-116) Total Protein 6.3 g/dL (6.4-8.2) Albumin 2.8 g/dL (3.4-5.0) Albumin/Globulin Ratio 0.8 (1.0-1.7) Medications Current Medications Bumetanide (Bumex) 0.5 mg DAILY PO Last administered on 02/16/20at 10:36; Start 02/16/20 at 10:00 Insulin Glargine (Lantus Syringe) 12 unit QHS SQ Last administered on 02/16/20at 21:17; Start 02/16/20 at 21:00 Levothyroxine Sodium (Synthroid) 100 mcg Fr PO ; Start 02/21/20 at 06:00 Polyethylene Glycol (miraLAX PACKET) 17 gm DAILY PO Last administered on 02/16/20at 15:34; Start 02/16/20 at 16:00 Vitals/I & O Vital Sign - Last 24 Hours 02/16/20 02/16/20 02/16/20 02/16/20 10:36 10:37 10:37 11:00 Temp 98.1 98.1 Pulse 73 73 73 66 Resp 16 B/P (MAP) 136/64 136/64 136/64 142/52 (82) Pulse Ox 96 O2 Delivery Room Air 02/16/20 02/16/20 02/16/20 02/16/20 15:00 17:06 19:00 20:00 Temp 97.7 97.4 97.7 97.4 Pulse 64 64 64 Resp 16 18 B/P (MAP) 151/61 (91) 151/61 150/63 (92) Pulse Ox 95 96 O2 Delivery Room Air Room Air Room Air 02/16/20 02/17/20 23:00 03:45 Temp 97.7 97.8 97.7 97.8 Pulse 71 73 Resp 18 18 B/P (MAP) 190/82 (118) 185/76 (112) Pulse Ox 94 93 O2 Delivery Room Air Room Air Intake and Output 02/16/20 02/16/20 02/17/20 15:00 23:00 07:00 Intake Total 120 ml 1000 ml Balance 120 ml 1000 ml Justicifation of Admission Dx: Justifications for Admission: Justification of Admission Dx: Yes JAMES CORCORAN MD Feb 17, 2020 08:40
[2020-02-17] MEDS ORDERED: CEPH250C PO (08:43)
[2020-02-17] MEDS: CARVEDILOL 12.5 MG TABLET. PO SCH ×2 (08:55→17:33)
[2020-02-17] MEDS: CEPHALEXIN 250 MG CAPSULE. PO SCH (08:55)
[2020-02-17] MEDS: ASPIRIN ENTERIC COATED 81 MG TABLET.DR. PO SCH (08:55)
[2020-02-17] MEDS: LOSARTAN POTASSIUM 50 MG TABLET. PO SCH (08:56)
[2020-02-17] MEDS: LACTOBACILLUS RHAMNOSUS GG 1 CAPSULE. PO SCH (08:56)
[2020-02-17] MEDS: PREGABALIN 50 MG CAPSULE PO SCH (08:56)
[2020-02-17] MEDS: DOCUSATE SODIUM 100 MG CAPSULE. PO SCH (08:56)
[2020-02-17] MEDS: ACETAMINOPHEN 325 MG TABLET. PO PRN (08:56)
[2020-02-17] MEDS: CLOPIDOGREL BISULFATE 75 MG TABLET PO SCH (08:57)
[2020-02-17] MEDS: BUMETANIDE 1 MG TABLET. PO SCH (08:57)
[2020-02-17] MEDS: ISOSORBIDE MONONITRATE ER 30 MG TAB.ER.24H PO SCH (08:57)
[2020-02-17] MEDS: POLYETHYLENE GLYCOL 3350 17 GM PACKET. PO SCH (08:57)
[2020-02-17] MEDS: INSULIN LISPRO 300 UNITS/3 ML VIAL. SQ SCH ×3 (09:02→17:00)
[2020-02-17] MEDS: DICLOFENAC SODIUM 1% TOPICAL GEL 100GM TUBE. TP SCH ×3 (09:03→17:33)
[2020-02-17 11:00] VITALS: BP 151/66
--- NOTE | 2020-02-17 11:00 | NUR ---
Wound Care Wound Type/Assessment: patient has a left lateral DFU to a [facility], the dressing was removed, the wound was cleaned, measured and [facility], debrided the callus (see Delaney's progress note), she ordered to apply collagen with a contact layer with a foam dressing at this time. Extra dressings left with the patient. Treatment Recommendations/Plan: Recommendations of a contact layer with gauze and tape, change every 2-3 days. Education provided: See Delaney's note regarding f/u Wound Care will continue to f/u for changes.
[2020-02-17] MEDS: IV NORMAL SALINE 1000ML BAG 1,000 ML IV SCH (11:56)
--- NOTE | 2020-02-17 14:13 | PDOC ---
DATE OF SERVICE DATE: 02/17/20 TIME: 14:06 SUBJECTIVE ROS Stable, sleeping in the recliner, family at bedside No new concerns voiced by family OBJECTIVE Vital Signs Vital Signs Date Time Temp Pulse Resp B/P (MAP) Pulse Ox O2 Delivery O2 Flow Rate FiO2 02/17/20 11:00 98.1 67 18 151/66 (94) 94 Room Air 98.1 I & 0 Intake and Output 02/17/20 07:00 Intake Total 1120 ml Balance 1120 ml Intake Oral 120 ml IV Total 1000 ml # Voids 4 # Bowel Movements 2 PHYSICAL EXAM Physical Exam GEN: NAD HEENT: patient is blind in the left eye, NECK: Supple. CARDIOVASCULAR: S1, S2. No murmurs. LUNGS: CTA, Non labored ABDOMEN: Soft, bowel sounds present No Simpson, No CVA or SP tenderness EXTREMITIES: no edema. previous amputation of a couple of toes NEURO- Grossly normal SKIN - No rash DIAGNOSIS/ASSESSMENT Assessment & Plan IGOR -Pre-renal ,improving 3.7-->2.5 Stable renal function Hyperkalemia- mild CKD stage 3/4 - baseline 1.8-2.1 She wont do HD if /when indicated UA ? UTI, Hx of recurrent UTI Per Primary HTN - Uncontrolled Adrenals Normal on CT Renal Duplex in 2017- No e/o significant ALVARADO Hx of Non-ST elevation myocardial infarction chronic systolic CHF; Echo showed LVEF 30-35% CAD / 3 V Doen pleural effusion- Thoracentesis in the past DM2 COMMENT/RELEVANT DATA Meds Current Medications Medications (Trade) Dose Ordered Sig/Kyle Start Time Stop Time Status Last Admin Dose Admin Acetaminophen (Tylenol) 650 mg PRN Q6HRS PRN 02/14/20 23:15 02/17/20 08:56 650 MG Albuterol Sulfate (Ventolin Neb Soln) 2.5 mg PRN TID PRN 02/14/20 23:30 Aspirin (Ecotrin) 81 mg DAILYWBKFT 02/15/20 08:00 02/17/20 08:55 81 MG Atorvastatin Calcium (Lipitor) 20 mg QHS 02/15/20 21:00 02/16/20 21:10 20 MG Bumetanide (Bumex) 0.5 mg DAILY 02/16/20 10:00 02/17/20 08:57 0.5 MG Calcium/Vitamin D (Oscal D 500mg/ 200uts) 1 tab DAILYWBKFT 02/15/20 08:00 02/15/20 16:24 DC Carvedilol (Coreg) 25 mg BIDWMEALS 02/15/20 08:00 02/17/20 08:55 25 MG Cephalexin HCl (Keflex) 500 mg BID 02/15/20 13:00 02/17/20 08:55 500 MG Clopidogrel Bisulfate (Plavix) 75 mg DAILY 02/15/20 09:00 02/17/20 08:57 75 MG Dextrose (Dextrose 50%-Water Syringe) 12.5 gm PRN Q15MIN PRN 02/14/20 23:15 Diclofenac Sodium (Voltaren) 1 opal QID 02/15/20 09:00 02/17/20 12:56 1 OPAL Docusate Sodium (Colace) 100 mg DAILY 02/15/20 09:00 02/17/20 08:56 100 MG Famotidine (Pepcid) 20 mg PRN DAILY PRN 02/15/20 09:00 02/16/20 10:46 20 MG Ferrous Sulfate (Feosol) 325 mg DAILY 02/15/20 09:00 02/16/20 10:38 DC 02/16/20 10:35 325 MG Hydralazine HCl (Apresoline Inj) 10 mg PRN Q4HRS PRN 02/15/20 23:45 02/16/20 00:39 10 MG Insulin Glargine (Lantus Syringe) 12 unit QHS 02/16/20 21:00 02/16/20 21:17 12 UNIT Insulin Human Lispro (HumaLOG) 15 units TIDWMEALS 02/15/20 08:00 02/15/20 11:18 DC Isosorbide Mononitrate (Imdur) 30 mg DAILY 02/15/20 09:00 02/17/20 08:57 30 MG Lactobacillus Rhamnosus (Culturelle) 1 cap BID 02/15/20 21:00 02/17/20 08:56 1 CAP Levothyroxine Sodium (Synthroid) 100 mcg Fr 02/21/20 06:00 Losartan Potassium (Cozaar) 100 mg DAILY 02/15/20 09:00 02/17/20 08:56 100 MG Nitroglycerin (Nitrostat) 0.4 mg PRN Q5MIN PRN 02/14/20 23:15 Pharmacy Consult (C.diff Med Screen By Rx) 1 each 1X ONCE 02/15/20 04:15 02/15/20 04:16 Cancel Polyethylene Glycol (miraLAX PACKET) 17 gm DAILY 02/16/20 16:00 02/17/20 08:57 17 GM Pregabalin (Lyrica) 50 mg BID 02/15/20 09:00 02/17/20 08:56 50 MG Sodium Chloride 1,000 ml @ 50 mls/hr Q20H 02/14/20 23:30 02/17/20 11:56 50 MLS/HR Lab Laboratory Tests Test 02/16/20 16:34 02/17/20 05:55 02/17/20 07:52 02/17/20 11:42 Glucose (Fingerstick) 173 mg/dL (70-99) 304 mg/dL (70-99) 275 mg/dL (70-99) Sodium Level 141 mmol/L (136-145) Potassium Level 5.3 mmol/L (3.5-5.1) Chloride Level 111 mmol/L (98-107) Carbon Dioxide Level 17 mmol/L (21-32) Anion Gap 13 (6-14) Blood Urea Nitrogen 68 mg/dL (7-20) Creatinine 2.5 mg/dL (0.6-1.0) Estimated GFR (Cockcroft-Gault) 18.2 BUN/Creatinine Ratio 27 (6-20) Glucose Level 288 mg/dL (70-99) Calcium Level 8.0 mg/dL (8.5-10.1) Total Bilirubin 0.2 mg/dL (0.2-1.0) Aspartate Amino Transf (AST/SGOT) 37 U/L (15-37) Alanine Aminotransferase (ALT/SGPT) 19 U/L (14-59) Alkaline Phosphatase 135 U/L (46-116) Total Protein 6.3 g/dL (6.4-8.2) Albumin 2.8 g/dL (3.4-5.0) Albumin/Globulin Ratio 0.8 (1.0-1.7) Results All relevant outside records, renal labs, imaging studies, telemetry/EKG's were reviewed. Justicifation of Admission Dx: Justifications for Admission: Justification of Admission Dx: Yes MAGALY STANLEY MD Feb 17, 2020 14:13
--- NOTE | 2020-02-17 14:23 | NUR ---
KASI following. Reviewed chart and spoke with RN. Pt will likely discharge home today after her ultrasound. KASI requested HH orders from Dr. Mcdonough. [facility]ASI phoned and faxed clinicals to [facility] , , (fax). Patient Choice of Vendor form completed. Pt on room air and oral medications. KASI to follow. Addendum: 02/17/20 at 1616 by MARIZA VILLASEÑOR HH orders obtained from Dr. Mcdonough. KASI phoned and faxed HH orders [facility], , (fax). Susan confirmed orders were received. No additional KASI needs at this time. Addendum: 02/18/20 at 1148 by MARIZA VILLASEÑOR Susan confirmed start of care for this patient.
[2020-02-17 15:00] VITALS: BP 132/62
--- NOTE | 2020-02-17 15:18 | SNU/HH DC ---
DISCHARGE WITH HOME HEALTH DISCHARGE INFORMATION: Discharge Date: Feb 17, 2020 Final Diagnosis: Problems Medical Problems: (1) Hyperuricemia Status: Acute (2) Kidney failure Status: Acute (3) Weakness Status: Acute Condition on Discharge: Stable CODE STATUS: Code Status: Full HOME HEALTH: Face to Face: I certify this patient is under my care and that I, or a nurse practitioner or physician's assistant pastry chef working with me, had a face to face encounter that meets the physician face to face encounter requirements with this patient on []. Medical Complications: CHF RN For Eval/Treatment: Yes Physical Therapy For: Evalulation/Treatment Occupational Therapy For: Evaluation/Treatment Pt Meets Homebound Status: Poor coordination w/ amb. POST DISCHARGE ORDERS: Activity Instructions for Disc: Activity as tolerated Weight Bearing Status after Di: As tolerated Bathing Instructions: No Tub Bath until see DIET AFTER DISCHARGE: Cardiac Wound/Incision Care: Ice to area for comfort, Change dressing, Routine catheter care CHECKS AFTER DISCHARGE: Checks after discharge: Check blood sugar, ac/hs TREATMENT/EQUIPMENT ORDERS: Adaptive Equipment Issued: Walker Discharge Respiratory Equipmen: Oxygen CERTIFICATION STATEMENT: Certification Statement: Certification Statement: Based on the above finding, I certify that this patient is confined to the home and needs intermittent senior care care, physical therapy and/or speech therapy, or continues to need occupational therapy.~ This patient is under my care, and I have initiated the establishment of the plan of care.~ This patient will be followed by myself or a community physician who will periodically review the plan of care. Home Meds Active Scripts Cephalexin (CEPHALEXIN) 250 Mg Capsule, 500 MG PO BID for foot ulcer for 7 Days, #28 CAP Prov:JAMES CORCORAN MD 02/17/20 Aspirin (ASPIRIN EC) 81 Mg Tablet.dr, 81 MG PO DAILYWBKFT for cad for 30 Days, #30 TAB.SR Prov:JAMES CORCORAN MD 04/16/19 Bumetanide (BUMETANIDE) 0.5 Mg Tablet, 0.5 MG PO BID for chf for 30 Days, #60 TAB Prov:JAMES CORCORAN MD 12/04/18 Isosorbide Mononitrate (ISOSORBIDE MONONITRATE ER) 30 Mg Tab.er.24h, 30 MG PO DAILY for 30 Days, TAB 3 Refills Prov:JAMES CORCORAN MD 08/18/16 Atorvastatin Calcium (ATORVASTATIN CALCIUM) 20 Mg Tablet, 20 MG PO QHS for 30 Days, TAB 2 Refills Prov:JAMES CORCORAN MD 08/18/16 Reported Medications Levothyroxine Sodium (LEVOTHYROXINE SODIUM) 50 Mcg Tablet, 50 MCG PO DAILYAC for THYROID SUPPLEMENT, #30 TAB 0 Refills 02/14/20 Olmesartan Medoxomil (Olmesartan Medoxomil) 40 Mg Tablet, 40 MG PO DAILY for htn 02/14/20 Carvedilol (CARVEDILOL) 25 Mg Tablet, 25 MG PO BIDWMEALS for CARDIAC, TAB 04/16/19 Diclofenac Sodium (VOLTAREN) 100 Gm Gel..gram., 1 GM TP QID for PAIN, #100 GM 2 Refills 11/30/18 Levothyroxine Sodium (LEVOTHYROXINE SODIUM) 100 Mcg Tablet, 1 TAB PO QFR for thyroid, #30 TAB 5 Refills 08/30/18 Clopidogrel Bisulfate (CLOPIDOGREL) 75 Mg Tablet, 75 MG PO DAILY for TO PREVENT BLOOD CLOTS, #30 TAB 0 Refills 06/04/18 Pregabalin (LYRICA) 50 Mg Capsule, 1 CAP PO BID for pain, #90 CAP 06/04/18 Famotidine (PEPCID) 40 Mg Tablet, 40 MG PO DAILY PRN for HEARTBURN / GAS, TAB 06/04/18 Ipratropium/Albuterol Sulfate (DUONEB 0.5-3(2.5) MG/3 ML) 3 Ml Ampul.neb, 3 ML NEB PRN TID PRN for SHORTNESS OF BREATH, EACH 06/04/18 Nitroglycerin (NITROGLYCERIN SubLingual) 0.4 Mg Tab.subl, 1 TAB SL UD PRN for prn, #25 TAB 3 Refills 06/04/18 Insulin Lispro (HUMALOG) 100 Unit/1 Ml Cartridge, 15 UNIT SQ TIDWMEALS, EACH 01/21/18 Docusate Sodium (DOCUSATE SODIUM) 100 Mg Capsule, 1 CAP PO DAILY, #30 CAP 01/21/18 Calcium Carbonate/Vitamin D3 (CALCIUM + VITAMIN D TABLET) 1 Each Tablet, 1 EACH PO DAILY for BONES, TAB 01/21/18 Insulin Glargine,Hum.rec.anlog (LANTUS) 100 Unit/1 Ml Vial, 25 UNIT SQ HS for dm, VIAL 07/19/16 Discontinued Reported Medications Ferrous Sulfate (FERROUS SULFATE) 325 Mg Tablet, 325 MG PO DAILY for BLOOD, TAB 11/30/18 JAMES CORCORAN MD Feb 17, 2020 15:18
--- NOTE | 2020-02-17 15:47 | PDOC ---
Provider Note Provider Note Discharge summary dictated.#[id number]. Justicifation of Admission Dx: Justifications for Admission: Justification of Admission Dx: Yes JAMES CORCORAN MD Feb 17, 2020 15:47
--- NOTE | 2020-02-17 15:52 | PDOC2 ---
CONSULT Date of Consult Date of Consult DATE: 02/17/20 TIME: 11:40 Reason for Consult Reason for Consult: Diabetic foot ulcer to the left foot Referring Physician Referring Physician: Dr. Stevens Source Source: Caregiver (Patient lives with her daughter who is at bedside. Patient's granddaughter is also at bedside and acts as a curriculum designer from [place] to [place].), Patient History of Present Illness Reason for Visit: Patient with open ulceration to her lateral left foot. Patient states wound is been present for approximately 1 week. Patient with 40+ year history of diabetes. Patient states that is currently under well control. 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 Past Medical History Cardiovascular: CAD, CHF, HTN, Hyperlipidemia, Other Pulmonary: No pertinent hx CENTRAL NERVOUS SYSTEM: Other GI: Other Heme/Onc: Anemia NOS, Cancer Hepatobiliary: No pertinent hx Psych: Anxiety, Depression Musculoskeletal: Osteoarthritis Rheumatologic: No pertinent hx Infectious disease: Other Renal/: UTI Endocrine: Diabetes Past Surgical History Past Surgical History: Total hip replacement Family History Family History: No Significant, Other Social History Social History Patient lives with her daughter. Patient denies tobacco use, illicit drug use or alcohol use. ALCOHOL: none Drugs: None Lives: with Family Current Problem List Problem List Problems Medical Problems: (1) Hyperuricemia Status: Acute (2) Kidney failure Status: Acute (3) Weakness Status: Acute Current Medications Current Medications Current Medications Sodium Chloride 1,000 ml @ 1,000 mls/hr 1X ONCE IV ; Start 02/14/20 at 15:15; Stop 02/14/20 at 15:52; Status DC Sodium Chloride 1,000 ml @ 125 mls/hr 1X ONCE IV Last administered on 02/14/20at 16:00; Start 02/14/20 at 16:00; Stop 02/14/20 at 23:59; Status DC Sodium Chloride 1,000 ml @ 50 mls/hr Q20H IV Last administered on 02/17/20at 11:56; Start 02/14/20 at 23:30 Insulin Human Lispro (HumaLOG) 0-7 UNITS TIDWMEALS SQ Last administered on 02/17/20at 11:58; Start 02/15/20 at 08:00 Dextrose (Dextrose 50%-Water Syringe) 12.5 gm PRN Q15MIN PRN IV SEE COMMENTS; Start 02/14/20 at 23:15 Acetaminophen (Tylenol) 650 mg PRN Q6HRS PRN PO MILD PAIN / TEMP > 100.3'F Last administered on 02/17/20 08:56; Start 02/14/20 at 23:15 Aspirin (Ecotrin) 81 mg DAILYWBKFT PO Last administered on 02/17/20at 08:55; Start 02/15/20 at 08:00 Atorvastatin Calcium (Lipitor) 20 mg QHS PO Last administered on 02/16/20at 21:10; Start 02/15/20 at 21:00 Clopidogrel Bisulfate (Plavix) 75 mg DAILY PO Last administered on 02/17/20 08:57; Start 02/15/20 at 09:00 Diclofenac Sodium (Voltaren) 1 opal QID TP Last administered on 02/17/20 12:56; Start 02/15/20 at 09:00 Docusate Sodium (Colace) 100 mg DAILY PO Last administered on 02/17/20 08:56; Start 02/15/20 at 09:00 Ferrous Sulfate (Feosol) 325 mg DAILY PO Last administered on 02/16/20at 10:35; Start 02/15/20 at 09:00; Stop 02/16/20 at 10:38; Status DC Albuterol Sulfate (Ventolin Neb Soln) 2.5 mg PRN TID PRN NEB SHORTNESS OF BREATH; Start 02/14/20 at 23:30 Isosorbide Mononitrate (Imdur) 30 mg DAILY PO Last administered on 02/17/20 08:57; Start 02/15/20 at 09:00 Levothyroxine Sodium (Synthroid) 50 mcg [id number] PO Last administered on 02/17/20 06:13; Start 02/15/20 at 06:00 Levothyroxine Sodium (Synthroid) 100 mcg Fr PO ; Start 02/21/20 at 06:00 Nitroglycerin (Nitrostat) 0.4 mg PRN Q5MIN PRN SL PRN CHEST PAIN; Start 02/14/20 at 23:15 Pregabalin (Lyrica) 50 mg BID PO Last administered on 8/17/20at 08:56; Start 02/15/20 at 09:00 Bumetanide (Bumex) 0.5 mg [id number] PO Last administered on 02/15/20at 09:34; Start 02/15/20 at 09:00; Stop 02/15/20 at 11:18; Status DC Calcium/Vitamin D (Oscal D 500mg/ 200uts) 1 tab DAILYWBKFT PO ; Start 02/15/20 at 08:00; Stop 02/15/20 at 16:24; Status DC Carvedilol (Coreg) 25 mg BIDWMEALS PO Last administered on 02/17/20at 08:55; Start 02/15/20 at 08:00 Famotidine (Pepcid) 20 mg PRN DAILY PRN PO HEARTBURN / GAS Last administered on 02/16/20at 10:46; Start 02/15/20 at 09:00 Insulin Human Lispro (HumaLOG) 15 units TIDWMEALS SQ ; Start 02/15/20 at 08:00; Stop 02/15/20 at 11:18; Status DC Losartan Potassium (Cozaar) 100 mg DAILY PO Last administered on 02/17/20at 08:56; Start 02/15/20 at 09:00 Insulin Glargine (Lantus Syringe) 25 unit HS SQ ; Start 02/15/20 at 21:00; Stop 02/15/20 at 11:18; Status DC Pharmacy Consult (C.diff Med Screen By Rx) 1 each 1X ONCE [facility] ; Start 02/15/20 at 04:15; Stop 02/15/20 at 04:16; Status Cancel Cephalexin HCl (Keflex) 500 mg BID PO Last administered on 02/17/20at 08:55; Start 02/15/20 at 13:00 Lactobacillus Rhamnosus (Culturelle) 1 cap BID PO Last administered on 02/17/20at 08:56; Start 02/15/20 at 21:00 Hydralazine HCl (Apresoline Inj) 10 mg PRN Q4HRS PRN IVP FOR SBP > 160 Last administered on 02/16/20at 00:39; Start 02/15/20 at 23:45 Insulin Glargine (Lantus Syringe) 12 unit QHS SQ Last administered on 02/16/20at 21:17; Start 02/16/20 at 21:00 Bumetanide (Bumex) 0.5 mg DAILY PO Last administered on 02/17/20at 08:57; Start 02/16/20 at 10:00 Polyethylene Glycol (miraLAX PACKET) 17 gm DAILY PO Last administered on 02/17/20at 08:57; Start 02/16/20 at 16:00 Active Scripts Active Cephalexin 250 Mg Capsule 500 Mg PO BID 7 Days Aspirin Ec (Aspirin) 81 Mg Tablet.dr 81 Mg PO DAILYWBKFT 30 Days Bumetanide 0.5 Mg Tablet 0.5 Mg PO BID 30 Days Isosorbide Mononitrate Er (Isosorbide Mononitrate) 30 Mg Tab.er.24h 30 Mg PO DAILY 30 Days Atorvastatin Calcium 20 Mg Tablet 20 Mg PO QHS 30 Days Reported Levothyroxine Sodium 50 Mcg Tablet 50 Mcg PO DAILYAC Olmesartan Medoxomil 40 Mg Tablet 40 Mg PO DAILY Carvedilol 25 Mg Tablet 25 Mg PO BIDWMEALS Voltaren (Diclofenac Sodium) 100 Gm Gel..gram. 1 Gm TP QID Levothyroxine Sodium 100 Mcg Tablet 1 Tab PO QFR Clopidogrel (Clopidogrel Bisulfate) 75 Mg Tablet 75 Mg PO DAILY Lyrica (Pregabalin) 50 Mg Capsule 1 Cap PO BID Pepcid (Famotidine) 40 Mg Tablet 40 Mg PO DAILY PRN Duoneb 0.5-3(2.5) Mg/3 Ml (Albuterol/Ipratropium) 3 Ml Ampul.neb 3 Ml NEB PRN TID PRN NITROGLYCERIN SubLingual (Nitroglycerin) 0.4 Mg Tab.subl 1 Tab SL UD PRN Humalog (Insulin Lispro) 100 Unit/1 Ml Cartridge 15 Unit SQ TIDWMEALS Docusate Sodium 100 Mg Capsule 1 Cap PO DAILY Calcium + Vitamin D Tablet (Calcium Carbonate/Vitamin D3) 1 Each Tablet 1 Each PO DAILY Lantus (Insulin Glargine,Hum.rec.anlog) 100 Unit/1 Ml Vial 25 Unit SQ HS Allergies Allergies: Coded Allergies: I S O L A T I O N *CONTACT* (Verified Allergy, Unknown, 04/15/19) ESBL No Known Medication Allergies (Verified Allergy, Unknown, 08/01/18) ROS General: No: Chills, Fatigue PSYCHOLOGICAL ROS: No: Anxiety, Depression, Disorientation Respiratory: No: Cough, Orthopnea, Shortness of breath Cardiovascular: No Chest Pain, No Edema Gastrointestinal: No Nausea, No Vomiting, No Diarrhea, No Constipation Physical Exam General: Alert, Oriented X3, Cooperative, No acute distress Lungs: Normal air movement, Other (Patient on room air not requiring supplemental oxygen) Abdomen: Soft, No tenderness Skin: No rashes, Other (Patient with 0.8 x 1.5 x 0.1 cm open ulceration to the lateral left foot. Wound is at the most lateral aspect of scar from previous TMA . Wound bed 100% granulation. Edges with significant callus formation. No surrounding erythema or edema present. Moderate serosanguineous drainage noted on previous dressing. Following patient consent callus debrided with curette. Patient denied painful symptoms secondary to neuropathy. Minimal bleeding co ntrolled with pressure and nitrate stick. ) Neuro: Normal speech Vitals VITALS Vital Signs Date Time Temp Pulse Resp B/P (MAP) Pulse Ox O2 Delivery O2 Flow Rate FiO2 02/17/20 11:00 98.1 67 18 151/66 (94) 94 Room Air 98.1 Labs Labs Laboratory Tests Test 02/15/20 16:54 02/15/20 21:22 02/16/20 06:40 02/16/20 08:14 Glucose (Fingerstick) 203 mg/dL (70-99) 241 mg/dL (70-99) 256 mg/dL (70-99) White Blood Count 6.2 x10^3/uL (4.0-11.0) Red Blood Count 3.19 x10^6/uL (3.50-5.40) Hemoglobin 9.5 g/dL (12.0-15.5) Hematocrit 27.9 % (36.0-47.0) Mean Corpuscular Volume 87 fL (79-100) Mean Corpuscular Hemoglobin 30 pg (25-35) Mean Corpuscular Hemoglobin Concent 34 g/dL (31-37) Red Cell Distribution Width 13.5 % (11.5-14.5) Platelet Count 156 x10^3/uL (140-400) Neutrophils (%) (Auto) 77 % (31-73) Lymphocytes (%) (Auto) 17 % (24-48) Monocytes (%) (Auto) 4 % (0-9) Eosinophils (%) (Auto) 1 % (0-3) Basophils (%) (Auto) 0 % (0-3) Neutrophils # (Auto) 4.8 x10^3/uL (1.8-7.7) Lymphocytes # (Auto) 1.1 x10^3/uL (1.0-4.8) Monocytes # (Auto) 0.3 x10^3/uL (0.0-1.1) Eosinophils # (Auto) 0.1 x10^3/uL (0.0-0.7) Basophils # (Auto) 0.0 x10^3/uL (0.0-0.2) Sodium Level 142 mmol/L (136-145) Potassium Level 4.7 mmol/L (3.5-5.1) Chloride Level 110 mmol/L (98-107) Carbon Dioxide Level 18 mmol/L (21-32) Anion Gap 14 (6-14) Blood Urea Nitrogen 70 mg/dL (7-20) Creatinine 2.6 mg/dL (0.6-1.0) Estimated GFR (Cockcroft-Gault) 17.4 BUN/Creatinine Ratio 27 (6-20) Glucose Level 280 mg/dL (70-99) Calcium Level 7.7 mg/dL (8.5-10.1) Total Bilirubin 0.3 mg/dL (0.2-1.0) Aspartate Amino Transf (AST/SGOT) 15 U/L (15-37) Alanine Aminotransferase (ALT/SGPT) 13 U/L (14-59) Alkaline Phosphatase 130 U/L (46-116) Total Protein 6.7 g/dL (6.4-8.2) Albumin 2.6 g/dL (3.4-5.0) Albumin/Globulin Ratio 0.6 (1.0-1.7) Test 02/16/20 12:26 02/16/20 16:34 02/17/20 05:55 02/17/20 07:52 Glucose (Fingerstick) 311 mg/dL (70-99) 173 mg/dL (70-99) 304 mg/dL (70-99) Sodium Level 141 mmol/L (136-145) Potassium Level 5.3 mmol/L (3.5-5.1) Chloride Level 111 mmol/L (98-107) Carbon Dioxide Level 17 mmol/L (21-32) Anion Gap 13 (6-14) Blood Urea Nitrogen 68 mg/dL (7-20) Creatinine 2.5 mg/dL (0.6-1.0) Estimated GFR (Cockcroft-Gault) 18.2 BUN/Creatinine Ratio 27 (6-20) Glucose Level 288 mg/dL (70-99) Calcium Level 8.0 mg/dL (8.5-10.1) Total Bilirubin 0.2 mg/dL (0.2-1.0) Aspartate Amino Transf (AST/SGOT) 37 U/L (15-37) Alanine Aminotransferase (ALT/SGPT) 19 U/L (14-59) Alkaline Phosphatase 135 U/L (46-116) Total Protein 6.3 g/dL (6.4-8.2) Albumin 2.8 g/dL (3.4-5.0) Albumin/Globulin Ratio 0.8 (1.0-1.7) Test 02/17/20 11:42 Glucose (Fingerstick) 275 mg/dL (70-99) Laboratory Tests Test 02/16/20 16:34 02/17/20 05:55 02/17/20 07:52 02/17/20 11:42 Glucose (Fingerstick) 173 mg/dL (70-99) 304 mg/dL (70-99) 275 mg/dL (70-99) Sodium Level 141 mmol/L (136-145) Potassium Level 5.3 mmol/L (3.5-5.1) Chloride Level 111 mmol/L (98-107) Carbon Dioxide Level 17 mmol/L (21-32) Anion Gap 13 (6-14) Blood Urea Nitrogen 68 mg/dL (7-20) Creatinine 2.5 mg/dL (0.6-1.0) Estimated GFR (Cockcroft-Gault) 18.2 BUN/Creatinine Ratio 27 (6-20) Glucose Level 288 mg/dL (70-99) Calcium Level 8.0 mg/dL (8.5-10.1) Total Bilirubin 0.2 mg/dL (0.2-1.0) Aspartate Amino Transf (AST/SGOT) 37 U/L (15-37) Alanine Aminotransferase (ALT/SGPT) 19 U/L (14-59) Alkaline Phosphatase 135 U/L (46-116) Total Protein 6.3 g/dL (6.4-8.2) Albumin 2.8 g/dL (3.4-5.0) Albumin/Globulin Ratio 0.8 (1.0-1.7) Assessment/Plan Assessment/Plan Diabetic foot ulcer to the left lateral foot, Gaines grade 1 -Callus debrided at bedside -Cleanse and pat dry. Apply skin prep to surrounding tissue. Cover with foam adhesive. Change every 3 days or as needed if dressing loose or saturated. -Primary care addressing diabetic control. Last hemoglobin A1c on record from 04/2019, 7.8. -Patient with diabetic foot wear, however is greater than 1-year-old. Recommend patient address this with PCP to obtain prescription for new custom fit diabetic shoes. -Dietary consulting to ensure patient with adequate protein for optimal wound healing GREGORY HERNANDEZ APRN Feb 17, 2020 15:52
--- NOTE | 2020-02-17 16:38 | DS ---
DATE OF DISCHARGE: 02/17/2020 REASON FOR ADMISSION TO THE HOSPITAL: Acute on chronic renal failure. HOSPITAL COURSE: The patient is an 89-year-old female who has a history of chronic congestive heart failure, coronary artery disease 3-vessel, not a surgical candidate, also acute on chronic kidney failure. She was having more weakness, generalized. She was found to have elevated BUN and creatinine and she was admitted to the hospital, was given IV fluids. Her BUN was 83, creatinine 3.7. With cautious hydration, BUN 68, creatinine 2.5, her baseline. The patient had a urine, which shows large leukocyte esterase, more than 40 wbc's. White count shows chronic hemoglobin of 9.3. The patient has developed ulcer on the left foot. Wound Care was consulted. The patient had also ultrasound of the kidneys, which shows no evidence of hydronephrosis. Chest x-ray, atelectasis. On the whole, the patient's condition was improving and she was anxious to go home, was discharged. FINAL DIAGNOSES: 1. Acute on chronic kidney disease. 2. Chronic renal failure between stage 3-4, did not want any dialysis in the past. 3. Chronic systolic heart failure, ejection fraction 30%. 4. Chronic 3-vessel coronary artery disease, not a candidate for revascularization. 5. History of breast cancer. 6. Diabetes. 7. Anemia of chronic disease. 8. Urinary tract infection. 9. Left diabetic foot ulcer. DISPOSITION: Home and home health and also PT, OT. Xeroform for the wound. Keflex for UTI and foot ulcer twice a day, 500 b.i.d. PROGNOSIS: Poor. JAMES CORCORAN MD DR: ADRIANA/liang JOB#: [id number] / [id number]
[2020-02-17 17:33] VITALS: BP 132/62
--- NOTE | 2020-02-17 17:33 | RAD ---
EXAM: Abdomen sonogram. HISTORY: Right upper quadrant pain. TECHNIQUE: Sonographic imaging of the abdomen was performed. COMPARISON: None. FINDINGS: The liver is normal in size. No focal hepatic lesion is seen. The gallbladder is surgically absent. The common bile duct is normal in caliber for patient age, measuring 7.7 mm. The pancreas, right kidney and inferior vena cava are unremarkable. There is a right pleural effusion. The aorta is not formally assessed. IMPRESSION: 1. Cholecystectomy. 2. Right pleural effusion. 3. Otherwise, unremarkable abdomen sonogram. Electronically signed by: Elaina Aaron MD (02/17/2020 5:30 PM) [id number]
--- NOTE | 2020-02-17 19:20 | NUR ---
Discharge Note: PT DISCHARGED HOME WITH HOME HEALTH. PT LEFT FACILITY VIA PRIVATE VEHICLE WITH DAUGHTER AT 1903. PT STABLE AND ALERT UPON DISCHARGE. PT PIV REMOVED FROM R FA WITHOUT COMPLICATIONS, BANDAGE APPLIED. PT DAUGHTER EDUCATED ABOUT DISCHARGE INSTRUCTIONS, DISCHARGE MEDICATIONS, AND [id number] INSTRUCTIONS. PRESCRIPTION CALLED INTO [facility] FOR KEFLEX ATB. NO CONCERNS VOICED UPON DISCHARGE. PT LEFT WITH ALL PERSONAL BELONGINGS. SYD HO Discharge instructions and discharge home medications reviewed with Patient and a copy given. All questions have been answered and understanding verbalized.
[2020-02-21] MEDS ORDERED: LEVOTHYROXINE 100 MCG TABLET PO SCH (06:00)
[2020-03-25] MEDS ORDERED: CEFP100T PO (08:58)
[2020-03-25] MEDS ORDERED: SENN-22 PO (08:58)
== END 2020-02-17 19:03 | disposition home health service (06) | DRG 683 ==
LOC: ER 12:53 → ED HOLD 16:39 → 5 NORTH 16:40
PROVIDERS: ADMIT Internal Medicine; ATTEND Internal Medicine
PROC: 0HBNXZZ Excision of Left Foot Skin, External Approach (ICD-10-PCS; principal; 2020-02-15)
DX: N17.9 Acute kidney failure, unspecified (principal); I13.0 Hypertensive heart and chronic kidney disease with heart failure and stage 1 through stage 4 chronic kidney disease, or unspecified chronic kidney disease; I50.22 Chronic systolic (congestive) heart failure; I42.0 Dilated cardiomyopathy; J98.11 Atelectasis; N39.0 Urinary tract infection, site not specified; E11.621 Type 2 diabetes mellitus with foot ulcer; D63.8 Anemia in other chronic diseases classified elsewhere; E03.9 Hypothyroidism, unspecified; E11.22 Type 2 diabetes mellitus with diabetic chronic kidney disease; E11.649 Type 2 diabetes mellitus with hypoglycemia without coma; E78.00 Pure hypercholesterolemia, unspecified; E78.5 Hyperlipidemia, unspecified; G62.9 Polyneuropathy, unspecified; H54.62 Unqualified visual loss, left eye, normal vision right eye; I25.10 Atherosclerotic heart disease of native coronary artery without angina pectoris; I25.2 Old myocardial infarction; I27.20 Pulmonary hypertension, unspecified; L97.529 Non-pressure chronic ulcer of other part of left foot with unspecified severity; N18.4 Chronic kidney disease, stage 4 (severe); Z79.4 Long term (current) use of insulin; Z83.3 Family history of diabetes mellitus; Z85.3 Personal history of malignant neoplasm of breast; Z87.440 Personal history of urinary (tract) infections; Z87.891 Personal history of nicotine dependence; Z90.12 Acquired absence of left breast and nipple; Z96.649 Presence of unspecified artificial hip joint; F32.9 Major depressive disorder, single episode, unspecified; F41.9 Anxiety disorder, unspecified; G89.29 Other chronic pain; K21.9 Gastro-esophageal reflux disease without esophagitis; M19.90 Unspecified osteoarthritis, unspecified site; E11.65 Type 2 diabetes mellitus with hyperglycemia
CPT/HCPCS: 36415; 71045; 76705; 76770; 80048; 80053; 81001; 82962; 83735; 84484; 85025; 93005; 96360; 96361; 99285; J0360; J1815; J7030; G0378